=== PATIENT | female | born 1945 | race Caucasian/White ===

== ENCOUNTER 2020-04-11 19:04 | Inpatient (IN) | payer MEDICARE, SELFPAY ==
[2020-04-11] VITALS (13 sets, daily range): BP systolic 174–205; BP diastolic 42–83; PULSE 66–77; RESP 18–32; TEMP 37.3; O2SAT 70–100; BMI 30.2
--- NOTE | ~2020-04-11 | XR_ITS ---
XR abdomen NG/feed tube insert 04/12/2020 06:18 Indication: OG tube insertion. Procedure: Portable view of the lower chest and upper abdomen Comparison: 12/09/2016 Findings: OG tube in the stomach. Heart size normal. Bilateral perihilar airspace disease, pneumonia versus edema. Visualized bowel gas pattern is nonobstructive. Impression: 1: OG tube in the stomach. Reviewed, dictated and finalized at location A. SHORT ORDER Impression: 1: OG tube in the stomach.
--- NOTE | ~2020-04-11 | XR_ITS ---
XR abdomen obstructive series 04/13/2020 10:51 Indication: Abdomen pain. Evaluate for ileus or small bowel obstruction. Procedure: Supine and upright views of abdomen Comparison: 02/10/2021 Findings: NG tube in the stomach. Bowel gas pattern is nonobstructive. No free air identified. Mild d egenerative changes of the lumbar spine and hips. Vascular calcifications are present. No abnormal ca lcifications overlying the kidneys. Impression: 1: Nonobstructive bowel gas pattern. Reviewed, dictated and finalized at location A. TURE INSPECTOR Impression: 1: Nonobstructive bowel gas pattern.
--- NOTE | ~2020-04-11 | CT_ITS ---
EXAMINATION: CT brain wo con DATE: 04/22/2020 17:51 INDICATION: Possible stroke TECHNIQUE: Computed tomography (CT) of the head was performed without intravenous contrast. Sagittal and coronal reconstructions were performed. The mA was adjusted according to patient size. Iterative reconstruction technique was employed. The dose-length product was 605.33 mGy-cm. COMPARISON: head CT dated 12/09/2016 and MR dated 12/10/2016 FINDINGS: No acute intracranial hemorrhage, acute infarction or abnormal extra axial fluid collection. There is mild scattered white matter hypoattenuation consistent with chronic small vessel ischemic disease. S ymmetric prominence of the sulci and ventricles consistent with mild age-appropriate diffuse cerebral volume loss. No mass/mass effect. The orbits, paranasal sinuses and mastoid air cells are normal. IMPRESSION: 1. Age-related changes including mild diffuse volume loss and mild scattered white matter hypoattenua tion consistent with chronic small vessel ischemic disease. No acute intercranial process. Reviewed, dictated and finalized at location A. BILITATION TECH IMPRESSION: 1. Age-related changes including mild diffuse volume loss and mild scattered wh ite matter hypoattenuation consistent with chronic small vessel ischemic diseas e. No acute intercranial process.
--- NOTE | ~2020-04-11 | MR_ITS ---
EXAMINATION: MR brain/brain stem wo con DATE: 04/25/2020 10:52 INDICATION: Stroke TECHNIQUE: Magnetic resonance imaging (MRI) of the brain and brainstem was performed without intraven ous contrast. Sequences included sagittal and axial T1-weighted SE, axial diffusion-weighted FS SE, a xial T2*-weighted GRE, axial T2-weighted FLAIR, and axial T2-weighted FSE. Apparent diffusion coeffic ient (ADC) maps were created. COMPARISON: Head CT dated 04/22/2020 FINDINGS: There are no areas of restricted diffusion to suggest acute infarction. There are few small old lacun ar infarcts in the right cerebellar hemisphere. No intracranial hemorrhage or abnormal intracranial m ass lesion. There are scattered areas of nonspecific increased T2-weighted signal intensity in the ce rebral white matter, predominantly involving the deep and periventricular white matter. There are no intraparenchymal signal abnormalities seen on the other pulse sequences. Symmetric prominence of the sulci and ventricles consistent with mild age-appropriate diffuse cerebral volume loss. There are no abnormal extra-axial fluid collections. Flow voids are seen in the cerebral arteries on the T2-weight ed sequences consistent with their expected patency. Visualized orbits and soft tissues are unremarka ble. Mild mucosal thickening in the bilateral ethmoid sinuses. IMPRESSION: 1. Age-related changes and a few small old lacunar infarcts in the right cerebellar hemisphere. No ac chinik intracranial process. Reviewed, dictated and finalized at location A. ER AND POWDER CANNING LEADER IMPRESSION: 1. Age-related changes and a few small old lacunar infarcts in the right cerebe llar hemisphere. No acute intracranial process.
--- NOTE | ~2020-04-11 | XR_ITS ---
EXAMINATION: XR fl guide central line place DATE: 04/22/2020 16:07 INDICATION: Tunneled dialysis catheter placement TECHNIQUE: 2 fluoroscopic spot image of the right neck and upper chest was obtained during procedure performed by Dr. Her. Radiologist was not present for the imaging or procedure. The amount of fluoro scopy time used during this procedure was 2.0 minutes. COMPARISON: None. FINDINGS: There is a large-bore dual-lumen tunneled right internal jugular central venous catheter which loops into the right neck for stenting caudally into the superior vena cava with distal tip collimated beyo nd the inferior margin of the [id number]-oiha. Incompletely visualized surgical forceps which are likel y external to the patient. IMPRESSION: 1. Fluoroscopy utilized during right internal jugular tunneled central venous catheter placement. See procedure note for further detail. Reviewed, dictated and finalized at location A. TLESS DENT REPAIR TECHNICIAN IMPRESSION: 1. Fluoroscopy utilized during right internal jugular tunneled central venous c atheter placement. See procedure note for further detail.
--- NOTE | ~2020-04-11 | XR_ITS ---
EXAMINATION: XR chest 1V portable INDICATION: Shortness of breath TECHNIQUE: Portable AP chest at 2028 hours COMPARISON: 01/15/2017 FINDINGS: There are diffuse opacities throughout all lung zones. Small pleural effusions are suggeste d. There is no pneumothorax. The heart size is upper limits of normal for technique. There is calcifi ed atherosclerosis. IMPRESSION: 1. Diffuse lung disease, consistent with pneumonia/or pulmonary edema and/or atelectasis. 2. Small pleural effusions. Reviewed, dictated and finalized at location A. START DIRECTOR IMPRESSION: 1. Diffuse lung disease, consistent with pneumonia/or pulmonary edema and/or at electasis. 2. Small pleural effusions.
--- NOTE | ~2020-04-11 | XR_ITS ---
XR chest 1V portable 04/13/2020 05:52 Indication: Respiratory failure Procedure: AP portable chest Comparison: Comparison to multiple prior studies sequentially, with oldest reviewed study dated 09/2016. Findings: Endotracheal tube tip 1.5 cm above the cristina. NG tube in the stomach. Cardiomegaly. There is diffuse bilateral airspace disease. No significant effusion. No pneumothorax. No acute osseous abn ormality. Impression: 1: Improved bilateral airspace disease which may represent edema or pneumonia. Reviewed, dictated and finalized at location A. PRESIDENT AND PORTFOLIO MANAGER Impression: 1: Improved bilateral airspace disease which may represent edema or pneumonia.
--- NOTE | ~2020-04-11 | XR_ITS ---
EXAMINATION: XR chest port-a-cath/central DATE: 04/22/2020 15:57 INDICATION: Tunneled dialysis catheter placement TECHNIQUE: frontal view of the chest was obtained. COMPARISON: Chest radiograph dated 04/17/2020 FINDINGS: Removal of prior right internal jugular central venous catheter and placement of a new very poor tunn eled dual-lumen right internal jugular central venous catheter with distal tip at the caudal superior vena cava. Prior airspace opacities of resolved. No pulmonary edema, pleural effusion or pneumothora x. The cardiomediastinal silhouette is normal. Atherosclerotic aorta. Mitral annular calcification. IMPRESSION: 1. Right internal jugular central venous catheter tip in the caudal superior vena cava. No acute card iopulmonary disease. Reviewed, dictated and finalized at location A. N BROKER IMPRESSION: 1. Right internal jugular central venous catheter tip in the caudal superior ve na cava. No acute cardiopulmonary disease.
--- NOTE | ~2020-04-11 | US_ITS ---
EXAMINATION: US renal BI EXAM DATE: 04/12/2020 17:37 INDICATION: Elevated creatinine. TECHNIQUE: Multiple grayscale and Doppler images of the kidneys were obtained (by a technologist who performed the scan) and subsequently reviewed. Comparison is made to prior examination from 12/08/2016. FINDINGS: There is bilateral renal cortical thinning. Right kidney: There is normal contour and increased echogenicity. It measures 10.6 x 4.7 x 4.6 centi meters. There are no focal renal lesions identified. There is no hydronephrosis. Left kidney: There is normal contour and increased echogenicity. It measures 9.1 x 4.9 x 5.2 centime ters. There are no focal renal lesions identified. There is no hydronephrosis. Bladder unremarkable. IMPRESSION: 1. Mildly echogenic kidneys consistent with medical renal disease. Mild atrophy. 2. No hydronephrosis. Reviewed, dictated and finalized at location A. TIONSHIP COUNSELOR IMPRESSION: 1. Mildly echogenic kidneys consistent with medical renal disease. Mild atroph y. 2. No hydronephrosis.
--- NOTE | ~2020-04-11 | XR_ITS ---
XR chest 1V portable 04/15/2020 06:28 Indication: Respiratory failure Procedure: AP portable chest Comparison: Comparison to multiple prior studies sequentially, with oldest reviewed study dated 06/2020. Findings: Cardiomegaly. Interval removal of endotracheal and NG tubes. Diffuse bilateral airspace dis ease. Small pleural effusions. Impression: 1: Increasing diffuse bilateral airspace disease which may represent edema or pneumonia. 2: Small pleural effusions. Reviewed, dictated and finalized at location A. OGRAPHIC AIDE Impression: 1: Increasing diffuse bilateral airspace disease which may represent edema or p neumonia. 2: Small pleural effusions.
--- NOTE | ~2020-04-11 | US_ITS ---
EXAMINATION: US carotid duplex BI DATE: 04/23/2020 14:39 INDICATION: Stroke. TECHNIQUE: Grayscale, color Doppler, and pulsed Doppler images of the cervical carotid arteries were obtained. The degree of vessel stenosis is placed in one of the following categories: normal, <50%, 5 0-69%, >=70% but less than near-occlusion, near-occlusion, or total occlusion. Note that percent sten osis relative to normal distal artery lumen diameter is indirectly measured from velocity measurement s as described by Musa, et al. Radiology 2003; [id number]:340-346. COMPARISON: None. FINDINGS: RIGHT: The right common carotid artery (CCA) peak systolic velocity (PSV) is 50 cm/s. The right internal car otid artery (ICA) PSV is 89 cm/s. The right ICA end-diastolic velocity (EDV) is 21 cm/s. The right IC A/CCA PSV ratio is 1.8. Grayscale and color Doppler images yield an estimate of <50% diameter reducti on from plaque in the ICA. There is antegrade flow in the right vertebral artery. There is a catheter in right internal jugular vein. There is thrombus in right internal jugular vein. LEFT: The left CCA PSV is 81 cm/s. The left ICA PSV is 198 cm/s. The left ICA EDV is 19 cm/s. The left ICA/ CCA PSV ratio is 2.4. Grayscale and color Doppler images yield an estimate of >=50% diameter reductio n from plaque in the ICA. There is antegrade flow in the left vertebral artery. IMPRESSION: 1. <50% stenosis in the right internal carotid artery. 2. 50-69% stenosis in the left internal carotid artery. 3. Thrombus in right internal jugular vein around the catheter. Reviewed, dictated and finalized at location A. SUPPORT REPRESENTATIVE
--- NOTE | ~2020-04-11 | XR_ITS ---
XR chest 1V portable 04/17/2020 06:00 Indication: Respiratory failure Procedure: AP portable chest Comparison: Comparison to multiple prior studies sequentially, with oldest reviewed study dated 09/2020. Findings: Bilateral airspace disease, right greater than left. Peribronchial thickening. No significa nt effusion or pneumothorax. Large bore central venous catheter tip in the right atrium. No pneumotho rax. Impression: 1: Progression of diffuse bilateral airspace disease, right greater than left, most likely edema. Pne umonia less favored. Reviewed, dictated and finalized at location A. R HELPER Impression: 1: Progression of diffuse bilateral airspace disease, right greater than left, most likely edema. Pneumonia less favored.
--- NOTE | ~2020-04-11 | XR_ITS ---
XR chest 1V portable 04/16/2020 06:16 Indication: Respiratory failure Procedure: AP portable chest Comparison: Comparison to multiple prior studies sequentially, with oldest reviewed study dated 07/2020. Findings: Cardiomegaly. Diffuse pulmonary edema. Small pleural effusions. No pneumothorax. No acute o sseous abnormality. There is atherosclerosis. Impression: 1: Diffuse bilateral airspace disease, compatible with edema. 2: Small pleural effusions. Reviewed, dictated and finalized at location A. L ANALYST Impression: 1: Diffuse bilateral airspace disease, compatible with edema. 2: Small pleural effusions.
--- NOTE | ~2020-04-11 | XR_ITS ---
XR chest 1V portable 04/14/2020 06:13 Indication: Respiratory failure Procedure: AP portable chest Comparison: Comparison to multiple prior studies sequentially, with oldest reviewed study dated 12/2016. Findings: Borderline heart size. Bilateral perihilar interstitial infiltration with peribronchial thi ckening. Endotracheal tube tip 1 cm above the cristina. NG tube in the stomach. No significant pleural effusion or pneumothorax. No acute osseous abnormality. Impression: 1: Improving bilateral perihilar interstitial infiltrates which may represent edema or atypical pneum onia. Reviewed, dictated and finalized at location A. BLENDER Impression: 1: Improving bilateral perihilar interstitial infiltrates which may represent e liana or atypical pneumonia.
--- NOTE | ~2020-04-11 | XR_ITS ---
XR chest ET placement 04/12/2020 06:18 Indication: Endotracheal tube placement Procedure: AP portable chest Comparison: Comparison to multiple prior studies sequentially, with oldest reviewed study dated 05/2016. Findings: Endotracheal tube tip 11 mm above the cristina. NG tube in the stomach. Heart size normal. Th ere is diffuse bilateral airspace disease. No significant pleural effusion or pneumothorax. Impression: 1: Diffuse bilateral airspace disease has progressed, edema versus pneumonia. Reviewed, dictated and finalized at location A. GE PUMPER Impression: 1: Diffuse bilateral airspace disease has progressed, edema versus pneumonia.
--- NOTE | ~2020-04-11 | XR_ITS ---
EXAMINATION: XR mandible min 4V DATE: 04/26/2020 09:17 INDICATION: Foreign body in the face. TECHNIQUE: 2 views of the mandible were obtained. COMPARISON: None. FINDINGS: Bone alignment is normal. No fracture. There is no radiopaque foreign body. Partially visua lized is a right internal jugular central venous catheter. IMPRESSION: 1. No radiopaque foreign body. Reviewed, dictated and finalized at location B. FIELD SERVICE ENGINEER
--- NOTE | ~2020-04-11 | XR_ITS ---
XR chest port-a-cath/central 04/16/2020 11:38 Indication: Dialysis line placement Procedure: AP portable chest Comparison: Comparison to multiple prior studies sequentially, with oldest reviewed study dated 08/2020. Findings: Heart size upper normal. There is bilateral airspace disease centered in the perihilar loca tions. Large bore central venous catheter tip in the right atrium. No pneumothorax. No acute osseous abnormality. Impression: 1: Bilateral airspace disease, most likely edema. Pneumonia less favored. Reviewed, dictated and finalized at location A. ANALYTICS DEVELOPER Impression: 1: Bilateral airspace disease, most likely edema. Pneumonia less favored.
--- NOTE | 2020-04-11 19:15 | ECG_ITS ---
Measurements Intervals [place] Rate: 78 P: 18 SD: 142 QRS: 44 QRSD: 106 T: -24 QT: 375 QTc: 430 Interpretive Statements SINUS RHYTHM POSSIBLE LEFT ATRIAL ENLARGEMENT ST-T WAVE ABNORMALITY IN ANTEROLAT/INF LEADS- CONSIDER ISCHEMIA BASELINE ARTIFACT- I, III, AVR, AVL, AVF, V1-V2 ABNORMAL ECG Electronically Signed On 04-12-2020 7:02:22 TECHNICAL DELIVERY MANAGER by Floyd Multani D.O.
[2020-04-11] MEDS: FUROSEMIDE INJ 40 MG/4 ML VIAL IV PUSH (19:37)
[2020-04-11] MEDS: NITROGLYCERIN OINTMENT 1 INCH DOSE TRANSDERM (19:37)
[2020-04-11 19:42] LABS: Basophils Absolute Auto 0.1 K/mm3 (0.0-0.1); Basophils Percent Auto 0.4 % (0.2-1.2); Eosinophils Absolute Auto 0.1 K/mm3 (0-0.3); Eosinophils Percent Auto 0.5 % (0-4.4); Hematocrit 28.1 % (37.0-47.0); Hemoglobin 9.1 g/dL (12.0-15.0); Immature Granulocyte Absolute 0.15 K/mm3 (0.00-0.031); Immature Granulocyte Percent A 0.8 % (0-0.5); Lymphocytes Absolute Auto 0.89 K/mm3 (0.9-3.2); Lymphocytes Percent Auto 4.6 % (18.3-44.2); Mean Corpuscular HGB Conc 32.4 g/dl (32-36); Mean Corpuscular Hemoglobin 30.7 pg (26-34); Mean Corpuscular Volume 94.9 fl (80-100); Mean Platelet Volume 9.1 fl (7.4-10.4); Monocytes Absolute Auto 1.5 K/mm3 (0.1-0.6); Monocytes Percent Auto 7.5 % (2.6-8.5); Neutrophils Absolute Auto 16.9 K/mm3 (1.3-6.7); Neutrophils Percent Auto 86.2 % (45.5-73.1); Platelet Count Result 199 k/mm3 (150-375); Red Blood Count 2.96 M/mm3 (4.2-5.4); Red Cell Distribution Width 13.6 % (11.5-14.5); White Blood Count 19.6 K/mm3 (4.5-10.0)
[2020-04-11 19:52] LABS: Anion Gap 9 mmol/L (8-16); Blood Urea Nitrogen 45 mg/dL (7-17); Calcium 8.9 mg/dL (8.4-10.2); Carbon Dioxide 23 mmol/L (22-30); Chloride 106 mmol/L (98-107); Estimated Glomerular Filt Rate 11; Glucose 194 mg/dL (65-105); INR 1.2; Potassium 3.8 mmol/L (3.4-5.0); Prothrombin Time 16.2 Seconds (11.1-14.7); Sodium 138 mmol/L (137-145)
[2020-04-11 19:53] LABS: Partial Thromboplastin Time 36.9 SECONDS (22.3-36.8)
[2020-04-11 20:14] LABS: NT Pro B Type Natriuretic Pept 11700 PG/ML (5-100)
--- NOTE | 2020-04-11 21:04 | PC.NURSE ---
Patient's instructed to leave. Patient's Tramaine, left phone number of [phone].
--- NOTE | 2020-04-11 21:04 | ED.GENADULT ---
HPI - General Adult General Chief complaint: Shortness of Breath/Dyspnea Stated complaint: SOB Time Seen by Provider: 04/11/20 19:23 History of Present Illness HPI narrative: Patient is a 75-year-old female who presents the emergency department with chief complaint of shortness of breath. The patient reports she has history of congestive heart failure and has had some peripheral edema and increasing shortness of breath. Patient states that today she has been progressive on her shortness of breath and tonight it has gotten significantly worse. Patient when she presented to our facility had a room air saturation of 70%. Patient was also in severe shortness of breath and also had a significantly elevated blood pressure. Related Data Home Medications Medication Instructions Recorded Confirmed aspirin 81 mg tablet,delayed 81 mg PO DAILY 02/21/19 04/07/20 release cholecalciferol (vitamin D3) 50 2,000 unit PO DAILY 02/21/19 04/07/20 mcg (2,000 unit) tablet multivit with 1 tablet PO DAILY 06/25/19 04/07/20 amfdqtge-akoh-RL-lutein 8 mg iron-400 mcg-300 mcg tablet omega-3 fatty acids 1,000 mg 1,000 mg PO BID 06/25/19 04/07/20 capsule pen needle, diabetic 32 gauge x #100 each 06/25/19 04/07/20 1/ rosuvastatin 40 mg tablet 40 mg PO DAILY 06/25/19 04/07/20 carvedilol 12.5 mg tablet 12.5 mg PO Q12H 08/26/19 04/07/20 guanfacine 1 mg tablet 1 mg PO DAILY 08/26/19 04/07/20 Allergies Allergy/AdvReac Type Severity Reaction Status Date / Time Sulfa (Sulfonamide Allergy Mild RASH Verified 08/26/19 09:26 Antibiotics) Review of Systems Review of Systems: Narrative: A 10 system review of systems was completed on the patient and is negative except for what is stated in the HPI. Nursing and ancillary documentation was reviewed. [facility] Past Medical History Medical History Endocarditis Hyperthyroidism Other heart block Stage 3 chronic kidney disease Family History Family History Sibling Family history of Alzheimer's disease Grandparent Carcinoma of colon Father Family history of heart disease in male family member before age 55 Mother Family history of heart disease in male family member before age 55 Other Cerebrovascular accident Diabetes mellitus Hypertension Social History Social History Smoking packs per day: 1 Smoking cigarettes per day: 20.0 Years smoked: 25 Smoking pack-years: 25.00 Smoking status: Former smoker Tobacco type: cigarettes Second hand tobacco smoke exposure: No Smoking end date: 04/09/92 Alcohol intake: never Spiritual care concerns: No Exam Narrative: Exam Narrative: GENERAL: Well-appearing, well-nourished, and in acute respiratory distress. HEAD: Normocephalic, atraumatic. EYES: PERRLA and EOMI. ENT: Nares clear, no rhinorrhea or epistaxis. Mucous membranes moist. NECK: Supple. CHEST: Clear to auscultation. Moderate respiratory distress. HEART: Regular rate and rhythm. No murmur heard. Normal peripheral pulses. ABDOMEN: Soft, nontender, nondistended, normal active bowel sounds. EXTREMITIES: Normal range of motion. 3+ edema. SKIN: Warm, dry, no rash. NEURO: No focal deficits. Alert and oriented x3. PSYCH: Normal mood and affect. Course Course Emergency Course: Chest x-ray shows findings consistent with congestive heart failure BNP was 11,000 troponin is elevated at 1.207 Vital Signs Vital signs: Vital Signs Temperature 37.3 C 04/11/20 19:20 Pulse Rate 77 04/11/20 19:20 Respiratory Rate 32 H 04/11/20 19:20 Blood Pressure 205/61 H 04/11/20 19:20 Pulse Oximetry 70 L 04/11/20 19:20 Temperature 37.3 C 04/11/20 19:20 Pulse Rate 68 04/11/20 21:30 Respiratory Rate 25 H 04/11/20 21:30 Blood Pressure 181/56 H 04/11/20 21:30 Pulse Oxim
[2020-04-11] MEDS: ASPIRIN 81 MG CHEWABLE TABLET 324 MG PO (21:24)
[2020-04-11] MEDS: HEPARIN SODIUM 5,000 UNITS/ML VIAL 4000 UNITS IV PUSH (21:50)
--- NOTE | 2020-04-11 22:22 | PM.IMHP ---
H&P: HPI History of Present Illness Date/Time: 04/11/20 22:22 Chief Complaint: shortness of breath Narrative: This is a pleasant 75 year old female with known CAD+ s/p MT s/p #1 coronary stent placed, CHF, and HTN who presented to the hospital with increased shortness of breath over the past day. She remarks that she has had increased shortness of breath over the past day. She has had chronic lower extremity swelling which she does not think has changed recently. She denies any significant coughing, fevers, chills, palpitations, chest pain, nausea, vomiting, abdominal pain, dysuria, hematuria, diarrhea, or rectal bleeding. The patient was found to be hypoxic on arrival to the ER and placed on 4L of supplemental oxygen. Chest xray demonstrated cardiomegaly and bilateral pulmonary edema. Routine labs showed an elevated troponin of 1.270. The patient has been treated with IV lasix and anticoagulated with IV heparin. ER provider has consulted Cardiology. We have been asked to admit her to the hospital for further care. No other complaints. Review of Systems Review of Systems: All systems reviewed & are unremarkable except as noted in HPI and below PMFSH Past Medical History Medical History (Updated 04/12/20 @ 04:47 by Juan Ramon Rhodes MD) Endocarditis Hyperthyroidism Other heart block Stage 3 chronic kidney disease Surgical History Surgical History (Updated 04/11/20 @ 22:30 by Juan Ramon Rhodes MD) History of coronary artery stent placement Family History Family History Sibling Family history of Alzheimer's disease Grandparent Carcinoma of colon Father Family history of heart disease in male family member before age 55 Mother Family history of heart disease in male family member before age 55 Other Cerebrovascular accident Diabetes mellitus Hypertension Social History Social History Smoking packs per day: 1 Smoking cigarettes per day: 20.0 Years smoked: 25 Smoking pack-years: 25.00 Smoking status: Former smoker Tobacco type: cigarettes Second hand tobacco smoke exposure: No Smoking end date: 04/09/92 Alcohol intake: never Substance use: never Substance use type: does not use Spiritual care concerns: No Meds Home Medications and Allergies Home Medications Medication Instructions Recorded Confirmed Type aspirin 81 mg tablet,delayed 81 mg PO DAILY 02/21/19 04/07/20 History release cholecalciferol (vitamin D3) 50 2,000 unit PO DAILY 02/21/19 04/07/20 History mcg (2,000 unit) tablet multivit with 1 tablet PO DAILY 06/25/19 04/07/20 History amiuwraf-uvka-YJ-lutein 8 mg iron-400 mcg-300 mcg tablet omega-3 fatty acids 1,000 mg 1,000 mg PO BID 06/25/19 04/07/20 History capsule pen needle, diabetic 32 gauge x #100 each 06/25/19 04/07/20 History 1/6 rosuvastatin 40 mg tablet 40 mg PO DAILY 06/25/19 04/07/20 History amlodipine 10 mg tablet 10 mg PO DAILY #90 tablet 08/26/19 04/07/20 Rx carvedilol 12.5 mg tablet 12.5 mg PO Q12H 08/26/19 04/07/20 History guanfacine 1 mg tablet 1 mg PO DAILY 08/26/19 04/07/20 History isosorbide mononitrate 30 mg 60 mg PO DAILY #180 tablet 11/14/19 04/07/20 Rx tablet,extended release 24 hr furosemide 80 mg tablet 80 mg PO QAM #45 tablet 12/22/19 04/07/20 Rx insulin detemir U-100 100 unit/mL See Rx Instructions SUB-Q .COMPLEX 01/15/20 04/07/20 Rx (3 mL) subcutaneous pen #15 ml blood sugar diagnostic #300 each 02/12/20 04/07/20 Rx hydralazine 25 mg tablet 75 mg PO TID #270 tablet 02/12/20 04/07/20 Rx levothyroxine 75 mcg tablet See Rx Instructions .ROUTE 03/08/20 04/07/20 Rx .COMPLEX #90 tablet epoetin oscar 20,000 unit/2 mL 20,000 unit SUBCUT 2XW #2 ml 03/10/20 04/07/20 Rx injection solution clopidogrel 75 mg tablet See Rx Instructions .ROUTE 03/24/20 04/07/20 Rx .COMPLEX #90 tablet Allergies Aller
[2020-04-11] MEDS: HEPARIN SOD/D5W 100 UNITS/ML 25,000 UNITS/250 ML BAG 9 UNITS IV CONT (23:21)
--- NOTE | 2020-04-11 23:33 | ADMGEN ---
This patient, Jing Lawson, was admitted to [facility]. Patient/family oriented to hospital policies and general routines including ID bracelet, bed and alarms, visiting hours, pain management, procedures, bathroom and other care routines, personal items, smoking policy, room service/diet, and visiting hours. Information on how to activate the Rapid Response Team has been discussed. Patient/Family are encouraged to report perceived risks to care and to ask questions if they do not understand what they are told or what they should do.
[2020-04-11] MEDS: hydrALAZINE HCL 20 MG/ML VIAL 10 MG IV PUSH (23:51)
[2020-04-12] VITALS (36 sets, daily range): BP systolic 112–208; BP diastolic 40–91; PULSE 44–90; RESP 14–32; TEMP 34.7–37.7; O2SAT 68–100; BMI 30.2
--- NOTE | 2020-04-12 | ECHO_ITS ---
Patient Info Name: Jing Lawson Age: 75 years : 1945 Gender: Female Ht: 67 in Wt: 193 lbs BSA: 2.06 m2 HR: 53 bpm BP: 134 / 78 mmHg Heart Rhythm: Bradycardia Technical Quality: Good Exam Date: 04/12/2020 3:09 PM Exam Location: [facility] Pulmonary Exam Room: ICU Patient Status: Inpatient Admit Date: 04/11/2020 Staff Ordering Physician: Oz Rich MD Public Safety Teacher: Allyson Magallon RDCS Attending Provider: Juan Ramon Rhodes MD Referring Physician: Layla MONTENEGRO; Exam Type: CA echo doppler color flow Study Info Indications - elevated troponin chf Complete two-dimensional, color flow and Doppler transthoracic echocardiogram is performed. Summary 1. Complete two-dimensional, color flow and Doppler transthoracic echocardiogram is performed. 2. Left ventricular chamber dimension is normal. 3. Left ventricular systolic function is normal, estimated at 60-65%. 4. There is moderately increased left ventricular wall thickness. 5. The left ventricular diastolic function is grade I diastolic dysfunction. 6. The basal inferior wall, and mid inferior wall are hypokinetic. 7. Left atrial chamber dimension is moderately enlarged. 8. The mitral valve has calcified annulus and anterior prolapse. 9. There is mild mitral valve regurgitation. 10. There is mild tricuspid valve regurgitation. 11. Mild pulmonary hypertension, estimated pulmonary arterial systolic pressure is 37 mmHg. Left Ventricle Left ventricular chamber dimension is normal. Left ventricular systolic function is normal, estimated at 60-65%. There is moderately increased left ventricular wall thickness. The left ventricular diastolic function is grade I diastolic dysfunction. The basal inferior wall, and mid inferior wall are hypokinetic. All other dutta appear normal. Right Ventricle Right ventricular chamber dimension is normal. Right ventricular systolic function is normal. Left Atria Left atrial chamber dimension is moderately enlarged. Right Atria Right atrial chamber dimension is normal. Atrial Septum Intact interatrial septum visualized by color flow imaging. Aortic Valve The aortic valve is probable trileaflet. There is mild aortic valve sclerosis. There is no aortic valve stenosis. There is trace aortic valve regurgitation. Pulmonic Valve The pulmonic valve is normal. There is no pulmonic valve stenosis. There is trace pulmonic regurgitation. Mitral Valve The mitral valve has calcified annulus and anterior prolapse. There is no mitral valve stenosis. There is mild mitral valve regurgitation. Tricuspid Valve The tricuspid valve leaflets are normal. There is no significant tricuspid valve stenosis. There is mild tricuspid valve regurgitation. Mild pulmonary hypertension, estimated pulmonary arterial systolic pressure is 37 mmHg. Pericardium/Pleural The pericardium appears normal. There is small pericardial effusion. Inferior Vena Cava Dilated inferior vena cava with <50% collapse upon inspiration consistent with elevated right atrial pressure, 10 mmHg. Aorta The aortic root size at the sinus of Valsalva is normal. The prox ascending aorta size is normal. There is mild aortic atherosclerosis. Left Ventricular Outflow Tract Name Value Normal LVOT 2D
--- NOTE | 2020-04-12 05:15 | ECG_ITS ---
Measurements Intervals [place] Rate: 82 P: 6 LA: 124 QRS: 26 QRSD: 104 T: -84 QT: 361 QTc: 423 Interpretive Statements SINUS RHYTHM POSSIBLE LEFT ATRIAL ENLARGEMENT ST-T WAVE ABNORMALITY IN INF/LAT LEADS- CONSIDER ISCHEMIA ABNORMAL ECG Electronically Signed On 04-12-2020 7:11:58 MULTI SPINDLE OPERATOR by Floyd Multani D.O.
[2020-04-12 05:30] LABS: Alveolar/Arterial O2 Gradient 329.1 mmHg; Base Excess ABG -2.9 mEq/l (+/-2.0); Fractional Inspired Oxygen 60 %; HCO3 ABG 22.2 mEq/l (22.0-26.0); Modified Allen's Test Pass; Oxygen Content ABG 12.7 %vol (16.0-22.0); Oxygen Saturation ABG 88.1 % (95.0-100.0); Oxyhemoglobin 86.7 % THb (90.0-100.0); PCO2 ABG 39.4 mmHg (35.0-45.0); PO2 ABG 55.4 mmHg (80.0-100.0); PO2 FiO2 Ratio Arterial Blood 0.92 %; Site Drawn LEFT RADIAL; Total Hemoglobin 10.4 g/dL (12.0-18.0); pH ABG 7.368 (7.350-7.450)
[2020-04-12 05:32] LABS: Device NON-REBREATHER MASK
[2020-04-12 05:49] LABS: Glucose Point of Care 192 (65-105)
[2020-04-12 05:53] LABS: Basophils Absolute Auto 0.1 K/mm3 (0.0-0.1); Basophils Percent Auto 0.4 % (0.2-1.2); Eosinophils Absolute Auto 0.1 K/mm3 (0-0.3); Eosinophils Percent Auto 0.4 % (0-4.4); Hematocrit 30.1 % (37.0-47.0); Hemoglobin 9.8 g/dL (12.0-15.0); Immature Granulocyte Absolute 0.14 K/mm3 (0.00-0.031); Immature Granulocyte Percent A 0.8 % (0-0.5); Lymphocytes Absolute Auto 0.97 K/mm3 (0.9-3.2); Lymphocytes Percent Auto 5.3 % (18.3-44.2); Mean Corpuscular HGB Conc 32.6 g/dl (32-36); Mean Corpuscular Hemoglobin 30.7 pg (26-34); Mean Corpuscular Volume 94.4 fl (80-100); Mean Platelet Volume 9.2 fl (7.4-10.4); Monocytes Absolute Auto 1.4 K/mm3 (0.1-0.6); Monocytes Percent Auto 7.4 % (2.6-8.5); Neutrophils Absolute Auto 15.8 K/mm3 (1.3-6.7); Neutrophils Percent Auto 85.7 % (45.5-73.1); Platelet Count Result 201 k/mm3 (150-375); Red Blood Count 3.19 M/mm3 (4.2-5.4); Red Cell Distribution Width 13.4 % (11.5-14.5); White Blood Count 18.4 K/mm3 (4.5-10.0)
[2020-04-12 05:59] LABS: Partial Thromboplastin Time 84.3 SECONDS (22.3-36.8)
--- NOTE | 2020-04-12 06:14 | PCRCNOTE ---
AT 05:20 AM I GAVE PT A ALBUTEROL TX. PT LUNGS WERE DIMINISHED AND RR IN 30'S-40'S. PT THEN WAS MOVED TO ICU WHERE I ASSISTED WITH INTUBATION 7.5 TUBE AT 25 AT THE LIP.
[2020-04-12] MEDS: SUCCINYLCHOLINE CHLORIDE 20 MG/ML 10 ML VIAL 100 MG IV PUSH (06:15)
[2020-04-12] MEDS: ETOMIDATE 20 MG/10 ML AMPUL 15 MG IV PUSH (06:15)
[2020-04-12] MEDS: FENTANYL 2,500MCG/NS250ML(*CRX 2,500 MCG/250 ML BAG IV CONT (06:16)
[2020-04-12 06:18] LABS: Anion Gap 9 mmol/L (8-16); Blood Urea Nitrogen 45 mg/dL (7-17); Calcium 8.8 mg/dL (8.4-10.2); Carbon Dioxide 24 mmol/L (22-30); Chloride 105 mmol/L (98-107); Estimated CRCL calculation 12 ml/min; Estimated Glomerular Filt Rate 11; Glucose 199 mg/dL (65-105); Magnesium 2.2 mg/dL (1.6-2.3); Potassium 3.8 mmol/L (3.4-5.0); Sodium 138 mmol/L (137-145)
--- NOTE | 2020-04-12 06:18 | P.PNCROSS_ITS ---
Event Note Event Note Event Note: RAPID RESPONSE NOTE Called to bedside via rapid response. Nursing staff found the patient to be severely short of breath after using the commode. On my arrival to bedside the patient is on a nonrebreather, diaphoretic and tachypneic w/ RR in the mid 40s. Auscultation revealed bilateral coarse breath sounds and crackles. We obtained a STAT EKG and ABG. ABG demonstrated a PO2 of 55 mm Hg. The patient appeared very fatigued and in jackelin respiratory failure. I was going to initiate the patient on Bipap although she suddenly became very nauseated and began to gag. I gave the patient another dose of IV lasix and transferred her to the ICU. She was intubated in the ICU and placed on mechanical ventilation. We will obtain her morning labs now and repeat ABG. CXR was obtained. I have consulted and discussed the case in detail with our Hospital Product Specialist, Dr. Oropeza. Nursing staff has informed Cardiology of the overnight events. I will continue to assess the patient as needed.
--- NOTE | 2020-04-12 06:18 | WPDPROCEDUR ---
Procedures Intubation Intubation Date: 04/12/20 Intubation Time: 05:40 A pre-procedural Time-Out was completed immediately before starting the procedure and confirmed: Patient Identification, Site, Procedure, Patient Position and the Availability of Requisite Equipment: Yes Sedative: etomidate Mg given: 15 Paralytic: succinylcholine Mg given: 100 Laryngoscope: Watson ET tube size: 7.5 Tube secured depth (cm): 25 Tube secured location: teeth Tube placement confirmation: visualized tube passing through cords, equal breath sounds bilaterally, no breath sounds over epigastrium and confirmation by capnometry Patient tolerated procedure: well Intubation complications: none Additional comments: Date of service was 04/12/2020 at 05:40 hrs.
[2020-04-12] MEDS: RAPID SEQUENCE INTUBATION KIT 1 EACH (06:26)
[2020-04-12 08:17] LABS: Alveolar/Arterial O2 Gradient 561.8 mmHg; Base Excess ABG -4.7 mEq/l (+/-2.0); Carboxyhemoglobin 0.2 % THb (0-2.0); Fractional Inspired Oxygen 100 %; HCO3 ABG 21.3 mEq/l (22.0-26.0); Methemoglobin ABG 0.4 %THb (0-1.5); Oxygen Saturation ABG 97.5 % (95.0-100.0); PCO2 ABG 43.3 mmHg (35.0-45.0); PO2 ABG 107.9 mmHg (80.0-100.0); PO2 FiO2 Ratio Arterial Blood 1.08 %; Reduced Hemoglobin 3.4 %THb (0-5.0); Total Hemoglobin 9.5 g/dL (12.0-18.0); pH ABG 7.309 (7.350-7.450)
[2020-04-12 08:18] LABS: Arterial Blood Gas PEEP 5 cmH2O; Arterial Blood Gas Vent Mode CMV; Arterial Blood Gas Ventilator rate 14 /MIN; Device VENTILATOR; Modified Allen's Test Pass; Site Drawn RIGHT RADIAL
[2020-04-12 08:19] LABS: Arterial Blood Gas Tidal Volume 400 ml
[2020-04-12] MEDS: INSULIN ASPART (*BKC) 100 UNITS/ML SUB-Q (09:20)
[2020-04-12] MEDS: FUROSEMIDE INJ 100 MG/10 ML VIAL 80 MG IV PUSH ×2 (09:21→17:56)
[2020-04-12] MEDS: carvediloL 6.25 MG TABLET PO (09:23)
[2020-04-12] MEDS: ROSUVASTATIN 10 MG TABLET 40 MG PO (09:23)
[2020-04-12 09:34] LABS: Glucose Point of Care 214 (65-105)
--- NOTE | 2020-04-12 11:10 | WPDCNINT ---
Assessment and Plan Assessment and plan (1) Acute respiratory failure: Qualifiers: Respiratory failure complication: hypoxia Qualified Code(s): J96.01 - Acute respiratory failure with hypoxia Code(s): J96.00 - Acute respiratory failure, unspecified whether with hypoxia or hypercapnia Status: Acute Assessment and Plan: Acute Respiratory failure secondary to pulmonary edema and congestive heart failure, possible pneumonia as patient has elevated white count and had episode of fever Continue full mechanical ventilation support to prevent hypoxemia/hypercarbia and end organ damage. ABG and PCXR reviewed and will repeat in am. Increase PEEP to 8 Start Lasix IV 80 mg q.8 hours Rocephin and doxycycline Blood culture already sent (2) Acute CHF: Qualifiers: Heart failure type: unspecified Qualified Code(s): I50.9 - Heart failure, unspecified Code(s): I50.9 - Heart failure, unspecified Status: Acute Assessment and Plan: Repeat echocardiogram ordered (3) Acute non-ST elevation myocardial infarction (NSTEMI): Code(s): I21.4 - Non-ST elevation (NSTEMI) myocardial infarction Status: Acute Assessment and Plan: r/o NSTEMI w/ elevated troponin. EKG reviewed and does not show any ST elevation Continue aspirin , anticoagulation with IV heparin. Trend troponin. Resume statin Cardiology consult (4) Chronic renal failure, stage 4 (severe): Code(s): N18.4 - Chronic kidney disease, stage 4 (severe) Status: Acute Assessment and Plan: Patient was seen by welfare worker as an outpatient and was considered close to needing dialysis Her creatinine today is 4.1. I will start patient on Lasix and see if she responds and produces urine She may need dialysis for volume control if does not respond to diuretic therapy I have consulted Dr. Gee who has also seen her as an outpatient (5) Type 2 diabetes mellitus without complication: Qualifiers: Diabetes mellitus senior care insulin use: with cableman use Qualified Code(s): E11.9 - Type 2 diabetes mellitus without complications; Z79.4 - retail mortgage banker (current) use of insulin Code(s): E11.9 - Type 2 diabetes mellitus without complications Status: Chronic Assessment and Plan: Accuchecks, SSI Coverage, hypoglycemic protocol. (6) Hyperlipidemia: Qualifiers: Hyperlipidemia type: unspecified Qualified Code(s): E78.5 - Hyperlipidemia, unspecified Code(s): E78.5 - Hyperlipidemia, unspecified Status: Acute Assessment and Plan: Resume rosuvastatin (7) GERD (gastroesophageal reflux disease): Qualifiers: Esophagitis presence: esophagitis presence not specified Qualified Code(s): K21.9 - Gastro-esophageal reflux disease without esophagitis Code(s): K21.9 - Gastro-esophageal reflux disease without esophagitis Status: Acute Assessment and Plan: Start PPI therapy. (8) Hypothyroidism: Qualifiers: Hypothyroidism type: unspecified Qualified Code(s): E03.9 - Hypothyroidism, unspecified Code(s): E03.9 - Hypothyroidism, unspecified Status: Acute Assessment and Plan: Resume levothyroxine PO. Additional Plan DVT prophylaxis -patient currently on IV heparin infusion Stress ulcer prophylaxis -start PPI Nutrition -start Tube Feeds Code Status - Full Code Total Critical Care Time - 40 minutes Due to a high probability of clinically significant, life threatening deterioration, the patient required my highest level of preparedness to intervene emergently and I personally spent this critical care time directly and personally managing the patient. This critical care time included obtaining a history; examining the patient; pulse oximetry; ordering and review of studies; arranging urgent treatment with development of a management plan; evaluation of patient's response to treatment; frequent reassessme
[2020-04-12 11:41] LABS: Partial Thromboplastin Time 97.7 SECONDS (22.3-36.8)
--- NOTE | 2020-04-12 11:52 | PM.CNCAR ---
Assessment and Plan Assessment and plan (1) Acute on chronic renal failure: Code(s): N17.9 - Acute kidney failure, unspecified; N18.9 - Chronic kidney disease, unspecified Status: Acute Assessment and Plan: Followed by Nephrology (2) Coronary disease: Code(s): I25.10 - Atherosclerotic heart disease of [place] coronary artery without angina pectoris Status: Acute Assessment and Plan: history of stenting. Continue heparin, aspirin. Add clopidogrel 75 mg daily. (3) Elevated troponin: Code(s): R77.8 - Other specified abnormalities of plasma proteins Status: Acute Assessment and Plan: troponins are elevated but without significant rise or fall. This could be related to underlying renal failure versus sepsis. Cannot completely exclude ACS. Continue heparin drip. 2D echocardiogram with Doppler to be ordered and reviewed. Coronavirus swab to be performed (4) Acute on chronic diastolic (congestive) heart failure: Code(s): I50.33 - Acute on chronic diastolic (congestive) heart failure Status: Acute Assessment and Plan: Agree with IV Lasix aggressively in the form of furosemide 80 mg q.8 hours. (5) Hypertension associated with diabetes: Code(s): E11.59 - Type 2 diabetes mellitus with other circulatory complications; I15.2 - Hypertension secondary to endocrine disorders Status: Acute Assessment and Plan: Continue carvedilol. Up titrate as able. Further recommendations depend on the above test results and response to treatment. Very well may need dialysis for volume removal. History of Present Illness History of Present Illness Consult date/time: 04/12/20 11:52 Requesting physician: Mitchell James MD Consult reason: congestive heart failure Reason For Visit: CHF, NSTEMI Narrative: Date of service 04/12/2020 History: Patient is a 75-year-old female who is currently intubated and sedated. Cardiology consultation because of shortness of breath and positive troponins. She does have history of coronary disease and previous PR. She also has history of heart failure and hypertension. Came to the hospital because of worsening shortness of breath. She does have chronic lower extremity swelling and was found to be hypoxic and placed on 4 L via nasal cannula. Initial troponins were mildly elevated. They remain mildly elevated. She did decompensate her earlier today and transfer to the ICU where the patient has subsequently been intubated. Patient was not having any coughing fevers or chills. There was reportedly no chest pain prior to intubation either. Her blood pressure was are Petterchak markedly elevated upon presentation with a systolic blood pressure greater than 200. Her O2 sats were in the 70s initially. She was given some diuretics but again decompensated and needed to be intubated. She was started on IV heparin for anticoagulation given elevated troponin. Review of Systems Review of Systems: All systems reviewed & are unremarkable except as noted in HPI and below Constitutional: Constitutional: Denies chills Eyes: Eyes: Denies blurry vision ENT: Denies epistaxis Cardiovascular: Cardiovascular: Denies chest pain and Reports leg edema Respiratory: Respiratory: Reports dyspnea Gastrointestinal: Gastrointestinal: Denies abdominal pain Genitourinary: Genitourinary: Denies flank pain Musculoskeletal: Musculoskeletal: Denies neck pain Integumentary/Breasts: Skin/Breast: Denies dry skin Neurologic: Denies headache(s) Psychiatric: Psychiatric: Denies anxiety and Denies confusion Endocrine: Endocrine: Denies excessive sweating Hematologic/Lymphatic: Hematologic/Lymphatic: Denies easy bleeding Allergic/Immunologic: Allergic/Immunologic: Denies lip swelling PMFSH Past Medical History Medical History Endocarditis Hyperthyroidism Other heart b
[2020-04-12 12:27] LABS: Glucose Point of Care 166 (65-105)
--- NOTE | 2020-04-12 13:18 | PM.CNNEP ---
Assessment and Plan Assessment and plan (1) Chronic renal failure, stage 4 (severe): Code(s): N18.4 - Chronic kidney disease, stage 4 (severe) Status: Acute Assessment and Plan: Jing Has chronic kidney disease stage 4. Her creatinine seems relatively stable as compared to what she was running as an outpatient. We have talked in the office about things and she does want to do dialysis If it comes down to it. She went to education and decide on peritoneal dialysis. However if she needs it now we can do acute hemo to get her under control then switch over to peritoneal dialysis as an outpatient. The patient is making some urine. She was just placed on low furosemide 80 mg q.8 hours. We will see how she does with urine output and with her BUN and creatinine and other electrolytes. We can decide whether which she should start dialysis as a day-by-day assessment. Will re-evaluate this tomorrow. Will check a renal ultrasound to make sure there is nothing going on to reduce her urine output other than just chronic disease. (2) Essential (primary) hypertension: Code(s): I10 - Essential (primary) hypertension Status: Acute Assessment and Plan: The blood pressure is under good control. Her amlodipine has been held. I agree with this. Will leave the blood pressure between 120 and 140 if possible to help with her urine output. (3) Acute on chronic diastolic (congestive) heart failure: Code(s): I50.33 - Acute on chronic diastolic (congestive) heart failure Status: Acute Assessment and Plan: The patient has volume overload on exam and also x-ray. She is getting diuresis. Consider dialysis down the line if this is not effective. (4) Coronary disease: Code(s): I25.10 - Atherosclerotic heart disease of [place] coronary artery without angina pectoris Status: Acute Assessment and Plan: The patient has a positive troponin. Cardiology is on the case. She is on a heparin drip. (5) Anemia due to stage 4 chronic kidney disease: Code(s): N18.4 - Chronic kidney disease, stage 4 (severe); D63.1 - Anemia in chronic kidney disease Status: Acute Assessment and Plan: hemoglobin is 9.8. We will keep an eye on this. It seems to have risen gradually over the last few days. (6) Type 2 diabetes mellitus without complication: Qualifiers: Diabetes mellitus long-term insulin use: with long-term use Qualified Code(s): E11.9 - Type 2 diabetes mellitus without complications; Z79.4 - superintendent container terminal (current) use of insulin Code(s): E11.9 - Type 2 diabetes mellitus without complications Status: Chronic Assessment and Plan: She is on Accu-Cheks and sliding-scale insulin (7) Hypothyroidism: Qualifiers: Hypothyroidism type: unspecified Qualified Code(s): E03.9 - Hypothyroidism, unspecified Code(s): E03.9 - Hypothyroidism, unspecified Status: Acute Assessment and Plan: she is on supplements for this. History of Present Illness Reason for Consult Consult date: 04/12/20 Chief Complaint Chief complaint: CHF, NSTEMI History of Present Illness Narrative: Jing Is a very pleasant 75-year-old lady who has chronic kidney disease stage 4, hypertension, endocarditis, heart block, hyperthyroidism, congestive heart failure, coronary disease status post MN status post stent, who was in her usual state of health until she started becoming short of breath over the past day or 2. This gradually worsened in so she came over to the emergency room in [place]. Evaluation in the emergency room found her to be volume overloaded. This was by exam and also by x-ray. Tests showed that her troponins were elevated. Cardiology has seen the patient. She is on a heparin drip. Her shortness of breath worsened and so she was intubated and now she is sedated on the ventilator. The patient cannot give a history. All the
[2020-04-12 16:15] LABS: Glucose Point of Care 141 (65-105)
--- NOTE | 2020-04-12 17:30 | PM.IMPN ---
Progress Note: A&P Assessment and Plan (1) Acute respiratory failure: Qualifiers: Respiratory failure complication: hypoxia Qualified Code(s): J96.01 - Acute respiratory failure with hypoxia Code(s): J96.00 - Acute respiratory failure, unspecified whether with hypoxia or hypercapnia Status: Acute Assessment and Plan: Secondary to acute heart failure exacerbation.. Continue CHF treatment. Vent management per relay man COVID swab pending (2) Acute CHF: Qualifiers: Heart failure type: unspecified Qualified Code(s): I50.9 - Heart failure, unspecified Code(s): I50.9 - Heart failure, unspecified Status: Acute Assessment and Plan: worsening CHF may be secondary to acute myocardial infarction., Continue IV lasix therapy. Monitor Is and Os, Echocardiogram pending. (3) Acute non-ST elevation myocardial infarction (NSTEMI): Code(s): I21.4 - Non-ST elevation (NSTEMI) myocardial infarction Status: Acute Assessment and Plan: r/o NSTEMI w/ elevated troponin. Continue aspirin therapy, Continue anticoagulation with IV heparin. And Plavix added per Cardiology. Troponin relatively flat so could all be heart failure and renal failure. Continue Cardiology recommendations. (4) Type 2 diabetes mellitus without complication: Qualifiers: Diabetes mellitus terminal press operator insulin use: with assisted use Qualified Code(s): E11.9 - Type 2 diabetes mellitus without complications; Z79.4 - care home (current) use of insulin Code(s): E11.9 - Type 2 diabetes mellitus without complications Status: Chronic Assessment and Plan: Accuchecks, SSI Coverage, hypoglycemic protocol. (5) Hyperlipidemia: Qualifiers: Hyperlipidemia type: unspecified Qualified Code(s): E78.5 - Hyperlipidemia, unspecified Code(s): E78.5 - Hyperlipidemia, unspecified Status: Acute Assessment and Plan: Resume statin . (6) GERD (gastroesophageal reflux disease): Qualifiers: Esophagitis presence: esophagitis presence not specified Qualified Code(s): K21.9 - Gastro-esophageal reflux disease without esophagitis Code(s): K21.9 - Gastro-esophageal reflux disease without esophagitis Status: Acute Assessment and Plan: Continue PPI therapy. (7) Hypothyroidism: Qualifiers: Hypothyroidism type: unspecified Qualified Code(s): E03.9 - Hypothyroidism, unspecified Code(s): E03.9 - Hypothyroidism, unspecified Status: Acute Assessment and Plan: continue levothyroxine. (8) Chronic renal failure, stage 4 (severe): Code(s): N18.4 - Chronic kidney disease, stage 4 (severe) Status: Acute Assessment and Plan: Renal function slightly worse. Nephrology consult id and renal sonogram pending Subjective Date/time seen: 04/12/20 17:30 Interval history: 75-year-old hypertensive female with chronic renal failure stage 4 admitted with increasing shortness of breath and chest pain. Throughout the night became more acutely short of breath and had to be intubated and mechanically ventilated. Known ICU. Exam Narrative: Exam Narrative: Blood pressure 120/62 pulse is 52 satting 100% on FiO2 of 80 with a PEEP of 10 afebrile Pupil equal reactive light sclera anicteric Mouth ET tube secured Lungs appear clear CV regular rate rhythm no murmurs Abdomen is soft bowel sounds present Extremities trace to 1+ edema Neuro sedated Objective Data Vital Signs Vital Signs: Vital Signs - 24 hr 04/11/20 19:20 04/11/20 19:21 04/11/20 19:42 Temperature 37.3 C Pulse Rate 77 74 Respiratory Rate 32 H 30 H Blood Pressure 205/61 H 190/83 H Pulse Oximetry 70 L 99 95 04/11/20 20:07 04/11/20 20:18 04/11/20 20:25 Temperature Pulse Rate 71 69 Respiratory Rate 29 H 25 H Blood Pressure 186/56 H 185/42 H Pulse Oximetry 100 96 99 04/11/20 21:30 04/11/20 22:18 04/11/20 22:59
[2020-04-12 18:25] LABS: Partial Thromboplastin Time > 200.0 SECONDS (22.3-36.8)
--- NOTE | 2020-04-12 21:26 | PC.NURSE ---
Patient found to be 94.6 axillary. Temp vick placed and nayeli hugger applied. continue to monitor.
[2020-04-12 21:41] LABS: Glucose Point of Care 119 (65-105)
[2020-04-12 22:18] LABS: SARS-CoV-2 RNA PCR Negative
--- NOTE | 2020-04-12 23:42 | PC.NURSE ---
Dangeloemeka le off, continue to monitor temp/VS.
[2020-04-12 23:59] LABS: Partial Thromboplastin Time 73.5 SECONDS (22.3-36.8)
[2020-04-13] VITALS (33 sets, daily range): BP systolic 121–158; BP diastolic 41–63; PULSE 52–76; RESP 14–22; TEMP 36.7–37.6; O2SAT 93–100
[2020-04-13 01:09] LABS: Glucose Point of Care 116 (65-105)
[2020-04-13] MEDS: FUROSEMIDE INJ 100 MG/10 ML VIAL 80 MG IV PUSH (01:24)
[2020-04-13 04:39] LABS: Alveolar/Arterial O2 Gradient 149.3 mmHg; Base Excess ABG -4.3 mEq/l (+/-2.0); Fractional Inspired Oxygen 40 %; HCO3 ABG 20.8 mEq/l (22.0-26.0); Oxygen Saturation ABG 96.8 % (95.0-100.0); Oxyhemoglobin 95.1 % THb (90.0-100.0); PO2 ABG 92.2 mmHg (80.0-100.0); Total Hemoglobin 8.1 g/dL (12.0-18.0); pH ABG 7.356 (7.350-7.450)
[2020-04-13 04:40] LABS: Arterial Blood Gas PEEP 8 cmH2O; Arterial Blood Gas Tidal Volume 400 ml; Arterial Blood Gas Vent Mode ASSIST CONTROL; Arterial Blood Gas Ventilator rate 14 /MIN; Device VENTILATOR; Modified Allen's Test Unable to perform; Site Drawn LEFT RADIAL
[2020-04-13] MEDS: LEVOTHYROXINE SODIUM 75 MCG TABLET PO (05:32)
[2020-04-13] MEDS: HEPARIN SOD/D5W 100 UNITS/ML 25,000 UNITS/250 ML BAG 7 UNITS IV CONT (05:57)
[2020-04-13] MEDS: FENTANYL 2,500MCG/NS250ML(*CRX 2,500 MCG/250 ML BAG IV CONT (05:58)
[2020-04-13 06:03] LABS: Hematocrit 25.4 % (37.0-47.0); Mean Corpuscular HGB Conc 31.5 g/dl (32-36); Mean Corpuscular Hemoglobin 30.4 pg (26-34); Mean Corpuscular Volume 96.6 fl (80-100); Mean Platelet Volume 9.3 fl (7.4-10.4); Platelet Count Result 135 k/mm3 (150-375); Red Blood Count 2.63 M/mm3 (4.2-5.4); Red Cell Distribution Width 13.6 % (11.5-14.5); White Blood Count 14.1 K/mm3 (4.5-10.0)
[2020-04-13 06:12] LABS: Partial Thromboplastin Time 70.4 SECONDS (22.3-36.8)
[2020-04-13 06:25] LABS: Alanine Aminotransferase 12 U/L (4-35); Albumin Level 3.2 g/dL (3.5-5.1); Alkaline Phosphatase 34 U/L (38-126); Anion Gap 9 mmol/L (8-16); Aspartate Amino Transferase 24 U/L (14-36); Bilirubin,Total 0.4 mg/dL (0.2-1.3); Blood Urea Nitrogen 54 mg/dL (7-17); Calcium 8.3 mg/dL (8.4-10.2); Carbon Dioxide 25 mmol/L (22-30); Chloride 104 mmol/L (98-107); Estimated CRCL calculation 11 ml/min; Estimated Glomerular Filt Rate 9; Glucose 141 mg/dL (65-105); Magnesium 2.1 mg/dL (1.6-2.3); Phosphorus 6.3 mg/dL (2.5-4.5); Potassium 4.1 mmol/L (3.4-5.0); Sodium 138 mmol/L (137-145)
[2020-04-13] MEDS: HEPARIN SODIUM 5,000 UNITS/ML VIAL 4000 UNITS IV PUSH (06:31)
[2020-04-13 08:51] LABS: Glucose Point of Care 144 (65-105)
[2020-04-13] MEDS: ASPIRIN 325 MG TABLET PO (08:58)
[2020-04-13] MEDS: PANTOPRAZOLE SODIUM IV 40 MG VIAL IV PUSH (08:58)
[2020-04-13] MEDS: ROSUVASTATIN 10 MG TABLET 40 MG PO (08:58)
[2020-04-13] MEDS: carvediloL 6.25 MG TABLET PO ×2 (08:58→20:58)
--- NOTE | 2020-04-13 09:07 | PM.PNNEP ---
Progress Note: A&P Assessment and Plan (1) Chronic renal failure, stage 4 (severe): Code(s): N18.4 - Chronic kidney disease, stage 4 (severe) Status: Acute Assessment and Plan: Jing has chronic kidney disease stage 4. This is due to hypertension, diabetes, and vascular disease. Her baseline creatinine is around 4. Her creatinine is rising now. This is probably due to diuresis. Because of her volume overload and being on the ventilator, we do need to get fluid off. Her urine output was about 1000 yesterday on a large dose of diuretics. Her chest x-ray is better today. Discussed with Dr. Oropeza. He has ordered some albumin. I will also order some metolazone to enhance diuresis. If her creatinine gets too high we may need to resort to dialysis. Once she is on the machine she will probably not come off. (2) Essential (primary) hypertension: Code(s): I10 - Essential (primary) hypertension Status: Acute Assessment and Plan: The blood pressure is under good control. Her amlodipine has been held. I agree with this. Will leave the blood pressure between 120 and 150 if possible to help with her urine output. It should improve with diuresis. (3) Acute on chronic diastolic (congestive) heart failure: Code(s): I50.33 - Acute on chronic diastolic (congestive) heart failure Status: Acute Assessment and Plan: The patient has volume overload on exam and also x-ray. She is getting diuresis. Adding albumin and metolazone. (4) Coronary disease: Code(s): I25.10 - Atherosclerotic heart disease of [place] coronary artery without angina pectoris Status: Acute Assessment and Plan: The patient has a positive troponin. Cardiology is on the case. She is on a heparin drip. (5) Anemia due to stage 4 chronic kidney disease: Code(s): N18.4 - Chronic kidney disease, stage 4 (severe); D63.1 - Anemia in chronic kidney disease Status: Acute Assessment and Plan: hemoglobin is 9.8. We will keep an eye on this. It seems to have risen gradually over the last few days. (6) Type 2 diabetes mellitus without complication: Qualifiers: Diabetes mellitus [employer] insulin use: with superintendent [employer] use Qualified Code(s): E11.9 - Type 2 diabetes mellitus without complications; Z79.4 - intermediate teacher (current) use of insulin Code(s): E11.9 - Type 2 diabetes mellitus without complications Status: Chronic Assessment and Plan: She is on Accu-Cheks and sliding-scale insulin (7) Hypothyroidism: Qualifiers: Hypothyroidism type: unspecified Qualified Code(s): E03.9 - Hypothyroidism, unspecified Code(s): E03.9 - Hypothyroidism, unspecified Status: Acute Assessment and Plan: she is on supplements for this. Subjective Date/time seen: 04/13/20 09:07 Interval history: Patient is sedated. She does open her eyes but does not really interact. She does start to shaver when her eyes are open. She is on the ventilator. On no pressors. Review of Systems Review of Systems: ROS unobtainable: Yes unobtainable due to medical condition Exam Narrative: Exam Narrative: WDWN in NAD skin no rash head ncat lungs coarse bilaterally. cor reg no rub abd BS+ nontender and soft ext 1+ edema. Objective Data Vital Signs Vital Signs: Vital Signs - 24 hr 04/12/20 09:23 04/12/20 10:00 04/12/20 10:57 Temperature Pulse Rate 60 52 L 54 L Respiratory Rate 14 Blood Pressure 130/43 L Pulse Oximetry 100 100 04/12/20 12:00 04/12/20 14:00 04/12/20 14:06 Temperature 37.1 C Pulse Rate 48 L 47 L 51 L Respiratory Rate 16 23 H Blood Pressure 113/48 L 112/76 Pulse Oximetry 100 100 100 04/12/20 16:00 04/12/20 16:40 04/12/20 18:00 Temperature 37.1 C Pulse Rate 50 L 52 L 51 L Respiratory Rate 18 14 Blood Pressure 121/63 112/43 L Pulse Oximetry 100 100 100 04/12/20 18:12
[2020-04-13 09:15] LABS: Creatinine Urine 44.5 mg/dL
[2020-04-13 09:16] LABS: Sodium Urine Random 107 meq/L
[2020-04-13 09:23] LABS: Total Protein Urine Random 225 mg/dL; Ur Ttl Prot Creatinine Ratio 5.06 mg/mg (0-0.20)
--- NOTE | 2020-04-13 10:19 | PM.PNCARD ---
Progress Note: A&P Assessment and Plan (1) Acute on chronic renal failure: Code(s): N17.9 - Acute kidney failure, unspecified; N18.9 - Chronic kidney disease, unspecified Status: Acute Assessment and Plan: Followed by Nephrology (2) Coronary disease: Code(s): I25.10 - Atherosclerotic heart disease of [place] coronary artery without angina pectoris Status: Acute Assessment and Plan: history of stenting. Continue medical therapy (3) Elevated troponin: Code(s): R77.8 - Other specified abnormalities of plasma proteins Status: Acute Assessment and Plan: troponins are elevated but without significant rise or fall. This could be related to underlying renal failure/heart failure/BP. Cannot completely exclude ACS. Will discontinue heparin drip at this point. Continue aspirin, clopidogrel, beta-antonio (4) Acute on chronic diastolic (congestive) heart failure: Code(s): I50.33 - Acute on chronic diastolic (congestive) heart failure Status: Acute Assessment and Plan: In my opinion, I think this is predominantly related to renal failure and volume overload from said renal failure. She also was markedly hypertensive (5) Hypertension associated with diabetes: Code(s): E11.59 - Type 2 diabetes mellitus with other circulatory complications; I15.2 - Hypertension secondary to endocrine disorders Status: Acute Assessment and Plan: Continue carvedilol. Up titrate as able. Subjective Date/time seen: 04/13/20 10:19 Interval history: 75-year-old mid for shortness of breath. Date of service 04/13/2020: She is responsive. She is cold. A pressure is now stable. Denies any chest pain Review of Systems Review of Systems: All systems reviewed & are unremarkable except as noted in HPI and below Constitutional: Constitutional: Denies chills, Denies excessive sweating and Denies headache(s) Eyes: Eyes: Denies blurry vision ENT: Denies headache(s), Denies lip swelling, Denies epistaxis and Denies neck pain Cardiovascular: Cardiovascular: Denies chest pain, Reports leg edema and Reports dyspnea Respiratory: Respiratory: Reports dyspnea Gastrointestinal: Gastrointestinal: Denies abdominal pain Genitourinary: Genitourinary: Denies flank pain Musculoskeletal: Musculoskeletal: Denies neck pain Integumentary/Breasts: Skin/Breast: Denies dry skin Neurologic: Denies confusion and Denies headache(s) Psychiatric: Psychiatric: Denies anxiety and Denies confusion Endocrine: Endocrine: Denies excessive sweating Hematologic/Lymphatic: Hematologic/Lymphatic: Denies easy bleeding Allergic/Immunologic: Allergic/Immunologic: Denies lip swelling Exam Narrative: Exam Narrative: Currently intubated and sedated Const: General: comfortable; No confusion Orientation/consciousness: No confusion HENMT: General nose exam: Normal nares present Eyes: Sclera: abnormal sclerae Neck: Neck: no JVD Chest: Other: no chest wall deformities seen Resp: Auscultation: rhonchi and diminished lung sounds Cardio: Rate: regular rate Rhythm: regular rhythm Heart sounds: Murmur heart sound present Urinary Catheter: Urinary Catheter: patent and draining Skin: General skin exam: normal color Neuro: General: No confusion Other: currently intubated but coherent Extrem: General: edema Psych: Other: Appropriate mood Objective Data Vital Signs Vital Signs: Vital Signs - 24 hr 04/12/20 10:57 04/12/20 12:00 04/12/20 14:00 Temperature 37.1 C Pulse Rate 54 L 48 L 47 L Respiratory Rate 16 23 H Blood Pressure 113/48 L 112/76 Pulse Oximetry 100 100 100 04/12/20 14:06 04/12/20 16:00 04/12/20 16:40 Temperature 37.1 C Pulse Rate 51 L 50 L 52 L Respiratory Rate 18 Blood Pressure 121/63 Pulse Oximetry 100 100 100 04/12/20 18:00 04/12/20 18:12 04/12/20 18:13 Temperature Pulse Rate 51 L 49 L 51 L Respiratory R
[2020-04-13] MEDS: ALBUMIN HUMAN 25% 12.5 GM/50ML 50 ML IVPB ×3 (11:54→23:10)
--- NOTE | 2020-04-13 11:56 | PCDIET ---
Nutrition Follow-Up Complete: Nutrition Diagnosis: Inadequate oral intake related to oral intubation as evidenced by NPO status. Nutrition Goal: Patient to meet estimated nutritional needs. Goal in progress. Patient had reported residuals up to 350mL with Nepro rate of 10mL/hr. MD ordering obstructive series. Last recorded weight is 89.5 kg which is increased from last review, despite -I/O. Will monitor. Bowel Motility: Last documented BM on 04/12/20 x 1. Labs Reviewed: Hgb (8.0), Hct (25.4), Glu (141), BUN (54), Cr (4.6), Alb (3.2), Ca (8.3), PO4 (6.3) Meds Noted: Rocephin, Vibramycin, Fentanyl, Heparin, Synthroid, Versed, Protonix, Crestor Additional Notes: No documented pressure sores. Will continue to monitor with same goal. Nutrition Monitoring and Evaluation: Follow up every Sunday/Sunday. Follow daily in ICU rounds.
[2020-04-13 12:35] LABS: Glucose Point of Care 136 (65-105)
[2020-04-13] MEDS: metOLazone 5 MG TABLET PO (12:56)
--- NOTE | 2020-04-13 14:21 | WPDINTPN ---
Progress Note: A&P Assessment and Plan (1) Acute respiratory failure: Qualifiers: Respiratory failure complication: hypoxia Qualified Code(s): J96.01 - Acute respiratory failure with hypoxia Code(s): J96.00 - Acute respiratory failure, unspecified whether with hypoxia or hypercapnia Status: Acute Assessment and Plan: Acute Respiratory failure secondary to pulmonary edema and congestive heart failure, possible pneumonia as patient has elevated white count and had episode of fever Continue full mechanical ventilation support to prevent hypoxemia/hypercarbia and end organ damage. FiO2 40% and PEEP of 8. On CMV mode of ventilation Did not respond very well to the diuretics but chest x-ray improved Continue Rocephin and doxycycline Blood culture already sent (2) Acute CHF: Qualifiers: Heart failure type: unspecified Qualified Code(s): I50.9 - Heart failure, unspecified Code(s): I50.9 - Heart failure, unspecified Status: Acute Assessment and Plan: Echocardiogram 04/12/2020 showed EF of 60-65%, grade 1 diastolic dysfunction the basal inferior wall and mid inferior wall hypokinetic. -patient cardiology evaluation, -CHF likely related to renal failure and volume overload along with hypertensive urgency (3) Acute non-ST elevation myocardial infarction (NSTEMI): Code(s): I21.4 - Non-ST elevation (NSTEMI) myocardial infarction Status: Acute Assessment and Plan: r/o NSTEMI w/ elevated troponin. EKG reviewed and does not show any ST elevation -troponins elevated without significant rise or fall, heparin infusion will be discontinued Continue statin, aspirin, clopidogrel and beta-antonio -cardiology following closely (4) Chronic renal failure, stage 4 (severe): Code(s): N18.4 - Chronic kidney disease, stage 4 (severe) Status: Acute Assessment and Plan: Patient was seen by desktop support technician as an outpatient and was considered close to needing dialysis Her creatinine today is 4.60. Discussed with Nephrology, will try metolazone with albumin She may need dialysis for volume control if does not respond to diuretic therapy (5) Type 2 diabetes mellitus without complication: Qualifiers: Diabetes mellitus custodial insulin use: with custodial use Qualified Code(s): E11.9 - Type 2 diabetes mellitus without complications; Z79.4 - dialer (current) use of insulin Code(s): E11.9 - Type 2 diabetes mellitus without complications Status: Chronic Assessment and Plan: Accuchecks, SSI Coverage, hypoglycemic protocol. (6) Hyperlipidemia: Qualifiers: Hyperlipidemia type: unspecified Qualified Code(s): E78.5 - Hyperlipidemia, unspecified Code(s): E78.5 - Hyperlipidemia, unspecified Status: Acute Assessment and Plan: Continue statin (7) GERD (gastroesophageal reflux disease): Qualifiers: Esophagitis presence: esophagitis presence not specified Qualified Code(s): K21.9 - Gastro-esophageal reflux disease without esophagitis Code(s): K21.9 - Gastro-esophageal reflux disease without esophagitis Status: Acute Assessment and Plan: Start PPI therapy. (8) Hypothyroidism: Qualifiers: Hypothyroidism type: unspecified Qualified Code(s): E03.9 - Hypothyroidism, unspecified Code(s): E03.9 - Hypothyroidism, unspecified Status: Acute Assessment and Plan: Resume levothyroxine PO. Additional Plan DVT prophylaxis -will start heparin subcu Stress ulcer prophylaxis -start PPI Nutrition -start Tube Feeds Code Status - Full Code Total Critical Care Time -34 minutes Due to a high probability of clinically significant, life threatening deterioration, the patient required my highest level of preparedness to intervene emergently and I personally spent this critical care time directly and personally managing the patient. This critical care ti
[2020-04-13] MEDS: METOCLOPRAMIDE HCL INJ 10 MG/2 ML VIAL 5 MG IV PUSH ×2 (17:23→23:11)
[2020-04-13 17:24] LABS: Glucose Point of Care 117 (65-105)
--- NOTE | 2020-04-13 18:05 | PM.IMPN ---
Progress Note: A&P Assessment and Plan (1) Acute on chronic anemia: Code(s): D64.9 - Anemia, unspecified Status: Acute Assessment and Plan: Likely to be multifactorial GI has been consulted (2) Chronic renal failure, stage 4 (severe): Code(s): N18.4 - Chronic kidney disease, stage 4 (severe) Status: Acute Assessment and Plan: Nephrology following Bun/cr stabilized Continue to monitor I/O's (3) Acute respiratory failure: Qualifiers: Respiratory failure complication: hypoxia Qualified Code(s): J96.01 - Acute respiratory failure with hypoxia Code(s): J96.00 - Acute respiratory failure, unspecified whether with hypoxia or hypercapnia Status: Acute Assessment and Plan: Now extubated. Supportive care. (4) Acute on chronic renal failure: Code(s): N17.9 - Acute kidney failure, unspecified; N18.9 - Chronic kidney disease, unspecified Status: Acute Assessment and Plan: Continue to monitor. (5) Acute non-ST elevation myocardial infarction (NSTEMI): Code(s): I21.4 - Non-ST elevation (NSTEMI) myocardial infarction Status: Acute Assessment and Plan: SA, Plavix, beta blockade Cardiology on following. (6) Anemia due to stage 4 chronic kidney disease: Code(s): N18.4 - Chronic kidney disease, stage 4 (severe); D63.1 - Anemia in chronic kidney disease Status: Acute Assessment and Plan: Transfuse as needed (7) UTI due to Klebsiella species: Code(s): N39.0 - Urinary tract infection, site not specified; B96.89 - Other specified bacterial agents as the cause of diseases classified elsewhere Status: Acute Assessment and Plan: On Rocephin. (8) GERD (gastroesophageal reflux disease): Qualifiers: Esophagitis presence: esophagitis presence not specified Qualified Code(s): K21.9 - Gastro-esophageal reflux disease without esophagitis Code(s): K21.9 - Gastro-esophageal reflux disease without esophagitis Status: Acute Assessment and Plan: On PPI (9) Essential (primary) hypertension: Code(s): I10 - Essential (primary) hypertension Status: Acute Assessment and Plan: Continue to monitor. Subjective Date/time seen: 04/14/20 18:05 Patient seen on 04/14/19 Review of Systems Review of Systems: Narrative: Unable to obtain. Exam Narrative: Exam Narrative: Patient on ventilator support, however extubated later in the day. Const: General: comfortable Nutritional Appearance: average body habitus HENMT: Head: normal to inspection and normocephalic Neck: Neck: no lymphadenopathy and supple Resp: Effort & Inspection: other (On ventilator support at the time of visit.) Cardio: Rate: tachycardic GI: Inspection: normal to inspection Neuro: General: other (Under sedation.) Objective Data Vital Signs Vital Signs: Vital Signs - 24 hr 04/12/20 18:12 04/12/20 18:13 04/12/20 20:00 Temperature Pulse Rate 49 L 51 L 51 L Respiratory Rate 14 14 15 Blood Pressure 112/42 L Pulse Oximetry 99 04/12/20 20:12 04/12/20 21:00 04/12/20 21:23 Temperature Pulse Rate 48 L 44 L 49 L Respiratory Rate 14 Blood Pressure Pulse Oximetry 100 04/12/20 21:30 04/12/20 22:00 04/12/20 23:21 Temperature 94.5 F L 96.5 F L Pulse Rate 52 L 52 L 53 L Respiratory Rate 17 14 14 Blood Pressure 116/41 L 120/40 L Pulse Oximetry 99 99 99 04/12/20 23:30 04/13/20 00:00 04/13/20 01:25 Temperature 98.1 F Pulse Rate 53 L 52 L 63 Respiratory Rate 14 16 Blood Pressure 121/41 L Pulse Oximetry 99 97 04/13/20 02:00 04/13/20 02:08 04/13/20 03:47 Temperature 98.5 F Pulse Rate 57 L 61 61 Respiratory Rate 15 15 Blood Pressure 138/44 L Pulse Oximetry 98 99 99 04/13/20 04:00 04/13/20 05:10 04/13/20 05:53 Temperature 98.7 F Pulse Rate 65 74 66 Respiratory Rate 16 16 Blood Pressure 139/44 L Pulse Oximetry 99 97
[2020-04-13] MEDS: HEPARIN SODIUM 5,000 UNITS/ML VIAL 5000 UNITS SUB-Q (21:15)
[2020-04-13 23:24] LABS: Glucose Point of Care 142 (65-105)
[2020-04-14] VITALS (25 sets, daily range): BP systolic 144–166; BP diastolic 42–57; PULSE 60–85; RESP 13–71; TEMP 36.6–37.4; O2SAT 79–100
[2020-04-14 04:34] LABS: Alveolar/Arterial O2 Gradient 81.8 mmHg; Base Excess ABG -2.4 mEq/l (+/-2.0); Carboxyhemoglobin 0.2 % THb (0-2.0); Fractional Inspired Oxygen 30 %; HCO3 ABG 21.9 mEq/l (22.0-26.0); Methemoglobin ABG 0.4 %THb (0-1.5); Oxygen Content ABG 12.7 %vol (16.0-22.0); Oxyhemoglobin 95.7 % THb (90.0-100.0); PCO2 ABG 35.7 mmHg (35.0-45.0); PO2 ABG 90.2 mmHg (80.0-100.0); PO2 FiO2 Ratio Arterial Blood 3.01 %; Reduced Hemoglobin 3.7 %THb (0-5.0); Total Hemoglobin 9.3 g/dL (12.0-18.0); pH ABG 7.406 (7.350-7.450)
[2020-04-14 04:39] LABS: Device VENTILATOR; Modified Allen's Test Pass; Site Drawn RIGHT RADIAL
[2020-04-14 04:40] LABS: Arterial Blood Gas PEEP 8 cmH2O; Arterial Blood Gas Tidal Volume 400 ml; Arterial Blood Gas Vent Mode CMV; Arterial Blood Gas Ventilator rate 14 /MIN
[2020-04-14 04:53] LABS: Hematocrit 22.7 % (37.0-47.0); Hemoglobin 7.4 g/dL (12.0-15.0); Mean Corpuscular HGB Conc 32.6 g/dl (32-36); Mean Corpuscular Hemoglobin 30.3 pg (26-34); Mean Platelet Volume 9.4 fl (7.4-10.4); Platelet Count Result 136 k/mm3 (150-375); Red Blood Count 2.44 M/mm3 (4.2-5.4); Red Cell Distribution Width 13.2 % (11.5-14.5); White Blood Count 10.3 K/mm3 (4.5-10.0)
[2020-04-14 05:08] LABS: Alanine Aminotransferase 10 U/L (4-35); Albumin Level 3.4 g/dL (3.5-5.1); Alkaline Phosphatase 32 U/L (38-126); Anion Gap 11 mmol/L (8-16); Aspartate Amino Transferase 24 U/L (14-36); Bilirubin,Total 0.4 mg/dL (0.2-1.3); Blood Urea Nitrogen 60 mg/dL (7-17); Calcium 8.6 mg/dL (8.4-10.2); Carbon Dioxide 24 mmol/L (22-30); Chloride 102 mmol/L (98-107); Estimated CRCL calculation 11 ml/min; Estimated Glomerular Filt Rate 9; Glucose 125 mg/dL (65-105); Magnesium 2.2 mg/dL (1.6-2.3); Phosphorus 6.2 mg/dL (2.5-4.5); Potassium 3.5 mmol/L (3.4-5.0); Sodium 137 mmol/L (137-145)
[2020-04-14] MEDS: ALBUMIN HUMAN 25% 12.5 GM/50ML 50 ML IVPB ×3 (05:49→18:29)
[2020-04-14] MEDS: LEVOTHYROXINE SODIUM 75 MCG TABLET PO (05:50)
[2020-04-14] MEDS: HEPARIN SODIUM 5,000 UNITS/ML VIAL 5000 UNITS SUB-Q ×2 (05:50→21:00)
[2020-04-14] MEDS: METOCLOPRAMIDE HCL INJ 10 MG/2 ML VIAL 5 MG IV PUSH ×3 (05:50→18:29)
[2020-04-14] MEDS: PANTOPRAZOLE SODIUM IV 40 MG VIAL IV PUSH ×2 (08:00→20:03)
[2020-04-14] MEDS: carvediloL 6.25 MG TABLET PO (08:00)
[2020-04-14] MEDS: metOLazone 5 MG TABLET PO (08:00)
[2020-04-14] MEDS: ROSUVASTATIN 10 MG TABLET 40 MG PO (08:02)
[2020-04-14 08:23] LABS: Glucose Point of Care 126 (65-105)
[2020-04-14 10:15] LABS: Folic Acid > 20.0 ng/mL (2.76->20); Vitamin B12 > 1000.0 pg/mL (239-931)
[2020-04-14 10:42] LABS: Iron 15 ug/dL (37-170)
[2020-04-14 10:51] LABS: Percent Iron Saturation 8 % (20-50)
--- NOTE | 2020-04-14 11:17 | PM.PNCARD ---
Progress Note: A&P Assessment and Plan (1) Acute on chronic renal failure: Code(s): N17.9 - Acute kidney failure, unspecified; N18.9 - Chronic kidney disease, unspecified Status: Acute Assessment and Plan: Followed by Nephrology (2) Coronary disease: Code(s): I25.10 - Atherosclerotic heart disease of [place] coronary artery without angina pectoris Status: Acute Assessment and Plan: history of stenting. Continue medical therapy (3) Elevated troponin: Code(s): R77.8 - Other specified abnormalities of plasma proteins Status: Acute Assessment and Plan: troponins are elevated but without significant rise or fall. This could be related to underlying renal failure/heart failure/BP. Cannot completely exclude ACS. Continue aspirin, clopidogrel, beta-antonio (4) Acute on chronic diastolic (congestive) heart failure: Code(s): I50.33 - Acute on chronic diastolic (congestive) heart failure Status: Acute Assessment and Plan: In my opinion, I think this is predominantly related to renal failure and volume overload from said renal failure. She also was markedly hypertensive (5) Hypertension associated with diabetes: Code(s): E11.59 - Type 2 diabetes mellitus with other circulatory complications; I15.2 - Hypertension secondary to endocrine disorders Status: Acute Assessment and Plan: Increase carvedilol to 12.5 mg p.o. b.i.d. Up titrate as able. Subjective Date/time seen: 04/14/20 11:17 Interval history: 75-year-old mid for shortness of breath. Date of service 04/14/2020: She is responsive. Denies chest pain. No shortness of breath Review of Systems Review of Systems: All systems reviewed & are unremarkable except as noted in HPI and below Constitutional: Constitutional: Denies chills, Denies excessive sweating and Denies headache(s) Eyes: Eyes: Denies blurry vision ENT: Denies headache(s), Denies lip swelling, Denies epistaxis and Denies neck pain Cardiovascular: Cardiovascular: Denies chest pain, Reports leg edema and Reports dyspnea Respiratory: Respiratory: Reports dyspnea Gastrointestinal: Gastrointestinal: Denies abdominal pain Genitourinary: Genitourinary: Denies flank pain Musculoskeletal: Musculoskeletal: Denies neck pain Integumentary/Breasts: Skin/Breast: Denies dry skin Neurologic: Denies confusion and Denies headache(s) Psychiatric: Psychiatric: Denies anxiety and Denies confusion Endocrine: Endocrine: Denies excessive sweating Hematologic/Lymphatic: Hematologic/Lymphatic: Denies easy bleeding Allergic/Immunologic: Allergic/Immunologic: Denies lip swelling Exam Narrative: Exam Narrative: Currently intubated and sedated Const: General: comfortable; No confusion Orientation/consciousness: No confusion HENMT: General nose exam: Normal nares present Eyes: Sclera: abnormal sclerae Neck: Neck: no JVD Chest: Other: no chest wall deformities seen Resp: Auscultation: rhonchi and diminished lung sounds Cardio: Rate: regular rate Rhythm: regular rhythm Heart sounds: Murmur heart sound present Urinary Catheter: Urinary Catheter: patent and draining Skin: General skin exam: normal color Neuro: General: No confusion Other: currently intubated but coherent Extrem: General: edema Psych: Other: Appropriate mood Objective Data Vital Signs Vital Signs: Vital Signs - 24 hr 04/13/20 12:00 04/13/20 14:00 04/13/20 14:32 Temperature 37.1 C 36.8 C Pulse Rate 59 L 61 61 Respiratory Rate 17 15 Blood Pressure 140/43 L 138/44 L Pulse Oximetry 99 99 99 04/13/20 16:00 04/13/20 17:20 04/13/20 17:34 Temperature 36.9 C Pulse Rate 63 62 67 Respiratory Rate 20 18 Blood Pressure 149/43 H Pulse Oximetry 100 99 04/13/20 17:35 04/13/20 18:00 04/13/20 20:00 Temperature 37.1 C 37.6 C Pulse Rate 74 65 71 Respiratory Rate 18 16 22 H Blood Pressure 149/44 H 158/63 H
[2020-04-14 11:52] LABS: Glucose Point of Care 164 (65-105)
[2020-04-14] MEDS: ACETAMINOPHEN 325 MG TABLET 650 MG PO (11:54)
--- NOTE | 2020-04-14 12:55 | WPDINTPN ---
Progress Note: A&P Assessment and Plan (1) Acute respiratory failure: Qualifiers: Respiratory failure complication: hypoxia Qualified Code(s): J96.01 - Acute respiratory failure with hypoxia Code(s): J96.00 - Acute respiratory failure, unspecified whether with hypoxia or hypercapnia Status: Acute Assessment and Plan: Acute Respiratory failure secondary to pulmonary edema and congestive heart failure, possible pneumonia as patient has elevated white count and had episode of fever Continue full mechanical ventilation support to prevent hypoxemia/hypercarbia and end organ damage. FiO2 30% and PEEP of 8. On CMV mode of ventilation. Will place patient on spontaneous breathing trial as chest x-ray has improved significantly with diuresis. Continue Rocephin and doxycycline Blood culture negative x2 from 04/12/2020 (2) Acute CHF: Qualifiers: Heart failure type: unspecified Qualified Code(s): I50.9 - Heart failure, unspecified Code(s): I50.9 - Heart failure, unspecified Status: Acute Assessment and Plan: Echocardiogram 04/12/2020 showed EF of 60-65%, grade 1 diastolic dysfunction the basal inferior wall and mid inferior wall hypokinetic. -appreciate cardiology following the patient -CHF likely related to renal failure and volume overload along with hypertensive urgency (3) Acute non-ST elevation myocardial infarction (NSTEMI): Code(s): I21.4 - Non-ST elevation (NSTEMI) myocardial infarction Status: Acute Assessment and Plan: r/o NSTEMI w/ elevated troponin. EKG reviewed and does not show any ST elevation -troponins elevated without significant rise or fall, heparin infusion will be discontinued Continue statin, aspirin, clopidogrel and beta-antonio -cardiology following closely (4) Chronic renal failure, stage 4 (severe): Code(s): N18.4 - Chronic kidney disease, stage 4 (severe) Status: Acute Assessment and Plan: Patient was seen by director of research and development as an outpatient and was considered close to needing dialysis Her creatinine today is 4.60 which in stable. 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 (6) Hyperlipidemia: Qualifiers: Hyperlipidemia type: unspecified Qualified Code(s): E78.5 - Hyperlipidemia, unspecified Code(s): E78.5 - Hyperlipidemia, unspecified Status: Acute Assessment and Plan: Continue statin (7) GERD (gastroesophageal reflux disease): Qualifiers: Esophagitis presence: esophagitis presence not specified Qualified Code(s): K21.9 - Gastro-esophageal reflux disease without esophagitis Code(s): K21.9 - Gastro-esophageal reflux disease without esophagitis Status: Acute Assessment and Plan: Start PPI therapy. (8) Hypothyroidism: Qualifiers: Hypothyroidism type: unspecified Qualified Code(s): E03.9 - Hypothyroidism, unspecified Code(s): E03.9 - Hypothyroidism, unspecified Status: Acute Assessment and Plan: Resume levothyroxine PO. (9) UTI due to Klebsiella species: Code(s): N39.0 - Urinary tract infection, site not specified; B96.89 - Other specified bacterial agents as the cause of diseases classified elsewhere Status: Acute Assessment and Plan: Urine cultures growing Klebsiella, pansensitive. Patient on ceftriaxone (10) Anemia: Code(s): D64.9 - Anemia, unspecified Status: A
--- NOTE | 2020-04-14 13:05 | PCDIET ---
ICU Rounding Note: Patient had normal KUB and is now tolerating Nepro at 35mL/hr goal rate with 30mL water flush every 4 hours. Possible plan for extubation today. Last recorded weight is 91kg which is increased from last review, despite -I/O. Will monitor. Bowel Motility: BM x 1 on 04/12/20. Labs Reviewed: Hgb (7.4), Hct (22.7), Glu (125), BUN (60), Cr (4.60), Alb (3.4), PO4 (6.2) Meds Noted: Albumin, Coreg, Vibramycin, Synthroid, Rocephin, Fentanyl, Heparin, Reglan, Versed, Protonix, Crestor Additional Notes: Left forearm with skin tear. Following daily in ICU rounds. Assessing/reassessing every Sunday/Sunday.
[2020-04-14 13:38] LABS: Alveolar/Arterial O2 Gradient 79.1 mmHg; Base Excess ABG -2.3 mEq/l (+/-2.0); Carboxyhemoglobin 0.2 % THb (0-2.0); Fractional Inspired Oxygen 30 %; HCO3 ABG 22.7 mEq/l (22.0-26.0); Methemoglobin ABG 0.6 %THb (0-1.5); Oxygen Content ABG 10.8 %vol (16.0-22.0); Oxygen Saturation ABG 96.5 % (95.0-100.0); Oxyhemoglobin 94.7 % THb (90.0-100.0); PCO2 ABG 39.9 mmHg (35.0-45.0); PO2 ABG 87.9 mmHg (80.0-100.0); PO2 FiO2 Ratio Arterial Blood 2.93 %; Reduced Hemoglobin 4.5 %THb (0-5.0); pH ABG 7.373 (7.350-7.450)
[2020-04-14 13:41] LABS: Arterial Blood Gas Vent Mode SPONTANEOUS; Device VENTILATOR; Modified Allen's Test Pass; Site Drawn RIGHT RADIAL
[2020-04-14 13:42] LABS: Arterial Blood Gas PEEP 5 cmH2O; Arterial Blood Gas Pressure Support 8 cmH2O
[2020-04-14] MEDS: hydrALAZINE HCL 20 MG/ML VIAL 10 MG IV PUSH (16:17)
[2020-04-14 16:21] LABS: Glucose Point of Care 137 (65-105)
--- NOTE | 2020-04-14 16:21 | PM.PNNEP ---
Progress Note: A&P Assessment and Plan (1) Chronic renal failure, stage 4 (severe): Code(s): N18.4 - Chronic kidney disease, stage 4 (severe) Status: Acute Assessment and Plan: Jing has chronic kidney disease stage 4. This is due to hypertension, diabetes, and vascular disease. Her baseline creatinine is around 4. Her creatinine has stabilized. Her urine output is better. Her chest x-ray is better. I think her heart is working better now as Dr Oropeza pointed out, so the chest x-ray is much better out of proportion to the amount of urine she made. (2) Essential (primary) hypertension: Code(s): I10 - Essential (primary) hypertension Status: Acute Assessment and Plan: Will leave the blood pressure between 120 and 150 if possible to help with her urine output. It should improve with diuresis. (3) Acute on chronic diastolic (congestive) heart failure: Code(s): I50.33 - Acute on chronic diastolic (congestive) heart failure Status: Acute Assessment and Plan: The patient has volume overload on exam and also x-ray. She is getting diuresis with furosemide,albumin and metolazone. (4) Coronary disease: Code(s): I25.10 - Atherosclerotic heart disease of [place] coronary artery without angina pectoris Status: Acute Assessment and Plan: The patient has a positive troponin. Cardiology is on the case. She is on a heparin drip. (5) Anemia due to stage 4 chronic kidney disease: Code(s): N18.4 - Chronic kidney disease, stage 4 (severe); D63.1 - Anemia in chronic kidney disease Status: Acute Assessment and Plan: hemoglobin is 9.8. We will keep an eye on this. It seems to have risen gradually over the last few days. (6) Type 2 diabetes mellitus without complication: Qualifiers: Diabetes mellitus terminal gauger supervisor insulin use: with skilled nursing use Qualified Code(s): E11.9 - Type 2 diabetes mellitus without complications; Z79.4 - terminal gauger supervisor (current) use of insulin Code(s): E11.9 - Type 2 diabetes mellitus without complications Status: Chronic Assessment and Plan: She is on Accu-Cheks and sliding-scale insulin (7) Hypothyroidism: Qualifiers: Hypothyroidism type: unspecified Qualified Code(s): E03.9 - Hypothyroidism, unspecified Code(s): E03.9 - Hypothyroidism, unspecified Status: Acute Assessment and Plan: she is on supplements for this. Subjective Date/time seen: 04/14/20 16:21 Interval history: Patient is sedated. answers questions at times. She is on the ventilator. On no pressors. Review of Systems Review of Systems: ROS unobtainable: Yes unobtainable due to medical condition Exam Narrative: Exam Narrative: WDWN in NAD skin no rash head ncat lungs coarse bilaterally. cor reg no rub Or gallop abd BS+ nontender and soft ext 1+ edema. Objective Data Vital Signs Vital Signs: Vital Signs - 24 hr 04/13/20 17:20 04/13/20 17:34 04/13/20 17:35 Temperature Pulse Rate 62 67 74 Respiratory Rate 18 18 Blood Pressure Pulse Oximetry 99 04/13/20 18:00 04/13/20 20:00 04/13/20 20:25 Temperature 37.1 C 37.6 C Pulse Rate 65 71 76 Respiratory Rate 16 22 H Blood Pressure 149/44 H 158/63 H Pulse Oximetry 99 99 97 04/13/20 20:58 04/13/20 21:00 04/13/20 21:26 Temperature 37.6 C Pulse Rate 72 69 69 Respiratory Rate 17 17 Blood Pressure 139/45 L Pulse Oximetry 99 99 04/13/20 22:00 04/13/20 23:27 04/13/20 23:44 Temperature 37.4 C Pulse Rate 63 64 62 Respiratory Rate 16 17 Blood Pressure 146/45 H Pulse Oximetry 99 99 99 04/14/20 00:00 04/14/20 02:00 04/14/20 03:08 Temperature 36.6 C 36.7 C Pulse Rate 69 62 62 Respiratory Rate 18 18 Blood Pressure 148/47 H 157/44 H Pulse Oximetry 99 100 99 04/14/20 03:23 04/14/20 04:00 04/14/20 04:47 Temperature 36.7 C Pulse Rate 62 60 67 Respiratory
--- NOTE | 2020-04-14 16:46 | PC.NURSE ---
Patient extubated @ 1350 with this RN present and RT at bedside. 3L of oxygen applied per nasal canula. Oxygen saturation holding at 95%, Head of bed >45 degrees, oropharyngeal suctioning performed as patient is unable to appropriately clear secretions. Will frequently reassess suctioning needs. Turn cough and reposition, as well as CPT performed regularly to help mobilize secretions.
--- NOTE | 2020-04-14 16:58 | WPDGICN ---
Assessment and Plan Assessment and plan (1) Acute on chronic anemia: Code(s): D64.9 - Anemia, unspecified Status: Acute Assessment and Plan: she has a known history of chronic normocytic anemia, actually she saw hematology last month as outpatient and her hb on january 2020 was 7.7. Probably anemia is multifactorial in this lady with chronic renal failure and other medical problems. Continue medical management by hematology. EGD and colonoscopy 2016 negative, no need to repeat scopes for now unless overt gib IV heparin was discontinued ok to use aspirin (2) Acute on chronic diastolic (congestive) heart failure: Code(s): I50.33 - Acute on chronic diastolic (congestive) heart failure Status: Acute Assessment and Plan: extubated, cardiology on board on diuretics (3) Acute respiratory failure: Qualifiers: Respiratory failure complication: hypoxia Qualified Code(s): J96.01 - Acute respiratory failure with hypoxia Code(s): J96.00 - Acute respiratory failure, unspecified whether with hypoxia or hypercapnia Status: Acute Assessment and Plan: improved, multifactorial from renal failure and chf (4) Acute on chronic renal failure: Code(s): N17.9 - Acute kidney failure, unspecified; N18.9 - Chronic kidney disease, unspecified Status: Acute (5) Acute CHF: Qualifiers: Heart failure type: unspecified Qualified Code(s): I50.9 - Heart failure, unspecified Code(s): I50.9 - Heart failure, unspecified Status: Acute (6) Acute non-ST elevation myocardial infarction (NSTEMI): Code(s): I21.4 - Non-ST elevation (NSTEMI) myocardial infarction Status: Acute GI Consult Note Consult date/time: 04/14/20 16:58 Reason for consult: acute on chronic anemia HPI: Jing Lawson is a 75 year old female with multiple medical problems including CAD with previous stent placed, CHF, HTN, CKD stage IV, chronic anemia for which she has seen hematology and work up included negative EGD and colonoscopy 2016. She came to ER with worsening shortness of breath with leg edema and SHERIDAN. Chest xray showed cardiomegaly and bilateral pulmonary edema. Also had elevated troponin 1.270. The patient was treated with diuresis, also anticoagulated with IV heparin and intubated, admitted to ICU. Hb on admission 9 and repeat 7.4 but her hb has been this low last month when she saw wire bender hand who was planning to start on procrit. She was just extubated today and awake. RN reports no signs of any bleeding, no nausea or vomiting. Review of Systems Constitutional: Constitutional: Reports fatigue and Reports lethargy Eyes: Eyes: Reports no additional eye complaints ENT: Reports system reviewed and no additional complaints, except as documented Cardiovascular: Cardiovascular: Reports leg edema Respiratory: Respiratory: Reports chest congestion and Reports dyspnea on exertion Gastrointestinal: Gastrointestinal: Denies nausea, Denies vomiting and Denies hematemesis Musculoskeletal: Musculoskeletal: Denies neck pain Integumentary/Breasts: Skin/Breast: Denies pruritus Neurologic: Denies headache(s) Psychiatric: Psychiatric: Reports anxiety PMFSH Past Medical History Medical History Endocarditis Hyperthyroidism Other heart block Stage 3 chronic kidney disease Surgical History Surgical History History of coronary artery stent placement Family History Family History Sibling Family history of Alzheimer's disease Grandparent Carcinoma of colon Father Family history of heart disease in male family member before age 55 Mother Family history of heart disease in male family member before age 55 Other Cerebrovascular accident Diabetes mellitus Hypertension Social History Social Histo
[2020-04-14 20:16] LABS: Glucose Point of Care 147 (65-105)
[2020-04-14] MEDS: carvediloL 12.5 MG TABLET PO (21:00)
[2020-04-15] VITALS (27 sets, daily range): BP systolic 129–170; BP diastolic 41–131; PULSE 62–86; RESP 13–22; TEMP 36.9–37.2; O2SAT 88–100
[2020-04-15 00:08] LABS: Glucose Point of Care 163 (65-105)
[2020-04-15] MEDS: ALBUMIN HUMAN 25% 12.5 GM/50ML 50 ML IVPB ×5 (00:08→23:05)
[2020-04-15] MEDS: METOCLOPRAMIDE HCL INJ 10 MG/2 ML VIAL 5 MG IV PUSH ×3 (00:09→11:44)
[2020-04-15 04:33] LABS: Hematocrit 23.2 % (37.0-47.0); Hemoglobin 7.6 g/dL (12.0-15.0); Mean Corpuscular HGB Conc 32.8 g/dl (32-36); Mean Corpuscular Hemoglobin 30.4 pg (26-34); Mean Corpuscular Volume 92.8 fl (80-100); Mean Platelet Volume 9.7 fl (7.4-10.4); Platelet Count Result 157 k/mm3 (150-375); Red Cell Distribution Width 13.1 % (11.5-14.5); White Blood Count 12.7 K/mm3 (4.5-10.0)
[2020-04-15 04:48] LABS: Alanine Aminotransferase 10 U/L (4-35); Albumin Level 3.9 g/dL (3.5-5.1); Alkaline Phosphatase 31 U/L (38-126); Anion Gap 15 mmol/L (8-16); Aspartate Amino Transferase 27 U/L (14-36); Bilirubin,Total 0.5 mg/dL (0.2-1.3); Blood Urea Nitrogen 70 mg/dL (7-17); Carbon Dioxide 22 mmol/L (22-30); Chloride 101 mmol/L (98-107); Estimated CRCL calculation 11 ml/min; Estimated Glomerular Filt Rate 9; Glucose 137 mg/dL (65-105); Magnesium 2.2 mg/dL (1.6-2.3); Phosphorus 6.7 mg/dL (2.5-4.5); Potassium 3.8 mmol/L (3.4-5.0); Sodium 138 mmol/L (137-145)
[2020-04-15] MEDS: HEPARIN SODIUM 5,000 UNITS/ML VIAL 5000 UNITS SUB-Q ×3 (05:31→21:46)
[2020-04-15 05:32] LABS: Alveolar/Arterial O2 Gradient 488.8 mmHg; Base Excess ABG -5.5 mEq/l (+/-2.0); Carboxyhemoglobin 0.2 % THb (0-2.0); Fractional Inspired Oxygen 90 %; HCO3 ABG 19.9 mEq/l (22.0-26.0); Methemoglobin ABG 0.5 %THb (0-1.5); Oxygen Content ABG 12.3 %vol (16.0-22.0); Oxyhemoglobin 96.4 % THb (90.0-100.0); PCO2 ABG 37.9 mmHg (35.0-45.0); PO2 ABG 114.1 mmHg (80.0-100.0); PO2 FiO2 Ratio Arterial Blood 1.27 %; Reduced Hemoglobin 2.9 %THb (0-5.0); Total Hemoglobin 8.9 g/dL (12.0-18.0); pH ABG 7.337 (7.350-7.450)
[2020-04-15 05:33] LABS: Modified Allen's Test Pass; Site Drawn RIGHT RADIAL
[2020-04-15 05:34] LABS: Device HIGH FLOW NASAL CANN
[2020-04-15] MEDS: hydrALAZINE HCL 20 MG/ML VIAL 10 MG IV PUSH (06:25)
[2020-04-15] MEDS: ROSUVASTATIN 10 MG TABLET 40 MG PO (08:21)
[2020-04-15] MEDS: PANTOPRAZOLE SODIUM IV 40 MG VIAL IV PUSH ×2 (08:21→20:11)
[2020-04-15] MEDS: metOLazone 5 MG TABLET PO (08:21)
[2020-04-15] MEDS: carvediloL 12.5 MG TABLET PO ×2 (08:21→20:12)
[2020-04-15] MEDS: ASPIRIN 325 MG TABLET PO (08:22)
--- NOTE | 2020-04-15 09:57 | WPDINTPN ---
Progress Note: A&P Assessment and Plan (1) Acute respiratory failure: Qualifiers: Respiratory failure complication: hypoxia Qualified Code(s): J96.01 - Acute respiratory failure with hypoxia Code(s): J96.00 - Acute respiratory failure, unspecified whether with hypoxia or hypercapnia Status: Acute Assessment and Plan: Acute Respiratory failure secondary to pulmonary edema and congestive heart failure, possible pneumonia as patient has elevated white count and had episode of fever Extubated successfully on 04/14/2020. Patient did well through the day and evening, overnight she started having desaturations, was placed on 15 L non-rebreather with adequate O2 sats. Patient has a weak cough Continue Rocephin and doxycycline Blood culture negative x2 from 04/12/2020 -will have PT OT evaluate the patient, the chair and add incentive spirometry (2) Acute CHF: Qualifiers: Heart failure type: unspecified Qualified Code(s): I50.9 - Heart failure, unspecified Code(s): I50.9 - Heart failure, unspecified Status: Acute Assessment and Plan: Echocardiogram 04/12/2020 showed EF of 60-65%, grade 1 diastolic dysfunction the basal inferior wall and mid inferior wall hypokinetic. -appreciate cardiology following the patient -CHF likely related to renal failure and volume overload along with hypertensive urgency (3) Acute non-ST elevation myocardial infarction (NSTEMI): Code(s): I21.4 - Non-ST elevation (NSTEMI) myocardial infarction Status: Acute Assessment and Plan: r/o NSTEMI w/ elevated troponin. EKG reviewed and does not show any ST elevation -troponins elevated without significant rise or fall, heparin infusion will be discontinued Continue statin, aspirin, clopidogrel and beta-antonio -cardiology following closely (4) Chronic renal failure, stage 4 (severe): Code(s): N18.4 - Chronic kidney disease, stage 4 (severe) Status: Acute Assessment and Plan: Patient was seen by hr manager as an outpatient and was considered close to needing dialysis Her creatinine today is 4.60 which in stable. Discussed with Nephrology, will continue metolazone albumin She may need dialysis for volume control if does not respond to diuretic therapy (5) Type 2 diabetes mellitus without complication: Qualifiers: Diabetes mellitus long-term insulin use: with long-term use Qualified Code(s): E11.9 - Type 2 diabetes mellitus without complications; Z79.4 - prison (current) use of insulin Code(s): E11.9 - Type 2 diabetes mellitus without complications Status: Chronic Assessment and Plan: Accuchecks, SSI Coverage, hypoglycemic protocol. (6) Hyperlipidemia: Qualifiers: Hyperlipidemia type: unspecified Qualified Code(s): E78.5 - Hyperlipidemia, unspecified Code(s): E78.5 - Hyperlipidemia, unspecified Status: Acute Assessment and Plan: Continue statin (7) GERD (gastroesophageal reflux disease): Qualifiers: Esophagitis presence: esophagitis presence not specified Qualified Code(s): K21.9 - Gastro-esophageal reflux disease without esophagitis Code(s): K21.9 - Gastro-esophageal reflux disease without esophagitis Status: Acute Assessment and Plan: Start PPI therapy. (8) Hypothyroidism: Qualifiers: Hypothyroidism type: unspecified Qualified Code(s): E03.9 - Hypothyroidism, unspecified Code(s): E03.9 - Hypothyroidism, unspecified Status: Acute Assessment and Plan: Resume levothyroxine PO. (9) UTI due to Klebsiella species: Code(s): N39.0 - Urinary tract infection, site not specified; B96.89 - Other specified bacterial agents as the cause of diseases classified elsewhere Status: Acute Assessment and Plan: Urine cultures growing Klebsiella, pansensitive. Patient on ceftriaxone (10) Anemia: Code(s): D64.9 - Anemia,
--- NOTE | 2020-04-15 10:41 | PM.PNCARD ---
Progress Note: A&P Assessment and Plan (1) Acute on chronic renal failure: Code(s): N17.9 - Acute kidney failure, unspecified; N18.9 - Chronic kidney disease, unspecified Status: Acute Assessment and Plan: Followed by Nephrology (2) Coronary disease: Code(s): I25.10 - Atherosclerotic heart disease of [place] coronary artery without angina pectoris Status: Acute Assessment and Plan: history of stenting. Continue medical therapy it seems that she takes aspirin at home and Plavix. I see on aspirin. Add Plavix 75 mg daily. (3) Elevated troponin: Code(s): R77.8 - Other specified abnormalities of plasma proteins Status: Acute Assessment and Plan: troponins are elevated but without significant rise or fall. This could be related to underlying renal failure/heart failure/BP. Cannot completely exclude ACS. Continue aspirin, clopidogrel, beta-antonio (4) Acute on chronic diastolic (congestive) heart failure: Code(s): I50.33 - Acute on chronic diastolic (congestive) heart failure Status: Acute Assessment and Plan: In my opinion, I think this is predominantly related to renal failure and volume overload from said renal failure. She also was markedly hypertensive . Nephrology would like to keep blood pressure between 120 and 150. She has and that range. Chest x-ray reviewed myself this morning shows worsening congestion. She is currently getting metolazone. I think she will need some IV diuretics however I would defer that to Nephrology because they are following. (5) Hypertension associated with diabetes: Code(s): E11.59 - Type 2 diabetes mellitus with other circulatory complications; I15.2 - Hypertension secondary to endocrine disorders Status: Acute Assessment and Plan: Continue Coreg 12.5 mg b.i.d. Subjective Date/time seen: 04/15/20 10:41 Interval history: Reason for consult: Acute respiratory failure, acute CHF, acute on chronic kidney disease Date of service 04/15/2020: Patient was extubated on 04/14/2020, she did well she still requires oxygen mask. She is -1500 cc Review of Systems Review of Systems: All systems reviewed & are unremarkable except as noted in HPI and below Constitutional: Constitutional: Denies chills, Denies excessive sweating and Denies headache(s) Eyes: Eyes: Denies blurry vision ENT: Denies headache(s), Denies lip swelling, Denies epistaxis and Denies neck pain Cardiovascular: Cardiovascular: Denies chest pain, Reports leg edema and Reports dyspnea Respiratory: Respiratory: Reports dyspnea Gastrointestinal: Gastrointestinal: Denies abdominal pain Genitourinary: Genitourinary: Denies flank pain Musculoskeletal: Musculoskeletal: Denies neck pain Integumentary/Breasts: Skin/Breast: Denies dry skin Neurologic: Denies confusion and Denies headache(s) Psychiatric: Psychiatric: Denies anxiety and Denies confusion Endocrine: Endocrine: Denies excessive sweating Hematologic/Lymphatic: Hematologic/Lymphatic: Denies easy bleeding Allergic/Immunologic: Allergic/Immunologic: Denies lip swelling Exam Const: General: comfortable; No confusion Orientation/consciousness: No confusion HENMT: General nose exam: Normal nares present Eyes: Sclera: abnormal sclerae Neck: Neck: no JVD Chest: Other: no chest wall deformities seen Resp: Auscultation: rhonchi and diminished lung sounds Cardio: Rate: regular rate Rhythm: regular rhythm Heart sounds: Murmur heart sound present Urinary Catheter: Urinary Catheter: patent and draining Skin: General skin exam: normal color Neuro: General: No confusion Other: No focal deficit. No headaches. Extrem: General: edema Psych: Other: Appropriate mood Objective Data Vital Signs Vital Signs: Vital Signs - 24 hr 04/14/20 11:00 04/14/20 11:54 04/14/20 12:00 Temperature 37.4 C 37.2 C Pulse Rate 74 70 Respiratory Rate 23 H B
--- NOTE | 2020-04-15 10:56 | PCDIET ---
ICU Rounding Note: Patient extubated, but remains groggy, per nursing. Tube feedings discontinued with extubation. MD plans to advance diet once appropriate. Last recorded weight is 88kg which is decreased from last review. -I/O. Bowel Motility: Last documented BM on 04/12/20 x 1. Labs Reviewed: Hgb (7.6), Hct (23.2), Glu (137), BUN (70), PO4 (6.7) Meds Noted: Albumin, Coreg, Rocephin, Protonix, Doxycycline, Retacrit, Heparin, Crestor, Novolog, Reglan, Versed Additional Notes: No documented pressure ulcers. Following daily in ICU rounds. Assessing/reassessing every Sunday/Sunday.
[2020-04-15 11:41] LABS: Glucose Point of Care 160 (65-105)
[2020-04-15] MEDS: CLOPIDOGREL BISULFATE 75 MG TABLET PO (11:44)
--- NOTE | 2020-04-15 12:29 | PM.PNNEP ---
Progress Note: A&P Assessment and Plan (1) Chronic renal failure, stage 4 (severe): Code(s): N18.4 - Chronic kidney disease, stage 4 (severe) Status: Acute Assessment and Plan: Jing has chronic kidney disease stage 4. This is due to hypertension, diabetes, and vascular disease. Her baseline creatinine is around 4. Her creatinine has stabilized at around 4.6. Her urine output is Doing pretty well with furosemide, metolazone, and albumin. Her chest x-ray is better. She is having problems with oxygenation. Some of this is strength, possible secretion issues, and may be uremia? Long discussion with Dr. Oropeza. He is going to reintubate and we can start dialysis soon. (2) Essential (primary) hypertension: Code(s): I10 - Essential (primary) hypertension Status: Acute Assessment and Plan: Systolic running between 130 and 170. (3) Acute on chronic diastolic (congestive) heart failure: Code(s): I50.33 - Acute on chronic diastolic (congestive) heart failure Status: Acute Assessment and Plan: Volume issues seem improved. Partly because of negative intake / output but also because her cardiac function has improved. (4) Coronary disease: Code(s): I25.10 - Atherosclerotic heart disease of [place] coronary artery without angina pectoris Status: Acute Assessment and Plan: The patient has a positive troponin. Cardiology is on the case. She is on a heparin drip. (5) Anemia due to stage 4 chronic kidney disease: Code(s): N18.4 - Chronic kidney disease, stage 4 (severe); D63.1 - Anemia in chronic kidney disease Status: Acute Assessment and Plan: hemoglobin is 7.6. Will start Epogen. Check stool guaiacs. (6) Type 2 diabetes mellitus without complication: Qualifiers: Diabetes mellitus long-term insulin use: with intermodal owner operator truck driver use Qualified Code(s): E11.9 - Type 2 diabetes mellitus without complications; Z79.4 - ocean transportation intermediary (current) use of insulin Code(s): E11.9 - Type 2 diabetes mellitus without complications Status: Chronic Assessment and Plan: She is on Accu-Cheks and sliding-scale insulin (7) Hypothyroidism: Qualifiers: Hypothyroidism type: unspecified Qualified Code(s): E03.9 - Hypothyroidism, unspecified Code(s): E03.9 - Hypothyroidism, unspecified Status: Acute Assessment and Plan: she is on supplements for this. Subjective Date/time seen: 04/15/20 12:29 Interval history: Patient is Extubated. She did well yesterday afternoon after extubation but gradually has required more more oxygen. There is some secretion retention as well. She is currently on oxygen mask. She seems to respond some but does not really talk much. She is making urine. Review of Systems Review of Systems: ROS unobtainable: Yes unobtainable due to medical condition Exam Narrative: Exam Narrative: WDWN in NAD skin no rash head ncat lungs coarse bilaterally. cor reg no rub Or gallop abd BS+ nontender and soft ext 1+ edema. Objective Data Vital Signs Vital Signs: Vital Signs - 24 hr 04/14/20 12:54 04/14/20 13:55 04/14/20 14:00 Temperature 37.1 C Pulse Rate 80 77 Respiratory Rate 16 14 Blood Pressure 160/47 H Pulse Oximetry 97 97 04/14/20 16:00 04/14/20 18:00 04/14/20 18:34 Temperature 36.8 C Pulse Rate 70 80 80 Respiratory Rate 16 16 16 Blood Pressure 162/52 H 144/52 H Pulse Oximetry 97 97 04/14/20 20:00 04/14/20 21:00 04/14/20 22:00 Temperature 37.1 C 36.9 C Pulse Rate 85 83 82 Respiratory Rate 16 13 Blood Pressure 158/53 H 160/57 H Pulse Oximetry 97 98 04/15/20 00:00 04/15/20 02:00 04/15/20 04:00 Temperature 37.2 C 37.0 C Pulse Rate 84 80 75 Respiratory Rate 19 14 13 Blood Pressure 154/50 H 152/54 H 148/49 H Pulse Oximetry 95 96 95 04/15/20 05:08 04/15/20 06:00 04/15/20 07:45 Te
--- NOTE | 2020-04-15 12:41 | WPDGIPROGNO ---
Progress Note: A&P Assessment and Plan (1) Acute on chronic anemia: Code(s): D64.9 - Anemia, unspecified Status: Acute Assessment and Plan: no signs of bleeding and she has been this anemic before probably multifactorial no need to proceed with endoscopic at this point, also recently extubated with pulmonary edema will need follow up with hematology [place], call if questions (2) Acute on chronic diastolic (congestive) heart failure: Code(s): I50.33 - Acute on chronic diastolic (congestive) heart failure Status: Acute Assessment and Plan: medical management (3) Acute respiratory failure: Qualifiers: Respiratory failure complication: hypoxia Qualified Code(s): J96.01 - Acute respiratory failure with hypoxia Code(s): J96.00 - Acute respiratory failure, unspecified whether with hypoxia or hypercapnia Status: Acute Assessment and Plan: extubated and better, by finishing supervisor plastic sheets (4) Acute on chronic renal failure: Code(s): N17.9 - Acute kidney failure, unspecified; N18.9 - Chronic kidney disease, unspecified Status: Acute Assessment and Plan: nephrology on board (5) Acute non-ST elevation myocardial infarction (NSTEMI): Code(s): I21.4 - Non-ST elevation (NSTEMI) myocardial infarction Status: Acute (6) Hypertension associated with diabetes: Code(s): E11.59 - Type 2 diabetes mellitus with other circulatory complications; I15.2 - Hypertension secondary to endocrine disorders Status: Acute Subjective Date/time seen: 04/15/20 12:41 Interval history: still weak but looks better today, up in chair. RN denies any overt gib Review of Systems Review of Systems: All systems reviewed & are unremarkable except as noted in HPI and below Exam Const: General: no acute distress and ill appearing chronically Other: awake and alert HENMT: General nose exam: Normal nares present Eyes: Pupils: Equal, round and reactive pupils present Neck: Neck: supple Resp: Auscultation: rhonchi and diminished lung sounds Cardio: Rate: regular rate GI: Inspection: non-distended GI Palp: Yes Soft to palpation and No Tenderness to palpation present (GI) Auscultation: normal bowel sounds Urinary Catheter: Urinary Catheter: patent and draining Skin: General skin exam: no erythema Neuro: Other: no focal deficits Extrem: General: pedal edema Psych: Affect: Anxious affect present Objective Data Vital Signs Vital Signs: Vital Signs - 24 hr 04/14/20 12:54 04/14/20 13:55 04/14/20 14:00 Temperature 98.7 F Pulse Rate 80 77 Respiratory Rate 16 14 Blood Pressure 160/47 H Pulse Oximetry 97 97 04/14/20 16:00 04/14/20 18:00 04/14/20 18:34 Temperature 98.2 F Pulse Rate 70 80 80 Respiratory Rate 16 16 16 Blood Pressure 162/52 H 144/52 H Pulse Oximetry 97 97 04/14/20 20:00 04/14/20 21:00 04/14/20 22:00 Temperature 98.8 F 98.5 F Pulse Rate 85 83 82 Respiratory Rate 16 13 Blood Pressure 158/53 H 160/57 H Pulse Oximetry 97 98 04/15/20 00:00 04/15/20 02:00 04/15/20 04:00 Temperature 98.9 F 98.6 F Pulse Rate 84 80 75 Respiratory Rate 19 14 13 Blood Pressure 154/50 H 152/54 H 148/49 H Pulse Oximetry 95 96 95 04/15/20 05:08 04/15/20 06:00 04/15/20 07:45 Temperature Pulse Rate 80 86 Respiratory Rate 18 18 Blood Pressure 170/48 H Pulse Oximetry 90 93 94 04/15/20 08:00 04/15/20 08:21 04/15/20 09:53 Temperature 98.8 F Pulse Rate 85 84 71 Respiratory Rate 22 H Blood Pressure 142/52 H Pulse Oximetry 95 04/15/20 10:00 04/15/20 10:45 04/15/20 10:47 Temperature Pulse Rate 75 71 Respiratory Rate 14 18 Blood Pressure 147/41 H Pulse Oximetry 100 100 100 04/15/20 10:56 04/15/20 11:00 04/15/20 11:19 Temperature Pulse Rate 70 64 Respiratory Rate 18 14 Blood Pressure Pulse Oximetry 100 99 100 04/15/20 11:40 04/15/20 11:47 04/15/20 12:00
[2020-04-15] MEDS: EPOETIN ALFA-EPBX 10,000 UNITS/ML VIAL 10000 UNITS SUB-Q (13:47)
[2020-04-15 17:42] LABS: Glucose Point of Care 131 (65-105)
--- NOTE | 2020-04-15 18:25 | PM.IMPN ---
Progress Note: A&P Assessment and Plan (1) Acute on chronic anemia: Code(s): D64.9 - Anemia, unspecified Status: Acute Assessment and Plan: Stable Likely to be multifactorial Appreciate GI note. (2) UTI due to Klebsiella species: Code(s): N39.0 - Urinary tract infection, site not specified; B96.89 - Other specified bacterial agents as the cause of diseases classified elsewhere Status: Acute Assessment and Plan: On Ceftriaxone. (3) Acute on chronic diastolic (congestive) heart failure: Code(s): I50.33 - Acute on chronic diastolic (congestive) heart failure Status: Acute Assessment and Plan: Improved Continue to monitor I/O's daily (4) Elevated troponin: Code(s): R77.8 - Other specified abnormalities of plasma proteins Status: Acute Assessment and Plan: Conservative management. Appreciate Cardiology note. (5) Acute respiratory failure: Qualifiers: Respiratory failure complication: hypoxia Qualified Code(s): J96.01 - Acute respiratory failure with hypoxia Code(s): J96.00 - Acute respiratory failure, unspecified whether with hypoxia or hypercapnia Status: Acute Assessment and Plan: S/p extubation On NC Continue to monitor (6) Acute on chronic renal failure: Code(s): N17.9 - Acute kidney failure, unspecified; N18.9 - Chronic kidney disease, unspecified Status: Acute Assessment and Plan: On Metolazone, Albumin and Lasix Nephrology on board (7) Acute non-ST elevation myocardial infarction (NSTEMI): Code(s): I21.4 - Non-ST elevation (NSTEMI) myocardial infarction Status: Acute Assessment and Plan: Conservative management. (8) GERD (gastroesophageal reflux disease): Qualifiers: Esophagitis presence: esophagitis presence not specified Qualified Code(s): K21.9 - Gastro-esophageal reflux disease without esophagitis Code(s): K21.9 - Gastro-esophageal reflux disease without esophagitis Status: Acute Assessment and Plan: PPI Subjective Date/time seen: 04/15/20 18:25 Patient is asleep. S/p extubation. Review of Systems Review of Systems: Narrative: Unable to obtain. Exam Narrative: Exam Narrative: Sitting on chair, asleep. Const: General: comfortable and no acute distress Nutritional Appearance: average body habitus HENMT: Head: normal to inspection and normocephalic Face and sinus: normal facial exam Neck: Neck: no lymphadenopathy, supple and no JVD Resp: Effort & Inspection: normal respiratory effort Auscultation: clear to auscultation bilaterally Cardio: Rate: regular rate Rhythm: regular rhythm GI: GI Palp: Yes Soft to palpation and Yes No hepatosplenomegaly present Skin: Lesions: no lesions Rashes: no rashes Neuro: Cranial nerves: Yes CN's II-XII intact bilaterally and Yes Equal, round and reactive pupils present Motor exam (neuro): 5/5 motor strength present throughout Extrem: General: other (B/L LE edema.) Objective Data Vital Signs Vital Signs: Vital Signs - 24 hr 04/14/20 18:34 04/14/20 20:00 04/14/20 21:00 Temperature 98.8 F Pulse Rate 80 85 83 Respiratory Rate 16 16 Blood Pressure 158/53 H Pulse Oximetry 97 04/14/20 22:00 04/15/20 00:00 04/15/20 02:00 Temperature 98.5 F 98.9 F Pulse Rate 82 84 80 Respiratory Rate 13 19 14 Blood Pressure 160/57 H 154/50 H 152/54 H Pulse Oximetry 98 95 96 04/15/20 04:00 04/15/20 05:08 04/15/20 06:00 Temperature 98.6 F Pulse Rate 75 80 Respiratory Rate 13 18 Blood Pressure 148/49 H 170/48 H Pulse Oximetry 95 90 93 04/15/20 07:45 04/15/20 08:00 04/15/20 08:21 Temperature 98.8 F Pulse Rate 86 85 84 Respiratory Rate 18 22 H Blood Pressure 142/52 H Pulse Oximetry 94 95 04/15/20 09:53 04/15/20 10:00 04/15/20 10:45 Temperature Pulse Rate 71 75 Respiratory Rate 14 Blood Pressure 147/41 H Pulse Oximetry 100 100
[2020-04-15 19:56] LABS: Iron 29 ug/dL (37-170)
[2020-04-15 20:06] LABS: Percent Iron Saturation 17 % (20-50)
[2020-04-15 23:08] LABS: Glucose Point of Care 144 (65-105)
[2020-04-16] VITALS (24 sets, daily range): BP systolic 139–155; BP diastolic 47–65; PULSE 63–83; RESP 14–26; TEMP 36.9–37.4; O2SAT 90–100
[2020-04-16 04:27] LABS: Alveolar/Arterial O2 Gradient 461.3 mmHg; Base Excess ABG -5.1 mEq/l (+/-2.0); Carboxyhemoglobin 0.2 % THb (0-2.0); Fractional Inspired Oxygen 80 %; HCO3 ABG 20.4 mEq/l (22.0-26.0); Methemoglobin ABG 0.3 %THb (0-1.5); Oxygen Content ABG 11.4 %vol (16.0-22.0); Oxygen Saturation ABG 92.2 % (95.0-100.0); Oxyhemoglobin 90.8 % THb (90.0-100.0); PCO2 ABG 39.8 mmHg (35.0-45.0); PO2 ABG 67.3 mmHg (80.0-100.0); PO2 FiO2 Ratio Arterial Blood 0.84 %; Reduced Hemoglobin 8.7 %THb (0-5.0); Total Hemoglobin 8.9 g/dL (12.0-18.0); pH ABG 7.328 (7.350-7.450)
[2020-04-16 04:28] LABS: Device BIPAP; Expiratory Pressure 7 cmH2O; Inspiratory Pressure 14 cmH2O; Modified Allen's Test Pass; Site Drawn RIGHT RADIAL
[2020-04-16 04:48] LABS: Hematocrit 23.2 % (37.0-47.0); Hemoglobin 7.5 g/dL (12.0-15.0); Mean Corpuscular HGB Conc 32.3 g/dl (32-36); Mean Corpuscular Hemoglobin 30.1 pg (26-34); Mean Corpuscular Volume 93.2 fl (80-100); Mean Platelet Volume 9.3 fl (7.4-10.4); Platelet Count Result 154 k/mm3 (150-375); Red Blood Count 2.49 M/mm3 (4.2-5.4); Red Cell Distribution Width 13.2 % (11.5-14.5); White Blood Count 14.4 K/mm3 (4.5-10.0)
[2020-04-16 05:02] LABS: Alanine Aminotransferase 11 U/L (4-35); Alkaline Phosphatase 34 U/L (38-126); Anion Gap 16 mmol/L (8-16); Aspartate Amino Transferase 29 U/L (14-36); Bilirubin,Total 0.6 mg/dL (0.2-1.3); Blood Urea Nitrogen 77 mg/dL (7-17); Calcium 8.8 mg/dL (8.4-10.2); Carbon Dioxide 23 mmol/L (22-30); Chloride 102 mmol/L (98-107); Estimated CRCL calculation 10 ml/min; Estimated Glomerular Filt Rate 8; Glucose 147 mg/dL (65-105); Magnesium 2.3 mg/dL (1.6-2.3); Phosphorus 6.9 mg/dL (2.5-4.5); Potassium 3.3 mmol/L (3.4-5.0); Sodium 141 mmol/L (137-145)
[2020-04-16] MEDS: ALBUMIN HUMAN 25% 12.5 GM/50ML 50 ML IVPB ×3 (05:30→17:24)
[2020-04-16] MEDS: HEPARIN SODIUM 5,000 UNITS/ML VIAL 5000 UNITS SUB-Q ×3 (05:31→21:06)
[2020-04-16] MEDS: LEVOTHYROXINE SODIUM INJ 100 MCG/5 ML VIAL 38 MCG IV PUSH (05:31)
[2020-04-16] MEDS: CLOPIDOGREL BISULFATE 75 MG TABLET PO (08:32)
[2020-04-16] MEDS: ASPIRIN 325 MG TABLET PO (08:32)
[2020-04-16] MEDS: PANTOPRAZOLE SODIUM IV 40 MG VIAL IV PUSH ×2 (08:33→20:09)
[2020-04-16] MEDS: carvediloL 12.5 MG TABLET PO ×2 (08:33→20:09)
[2020-04-16] MEDS: metOLazone 5 MG TABLET PO (08:33)
[2020-04-16] MEDS: ROSUVASTATIN 10 MG TABLET 40 MG PO (08:34)
--- NOTE | 2020-04-16 09:52 | PM.PNCARD ---
Progress Note: A&P Additional Plan 75-year-old woman with: Picture of volume overload pulmonary congestion and near end-stage renal failure. Despite aggressive diuretics she is not doing well and plans are fairly being made to dialyze her at least temporarily. Echocardiogram did not show any significant left ventricular systolic dysfunction and no significant valvular pathology. Mehran Baires MD [facility] Subjective Date/time seen: Date of service: 04/16/20 09:52 Interval history: Reason for consult: Acute respiratory failure, acute CHF, acute on chronic kidney disease Date of service 04/16/2020: Patient in the ICU on BiPAP. Otherwise largely comfortable not in acute distress. Plans for establishment of temporary dialysis access are noted Exam Narrative: Exam Narrative: Patient in ICU room 5. On BiPAP Const: General: comfortable; No confusion Orientation/consciousness: No confusion HENMT: General nose exam: Normal nares present Eyes: Sclera: abnormal sclerae Neck: Neck: no JVD Chest: Other: no chest wall deformities seen Resp: Auscultation: rhonchi and diminished lung sounds Cardio: Rate: regular rate Rhythm: regular rhythm Heart sounds: Murmur heart sound present Urinary Catheter: Urinary Catheter: patent and draining Skin: General skin exam: normal color Neuro: General: No confusion Other: No focal deficit. No headaches. Extrem: General: edema Psych: Other: Appropriate mood Objective Data Vital Signs Vital Signs: Vital Signs - 24 hr 04/15/20 09:53 04/15/20 10:00 04/15/20 10:45 Temperature Pulse Rate 71 75 Respiratory Rate 14 Blood Pressure 147/41 H Pulse Oximetry 100 100 04/15/20 10:47 04/15/20 10:56 04/15/20 11:00 Temperature Pulse Rate 71 70 Respiratory Rate 18 18 Blood Pressure Pulse Oximetry 100 100 99 04/15/20 11:19 04/15/20 11:40 04/15/20 11:47 Temperature Pulse Rate 64 62 Respiratory Rate 14 16 Blood Pressure Pulse Oximetry 100 99 97 04/15/20 12:00 04/15/20 13:51 04/15/20 14:00 Temperature 36.9 C Pulse Rate 65 77 78 Respiratory Rate 15 14 Blood Pressure 137/45 L 150/131 H Pulse Oximetry 99 95 04/15/20 15:26 04/15/20 16:00 04/15/20 17:51 Temperature 37.0 C Pulse Rate 80 82 76 Respiratory Rate 14 20 16 Blood Pressure 148/66 H Pulse Oximetry 95 88 L 93 04/15/20 18:00 04/15/20 20:00 04/15/20 20:12 Temperature 37.2 C Pulse Rate 76 82 81 Respiratory Rate 20 Blood Pressure 129/63 Pulse Oximetry 92 04/15/20 22:00 04/16/20 00:00 04/16/20 00:52 Temperature 37.4 C Pulse Rate 78 82 82 Respiratory Rate 20 25 H Blood Pressure 154/65 H Pulse Oximetry 90 96 04/16/20 02:00 04/16/20 03:12 04/16/20 03:40 Temperature Pulse Rate 73 81 79 Respiratory Rate 21 H 19 Blood Pressure Pulse Oximetry 96 92 04/16/20 04:00 04/16/20 04:24 04/16/20 06:00 Temperature 36.9 C Pulse Rate 75 75 Respiratory Rate 15 17 Blood Pressure 139/47 L Pulse Oximetry 97 95 04/16/20 07:56 04/16/20 08:00 04/16/20 08:33 Temperature Pulse Rate 82 66 82 Respiratory Rate 24 H 20 Blood Pressure Pulse Oximetry 95 100 Intake/Output Intake/Output: Intake & Output 04/13/20 04/14/20 04/15/20 04/16/20 23:59 23:59 23:59 23:59 Intake Total 1101.7 904.9 750 275 Output Total 1300 2050 1500 600 Balance -198.3 -1145.1 -750 -325 Meds/Results Medications: Active Medications Generic Name Dose Route Start Last Admin Trade Name Diogenes PRN Reason Stop Dose Admin Acetaminophen 650 mg 04/11/20 23:30 04/14/20 11:54 Acetaminophen 325 Mg Tablet PO 650 mg Q4H PRN Administration Mild Pain (1-3) OR FEVER Aspirin 325 mg 04/13/20 08:00 04/16/20 08:32 Aspirin 325 Mg Tablet PO 325 mg DAILY@0800 OSIEL Administration Carvedilol 12.5 mg 04/14/20 21:00 04/16/20 08:33 Carvedilol 12.5 Mg Tablet PO 12.5 mg Q12HR OSIEL Administration Clopidogrel Bisulfate 75 mg
--- NOTE | 2020-04-16 10:07 | PM.PNNEP ---
Progress Note: A&P Assessment and Plan (1) Chronic renal failure, stage 4 (severe): Code(s): N18.4 - Chronic kidney disease, stage 4 (severe) Status: Acute Assessment and Plan: Jing has chronic kidney disease stage 4. This is due to hypertension, diabetes, and vascular disease. Her baseline creatinine is around 4. Her creatinine has risen overnight to 5.3. Is borderline right now. I think her kidneys are in some trouble and may not be able to recover from this. If we try giving fluids I am afraid she will end up back on the ventilator. I talked with patient about initiating dialysis. We discussed the risks benefits alternatives and process and the patient agrees to proceed. (2) Essential (primary) hypertension: Code(s): I10 - Essential (primary) hypertension Status: Acute Assessment and Plan: Systolic running between 130 and 150. (3) Acute on chronic diastolic (congestive) heart failure: Code(s): I50.33 - Acute on chronic diastolic (congestive) heart failure Status: Acute Assessment and Plan: Volume issues seem improved. Partly because of negative intake / output but also because her cardiac function has improved. (4) Coronary disease: Code(s): I25.10 - Atherosclerotic heart disease of [place] coronary artery without angina pectoris Status: Acute Assessment and Plan: The patient has a positive troponin. Cardiology is on the case. She is on a heparin drip. (5) Anemia due to stage 4 chronic kidney disease: Code(s): N18.4 - Chronic kidney disease, stage 4 (severe); D63.1 - Anemia in chronic kidney disease Status: Acute Assessment and Plan: hemoglobin is 7.6. On Epogen. Await stool guaiacs. (6) Type 2 diabetes mellitus without complication: Qualifiers: Diabetes mellitus terminal carman insulin use: with terminal carman use Qualified Code(s): E11.9 - Type 2 diabetes mellitus without complications; Z79.4 - terminal make up operator (current) use of insulin Code(s): E11.9 - Type 2 diabetes mellitus without complications Status: Chronic Assessment and Plan: She is on Accu-Cheks and sliding-scale insulin (7) Hypothyroidism: Qualifiers: Hypothyroidism type: unspecified Qualified Code(s): E03.9 - Hypothyroidism, unspecified Code(s): E03.9 - Hypothyroidism, unspecified Status: Acute Assessment and Plan: she is on supplements for this. Subjective Date/time seen: 04/16/20 10:07 Interval history: Patient is Extubated. Still on BiPAP mask. More alert and interactive. Review of Systems Cardiovascular: Cardiovascular: Reports no additional cardiovascular complaints Respiratory: Respiratory: Reports no additional respiratory complaints Gastrointestinal: Gastrointestinal: Reports no additional gastrointestinal complaints Genitourinary: Genitourinary: Reports no additional female genitourinary complaints Exam Narrative: Exam Narrative: WDWN in NAD skin no rash head ncat lungs coarse bilaterally. cor reg no rub Or gallop abd BS+ nontender and soft ext 1+ edema. Objective Data Vital Signs Vital Signs: Vital Signs - 24 hr 04/15/20 10:45 04/15/20 10:47 04/15/20 10:56 Temperature Pulse Rate 71 70 Respiratory Rate 18 18 Blood Pressure Pulse Oximetry 100 100 100 04/15/20 11:00 04/15/20 11:19 04/15/20 11:40 Temperature Pulse Rate 64 62 Respiratory Rate 14 16 Blood Pressure Pulse Oximetry 99 100 99 04/15/20 11:47 04/15/20 12:00 04/15/20 13:51 Temperature 36.9 C Pulse Rate 65 77 Respiratory Rate 15 Blood Pressure 137/45 L Pulse Oximetry 97 99 04/15/20 14:00 04/15/20 15:26 04/15/20 16:00 Temperature 37.0 C Pulse Rate 78 80 82 Respiratory Rate 14 14 20 Blood Pressure 150/131 H 148/66 H Pulse Oximetry 95 95 88 L 04/15/20 17:51 04/15/20 18:00 04/15/20 20:00 Temperature 37.2 C Pulse Rat
--- NOTE | 2020-04-16 11:21 | PM.PROC ---
Procedure Note - Detailed Date of procedure: 04/16/20 Pre-op diagnosis: CHF, NSTEMI renal failure Post-op diagnosis: same Procedure performed: Placement of Trialysis catheter in right internal jugular vein under ultrasound guidance Description of procedure: The patient was placed in the supine position. The bed was then placed in Trendelenburg with the patient facing to her left to expose the right neck. I then prepped and draped the right neck in normal sterile fashion. A time-out was then done to verify the patient's identity as well as the procedure being performed. I then used the ultrasound to view the right internal jugular vein. Once this was identified, I localized the skin superior to the vein. I then used the 18 gauge needle to gain access into the right internal jugular vein, once again under ultrasound guidance. Once this was noted in good position, I removed the needle just leaving the guidewire in the vein. I then enlarged the incision around the guidewire in the right neck. I then dilated the vein and using the dilators provided in the kit under sterile Seldinger technique. Once the vein was adequately dilated, I was able to easily slide the catheter over the guidewire into the right internal jugular vein. I placed a 20 cm 12 [place] Trialysis catheter into the right internal jugular vein. I then removed the guidewire, now just leaving the catheter in the vein. I was then able to easily draw and flush from all 3 port sites . I then sutured the catheter in place in the right neck. Sterile dressing was then placed. I did not place final heparin flush into the catheter as the patient is going to get emergent dialysis. The patient tolerated the procedure well. Implants: 20 cm 12 [place] Trialysis catheter in right IJ Anesthesia: local Surgeon: Brandy Swanson MD Estimated blood loss (mL): 5 Drains: No Packing: No Pathology: none sent Complications: No immediate complications Condition: stable Disposition: floor Findings: 1st stick right IJ via ultrasound guidance
--- NOTE | 2020-04-16 11:22 | WPDCN ---
Assessment and Plan Assessment and plan (1) Acute on chronic renal failure: Code(s): N17.9 - Acute kidney failure, unspecified; N18.9 - Chronic kidney disease, unspecified Status: Acute Assessment and Plan: will place temporary HD access for emergent HD (2) Acute respiratory failure: Qualifiers: Respiratory failure complication: hypoxia Qualified Code(s): J96.01 - Acute respiratory failure with hypoxia Code(s): J96.00 - Acute respiratory failure, unspecified whether with hypoxia or hypercapnia Status: Acute Assessment and Plan: cont mgmt per home health outreach coordinator, hopefully status will improve c HD (3) Coronary disease: Code(s): I25.10 - Atherosclerotic heart disease of [place] coronary artery without angina pectoris Status: Acute Assessment and Plan: mgmt per cardiology HPI Data of Consult Date/Time: 04/16/20 11:22 Requesting Physician: Juan Ramon Rhodes MD Primary Care Provider: Ayush Alonzo DO Consult Narrative Narrative: Jing Lawson is a 75 year old female c multiple med issues currently admitted to the ICU c acute respiratory failure. Pt c multiple contributing factors including renal failure and CHF. Dr. Gee has asked for temporary HD access given her worsening renal failure and respiratory issues. The pt is currently on BiPap and I was able to obtain consent. Review of Systems Review of Systems: ROS unobtainable: Yes unobtainable due to medical condition PMFSH Past Medical History Medical History Acute on chronic anemia Endocarditis Hyperthyroidism Other heart block Stage 3 chronic kidney disease Surgical History Surgical History History of coronary artery stent placement Family History Family History Sibling Family history of Alzheimer's disease Grandparent Carcinoma of colon Father Family history of heart disease in male family member before age 55 Mother Family history of heart disease in male family member before age 55 Other Cerebrovascular accident Diabetes mellitus Hypertension Social History Social History Smoking packs per day: 1 Smoking cigarettes per day: 20.0 Years smoked: 25 Smoking pack-years: 25.00 Smoking status: Former smoker Tobacco type: cigarettes Second hand tobacco smoke exposure: No Smoking end date: 04/09/92 Alcohol intake: never Substance use: never Substance use type: does not use Spiritual care concerns: No Meds Home Medications and Allergies Home Medications Medication Instructions Recorded Confirmed Type aspirin 81 mg tablet,delayed 81 mg PO DAILY 02/21/19 04/07/20 History release cholecalciferol (vitamin D3) 50 2,000 unit PO DAILY 02/21/19 04/07/20 History mcg (2,000 unit) tablet multivit with 1 tablet PO DAILY 06/25/19 04/07/20 History hhemkixk-rrlj-TW-lutein 8 mg iron-400 mcg-300 mcg tablet omega-3 fatty acids 1,000 mg 1,000 mg PO BID 06/25/19 04/07/20 History capsule pen needle, diabetic 32 gauge x #100 each 06/25/19 04/07/20 History 1/6 rosuvastatin 40 mg tablet 40 mg PO DAILY 06/25/19 04/07/20 History amlodipine 10 mg tablet 10 mg PO DAILY #90 tablet 08/26/19 04/07/20 Rx carvedilol 12.5 mg tablet 12.5 mg PO Q12H 08/26/19 04/07/20 History guanfacine 1 mg tablet 1 mg PO DAILY 08/26/19 04/07/20 History isosorbide mononitrate 30 mg 60 mg PO DAILY #180 tablet 11/14/19 04/07/20 Rx tablet,extended release 24 hr furosemide 80 mg tablet 80 mg PO QAM #45 tablet 12/22/19 04/07/20 Rx insulin detemir U-100 100 unit/mL See Rx Instructions SUB-Q .COMPLEX 01/15/20 04/07/20 Rx (3 mL) subcutaneous pen #15 ml blood sugar diagnostic #300 each 02/12/20 04/07/20 Rx hydralazine 25 mg tablet 75 mg PO TID #270 tablet 02/12/2004/07
--- NOTE | 2020-04-16 12:08 | PCDIET ---
Nutrition Follow-Up Complete: Nutrition Diagnosis: Inadequate oral intake related to oral intubation as evidenced by NPO status. Nutrition Goal: Patient to meet estimated nutritional needs. Goal in progress. Patient currently on bipap, but is more alert on clear liquid diet. Recommend advancing to full liquid, as tolerated, to allow for more nutrient intake. Once diet further advanced, would consider Nepro (425kcal, 19g protein) to supplement intakes. Patient would also likely benefit from use of phosphorus binder with meals/supplements. Last recorded weight is 85.8 kg which is decreased from last review. -I/O. Bowel Motility: Last documented BM on 04/12/20 x 1. Labs Reviewed: Hgb (7.5), Hct (23.2), Glu (147), BUN (77), Cr (5.3), K (3.3), PO4 (6.9) Meds Noted: Albumin, Coreg, Rocephin, Doxycycline, Retacrit, Heparin, Synthroid, Versed, Protonix, Crestor Additional Notes: Left arm weeping. No documented pressure sores. Will continue to monitor with same goal. Nutrition Monitoring and Evaluation: Follow up every 3 days. Follow daily in ICU rounds.
[2020-04-16 12:48] LABS: Glucose Point of Care 154 (65-105)
--- NOTE | 2020-04-16 14:36 | PCOTNOTE ---
Attempted to see patient this pm, however nursing advised to let patient rest. Per RN, patient experienced decreased O2 sats while on bipap with physical therapy.
[2020-04-16 16:44] LABS: Glucose Point of Care 132 (65-105)
[2020-04-17] VITALS (35 sets, daily range): BP systolic 107–170; BP diastolic 44–69; PULSE 64–84; RESP 16–24; TEMP 36.3–37.5; O2SAT 88–98
[2020-04-17] MEDS: ALBUMIN HUMAN 25% 12.5 GM/50ML 50 ML IVPB ×5 (00:41→23:47)
[2020-04-17 00:56] LABS: Glucose Point of Care 160 (65-105)
[2020-04-17 05:07] LABS: Alveolar/Arterial O2 Gradient 251.8 mmHg; Base Excess ABG -4.5 mEq/l (+/-2.0); Carboxyhemoglobin 0.6 % THb (0-2.0); Fractional Inspired Oxygen 50 %; HCO3 ABG 19.6 mEq/l (22.0-26.0); Methemoglobin ABG 0.6 %THb (0-1.5); Oxygen Content ABG 10.4 %vol (16.0-22.0); Oxygen Saturation ABG 94.2 % (95.0-100.0); Oxyhemoglobin 91.5 % THb (90.0-100.0); PCO2 ABG 31.8 mmHg (35.0-45.0); PO2 ABG 68.9 mmHg (80.0-100.0); PO2 FiO2 Ratio Arterial Blood 1.38 %; Reduced Hemoglobin 7.3 %THb (0-5.0); pH ABG 7.407 (7.350-7.450)
[2020-04-17 05:09] LABS: Modified Allen's Test Pass; Site Drawn RIGHT BRACHIAL
[2020-04-17 05:10] LABS: Device NON-INVASIVE VENT; Non-Invasive Expiratory Pressure 7 CMH2O; Non-Invasive Inspiratory Pressure 14 CMH2O; Non-Invasive Vent Rate 12 /MIN
[2020-04-17] MEDS: HEPARIN SODIUM 5,000 UNITS/ML VIAL 5000 UNITS SUB-Q ×3 (06:18→22:09)
[2020-04-17] MEDS: LEVOTHYROXINE SODIUM INJ 100 MCG/5 ML VIAL 38 MCG IV PUSH (06:18)
[2020-04-17 06:32] LABS: Glucose Point of Care 132 (65-105)
[2020-04-17 06:38] LABS: Hematocrit 21.1 % (37.0-47.0); Mean Corpuscular HGB Conc 33.2 g/dl (32-36); Mean Corpuscular Hemoglobin 30.7 pg (26-34); Mean Corpuscular Volume 92.5 fl (80-100); Mean Platelet Volume 8.8 fl (7.4-10.4); Platelet Count Result 133 k/mm3 (150-375); Red Blood Count 2.28 M/mm3 (4.2-5.4); Red Cell Distribution Width 13.4 % (11.5-14.5); White Blood Count 13.7 K/mm3 (4.5-10.0)
[2020-04-17 06:55] LABS: Alanine Aminotransferase 10 U/L (4-35); Albumin Level 4.2 g/dL (3.5-5.1); Alkaline Phosphatase 35 U/L (38-126); Anion Gap 19 mmol/L (8-16); Aspartate Amino Transferase 27 U/L (14-36); Bilirubin,Total 0.6 mg/dL (0.2-1.3); Blood Urea Nitrogen 87 mg/dL (7-17); Carbon Dioxide 24 mmol/L (22-30); Chloride 101 mmol/L (98-107); Estimated CRCL calculation 9 ml/min; Estimated Glomerular Filt Rate 7; Glucose 128 mg/dL (65-105); Magnesium 2.5 mg/dL (1.6-2.3); Phosphorus 5.9 mg/dL (2.5-4.5); Potassium 2.9 mmol/L (3.4-5.0); Sodium 144 mmol/L (137-145)
--- NOTE | 2020-04-17 08:55 | PCPTNOTE ---
attempted therapy, pt receiving dialysis. Will attempt therapy in pm.
[2020-04-17] MEDS: EPOETIN ALFA-EPBX 10,000 UNITS/ML VIAL 10000 UNITS IV PUSH (10:23)
--- NOTE | 2020-04-17 10:23 | PM.PNCARD ---
Progress Note: A&P Additional Plan Volume overload primarily this is related to advancing renal disease and patient now on fortunately requires hemodialysis for volume management as she was responding poorly to diuretic management. At this time there are no additional cardiac recommendations to make. Mehran Baires MD [facility] Subjective Date/time seen: Date of service: 04/17/20 10:23 Interval history: Follow-up visit in this 75-year-old female with: Significant volume overload and end-stage renal disease. History of diastolic left ventricular noncompliance Hemodialysis access placed yesterday patient is receiving her 1st dialysis treatment at this moment Exam Narrative: Exam Narrative: Patient is more alert today offers no complaints seems to be comfortable while being dialyzed Const: General: comfortable; No confusion Orientation/consciousness: No confusion HENMT: General nose exam: Normal nares present Eyes: Sclera: abnormal sclerae Neck: Neck: no JVD Chest: Other: no chest wall deformities seen Resp: Auscultation: rhonchi and diminished lung sounds Cardio: Rate: regular rate Rhythm: regular rhythm Heart sounds: Murmur heart sound present Urinary Catheter: Urinary Catheter: patent and draining Skin: General skin exam: normal color Neuro: General: No confusion Other: No focal deficit. No headaches. Extrem: General: edema Psych: Other: Appropriate mood Objective Data Vital Signs Vital Signs: Vital Signs - 24 hr 04/16/20 11:00 04/16/20 12:00 04/16/20 12:05 Temperature 37.2 C Pulse Rate 69 66 67 Respiratory Rate 25 H 20 15 Blood Pressure 152/52 H Pulse Oximetry 100 100 99 04/16/20 14:00 04/16/20 16:00 04/16/20 16:35 Temperature 37.1 C Pulse Rate 70 77 74 Respiratory Rate 20 20 Blood Pressure 141/51 H Pulse Oximetry 100 95 04/16/20 18:00 04/16/20 20:00 04/16/20 20:09 Temperature 37.3 C Pulse Rate 74 76 75 Respiratory Rate 18 Blood Pressure 155/51 H Pulse Oximetry 95 04/16/20 20:22 04/16/20 22:00 04/16/20 23:51 Temperature Pulse Rate 78 68 66 Respiratory Rate 21 H 16 Blood Pressure Pulse Oximetry 93 99 04/17/20 00:00 04/17/20 00:15 04/17/20 02:00 Temperature 37.4 C Pulse Rate 68 67 73 Respiratory Rate 17 18 Blood Pressure 157/52 H Pulse Oximetry 97 98 04/17/20 04:00 04/17/20 04:44 04/17/20 06:00 Temperature 37.3 C Pulse Rate 72 77 73 Respiratory Rate 16 20 Blood Pressure 149/52 H Pulse Oximetry 97 95 04/17/20 08:00 04/17/20 08:17 04/17/20 08:42 Temperature 37.5 C 37.3 C Pulse Rate 82 82 80 Respiratory Rate 18 24 H Blood Pressure 151/57 H 148/56 H 151/57 H Pulse Oximetry 91 88 L 04/17/20 08:45 04/17/20 09:00 04/17/20 09:15 Temperature Pulse Rate 80 79 79 Respiratory Rate Blood Pressure 149/58 H 162/57 H 164/54 H Pulse Oximetry 04/17/20 09:30 04/17/20 09:42 04/17/20 09:45 Temperature Pulse Rate 76 78 80 Respiratory Rate Blood Pressure 141/46 H 156/52 H 154/52 H Pulse Oximetry 04/17/20 10:00 04/17/20 10:15 Temperature Pulse Rate 78 80 Respiratory Rate Blood Pressure 158/57 H 162/69 H Pulse Oximetry Intake/Output Intake/Output: Intake & Output 04/14/20 04/15/20 04/16/20 04/17/20 23:59 23:59 23:59 23:59 Intake Total 904.9 750 575 400 Output Total 2050 1500 1100 625 [facility] -1145.1 -750 -525 -225 Meds/Results Medications: Active Medications Generic Name Dose Route Start Last Admin Trade Name Diogenes PRN Reason Stop Dose Admin Acetaminophen 650 mg 04/11/20 23:30 04/14/20 11:54 Acetaminophen 325 Mg Tablet PO 650 mg Q4H PRN Administration Mild Pain (1-3) OR FEVER Aspirin 325 mg 04/13/20 08:00 04/16/20 08:32 Aspirin 325 Mg Tablet PO 325 mg DAILY@0800 [facility] Administration Carvedilol 12.5 mg 04/14/20 21:00 04/16/20 20:09 Carvedilol 12.5 Mg Tablet PO 12.5 mg Q12HR OSIEL Administration Clopidogrel Bisulfate
[2020-04-17 10:49] LABS: Hepatitis B Surface Antigen Negative (Negative)
[2020-04-17 11:06] LABS: Hepatitis B Surface Anti Res Negative
--- NOTE | 2020-04-17 11:46 | PCPTNOTE ---
attempted to see pt at 11:10,but was still on dialysis. Will attempt therapy on 04/18/20.
[2020-04-17] MEDS: HEPARIN SODIUM 1,000 UNITS/ML VIAL 1000 UNITS IV PUSH (11:52)
--- NOTE | 2020-04-17 11:54 | PM.PNNEP ---
Progress Note: A&P Assessment and Plan (1) Chronic renal failure, stage 4 (severe): Code(s): N18.4 - Chronic kidney disease, stage 4 (severe) Status: Acute Assessment and Plan: Jing has chronic kidney disease stage 4. This is due to hypertension, diabetes, and vascular disease. Her creatinine has continued to rise with her illness. Most likely she is going to end up on dialysis permanently. She is getting dialysis now and will do another stat session on Sunday. (2) Essential (primary) hypertension: Code(s): I10 - Essential (primary) hypertension Status: Acute Assessment and Plan: Systolic running between 130 and 160. Fluid removal will help bring the blood pressure down a little bit. (3) Acute on chronic diastolic (congestive) heart failure: Code(s): I50.33 - Acute on chronic diastolic (congestive) heart failure Status: Acute Assessment and Plan: Dr. Baires is on the case (4) Coronary disease: Code(s): I25.10 - Atherosclerotic heart disease of [place] coronary artery without angina pectoris Status: Acute Assessment and Plan: The patient has a positive troponin. Cardiology is on the case. She is on a heparin drip. (5) Anemia due to stage 4 chronic kidney disease: Code(s): N18.4 - Chronic kidney disease, stage 4 (severe); D63.1 - Anemia in chronic kidney disease Status: Acute Assessment and Plan: hemoglobin is 7.6. On Epogen. Await stool guaiacs. (6) Type 2 diabetes mellitus without complication: Qualifiers: Diabetes mellitus residential insulin use: with oil heaterman use Qualified Code(s): E11.9 - Type 2 diabetes mellitus without complications; Z79.4 - computer terminal operator (current) use of insulin Code(s): E11.9 - Type 2 diabetes mellitus without complications Status: Chronic Assessment and Plan: She is on Accu-Cheks and sliding-scale insulin (7) Hypothyroidism: Qualifiers: Hypothyroidism type: unspecified Qualified Code(s): E03.9 - Hypothyroidism, unspecified Code(s): E03.9 - Hypothyroidism, unspecified Status: Acute Assessment and Plan: she is on supplements for this. Subjective Date/time seen: 04/17/20 11:54 Interval history: Patient is Extubated. Still on BiPAP mask. More alert and interactive. Feels better today. On dialysis and tolerating it well. Some fluid has been removed already and we will remove more as we go. She was seen at 9:15 a.m. Exam Narrative: Exam Narrative: WDWN in NAD skin no rash head ncat lungs coarse bilaterally. cor reg no rub or gallop abd BS+ nontender and soft ext 1+ edema. Objective Data Vital Signs Vital Signs: Vital Signs - 24 hr 04/16/20 12:00 04/16/20 12:05 04/16/20 14:00 Temperature 37.2 C Pulse Rate 66 67 70 Respiratory Rate 20 15 Blood Pressure 152/52 H Pulse Oximetry 100 99 04/16/20 16:00 04/16/20 16:35 04/16/20 18:00 Temperature 37.1 C Pulse Rate 77 74 74 Respiratory Rate 20 20 Blood Pressure 141/51 H Pulse Oximetry 100 95 04/16/20 20:00 04/16/20 20:09 04/16/20 20:22 Temperature 37.3 C Pulse Rate 76 75 78 Respiratory Rate 18 21 H Blood Pressure 155/51 H Pulse Oximetry 95 93 04/16/20 22:00 04/16/20 23:51 04/17/20 00:00 Temperature 37.4 C Pulse Rate 68 66 68 Respiratory Rate 16 17 Blood Pressure 157/52 H Pulse Oximetry 99 97 04/17/20 00:15 04/17/20 02:00 04/17/20 04:00 Temperature 37.3 C Pulse Rate 67 73 72 Respiratory Rate 18 16 Blood Pressure 149/52 H Pulse Oximetry 98 97 04/17/20 04:44 04/17/20 06:00 04/17/20 08:00 Temperature 37.5 C Pulse Rate 77 73 82 Respiratory Rate 20 18 Blood Pressure 151/57 H Pulse Oximetry 95 91 04/17/20 08:17 04/17/20 08:42 04/17/20 08:45 Temperature 37.3 C Pulse Rate 82 80 80 Respiratory Rate 24 H Blood Pressure 148/56 H 151/57 H 149/58 H Pulse Oximetry
[2020-04-17] MEDS: metOLazone 5 MG TABLET PO (12:25)
[2020-04-17] MEDS: carvediloL 12.5 MG TABLET PO ×2 (12:25→20:24)
[2020-04-17] MEDS: ROSUVASTATIN 10 MG TABLET 40 MG PO (12:25)
[2020-04-17] MEDS: PANTOPRAZOLE SODIUM IV 40 MG VIAL IV PUSH ×2 (12:26→20:24)
[2020-04-17] MEDS: ASPIRIN 325 MG TABLET PO (12:26)
[2020-04-17] MEDS: CLOPIDOGREL BISULFATE 75 MG TABLET PO (12:26)
[2020-04-17 12:46] LABS: Glucose Point of Care 166 (65-105)
--- NOTE | 2020-04-17 16:51 | PM.IMPN ---
Progress Note: A&P Assessment and Plan (1) Acute on chronic anemia: Code(s): D64.9 - Anemia, unspecified Status: Acute Assessment and Plan: Likely multifactorial worsened by kidney disease. Transfuse as needed Epoetin oscar (2) UTI due to Klebsiella species: Code(s): N39.0 - Urinary tract infection, site not specified; B96.89 - Other specified bacterial agents as the cause of diseases classified elsewhere Status: Acute Assessment and Plan: On Ceftriaxone. (3) Acute on chronic diastolic (congestive) heart failure: Code(s): I50.33 - Acute on chronic diastolic (congestive) heart failure Status: Acute Assessment and Plan: Undergoing HD Strict I/O's (4) Elevated troponin: Code(s): R77.8 - Other specified abnormalities of plasma proteins Status: Acute Assessment and Plan: On Plavix/Atorvastatin/Carvedilol (5) Chronic renal failure, stage 4 (severe): Code(s): N18.4 - Chronic kidney disease, stage 4 (severe) Status: Acute Assessment and Plan: Nephrology following Continue HD (6) Acute non-ST elevation myocardial infarction (NSTEMI): Code(s): I21.4 - Non-ST elevation (NSTEMI) myocardial infarction Status: Acute Assessment and Plan: Stable Supportive care Medical management (7) Essential (primary) hypertension: Code(s): I10 - Essential (primary) hypertension Status: Acute Assessment and Plan: Higher than goal 130/80 Dialysis as per Nephrology. Subjective Date/time seen: 04/17/20 16:51 States that she is thirsty. Review of Systems Review of Systems: Narrative: Patient states that she is thirsty, wore BiPAP all night. Exam Narrative: Exam Narrative: Lying in bed. Const: General: comfortable, no acute distress, alert, awake, Physically active and tired appearing Nutritional Appearance: average body habitus HENMT: Head: normocephalic Ears: hearing grossly normal bilaterally General nose exam: Normal external nose present Face and sinus: normal facial exam Eyes: General: appearance normal, both eyes and all related structures Pupils: Equal, round and reactive pupils present EOM: EOMs intact bilaterally Neck: Neck: no lymphadenopathy, supple and no JVD Resp: Auscultation: diminished lung sounds Cardio: Rate: regular rate Rhythm: regular rhythm GI: GI Palp: Yes Soft to palpation and Yes No hepatosplenomegaly present Skin: General skin exam: pallor Neuro: General: patient oriented x3 Cranial nerves: Yes CN's II-XII intact bilaterally Cognition (Neuro): normal cognition Speech: normal speech Motor exam (neuro): 5/5 motor strength present throughout Extrem: General: no pedal edema Objective Data Vital Signs Vital Signs: Vital Signs - 24 hr 04/16/20 18:00 04/16/20 20:00 04/16/20 20:09 Temperature 99.1 F Pulse Rate 74 76 75 Respiratory Rate 18 Blood Pressure 155/51 H Pulse Oximetry 95 04/16/20 20:22 04/16/20 22:00 04/16/20 23:51 Temperature Pulse Rate 78 68 66 Respiratory Rate 21 H 16 Blood Pressure Pulse Oximetry 93 99 04/17/20 00:00 04/17/20 00:15 04/17/20 02:00 Temperature 99.3 F Pulse Rate 68 67 73 Respiratory Rate 17 18 Blood Pressure 157/52 H Pulse Oximetry 97 98 04/17/20 04:00 04/17/20 04:44 04/17/20 06:00 Temperature 99.1 F Pulse Rate 72 77 73 Respiratory Rate 16 20 Blood Pressure 149/52 H Pulse Oximetry 97 95 04/17/20 08:00 04/17/20 08:17 04/17/20 08:42 Temperature 99.5 F 99.2 F Pulse Rate 82 82 80 Respiratory Rate 18 24 H Blood Pressure 151/57 H 148/56 H 151/57 H Pulse Oximetry 92 88 L 04/17/20 08:45 04/17/20 09:00 04/17/20 09:15 Temperature Pulse Rate 80 79 79 Respiratory Rate Blood Pressure 149/58 H 162/57 H 164/54 H Pulse Oximetry 04/17/20 09:30 04/17/20 09:42 04/17/20 09:45 Temperature Pulse Rate 76 78 80 Respiratory Rate Blood Pressure 141/46 H 156/52 H 1
[2020-04-17 17:17] LABS: Glucose Point of Care 264 (65-105)
[2020-04-17] MEDS: INSULIN ASPART (*BKC) 100 UNITS/ML SUB-Q (17:17)
[2020-04-18] VITALS (16 sets, daily range): BP systolic 129–156; BP diastolic 42–56; PULSE 62–73; RESP 15–22; TEMP 37.3–37.4; O2SAT 95–100
[2020-04-18 00:08] LABS: Glucose Point of Care 143 (65-105)
[2020-04-18] MEDS: ALBUMIN HUMAN 25% 12.5 GM/50ML 50 ML IVPB ×3 (05:43→17:25)
[2020-04-18] MEDS: HEPARIN SODIUM 5,000 UNITS/ML VIAL 5000 UNITS SUB-Q ×3 (05:45→21:02)
[2020-04-18] MEDS: LEVOTHYROXINE SODIUM INJ 100 MCG/5 ML VIAL 38 MCG IV PUSH (05:47)
[2020-04-18 05:55] LABS: Glucose Point of Care 121 (65-105)
[2020-04-18] MEDS: ROSUVASTATIN 10 MG TABLET 40 MG PO (09:14)
[2020-04-18] MEDS: metOLazone 5 MG TABLET PO (09:14)
[2020-04-18] MEDS: PANTOPRAZOLE SODIUM IV 40 MG VIAL IV PUSH ×2 (09:15→20:41)
[2020-04-18] MEDS: carvediloL 12.5 MG TABLET PO ×2 (09:15→20:42)
[2020-04-18] MEDS: CLOPIDOGREL BISULFATE 75 MG TABLET PO (09:15)
[2020-04-18] MEDS: ASPIRIN 325 MG TABLET PO (09:15)
[2020-04-18 10:56] LABS: Anion Gap 17 mmol/L (8-16); Blood Urea Nitrogen 73 mg/dL (7-17); Calcium 8.2 mg/dL (8.4-10.2); Carbon Dioxide 24 mmol/L (22-30); Chloride 94 mmol/L (98-107); Estimated CRCL calculation 10 ml/min; Estimated Glomerular Filt Rate 8; Glucose 279 mg/dL (65-105); Potassium 2.5 mmol/L (3.4-5.0); Sodium 135 mmol/L (137-145)
--- NOTE | 2020-04-18 11:29 | PM.PNNEP ---
Progress Note: A&P Assessment and Plan (1) Chronic renal failure, stage 4 (severe): Code(s): N18.4 - Chronic kidney disease, stage 4 (severe) Status: Acute Assessment and Plan: Jing has chronic kidney disease stage 4. This is due to hypertension, diabetes, and vascular disease. Most likely she is going to end up on dialysis permanently. she will get another dialysis tomorrow (2) Essential (primary) hypertension: Code(s): I10 - Essential (primary) hypertension Status: Acute Assessment and Plan: Systolic running between 130 and 160. will remove more fluid tomorrow (3) Acute on chronic diastolic (congestive) heart failure: Code(s): I50.33 - Acute on chronic diastolic (congestive) heart failure Status: Acute Assessment and Plan: Dr. Baires is on the case (4) Coronary disease: Code(s): I25.10 - Atherosclerotic heart disease of [place] coronary artery without angina pectoris Status: Acute Assessment and Plan: The patient has a positive troponin. Cardiology is on the case. She is on a heparin drip. (5) Anemia due to stage 4 chronic kidney disease: Code(s): N18.4 - Chronic kidney disease, stage 4 (severe); D63.1 - Anemia in chronic kidney disease Status: Acute Assessment and Plan: hemoglobin is 7.6. On Epogen. Await stool guaiacs. will get more EPO tomorrow. Holding off on iron because of infection. (6) Type 2 diabetes mellitus without complication: Qualifiers: Diabetes mellitus care home insulin use: with care home use Qualified Code(s): E11.9 - Type 2 diabetes mellitus without complications; Z79.4 - senior living (current) use of insulin Code(s): E11.9 - Type 2 diabetes mellitus without complications Status: Chronic Assessment and Plan: She is on Accu-Cheks and sliding-scale insulin (7) Hypothyroidism: Qualifiers: Hypothyroidism type: unspecified Qualified Code(s): E03.9 - Hypothyroidism, unspecified Code(s): E03.9 - Hypothyroidism, unspecified Status: Acute Assessment and Plan: she is on supplements for this. Subjective Date/time seen: 04/18/20 11:29 Interval history: Patient is Feeling a lot better. She is not on her BiPAP although did wear it for slumber last night. on nasal cannula now and is comfortable and interactive. Will do another dialysis tomorrow Review of Systems Cardiovascular: Cardiovascular: Reports no additional cardiovascular complaints Respiratory: Respiratory: Reports no additional respiratory complaints Gastrointestinal: Gastrointestinal: Reports no additional gastrointestinal complaints Genitourinary: Genitourinary: Reports no additional female genitourinary complaints Exam Narrative: Exam Narrative: WDWN in NAD skin no rash head ncat lungs coarse bilaterally. cor reg no rub or gallop abd BS+ nontender and soft ext 1+ edema. Objective Data Vital Signs Vital Signs: Vital Signs - 24 hr 04/17/20 11:30 04/17/20 11:42 04/17/20 11:48 Temperature 37.3 C Pulse Rate 81 80 82 Respiratory Rate 21 H Blood Pressure 133/55 L 150/56 H 159/56 H Pulse Oximetry 95 04/17/20 12:00 04/17/20 12:25 04/17/20 14:00 Temperature 37.3 C Pulse Rate 80 78 78 Respiratory Rate 20 Blood Pressure 170/57 H Pulse Oximetry 96 04/17/20 16:00 04/17/20 18:00 04/17/20 20:00 Temperature 37.2 C 37.2 C Pulse Rate 67 76 70 Respiratory Rate 16 19 Blood Pressure 142/45 H 147/44 H Pulse Oximetry 92 96 04/17/20 20:24 04/17/20 22:00 04/17/20 23:15 Temperature Pulse Rate 72 68 64 Respiratory Rate 17 Blood Pressure Pulse Oximetry 98 04/18/20 00:00 04/18/20 02:00 04/18/20 02:52 Temperature 37.4 C Pulse Rate 65 63 73 Respiratory Rate 18 20 Blood Pressure 156/56 H Pulse Oximetry 97 100 04/18/20 04:00 04/18/20 06:00 04/18/20 08:00 Temperature 37.4
[2020-04-18 12:04] LABS: Glucose Point of Care 281 (65-105)
[2020-04-18] MEDS: INSULIN ASPART (*BKC) 100 UNITS/ML SUB-Q (12:31)
[2020-04-18 13:54] LABS: IFOB Positive Control Positive; Immunochemical Fecal Occult Bl Negative (N)
--- NOTE | 2020-04-18 15:44 | PM.IMPN ---
Progress Note: A&P Assessment and Plan (1) Acute on chronic anemia: Code(s): D64.9 - Anemia, unspecified Status: Acute Assessment and Plan: Currently on Epo Nephrology managing. (2) Acute on chronic diastolic (congestive) heart failure: Code(s): I50.33 - Acute on chronic diastolic (congestive) heart failure Status: Acute Assessment and Plan: Stable Continue to monitor I/O (3) Chronic renal failure, stage 4 (severe): Code(s): N18.4 - Chronic kidney disease, stage 4 (severe) Status: Acute Assessment and Plan: Requiring HD (4) Acute non-ST elevation myocardial infarction (NSTEMI): Code(s): I21.4 - Non-ST elevation (NSTEMI) myocardial infarction Status: Acute Assessment and Plan: Stable. (5) Anemia due to stage 4 chronic kidney disease: Code(s): N18.4 - Chronic kidney disease, stage 4 (severe); D63.1 - Anemia in chronic kidney disease Status: Acute Assessment and Plan: Epo (6) Hx of non-ST elevation myocardial infarction (NSTEMI): Code(s): I25.2 - Old myocardial infarction Status: Acute Assessment and Plan: Stable Subjective Date/time seen: 04/18/20 15:44 States feeling well. Review of Systems Review of Systems: Narrative: No new issues overnight. Cardiovascular: Comments: no chest pain. Respiratory: Comments: used BiPAP last night Exam Narrative: Exam Narrative: In bed NAD Const: General: comfortable, no acute distress, awake and Physically active Nutritional Appearance: average body habitus Orientation/consciousness: patient oriented x3 HENMT: Head: normocephalic and atraumatic Face and sinus: normal facial exam Neck: Neck: no lymphadenopathy, supple and no JVD Resp: Auscultation: rales Cardio: Jugular venous distension: no JVD Rate: regular rate Rhythm: regular rhythm GI: GI Palp: Yes Soft to palpation and Yes No hepatosplenomegaly present Skin: Lesions: no lesions Neuro: General: patient oriented x3 and CN's II-XI intact bilaterally Cranial nerves: Yes CN's II-XII intact bilaterally and Yes Equal, round and reactive pupils present Cognition (Neuro): normal cognition Speech: normal speech Motor exam (neuro): 5/5 motor strength present throughout Extrem: General: no pedal edema Objective Data Vital Signs Vital Signs: Vital Signs - 24 hr 04/17/20 16:00 04/17/20 18:00 04/17/20 20:00 Temperature 99 F 98.9 F Pulse Rate 67 76 70 Respiratory Rate 16 19 Blood Pressure 142/45 H 147/44 H Pulse Oximetry 92 96 04/17/20 20:24 04/17/20 22:00 04/17/20 23:15 Temperature Pulse Rate 72 68 64 Respiratory Rate 17 Blood Pressure Pulse Oximetry 98 04/18/20 00:00 04/18/20 02:00 04/18/20 02:52 Temperature 99.4 F Pulse Rate 65 63 73 Respiratory Rate 18 20 Blood Pressure 156/56 H Pulse Oximetry 97 100 04/18/20 04:00 04/18/20 06:00 04/18/20 08:00 Temperature 99.4 F 99.2 F Pulse Rate 62 72 69 Respiratory Rate 15 17 Blood Pressure 152/44 H 144/44 H Pulse Oximetry 99 95 04/18/20 09:15 04/18/20 10:00 04/18/20 10:18 Temperature Pulse Rate 71 69 Respiratory Rate Blood Pressure Pulse Oximetry 98 04/18/20 12:00 04/18/20 14:00 Temperature 99.4 F Pulse Rate 70 66 Respiratory Rate 22 H Blood Pressure 129/54 L Pulse Oximetry 97 Intake/Output Intake/Output: Intake & Output 04/15/20 04/16/20 04/17/20 04/18/20 23:59 23:59 23:59 23:59 Intake Total 609 939 6136 575 Output Total 0462 5316 2482 Wrbqttf -999 -572 -2765 575 Meds/Results Medications: Active Medications Generic Name Dose Route Start Last Admin Trade Name Freq PRN Reason Stop Dose Admin Acetaminophen 650 mg 04/11/20 23:30 04/14/20 11:54 Acetaminophen 325 Mg Tablet PO 650 mg Q4H PRN Administration Mild Pain (1-3) OR FEVER Aspirin 325 mg 04/13/20 08:00 04/18/20 09:15 Aspirin 325 Mg Tablet PO 325 mg DAILY@0800 [facility]
[2020-04-18 17:25] LABS: Glucose Point of Care 178 (65-105)
[2020-04-19] VITALS (33 sets, daily range): BP systolic 140–172; BP diastolic 44–85; PULSE 62–73; RESP 16–22; TEMP 36–37.4; O2SAT 90–100
[2020-04-19] MEDS: ALBUMIN HUMAN 25% 12.5 GM/50ML 50 ML IVPB ×4 (00:18→23:00)
[2020-04-19 00:26] LABS: Glucose Point of Care 176 (65-105)
[2020-04-19 05:36] LABS: Mean Corpuscular Hemoglobin 29.9 pg (26-34); Mean Corpuscular Volume 90.5 fl (80-100); Mean Platelet Volume 9.4 fl (7.4-10.4); Platelet Count Result 148 k/mm3 (150-375); Red Blood Count 2.21 M/mm3 (4.2-5.4); White Blood Count 12.6 K/mm3 (4.5-10.0)
[2020-04-19 05:38] LABS: Hemoglobin 6.6 g/dL (12.0-15.0)
[2020-04-19 05:55] LABS: Albumin Level 4.1 g/dL (3.5-5.1); Anion Gap 15 mmol/L (8-16); Blood Urea Nitrogen 84 mg/dL (7-17); Calcium 8.4 mg/dL (8.4-10.2); Carbon Dioxide 24 mmol/L (22-30); Chloride 97 mmol/L (98-107); Estimated CRCL calculation 8 ml/min; Estimated Glomerular Filt Rate 6; Glucose 131 mg/dL (65-105); Phosphorus 4.1 mg/dL (2.5-4.5); Potassium 2.6 mmol/L (3.4-5.0); Sodium 136 mmol/L (137-145)
[2020-04-19] MEDS: LEVOTHYROXINE SODIUM INJ 100 MCG/5 ML VIAL 38 MCG IV PUSH (06:50)
[2020-04-19] MEDS: EPOETIN ALFA-EPBX 10,000 UNITS/ML VIAL 10000 UNITS IV PUSH (10:27)
--- NOTE | 2020-04-19 11:04 | PCPTNOTE ---
Attempted to see patient for PT, however patient was receiving dialysis.
--- NOTE | 2020-04-19 12:22 | P.PNNP_ITS ---
Progress Note: A&P Assessment and Plan (1) GIULIANA (acute kidney injury): Code(s): N17.9 - Acute kidney failure, unspecified Status: Acute Assessment and Plan: * decline in kidney function noted with acute illness * initiated on renal replacement therapy/dialysis (04/16/20) * unfortunately, given her advanced CKD at baseline, I suspect the patient is dialysis dependent (ESRD) * HD today and follow trend of labs and UOP * will need tunneled HD catheter on discharge if remains dialysis dependent (2) Chronic renal failure, stage 4 (severe): Code(s): N18.4 - Chronic kidney disease, stage 4 (severe) Status: Chronic Assessment and Plan: * baseline creatinine runs in the 4ish range * due to hypertension, diabetes, and vascular disease (3) Essential (primary) hypertension: Code(s): I10 - Essential (primary) hypertension Status: Acute Assessment and Plan: * reasonable control * follow hemodynamics * fluid removal will likely help maintain BP (4) Acute on chronic diastolic (congestive) heart failure: Code(s): I50.33 - Acute on chronic diastolic (congestive) heart failure Status: Acute Assessment and Plan: * positive troponins noted * Cardiology following * fluid removal with HD to acheive euvolemia (5) Anemia: Code(s): D64.9 - Anemia, unspecified Status: Chronic Assessment and Plan: * due to a combination of GIULIANA, CKD, and acute illness * PRBC transfusion today * continue Epogen with HD * follow trend of H/H (6) Type 2 diabetes mellitus without complication: Qualifiers: Diabetes mellitus shelter insulin use: with shelter use Qualified Code(s): E11.9 - Type 2 diabetes mellitus without complications; Z79.4 - 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 Subjective Date/time seen: 04/19/20 12:22 Tolerating dialysis at the time of my visit (seen on HD at ~ 12:15PM); appears to be feeling reasonably well; noted plans for transfer of of ICU today; no apparent distress noted. Exam Narrative: Exam Narrative: General: WD/WN female in NAD Heart: normal S1 and S2; no rub Lungs: coarse breath sounds; decreased at bases Abdomen: soft, nontender, nondistended, positive bowel sounds Extremities: no cyanosis or clubbing; 1+ edema Skin: warm and dry Objective Data Vital Signs Vital Signs: Vital Signs Temp Pulse Resp BP Pulse Ox 04/19/20 12:15 70 166/60 H 04/19/20 12:06 36.9 C 66 18 148/56 H 99 04/19/20 12:00 67 148/56 H 04/19/20 11:49 36.8 C 66 20 149/59 H 99 04/19/20 11:45 65 149/59 H 04/19/20 11:30 66 157/60 H 04/19/20 11:15 67 140/60 04/19/20 11:00 63 144/54 H 04/19/20 10:45 65 149/50 H 04/19/20 10:30 62 140/54 L 04/19/20 10:15 64 160/57 H 04/19/20 10:00 65 151/80 H 04/19/20 09:45 64 155/58 H 04/19/20 09:42 69 168/54 H 04/19/20 09:32 36.9 C 67 19 151/53 H 96 04/19/20 08:48 90 04/19/20 06:00 68 04/19/20 04:00 72 04/19/20 02:00 63 04/19/20 00:00 37.4 C 67 18 156/62 H 96 04/18/20 22:00 66
--- NOTE | 2020-04-19 12:22 | PM.PNNEP ---
Progress Note: A&P Assessment and Plan (1) GIULIANA (acute kidney injury): Code(s): N17.9 - Acute kidney failure, unspecified Status: Acute Assessment and Plan: decline in kidney function noted with acute illness initiated on renal replacement therapy/dialysis (04/16/20) unfortunately, given her advanced CKD at baseline, I suspect the patient is dialysis dependent (ESRD) HD today and follow trend of labs and UOP will need tunneled HD catheter on discharge if remains dialysis dependent (2) Chronic renal failure, stage 4 (severe): Code(s): N18.4 - Chronic kidney disease, stage 4 (severe) Status: Chronic Assessment and Plan: baseline creatinine runs in the 4ish range due to hypertension, diabetes, and vascular disease (3) Essential (primary) hypertension: Code(s): I10 - Essential (primary) hypertension Status: Acute Assessment and Plan: reasonable control follow hemodynamics fluid removal will likely help maintain BP (4) Acute on chronic diastolic (congestive) heart failure: Code(s): I50.33 - Acute on chronic diastolic (congestive) heart failure Status: Acute Assessment and Plan: positive troponins noted Cardiology following fluid removal with HD to acheive euvolemia (5) Anemia: Code(s): D64.9 - Anemia, unspecified Status: Chronic Assessment and Plan: due to a combination of GIULIANA, CKD, and acute illness PRBC transfusion today continue Epogen with HD follow trend of H/H (6) Type 2 diabetes mellitus without complication: Qualifiers: Diabetes mellitus terminal worker insulin use: with half-way use Qualified Code(s): E11.9 - Type 2 diabetes mellitus without complications; Z79.4 - alf (current) use of insulin Code(s): E11.9 - Type 2 diabetes mellitus without complications Status: Chronic Assessment and Plan: follow accu-Cheks on sliding-scale insulin Will continue to follow. Subjective Date/time seen: 04/19/20 12:22 Tolerating dialysis at the time of my visit (seen on HD at ~ 12:15PM); appears to be feeling reasonably well; noted plans for transfer of of ICU today; no apparent distress noted. Exam Narrative: Exam Narrative: General: WD/WN female in NAD Heart: normal S1 and S2; no rub Lungs: coarse breath sounds; decreased at bases Abdomen: soft, nontender, nondistended, positive bowel sounds Extremities: no cyanosis or clubbing; 1+ edema Skin: warm and dry Objective Data Vital Signs Vital Signs: Vital Signs Temp Pulse Resp BP Pulse Ox 04/19/20 12:15 70 166/60 H 04/19/20 12:06 36.9 C 66 18 148/56 H 99 04/19/20 12:00 67 148/56 H 04/19/20 11:49 36.8 C 66 20 149/59 H 99 04/19/20 11:45 65 149/59 H 04/19/20 11:30 66 157/60 H 04/19/20 11:15 67 140/60 04/19/20 11:00 63 144/54 H 04/19/20 10:45 65 149/50 H 04/19/20 10:30 62 140/54 L 04/19/20 10:15 64 160/57 H 04/19/20 10:00 65 151/80 H 04/19/20 09:45 64 155/58 H 04/19/20 09:42 69 168/54 H 04/19/20 09:32 36.9 C 67 19 151/53 H 96 04/19/20 08:48 90 04/19/20 06:00 68 04/19/20 04:00 72 04/19/20 02:00 63 04/19/20 00:00 37.4 C 67 18 156/62 H 96 04/18/20 22:00 66 04/18/20 20:42 67 04/18/20 20:00 37.3 C 73 19 143/42 H 95 04/18/20 17:35 70 04/18/20 16:00 37.3 C 64 20 140/42 L 97 04/18/20 14:00 66 Intake/Output Intake/Output: Intake & Output 04/16/20 04/17/20 04/18/20 04/19/20 23:59 23:59 23:59 23:59 Intake Total 575 1210 1305 340 Output Total 1100 3895 250 300 Balance -211 -0771 1055 40 Meds/Results Medications: Active Medications Generic Name Dose Route Start Last Admin Trade Name Freq PRN Reason Stop Dose Admin Acetaminophen 650 mg 04/11/20 23:30 04/14/20 11:54 Acetaminophen 325 Mg Tablet PO 650 mg Q4H PRN Administration Mild Pain
--- NOTE | 2020-04-19 13:22 | PCPTNOTE ---
Attempted to see pt for PT this p.m. - she requested that I return later.
--- NOTE | 2020-04-19 13:22 | PCOTNOTE ---
Attempted to see patient for OT, patient just completed dialysis and declined at this time. Will check back to try to see patient later this date if time permits, or continue plan of care tomorrow, 04/20/2020.
[2020-04-19] MEDS: ASPIRIN 325 MG TABLET PO (14:31)
[2020-04-19] MEDS: HEPARIN SODIUM 5,000 UNITS/ML VIAL 5000 UNITS SUB-Q ×2 (14:32→21:01)
[2020-04-19] MEDS: ROSUVASTATIN 10 MG TABLET 40 MG PO (14:32)
[2020-04-19] MEDS: PANTOPRAZOLE SODIUM IV 40 MG VIAL IV PUSH ×2 (14:32→21:01)
[2020-04-19] MEDS: carvediloL 12.5 MG TABLET PO ×2 (14:33→20:59)
[2020-04-19] MEDS: CLOPIDOGREL BISULFATE 75 MG TABLET PO (14:34)
--- NOTE | 2020-04-19 14:49 | PCDIET ---
Nutrition Follow-Up Complete: Nutrition Diagnosis: Inadequate oral intake related to oral intubation as evidenced by NPO status. Nutrition Goal: Patient to meet estimated nutritional needs. Goal in progress. Patient did order lunch tray, but no intake records prior. Recommend adding Nepro (425kcal, 19g protein) 1x and following closely. Diet is heart healthy which is appropriate with monitoring of renal labs. Noted phosphorus in goal range today. Last recorded weight is 80.2 kg which is down from last review. Patient had 3.1L UF on 04/17/20. Bowel Motility: Last documented BM on 04/18/20. Labs Reviewed: Hgb (6.6), Hct (20.0), Glu (131), BUN (84), Cr (6.3), K (2.6), Na (136) Meds Noted: Albumin, Epogen, Synthroid, Rocephin, Protonix, Doxycycline, NS at 30mL/hr, KCl Additional Notes: No documented pressure sores. Will continue to monitor with same goal. Nutrition Monitoring and Evaluation: Follow up every 3 days.
[2020-04-19 15:00] LABS: Glucose Point of Care 155 (65-105)
--- NOTE | 2020-04-19 16:06 | PC.NURSE ---
This patient, Jing Lawson, was transferred to [[id number]] on 04/19/20 at 1606. Personal belongings sent with patient. Report given to [NEERU MORALEZ]. Appropriate documentation sent with patient.
--- NOTE | 2020-04-19 16:08 | PM.PNCARD ---
Progress Note: A&P Assessment and Plan (1) Acute on chronic renal failure: Code(s): N17.9 - Acute kidney failure, unspecified; N18.9 - Chronic kidney disease, unspecified Status: Acute Assessment and Plan: Appreciate nephrology involved. Hemodialysis further recommendations. (2) Coronary disease: Code(s): I25.10 - Atherosclerotic heart disease of [place] coronary artery without angina pectoris Status: Acute Assessment and Plan: History of PCI. Continue medical therapy including aspirin and clopidogrel. (3) Elevated troponin: Code(s): R77.8 - Other specified abnormalities of plasma proteins Status: Acute Assessment and Plan: troponins are elevated but without significant rise or fall. This could be related to underlying renal failure/heart failure/BP. Cannot completely exclude ACS. Continue aspirin, clopidogrel, beta-antonio (4) Acute on chronic diastolic (congestive) heart failure: Code(s): I50.33 - Acute on chronic diastolic (congestive) heart failure Status: Acute Assessment and Plan: Heart failure with preserved ejection fraction red likely secondary to uncontrolled hypertension as well as severe progressive renal failure and anemia. Volume management per Nephrology with hemodialysis. Patient is much more euvolemic. (5) Hypertension associated with diabetes: Code(s): E11.59 - Type 2 diabetes mellitus with other circulatory complications; I15.2 - Hypertension secondary to endocrine disorders Status: Acute Assessment and Plan: Continue Coreg 12.5 mg b.i.d. BP remains fairly elevated. (6) Anemia: Code(s): D64.9 - Anemia, unspecified Status: Acute Assessment and Plan: Severe. Hemoglobin down from yesterday 6.6 this a.m.. EPO. Follow H&H closely. Transfuse as needed hemoglobin less than 7. Subjective Date/time seen: Date of service: 04/19/20 16:08 Interval history: Follow-up visit in this 75-year-old female with: Significant volume overload and end-stage renal disease. History of diastolic left ventricular noncompliance Hemodialysis today. Feels worn out, weak. Denies shortness of breath or chest pain. Feels a lot better than she did at admission. Transferred out of ICU today. Review of Systems Review of Systems: All systems reviewed & are unremarkable except as noted in HPI and below Constitutional: Constitutional: Denies chills, Denies excessive sweating and Denies headache(s) Eyes: Eyes: Denies blurry vision ENT: Denies headache(s), Denies lip swelling, Denies epistaxis and Denies neck pain Cardiovascular: Cardiovascular: Denies chest pain, Reports leg edema and Reports dyspnea Respiratory: Respiratory: Reports dyspnea Gastrointestinal: Gastrointestinal: Denies abdominal pain Genitourinary: Genitourinary: Denies flank pain Musculoskeletal: Musculoskeletal: Denies neck pain Integumentary/Breasts: Skin/Breast: Denies dry skin Neurologic: Denies confusion and Denies headache(s) Psychiatric: Psychiatric: Denies anxiety and Denies confusion Endocrine: Endocrine: Denies excessive sweating Hematologic/Lymphatic: Hematologic/Lymphatic: Denies easy bleeding Allergic/Immunologic: Allergic/Immunologic: Denies lip swelling Exam Narrative: Exam Narrative: Apparent distress, comfortable alert and oriented x3. Breathing comfortably speaking in full sentences. Const: General: comfortable; No confusion Orientation/consciousness: No confusion HENMT: General nose exam: Normal nares present Eyes: Sclera: abnormal sclerae Neck: Neck: no JVD Chest: Other: no chest wall deformities seen Resp: Effort & Inspection: normal respiratory effort Auscultation: no rales, no wheezes and diminished lung sounds Cardio: Rate: regular rate Rhythm: regular rhythm Heart sounds: Murmur heart sound present Urinary Catheter: Urinary Catheter: patent and draining Skin: General skin exam
[2020-04-19 17:31] LABS: Glucose Point of Care 172 (65-105)
[2020-04-19 21:47] LABS: Glucose Point of Care 265 (65-105)
[2020-04-20] VITALS (12 sets, daily range): BP systolic 140–177; BP diastolic 48; PULSE 59–67; RESP 16–20; TEMP 36.3–36.9; O2SAT 92–100
[2020-04-20] MEDS: hydrALAZINE HCL 20 MG/ML VIAL IV PUSH ×2 (04:29→20:05)
[2020-04-20] MEDS: LEVOTHYROXINE SODIUM 75 MCG TABLET PO (05:31)
[2020-04-20] MEDS: HEPARIN SODIUM 5,000 UNITS/ML VIAL 5000 UNITS SUB-Q ×3 (05:32→21:37)
[2020-04-20] MEDS: ALBUMIN HUMAN 25% 12.5 GM/50ML 50 ML IVPB ×4 (05:33→23:16)
[2020-04-20 08:06] LABS: Glucose Point of Care 175 (65-105)
[2020-04-20] MEDS: PANTOPRAZOLE SODIUM IV 40 MG VIAL IV PUSH ×2 (09:05→20:05)
[2020-04-20] MEDS: ROSUVASTATIN 10 MG TABLET 40 MG PO (09:06)
[2020-04-20] MEDS: CLOPIDOGREL BISULFATE 75 MG TABLET PO (09:06)
[2020-04-20] MEDS: ASPIRIN 325 MG TABLET PO (09:06)
[2020-04-20] MEDS: carvediloL 12.5 MG TABLET PO ×2 (09:53→20:05)
[2020-04-20 11:03] LABS: Basophils Percent Auto 0.3 % (0.2-1.2); Eosinophils Absolute Auto 0.4 K/mm3 (0-0.3); Eosinophils Percent Auto 2.9 % (0-4.4); Hematocrit 30.6 % (37.0-47.0); Hemoglobin 9.7 g/dL (12.0-15.0); Immature Granulocyte Absolute 0.74 K/mm3 (0.00-0.031); Immature Granulocyte Percent A 5.1 % (0-0.5); Lymphocytes Absolute Auto 0.98 K/mm3 (0.9-3.2); Lymphocytes Percent Auto 6.8 % (18.3-44.2); Mean Corpuscular HGB Conc 31.7 g/dl (32-36); Mean Corpuscular Hemoglobin 28.8 pg (26-34); Mean Corpuscular Volume 90.8 fl (80-100); Monocytes Absolute Auto 1.2 K/mm3 (0.1-0.6); Monocytes Percent Auto 8.3 % (2.6-8.5); Neutrophils Percent Auto 76.6 % (45.5-73.1); Nucleated Red Blood Cells Absolute Auto 0.1 K/mm3 (0.0-0.012); Nucleated Red Blood Cells Perc 0.4 % (0.0-0.2); Platelet Count Result 179 k/mm3 (150-375); Red Blood Count 3.37 M/mm3 (4.2-5.4); Red Cell Distribution Width 15.4 % (11.5-14.5); White Blood Count 14.4 K/mm3 (4.5-10.0)
[2020-04-20 11:24] LABS: Albumin Level 4.9 g/dL (3.5-5.1); Anion Gap 19 mmol/L (8-16); Blood Urea Nitrogen 67 mg/dL (7-17); Calcium 9.3 mg/dL (8.4-10.2); Carbon Dioxide 24 mmol/L (22-30); Chloride 94 mmol/L (98-107); Estimated CRCL calculation 8 ml/min; Estimated Glomerular Filt Rate 8; Glucose 265 mg/dL (65-105); Phosphorus 3.6 mg/dL (2.5-4.5); Potassium 3.2 mmol/L (3.4-5.0); Sodium 137 mmol/L (137-145)
[2020-04-20 11:24] LABS: Glucose Point of Care 277 (65-105)
--- NOTE | 2020-04-20 11:36 | P.PNNP_ITS ---
Progress Note: A&P Assessment and Plan (1) GIULIANA (acute kidney injury): Code(s): N17.9 - Acute kidney failure, unspecified Status: Acute Assessment and Plan: * decline in kidney function noted with acute illness * initiated on renal replacement therapy/dialysis (04/16/20) * unfortunately, given her advanced CKD at baseline, I suspect the patient is dialysis dependent (ESRD) * HD tomorrow and follow trend of labs and UOP * will need tunneled HD catheter on discharge if remains dialysis dependent (2) Chronic renal failure, stage 4 (severe): Code(s): N18.4 - Chronic kidney disease, stage 4 (severe) Status: Chronic Assessment and Plan: * baseline creatinine runs in the 4ish range * due to hypertension, diabetes, and vascular disease (3) Essential (primary) hypertension: Code(s): I10 - Essential (primary) hypertension Status: Acute Assessment and Plan: * reasonable control * follow hemodynamics * fluid removal will likely help maintain BP (4) Acute on chronic diastolic (congestive) heart failure: Code(s): I50.33 - Acute on chronic diastolic (congestive) heart failure Status: Acute Assessment and Plan: * positive troponins noted * Cardiology following * fluid removal with HD to acheive euvolemia (5) Anemia: Code(s): D64.9 - Anemia, unspecified Status: Chronic Assessment and Plan: * due to a combination of GIULIANA, CKD, and acute illness * PRBC transfusion yesterday * continue Epogen with HD * follow trend of H/H (6) Type 2 diabetes mellitus without complication: Qualifiers: Diabetes mellitus [employer] insulin use: with retirement use Qualified Code(s): E11.9 - Type 2 diabetes mellitus without complications; Z79.4 - alf (current) use of insulin Code(s): E11.9 - Type 2 diabetes mellitus without complications Status: Chronic Assessment and Plan: * follow accu-Cheks * on sliding-scale insulin Will continue to follow. Subjective Date/time seen: 04/20/20 11:36 Patient tolerated hemodialysis yesterday morning; transferred out of ICU yesterday as well; major complaint is that of back pain which she thinks is due to the hospital bed; H/H better following PRBC transfusion yesterday as well; no apparent distress noted at this time. Exam Narrative: Exam Narrative: General: WD/WN female in NAD Heart: normal S1 and S2; no rub Lungs: coarse breath sounds; decreased at bases Abdomen: soft, nontender, nondistended, positive bowel sounds Extremities: no cyanosis or clubbing; 1+ edema Skin: warm and dry Objective Data Vital Signs Vital Signs: Vital Signs Temp Pulse Resp BP Pulse Ox 04/20/20 09:53 65 04/20/20 08:25 92 04/20/20 08:00 64 99 04/20/20 04:00 36.3 C L 65 20 177/48 H 97 04/20/20 00:00 66 04/19/20 20:59 64 04/19/20 20:00 36.7 C 62 20 156/50 H 97 04/19/20 16:00 36.1 C L 63 16 148/49 H 98 04/19/20 14:33 72 04/19/20 14:00 70 04/19/20 13:15 36.7 C 73 19 172/85 H 99 04/19/20 13:11 68 159/73 H 04/19/20 13:00 67 158/57 H 04/19/20 12:45 68 160/61 H 04/19/20 12:30 67 159/60 H 04/19/20 12:23 36.9 C 66 19 166/60 H 100 04/19/20 12:15 70 166/60 H 04/19/20 12:06 36.9 C 66 18 148/56 H 99
--- NOTE | 2020-04-20 11:36 | PM.PNNEP ---
Progress Note: A&P Assessment and Plan (1) GIULIANA (acute kidney injury): Code(s): N17.9 - Acute kidney failure, unspecified Status: Acute Assessment and Plan: decline in kidney function noted with acute illness initiated on renal replacement therapy/dialysis (04/16/20) unfortunately, given her advanced CKD at baseline, I suspect the patient is dialysis dependent (ESRD) HD tomorrow and follow trend of labs and UOP will need tunneled HD catheter on discharge if remains dialysis dependent (2) Chronic renal failure, stage 4 (severe): Code(s): N18.4 - Chronic kidney disease, stage 4 (severe) Status: Chronic Assessment and Plan: baseline creatinine runs in the 4ish range due to hypertension, diabetes, and vascular disease (3) Essential (primary) hypertension: Code(s): I10 - Essential (primary) hypertension Status: Acute Assessment and Plan: reasonable control follow hemodynamics fluid removal will likely help maintain BP (4) Acute on chronic diastolic (congestive) heart failure: Code(s): I50.33 - Acute on chronic diastolic (congestive) heart failure Status: Acute Assessment and Plan: positive troponins noted Cardiology following fluid removal with HD to acheive euvolemia (5) Anemia: Code(s): D64.9 - Anemia, unspecified Status: Chronic Assessment and Plan: due to a combination of GIULIANA, CKD, and acute illness PRBC transfusion yesterday continue Epogen with HD follow trend of H/H (6) Type 2 diabetes mellitus without complication: Qualifiers: Diabetes mellitus assisted insulin use: with 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 Subjective Date/time seen: 04/20/20 11:36 Patient tolerated hemodialysis yesterday morning; transferred out of ICU yesterday as well; major complaint is that of back pain which she thinks is due to the hospital bed; H/H better following PRBC transfusion yesterday as well; no apparent distress noted at this time. Exam Narrative: Exam Narrative: General: WD/WN female in NAD Heart: normal S1 and S2; no rub Lungs: coarse breath sounds; decreased at bases Abdomen: soft, nontender, nondistended, positive bowel sounds Extremities: no cyanosis or clubbing; 1+ edema Skin: warm and dry Objective Data Vital Signs Vital Signs: Vital Signs Temp Pulse Resp BP Pulse Ox 04/20/20 09:53 65 04/20/20 08:25 92 04/20/20 08:00 64 99 04/20/20 04:00 36.3 C L 65 20 177/48 H 97 04/20/20 00:00 66 04/19/20 20:59 64 04/19/20 20:00 36.7 C 62 20 156/50 H 97 04/19/20 16:00 36.1 C L 63 16 148/49 H 98 04/19/20 14:33 72 04/19/20 14:00 70 04/19/20 13:15 36.7 C 73 19 172/85 H 99 04/19/20 13:11 68 159/73 H 04/19/20 13:00 67 158/57 H 04/19/20 12:45 68 160/61 H 04/19/20 12:30 67 159/60 H 04/19/20 12:23 36.9 C 66 19 166/60 H 100 04/19/20 12:15 70 166/60 H 04/19/20 12:06 36.9 C 66 18 148/56 H 99 04/19/20 12:00 66 148/56 H 04/19/20 11:49 36.8 C 66 20 149/59 H 99 04/19/20 11:45 65 149/59 H Intake/Output Intake/Output: Intake & Output 04/17/20 04/18/20 04/19/20 04/20/20 23:59 23:59 23:59 23:59 Intake Total 1210 1305 1290 190 Output Total [id number] 150 Mbyzptx -5592 6816 -1190 40 Meds/Results Medications: Active Medications Generic Name Dose Route Start Last Admin Trade Name Freq PRN Reason Stop Dose Admin Acetaminophen 650 mg 04/11/20 23:30 04/14/20 11:54 Acetaminophen 325 Mg Tablet PO 650 mg Q4H PRN Administration Mild Pain (1-3) OR FEVER Aspirin 325 mg
[2020-04-20] MEDS: INSULIN ASPART (*BKC) 100 UNITS/ML SUB-Q ×2 (11:45→17:20)
--- NOTE | 2020-04-20 15:50 | PM.PNCARD ---
Progress Note: A&P Assessment and Plan (1) Acute on chronic renal failure: Code(s): N17.9 - Acute kidney failure, unspecified; N18.9 - Chronic kidney disease, unspecified Status: Acute Assessment and Plan: Appreciate nephrology involvement. Hemodialysis further recommendations. Hemodialysis tomorrow. (2) Coronary disease: Code(s): I25.10 - Atherosclerotic heart disease of [place] coronary artery without angina pectoris Status: Acute Assessment and Plan: History of PCI. Continue medical therapy including aspirin and clopidogrel. Aspirin reduced from 325 to 81 mg. (3) Elevated troponin: Code(s): R77.8 - Other specified abnormalities of plasma proteins Status: Acute Assessment and Plan: Type 2 infarct not consistent with acute coronary syndrome. Troponins but without significant rise or fall. This could be related to underlying renal failure/heart failure/BP. Continue aspirin, clopidogrel, beta-antonio (4) Acute on chronic diastolic (congestive) heart failure: Code(s): I50.33 - Acute on chronic diastolic (congestive) heart failure Status: Acute Assessment and Plan: Heart failure with preserved ejection fraction likely secondary to uncontrolled hypertension as well as severe progressive renal failure and anemia. Volume management per Nephrology with hemodialysis. Patient is much more euvolemic. (5) Hypertension associated with diabetes: Code(s): E11.59 - Type 2 diabetes mellitus with other circulatory complications; I15.2 - Hypertension secondary to endocrine disorders Status: Acute Assessment and Plan: Continue Coreg 12.5 mg b.i.d. BP remains fairly elevated. (6) Anemia: Code(s): D64.9 - Anemia, unspecified Status: Acute Assessment and Plan: Improving after transfusion with HD yesterday. EPO. Follow H&H closely. Transfuse as needed hemoglobin less than 7. Subjective Date/time seen: date of service: 04/20/20 15:50 Interval history: Follow-up visit in this 75-year-old female with: Significant volume overload and end-stage renal disease. History of diastolic left ventricular noncompliance Did much better with physical therapy today red yesterday but still feels rather weak. Denies dizziness or significant shortness of breath. No chest pain. No palpitations. Transfused yesterday, H&H improved today. States he did not sleep well last night due to discomfort in the bed. Review of Systems Review of Systems: All systems reviewed & are unremarkable except as noted in HPI and below Constitutional: Constitutional: Denies chills, Denies excessive sweating and Denies headache(s) Eyes: Eyes: Denies blurry vision ENT: Denies headache(s), Denies lip swelling, Denies epistaxis and Denies neck pain Cardiovascular: Cardiovascular: Denies chest pain, Reports leg edema and Reports dyspnea Respiratory: Respiratory: Reports dyspnea Gastrointestinal: Gastrointestinal: Denies abdominal pain Genitourinary: Genitourinary: Denies flank pain Musculoskeletal: Musculoskeletal: Denies neck pain Integumentary/Breasts: Skin/Breast: Denies dry skin Neurologic: Denies confusion and Denies headache(s) Psychiatric: Psychiatric: Denies anxiety and Denies confusion Endocrine: Endocrine: Denies excessive sweating Hematologic/Lymphatic: Hematologic/Lymphatic: Denies easy bleeding Allergic/Immunologic: Allergic/Immunologic: Denies lip swelling Exam Narrative: Exam Narrative: Apparent distress, comfortable alert and oriented x3. Breathing comfortably speaking in full sentences. Const: General: comfortable; No confusion Orientation/consciousness: No confusion HENMT: General nose exam: Normal nares present Eyes: Sclera: abnormal sclerae Neck: Neck: no JVD Chest: Other: no chest wall deformities seen Resp: Effort & Inspection: normal respiratory effort Auscultation: no rales, no wheezes and dimin
--- NOTE | 2020-04-20 17:23 | PM.IMPN ---
Progress Note: A&P Assessment and Plan (1) Acute on chronic anemia: Code(s): D64.9 - Anemia, unspecified Status: Acute Assessment and Plan: Currently on Epo Transfuse 2 units 04/19 and hemoglobin 9.7 today (2) Acute on chronic diastolic (congestive) heart failure: Code(s): I50.33 - Acute on chronic diastolic (congestive) heart failure Status: Acute Assessment and Plan: Stable with Coreg and Controlling fluid with dialysis (3) Chronic renal failure, stage 4 (severe): Code(s): N18.4 - Chronic kidney disease, stage 4 (severe) Status: Chronic Assessment and Plan: Requiring HD next session 04/21 (4) Acute non-ST elevation myocardial infarction (NSTEMI): Code(s): I21.4 - Non-ST elevation (NSTEMI) myocardial infarction Status: Acute Assessment and Plan: Probable troponin leak secondary to volume overload (5) Anemia due to stage 4 chronic kidney disease: Code(s): N18.4 - Chronic kidney disease, stage 4 (severe); D63.1 - Anemia in chronic kidney disease Status: Acute Assessment and Plan: Epo and as above transfusion is needed (6) Hx of non-ST elevation myocardial infarction (NSTEMI): Code(s): I25.2 - Old myocardial infarction Status: Acute Assessment and Plan: Stable (7) Acute respiratory failure: Qualifiers: Respiratory failure complication: hypoxia Qualified Code(s): J96.01 - Acute respiratory failure with hypoxia Code(s): J96.00 - Acute respiratory failure, unspecified whether with hypoxia or hypercapnia Status: Acute Assessment and Plan: Resolved thought secondary to congestive heart failure and or possible pneumonia. Extubated 04/14. Continue PT Subjective Date/time seen: 04/20/20 17:23 Interval history: Date of visit 04/20 77-year-old hypertensive type 2 diabetic admitted with acute respiratory failure secondary to volume overload and diastolic heart failure. Mechanically ventilated within 24 hours after admission for some 48 hours and extubated 04/14 Did much better with physical therapy today andyesterday but still feels rather weak. Denies dizziness or significant shortness of breath. No chest pain. No palpitations. Transfused yesterday, . States he did not sleep well last night due to discomfort in the bed. Exam Narrative: Exam Narrative: Blood pressure 140/48 pulse 60 and regular sat 99% on 3 L nasal cannula afebrile Sitting up in bed with no specific complaints Lungs clear CV regular rate rhythm Abdomen soft nontender Extremities is trace edema of any Neuro alert pleasant cooperative no focal deficits Objective Data Vital Signs Vital Signs: Vital Signs - 24 hr 04/19/20 20:00 04/19/20 20:59 04/20/20 00:00 Temperature 36.7 C Pulse Rate 62 64 66 Respiratory Rate 20 Blood Pressure 156/50 H Pulse Oximetry 97 04/20/20 04:00 04/20/20 08:00 04/20/20 08:25 Temperature 36.3 C L Pulse Rate 65 64 Respiratory Rate 20 Blood Pressure 177/48 H Pulse Oximetry 97 99 92 04/20/20 09:53 04/20/20 12:00 04/20/20 14:00 Temperature 36.9 C Pulse Rate 65 60 59 L Respiratory Rate 16 Blood Pressure 140/48 L Pulse Oximetry 99 04/20/20 16:00 Temperature Pulse Rate 61 Respiratory Rate Blood Pressure Pulse Oximetry Intake/Output Intake/Output: Intake & Output 04/17/20 04/18/20 04/19/20 04/20/20 23:59 23:59 23:59 23:59 Intake Total 1210 1305 1290 730 Output Total 3975 250 3125 150 Balance -9065 1055 -183 580 Meds/Results Medications: Active Medications Generic Name Dose Route Start Last Admin Trade Name Freq PRN Reason Stop Dose Admin Acetaminophen 650 mg 04/11/20 23:30 04/14/20 11:54 Acetaminophen 325 Mg Tablet PO 650 mg Q4H PRN Administration Mild Pain (1-3) OR FEVER Aspirin 81 mg 04/21/20 09:00 Aspirin 81 Mg Enteric Tablet PO [facility] Carvedilol 12.5 mg 04/14/20 21:00 04/20/20 09
[2020-04-20 17:42] LABS: Glucose Point of Care 212 (65-105)
[2020-04-20 23:15] LABS: Glucose Point of Care 180 (65-105)
[2020-04-21] VITALS (28 sets, daily range): BP systolic 90–164; BP diastolic 36–65; PULSE 51–70; RESP 16–18; TEMP 14–37.1; O2SAT 94–100
[2020-04-21] MEDS: HEPARIN SODIUM 5,000 UNITS/ML VIAL 5000 UNITS SUB-Q ×3 (05:35→21:05)
[2020-04-21] MEDS: LEVOTHYROXINE SODIUM 75 MCG TABLET PO (05:35)
[2020-04-21] MEDS: ALBUMIN HUMAN 25% 12.5 GM/50ML 50 ML IVPB ×4 (05:37→23:42)
[2020-04-21 06:15] LABS: Basophils Absolute Auto 0.1 K/mm3 (0.0-0.1); Basophils Percent Auto 0.6 % (0.2-1.2); Eosinophils Absolute Auto 0.6 K/mm3 (0-0.3); Eosinophils Percent Auto 3.5 % (0-4.4); Hematocrit 25.8 % (37.0-47.0); Hemoglobin 8.4 g/dL (12.0-15.0); Immature Granulocyte Absolute 0.88 K/mm3 (0.00-0.031); Immature Granulocyte Percent A 5.1 % (0-0.5); Lymphocytes Absolute Auto 1.45 K/mm3 (0.9-3.2); Lymphocytes Percent Auto 8.4 % (18.3-44.2); Mean Corpuscular HGB Conc 32.6 g/dl (32-36); Mean Corpuscular Hemoglobin 28.8 pg (26-34); Mean Corpuscular Volume 88.4 fl (80-100); Mean Platelet Volume 9.6 fl (7.4-10.4); Monocytes Absolute Auto 1.5 K/mm3 (0.1-0.6); Monocytes Percent Auto 8.4 % (2.6-8.5); Neutrophils Absolute Auto 12.8 K/mm3 (1.3-6.7); Nucleated Red Blood Cells Perc 0.2 % (0.0-0.2); Platelet Count Result 157 k/mm3 (150-375); Red Blood Count 2.92 M/mm3 (4.2-5.4); Red Cell Distribution Width 15.2 % (11.5-14.5); White Blood Count 17.3 K/mm3 (4.5-10.0)
[2020-04-21 06:49] LABS: Anion Gap 18 mmol/L (8-16); Blood Urea Nitrogen 86 mg/dL (7-17); Calcium 8.7 mg/dL (8.4-10.2); Carbon Dioxide 24 mmol/L (22-30); Chloride 93 mmol/L (98-107); Estimated CRCL calculation 6 ml/min; Estimated Glomerular Filt Rate 6; Glucose 151 mg/dL (65-105); Sodium 135 mmol/L (137-145)
[2020-04-21 07:16] LABS: Hepatitis B Surface Antigen Negative (Negative)
[2020-04-21 07:21] LABS: HAV RESULT Negative (Negative); Hepatitis B Core IgM Result Negative (Negative)
[2020-04-21 07:33] LABS: Hepatitis B Surface Anti Res Negative; Hepatitis C Virus Antibody Negative (Negative)
[2020-04-21 07:47] LABS: Glucose Point of Care 156 (65-105)
[2020-04-21] MEDS: ROSUVASTATIN 10 MG TABLET 40 MG PO (09:15)
[2020-04-21] MEDS: ASPIRIN 81 MG ENTERIC TABLET PO (09:15)
[2020-04-21] MEDS: PANTOPRAZOLE SODIUM IV 40 MG VIAL IV PUSH ×2 (09:15→20:24)
[2020-04-21] MEDS: carvediloL 12.5 MG TABLET PO ×2 (09:16→20:24)
[2020-04-21] MEDS: CLOPIDOGREL BISULFATE 75 MG TABLET PO (09:16)
[2020-04-21 11:56] LABS: Glucose Point of Care 248 (65-105)
[2020-04-21] MEDS: INSULIN ASPART (*BKC) 100 UNITS/ML SUB-Q (12:08)
--- NOTE | 2020-04-21 12:08 | PCNFU ---
Nutrition Follow-Up Complete: Inadequate oral intake related to oral intubation as evidenced by NPO status. Goal: Patient to meet estimated nutritional needs. Progressing towards goal. We will continue current goal. Pt current nutrition is heart healthy. Last recorded weight is 78.6 kg down from 87.6 on admit, attributing this to fluid. Bowel Motility:+BM 04/20 Labs Reviewed:Na 153,K 3.0, BUN 86,Cr 7.0,Glu 151 Meds Noted:Protonix, Crestor, Synthroid,NovoLog,Plavix. Additional Notes: Nutrition follow up. Patient eating 20-75% of meals. Diet supplements: Nepro once daily, providing an additional 425 kcals and 19 gms protein. Plans for Hemodialysis today. Discussion of possible need for tunneled cath if dialysis continues. Monitoring: weight,labs, meds, oral intake every 5 days.
--- NOTE | 2020-04-21 14:00 | PC.NURSE ---
Pt taken to dialysis per bed. Report to NAOMY Pacheco.
[2020-04-21] MEDS: EPOETIN ALFA-EPBX 10,000 UNITS/ML VIAL 10000 UNITS IV PUSH (14:54)
--- NOTE | 2020-04-21 16:24 | PM.IMPN ---
Progress Note: A&P Assessment and Plan (1) Acute on chronic anemia: Code(s): D64.9 - Anemia, unspecified Status: Acute Assessment and Plan: Currently on Epo Transfuse 2 units 04/19 and hemoglobin 8.4 today (2) Acute on chronic diastolic (congestive) heart failure: Code(s): I50.33 - Acute on chronic diastolic (congestive) heart failure Status: Acute Assessment and Plan: Stable with Coreg and Controlling fluid with dialysis (3) Chronic renal failure, stage 4 (severe): Code(s): N18.4 - Chronic kidney disease, stage 4 (severe) Status: Chronic Assessment and Plan: Requiring HD next session today 04/21 (4) Acute non-ST elevation myocardial infarction (NSTEMI): Code(s): I21.4 - Non-ST elevation (NSTEMI) myocardial infarction Status: Acute Assessment and Plan: Probable troponin leak secondary to volume overload (5) Anemia due to stage 4 chronic kidney disease: Code(s): N18.4 - Chronic kidney disease, stage 4 (severe); D63.1 - Anemia in chronic kidney disease Status: Acute Assessment and Plan: Epo and as above transfusion as needed (6) Hx of non-ST elevation myocardial infarction (NSTEMI): Code(s): I25.2 - Old myocardial infarction Status: Acute Assessment and Plan: Stable (7) Acute respiratory failure: Qualifiers: Respiratory failure complication: hypoxia Qualified Code(s): J96.01 - Acute respiratory failure with hypoxia Code(s): J96.00 - Acute respiratory failure, unspecified whether with hypoxia or hypercapnia Status: Acute Assessment and Plan: Resolved thought secondary to congestive heart failure and or possible pneumonia. Extubated 04/14. Continue PT Subjective Date/time seen: 04/21/20 16:24 Interval history: Date of visit 04/21 77-year-old hypertensive type 2 diabetic admitted with acute respiratory failure secondary to volume overload and diastolic heart failure. Mechanically ventilated within 24 hours after admission for some 48 hours and extubated 04/14 Did much better with physical therapy today but still feels rather weak. Denies dizziness or significant shortness of breath. No chest pain. No palpitations. Transfused 04/19, . States he did not sleep well last night due to discomfort in the bed.and requesting sleeping aid Exam Narrative: Exam Narrative: Blood pressure 154/62 pulse 66 and regular sat 94% on RA afebrile Sitting up in bed with no specific complaints Lungs clear with faint crackle Left post base CV regular rate rhythm Abdomen soft nontender Extremities is trace edema of any Neuro alert pleasant cooperative no focal deficits Objective Data Vital Signs Vital Signs: Vital Signs - 24 hr 04/20/20 19:54 04/20/20 20:00 04/20/20 20:05 Temperature 36.6 C Pulse Rate 61 63 63 Respiratory Rate 17 Blood Pressure 164/48 H Pulse Oximetry 100 04/20/20 22:55 04/21/20 00:00 04/21/20 04:00 Temperature Pulse Rate 67 67 62 Respiratory Rate Blood Pressure Pulse Oximetry 95 04/21/20 05:27 04/21/20 08:00 04/21/20 08:44 Temperature 37.1 C Pulse Rate 68 61 Respiratory Rate 18 Blood Pressure 142/46 H Pulse Oximetry 100 99 04/21/20 09:16 04/21/20 09:42 04/21/20 09:50 Temperature Pulse Rate 61 Respiratory Rate Blood Pressure Pulse Oximetry 98 98 04/21/20 10:43 04/21/20 12:00 04/21/20 13:48 Temperature 36.8 C Pulse Rate 59 L 67 Respiratory Rate 16 Blood Pressure 155/62 H Pulse Oximetry 94 04/21/20 13:53 04/21/20 14:00 04/21/20 14:10 Temperature Pulse Rate 66 67 63 Respiratory Rate Blood Pressure 148/62 H 156/65 H 111/40 L Pulse Oximetry 04/21/20 14:30 04/21/20 14:45 04/21/20 15:00 Temperature Pulse Rate 51 L 59 L 64 Respiratory Rate Blood Pressure 90/42 L 111/50 L 120/60 Pulse Oximetry 04/21/20 15:15 04/21/20 15:30 04/21/20 15:45 Temperature Pu
--- NOTE | 2020-04-21 16:30 | P.PNNP_ITS ---
Progress Note: A&P Assessment and Plan (1) End stage renal disease: Code(s): N18.6 - End stage renal disease Status: Chronic Assessment and Plan: * decline in kidney function noted with acute illness * initiated on renal replacement therapy/dialysis (04/16/20) * unfortunately, given her advanced CKD at baseline, I suspect the patient is dialysis dependent (ESRD) * HD today and will need outpatient hemodialysis arranged * will need tunneled HD catheter on discharge - Surgery consulted * etiology of ESRD is due to hypertension, diabetes, and vascular disease * ultimate plan is to transition to outpatient peritoneal dialysis (2) Essential (primary) hypertension: Code(s): I10 - Essential (primary) hypertension Status: Acute Assessment and Plan: * reasonable control * follow hemodynamics * fluid removal will likely help maintain BP (3) Acute on chronic diastolic (congestive) heart failure: Code(s): I50.33 - Acute on chronic diastolic (congestive) heart failure Status: Acute Assessment and Plan: * positive troponins noted * Cardiology following * fluid removal with HD to acheive euvolemia (4) Anemia: Code(s): D64.9 - Anemia, unspecified Status: Chronic Assessment and Plan: * due to a combination of GIULIANA, CKD, and acute illness * PRBC transfusion on 04/19/20 * continue Epogen with HD * follow trend of H/H (5) Type 2 diabetes mellitus without complication: Qualifiers: Diabetes 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 Subjective Date/time seen: 04/21/20 16:30 Tolerating hemodialysis treatment at the time of my visit (seen on HD at 4:15PM); major concern/complaint is that of back pain; no other events overnight or earlier this AM; breathing/respiratory status seems stable if not better; no other complaints voiced currently. Exam Narrative: Exam Narrative: General: WD/WN female in NAD Heart: normal S1 and S2; no rub Lungs: decreased at bases Abdomen: soft, nontender, nondistended, positive bowel sounds Extremities: no cyanosis or clubbing; trace - 1+ edema Skin: warm and dry Objective Data Vital Signs Vital Signs: Vital Signs Temp Pulse Resp BP Pulse Ox 04/21/20 16:00 64 130/54 L 04/21/20 15:45 66 127/55 L 04/21/20 15:30 63 130/55 L 04/21/20 15:15 62 139/55 L 04/21/20 15:00 64 120/60 04/21/20 14:45 59 L 111/50 L 04/21/20 14:30 51 L 90/42 L 04/21/20 14:10 63 111/40 L 04/21/20 14:00 67 156/65 H 04/21/20 13:53 66 148/62 H 04/21/20 13:48 36.8 C 67 16 155/62 H 04/21/20 12:00 59 L 04/21/20 10:43 94 04/21/20 09:50 98 04/21/20 09:42 98 04/21/20 09:16 61 04/21/20 08:44 99 04/21/20 08:00 61 04/21/20 05:27 37.1 C 68 18 142/46 H 100 04/21/20 04:00 62 04/21/20 00:00 67 04/20/20 22:55 67 95 04/20/20 20:05 63 04/20/20 20:00 63
--- NOTE | 2020-04-21 16:30 | PM.PNNEP ---
Progress Note: A&P Assessment and Plan (1) End stage renal disease: Code(s): N18.6 - End stage renal disease Status: Chronic Assessment and Plan: decline in kidney function noted with acute illness initiated on renal replacement therapy/dialysis (04/16/20) unfortunately, given her advanced CKD at baseline, I suspect the patient is dialysis dependent (ESRD) HD today and will need outpatient hemodialysis arranged will need tunneled HD catheter on discharge - Surgery consulted etiology of ESRD is due to hypertension, diabetes, and vascular disease ultimate plan is to transition to outpatient peritoneal dialysis (2) Essential (primary) hypertension: Code(s): I10 - Essential (primary) hypertension Status: Acute Assessment and Plan: reasonable control follow hemodynamics fluid removal will likely help maintain BP (3) Acute on chronic diastolic (congestive) heart failure: Code(s): I50.33 - Acute on chronic diastolic (congestive) heart failure Status: Acute Assessment and Plan: positive troponins noted Cardiology following fluid removal with HD to acheive euvolemia (4) Anemia: Code(s): D64.9 - Anemia, unspecified Status: Chronic Assessment and Plan: due to a combination of GIULIANA, CKD, and acute illness PRBC transfusion on 04/19/20 continue Epogen with HD follow trend of H/H (5) Type 2 diabetes mellitus without complication: Qualifiers: 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 Subjective Date/time seen: 04/21/20 16:30 Tolerating hemodialysis treatment at the time of my visit (seen on HD at 4:15PM); major concern/complaint is that of back pain; no other events overnight or earlier this AM; breathing/respiratory status seems stable if not better; no other complaints voiced currently. Exam Narrative: Exam Narrative: General: WD/WN female in NAD Heart: normal S1 and S2; no rub Lungs: decreased at bases Abdomen: soft, nontender, nondistended, positive bowel sounds Extremities: no cyanosis or clubbing; trace - 1+ edema Skin: warm and dry Objective Data Vital Signs Vital Signs: Vital Signs Temp Pulse Resp BP Pulse Ox 04/21/20 16:00 64 130/54 L 04/21/20 15:45 66 127/55 L 04/21/20 15:30 63 130/55 L 04/21/20 15:15 62 139/55 L 04/21/20 15:00 64 120/60 04/21/20 14:45 59 L 111/50 L 04/21/20 14:30 51 L 90/42 L 04/21/20 14:10 63 111/40 L 04/21/20 14:00 67 156/65 H 04/21/20 13:53 66 148/62 H 04/21/20 13:48 36.8 C 67 16 155/62 H 04/21/20 12:00 59 L 04/21/20 10:43 94 04/21/20 09:50 98 04/21/20 09:42 98 04/21/20 09:16 61 04/21/20 08:44 99 04/21/20 08:00 61 04/21/20 05:27 37.1 C 68 18 142/46 H 100 04/21/20 04:00 62 04/21/20 00:00 67 04/20/20 22:55 67 95 04/20/20 20:05 63 04/20/20 20:00 63 04/20/20 19:54 36.6 C 61 17 164/48 H 100 Intake/Output Intake/Output: Intake & Output 04/18/20 04/19/20 04/20/20 04/21/20 23:59 23:59 23:59 23:59 Intake Total 1305 1290 1020 750 Output Total 250 3125 150 200 Balance 1055 -1835 870 550 Meds/Results Medications: Active Medications Generic Name Dose Route Start Last Admin Trade Name Freq PRN Reason Stop Dose Admin Acetaminophen 650 mg 04/11/20 23:30 04/14/20 11:54 Acetaminophen 325 Mg Tablet PO 650 mg Q4H PRN Administration Mild Pain (1-3) OR FEVER Aspirin 81 mg 04/21/20 09:00 04/21/20 09:15 Aspirin 81 Mg Enteric Tablet PO 81 mg QAM OSIEL Administration Carvedilol
[2020-04-21 17:45] LABS: Glucose Point of Care 143 (65-105)
[2020-04-21] MEDS: DOXYCYCLINE HYCLATE 100 MG TABLET PO (20:24)
[2020-04-21 21:09] LABS: Glucose Point of Care 232 (65-105)
[2020-04-22] VITALS (18 sets, daily range): BP systolic 105–177; BP diastolic 36–64; PULSE 49–76; RESP 16–20; TEMP 35.8–37.2; O2SAT 93–100
[2020-04-22] MEDS: ALBUMIN HUMAN 25% 12.5 GM/50ML 50 ML IVPB ×2 (05:39→18:42)
[2020-04-22] MEDS: HEPARIN SODIUM 5,000 UNITS/ML VIAL 5000 UNITS SUB-Q ×2 (05:39→18:43)
[2020-04-22] MEDS: LEVOTHYROXINE SODIUM 75 MCG TABLET PO (05:39)
[2020-04-22 06:02] LABS: Basophils Absolute Auto 0.1 K/mm3 (0.0-0.1); Basophils Percent Auto 0.7 % (0.2-1.2); Eosinophils Absolute Auto 0.6 K/mm3 (0-0.3); Eosinophils Percent Auto 3.1 % (0-4.4); Hematocrit 26.1 % (37.0-47.0); Hemoglobin 8.6 g/dL (12.0-15.0); Immature Granulocyte Absolute 1.12 K/mm3 (0.00-0.031); Immature Granulocyte Percent A 5.7 % (0-0.5); Lymphocytes Absolute Auto 1.61 K/mm3 (0.9-3.2); Lymphocytes Percent Auto 8.2 % (18.3-44.2); Mean Corpuscular Hemoglobin 28.9 pg (26-34); Mean Corpuscular Volume 87.6 fl (80-100); Mean Platelet Volume 9.9 fl (7.4-10.4); Monocytes Absolute Auto 1.7 K/mm3 (0.1-0.6); Monocytes Percent Auto 8.8 % (2.6-8.5); Neutrophils Absolute Auto 14.4 K/mm3 (1.3-6.7); Neutrophils Percent Auto 73.5 % (45.5-73.1); Nucleated Red Blood Cells Absolute Auto 0.1 K/mm3 (0.0-0.012); Nucleated Red Blood Cells Perc 0.3 % (0.0-0.2); Platelet Count Result 163 k/mm3 (150-375); Red Blood Count 2.98 M/mm3 (4.2-5.4); Red Cell Distribution Width 15.1 % (11.5-14.5); White Blood Count 19.6 K/mm3 (4.5-10.0)
[2020-04-22 06:10] LABS: Albumin Level 4.7 g/dL (3.5-5.1); Anion Gap 14 mmol/L (8-16); Blood Urea Nitrogen 55 mg/dL (7-17); Calcium 9.4 mg/dL (8.4-10.2); Carbon Dioxide 29 mmol/L (22-30); Chloride 94 mmol/L (98-107); Estimated CRCL calculation 8 ml/min; Estimated Glomerular Filt Rate 8; Glucose 163 mg/dL (65-105); Phosphorus 3.4 mg/dL (2.5-4.5); Potassium 3.1 mmol/L (3.4-5.0); Sodium 137 mmol/L (137-145)
[2020-04-22] MEDS: CLOPIDOGREL BISULFATE 75 MG TABLET PO (08:57)
[2020-04-22] MEDS: DOXYCYCLINE HYCLATE 100 MG TABLET PO (08:57)
[2020-04-22] MEDS: POTASSIUM CHLORIDE 20 MEQ TABLET 40 MEQ PO (08:57)
[2020-04-22] MEDS: ASPIRIN 81 MG ENTERIC TABLET PO (08:57)
[2020-04-22] MEDS: PANTOPRAZOLE SODIUM IV 40 MG VIAL IV PUSH ×2 (08:58→21:23)
[2020-04-22] MEDS: ROSUVASTATIN 10 MG TABLET 40 MG PO (08:58)
[2020-04-22] MEDS: SODIUM CHLORIDE 0.9% INJ 10 ML (08:59)
[2020-04-22] MEDS: carvediloL 12.5 MG TABLET PO ×2 (08:59→21:22)
[2020-04-22 09:05] LABS: Glucose Point of Care 177 (65-105)
--- NOTE | 2020-04-22 11:07 | PM.PNGS ---
Progress Note: A&P Assessment and Plan (1) End stage renal disease: Code(s): N18.6 - End stage renal disease Status: Chronic Assessment and Plan: RECEIVING DIALYSIS PER JOE CATHETER AT PRESENT. NEPHROLOGY REQUESTS LONGER TERM ACCESS FOR HEMODIALYSIS WITH EVENTUAL PLANS FOR PERITONEAL DIALYSIS. (2) Encounter for fitting and adjustment of vascular catheter: Code(s): Z45.2 - Encounter for adjustment and management of vascular access device Status: Acute Assessment and Plan: WILL PROCEED WITH PLACEMENT OF TUNNELED CENTRAL VENOUS CATHETER UNDER FLUOROSCOPY FOR LONGER-TERM DIALYSIS. THE PROCEDURE THE RISKS THE BENEFITS HAVE BEEN DISCUSSED WITH THE PATIENT. SHE AGREES TO GO AHEAD. (3) Acute on chronic anemia: Code(s): D64.9 - Anemia, unspecified Status: Acute (4) Acute on chronic diastolic (congestive) heart failure: Code(s): I50.33 - Acute on chronic diastolic (congestive) heart failure Status: Chronic (5) Diabetic neuropathy associated with diabetes mellitus due to underlying condition: Code(s): E08.40 - Diabetes mellitus due to underlying condition with diabetic neuropathy, unspecified Status: Chronic (6) Hypertension associated with diabetes: Code(s): E11.59 - Type 2 diabetes mellitus with other circulatory complications; I15.2 - Hypertension secondary to endocrine disorders Status: Chronic Subjective Subjective Date/Time Seen: 04/22/20 11:07 Patient dialyzing with a right internal jugular Joe catheter. Nephrology requests tunneled central venous catheter for dialysis for longer-term purposes. Eventually patient to have peritoneal dialysis is the current plan. Review of Systems Review of Systems: All systems reviewed & are unremarkable except as noted in HPI and below (HPI in those items noted below) Constitutional: Constitutional: Denies chills, Reports difficulty sleeping, Reports fatigue and Denies fever(s) Cardiovascular: Cardiovascular: Denies chest pain and Reports dyspnea on exertion (Mild was worse before) Respiratory: Respiratory: Reports cough and Reports dyspnea on exertion (Mild, was worse before) Exam Const: General: comfortable and no acute distress; No confusion Orientation/consciousness: patient oriented x3 and No confusion Neck: Neck: other (Right IJ Joe catheter noted) Resp: Effort & Inspection: normal respiratory effort Auscultation: clear to auscultation bilaterally Cardio: Rate: regular rate Rhythm: regular rhythm GI: GI Palp: Yes Soft to palpation, Yes Tenderness to palpation present (GI), No Guarding due to palpation present (GI) and No Rebound tenderness present Auscultation: normal bowel sounds Neuro: General: patient oriented x3, no focal motor deficits and No confusion Extrem: General: no calf tenderness and no edema Objective Data Vital Signs Vital Signs: Vital Signs - 24 hr 04/21/20 12:00 04/21/20 13:48 04/21/20 13:53 Temperature 36.8 C Pulse Rate 59 L 67 66 Respiratory Rate 16 Blood Pressure 155/62 H 148/62 H Pulse Oximetry 04/21/20 14:00 04/21/20 14:10 04/21/20 14:30 Temperature Pulse Rate 67 63 51 L Respiratory Rate Blood Pressure 156/65 H 111/40 L 90/42 L Pulse Oximetry 04/21/20 14:45 04/21/20 15:00 04/21/20 15:15 Temperature Pulse Rate 59 L 64 62 Respiratory Rate Blood Pressure 111/50 L 120/60 139/55 L Pulse Oximetry 04/21/20 15:30 04/21/20 15:45 04/21/20 16:00 Temperature Pulse Rate 63 66 64 Respiratory Rate Blood Pressure 130/55 L 127/55 L 130/54 L Pulse Oximetry 04/21/20 16:32 04/21/20 16:45 04/21/20 19:40 Temperature 37.1 C 37.1 C Pulse Rate 62 67 70 Respiratory Rate 18 18 Blood Pressure 130/55 L 164/63 H 144/36 H Pulse Oximetry 94 04/21/20 20:00 04/21/20 20:24 04/21/20 20:30 Temperature Pulse Rate 64 66 Respiratory Rate Blood Pressure Pulse Oximetry 94 04/22/20 00:00
[2020-04-22 11:46] LABS: Glucose Point of Care 195 (65-105)
[2020-04-22] MEDS: SODIUM CHLORIDE 0.9% IV 500 ML 30 ML IV CONT (13:30)
--- NOTE | 2020-04-22 14:22 | WPDHPUPDATE1 ---
History and Physical Update Update Date/Time: 04/22/20 14:22 History and Physical has been reviewed, including an updated exam of the patient. There are NO changes in the patient's condition. Risks, benefits, and alternatives have been discussed and questions answered. Patient agrees to proceed with procedure.
--- NOTE | 2020-04-22 14:27 | WPDANESEPPF ---
Anes - Initial Pre Proc Eval Procedure: Operation Date: 04/22/20 13:30 Proposed Procedures p PLACEMENT OF TUNNELED CENTRAL VENOUS CATHETER UNDER FLOUROSCOPY - Marco Antonio Her MD Date/Time: 04/22/20 14:27 Surgeon: Juan Ramon Rhodes MD Pre Op Diagnosis: CHF, NSTEMI Patient Data Age: 75 Gender: F Height: 5 ft 7 in Weight: 77.5 kg Last Vital Signs Temp 98.9 F 04/22/20 13:17 Pulse 64 04/22/20 13:17 Resp 20 04/22/20 13:17 BP 177/55 H 04/22/20 13:17 Pulse Ox 97 04/22/20 13:17 Allergies Allergy/AdvReac Type Severity Reaction Status Date / Time Sulfa (Sulfonamide Allergy Mild RASH Verified 08/26/19 09:26 Antibiotics) Home Medications Medication Instructions Recorded Confirmed Type aspirin 81 mg tablet,delayed 81 mg PO DAILY 02/21/19 04/17/20 History release cholecalciferol (vitamin D3) 50 2,000 unit PO DAILY 02/21/19 04/17/20 History mcg (2,000 unit) tablet multivit with 1 tablet PO DAILY 06/25/19 04/17/20 History teklsvwh-xdcm-XO-lutein 8 mg iron-400 mcg-300 mcg tablet omega-3 fatty acids 1,000 mg 1,000 mg PO DAILY 06/25/19 04/17/20 History capsule pen needle, diabetic 32 gauge x #100 each 06/25/19 04/17/20 History 1/6 rosuvastatin 40 mg tablet 40 mg PO DAILY 06/25/19 04/17/20 History amlodipine 10 mg tablet 10 mg PO DAILY #90 tablet 08/26/19 04/17/20 Rx carvedilol 12.5 mg tablet 12.5 mg PO Q12H 08/26/19 04/17/20 History guanfacine 1 mg tablet 1 mg PO DAILY 08/26/19 04/17/20 History isosorbide mononitrate 30 mg 60 mg PO DAILY #180 tablet 11/14/19 04/17/20 Rx tablet,extended release 24 hr furosemide 80 mg tablet 80 mg PO QAM #45 tablet 12/22/19 04/17/20 Rx insulin detemir U-100 100 unit/mL See Rx Instructions SUB-Q .COMPLEX 01/15/20 04/17/20 Rx (3 mL) subcutaneous pen #15 ml blood sugar diagnostic #300 each 02/12/20 04/17/20 Rx hydralazine 25 mg tablet 75 mg PO TID #270 tablet 02/12/20 04/17/20 Rx levothyroxine 75 mcg tablet See Rx Instructions .ROUTE 03/08/20 04/17/20 Rx .COMPLEX #90 tablet clopidogrel 75 mg tablet See Rx Instructions .ROUTE 03/24/20 04/17/20 Rx .COMPLEX #90 tablet Laboratory Tests 04/21/20 04/21/20 04/22/20 17:43 21:05 05:35 WBC RBC Hgb Hct MCV MCH MCHC RDW Plt Count MPV Immature Gran % (Auto) Neut % (Auto) Lymph % (Auto) [place] % (Auto) Eos % (Auto) Baso % (Auto) Lymph # (Auto) [place] # (Auto) Eos # (Auto) Baso # (Auto) Abs Immat Gran (auto) Absolute Neuts (auto) Absolute Nucleated RBC Nucleated RBC % Sodium 137 mmol/L mmol/L (137-145) Potassium 3.1 mmol/L L mmol/L (3.4-5.0) Chloride 94 mmol/L L mmol/L (98-107) Carbon Dioxide 29 mmol/L mmol/L (22-30) Anion Gap 14 mmol/L mmol/L (8-16) BUN 55 mg/dL H D mg/dL (7-17) Creatinine 5.10 mg/dL H mg/dL (0.7-1.0) Estim Creat Clear Calc 8 ml/min ml/min Estimated GFR 8 L (59 - ) Glucose 163 mg/dL H mg/dL (65-105) POC Capillary Glucose 143 mg/dl H mg/dl 232 mg/dl H mg/dl (65-105) (65-105) Calcium 9.4 mg/dL mg/dL (8.4-10.2) Phosphorus 3.4 mg/dL mg/dL (2.5-4.5) Albumin 4.7 g/dL g/dL (3.5-5.1) 04/22/20 04/22/20 04/22/20 05:35 08:55 11:32 WBC 19.6 K/mm3 H K/mm3 (4.5-10.0) RBC 2.98 M/mm3 L M/mm3 (4.2-5.4) Hgb 8.6 g/dL L g/dL (12.0-15.0) Hct 26.1 % L % (37.0-47.0) MCV 87.6 fl fl (80-100) MCH 28.9 pg pg (26-34) MCHC 33.0 g/dl g/dl (32-36) RDW 15.1 % H % (11.5-14.5) Plt Count 163 k/mm3 k/mm3 (150-375) MPV 9.9 fl fl (7.4-10.
[2020-04-22] MEDS: ceFAZolin 2 GM/D5W 50 ML 2 GM/50 ML BAG IVPB (14:56)
[2020-04-22] MEDS: LIDO 1%/EPINEPHRINE 1:100,000 50 ML VIAL INFILTRATE (14:56)
--- NOTE | 2020-04-22 15:14 | SUR.OPER ---
Duraflow 2 15.7Vx16sm Exp 2021-11-06. Lot [id number]. Right side.
--- NOTE | 2020-04-22 15:31 | SUR.OPER ---
FINAL FLUSH WITH HEPARIN 10,000 UNITS 10ML VIAL/ 2.5ML PER EACH PORT (2).
--- NOTE | 2020-04-22 15:46 | SUR.OPER ---
ODOM END OF SURGERY 50ML URINE CLOUDY YELLOW.
--- NOTE | 2020-04-22 15:52 | SUR.OPER ---
CHEST X RAY NEEDED IN PACU AND PACU INFORMED.
--- NOTE | 2020-04-22 15:55 | PM.PROC ---
Procedure Note - Detailed Date of procedure: 04/22/20 Pre-op diagnosis: Acute on chronic renal failure, inadequate venous Acute on chronic renal failure, inadequate venous access Post-op diagnosis: same Procedure performed: Removal of right internal jugular Luis catheter, placement tunneled Duraflow central venous catheter under fluoroscopy Description of procedure: The patient was taken to surgery and placed in a supine position. The dressings were removed from the right internal jugular Luis catheter and the sutures were removed as well. The catheter was removed and using sterile 4x4s, pressure was held over the site. No bleeding occurred. We then prepped and draped the right neck and right upper chest in the usual fashion with ChloraPrep. Local anesthetic was infiltrated over the right internal jugular vein. Higher in the neck, the right internal jugular vein was cannulated and a guidewire was passed into the superior vena cava. The position of the guidewire was documented by fluoroscopy. I then used fluoroscopy and measured the general course of the dura flow catheter. A 32 cm length catheter was chosen. Counter incisions to tunnel the catheter were marked on the right upper chest and right neck. Local anesthetic was infiltrated in the area of each of the counter incisions. Incisions were then made. The dura flow catheter was then tunneled from the right upper chest through the various counter incisions until it was brought out the same incision as the guidewire was exiting the internal jugular vein. I then passed serial dilators over the guidewire under fluoroscopy. The largest dilator with the sheath was then passed over the guidewire and into the superior vena cava. Its position was documented with fluoroscopy. The introducer and guidewire were then removed. The dura flow catheter end was passed into the sheath and passed the length of the sheath into the distal superior vena cava. The sheath was then removed. I manipulated the catheter to ensure the curve in the upper neck was smooth and without any kinks. Fluoroscopy was used to document this from 2 different angles. The curve looked quite good with no evidence of kinking or narrowing. I then checked the ports of the dura flow catheter. Both ports aspirated blood easily and flushed well with heparin. Final flush was passed into each of the ports. I then closed all the counter incisions with subcuticular interrupted 4 0 Vicryl suture. The dura flow catheter was sutured to the skin with 3 0 nylon suture. The counter incisions were dressed with Exofin surgical adhesive. The exit site was dressed with sterile transparent Tegaderm dressing. The patient was awakened and taken to recovery in good condition. I reviewed her chest x-ray on the portable machine and it looked fine. Anesthesia: MAC and local (0.5% Marcaine) Surgeon: Marco Antonio Her MD Building Maintenance Supervisor: Kris CHAMPION Estimated blood loss (mL): 10 Drains: No Packing: No Pathology: none sent Complications: None Condition: stable Disposition: PACU Findings: Dura Flow catheter tip in distal SVC at the right atrial junction. No kinks in the tract or curve in the neck. No pneumothorax by chest x-ray.
[2020-04-22 16:26] LABS: Glucose Point of Care 138 (65-105)
--- NOTE | 2020-04-22 17:19 | ECG_ITS ---
Measurements Intervals [place] Rate: 57 P: 55 ND: 184 QRS: 24 QRSD: 112 T: 24 QT: 475 QTc: 465 Interpretive Statements SINUS BRADYCARDIA LEFT VENTRICULAR HYPERTROPHY AND ST-T CHANGE BASELINE ARTIFACT- V5 BORDERLINE ECG Electronically Signed On 04-22-2020 19:21:47 SENIOR [employer] ADF DEVELOPER by Floyd Multani D.O.
[2020-04-22 17:22] LABS: Glucose Point of Care 166 (65-105)
--- NOTE | 2020-04-22 17:47 | PM.IMPN ---
Progress Note: A&P Assessment and Plan (1) Acute on chronic anemia: Code(s): D64.9 - Anemia, unspecified Status: Acute Assessment and Plan: Currently on Epo Transfuse 2 units 04/19 and hemoglobin 8.6 today (2) Acute on chronic diastolic (congestive) heart failure: Code(s): I50.33 - Acute on chronic diastolic (congestive) heart failure Status: Chronic Assessment and Plan: Stable with Coreg and Controlling fluid with dialysis (3) Chronic renal failure, stage 4 (severe): Code(s): N18.4 - Chronic kidney disease, stage 4 (severe) Status: Inactive Assessment and Plan: Requiring HD next session 04/23 tunnel cath to be placed today (4) Acute non-ST elevation myocardial infarction (NSTEMI): Code(s): I21.4 - Non-ST elevation (NSTEMI) myocardial infarction Status: Acute Assessment and Plan: Probable troponin leak secondary to volume overload (5) Anemia due to stage 4 chronic kidney disease: Code(s): N18.4 - Chronic kidney disease, stage 4 (severe); D63.1 - Anemia in chronic kidney disease Status: Acute Assessment and Plan: Epo and as above transfusion as needed, hgb stable (6) Hx of non-ST elevation myocardial infarction (NSTEMI): Code(s): I25.2 - Old myocardial infarction Status: Acute Assessment and Plan: Stable (7) Acute respiratory failure: Qualifiers: Respiratory failure complication: hypoxia Qualified Code(s): J96.01 - Acute respiratory failure with hypoxia Code(s): J96.00 - Acute respiratory failure, unspecified whether with hypoxia or hypercapnia Status: Acute Assessment and Plan: Resolved thought secondary to congestive heart failure and or possible pneumonia. Extubated 04/14. Continue PT sat 97% ra now Subjective Date/time seen: 04/22/20 17:47 Interval history: Date of visit 04/22 77-year-old hypertensive type 2 diabetic admitted with acute respiratory failure secondary to volume overload and diastolic heart failure. Mechanically ventilated within 24 hours after admission for some 48 hours and extubated 04/14 Did much better with physical therapy today but still feels rather weak. Denies dizziness or significant shortness of breath. No chest pain. No palpitations. Transfused 04/19, . to have tunnel cath placed today Exam Narrative: Exam Narrative: Blood pressure 130/76 pulse 80 and regular sat 94% on RA afebrile Sitting up in bed with no specific complaints Lungs clear with faint crackle Left post base CV regular rate rhythm Abdomen soft nontender Extremities is trace edema of any Neuro alert pleasant cooperative no focal deficits Objective Data Vital Signs Vital Signs: Vital Signs - 24 hr 04/21/20 19:40 04/21/20 20:00 04/21/20 20:24 Temperature 37.1 C Pulse Rate 70 64 66 Respiratory Rate 18 Blood Pressure 144/36 H Pulse Oximetry 94 04/21/20 20:30 04/22/20 00:00 04/22/20 04:00 Temperature Pulse Rate 69 67 Respiratory Rate Blood Pressure Pulse Oximetry 94 04/22/20 06:07 04/22/20 08:00 04/22/20 08:59 Temperature 36.6 C Pulse Rate 69 64 76 Respiratory Rate 17 Blood Pressure 158/44 H Pulse Oximetry 94 04/22/20 12:00 04/22/20 13:17 04/22/20 15:50 Temperature 37.2 C 36.1 C L Pulse Rate 61 64 54 L Respiratory Rate 20 18 Blood Pressure 177/55 H 114/52 L Pulse Oximetry 97 100 04/22/20 16:05 04/22/20 16:20 04/22/20 16:35 Temperature 36.1 C L Pulse Rate 49 L 57 L 57 L Respiratory Rate 18 18 19 Blood Pressure 157/64 H 160/47 H 131/61 Pulse Oximetry 100 97 93 04/22/20 16:50 04/22/20 17:14 Temperature 36.0 C L Pulse Rate 57 L 56 L Respiratory Rate 20 16 Blood Pressure 133/60 136/55 L Pulse Oximetry 93 97 Intake/Output Intake/Output: Intake & Output 04/19/20 04/20/20 04/21/20 04/22/20 23:59 23:59 23:59 23:59 Intake Total 1290 1020 900 380 Output Total 5314 414 2296 50 Balance -1835
--- NOTE | 2020-04-22 19:45 | PC.NURSE ---
Left message for patients spouse to update on current medical condition.
--- NOTE | 2020-04-22 19:55 | PC.NURSE ---
1710 Dr. Phillips notified of patient left arm deficit. PACU called immediately after to see if they noticed any left sided weakness. They did not. Full neuro assessment done, EKG, and CT of the brain ordered. Patient in good spirits.
--- NOTE | 2020-04-22 19:57 | PC.NURSE ---
Spoke with Tramaine. Made him aware of new symptoms and stroke. had a lot of questions and I answered as many as possible. said he talked to the surgeon and the nurses down in surgery and they said everything was fine. Wants to know what we are going to do about it. I let him know that she will get the full work up with speech/neuro consult/PT/OT, etc. Would like to call when she wakes up. Was pretty upset, I tried to answer all questions to the best of my ability.
[2020-04-22] MEDS: SODIUM CHLORIDE 0.9% IV 250 ML 999 ML IV CONT (20:46)
[2020-04-22 22:09] LABS: Glucose Point of Care 221 (65-105)
[2020-04-23] VITALS (27 sets, daily range): BP systolic 101–193; BP diastolic 42–86; PULSE 64–75; RESP 12–25; TEMP 36.2–37.2; O2SAT 91–96
[2020-04-23] MEDS: ALBUMIN HUMAN 25% 12.5 GM/50ML 50 ML IVPB ×2 (00:25→05:21)
[2020-04-23] MEDS: HEPARIN SODIUM 5,000 UNITS/ML VIAL 5000 UNITS SUB-Q ×4 (00:25→21:34)
[2020-04-23] MEDS: ONDANSETRON INJ 4 MG/2 ML VIAL IV PUSH (02:45)
[2020-04-23] MEDS: SODIUM CHLORIDE 0.9% IV 250 ML 999 ML IV CONT (02:45)
--- NOTE | 2020-04-23 07:46 | WPDANESPN ---
Anes - Prog Note Post-Op Date/Time: 04/23/20 07:46 Cardiovascular status: normal Respiratory status: normal Airway patency: baseline Mental status: baseline Post-Op hydration status: normal Vital Signs: Last Vital Signs Temp 36.8 C 04/23/20 05:18 Pulse 68 04/23/20 05:18 Resp 16 04/23/20 05:18 BP 101/77 04/23/20 05:18 Pulse Ox 92 04/23/20 05:18 Pain Score (VAS): 0 I/O: Intake & Output 04/22/20 04/22/20 04/23/20 15:59 23:59 07:59 Intake Total 50 580 350 Output Total 50 50 Balance 50 530 300 Laboratory Tests 04/22/20 05:35 04/22/20 05:35 04/22/20 04/22/20 04/22/20 08:55 11:32 16:21 POC Capillary Glucose 177 H 195 H 138 H 04/22/20 04/22/20 17:15 22:04 POC Capillary Glucose 166 H 221 H Post-procedural complaints: none Patient Feedback: Patient satisfied with anesthetic care.
[2020-04-23 08:11] LABS: Basophils Absolute Auto 0.1 K/mm3 (0.0-0.1); Basophils Percent Auto 0.4 % (0.2-1.2); Eosinophils Absolute Auto 0.7 K/mm3 (0-0.3); Hematocrit 26.1 % (37.0-47.0); Hemoglobin 8.8 g/dL (12.0-15.0); Immature Granulocyte Absolute 0.85 K/mm3 (0.00-0.031); Immature Granulocyte Percent A 3.8 % (0-0.5); Lymphocytes Percent Auto 5.8 % (18.3-44.2); Mean Corpuscular HGB Conc 33.7 g/dl (32-36); Mean Corpuscular Volume 86.1 fl (80-100); Mean Platelet Volume 9.7 fl (7.4-10.4); Monocytes Absolute Auto 1.6 K/mm3 (0.1-0.6); Monocytes Percent Auto 7.2 % (2.6-8.5); Neutrophils Absolute Auto 17.9 K/mm3 (1.3-6.7); Neutrophils Percent Auto 79.8 % (45.5-73.1); Nucleated Red Blood Cells Perc 0.1 % (0.0-0.2); Platelet Count Result 162 k/mm3 (150-375); Red Blood Count 3.03 M/mm3 (4.2-5.4); Red Cell Distribution Width 15.2 % (11.5-14.5); White Blood Count 22.4 K/mm3 (4.5-10.0)
--- NOTE | 2020-04-23 08:15 | PC.NURSE ---
Off unit to dialysis.
[2020-04-23 08:25] LABS: Anion Gap 18 mmol/L (8-16); Blood Urea Nitrogen 77 mg/dL (7-17); Calcium 9.6 mg/dL (8.4-10.2); Carbon Dioxide 21 mmol/L (22-30); Chloride 99 mmol/L (98-107); Estimated CRCL calculation 6 ml/min; Estimated Glomerular Filt Rate 6; Glucose 162 mg/dL (65-105); Sodium 138 mmol/L (137-145)
[2020-04-23 08:25] LABS: Glucose Point of Care 165 (65-105)
[2020-04-23] MEDS: EPOETIN ALFA-EPBX 10,000 UNITS/ML VIAL 10000 UNITS IV PUSH (10:38)
--- NOTE | 2020-04-23 10:52 | PCPTNOTE ---
Patient out of room for dialysis, unable to be seen for PT this A.M. RN reports patient has had a change in medical condition since yesterday. PT will re-evaluate patient's change in medical condition when patient is available.
--- NOTE | 2020-04-23 12:18 | P.PNNP_ITS ---
Progress Note: A&P Assessment and Plan (1) End stage renal disease: Code(s): N18.6 - End stage renal disease Status: Chronic Assessment and Plan: * decline in kidney function noted with acute illness * initiated on renal replacement therapy/dialysis (04/16/20) * unfortunately, given her advanced CKD at baseline, I suspect the patient is dialysis dependent (ESRD) * HD today and will continue outpatient hemodialysis on discharge * s/p tunneled HD catheter placement (04/22/20) * etiology of ESRD is due to hypertension, diabetes, and vascular disease * ultimate plan is to transition to outpatient peritoneal dialysis (2) CVA (cerebral vascular accident): Code(s): I63.9 - Cerebral infarction, unspecified Status: Acute Assessment and Plan: * based on clinic exam * CT of head negative * MRI of brain(?) * carotid duplex ordered * Neurology consult? (3) Essential (primary) hypertension: Code(s): I10 - Essential (primary) hypertension Status: Acute Assessment and Plan: * reasonable control * follow hemodynamics * fluid removal will likely help maintain BP (4) Acute on chronic diastolic (congestive) heart failure: Code(s): I50.33 - Acute on chronic diastolic (congestive) heart failure Status: Chronic Assessment and Plan: * positive troponins noted * Cardiology following * fluid removal with HD to acheive euvolemia (5) Anemia: Code(s): D64.9 - Anemia, unspecified Status: Chronic Assessment and Plan: * due to a combination of GIULIANA, CKD, and acute illness * PRBC transfusion on 04/19/20 * continue Epogen with HD * follow trend of H/H (6) Type 2 diabetes mellitus without complication: Qualifiers: Diabetes mellitus emergency medical service manager insulin use: with emergency medical service manager use Qualified Code(s): E11.9 - Type 2 diabetes mellitus without complications; Z79.4 - pipe buffer (current) use of insulin Code(s): E11.9 - Type 2 diabetes mellitus without complications Status: Chronic Assessment and Plan: * follow accu-Cheks * on sliding-scale insulin Will continue to follow. Subjective Date/time seen: 04/23/20 12:18 Tolerating dialysis at the time of my visit (seen on treatment at 12:00PM); unable to see patient yesterday as she was out of her room for procedure (tunneled HD catheter placement); tolerated procedure but it was noted after return to her room flaccidity in left arm and left facial droop concerning for right CVA -- no tpA administered since unclear when neruological event occurred; currently, he main complaint is that she is hungry (has been NPO but has apparently passed her swallow evaluation). Exam Narrative: Exam Narrative: General: WD/WN female in NAD Heart: normal S1 and S2; no rub Lungs: decreased at bases Abdomen: soft, nontender, nondistended, positive bowel sounds Extremities: no cyanosis or clubbing; trace edema; left sided weakness Skin: warm and intact Objective Data Vital Signs Vital Signs: Vital Signs Temp Pulse Resp BP Pulse Ox 04/23/20 12:12 71 102/53 L 04/23/20 12:00 67 119/52 L 04/23/20 11:45 67 134/60 04/23/20 11:30 70 150/67 H 04/23/20 11:15 70 165/68 H 04/23/20 11:00 64 148/67 H 04/23/20 10:45 65 163/71 H 04/23/20 10:30 65 173/66 H 04/23/20 10:15 67 165/69 H 04/23/20 10:00 70 152/68 H
--- NOTE | 2020-04-23 12:18 | PM.PNNEP ---
Progress Note: A&P Assessment and Plan (1) End stage renal disease: Code(s): N18.6 - End stage renal disease Status: Chronic Assessment and Plan: decline in kidney function noted with acute illness initiated on renal replacement therapy/dialysis (04/16/20) unfortunately, given her advanced CKD at baseline, I suspect the patient is dialysis dependent (ESRD) HD today and will continue outpatient hemodialysis on discharge s/p tunneled HD catheter placement (04/22/20) etiology of ESRD is due to hypertension, diabetes, and vascular disease ultimate plan is to transition to outpatient peritoneal dialysis (2) CVA (cerebral vascular accident): Code(s): I63.9 - Cerebral infarction, unspecified Status: Acute Assessment and Plan: based on clinic exam CT of head negative MRI of brain(?) carotid duplex ordered Neurology consult? (3) Essential (primary) hypertension: Code(s): I10 - Essential (primary) hypertension Status: Acute Assessment and Plan: reasonable control follow hemodynamics fluid removal will likely help maintain BP (4) Acute on chronic diastolic (congestive) heart failure: Code(s): I50.33 - Acute on chronic diastolic (congestive) heart failure Status: Chronic Assessment and Plan: positive troponins noted Cardiology following fluid removal with HD to acheive euvolemia (5) Anemia: Code(s): D64.9 - Anemia, unspecified Status: Chronic Assessment and Plan: due to a combination of GIULIANA, CKD, and acute illness PRBC transfusion on 04/19/20 continue Epogen with HD follow trend of H/H (6) Type 2 diabetes mellitus without complication: Qualifiers: Diabetes mellitus detention insulin use: with buttermaker continuous churn use Qualified Code(s): E11.9 - Type 2 diabetes mellitus without complications; Z79.4 - continuous churn buttermaker (current) use of insulin Code(s): E11.9 - Type 2 diabetes mellitus without complications Status: Chronic Assessment and Plan: follow accu-Cheks on sliding-scale insulin Will continue to follow. Subjective Date/time seen: 04/23/20 12:18 Tolerating dialysis at the time of my visit (seen on treatment at 12:00PM); unable to see patient yesterday as she was out of her room for procedure (tunneled HD catheter placement); tolerated procedure but it was noted after return to her room flaccidity in left arm and left facial droop concerning for right CVA -- no tpA administered since unclear when neruological event occurred; currently, he main complaint is that she is hungry (has been NPO but has apparently passed her swallow evaluation). Exam Narrative: Exam Narrative: General: WD/WN female in NAD Heart: normal S1 and S2; no rub Lungs: decreased at bases Abdomen: soft, nontender, nondistended, positive bowel sounds Extremities: no cyanosis or clubbing; trace edema; left sided weakness Skin: warm and intact Objective Data Vital Signs Vital Signs: Vital Signs Temp Pulse Resp BP Pulse Ox 04/23/20 12:12 71 102/53 L 04/23/20 12:00 67 119/52 L 04/23/20 11:45 67 134/60 04/23/20 11:30 70 150/67 H 04/23/20 11:15 70 165/68 H 04/23/20 11:00 64 148/67 H 04/23/20 10:45 65 163/71 H 04/23/20 10:30 65 173/66 H 04/23/20 10:15 67 165/69 H 04/23/20 10:00 70 152/68 H 04/23/20 09:45 68 124/61 04/23/20 09:30 68 152/65 H 04/23/20 09:15 69 146/62 H 04/23/20 09:00 66 185/79 H 04/23/20 08:45 72 193/86 H 04/23/20 08:41 73 192/78 H 04/23/20 08:30 36.4 C L 73 16 192/84 H 04/23/20 05:18 36.8 C 68 16 101/77 92 04/23/20 04:00 69 04/23/20 00:15 36.3 C L 65 16 104/42 L 91 04/23/20 00:00 67 04/22/20 21:22 36.3 C L 66 18 120/44 L 96 04/22/20 20:00 60 04/22/20 18:45 35.8 C L 55 L 16 105/36 L 95 04/22/20 18:15 36.0 C L 59 L 18 149/45 H 96 04/22/20 18:00 3
[2020-04-23] MEDS: HEPARIN SODIUM 1,000 UNITS/ML VIAL 1000 UNITS IV PUSH (12:29)
--- NOTE | 2020-04-23 12:33 | PCSTNOTE ---
Please refer to the Bedside Swallow Evaluation in the EMR. Please note, silent aspiration cannot be ruled out at bedside.
[2020-04-23 13:03] LABS: Glucose Point of Care 163 (65-105)
[2020-04-23] MEDS: CLOPIDOGREL BISULFATE 75 MG TABLET PO (13:16)
[2020-04-23] MEDS: ROSUVASTATIN 10 MG TABLET 40 MG PO (13:16)
[2020-04-23] MEDS: ATORVASTATIN 40 MG TABLET PO (13:16)
[2020-04-23] MEDS: PANTOPRAZOLE SODIUM IV 40 MG VIAL IV PUSH ×2 (13:16→21:34)
[2020-04-23] MEDS: ASPIRIN 81 MG ENTERIC TABLET PO (13:16)
[2020-04-23] MEDS: DOXYCYCLINE HYCLATE 100 MG TABLET PO ×2 (13:16→21:34)
--- NOTE | 2020-04-23 16:05 | PM.IMPN ---
Progress Note: A&P Assessment and Plan (1) Acute on chronic anemia: Code(s): D64.9 - Anemia, unspecified Status: Acute Assessment and Plan: Currently on Epo Transfuse 2 units 04/19 and hemoglobin 8.8 today (2) Acute on chronic diastolic (congestive) heart failure: Code(s): I50.33 - Acute on chronic diastolic (congestive) heart failure Status: Chronic Assessment and Plan: Stable with Coreg and Controlling fluid with dialysis echo EF 60-65% with mild pul htn, and grade 1 DD (3) Chronic renal failure, stage 4 (severe): Code(s): N18.4 - Chronic kidney disease, stage 4 (severe) Status: Inactive Assessment and Plan: Requiring HD now Sunday tunnel cath to be placed 04/22 (4) Acute non-ST elevation myocardial infarction (NSTEMI): Code(s): I21.4 - Non-ST elevation (NSTEMI) myocardial infarction Status: Acute Assessment and Plan: Probable troponin leak secondary to volume overload (5) Anemia due to stage 4 chronic kidney disease: Code(s): N18.4 - Chronic kidney disease, stage 4 (severe); D63.1 - Anemia in chronic kidney disease Status: Acute Assessment and Plan: Epo and as above transfusion as needed, hgb stable (6) Hx of non-ST elevation myocardial infarction (NSTEMI): Code(s): I25.2 - Old myocardial infarction Status: Acute Assessment and Plan: Stable (7) Acute respiratory failure: Qualifiers: Respiratory failure complication: hypoxia Qualified Code(s): J96.01 - Acute respiratory failure with hypoxia Code(s): J96.00 - Acute respiratory failure, unspecified whether with hypoxia or hypercapnia Status: Acute Assessment and Plan: Resolved thought secondary to congestive heart failure and or possible pneumonia. Extubated 04/14. Continue PT sat 97% ra now (8) CVA (cerebral vascular accident): Code(s): I63.9 - Cerebral infarction, unspecified Status: Acute Assessment and Plan: Right cerebral infarction with left hemiparesis sometime during her after her placement of tunnel catheter. Deemed not be a candidate for tPA per stroke team zulma Coronado. 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 Aspirin, Plavix, blood pressure control with initial permissive hypertension and statin added PT/OT/speech rx Additional Plan The patient will likely need at least 2 nights of inpatient medical therapy for her acute heart failure, acute respiratory failure, and likely NSTEMI. Date of service was April 11, 2020 at approximately 10:00 p.m.. Subjective Date/time seen: 04/23/20 16:05 Interval history: Date of visit 04/23 77-year-old hypertensive type 2 diabetic admitted with acute respiratory failure secondary to volume overload and diastolic heart failure. Mechanically ventilated within 24 hours after admission for some 48 hours and extubated 04/14 . Denies dizziness or significant shortness of breath. No chest pain. No palpitations. Transfused 04/19, . to have tunnel cath placed 04/22 and when she returned from surgery nurse noticed flaccid left side . Noncontrast CT no hemorrhage but discussed with stroke team zulma Coronado and not a candidate for tPA Exam Narrative: Exam Narrative: Blood pressure 146/66 pulse 80 and regular sat 94% on RA afebrile Lying in bed receiving dialysis at this time Pupils equal reactive sclera anicteric Neck supple no adenopathy and I hear no bruits Lungs clear CV regular rate rhythm Abdomen soft nontender Extremities no edema Neuro alert pleasant cooperative with flaccid left arm and leg with some neglect as expected Flexor responses are upgoing on the left appear to be downgoing on the right Const: General: comfortable, no acute distress, alert, awake, Physically
--- NOTE | 2020-04-23 16:32 | PM.PNCARD ---
Progress Note: A&P Assessment and Plan (1) CVA (cerebral vascular accident): Code(s): I63.9 - Cerebral infarction, unspecified Status: Acute Assessment and Plan: Very unfortunate. Was not deemed a tPA candidate for stroke team at [facility]. Carotid Doppler 50-69% stenosis left internal carotid artery, not involved. Unclear etiology, deficits 1st noted after return from IJ catheter placement 04/22/2020 with left-sided hemiparesis. 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 Repeat studies revealed slight improvement but persistence of the echodensity. 2D echocardiogram 04/12/2020 did not reveal mobile echodensity. No documented evidence of atrial fibrillation/flutter on telemetry available. Discussed the recommendations to consider RICHIE for further clarification, patient respectfully states she would prefer not to pursue at this time. She had been maintained on clopidogrel and I had resumed aspirin 04/21/2020. Continue telemetry. Continue statin therapy. (2) Acute on chronic renal failure: Code(s): N17.9 - Acute kidney failure, unspecified; N18.9 - Chronic kidney disease, unspecified Status: Acute Assessment and Plan: Appreciate nephrology involvement. Hemodialysis further recommendations. Hemodialysis today. (3) Coronary disease: Code(s): I25.10 - Atherosclerotic heart disease of [place] coronary artery without angina pectoris Status: Acute Assessment and Plan: History of PCI. Continue medical therapy including aspirin and clopidogrel. Aspirin reduced from 325 to 81 mg. (4) Elevated troponin: Code(s): R77.8 - Other specified abnormalities of plasma proteins Status: Acute Assessment and Plan: Type 2 infarct not consistent with acute coronary syndrome. Troponins but without significant rise or fall. This could be related to underlying renal failure/heart failure/BP. Continue aspirin, clopidogrel, beta-antonio (5) Acute on chronic diastolic (congestive) heart failure: Code(s): I50.33 - Acute on chronic diastolic (congestive) heart failure Status: Chronic Assessment and Plan: Heart failure with preserved ejection fraction likely secondary to uncontrolled hypertension as well as severe progressive renal failure and anemia. Volume management per Nephrology with hemodialysis. Patient is euvolemic. (6) Hypertension associated with diabetes: Code(s): E11.59 - Type 2 diabetes mellitus with other circulatory complications; I15.2 - Hypertension secondary to endocrine disorders Status: Inactive Assessment and Plan: Continue Coreg 12.5 mg b.i.d. BP remains fairly elevated. (7) Anemia: Code(s): D64.9 - Anemia, unspecified Status: Acute Assessment and Plan: Improving after transfusion with HD yesterday. EPO. Follow H&H closely. Transfuse as needed hemoglobin less than 7. Subjective Date/time seen: Date of service: 04/23/20 16:32 Interval history: Follow-up visit in this 75-year-old female with: Significant volume overload and end-stage renal disease. History of diastolic left ventricular noncompliance Yesterday afternoon patient developed reported left upper limb and lower extremity hemiparesis, facial droop, dysarthria. CT head negative. Patient denies chest pain shortness of breath. Patient states he feels well otherwise and will continue to fight. No palpitations, no documented atrial tachyarrhythmias on telemetry available. Hemodialysis today. Review of Systems Review of Systems: All systems reviewed & are unremarkable except as noted in HPI and below Constitutional: Constitutional: Denies chills, Denies excessive sweating and Denies headache(s) Eyes: Eyes: Denies blurry vision ENT: Denies headache(s), Denies lip swelling, Denies epistaxis and Denies neck pain Cardiovasc
[2020-04-23 16:38] LABS: Glucose Point of Care 212 (65-105)
[2020-04-23] MEDS: INSULIN ASPART (*BKC) 100 UNITS/ML SUB-Q (16:38)
[2020-04-23] MEDS: HYDROcodone/acetaminophen (*CRX) 5-325 MG TABLET 1 TAB PO (17:20)
[2020-04-23 23:39] LABS: Glucose Point of Care 179 (65-105)
[2020-04-24] VITALS: PULSE 68
[2020-04-24 04:00] VITALS: PULSE 69
[2020-04-24] MEDS: HEPARIN SODIUM 5,000 UNITS/ML VIAL 5000 UNITS SUB-Q ×3 (05:36→21:33)
[2020-04-24] MEDS: LEVOTHYROXINE SODIUM 75 MCG TABLET PO (05:36)
[2020-04-24 06:22] LABS: Basophils Absolute Auto 0.2 K/mm3 (0.0-0.1); Basophils Percent Auto 0.8 % (0.2-1.2); Eosinophils Absolute Auto 0.8 K/mm3 (0-0.3); Eosinophils Percent Auto 3.1 % (0-4.4); Hemoglobin 9.5 g/dL (12.0-15.0); Immature Granulocyte Absolute 0.94 K/mm3 (0.00-0.031); Immature Granulocyte Percent A 3.8 % (0-0.5); Lymphocytes Percent Auto 8.8 % (18.3-44.2); Mean Corpuscular HGB Conc 31.7 g/dl (32-36); Mean Corpuscular Hemoglobin 28.2 pg (26-34); Mean Platelet Volume 9.9 fl (7.4-10.4); Monocytes Absolute Auto 2.3 K/mm3 (0.1-0.6); Monocytes Percent Auto 9.2 % (2.6-8.5); Neutrophils Absolute Auto 18.6 K/mm3 (1.3-6.7); Neutrophils Percent Auto 74.3 % (45.5-73.1); Nucleated Red Blood Cells Perc 0.1 % (0.0-0.2); Platelet Count Result 193 k/mm3 (150-375); Red Blood Count 3.37 M/mm3 (4.2-5.4); Red Cell Distribution Width 15.6 % (11.5-14.5)
[2020-04-24 07:37] LABS: Anisocytosis 1+ (NORMAL); Ovalocytes 1+ (NORMAL); Platelet Estimate Adequate (Adequate); Poikilocytosis 1+ (NORMAL)
[2020-04-24 07:42] LABS: Glucose Point of Care 176 (65-105)
[2020-04-24 07:53] LABS: Anion Gap 15 mmol/L (8-16); Blood Urea Nitrogen 43 mg/dL (7-17); Calcium 10.4 mg/dL (8.4-10.2); Carbon Dioxide 28 mmol/L (22-30); Chloride 95 mmol/L (98-107); Estimated CRCL calculation 10 ml/min; Estimated Glomerular Filt Rate 10; Glucose 170 mg/dL (65-105); Phosphorus 4.1 mg/dL (2.5-4.5); Potassium 4.3 mmol/L (3.4-5.0); Sodium 138 mmol/L (137-145)
[2020-04-24 08:00] VITALS: PULSE 66; PULSE 69; RESP 12; O2SAT 96
[2020-04-24] MEDS: PANTOPRAZOLE SODIUM IV 40 MG VIAL IV PUSH ×2 (09:15→21:33)
[2020-04-24] MEDS: ROSUVASTATIN 10 MG TABLET 40 MG PO (09:15)
[2020-04-24] MEDS: ATORVASTATIN 40 MG TABLET PO (09:16)
[2020-04-24] MEDS: DOXYCYCLINE HYCLATE 100 MG TABLET PO ×2 (09:16→21:33)
[2020-04-24] MEDS: CLOPIDOGREL BISULFATE 75 MG TABLET PO (09:16)
[2020-04-24] MEDS: ASPIRIN 81 MG ENTERIC TABLET PO (09:16)
--- NOTE | 2020-04-24 11:21 | PM.PNCARD ---
Progress Note: A&P Assessment and Plan (1) CVA (cerebral vascular accident): Code(s): I63.9 - Cerebral infarction, unspecified Status: Acute Assessment and Plan: Very unfortunate. Was not deemed a tPA candidate for stroke team at [facility]. Carotid Doppler 50-69% stenosis left internal carotid artery, not involved. Unclear etiology, deficits 1st noted after return from IJ catheter placement 04/22/2020 with left-sided hemiparesis. 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 Repeat studies revealed slight improvement but persistence of the echodensity. 2D echocardiogram 04/12/2020 did not reveal mobile echodensity. No documented evidence of atrial fibrillation/flutter on telemetry available. Discussed the recommendations to consider RICHIE for further clarification, patient respectfully states she would prefer not to pursue at this time. Continue present meds (2) Acute on chronic renal failure: Code(s): N17.9 - Acute kidney failure, unspecified; N18.9 - Chronic kidney disease, unspecified Status: Acute Assessment and Plan: Appreciate nephrology involvement. Hemodialysis further recommendations. Hemodialysis today. (3) Coronary disease: Code(s): I25.10 - Atherosclerotic heart disease of [place] coronary artery without angina pectoris Status: Acute Assessment and Plan: History of PCI. Continue medical therapy including aspirin and clopidogrel. . (4) Elevated troponin: Code(s): R77.8 - Other specified abnormalities of plasma proteins Status: Acute Assessment and Plan: Type 2 infarct not consistent with acute coronary syndrome. Troponins but without significant rise or fall. This could be related to underlying renal failure/heart failure/BP. Continue aspirin, clopidogrel, beta-antonio (5) Acute on chronic diastolic (congestive) heart failure: Code(s): I50.33 - Acute on chronic diastolic (congestive) heart failure Status: Chronic Assessment and Plan: Heart failure with preserved ejection fraction likely secondary to uncontrolled hypertension as well as severe progressive renal failure and anemia. Volume management per Nephrology with hemodialysis. Patient is euvolemic. (6) Hypertension associated with diabetes: Code(s): E11.59 - Type 2 diabetes mellitus with other circulatory complications; I15.2 - Hypertension secondary to endocrine disorders Status: Inactive Assessment and Plan: Continue Coreg 12.5 mg b.i.d. BP remains fairly elevated. (7) Anemia: Code(s): D64.9 - Anemia, unspecified Status: Acute Assessment and Plan: Improving after transfusion with HD yesterday. EPO. Follow H&H closely. Transfuse as needed hemoglobin less than 7. DC Botello catheter. DC panel monitor Subjective Date/time seen: 04/24/20 11:21 Interval history: Follow-up visit in this 75-year-old female with: Significant volume overload and end-stage renal disease. History of diastolic left ventricular noncompliance Date of service 04/24/2020: Going through physical therapy at this point. No chest pain or shortness of breath Review of Systems Review of Systems: All systems reviewed & are unremarkable except as noted in HPI and below Constitutional: Constitutional: Denies chills, Denies excessive sweating and Denies headache(s) Eyes: Eyes: Denies blurry vision ENT: Denies headache(s), Denies lip swelling, Denies epistaxis and Denies neck pain Cardiovascular: Cardiovascular: Denies chest pain, Reports leg edema and Reports dyspnea Respiratory: Respiratory: Reports dyspnea Gastrointestinal: Gastrointestinal: Denies abdominal pain Genitourinary: Genitourinary: Denies flank pain Musculoskeletal: Musculoskeletal: Denies neck pain Integumentary/Breasts: Skin/Breast: Denies dry skin Neurolog
[2020-04-24 11:27] LABS: Glucose Point of Care 268 (65-105)
[2020-04-24] MEDS: INSULIN ASPART (*BKC) 100 UNITS/ML SUB-Q (12:00)
--- NOTE | 2020-04-24 12:26 | P.PNNP_ITS ---
Progress Note: A&P Assessment and Plan (1) End stage renal disease: Code(s): N18.6 - End stage renal disease Status: Chronic Assessment and Plan: * decline in kidney function noted with acute illness * initiated on renal replacement therapy/dialysis (04/16/20) * unfortunately, given her advanced CKD at baseline, I suspect the patient is dialysis dependent (ESRD) * HD yesterday and will continue outpatient hemodialysis on discharge * s/p tunneled HD catheter placement (04/22/20) * etiology of ESRD is due to hypertension, diabetes, and vascular disease * ultimate plan is to transition to peritoneal dialysis as an outpatient * plan next HD Sunday or Sunday depending on outpatient HD schedule (2) CVA (cerebral vascular accident): Code(s): I63.9 - Cerebral infarction, unspecified Status: Acute Assessment and Plan: * based on clinic exam - perhaps more a TIA * CT of head negative * MRI of brain needed (?) * carotid duplex results noted * Cardiology recommendations noted (3) Essential (primary) hypertension: Code(s): I10 - Essential (primary) hypertension Status: Acute Assessment and Plan: * reasonable control * follow hemodynamics * fluid removal will likely help maintain BP (4) Acute on chronic diastolic (congestive) heart failure: Code(s): I50.33 - Acute on chronic diastolic (congestive) heart failure Status: Chronic Assessment and Plan: * positive troponins noted * Cardiology following * fluid removal with HD to acheive euvolemia (5) Anemia: Code(s): D64.9 - Anemia, unspecified Status: Chronic Assessment and Plan: * due to a combination of GIULIANA, CKD, and acute illness * PRBC transfusion on 04/19/20 * continue Epogen with HD * follow trend of H/H (6) Type 2 diabetes mellitus without complication: Qualifiers: Diabetes mellitus terminal superintendent insulin use: with terminal superintendent use Qualified Code(s): E11.9 - Type 2 diabetes mellitus without complications; Z79.4 - superintendent terminal (current) use of insulin Code(s): E11.9 - Type 2 diabetes mellitus without complications Status: Chronic Assessment and Plan: * follow accu-Cheks * on sliding-scale insulin Will continue to follow. Subjective Date/time seen: 04/24/20 12:26 Tolerated dialysis yesterday without any issues or problems; working with PT/OT as tolerated; states she is able to move her left arm much better today; no events/issues overnight or earlier this AM. Exam 2 Narrative: Exam Narrative: General: WD/WN female in NAD Heart: normal S1 and S2; no rub Lungs: decreased at bases Abdomen: soft, nontender, nondistended, positive bowel sounds Extremities: no cyanosis or clubbing; trace edema; left sided weakness Skin: no rash or nodules Objective Data Vital Signs Vital Signs: Vital Signs Temp Pulse Resp BP Pulse Ox 04/24/20 08:00 66 12 96 04/24/20 04:00 69 04/24/20 00:00 68 04/23/20 20:00 68 04/23/20 19:46 37.2 C 67 12 138/76 96 04/23/20 16:00 75 04/23/20 13:00 36.2 C L 68 25 H 166/44 H 93 Intake/Output Intake/Output: Intake & Output 04/21/20 04/22/20 04/23/20 04/24/20 23:59 23:59 23:59 23:59 Intake Total 900 730 410 0 Output Total 2296 100 2675 20 Balance -1396 630 -2265 -20
--- NOTE | 2020-04-24 12:26 | PM.PNNEP ---
Progress Note: A&P Assessment and Plan (1) End stage renal disease: Code(s): N18.6 - End stage renal disease Status: Chronic Assessment and Plan: decline in kidney function noted with acute illness initiated on renal replacement therapy/dialysis (04/16/20) unfortunately, given her advanced CKD at baseline, I suspect the patient is dialysis dependent (ESRD) HD yesterday and will continue outpatient hemodialysis on discharge s/p tunneled HD catheter placement (04/22/20) etiology of ESRD is due to hypertension, diabetes, and vascular disease ultimate plan is to transition to peritoneal dialysis as an outpatient plan next HD Sunday or Sunday depending on outpatient HD schedule (2) CVA (cerebral vascular accident): Code(s): I63.9 - Cerebral infarction, unspecified Status: Acute Assessment and Plan: based on clinic exam - perhaps more a TIA CT of head negative MRI of brain needed (?) carotid duplex results noted Cardiology recommendations noted (3) Essential (primary) hypertension: Code(s): I10 - Essential (primary) hypertension Status: Acute Assessment and Plan: reasonable control follow hemodynamics fluid removal will likely help maintain BP (4) Acute on chronic diastolic (congestive) heart failure: Code(s): I50.33 - Acute on chronic diastolic (congestive) heart failure Status: Chronic Assessment and Plan: positive troponins noted Cardiology following fluid removal with HD to acheive euvolemia (5) Anemia: Code(s): D64.9 - Anemia, unspecified Status: Chronic Assessment and Plan: due to a combination of GIULIANA, CKD, and acute illness PRBC transfusion on 04/19/20 continue Epogen with HD follow trend of H/H (6) Type 2 diabetes mellitus without complication: Qualifiers: Diabetes mellitus long-term insulin use: with intermediate teacher use Qualified Code(s): E11.9 - Type 2 diabetes mellitus without complications; Z79.4 - terminal computer operator (current) use of insulin Code(s): E11.9 - Type 2 diabetes mellitus without complications Status: Chronic Assessment and Plan: follow accu-Cheks on sliding-scale insulin Will continue to follow. Subjective Date/time seen: 04/24/20 12:26 Tolerated dialysis yesterday without any issues or problems; working with PT/OT as tolerated; states she is able to move her left arm much better today; no events/issues overnight or earlier this AM. Exam Narrative: Exam Narrative: General: WD/WN female in NAD Heart: normal S1 and S2; no rub Lungs: decreased at bases Abdomen: soft, nontender, nondistended, positive bowel sounds Extremities: no cyanosis or clubbing; trace edema; left sided weakness Skin: no rash or nodules Objective Data Vital Signs Vital Signs: Vital Signs Temp Pulse Resp BP Pulse Ox 04/24/20 08:00 66 12 96 04/24/20 04:00 69 04/24/20 00:00 68 04/23/20 20:00 68 04/23/20 19:46 37.2 C 67 12 138/76 96 04/23/20 16:00 75 04/23/20 13:00 36.2 C L 68 25 H 166/44 H 93 Intake/Output Intake/Output: Intake & Output 04/21/20 04/22/20 04/23/20 04/24/20 23:59 23:59 23:59 23:59 Intake Total 900 730 410 0 Output Total 2296 100 2675 20 Balance -1396 630 -2265 -20 Meds/Results Medications: Active Medications Generic Name Dose Route Start Last Admin Trade Name Freq PRN Reason Stop Dose Admin Acetaminophen 500 mg 04/22/20 16:55 Acetaminophen 500 Mg Tablet PO Q6H PRN Mild Pain (1-3) or Fever Hydrocodone Bitart/Acetaminophen 1 tab 04/22/20 16:55 04/23/20 17:20 Hydrocodone/Acetaminophen (*Crx) 5-325 Mg Tablet PO 1 tab Q6H PRN Administration Pain Rated 4-6 Aspirin 81 mg 04/21/20 09:00 04/24/20 09:16 Aspirin 81 Mg Enteric Tablet PO 81 mg QAM OSIEL Administration Atorvastatin Calcium 40 mg 04/23/20 09:00 04/24/20 09:16 Atorvastatin 40 Mg Tablet PO 40
[2020-04-24 14:00] VITALS: BP 130/38; PULSE 64; RESP 16; TEMP 36.8; O2SAT 98
--- NOTE | 2020-04-24 15:10 | PM.IMPN ---
Progress Note: A&P Assessment and Plan (1) Acute on chronic anemia: Code(s): D64.9 - Anemia, unspecified Status: Acute Assessment and Plan: Currently on Epo Transfuse 2 units 04/19 and hemoglobin 9.5 today WBC still up ?epo too (2) Acute on chronic diastolic (congestive) heart failure: Code(s): I50.33 - Acute on chronic diastolic (congestive) heart failure Status: Chronic Assessment and Plan: Stable with Coreg and Controlling fluid with dialysis echo EF 60-65% with mild pul htn, and grade 1 DD (3) Chronic renal failure, stage 4 (severe): Code(s): N18.4 - Chronic kidney disease, stage 4 (severe) Status: Inactive Assessment and Plan: Requiring HD now Sunday tunnel cath placed 04/22 (4) Acute non-ST elevation myocardial infarction (NSTEMI): Code(s): I21.4 - Non-ST elevation (NSTEMI) myocardial infarction Status: Acute Assessment and Plan: Probable troponin leak secondary to volume overload (5) Anemia due to stage 4 chronic kidney disease: Code(s): N18.4 - Chronic kidney disease, stage 4 (severe); D63.1 - Anemia in chronic kidney disease Status: Acute Assessment and Plan: Epo and as above transfusion as needed, hgb stable (6) Hx of non-ST elevation myocardial infarction (NSTEMI): Code(s): I25.2 - Old myocardial infarction Status: Acute Assessment and Plan: Stable (7) Acute respiratory failure: Qualifiers: Respiratory failure complication: hypoxia Qualified Code(s): J96.01 - Acute respiratory failure with hypoxia Code(s): J96.00 - Acute respiratory failure, unspecified whether with hypoxia or hypercapnia Status: Acute Assessment and Plan: Resolved thought secondary to congestive heart failure and or possible pneumonia. Extubated 04/14. Continue PT sat 97% ra now (8) CVA (cerebral vascular accident): Code(s): I63.9 - Cerebral infarction, unspecified Status: Acute Assessment and Plan: Right cerebral infarction with left hemiparesis sometime during or after her placement of tunnel catheter. Deemed not be a candidate for tPA per stroke team zulma Coronado. 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 Aspirin, Plavix, blood pressure control with initial permissive hypertension and statin added PT/OT/speech rx regaining movement of L upper extremity today. continue pt and CT or MR 04/26 Subjective Date/time seen: 04/24/20 15:10 Interval history: Date of visit 04/24 77-year-old hypertensive type 2 diabetic admitted with acute respiratory failure secondary to volume overload and diastolic heart failure. Mechanically ventilated within 24 hours after admission for some 48 hours and extubated 04/14 . Denies dizziness or significant shortness of breath. No chest pain. No palpitations. Transfused 04/19, . to have tunnel cath placed 04/22 and when she returned from surgery nurse noticed flaccid left side . Noncontrast CT no hemorrhage but discussed with stroke team at [place] and not a candidate for tPA feels better and can move L arm again some today Exam Narrative: Exam Narrative: Blood pressure 136/76 pulse 66 and regular sat 96% on RA afebrile Lying in bed and feeling better Pupils equal reactive sclera anicteric Neck supple no adenopathy and I hear no bruits Lungs clear CV regular rate rhythm Abdomen soft nontender Extremities no edema Neuro alert pleasant cooperative can raise L arm now with drift and weak hand document manager can raise left leg Objective Data Vital Signs Vital Signs: Vital Signs - 24 hr 04/23/20 16:00 04/23/20 19:46 04/23/20 20:00 Temperature 37.2 C Pulse Rate 75 67 68 Respiratory Rate 12 Blood Pressure 138/76 Pulse Oximetry 96 04/24/20 00:00
[2020-04-24 18:46] LABS: SARS-CoV-2 RNA PCR Negative
[2020-04-24 20:31] VITALS: BP 186/52; PULSE 65; RESP 16; TEMP 36.6; O2SAT 96
[2020-04-24 20:39] LABS: Glucose Point of Care 197 (65-105)
[2020-04-24 23:02] LABS: Glucose Point of Care 147 (65-105)
[2020-04-25 05:23] VITALS: BP 151/42; PULSE 61; RESP 12; TEMP 36.4; O2SAT 96
[2020-04-25 06:01] LABS: Basophils Absolute Auto 0.2 K/mm3 (0.0-0.1); Eosinophils Absolute Auto 0.9 K/mm3 (0-0.3); Eosinophils Percent Auto 4.2 % (0-4.4); Hematocrit 29.2 % (37.0-47.0); Hemoglobin 9.6 g/dL (12.0-15.0); Immature Granulocyte Absolute 0.75 K/mm3 (0.00-0.031); Immature Granulocyte Percent A 3.4 % (0-0.5); Lymphocytes Absolute Auto 2.04 K/mm3 (0.9-3.2); Lymphocytes Percent Auto 9.2 % (18.3-44.2); Mean Corpuscular HGB Conc 32.9 g/dl (32-36); Mean Corpuscular Hemoglobin 28.8 pg (26-34); Mean Corpuscular Volume 87.7 fl (80-100); Mean Platelet Volume 9.9 fl (7.4-10.4); Monocytes Absolute Auto 2.1 K/mm3 (0.1-0.6); Monocytes Percent Auto 9.7 % (2.6-8.5); Neutrophils Percent Auto 72.5 % (45.5-73.1); Platelet Count Result 202 k/mm3 (150-375); Red Blood Count 3.33 M/mm3 (4.2-5.4); Red Cell Distribution Width 15.5 % (11.5-14.5); White Blood Count 22.1 K/mm3 (4.5-10.0)
[2020-04-25] MEDS: HEPARIN SODIUM 5,000 UNITS/ML VIAL 5000 UNITS SUB-Q ×3 (06:06→21:00)
[2020-04-25] MEDS: LEVOTHYROXINE SODIUM 75 MCG TABLET PO (06:06)
[2020-04-25 06:30] LABS: Anion Gap 16 mmol/L (8-16); Blood Urea Nitrogen 64 mg/dL (7-17); Calcium 10.1 mg/dL (8.4-10.2); Carbon Dioxide 23 mmol/L (22-30); Chloride 95 mmol/L (98-107); Estimated CRCL calculation 6 ml/min; Estimated Glomerular Filt Rate 6; Glucose 150 mg/dL (65-105); Potassium 3.9 mmol/L (3.4-5.0); Sodium 134 mmol/L (137-145)
[2020-04-25 06:55] LABS: Platelet Estimate Adequate (Adequate)
[2020-04-25 06:56] LABS: Anisocytosis 1+ (NORMAL); Ovalocytes 1+ (NORMAL)
[2020-04-25 08:00] VITALS: PULSE 61; RESP 12; O2SAT 96
[2020-04-25] MEDS: PANTOPRAZOLE SODIUM IV 40 MG VIAL IV PUSH ×2 (08:01→20:59)
[2020-04-25] MEDS: DOXYCYCLINE HYCLATE 100 MG TABLET PO ×2 (08:02→20:58)
[2020-04-25] MEDS: ROSUVASTATIN 10 MG TABLET 40 MG PO (08:02)
[2020-04-25] MEDS: ASPIRIN 81 MG ENTERIC TABLET PO (08:02)
[2020-04-25] MEDS: CLOPIDOGREL BISULFATE 75 MG TABLET PO (08:02)
[2020-04-25] MEDS: ATORVASTATIN 40 MG TABLET PO (08:02)
--- NOTE | 2020-04-25 09:30 | PM.PNCARD ---
Progress Note: A&P Assessment and Plan (1) CVA (cerebral vascular accident): Code(s): I63.9 - Cerebral infarction, unspecified Status: Acute Assessment and Plan: Very unfortunate. Was not deemed a tPA candidate for stroke team at [place]. Carotid Doppler 50-69% stenosis left internal carotid artery, not involved. Unclear etiology, deficits 1st noted after return from IJ catheter placement 04/22/2020 with left-sided hemiparesis. 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 Repeat studies revealed slight improvement but persistence of the echodensity. 2D echocardiogram 04/12/2020 did not reveal mobile echodensity. No documented evidence of atrial fibrillation/flutter on telemetry available. Discussed the recommendations to consider RICHIE for further clarification, patient respectfully states she would prefer not to pursue at this time. Continue present meds (2) Acute on chronic renal failure: Code(s): N17.9 - Acute kidney failure, unspecified; N18.9 - Chronic kidney disease, unspecified Status: Acute Assessment and Plan: Appreciate nephrology involvement. Hemodialysis further recommendations. Hemodialysis today. (3) Coronary disease: Code(s): I25.10 - Atherosclerotic heart disease of [place] coronary artery without angina pectoris Status: Acute Assessment and Plan: History of PCI. Continue medical therapy including aspirin and clopidogrel. . (4) Elevated troponin: Code(s): R77.8 - Other specified abnormalities of plasma proteins Status: Acute Assessment and Plan: Type 2 infarct not consistent with acute coronary syndrome. Troponins but without significant rise or fall. This could be related to underlying renal failure/heart failure/BP. Continue aspirin, clopidogrel, beta-antonio (5) Acute on chronic diastolic (congestive) heart failure: Code(s): I50.33 - Acute on chronic diastolic (congestive) heart failure Status: Chronic Assessment and Plan: Heart failure with preserved ejection fraction likely secondary to uncontrolled hypertension as well as severe progressive renal failure and anemia. Volume management per Nephrology with hemodialysis. Patient is euvolemic. (6) Hypertension associated with diabetes: Code(s): E11.59 - Type 2 diabetes mellitus with other circulatory complications; I15.2 - Hypertension secondary to endocrine disorders Status: Inactive Assessment and Plan: Continue Coreg 12.5 mg b.i.d. BP remains fairly elevated. She was on amlodipine at home. Will resume but at a lower dose for now. Will start her at 5 mg daily (7) Anemia: Code(s): D64.9 - Anemia, unspecified Status: Acute Assessment and Plan: Improving after transfusion with HD yesterday. EPO. Follow H&H closely. Transfuse as needed hemoglobin less than 7. Subjective Date/time seen: 04/25/20 09:30 Interval history: Follow-up visit in this 75-year-old female with: Significant volume overload and end-stage renal disease. History of diastolic left ventricular noncompliance Date of service 04/25/2020: Neurologically much improved. No chest pain or shortness of breath Review of Systems Review of Systems: All systems reviewed & are unremarkable except as noted in HPI and below Constitutional: Constitutional: Denies chills, Denies excessive sweating and Denies headache(s) Eyes: Eyes: Denies blurry vision ENT: Denies headache(s), Denies lip swelling, Denies epistaxis and Denies neck pain Cardiovascular: Cardiovascular: Denies chest pain, Reports leg edema and Reports dyspnea Respiratory: Respiratory: Reports dyspnea Gastrointestinal: Gastrointestinal: Denies abdominal pain Genitourinary: Genitourinary: Denies flank pain Musculoskeletal: Musculoskeletal: Denies neck pain Integumentary/B
--- NOTE | 2020-04-25 10:50 | PCOTNOTE ---
Attempted to see patient this am, however patient off floor for testing at this time.
[2020-04-25 12:00] VITALS: BP 124/53
[2020-04-25] MEDS: amLODIPine BESYLATE 5 MG TABLET PO (12:02)
--- NOTE | 2020-04-25 12:27 | P.PNNP_ITS ---
Progress Note: A&P Assessment and Plan (1) End stage renal disease: Code(s): N18.6 - End stage renal disease Status: Chronic Assessment and Plan: * decline in kidney function noted with acute illness * initiated on renal replacement therapy/dialysis (04/16/20) * unfortunately, given her advanced CKD at baseline, she is dialysis dependent (ESRD) now * HD on Sunday (04/23/20) and will continue outpatient hemodialysis on discharge * s/p tunneled HD catheter placement (04/22/20) * etiology of ESRD is due to hypertension, diabetes, and vascular disease * ultimate plan is to transition to peritoneal dialysis as an outpatient * plan next HD on Sunday since her outpatient HD schedule will be T/T/S (2) CVA (cerebral vascular accident): Code(s): I63.9 - Cerebral infarction, unspecified Status: Acute Assessment and Plan: * based on clinic exam - perhaps more a TIA given ongoing recovery * CT of head negative * MRI of brain needed (?) * carotid duplex results noted * Cardiology recommendations noted (3) Essential (primary) hypertension: Code(s): I10 - Essential (primary) hypertension Status: Acute Assessment and Plan: * reasonable control * follow hemodynamics * fluid removal will likely help maintain BP (4) Acute on chronic diastolic (congestive) heart failure: Code(s): I50.33 - Acute on chronic diastolic (congestive) heart failure Status: Chronic Assessment and Plan: * positive troponins noted * Cardiology following * fluid removal with HD to acheive euvolemia (5) Anemia: Code(s): D64.9 - Anemia, unspecified Status: Chronic Assessment and Plan: * due to a combination of GIULIANA, CKD, and acute illness * PRBC transfusion on 04/19/20 * continue Epogen with HD * follow trend of H/H (6) Type 2 diabetes mellitus without complication: Qualifiers: Diabetes mellitus fci insulin use: with fci use Qualified Code(s): E11.9 - Type 2 diabetes mellitus without complications; Z79.4 - roughener (current) use of insulin Code(s): E11.9 - Type 2 diabetes mellitus without complications Status: Chronic Assessment and Plan: * follow accu-Cheks * on sliding-scale insulin Will continue to follow. Subjective Date/time seen: 04/25/20 12:27 Has been able to move her left arm more and more each days since Sunday (04/23/20) in spite of concern for possible CVA/stroke; overall, she seems to be doing reasonably well; no other acute complaints or concerns voiced at this time; no apparent distress noted. Exam Narrative: Exam Narrative: General: WD/WN female in NAD Heart: normal S1 and S2; no rub Lungs: decreased at bases Abdomen: soft, nontender, nondistended, positive bowel sounds Extremities: no cyanosis or clubbing; trace edema; left sided weakness which has improved significantly Skin: warm and dry Objective Data Vital Signs Vital Signs: Vital Signs Temp Pulse Resp BP Pulse Ox 04/25/20 12:00 124/53 L 04/25/20 05:23 36.4 C 61 12 151/42 H 96 04/24/20 20:31 36.6 C 65 16 186/52 H 96 Intake/Output Intake/Output: Intake & Output 04/22/20 04/23/20 04/24/20 04/25/20 23:59 23:59 23:59 23:59 Intake Total 730 410 640 500 Output Total 100 2675 45 50 Balance 269 -4809 923 450 Meds/Results Medications:
--- NOTE | 2020-04-25 12:27 | PM.PNNEP ---
Progress Note: A&P Assessment and Plan (1) End stage renal disease: Code(s): N18.6 - End stage renal disease Status: Chronic Assessment and Plan: decline in kidney function noted with acute illness initiated on renal replacement therapy/dialysis (04/16/20) unfortunately, given her advanced CKD at baseline, she is dialysis dependent (ESRD) now HD on Sunday (04/23/20) and will continue outpatient hemodialysis on discharge s/p tunneled HD catheter placement (04/22/20) etiology of ESRD is due to hypertension, diabetes, and vascular disease ultimate plan is to transition to peritoneal dialysis as an outpatient plan next HD on Sunday since her outpatient HD schedule will be T/T/S (2) CVA (cerebral vascular accident): Code(s): I63.9 - Cerebral infarction, unspecified Status: Acute Assessment and Plan: based on clinic exam - perhaps more a TIA given ongoing recovery CT of head negative MRI of brain needed (?) carotid duplex results noted Cardiology recommendations noted (3) Essential (primary) hypertension: Code(s): I10 - Essential (primary) hypertension Status: Acute Assessment and Plan: reasonable control follow hemodynamics fluid removal will likely help maintain BP (4) Acute on chronic diastolic (congestive) heart failure: Code(s): I50.33 - Acute on chronic diastolic (congestive) heart failure Status: Chronic Assessment and Plan: positive troponins noted Cardiology following fluid removal with HD to acheive euvolemia (5) Anemia: Code(s): D64.9 - Anemia, unspecified Status: Chronic Assessment and Plan: due to a combination of GIULIANA, CKD, and acute illness PRBC transfusion on 04/19/20 continue Epogen with HD follow trend of H/H (6) Type 2 diabetes mellitus without complication: Qualifiers: Diabetes mellitus tank terminal gauger insulin use: with tank terminal gauger use Qualified Code(s): E11.9 - Type 2 diabetes mellitus without complications; Z79.4 - terminal manager (current) use of insulin Code(s): E11.9 - Type 2 diabetes mellitus without complications Status: Chronic Assessment and Plan: follow accu-Cheks on sliding-scale insulin Will continue to follow. Subjective Date/time seen: 04/25/20 12:27 Has been able to move her left arm more and more each days since Sunday (04/23/20) in spite of concern for possible CVA/stroke; overall, she seems to be doing reasonably well; no other acute complaints or concerns voiced at this time; no apparent distress noted. Exam Narrative: Exam Narrative: General: WD/WN female in NAD Heart: normal S1 and S2; no rub Lungs: decreased at bases Abdomen: soft, nontender, nondistended, positive bowel sounds Extremities: no cyanosis or clubbing; trace edema; left sided weakness which has improved significantly Skin: warm and dry Objective Data Vital Signs Vital Signs: Vital Signs Temp Pulse Resp BP Pulse Ox 04/25/20 12:00 124/53 L 04/25/20 05:23 36.4 C 61 12 151/42 H 96 04/24/20 20:31 36.6 C 65 16 186/52 H 96 Intake/Output Intake/Output: Intake & Output 04/22/20 04/23/20 04/24/20 04/25/20 23:59 23:59 23:59 23:59 Intake Total 730 410 640 500 Output Total 100 2675 45 50 Balance 630 -2265 595 450 Meds/Results Medications: Active Medications Generic Name Dose Route Start Last Admin Trade Name Freq PRN Reason Stop Dose Admin Acetaminophen 500 mg 04/22/20 16:55 Acetaminophen 500 Mg Tablet PO Q6H PRN Mild Pain (1-3) or Fever Hydrocodone Bitart/Acetaminophen 1 tab 04/22/20 16:55 04/23/20 17:20 Hydrocodone/Acetaminophen (*Crx) 5-325 Mg Tablet PO 1 tab Q6H PRN Administration Pain Rated 4-6 Amlodipine Besylate 5 mg 04/25/20 09:35 04/25/20 12:02 Amlodipine Besylate 5 Mg Tablet PO 5 mg QAM OSIEL Administration Aspirin 81 mg 04/21/20 09:00 04/25/20 08:02 Aspirin 81 Mg Enteric Tab
[2020-04-25 13:46] LABS: Glucose Point of Care 182 (65-105)
--- NOTE | 2020-04-25 15:00 | PM.IMPN ---
Progress Note: A&P Assessment and Plan (1) Acute on chronic anemia: Code(s): D64.9 - Anemia, unspecified Status: Acute Assessment and Plan: Currently on Epo Transfuse 2 units 04/19 and hemoglobin 9.5 today WBC still up ?epo too (2) Acute on chronic diastolic (congestive) heart failure: Code(s): I50.33 - Acute on chronic diastolic (congestive) heart failure Status: Chronic Assessment and Plan: Stable with Coreg and Controlling fluid with dialysis echo EF 60-65% with mild pul htn, and grade 1 DD (3) Chronic renal failure, stage 4 (severe): Code(s): N18.4 - Chronic kidney disease, stage 4 (severe) Status: Inactive Assessment and Plan: Requiring HD now Sunday tunnel cath placed 04/22 (4) Acute non-ST elevation myocardial infarction (NSTEMI): Code(s): I21.4 - Non-ST elevation (NSTEMI) myocardial infarction Status: Acute Assessment and Plan: Probable troponin leak secondary to volume overload (5) Anemia due to stage 4 chronic kidney disease: Code(s): N18.4 - Chronic kidney disease, stage 4 (severe); D63.1 - Anemia in chronic kidney disease Status: Acute Assessment and Plan: Epo and as above transfusion as needed, hgb stable (6) Hx of non-ST elevation myocardial infarction (NSTEMI): Code(s): I25.2 - Old myocardial infarction Status: Acute Assessment and Plan: Stable (7) Acute respiratory failure: Qualifiers: Respiratory failure complication: hypoxia Qualified Code(s): J96.01 - Acute respiratory failure with hypoxia Code(s): J96.00 - Acute respiratory failure, unspecified whether with hypoxia or hypercapnia Status: Acute Assessment and Plan: Resolved thought secondary to congestive heart failure and or possible pneumonia. Extubated 04/14. Continue PT sat 97% ra now (8) CVA (cerebral vascular accident): Code(s): I63.9 - Cerebral infarction, unspecified Status: Acute Assessment and Plan: Right cerebral infarction with left hemiparesis sometime during or after her placement of tunnel catheter. Deemed not be a candidate for tPA per stroke team zulma Coronado. mri today no infarc so technicaly was TIA although lasted over [address] negative, EKG sinus rhythm, recent echo no source of emboli or valve abnormalities, repeat carotid Doppler revealed 50-69% occlusion of left internal carotid artery which is the opposite hemisphere of her infarction. Aspirin, Plavix, blood pressure control with initial permissive hypertension and statin added PT/OT/speech rx regaining movement of L upper extremity which continues to improve, MR today no acute infarc continue pt (9) Leukocytosis: Code(s): D72.829 - Elevated white blood cell count, unspecified Status: Acute Assessment and Plan: cxr clear 04/22 with no cough or fever, will check urine for culture also Subjective Date/time seen: 04/25/20 15:00 Interval history: Date of visit 04/25 77-year-old hypertensive type 2 diabetic admitted with acute respiratory failure secondary to volume overload and diastolic heart failure. Mechanically ventilated within 24 hours after admission for some 48 hours and extubated 04/14 . Denies dizziness or significant shortness of breath. No chest pain. No palpitations. Transfused 04/19, . had tunnel cath placed 04/22 and when she returned from surgery nurse noticed flaccid left side . Noncontrast CT no hemorrhage but discussed with stroke team at [place] and not a candidate for tPA feels better and can move L arm again some 04/24 and more today Exam Narrative: Exam Narrative: Blood pressure 130/42 pulse 64 and regular sat 96% on RA afebrile Lying in bed and feeling better Pupils equal reactive sclera anicteric Neck supple no adenopathy and I hear no bruits Lungs clear CV regular rate rhythm Abdomen soft nontender Extremities no edema Neuro alert pleasant
[2020-04-25 17:10] LABS: Glucose Point of Care 133 (65-105)
[2020-04-25 17:10] LABS: Glucose Point of Care 235 (65-105)
[2020-04-25] MEDS: INSULIN ASPART (*BKC) 100 UNITS/ML SUB-Q (17:12)
[2020-04-25 19:48] VITALS: BP 151/48; PULSE 64; RESP 16; TEMP 37.1; O2SAT 98
[2020-04-25 22:17] LABS: Glucose Point of Care 213 (65-105)
[2020-04-26 05:28] VITALS: BP 169/59; PULSE 68; RESP 16; TEMP 36.7; O2SAT 100
[2020-04-26] MEDS: HEPARIN SODIUM 5,000 UNITS/ML VIAL 5000 UNITS SUB-Q ×3 (05:32→21:01)
[2020-04-26] MEDS: LEVOTHYROXINE SODIUM 75 MCG TABLET PO (05:32)
[2020-04-26 06:05] LABS: Basophils Absolute Auto 0.2 K/mm3 (0.0-0.1); Basophils Percent Auto 0.8 % (0.2-1.2); Hematocrit 28.7 % (37.0-47.0); Hemoglobin 9.5 g/dL (12.0-15.0); Immature Granulocyte Percent A 2.1 % (0-0.5); Lymphocytes Absolute Auto 2.29 K/mm3 (0.9-3.2); Lymphocytes Percent Auto 11.9 % (18.3-44.2); Mean Corpuscular HGB Conc 33.1 g/dl (32-36); Mean Corpuscular Hemoglobin 28.6 pg (26-34); Mean Corpuscular Volume 86.4 fl (80-100); Mean Platelet Volume 10.1 fl (7.4-10.4); Monocytes Absolute Auto 1.6 K/mm3 (0.1-0.6); Monocytes Percent Auto 8.4 % (2.6-8.5); Neutrophils Absolute Auto 13.8 K/mm3 (1.3-6.7); Neutrophils Percent Auto 71.8 % (45.5-73.1); Platelet Count Result 207 k/mm3 (150-375); Red Blood Count 3.32 M/mm3 (4.2-5.4); Red Cell Distribution Width 15.2 % (11.5-14.5); White Blood Count 19.3 K/mm3 (4.5-10.0)
[2020-04-26 06:25] LABS: Albumin Level 4.4 g/dL (3.5-5.1); Anion Gap 21 mmol/L (8-16); Blood Urea Nitrogen 87 mg/dL (7-17); Calcium 9.8 mg/dL (8.4-10.2); Carbon Dioxide 20 mmol/L (22-30); Chloride 93 mmol/L (98-107); Estimated CRCL calculation 5 ml/min; Estimated Glomerular Filt Rate 5; Glucose 124 mg/dL (65-105); Phosphorus 7.3 mg/dL (2.5-4.5); Potassium 3.8 mmol/L (3.4-5.0); Sodium 134 mmol/L (137-145)
[2020-04-26] MEDS: hydrALAZINE HCL 20 MG/ML VIAL IV PUSH (06:28)
[2020-04-26 07:30] LABS: Glucose Point of Care 139 (65-105)
[2020-04-26] MEDS: DOXYCYCLINE HYCLATE 100 MG TABLET PO ×2 (09:10→21:01)
[2020-04-26] MEDS: ASPIRIN 81 MG ENTERIC TABLET PO (09:10)
[2020-04-26] MEDS: amLODIPine BESYLATE 5 MG TABLET PO (09:10)
[2020-04-26] MEDS: CLOPIDOGREL BISULFATE 75 MG TABLET PO (09:10)
[2020-04-26] MEDS: PANTOPRAZOLE SODIUM IV 40 MG VIAL IV PUSH ×2 (09:10→21:01)
[2020-04-26] MEDS: ROSUVASTATIN 10 MG TABLET 40 MG PO (10:00)
[2020-04-26 12:05] LABS: Glucose Point of Care 232 (65-105)
[2020-04-26] MEDS: INSULIN ASPART (*BKC) 100 UNITS/ML SUB-Q (12:13)
--- NOTE | 2020-04-26 14:20 | PCNFU ---
Nutrition Follow-Up Complete: Inadequate oral intake related to oral intubation as evidenced by NPO status. Goal: Patient to meet estimated nutritional needs. Progressing towards goal. We will continue current goal. Pt current nutrition is soft and bite sized, Level 6/Renal Dialysis diet. Last recorded weight is 78 kg, down from 87.7 kg on admit. Bowel Motility:+BM reported 04/23 Labs Reviewed:Glu 124,GFR 5,Na 134 Meds Noted:Crestor,Protonix,NovoLog,Heparin,Plavix Additional Notes: Nutrition follow up. Oral Intake has been fair. She is currently on a renal dialysis diet. Nepro once daily providing an additional 425 kcals and 19 gms protein. Monitoring: weight, labs, oral intake every 5 days.
--- NOTE | 2020-04-26 14:25 | P.PNNP_ITS ---
Progress Note: A&P Assessment and Plan (1) End stage renal disease: Code(s): N18.6 - End stage renal disease Status: Chronic Assessment and Plan: * decline in kidney function noted with acute illness * initiated on renal replacement therapy/dialysis (04/16/20) * now end-stage renal disease. * Will get dialysis again tomorrow. (2) CVA (cerebral vascular accident): Code(s): I63.9 - Cerebral infarction, unspecified Status: Acute Assessment and Plan: * based on clinic exam - perhaps more a TIA given ongoing recovery * CT of head negative * MRI of brain shows no acute infarct. Some lacunar infarcts. (3) Essential (primary) hypertension: Code(s): I10 - Essential (primary) hypertension Status: Acute Assessment and Plan: * reasonable control * follow hemodynamics * fluid removal will likely help maintain BP (4) Acute on chronic diastolic (congestive) heart failure: Code(s): I50.33 - Acute on chronic diastolic (congestive) heart failure Status: Chronic Assessment and Plan: * positive troponins noted * Cardiology following * Looks euvolemic right now. 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 Subjective Date/time seen: 04/26/20 14:25 Interval history: patient is feeling okay. Lying flat in bed. Hoping to be discharged soon. Left arm is better she says. Review of Systems Cardiovascular: Cardiovascular: Reports no additional cardiovascular complaints Respiratory: Respiratory: Reports no additional respiratory complaints Gastrointestinal: Gastrointestinal: Reports no additional gastrointestinal complaints Genitourinary: Genitourinary: Reports no additional female genitourinary complaints Exam Narrative: Exam Narrative: General: WD/WN female in NAD Heart: normal S1 and S2; no rub Lungs: decreased at bases Abdomen: soft, nontender, nondistended, positive bowel sounds Extremities: no cyanosis or clubbing; trace edema; left sided weakness which has improved significantly Skin: No rash Objective Data Vital Signs Vital Signs: Vital Signs - 24 hr 04/25/20 19:48 04/26/20 05:28 Temperature 37.1 C 36.7 C Pulse Rate 64 68 Respiratory Rate 16 16 Blood Pressure 151/48 H 169/59 H Pulse Oximetry 98 100 Intake/Output Intake/Output: Intake & Output 04/23/20 04/24/20 04/25/20 04/26/20 23:59 23:59 23:59 23:59 Intake Total 410 640 740 400 Output Total 2675 45 150 Balance -2265 595 590 400 Meds/Results Medications: Active Medications Generic Name Dose Route Start Last Admin
--- NOTE | 2020-04-26 14:25 | PM.PNNEP ---
Progress Note: A&P Assessment and Plan (1) End stage renal disease: Code(s): N18.6 - End stage renal disease Status: Chronic Assessment and Plan: decline in kidney function noted with acute illness initiated on renal replacement therapy/dialysis (04/16/20) now end-stage renal disease. Will get dialysis again tomorrow. (2) CVA (cerebral vascular accident): Code(s): I63.9 - Cerebral infarction, unspecified Status: Acute Assessment and Plan: based on clinic exam - perhaps more a TIA given ongoing recovery CT of head negative MRI of brain shows no acute infarct. Some lacunar infarcts. (3) Essential (primary) hypertension: Code(s): I10 - Essential (primary) hypertension Status: Acute Assessment and Plan: reasonable control follow hemodynamics fluid removal will likely help maintain BP (4) Acute on chronic diastolic (congestive) heart failure: Code(s): I50.33 - Acute on chronic diastolic (congestive) heart failure Status: Chronic Assessment and Plan: positive troponins noted Cardiology following Looks euvolemic right now. (5) Anemia: Code(s): D64.9 - Anemia, unspecified Status: Chronic Assessment and Plan: due to a combination of GIULIANA, CKD, and acute illness PRBC transfusion on 04/19/20 continue Epogen with HD follow trend of H/H (6) Type 2 diabetes mellitus without complication: Qualifiers: Diabetes mellitus long term care pharmacist insulin use: with usp use Qualified Code(s): E11.9 - Type 2 diabetes mellitus without complications; Z79.4 - computer terminal operator (current) use of insulin Code(s): E11.9 - Type 2 diabetes mellitus without complications Status: Chronic Assessment and Plan: follow accu-Cheks on sliding-scale insulin Will continue to follow. Subjective Date/time seen: 04/26/20 14:25 Interval history: patient is feeling okay. Lying flat in bed. Hoping to be discharged soon. Left arm is better she says. Review of Systems Cardiovascular: Cardiovascular: Reports no additional cardiovascular complaints Respiratory: Respiratory: Reports no additional respiratory complaints Gastrointestinal: Gastrointestinal: Reports no additional gastrointestinal complaints Genitourinary: Genitourinary: Reports no additional female genitourinary complaints Exam Narrative: Exam Narrative: General: WD/WN female in NAD Heart: normal S1 and S2; no rub Lungs: decreased at bases Abdomen: soft, nontender, nondistended, positive bowel sounds Extremities: no cyanosis or clubbing; trace edema; left sided weakness which has improved significantly Skin: No rash Objective Data Vital Signs Vital Signs: Vital Signs - 24 hr 04/25/20 19:48 04/26/20 05:28 Temperature 37.1 C 36.7 C Pulse Rate 64 68 Respiratory Rate 16 16 Blood Pressure 151/48 H 169/59 H Pulse Oximetry 98 100 Intake/Output Intake/Output: Intake & Output 04/23/20 04/24/20 04/25/20 04/26/20 23:59 23:59 23:59 23:59 Intake Total 410 640 740 400 Output Total 2675 45 150 Balance -2265 595 590 400 Meds/Results Medications: Active Medications Generic Name Dose Route Start Last Admin Trade Name Freq PRN Reason Stop Dose Admin Acetaminophen 500 mg 04/22/20 16:55 Acetaminophen 500 Mg Tablet PO Q6H PRN Mild Pain (1-3) or Fever Hydrocodone Bitart/Acetaminophen 1 tab 04/22/20 16:55 04/23/20 17:20 Hydrocodone/Acetaminophen (*Crx) 5-325 Mg Tablet PO 1 tab Q6H PRN Administration Pain Rated 4-6 Amlodipine Besylate 5 mg 04/25/20 09:35 04/26/20 09:10 Amlodipine Besylate 5 Mg Tablet PO 5 mg QAM OSIEL Administration Aspirin 81 mg 04/21/20 09:00 04/26/20 09:10 Aspirin 81 Mg Enteric Tablet PO 81 mg QAM OSIEL Administration Carvedilol 12.5 mg 04/14/20 21:00 04/22/20 21:22 Carvedilol 12.5 Mg Tablet PO 12.5 mg Q12HR OSILE Administration Clopi
--- NOTE | 2020-04-26 14:57 | PM.PNCARD ---
Progress Note: A&P Additional Plan 75-year-old female with: Picture of volume overload presented with worsening renal failure started on renal replacement therapy couple of weeks ago doing well clinically from that respect now. Unfortunately did have a CVA by clinical examination last week after placing her tunneled catheter. Clinically is improved. No cardiac reason the patient cannot be discharged to rehab facility. Mehran Baires MD [facility] Subjective Date/time seen: Date of service: 04/26/20 14:57 Interval history: Follow-up visit in this 75-year-old female with: Significant volume overload and end-stage renal disease. History of diastolic left ventricular noncompliance Date of service 04/26/2020: No cardiovascular symptoms or concerns. Exam Narrative: Exam Narrative: Apparent distress, comfortable alert and oriented x3. Breathing comfortably lying supine in bed. Const: General: comfortable; No confusion Orientation/consciousness: No confusion HENMT: General nose exam: Normal nares present Eyes: Sclera: abnormal sclerae Neck: Neck: no JVD Chest: Other: no chest wall deformities seen Resp: Effort & Inspection: normal respiratory effort Auscultation: no rales, no wheezes and diminished lung sounds Cardio: Rate: regular rate Rhythm: regular rhythm Heart sounds: Murmur heart sound present Urinary Catheter: Urinary Catheter: patent and draining Skin: General skin exam: normal color Other: Diffuse bruising, ecchymosis particularly right neck, bilateral upper extremities Neuro: General: No confusion Other: Left upper extremity hemiparesis, able to move right foot a little bit not her leg Extrem: General: edema (Trace edema, wrinkled skin) bilateral Psych: Other: Appropriate mood Objective Data Vital Signs Vital Signs: Vital Signs - 24 hr 04/25/20 19:48 04/26/20 05:28 Temperature 37.1 C 36.7 C Pulse Rate 64 68 Respiratory Rate 16 16 Blood Pressure 151/48 H 169/59 H Pulse Oximetry 98 100 Intake/Output Intake/Output: Intake & Output 04/23/20 04/24/20 04/25/20 04/26/20 23:59 23:59 23:59 23:59 Intake Total 410 640 740 400 Output Total 2675 45 150 Balance -2265 595 590 400 Meds/Results Medications: Active Medications Generic Name Dose Route Start Last Admin Trade Name Freq PRN Reason Stop Dose Admin Acetaminophen 500 mg 04/22/20 16:55 Acetaminophen 500 Mg Tablet PO Q6H PRN Mild Pain (1-3) or Fever Hydrocodone Bitart/Acetaminophen 1 tab 04/22/20 16:55 04/23/20 17:20 Hydrocodone/Acetaminophen (*Crx) 5-325 Mg Tablet PO 1 tab Q6H PRN Administration Pain Rated 4-6 Amlodipine Besylate 5 mg 04/25/20 09:35 04/26/20 09:10 Amlodipine Besylate 5 Mg Tablet PO 5 mg QAM OSIEL Administration Aspirin 81 mg 04/21/20 09:00 04/26/20 09:10 Aspirin 81 Mg Enteric Tablet PO 81 mg QAM OSIEL Administration Carvedilol 12.5 mg 04/14/20 21:00 04/22/20 21:22 Carvedilol 12.5 Mg Tablet PO 12.5 mg Q12HR OSIEL Administration Clopidogrel Bisulfate 75 mg 04/15/20 11:00 04/26/20 09:10 Clopidogrel Bisulfate 75 Mg Tablet PO 75 mg QAM OSIEL Administration Dextrose 12.5 gm 04/11/20 23:29 Dextrose 50% 25 Gm/50 Ml Syringe IV PUSH PRN PRN Hypoglycemia Protocol Doxycycline Hyclate 100 mg 04/21/20 21:00 04/26/20 09:10 Doxycycline Hyclate 100 Mg Tablet PO 100 mg Q12HR OSIEL Administration Epoetin Salvador-epbx 10,000 units 04/19/20 09:00 04/23/20 10:38 Epoetin Salvadro-Epbx 10,000 Units/Ml Vial IV PUSH 10,000 units [id number]@[id number] [facility] Administration Fentanyl Citrate 25 mcg 04/22/20 16:55 Fentanyl Citrate Inj (*Crx) 100 Mcg/2 Ml Vial IV PUSH Q2H PRN Pain Rated 7-10 Glucagon 1 mg 04/11/20 23:29 Glucagon For Inj 1 Mg Vial IM PRN PRN Hypoglycemia Protocol Glucose 15 gm 04/11/20 23:29 Glucose Oral Gel 15 Gm Of Glucse In 37.5 Gm Tube PO PRN PRN Hypoglycemia
--- NOTE | 2020-04-26 15:18 | PM.IMPN ---
Progress Note: A&P Assessment and Plan (1) Acute on chronic anemia: Code(s): D64.9 - Anemia, unspecified Status: Acute Assessment and Plan: Currently on Epo Transfuse 2 units 04/19 and hemoglobin 9.5 again toda (2) Acute on chronic diastolic (congestive) heart failure: Code(s): I50.33 - Acute on chronic diastolic (congestive) heart failure Status: Chronic Assessment and Plan: Stable with Coreg and Controlling fluid with dialysis echo EF 60-65% with mild pul htn, and grade 1 DDysfunction (3) Chronic renal failure, stage 4 (severe): Code(s): N18.4 - Chronic kidney disease, stage 4 (severe) Status: Inactive Assessment and Plan: Requiring HD now Sunday(but none today and will dialyze 04/27) tunnel cath placed 04/22 (4) Acute non-ST elevation myocardial infarction (NSTEMI): Code(s): I21.4 - Non-ST elevation (NSTEMI) myocardial infarction Status: Acute Assessment and Plan: Probable troponin leak secondary to volume overload (5) Anemia due to stage 4 chronic kidney disease: Code(s): N18.4 - Chronic kidney disease, stage 4 (severe); D63.1 - Anemia in chronic kidney disease Status: Acute Assessment and Plan: Epo and as above transfusion as needed, hgb stable (6) Hx of non-ST elevation myocardial infarction (NSTEMI): Code(s): I25.2 - Old myocardial infarction Status: Acute Assessment and Plan: Stable (7) Acute respiratory failure: Qualifiers: Respiratory failure complication: hypoxia Qualified Code(s): J96.01 - Acute respiratory failure with hypoxia Code(s): J96.00 - Acute respiratory failure, unspecified whether with hypoxia or hypercapnia Status: Acute Assessment and Plan: Resolved thought secondary to congestive heart failure and or possible pneumonia. Extubated 04/14. Continue PT sat 97% ra now (8) CVA (cerebral vascular accident): Code(s): I63.9 - Cerebral infarction, unspecified Status: Acute Assessment and Plan: Right cerebral infarction with left hemiparesis sometime during or after her placement of tunnel catheter. Deemed not be a candidate for tPA per stroke team zulma [place]. 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 diflucan 100 mg after dialysis and 50 mg on non dialyisis days for 7-10 days Subjective Date/time seen: 04/26/20 15:18 Interval history: Date of visit 04/26 77-year-old hypertensive type 2 diabetic admitted with acute respiratory failure secondary to volume overload and diastolic heart failure. Mechanically ventilated within 24 hours after admission for some 48 hours and extubated 04/14 . Denies dizziness or significant shortness of breath. No chest pain. No palpitations. Transfused 04/19, . had tunnel cath placed 04/22 and when she returned from surgery nurse noticed flaccid left side . Noncontrast CT no hemorrhage but discussed with stroke team at [place] and not a candidate for tPA feels better and can move L arm again some 04/24 and more each day. Exam Narrative: Exam Narrative: Blood pressure 152/48 pulse 64 and regular sat 95% on RA afebrile Lying in bed and feeling better Pupils equal reactive sclera anicteric Ne
[2020-04-26 15:43] VITALS: BP 158/44; PULSE 65; RESP 18; TEMP 36.4; O2SAT 97
[2020-04-26] MEDS: FLUCONAZOLE 100 MG TABLET PO (16:03)
[2020-04-26 17:41] LABS: Glucose Point of Care 119 (65-105)
[2020-04-26 21:13] LABS: Glucose Point of Care 191 (65-105)
[2020-04-26 21:52] VITALS: BP 149/49; PULSE 61; RESP 18; TEMP 36.1; O2SAT 99
[2020-04-27] VITALS (21 sets, daily range): BP systolic 91–174; BP diastolic 34–75; PULSE 62–78; RESP 16–18; TEMP 36.1–38.2; O2SAT 98–100
[2020-04-27] MEDS: LEVOTHYROXINE SODIUM 75 MCG TABLET PO (05:31)
[2020-04-27] MEDS: HEPARIN SODIUM 5,000 UNITS/ML VIAL 5000 UNITS SUB-Q ×3 (05:31→21:16)
[2020-04-27 05:50] LABS: Hematocrit 27.6 % (37.0-47.0); Hemoglobin 9.1 g/dL (12.0-15.0); Mean Corpuscular Hemoglobin 28.7 pg (26-34); Mean Corpuscular Volume 87.1 fl (80-100); Mean Platelet Volume 9.6 fl (7.4-10.4); Platelet Count Result 203 k/mm3 (150-375); Red Blood Count 3.17 M/mm3 (4.2-5.4); Red Cell Distribution Width 15.8 % (11.5-14.5); White Blood Count 15.4 K/mm3 (4.5-10.0)
[2020-04-27 06:05] LABS: Albumin Level 4.2 g/dL (3.5-5.1); Anion Gap 23 mmol/L (8-16); Blood Urea Nitrogen 96 mg/dL (7-17); Calcium 9.7 mg/dL (8.4-10.2); Carbon Dioxide 18 mmol/L (22-30); Chloride 93 mmol/L (98-107); Estimated CRCL calculation 4 ml/min; Estimated Glomerular Filt Rate 4; Glucose 118 mg/dL (65-105); Phosphorus 9.2 mg/dL (2.5-4.5); Potassium 3.9 mmol/L (3.4-5.0); Sodium 134 mmol/L (137-145)
[2020-04-27 08:22] LABS: Glucose Point of Care 119 (65-105)
--- NOTE | 2020-04-27 09:33 | PC.NURSE ---
Patient to dialysis via hospital bed.
--- NOTE | 2020-04-27 09:53 | PCPTNOTE ---
The PT treatment was unable to be completed this AM due to patient leaving room for dialysis. Will continue per Plan of Care frequency and duration.
--- NOTE | 2020-04-27 10:25 | PCOTNOTE ---
The OT treatment was unable to be completed this AM due to patient in dialysis. Will continue per Plan of Care frequency and duration.
--- NOTE | 2020-04-27 10:57 | P.PNNP_ITS ---
Progress Note: A&P Assessment and Plan (1) End stage renal disease: Code(s): N18.6 - End stage renal disease Status: Chronic Assessment and Plan: * decline in kidney function noted with acute illness * initiated on renal replacement therapy/dialysis (04/16/20) * now end-stage renal disease. * getting dialysis today. (2) CVA (cerebral vascular accident): Code(s): I63.9 - Cerebral infarction, unspecified Status: Acute Assessment and Plan: * based on clinic exam - perhaps more a TIA given ongoing recovery * Left arm is stronger every day * CT of head negative * MRI of brain shows no acute infarct. Some lacunar infarcts. (3) Essential (primary) hypertension: Code(s): I10 - Essential (primary) hypertension Status: Acute Assessment and Plan: * reasonable control * blood pressure borderline but she did just have a TIA so will shoot for 130- 160. * Will start a small dose of lisinopril because of the positive troponins (4) Acute on chronic diastolic (congestive) heart failure: Code(s): I50.33 - Acute on chronic diastolic (congestive) heart failure Status: Chronic Assessment and Plan: * positive troponins noted * Cardiology following * Looks euvolemic right now. (5) Anemia: Code(s): D64.9 - Anemia, unspecified Status: Chronic Assessment and Plan: * due to a combination of GIULIANA, CKD, and acute illness * PRBC transfusion on 04/19/20 * continue Epogen with HD * follow trend of H/H (6) Type 2 diabetes mellitus without complication: Qualifiers: Diabetes mellitus correction insulin use: with intermodal customer service use Qualified Code(s): E11.9 - Type 2 diabetes mellitus without complications; Z79.4 - FPC (current) use of insulin Code(s): E11.9 - Type 2 diabetes mellitus without complications Status: Chronic Assessment and Plan: * follow accu-Cheks * on sliding-scale insulin Will continue to follow. Subjective Date/time seen: 04/27/20 10:57 Interval history: patient is feeling okay. Lying flat in bed. Patient is on dialysis now and tolerating it well. She was seen at 10:45 a.m. Eager for discharge Exam Narrative: Exam Narrative: General: WD/WN female in NAD Heart: normal S1 and S2; no rub Lungs: decreased at bases Abdomen: soft, nontender, nondistended, positive bowel sounds Extremities: no cyanosis or clubbing; trace edema; left sided weakness which has improved significantly Skin: No rash or subcu nodules Objective Data Vital Signs Vital Signs: Vital Signs - 24 hr 04/26/20 15:43 04/26/20 21:52 04/27/20 05:00 Temperature 36.4 C 36.1 C L 36.6 C Pulse Rate 65 61 67 Respiratory Rate 18 18 18 Blood Pressure 158/44 H 149/49 H 157/55 H Pulse Oximetry 97 99 98 Intake/Output Intake/Output: Intake & Output 04/24/20 04/25/20 04/26/20 04/27/20 23:59 23:59 23:59 23:59 Intake Total 640 740 600 500 Output Total 45 150 650 Balance 595 590 600 -150 Meds/Results Medications: Active Medications Generic Name Dose Route Start Last Admin Trade Name Freq PRN Reason Stop Dose Admin Acetaminophen 500 mg 04/22/20 16:55 Acetaminophen 500 Mg Tablet PO Q6H PRN Mild Pain (1-3) or Fever
--- NOTE | 2020-04-27 10:57 | PM.PNNEP ---
Progress Note: A&P Assessment and Plan (1) End stage renal disease: Code(s): N18.6 - End stage renal disease Status: Chronic Assessment and Plan: decline in kidney function noted with acute illness initiated on renal replacement therapy/dialysis (04/16/20) now end-stage renal disease. getting dialysis today. (2) CVA (cerebral vascular accident): Code(s): I63.9 - Cerebral infarction, unspecified Status: Acute Assessment and Plan: based on clinic exam - perhaps more a TIA given ongoing recovery Left arm is stronger every day CT of head negative MRI of brain shows no acute infarct. Some lacunar infarcts. (3) Essential (primary) hypertension: Code(s): I10 - Essential (primary) hypertension Status: Acute Assessment and Plan: reasonable control blood pressure borderline but she did just have a TIA so will shoot for 130-160. Will start a small dose of lisinopril because of the positive troponins (4) Acute on chronic diastolic (congestive) heart failure: Code(s): I50.33 - Acute on chronic diastolic (congestive) heart failure Status: Chronic Assessment and Plan: positive troponins noted Cardiology following Looks euvolemic right now. 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 Subjective Date/time seen: 04/27/20 10:57 Interval history: patient is feeling okay. Lying flat in bed. Patient is on dialysis now and tolerating it well. She was seen at 10:45 a.m. Eager for discharge Exam Narrative: Exam Narrative: General: WD/WN female in NAD Heart: normal S1 and S2; no rub Lungs: decreased at bases Abdomen: soft, nontender, nondistended, positive bowel sounds Extremities: no cyanosis or clubbing; trace edema; left sided weakness which has improved significantly Skin: No rash or subcu nodules Objective Data Vital Signs Vital Signs: Vital Signs - 24 hr 04/26/20 15:43 04/26/20 21:52 04/27/20 05:00 Temperature 36.4 C 36.1 C L 36.6 C Pulse Rate 65 61 67 Respiratory Rate 18 18 18 Blood Pressure 158/44 H 149/49 H 157/55 H Pulse Oximetry 97 99 98 Intake/Output Intake/Output: Intake & Output 04/24/20 04/25/20 04/26/20 04/27/20 23:59 23:59 23:59 23:59 Intake Total 640 740 600 500 Output Total 45 150 650 Balance 595 590 600 -150 Meds/Results Medications: Active Medications Generic Name Dose Route Start Last Admin Trade Name Freq PRN Reason Stop Dose Admin Acetaminophen 500 mg 04/22/20 16:55 Acetaminophen 500 Mg Tablet PO Q6H PRN Mild Pain (1-3) or Fever Hydrocodone Bitart/Acetaminophen 1 tab 04/22/20 16:55 04/23/20 17:20 Hydrocodone/Acetaminophen (*Crx) 5-325 Mg Tablet PO 1 tab Q6H PRN Administration Pain Rated 4-6 Amlodipine Besylate 5 mg 04/25/20 09:35 04/26/20 09:10 Amlodipine Besylate 5 Mg Tablet PO 5 mg QAM OSIEL Administration Aspirin 81 mg 04/21/20 09:00 04/26/20 09:10 Aspirin 81 Mg Enteric Tablet PO 81 mg QAM OSIEL Administration Carvedilol 12.5 mg 04/14/20 21:00 04/22/20 21:22 Carvedilol 12.5 Mg Tablet PO 12.5 mg Q12HR OSIEL Administration Clopidogrel Bisulfate 75 mg 04/15/20 11:00 04/26/20 09:10 Clopidogrel Bisulfate 75 Mg Tablet PO 75 mg QAM OSIEL Administration Dextros
--- NOTE | 2020-04-27 12:11 | PCSTNOTE ---
Patient unavailable for treatment due to dialysis.
--- NOTE | 2020-04-27 13:35 | PC.NURSE ---
Patient returned from dialysis via hospital bed.
[2020-04-27] MEDS: lisinopriL 5 MG TABLET PO (13:41)
[2020-04-27] MEDS: CLOPIDOGREL BISULFATE 75 MG TABLET PO (13:41)
[2020-04-27] MEDS: amLODIPine BESYLATE 5 MG TABLET PO (13:41)
[2020-04-27] MEDS: ROSUVASTATIN 10 MG TABLET 40 MG PO (13:41)
[2020-04-27] MEDS: DOXYCYCLINE HYCLATE 100 MG TABLET PO ×2 (13:41→21:15)
[2020-04-27] MEDS: PANTOPRAZOLE SODIUM IV 40 MG VIAL IV PUSH ×2 (13:42→21:15)
[2020-04-27] MEDS: ASPIRIN 81 MG ENTERIC TABLET PO (13:42)
[2020-04-27 13:52] LABS: Glucose Point of Care 126 (65-105)
--- NOTE | 2020-04-27 13:56 | PM.PNCARD ---
Progress Note: A&P Assessment and Plan (1) CVA (cerebral vascular accident): Code(s): I63.9 - Cerebral infarction, unspecified Status: Acute Assessment and Plan: Right cerebral infarction with left hemiparesis. Unclear etiology, deficits 1st noted after return from IJ catheter placement 04/22/2020. 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 Repeat studies revealed slight improvement but persistence of the echodensity. 2D echocardiogram 04/12/2020 did not reveal mobile echodensity. CT showed small old lacunar infarcts in the right cerebellum. Was not deemed a tPA candidate for stroke team at [facility]. Carotid Doppler 50-69% stenosis left internal carotid artery, not involved. No documented evidence of atrial fibrillation/flutter on telemetry available. Patient declined RICHIE for further evaluation Continue present meds with aspirin,Plavix and rosuvastatin. (2) Acute on chronic renal failure: Code(s): N17.9 - Acute kidney failure, unspecified; N18.9 - Chronic kidney disease, unspecified Status: Acute Assessment and Plan: Started on hemodialysis. Tolerated Hemodialysis today. (3) Coronary disease: Code(s): I25.10 - Atherosclerotic heart disease of [place] coronary artery without angina pectoris Status: Acute Assessment and Plan: History of PCI. Continue medical therapy including aspirin and clopidogrel. Followed by Dr. Castro. (4) Elevated troponin: Code(s): R77.8 - Other specified abnormalities of plasma proteins Status: Acute Assessment and Plan: Type 2 infarct not consistent with acute coronary syndrome. Troponins without significant rise or fall. This could be related to underlying renal failure/heart failure/BP. Continue aspirin, clopidogrel, beta-antonio (5) Acute on chronic diastolic (congestive) heart failure: Code(s): I50.33 - Acute on chronic diastolic (congestive) heart failure Status: Chronic Assessment and Plan: Heart failure with preserved ejection fraction likely secondary to uncontrolled hypertension as well as severe progressive renal failure and anemia. Improved with initiation of dialysis. Patient is euvolemic. (6) Hypertension associated with diabetes: Code(s): E11.59 - Type 2 diabetes mellitus with other circulatory complications; I15.2 - Hypertension secondary to endocrine disorders Status: Inactive Assessment and Plan: BP was fairly elevated well taking Coreg 12.5 mg b.i.d.. She was on amlodipine at home. Amlodipine resumed at a lower dose than home dose, 5 mg daily, with improvement of blood pressure. (7) Anemia: Code(s): D64.9 - Anemia, unspecified Status: Acute Assessment and Plan: Improving after transfusion. Follow H&H closely. Has been stable and DAPT. Subjective Date/time seen: 04/27/20 13:56 Interval history: Follow-up visit in this 75-year-old female with: Significant volume overload and end-stage renal disease. History of diastolic left ventricular noncompliance 04/26/2020: No cardiovascular symptoms or concerns. Date of service 04/27/2020: Had dialysis today, tolerated well, said it was boring. Breathing is much better. No chest pain. Poor appetite. Has not been out of bed much and feels weak. Review of Systems Constitutional: Constitutional: Reports weakness Eyes: Eyes: Reports no additional eye complain
--- NOTE | 2020-04-27 14:35 | PCOTNOTE ---
Attempted OT treatment with patient, but patient refused, declining all ADLs, functional activities and exercises. Will check back tomorrow.
[2020-04-27 17:09] LABS: Glucose Point of Care 291 (65-105)
[2020-04-27] MEDS: FLUCONAZOLE 100 MG TABLET PO (17:09)
[2020-04-27] MEDS: INSULIN ASPART (*BKC) 100 UNITS/ML SUB-Q (17:10)
--- NOTE | 2020-04-27 19:15 | PM.IMPN ---
Progress Note: A&P Assessment and Plan (1) End stage renal disease: Code(s): N18.6 - End stage renal disease Status: Chronic Assessment and Plan: Undergoing HD Nephrology following. (2) Acute on chronic diastolic (congestive) heart failure: Code(s): I50.33 - Acute on chronic diastolic (congestive) heart failure Status: Chronic Assessment and Plan: Stable Monitor I/O's (3) Elevated troponin: Code(s): R77.8 - Other specified abnormalities of plasma proteins Status: Acute Assessment and Plan: Further evaluation as per Cardiology. Stable Plavix,ASA, Carvedilol. (4) Acute on chronic renal failure: Code(s): N17.9 - Acute kidney failure, unspecified; N18.9 - Chronic kidney disease, unspecified Status: Acute Assessment and Plan: On HD. (5) Acute respiratory failure: Qualifiers: Respiratory failure complication: hypoxia Qualified Code(s): J96.01 - Acute respiratory failure with hypoxia Code(s): J96.00 - Acute respiratory failure, unspecified whether with hypoxia or hypercapnia Status: Acute Assessment and Plan: Resolved. (6) Acute non-ST elevation myocardial infarction (NSTEMI): Code(s): I21.4 - Non-ST elevation (NSTEMI) myocardial infarction Status: Acute Assessment and Plan: Further evaluation as per Cardiology. (7) Anemia due to stage 4 chronic kidney disease: Code(s): N18.4 - Chronic kidney disease, stage 4 (severe); D63.1 - Anemia in chronic kidney disease Status: Acute Assessment and Plan: Continue to monitor Epo as per Nephrology (8) Type 2 diabetes mellitus without complication: Qualifiers: Diabetes mellitus group home insulin use: with assistant terminal manager use Qualified Code(s): E11.9 - Type 2 diabetes mellitus without complications; Z79.4 - continuous churn buttermaker (current) use of insulin Code(s): E11.9 - Type 2 diabetes mellitus without complications Status: Chronic Assessment and Plan: Continue to monitor Accu checks ACHS ISS as needed (9) GERD (gastroesophageal reflux disease): Qualifiers: Esophagitis presence: esophagitis presence not specified Qualified Code(s): K21.9 - Gastro-esophageal reflux disease without esophagitis Code(s): K21.9 - Gastro-esophageal reflux disease without esophagitis Status: Acute Assessment and Plan: Stable (10) CVA (cerebral vascular accident): Code(s): I63.9 - Cerebral infarction, unspecified Status: Acute Assessment and Plan: Plavix and ASA Subjective Date/time seen: 04/27/20 19:15 Patient states that she feels fine. Review of Systems Review of Systems: Narrative: No complains today, no new issues overnight. Exam Narrative: Exam Narrative: Lying in bed. Const: General: comfortable, no acute distress, alert, awake and Physically active Nutritional Appearance: average body habitus Orientation/consciousness: patient oriented x3 Limitations: no limitations HENMT: Head: normal to inspection and normocephalic Face and sinus: normal facial exam Eyes: Pupils: Equal, round and reactive pupils present EOM: EOMs intact bilaterally Neck: Neck: no lymphadenopathy, supple and no JVD Resp: Effort & Inspection: able to speak in complete sentences Auscultation: clear to auscultation bilaterally Cardio: Jugular venous distension: no JVD Rate: regular rate Rhythm: regular rhythm GI: GI Palp: Yes Soft to palpation Skin: Lesions: no lesions Wounds: no wounds Neuro: General: patient oriented x3 and CN's II-XI intact bilaterally Cranial nerves: Yes CN's II-XII intact bilaterally and Yes Equal, round and reactive pupils present Cognition (Neuro): normal cognition Motor exam (neuro): 5/5 motor strength present throughout Extrem: General: no pedal edema Objective Data Vital Signs Vital Signs: Vital Signs - 24 hr 04/26/20 21:52 04/27/20 05:00 04/27/20 09:37
[2020-04-27 21:37] LABS: Glucose Point of Care 165 (65-105)
[2020-04-28] MEDS: LEVOTHYROXINE SODIUM 75 MCG TABLET PO (05:42)
[2020-04-28] MEDS: HEPARIN SODIUM 5,000 UNITS/ML VIAL 5000 UNITS SUB-Q (05:42)
[2020-04-28 06:21] VITALS: BP 128/44; PULSE 64; RESP 16; TEMP 36.1; O2SAT 99
--- NOTE | 2020-04-28 07:42 | P.PNNP_ITS ---
Progress Note: A&P Assessment and Plan (1) End stage renal disease: Code(s): N18.6 - End stage renal disease Status: Chronic Assessment and Plan: * decline in kidney function noted with acute illness * initiated on renal replacement therapy/dialysis (04/16/20) * now end-stage renal disease. * Due for dialysis tomorrow. * She is set up at [facility]. She will go on Sunday. If discharge she can go to dialysis at [facility] on . (2) CVA (cerebral vascular accident): Code(s): I63.9 - Cerebral infarction, unspecified Status: Acute Assessment and Plan: * based on clinic exam - perhaps more a TIA given ongoing recovery * Left arm is stronger every day * CT of head negative * MRI of brain shows no acute infarct. Some lacunar infarcts. (3) Essential (primary) hypertension: Code(s): I10 - Essential (primary) hypertension Status: Acute Assessment and Plan: * Aim for approximately 130-150. * (4) Acute on chronic diastolic (congestive) heart failure: Code(s): I50.33 - Acute on chronic diastolic (congestive) heart failure Status: Chronic Assessment and Plan: * positive troponins noted * Cardiology following * Looks euvolemic right now. * On a beta-antonio and SALVADOR-inhibitor. (5) Anemia: Code(s): D64.9 - Anemia, unspecified Status: Chronic Assessment and Plan: * due to a combination of GIULIANA, CKD, and acute illness * PRBC transfusion on 04/19/20 * continue Epogen with HD * follow trend of H/H (6) Type 2 diabetes mellitus without complication: Qualifiers: Diabetes mellitus termite control servicer insulin use: with termite control servicer use Qualified Code(s): E11.9 - Type 2 diabetes mellitus without complications; Z79.4 - watermelon harvesting supervisor (current) use of insulin Code(s): E11.9 - Type 2 diabetes mellitus without complications Status: Chronic Assessment and Plan: * follow accu-Cheks * on sliding-scale insulin Subjective Date/time seen: 04/28/20 07:42 Interval history: patient is feeling okay. Lying flat in bed. No shortness of breath. Exam Narrative: Exam Narrative: General: WD/WN female in NAD Heart: normal S1 and S2; no rub or gallop Lungs: decreased at bases Abdomen: soft, nontender, nondistended, positive bowel sounds Extremities: no cyanosis or clubbing; trace edema; left sided weakness which has improved significantly Skin: No rash Objective Data Vital Signs Vital Signs: Vital Signs - 24 hr 04/27/20 09:37 04/27/20 09:54 04/27/20 10:00 Temperature 36.6 C Pulse Rate 67 66 68 Respiratory Rate 16 Blood Pressure 174/75 H 163/58 H 172/73 H Pulse Oximetry 04/27/20 10:15 04/27/20 10:23 04/27/20 10:30 Temperature Pulse Rate 69 65 65 Respiratory Rate Blood Pressure 99/44 L 113/54 L 123/57 L Pulse Oximetry 04/27/20 10:45 04/27/20 11:00 04/27/20 11:15 Temperature Pulse Rate 66 64 62 Respiratory Rate Blood Pressure 120/55 L 130/64 152/59 H Pulse Oximetry 04/27/20 11:30 04/27/20 11:45 04/27/20 12:00 Temperature Pulse Rate 65 64 78 Respiratory Rate Blood Pressure 124/48 L 127/44 L 91/43 L Pu
--- NOTE | 2020-04-28 07:42 | PM.PNNEP ---
Progress Note: A&P Assessment and Plan (1) End stage renal disease: Code(s): N18.6 - End stage renal disease Status: Chronic Assessment and Plan: decline in kidney function noted with acute illness initiated on renal replacement therapy/dialysis (04/16/20) now end-stage renal disease. Due for dialysis tomorrow. She is set up at [facility]. She will go on Sunday. If discharge she can go to dialysis at [facility] on . (2) CVA (cerebral vascular accident): Code(s): I63.9 - Cerebral infarction, unspecified Status: Acute Assessment and Plan: based on clinic exam - perhaps more a TIA given ongoing recovery Left arm is stronger every day CT of head negative MRI of brain shows no acute infarct. Some lacunar infarcts. (3) Essential (primary) hypertension: Code(s): I10 - Essential (primary) hypertension Status: Acute Assessment and Plan: Aim for approximately 130-150. (4) Acute on chronic diastolic (congestive) heart failure: Code(s): I50.33 - Acute on chronic diastolic (congestive) heart failure Status: Chronic Assessment and Plan: positive troponins noted Cardiology following Looks euvolemic right now. On a beta-antonio and SALVADOR-inhibitor. (5) Anemia: Code(s): D64.9 - Anemia, unspecified Status: Chronic Assessment and Plan: due to a combination of GIULIANA, CKD, and acute illness PRBC transfusion on 04/19/20 continue Epogen with HD follow trend of H/H (6) Type 2 diabetes mellitus without complication: Qualifiers: Diabetes mellitus truck terminal manager insulin use: with truck terminal manager use Qualified Code(s): E11.9 - Type 2 diabetes mellitus without complications; Z79.4 - termite treater (current) use of insulin Code(s): E11.9 - Type 2 diabetes mellitus without complications Status: Chronic Assessment and Plan: follow accu-Cheks on sliding-scale insulin Subjective Date/time seen: 04/28/20 07:42 Interval history: patient is feeling okay. Lying flat in bed. No shortness of breath. Exam Narrative: Exam Narrative: General: WD/WN female in NAD Heart: normal S1 and S2; no rub or gallop Lungs: decreased at bases Abdomen: soft, nontender, nondistended, positive bowel sounds Extremities: no cyanosis or clubbing; trace edema; left sided weakness which has improved significantly Skin: No rash Objective Data Vital Signs Vital Signs: Vital Signs - 24 hr 04/27/20 09:37 04/27/20 09:54 04/27/20 10:00 Temperature 36.6 C Pulse Rate 67 66 68 Respiratory Rate 16 Blood Pressure 174/75 H 163/58 H 172/73 H Pulse Oximetry 04/27/20 10:15 04/27/20 10:23 04/27/20 10:30 Temperature Pulse Rate 69 65 65 Respiratory Rate Blood Pressure 99/44 L 113/54 L 123/57 L Pulse Oximetry 04/27/20 10:45 04/27/20 11:00 04/27/20 11:15 Temperature Pulse Rate 66 64 62 Respiratory Rate Blood Pressure 120/55 L 130/64 152/59 H Pulse Oximetry 04/27/20 11:30 04/27/20 11:45 04/27/20 12:00 Temperature Pulse Rate 65 64 78 Respiratory Rate Blood Pressure 124/48 L 127/44 L 91/43 L Pulse Oximetry 04/27/20 12:15 04/27/20 12:30 04/27/20 12:45 Temperature Pulse Rate 67 70 73 Respiratory Rate Blood Pressure 109/43 L 104/34 L 127/58 L Pulse Oximetry 04/27/20 12:58 04/27/20 13:00 04/27/20 13:09 Temperature 36.1 C L 36.4 C L Pulse Rate 70 71 67 Respiratory Rate 16 16 Blood Pressure 148/61 H 144/59 H 148/63 H Pulse Oximetry 100 04/27/20 20:01 04/28/20 06:21 Temperature 36.7 C 36.1 C L Pulse Rate 71 64 Respiratory Rate 16 16 Blood Pressure 142/44 H 128/44 L Pulse Oximetry 98 99 Intake/Output Intake/Output: Intake & Output 04/25/20 04/26/20 04/27/20 04/28/20 23:59 23:59 23:59 23:59 Intake Total 740 600 500 100 Output Total 150 2050 Balance 590 600 -1550 100 Meds/Results Medication
[2020-04-28 07:47] LABS: Glucose Point of Care 133 (65-105)
[2020-04-28] MEDS: PANTOPRAZOLE SODIUM IV 40 MG VIAL IV PUSH (08:27)
[2020-04-28] MEDS: DOXYCYCLINE HYCLATE 100 MG TABLET PO (08:28)
[2020-04-28] MEDS: amLODIPine BESYLATE 5 MG TABLET PO (08:28)
[2020-04-28] MEDS: CLOPIDOGREL BISULFATE 75 MG TABLET PO (08:28)
[2020-04-28] MEDS: ROSUVASTATIN 10 MG TABLET 40 MG PO (08:29)
[2020-04-28] MEDS: ASPIRIN 81 MG ENTERIC TABLET PO (08:29)
[2020-04-28] MEDS: lisinopriL 5 MG TABLET PO (08:29)
[2020-04-28 11:57] LABS: Glucose Point of Care 172 (65-105)
--- NOTE | 2020-04-28 13:42 | PM.DS ---
DS: Admitting Diagnosis Admitting Diagnosis Admitting Diagnosis: SOB DS: Discharge Diagnosis Discharge Diagnosis (1) End stage renal disease: Code(s): N18.6 - End stage renal disease Status: Chronic (2) Acute on chronic anemia: Code(s): D64.9 - Anemia, unspecified Status: Acute (3) GIULIANA (acute kidney injury): Code(s): N17.9 - Acute kidney failure, unspecified Status: Acute (4) UTI due to Klebsiella species: Code(s): N39.0 - Urinary tract infection, site not specified; B96.89 - Other specified bacterial agents as the cause of diseases classified elsewhere Status: Acute (5) Acute on chronic diastolic (congestive) heart failure: Code(s): I50.33 - Acute on chronic diastolic (congestive) heart failure Status: Chronic (6) Elevated troponin: Code(s): R77.8 - Other specified abnormalities of plasma proteins Status: Acute (7) Coronary disease: Code(s): I25.10 - Atherosclerotic heart disease of [place] coronary artery without angina pectoris Status: Acute (8) Acute respiratory failure: Qualifiers: Respiratory failure complication: hypoxia Qualified Code(s): J96.01 - Acute respiratory failure with hypoxia Code(s): J96.00 - Acute respiratory failure, unspecified whether with hypoxia or hypercapnia Status: Acute (9) Acute on chronic renal failure: Code(s): N17.9 - Acute kidney failure, unspecified; N18.9 - Chronic kidney disease, unspecified Status: Acute (10) Acute non-ST elevation myocardial infarction (NSTEMI): Code(s): I21.4 - Non-ST elevation (NSTEMI) myocardial infarction Status: Acute (11) Anemia due to stage 4 chronic kidney disease: Code(s): N18.4 - Chronic kidney disease, stage 4 (severe); D63.1 - Anemia in chronic kidney disease Status: Acute (12) Type 2 diabetes mellitus without complication: Qualifiers: Diabetes mellitus intermediate designer insulin use: with intermediate designer use Qualified Code(s): E11.9 - Type 2 diabetes mellitus without complications; Z79.4 - exterminator (current) use of insulin Code(s): E11.9 - Type 2 diabetes mellitus without complications Status: Chronic (13) Hypothyroidism: Qualifiers: Hypothyroidism type: unspecified Qualified Code(s): E03.9 - Hypothyroidism, unspecified Code(s): E03.9 - Hypothyroidism, unspecified Status: Acute (14) Hyperlipidemia: Qualifiers: Hyperlipidemia type: unspecified Qualified Code(s): E78.5 - Hyperlipidemia, unspecified Code(s): E78.5 - Hyperlipidemia, unspecified Status: Acute (15) GERD (gastroesophageal reflux disease): Qualifiers: Esophagitis presence: esophagitis presence not specified Qualified Code(s): K21.9 - Gastro-esophageal reflux disease without esophagitis Code(s): K21.9 - Gastro-esophageal reflux disease without esophagitis Status: Acute (16) Diabetic neuropathy associated with diabetes mellitus due to underlying condition: Code(s): E08.40 - Diabetes mellitus due to underlying condition with diabetic neuropathy, unspecified Status: Chronic (17) Hx of non-ST elevation myocardial infarction (NSTEMI): Code(s): I25.2 - Old myocardial infarction Status: Acute (18) ASHD (arteriosclerotic heart disease): Code(s): I25.10 - Atherosclerotic heart disease of [place] coronary artery without angina pectoris Status: Acute (19) Type II diabetes mellitus with stage 3 chronic kidney disease: Code(s): E11.22 - Type 2 diabetes mellitus with diabetic chronic kidney disease; N18.3 - Chronic kidney disease, stage 3 (moderate) Status: Acute (20) Occlusion and stenosis of bilateral carotid arteries: Code(s): I65.23 - Occlusion and stenosis of bilateral carotid arteries Status: Acute DS: Summary Hospital Course Reason for hospitalization: SOB Hospital Course: This is a pleasant 75
[2020-04-28 14:00] VITALS: BP 112/51; PULSE 72; RESP 16; TEMP 36.3; O2SAT 98
--- NOTE | 2020-04-28 14:33 | PCSTNOTE ---
This patient was seen prior to being discharged for a non-chargeable visit due to brief time together. Patient recognized this therapist and stated that she feels her memory issues have resolved. Therapist challenged her to find pictures of her children and grandchildren on her phone because two days ago on 04/26 when this therapist completed a visit with her, she was unable to do so although she attempted throughout the session to show me pictures. Today, she pulled up [employer] on her phone and quickly showed me pictures of all three of her children and their families. She is being discharged today with all goals achieved.
--- NOTE | 2020-04-28 15:13 | PM.PNCARD ---
Progress Note: A&P Assessment and Plan (1) CVA (cerebral vascular accident): Code(s): I63.9 - Cerebral infarction, unspecified Status: Acute Assessment and Plan: Right cerebral infarction with left hemiparesis. Unclear etiology, deficits 1st noted after return from IJ catheter placement 04/22/2020. 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 Repeat studies revealed slight improvement but persistence of the echodensity. 2D echocardiogram 04/12/2020 did not reveal mobile echodensity. CT showed small old lacunar infarcts in the right cerebellum. Was not deemed a tPA candidate for stroke team at [facility]. Carotid Doppler 50-69% stenosis left internal carotid artery, not involved. No documented evidence of atrial fibrillation/flutter on telemetry available. Patient declined RICHIE for further evaluation Continue present meds with aspirin, Plavix and rosuvastatin. (2) Acute on chronic renal failure: Code(s): N17.9 - Acute kidney failure, unspecified; N18.9 - Chronic kidney disease, unspecified Status: Acute Assessment and Plan: Started on hemodialysis. Tolerated Hemodialysis today. (3) Coronary disease: Code(s): I25.10 - Atherosclerotic heart disease of [place] coronary artery without angina pectoris Status: Acute Assessment and Plan: History of PCI. Continue medical therapy including aspirin and clopidogrel. Followed by Dr. Castro. (4) Elevated troponin: Code(s): R77.8 - Other specified abnormalities of plasma proteins Status: Acute Assessment and Plan: Type 2 infarct not consistent with acute coronary syndrome. Troponins without significant rise or fall. This could be related to underlying renal failure/heart failure/BP. Continue aspirin, clopidogrel, beta-antonio (5) Acute on chronic diastolic (congestive) heart failure: Code(s): I50.33 - Acute on chronic diastolic (congestive) heart failure Status: Chronic Assessment and Plan: Heart failure with preserved ejection fraction likely secondary to uncontrolled hypertension as well as severe progressive renal failure and anemia. Improved with initiation of dialysis. Patient is euvolemic. (6) Hypertension associated with diabetes: Code(s): E11.59 - Type 2 diabetes mellitus with other circulatory complications; I15.2 - Hypertension secondary to endocrine disorders Status: Inactive Assessment and Plan: BP was fairly elevated well taking Coreg 12.5 mg b.i.d.. She was on amlodipine at home. Amlodipine resumed at a lower dose than home dose, 5 mg daily, with improvement of blood pressure. (7) Anemia: Code(s): D64.9 - Anemia, unspecified Status: Acute Assessment and Plan: Improving after transfusion. Follow H&H closely. Has been stable and DAPT. OK for discharge; has OV w/ our office scheduled for 05/18/2020. Rec stay off the isosorbide/hydralazine and the furosemide since she has not been taking them recently. We can resume in the office if needed. Subjective Date/time seen: 04/28/20 15:13 Interval history: Follow-up visit in this 75-year-old female with: Significant volume overload and end-stage renal disease. Elevated trop on admission, prob 2nd CHF and ARF History of diastolic left ventricular noncompliance/CHF CVA during hospitalization. CAD and previous [place], s/p stent followed by DR. Castro 04/26/2020: No c
[2020-04-28 16:53] LABS: Glucose Point of Care 161 (65-105)
== END 2020-04-28 18:57 | DRG 208 ==
LOC: ANHED 22:07 → ANHCPC 22:45 → ANHICU 04-12 13:27 → ANH3MED 04-19 23:56 → ANHCPC 04-30 10:53 → ANHICU 04-30 10:53
PROVIDERS: Internal Medicine; Internal Medicine Nephrology; Surgery; Admitting Provider Family Medicine; Emergency Provider Emergency Medicine; PCP Internal Medicine; Visit Provider Internal Medicine
PROC: 02PAX3Z Removal of Infusion Device from Heart, External Approach (ICD-10-PCS; CPT 36908; principal; 2020-04-22 13:30)
DX: J96.01 Acute respiratory failure with hypoxia (principal); I21.4 Non-ST elevation (NSTEMI) myocardial infarction; I50.33 Acute on chronic diastolic (congestive) heart failure; I63.9 Cerebral infarction, unspecified; N18.6 End stage renal disease; N39.0 Urinary tract infection, site not specified; G81.04 Flaccid hemiplegia affecting left nondominant side; I13.2 Hypertensive heart and chronic kidney disease with heart failure and with stage 5 chronic kidney disease, or end stage renal disease; B96.1 Klebsiella pneumoniae [K. pneumoniae] as the cause of diseases classified elsewhere; D63.1 Anemia in chronic kidney disease; R29.810 Facial weakness; Z20.822 Contact with and (suspected) exposure to COVID-19; I15.2 Hypertension secondary to endocrine disorders; E11.22 Type 2 diabetes mellitus with diabetic chronic kidney disease; E11.59 Type 2 diabetes mellitus with other circulatory complications; E11.40 Type 2 diabetes mellitus with diabetic neuropathy, unspecified; R77.8 Other specified abnormalities of plasma proteins; I25.10 Atherosclerotic heart disease of native coronary artery without angina pectoris; I25.2 Old myocardial infarction; E78.5 Hyperlipidemia, unspecified; K21.9 Gastro-esophageal reflux disease without esophagitis; E03.9 Hypothyroidism, unspecified; Z28.21 Immunization not carried out because of patient refusal; Z79.4 Long term (current) use of insulin; Z79.82 Long term (current) use of aspirin; Z79.899 Other long term (current) drug therapy; Z87.891 Personal history of nicotine dependence; Z88.2 Allergy status to sulfonamides; Z95.5 Presence of coronary angioplasty implant and graft
CPT/HCPCS: 31500; 36415; 36430; 36600; 70110; 70450; 70551; 71045; 74019; 76775; 77001; 80048; 80053; 80069; 80074; 82274; 82375; 82570; 82607; 82728; 82746; 82805; 83050; 83540; 83550; 83735; 83880; 84100; 84156; 84300; 84484; 85025; 85027; 85610; 85730; 85999; 86706; 86850; 86900; 86901; 86920; 87040; 87077; 87086; 87088; 87186; 87340; 92507; 92610; 93005; 93306; 93880; 94002; 94003; 94640; 96125; 96374; 97110; 97116; 97162; 97166; 97530; 97535; 99291; A9270; C1750; C1752; C9113; C9803; G0257; J0330; J0360; J0690; J0696; J1644; J1815; J1940; J2250; J2405; J2704; J2765; J3010; J3480; J7030; J7040; P9016; P9047; Q5106; U0003; U0005

== ENCOUNTER 2021-01-28 22:38 | Inpatient (IN) | payer MEDICARE, SELFPAY ==
--- NOTE | ~2021-01-28 | XR_ITS ---
EXAMINATION: XR chest 1V portable INDICATION: Bilateral lower limb weakness, fever TECHNIQUE: Portable AP chest at 2317 hours COMPARISON: 04/22/2020 FINDINGS: There is a mild diffuse interstitial pattern. No pleural effusion or pneumothorax is identi fied. The cardiomediastinal silhouette is normal. A large bore left-sided catheter ends with its tip in proximal right atrium. IMPRESSION: 1. Mild pulmonary edema. Reviewed, dictated and finalized at location A. IMPRESSION: 1. Mild pulmonary edema.
--- NOTE | ~2021-01-28 | CT_ITS ---
EXAMINATION: CTA brain carotid DATE: 01/29/2021 11:03 INDICATION: Bilateral lower limb weakness TECHNIQUE: Computed tomographic angiography (CTA) of the head was performed without and with 100 mL O mnipaque-350 intravenous contrast. CTA of the neck was performed with intravenous contrast. The dose- length product was 1728.18 mGy-cm. Maximum intensity projection and volume rendered 3D-reconstruction s were created by the technologist on a separate workstation. Automated exposure control and iterativ e reconstruction technique were employed. COMPARISON: 04/22/2020 FINDINGS: HEAD CTA: There is no acute intraparenchymal hemorrhage. No evidence of mass lesion. No evidence of a cute infarction. There is mild periventricular and subcortical hypodensity probably related to small vessel ischemic disease. There is mild prominence of the sulci and ventricles related to cerebral atr ophy. Intracranial calcified cerebral atherosclerosis is noted. There are no extra-axial collections. There is no mass effect or midline shift. The orbits and soft tissues are unremarkable. The visualiz ed sinuses and mastoid air cells are well aerated. There is no significant stenosis of the basilar artery or posterior cerebral arteries. There is no si gnificant stenosis of the intracranial internal carotid arteries or the anterior or middle cerebral a rteries. The anterior communicating artery and posterior communicating arteries are normal. There is no aneurysm. NECK CTA: There is a 1.4 cm nodule of the left thyroid lobe. The submandibular and parotid glands are symmetric. There is no lymphadenopathy. There are no masses identified. The airway is unremarkable. There is mild cervical spondylosis. The superior mediastinum is unremarkable. There is 46% stenosis of the proximal right internal carotid artery relative to normal distal artery lumen diameter (NASCET criteria). There is 30% stenosis of the proximal left internal carotid artery relative to normal distal artery lumen diameter. There are multiple areas of severe stenosis in the l eft vertebral artery. IMPRESSION: 1. No acute intracranial abnormality. Normal head CTA. 2. 46% stenosis of the proximal right internal carotid artery relative to normal distal artery lumen diameter (NASCET criteria). 3. 30% stenosis of the proximal left internal carotid artery relative to normal distal artery lumen d iameter. 4. Left thyroid nodule. Consider thyroid ultrasound for risk stratification. Reviewed, dictated and finalized at location A. IMPRESSION: 1. No acute intracranial abnormality. Normal head CTA. 2. 46% stenosis of the proximal right internal carotid artery relative to jojo l distal artery lumen diameter (NASCET criteria). 3. 30% stenosis of the proximal left internal carotid artery relative to normal distal artery lumen diameter. 4. Left thyroid nodule. Consider thyroid ultrasound for risk stratification.
[2021-01-28 22:39] VITALS: BP 155/52; PULSE 79; RESP 25; TEMP 39.4; O2SAT 95
--- NOTE | 2021-01-28 22:52 | ECG_ITS ---
Measurements Intervals [place] Rate: 82 P: 8 MT: 171 QRS: 6 QRSD: 106 T: 13 QT: 385 QTc: 450 Interpretive Statements SINUS RHYTHM VENTRICULAR PREMATURE COMPLEX DELAYED PRECORDIAL R/S TRANSITION BASELINE ARTIFACT- V1, V3-V6 BORDERLINE ECG Electronically Signed On 01-29-2021 6:41:23 CDT by Floyd Multani D.O.
--- NOTE | 2021-01-28 23:16 | PC.NURSE ---
This Rn attempted x2 for IV access. Alanna RN to try.
[2021-01-28 23:28] LABS: Basophils Absolute Auto 0.1 K/mm3 (0.0-0.1); Basophils Percent Auto 0.3 % (0.2-1.2); Eosinophils Absolute Auto 0.1 K/mm3 (0-0.3); Eosinophils Percent Auto 0.5 % (0-4.4); Hematocrit 31.2 % (37.0-47.0); Hemoglobin 10.4 g/dL (12.0-15.0); Immature Granulocyte Absolute 0.09 K/mm3 (0.00-0.031); Immature Granulocyte Percent A 0.5 % (0-0.5); Lymphocytes Absolute Auto 0.83 K/mm3 (0.9-3.2); Lymphocytes Percent Auto 5.1 % (18.3-44.2); Mean Corpuscular HGB Conc 33.3 g/dl (32-36); Mean Corpuscular Hemoglobin 33.9 pg (26-34); Mean Corpuscular Volume 101.6 fl (80-100); Monocytes Absolute Auto 1.5 K/mm3 (0.1-0.6); Monocytes Percent Auto 9.3 % (2.6-8.5); Neutrophils Absolute Auto 13.8 K/mm3 (1.3-6.7); Neutrophils Percent Auto 84.3 % (45.5-73.1); Platelet Count Result 154 k/mm3 (150-375); Red Blood Count 3.07 M/mm3 (4.2-5.4); Red Cell Distribution Width 13.5 % (11.5-14.5); White Blood Count 16.4 K/mm3 (4.5-10.0)
--- NOTE | 2021-01-28 23:33 | ED.GENADULT ---
HPI - General Adult General Chief complaint: Weakness Stated complaint: bilat leg weakness Time Seen by Provider: 01/28/21 22:45 History of Present Illness HPI narrative: Patient 75-year-old female presents the emergency department with chief complaint of generalized weakness. Patient states over the last several days she has had some chills and body aches and then today noticed that she was weaker than normal. Patient states she is had a couple episodes of nausea and vomiting and reports that today she just could not get up and walk on her own. The patient reports that symptoms or not improved by anything or they worsened by anything. Patient reports no vomiting reports no chest pain reports no shortness of breath reports she has had her normal dialysis runs and they taken off the normal amount of fluid. Patient does dialysis through a left sided tunneled catheter. The patient reports she has been vaccinated for COVID-19. Related Data Home Medications Medication Instructions Recorded Confirmed aspirin 81 mg tablet,delayed 81 mg PO DAILY 02/21/19 01/04/21 release cholecalciferol (vitamin D3) 50 2,000 unit PO DAILY 02/21/19 01/04/21 mcg (2,000 unit) tablet multivit with 1 tablet PO DAILY 06/25/19 01/04/21 imoktsew-rqkw-KP-lutein 8 mg iron-400 mcg-300 mcg tablet omega-3 fatty acids 1,000 mg 1,000 mg PO DAILY 06/25/19 01/04/21 capsule pen needle, diabetic 32 gauge x #100 each 06/25/19 01/04/21 1/ rosuvastatin 40 mg tablet 40 mg PO DAILY 06/25/19 01/04/21 carvedilol 12.5 mg tablet 12.5 mg PO Q12H 08/26/19 01/04/21 guanfacine 1 mg tablet 1 mg PO DAILY 08/26/19 01/04/21 ondansetron 4 mg disintegrating 4 mg PO Q8H 05/27/20 01/04/21 tablet Allergies Allergy/AdvReac Type Severity Reaction Status Date / Time Sulfa (Sulfonamide Allergy Mild RASH Verified 01/28/21 22:54 Antibiotics) Review of Systems Review of Systems: A 10 system review of systems was completed on the patient and is negative except for what is stated in the HPI. Nursing and ancillary documentation was reviewed. FORMERLY [facility], [facility] Past Medical History Medical History Acute CHF echo per cardiology; ventricular function good per Acute on chronic anemia Chronic renal failure, stage 4 (severe) Endocarditis History of CVA in adulthood Hypertension associated with diabetes Hyperthyroidism Hypothyroidism Mixed hyperlipidemia Other heart block Surgical History Surgical History History of coronary artery stent placement Family History Family History Sibling Family history of Alzheimer's disease Grandparent Carcinoma of colon Father Family history of heart disease in male family member before age 55 Mother Family history of heart disease in male family member before age 55 Other Cerebrovascular accident Diabetes mellitus Hypertension Social History Social History Smoking packs per day: 1 Smoking cigarettes per day: 20.0 Years smoked: 25 Smoking pack-years: 25.00 Smoking status: Former smoker Tobacco type: cigarettes Second hand tobacco smoke exposure: No Smoking end date: 04/09/92 Alcohol intake: never Substance use: never Substance use type: does not use Spiritual care concerns: No Exam Narrative: GENERAL: Well-appearing, well-nourished, and in no acute distress. HEAD: Normocephalic, atraumatic. EYES: PERRLA and EOMI. ENT: Nares clear, no rhinorrhea or epistaxis. Mucous membranes moist. NECK: Supple. CHEST: Clear to auscultation. No respiratory distress. There is a left-sided dialysis catheter present HEART: Regular rate and rhythm. No murmur heard. Normal peripheral pulses. ABDOMEN: Soft, nontender, nondistended, normal active bowel sounds. EXTRE
[2021-01-28 23:36] LABS: INR 1.2; Prothrombin Time 14.7 Seconds (11.1-14.7)
[2021-01-28 23:37] LABS: Partial Thromboplastin Time 31.5 SECONDS (22.3-36.8)
[2021-01-28 23:40] LABS: Lactic Acid Reflex 1.9 mmol/L (0.7-2.1)
[2021-01-28 23:42] VITALS: PULSE 77; RESP 25; O2SAT 97
[2021-01-28] MEDS: SODIUM CHLORIDE 0.9% IV 500 ML 999 ML IV CONT (23:43)
[2021-01-29] VITALS (26 sets, daily range): BP systolic 118–163; BP diastolic 40–84; PULSE 61–90; RESP 16–24; TEMP 36.1–37.5; O2SAT 93–97; BMI 27.0
[2021-01-29 00:50] LABS: Alanine Aminotransferase 19 U/L (4-35); Albumin Level 3.6 g/dL (3.5-5.1); Alkaline Phosphatase 40 U/L (38-126); Anion Gap 12 mmol/L (8-16); Aspartate Amino Transferase 35 U/L (14-36); Bilirubin,Total 0.5 mg/dL (0.2-1.3); Blood Urea Nitrogen 40 mg/dL (7-17); Calcium 8.2 mg/dL (8.4-10.2); Carbon Dioxide 26 mmol/L (22-30); Chloride 97 mmol/L (98-107); Estimated CRCL calculation 11 ml/min; Estimated Glomerular Filt Rate 10; Glucose 264 mg/dL (65-110); Sodium 135 mmol/L (137-145)
[2021-01-29 01:00] LABS: Troponin I 0.041 ng/mL (0.000-0.034)
[2021-01-29 01:05] LABS: Add Urine Microscopic? YES; Appearance Urine Turbid (Clear); Bacteria Urine 4+ /hpf; Bilirubin Urine Negative (Negative); Blood Urine 2+ (Negative); Color Urine Yellow (Yellow); Glucose Urine UA 2+ mg/dL (Negative); Ketones Urine Negative (Negative); Leukocyte Esterase Ur 3+ LEU/UL (Negative); Nitrate Urine Negative (Negative); Protein Urine 3+ mg/dL (Negative); RBC Urine 21-50 /hpf (0-2); Specific Grav Ur 1.011 (1.001-1.035); Squamous Epithelial Cell Urine Many /hpf (Few); Transitional Epi Cells Urine Rare /hpf (None Seen); Urobilinogen Urine Negative mg/dL (<2.0); WBC Clumps Urine Present /HPF; WBC Urine >75 /hpf
--- NOTE | 2021-01-29 02:05 | PC.NURSE ---
Pt and family updated on hospital visitor policy and POC
--- NOTE | 2021-01-29 03:13 | ADMGEN ---
This patient, Jing Alfredo, was admitted to 2 Medical Room [id number]. Patient/family oriented to hospital policies and general routines including ID bracelet, bed and alarms, visiting hours, pain management, procedures, bathroom and other care routines, personal items, smoking policy, room service/diet, and visiting hours. Information on how to activate the Rapid Response Team has been discussed. Patient/Family are encouraged to report perceived risks to care and to ask questions if they do not understand what they are told or what they should do.
[2021-01-29] MEDS: SODIUM CHLORIDE 0.9% IV 1,000 ML 75 ML IV CONT (03:36)
--- NOTE | 2021-01-29 04:33 | PM.IMHP ---
H&P: HPI History of Present Illness Date/Time: 01/29/21 04:33 Chief Complaint: Weakness Narrative: 75-year-old female with past medical history of end-stage renal disease on hemodialysis, diabetes mellitus, and coronary artery disease who presented to the ER via EMS due to feeling ill and weak since the . She reports that she received her influenza vaccine 01/21/2021. She reported that this is the 1st time that she developed arm pain after influenza vaccine. Then on the began having nausea vomiting and diarrhea. Her emesis was of the food she had eaten and clear with some dry heaves. Her symptoms lasted for 1 day. She assumed her symptoms were due to her recent influenza vaccine. The following day she felt better. But on the following dialysis she began having chills again. She also noted some increased urinary urgency with dribbling of urine. She was having occasional dysuria at started earlier in the week. She did not notice any change in her urine color or any hematuria. She denies any headache or visual changes. She has not had any significant lightheadedness or dizziness out of the usual. She has not had any further nausea or vomiting. She has had decreased appetite and generally has not felt well. She denies any shortness of breath, cough or congestion. She did have 2 doses of the Pfizer COVID vaccine. She has not yet had her booster vaccine but has an appointment with her primary care physician early next month. She is receiving hemodialysis through her left subclavian tunneled dialysis catheter. She is planning to start on peritoneal dialysis in the future but had to have further evaluation by vascular surgery regarding her carotid stenosis. And is scheduled to have a CTA of her neck in the near future. She did undergo hemodialysis on Sunday prior to coming to the ER. She had a fever of 103? on arrival to the ER. She is reporting chills currently and her temperature is 99.9?. Review of Systems Review of Systems: 12 systems were reviewed with pertinent positives and negatives per HPI. Except as documented in the HPI, all other systems were reviewed and are negative. FORMERLY [facility] Past Medical History Medical History Anemia in chronic kidney disease, on chronic dialysis ASHD (arteriosclerotic heart disease) Bilateral carotid artery stenosis 70% stenosis bilateral carotids December 2018 CHF (congestive heart failure) Echocardiogram April 2020: EF 60 65%, grade 1 diastolic dysfunction, moderately increased left ventricular wall thickness, basal inferior wall, mid inferior wall are hypokinetic, moderate left atrial enlargement, mild mitral and tricuspid regurgitation, mild pulmonary hypertension with RVSP of 37 CVA (cerebral vascular accident) (~12/2016) Cerebellum and right occipital lobe due to septic emboli Diabetes mellitus Diabetic neuropathy End-stage renal disease on hemodialysis Initiated hemodialysis April 2020 Endocarditis Aortic valve endocarditis December 2016 Hypertension associated with diabetes Hypothyroidism Mixed hyperlipidemia Other heart block Surgical History Surgical History History of coronary artery stent placement IA with 1 stent 2010 History of tonsillectomy and adenoidectomy History of tubal ligation Family History Family History Sibling Family history of Alzheimer's disease Grandparent Carcinoma of colon Father Family history of heart disease in male family member before age 55 Diabetes mellitus Mother Family history of heart disease in male family member before age 55 Diabetes mellitus Cerebrovascular accident Other Hypertension Social History Social History (Updated 01/29/21 @ 07:11 by Sara Santacruz DO) Social History: She lives with her of 53 years. They have 2 daughters and 1 son. S
[2021-01-29 05:47] LABS: Basophils Percent Auto 0.2 % (0.2-1.2); Eosinophils Absolute Auto 0.1 K/mm3 (0-0.3); Eosinophils Percent Auto 0.5 % (0-4.4); Hemoglobin 9.7 g/dL (12.0-15.0); Immature Granulocyte Percent A 0.7 % (0-0.5); Lymphocytes Absolute Auto 1.14 K/mm3 (0.9-3.2); Lymphocytes Percent Auto 7.7 % (18.3-44.2); Mean Corpuscular HGB Conc 32.3 g/dl (32-36); Mean Corpuscular Hemoglobin 32.9 pg (26-34); Mean Corpuscular Volume 101.7 fl (80-100); Mean Platelet Volume 9.9 fl (7.4-10.4); Monocytes Absolute Auto 1.5 K/mm3 (0.1-0.6); Monocytes Percent Auto 9.9 % (2.6-8.5); Platelet Count Result 146 k/mm3 (150-375); Red Blood Count 2.95 M/mm3 (4.2-5.4); Red Cell Distribution Width 13.1 % (11.5-14.5); White Blood Count 14.8 K/mm3 (4.5-10.0)
[2021-01-29 06:06] LABS: Troponin I 0.034 ng/mL (0.000-0.034)
[2021-01-29] MEDS: ACETAMINOPHEN 325 MG TABLET 650 MG PO ×2 (06:08→22:23)
[2021-01-29] MEDS: LEVOTHYROXINE SODIUM 75 MCG TABLET PO (06:09)
--- NOTE | 2021-01-29 07:01 | PM.CNNEP ---
Assessment and Plan Assessment and plan (1) Fever: Code(s): R50.9 - Fever, unspecified Status: Acute Assessment and Plan: The patient has a fever of 103. She does have pyuria. Hopefully this is just a bladder infection. She had blood and urine cultures done and she is on ceftriaxone. The patient also has a tunneled dialysis catheter. This is been in for 10 months. I fear this might be bacteremia from the catheter. So I asked them to start vancomycin because g positives of be a likely cause of this since it would be the 1st infection. (2) End-stage renal disease on hemodialysis: Code(s): N18.6 - End stage renal disease; Z99.2 - Dependence on renal dialysis Status: Acute Assessment and Plan: The patient will get dialysis today. She skipped dialysis on Sunday as is common for this patient. We discussed again how dangerous it is to skip treatments because this risks hospitalization for causes such as decreased immune function and infection Will do a treatment today to make up for Wednesdays lack there of. (3) CVA (cerebral vascular accident): Code(s): I63.9 - Cerebral infarction, unspecified Status: Acute Assessment and Plan: The patient had a stroke in the past. She needs a carotid angiogram to clear her for surgery according to Dr. Myers. Will go ahead and order this. (4) Renal osteodystrophy: Code(s): N25.0 - Renal osteodystrophy Status: Acute Assessment and Plan: Will check a phosphorus in the morning (5) Erythropoietin deficiency anemia: Code(s): D63.1 - Anemia in chronic kidney disease Status: Acute Assessment and Plan: Will give Epogen on dialysis (6) Coronary disease: Code(s): I25.10 - Atherosclerotic heart disease of [place] coronary artery without angina pectoris Status: Acute Assessment and Plan: No chest pain (7) Diabetes mellitus with hyperglycemia, with long-term current use of insulin: Qualifiers: Diabetes mellitus type: type 2 Qualified Code(s): E11.65 - Type 2 diabetes mellitus with hyperglycemia; 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 Code(s): E11.65 - Type 2 diabetes mellitus with hyperglycemia; 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 The patient started dialysis in April. Before that she decided that she wanted to do peritoneal dialysis. In April she was admitted to the hospital with volume overloaded we started her on dialysis using a tunneled hemodialysis catheter. Early on in her dialysis in April and also early May we started talking to her about doing peritoneal dialysis. She was scared and delayed going to the doctor to have the peritoneal dialysis catheter placed. After repeated lengthy discussions about how tunneled dialysis catheters can get infected and other complications of tunneled dialysis catheters and the benefits of getting either a fistula or a peritoneal dialysis catheter placed she continued to refuse to allow either 1 to happen. Finally about a month ago or so she decided to have the PD catheter placed. She went to the surgeon for this. He asked for clearance from the vascular surgeon because of her history of stroke. The vascular surgeon asked for a CT angio to be done. It was never scheduled. She was going to have her PD cathet
[2021-01-29 07:02] LABS: Glucose Point of Care 202 mg/dl (65-105)
[2021-01-29] MEDS: ROSUVASTATIN 10 MG TABLET 40 MG PO (10:00)
[2021-01-29] MEDS: ASPIRIN 81 MG ENTERIC TABLET PO (10:00)
[2021-01-29] MEDS: CHOLECALCIFEROL 1,000 UNITS TABLET 2000 UNITS PO (10:00)
[2021-01-29] MEDS: ISOSORBIDE MONONITRATE 60 MG TAB.ER.24H PO (10:01)
[2021-01-29] MEDS: THERAPEUTIC MULTIVITAMINS/MINERALS TAB (*BKC) 1 TABLET PO (10:01)
[2021-01-29] MEDS: OMEGA 3 POLYUNSAT FATTY ACIDS 1 GM CAP PO (10:01)
[2021-01-29] MEDS: CLOPIDOGREL BISULFATE 75 MG TABLET PO (10:01)
[2021-01-29] MEDS: FUROSEMIDE 40 MG TABLET PO (10:01)
[2021-01-29] MEDS: carvediloL 12.5 MG TABLET PO ×2 (10:01→22:52)
[2021-01-29] MEDS: HEPARIN SODIUM 5,000 UNITS/ML VIAL 5000 UNITS SUB-Q ×2 (10:03→22:22)
--- NOTE | 2021-01-29 10:55 | P.PNIM_ITS ---
Progress Note: A&P Assessment and Plan (1) Sepsis: Qualifiers: Sepsis acute organ dysfunction status: unspecified Sepsis type: sepsis due to unspecified organism Qualified Code(s): A41.9 - Sepsis, unspecified o rganism Code(s): A41.9 - Sepsis, unspecified organism Status: Acute Assessment and Plan: Sepsis due to acute UTI. Sepsis criteria met on presentation with fever of 103?, tachypnea, and leukocytosis. Lactic acid 1.9 * Blood cultures and urine cultures are pending. * Continue empiric antibiotic therapy with Rocephin and vancomycin. * Afebrile so far today. Leukocytosis improving. Tachypnea resolved (2) Acute UTI: Code(s): N39.0 - Urinary tract infection, site not specified Status: Acute Assessment and Plan: UA abnormal in presentation with complaints of dysuria. * Continue IV Rocephin * Urine cultures are pending. Await results and tailor antibiotics accordingly (3) End-stage renal disease on hemodialysis: Code(s): N18.6 - End stage renal disease; Z99.2 - Dependence on renal dialysis Status: Acute Assessment and Plan: She has had a [address] catheter in place for 10 months while awaiting peritoneal dialysis catheter placement. * Nephrology following for dialysis management * She did miss dialysis on Sunday and therefore will have dialysis today * Tunneled dialysis catheter infection considered, though she has no signs or symptoms to suggest infection in the surrounding area. Bacteremia secondary to catheter also considered, and blood cultures are pending. Vancomycin added on for coverage per nephrology recommendations. * Per vascular surgery recommendations, she requires a CTA of the brain and carotids for clearance prior to peritoneal dialysis catheter placement. This is being completed today. 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 Blood sugars have been elevated above target. * Continue Accu-Cheks, moderate dose sliding scale insulin, and hypoglycemic protocol * Continue home regimen of Levemir 22 units in the a.m. and 12 units in the p.m. * Diabetic diet * Monitor blood sugar trends and adjust medication regimen as needed (5) Anemia due to stage 4 chronic kidney disease: Code(s): N18.4 - Chronic kidney disease, stage 4 (severe); D63.1 - Anemia in chronic kidney disease Status: Acute Assessment and Plan: Hemoglobin and hematocrit appear consistent with baseline * Continue Retacrit infusions MWF per nephrology * Monitor CBC (6) Hypertension: Code(s): I10 - Essential (primary) hypertension Status: Acute Assessment and Plan: Blood pressure reviewed and has been well controlled. Last BP 141/84 * Continue home antihypertensives carvedilol and amlodipine * Monitor BP trends Subjective Date/time seen: 01/29/21 10:55 Interval history: Date of service: 01/29/2021 Jing Alfredo is a 75-year-old female with a history of ESRD on hemodialysis, CHF, CVA, diabetes mellitus, hypertension, anemia of chronic disease, and several other comorbidities who is seen in follow-up for sepsis secondary to [place]
--- NOTE | 2021-01-29 10:55 | PM.IMPN ---
Progress Note: A&P Assessment and Plan (1) Sepsis: Qualifiers: Sepsis acute organ dysfunction status: unspecified Sepsis type: sepsis due to unspecified organism Qualified Code(s): A41.9 - Sepsis, unspecified organism Code(s): A41.9 - Sepsis, unspecified organism Status: Acute Assessment and Plan: Sepsis due to acute UTI. Sepsis criteria met on presentation with fever of 103?, tachypnea, and leukocytosis. Lactic acid 1.9 Blood cultures and urine cultures are pending. Continue empiric antibiotic therapy with Rocephin and vancomycin. Afebrile so far today. Leukocytosis improving. Tachypnea resolved (2) Acute UTI: Code(s): N39.0 - Urinary tract infection, site not specified Status: Acute Assessment and Plan: UA abnormal in presentation with complaints of dysuria. Continue IV Rocephin Urine cultures are pending. Await results and tailor antibiotics accordingly (3) End-stage renal disease on hemodialysis: Code(s): N18.6 - End stage renal disease; Z99.2 - Dependence on renal dialysis Status: Acute Assessment and Plan: She has had a [address] lol dialysis catheter in place for 10 months while awaiting peritoneal dialysis catheter placement. Nephrology following for dialysis management She did miss dialysis on Sunday and therefore will have dialysis today Tunneled dialysis catheter infection considered, though she has no signs or symptoms to suggest infection in the surrounding area. Bacteremia secondary to catheter also considered, and blood cultures are pending. Vancomycin added on for coverage per nephrology recommendations. Per vascular surgery recommendations, she requires a CTA of the brain and carotids for clearance prior to peritoneal dialysis catheter placement. This is being completed today. 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 Blood sugars have been elevated above target. Continue Accu-Cheks, moderate dose sliding scale insulin, and hypoglycemic protocol Continue home regimen of Levemir 22 units in the a.m. and 12 units in the p.m. Diabetic diet Monitor blood sugar trends and adjust medication regimen as needed (5) Anemia due to stage 4 chronic kidney disease: Code(s): N18.4 - Chronic kidney disease, stage 4 (severe); D63.1 - Anemia in chronic kidney disease Status: Acute Assessment and Plan: Hemoglobin and hematocrit appear consistent with baseline Continue Retacrit infusions MWF per nephrology Monitor CBC (6) Hypertension: Code(s): I10 - Essential (primary) hypertension Status: Acute Assessment and Plan: Blood pressure reviewed and has been well controlled. Last BP 141/84 Continue home antihypertensives carvedilol and amlodipine Monitor BP trends Subjective Date/time seen: 01/29/21 10:55 Interval history: Date of service: 01/29/2021 Jing Alfredo is a 75-year-old female with a history of ESRD on hemodialysis, CHF, CVA, diabetes mellitus, hypertension, anemia of chronic disease, and several other comorbidities who is seen in follow-up for sepsis secondary to suspected UTI. She is feeling much better today. She was previously endorsing fevers and shaking chills with sweats but this seems to have resolved. No further chills or sweats. No more nausea or vomiting. Denies diarrhea. She does endorse dysuria. Denies hematuria, urgency, frequency. No suprapubic pain, flank pain, or back pain. She had a headache earlier this morning but it resolved. She has a good appetite
[2021-01-29] MEDS: INSULIN DETEMIR 100 UNITS/ML 22 UNITS SUB-Q (11:21)
[2021-01-29 11:28] LABS: Glucose Point of Care 187 mg/dl (65-105)
[2021-01-29 16:45] LABS: Glucose Point of Care 162 mg/dl (65-105)
[2021-01-29] MEDS: SODIUM CHLORIDE 0.9% IV 1,000 ML 100 ML IV CONT (18:00)
--- NOTE | 2021-01-29 18:31 | PC.NURSE ---
To dialysis per bed
[2021-01-29 20:31] LABS: Hepatitis B Surface Antigen Negative (Negative)
[2021-01-29 21:32] LABS: Hepatitis B Surface Anti Res Positive
--- NOTE | 2021-01-29 22:09 | PC.NURSE ---
Arrived from dialysis per bed. Voiced understanding with plan of care with no complaints.
[2021-01-29] MEDS: amLODIPine BESYLATE 5 MG TABLET PO (22:51)
[2021-01-29] MEDS: guanFACINE HCL 1 MG TABLET PO (22:53)
[2021-01-29 23:21] LABS: Glucose Point of Care 92 mg/dl (65-105)
[2021-01-29 23:21] LABS: Glucose Point of Care 69 mg/dl (65-105)
[2021-01-30] VITALS (11 sets, daily range): BP systolic 126–150; BP diastolic 40–52; PULSE 61–80; RESP 17–18; TEMP 35.9–37.4; O2SAT 90–96
[2021-01-30 00:55] LABS: Glucose Point of Care 189 mg/dl (65-105)
[2021-01-30 05:25] LABS: Hematocrit 26.7 % (37.0-47.0); Hemoglobin 8.8 g/dL (12.0-15.0); Mean Corpuscular Hemoglobin 33.3 pg (26-34); Mean Corpuscular Volume 101.1 fl (80-100); Mean Platelet Volume 9.7 fl (7.4-10.4); Platelet Count Result 158 k/mm3 (150-375); Red Blood Count 2.64 M/mm3 (4.2-5.4); Red Cell Distribution Width 13.2 % (11.5-14.5); White Blood Count 14.3 K/mm3 (4.5-10.0)
[2021-01-30] MEDS: LEVOTHYROXINE SODIUM 75 MCG TABLET PO (05:34)
[2021-01-30 05:42] LABS: Albumin Level 3.2 g/dL (3.5-5.1); Anion Gap 8 mmol/L (8-16); Blood Urea Nitrogen 19 mg/dL (7-17); Carbon Dioxide 34 mmol/L (22-30); Chloride 97 mmol/L (98-107); Estimated CRCL calculation 18 ml/min; Estimated Glomerular Filt Rate 18; Glucose 144 mg/dL (65-110); Phosphorus 3.5 mg/dL (2.5-4.5); Potassium 3.5 mmol/L (3.4-5.0); Sodium 139 mmol/L (137-145)
[2021-01-30 05:43] LABS: Hemoglobin A1C 8.5 % (<5.7)
[2021-01-30] MEDS: carvediloL 12.5 MG TABLET PO ×2 (08:15→20:37)
[2021-01-30] MEDS: ASPIRIN 81 MG ENTERIC TABLET PO (08:15)
[2021-01-30] MEDS: ROSUVASTATIN 10 MG TABLET 40 MG PO (08:16)
[2021-01-30] MEDS: OMEGA 3 POLYUNSAT FATTY ACIDS 1 GM CAP PO (08:16)
[2021-01-30] MEDS: FUROSEMIDE 40 MG TABLET PO (08:16)
[2021-01-30] MEDS: THERAPEUTIC MULTIVITAMINS/MINERALS TAB (*BKC) 1 TABLET PO (08:16)
[2021-01-30] MEDS: ISOSORBIDE MONONITRATE 60 MG TAB.ER.24H PO (08:16)
[2021-01-30] MEDS: CLOPIDOGREL BISULFATE 75 MG TABLET PO (08:16)
[2021-01-30] MEDS: CHOLECALCIFEROL 1,000 UNITS TABLET 2000 UNITS PO (08:16)
[2021-01-30] MEDS: INSULIN DETEMIR 100 UNITS/ML 22 UNITS SUB-Q (08:21)
[2021-01-30] MEDS: HEPARIN SODIUM 5,000 UNITS/ML VIAL 5000 UNITS SUB-Q ×2 (08:26→20:38)
--- NOTE | 2021-01-30 09:34 | PM.PNNEP ---
Progress Note: A&P Assessment and Plan (1) Fever: Code(s): R50.9 - Fever, unspecified Status: Acute Assessment and Plan: The patient has a fever of 103. She does have pyuria. blood cultures are negative so far. Urine culture pending. She is on ceftriaxone and vancomycin. (2) End-stage renal disease on hemodialysis: Code(s): N18.6 - End stage renal disease; Z99.2 - Dependence on renal dialysis Status: Acute Assessment and Plan: The patient is due for dialysis tomorrow. (3) CVA (cerebral vascular accident): Code(s): I63.9 - Cerebral infarction, unspecified Status: Acute Assessment and Plan: The patient had a stroke in the past. Carotid angiogram is done but pending (4) Renal osteodystrophy: Code(s): N25.0 - Renal osteodystrophy Status: Acute Assessment and Plan: phosphorus is normal (5) Erythropoietin deficiency anemia: Code(s): D63.1 - Anemia in chronic kidney disease Status: Acute Assessment and Plan: Will give Epogen on dialysis hemoglobin only 8.8. (6) Coronary disease: Code(s): I25.10 - Atherosclerotic heart disease of [place] coronary artery without angina pectoris Status: Acute Assessment and Plan: No chest pain (7) Diabetes mellitus with hyperglycemia, with long-term current use of insulin: Qualifiers: Diabetes mellitus type: type 2 Qualified Code(s): E11.65 - Type 2 diabetes mellitus with hyperglycemia; Z79.4 - retirement (current) use of insulin Code(s): E11.65 - Type 2 diabetes mellitus with hyperglycemia; Z79.4 - retirement (current) use of insulin Status: Acute Assessment and Plan: A1c is 8.5. On Accu-Cheks and sliding-scale insulin Subjective Date/time seen: 01/30/21 09:34 Interval history: Patient feels better. No more chills. No chest pain or shortness of breath she had dialysis yesterday and it went well Review of Systems Cardiovascular: Cardiovascular: Reports no additional cardiovascular complaints Respiratory: Respiratory: Reports no additional respiratory complaints Gastrointestinal: Gastrointestinal: Reports no additional gastrointestinal complaints Genitourinary: Genitourinary: Reports no additional female genitourinary complaints Exam Narrative: WDWN in NAD skin no rash head ncat lungs clear cor reg no rub abd BS+ nontender and soft ext no edema. Objective Data Vital Signs Vital Signs: Vital Signs - 24 hr 01/29/21 10:01 01/29/21 12:00 01/29/21 14:00 Temperature 36.5 C Pulse Rate 68 90 63 Respiratory Rate 16 Blood Pressure 118/44 L Pulse Oximetry 95 01/29/21 16:00 01/29/21 18:29 01/29/21 18:37 Temperature 36.6 C Pulse Rate 61 64 63 Respiratory Rate 18 Blood Pressure 128/58 L 137/52 L Pulse Oximetry 01/29/21 19:00 01/29/21 19:15 01/29/21 19:30 Temperature Pulse Rate 66 66 69 Respiratory Rate Blood Pressure 143/57 H 127/52 L 146/64 H Pulse Oximetry 01/29/21 19:45 01/29/21 20:00 01/29/21 20:30 Temperature Pulse Rate 70 69 73 Respiratory Rate Blood Pressure 156/62 H 160/69 H 162/50 H Pulse Oximetry 01/29/21 20:45 01/29/21 21:00 01/29/21 21:15 Temperature Pulse Rate 75 81 75 Respiratory Rate Blood Pressure 160/56 H 154/66 H 161/65 H Pulse Oximetry 01/29/21 21:37 01/29/21 21:50 01/29/21 22:00 Temperature 36.8 C 36.1 C L Pulse Rate 75 76 80 Respiratory Rate 18 16 Blood Pressure 163/65 H 159/61 H 148/52 H Pulse Oximetry 93 01/29/21 22:52 01/30/21 00:00 01/30/21 00:57 Temperature 36.6 C Pulse Rate 80 74 74 Respiratory Rate 18 Blood Pressure 150/50 H Pulse Oximetry 94 01/30/21 04:00 01/30/21 05:37 01/30/21 08:15 Temperature 36.3 C L Pulse Rate 61 62 66 Respiratory Rate 18 Blood Pressure 138/52 L Pulse Oximetry 96 Intake/Output Intake/Output: Intake & Output 10
[2021-01-30 10:02] LABS: Glucose Point of Care 107 mg/dl (65-105)
--- NOTE | 2021-01-30 10:22 | P.PNIM_ITS ---
Progress Note: A&P Assessment and Plan (1) Sepsis: Qualifiers: Sepsis acute organ dysfunction status: unspecified Sepsis type: sepsis due to unspecified organism Qualified Code(s): A41.9 - Sepsis, unspecified o rganism Code(s): A41.9 - Sepsis, unspecified organism Status: Acute Assessment and Plan: Sepsis due to acute UTI. Sepsis criteria met on presentation with fever of 103?, tachypnea, and leukocytosis. Lactic acid 1.9 * Blood cultures pending, negative to date. Urine cultures are pending. * Continue empiric antibiotic therapy with Rocephin and vancomycin. * Afebrile >24 hours. Leukocytosis improving. Tachypnea resolved (2) Acute UTI: Code(s): N39.0 - Urinary tract infection, site not specified Status: Acute Assessment and Plan: UA abnormal in presentation with complaints of dysuria. * Continue IV Rocephin * Urine cultures are pending. Await results and tailor antibiotics accordingly (3) End-stage renal disease on hemodialysis: Code(s): N18.6 - End stage renal disease; Z99.2 - Dependence on renal dialysis Status: Acute Assessment and Plan: She has had a tunneled dialysis catheter in place for 10 months while awaiting peritoneal dialysis catheter placement. * Nephrology following for dialysis management * She had dialysis yesterday and will be due again tomorrow * Bacteremia secondary to tunneled dialysis catheter considered as infectious so urce, however blood cultures negative today. IV Vancomycin added per Nephrology recommendations for coverage and will continue while awaiting culture results. * Per vascular surgery recommendations, she requires a CTA of the brain and carotids for clearance prior to peritoneal dialysis catheter placement. This was completed but awaiting interpretation. (4) Diabetes mellitus with hyperglycemia, with long-term current use of insulin: Qualifiers: Diabetes mellitus type: type 2 Qualified Code(s): E11.65 - Type 2 diabetes mellitus with hyperglycemia; Z79.4 - director long term care (current) use of insulin Code(s): E11.65 - Type 2 diabetes mellitus with hyperglycemia; Z79.4 - halfway (current) use of insulin Status: Acute Assessment and Plan: A1c is 8.5. Blood sugars have been well controlled today * Continue Accu-Cheks, moderate dose sliding scale insulin, and hypoglycemic protocol * Continue home regimen of Levemir 22 units in the a.m. and 12 units in the p.m. * Diabetic diet * Monitor blood sugar trends and adjust medication regimen as needed (5) Anemia due to stage 4 chronic kidney disease: Code(s): N18.4 - Chronic kidney disease, stage 4 (severe); D63.1 - Anemia in chronic kidney disease Status: Acute Assessment and Plan: Hemoglobin and hematocrit appear consistent with baseline * Continue Retacrit infusions MWF per nephrology * Monitor CBC (6) Hypertension: Code(s): I10 - Essential (primary) hypertension Status: Acute Assessment and Plan: Blood pressure reviewed and has been well controlled. Last BP 138/52 * Continue home antihypertensives carvedilol and amlodipine * Monitor BP trends Subjective Date/time seen: 01/30/21 10:22 Interval history: Date of service: 01/30/2021 Jing Alfredo is a 75-year-old female with a history of ESRD on hemodialysis, CHF, CVA, diabetes mellitus, hypertension, anemia of chronic disease, and several other comorbidities who is seen in follow-up for sepsis secondary to suspected UTI. She is feeling very w
--- NOTE | 2021-01-30 10:22 | PM.IMPN ---
Progress Note: A&P Assessment and Plan (1) Sepsis: Qualifiers: Sepsis acute organ dysfunction status: unspecified Sepsis type: sepsis due to unspecified organism Qualified Code(s): A41.9 - Sepsis, unspecified organism Code(s): A41.9 - Sepsis, unspecified organism Status: Acute Assessment and Plan: Sepsis due to acute UTI. Sepsis criteria met on presentation with fever of 103?, tachypnea, and leukocytosis. Lactic acid 1.9 Blood cultures pending, negative to date. Urine cultures are pending. Continue empiric antibiotic therapy with Rocephin and vancomycin. Afebrile >24 hours. Leukocytosis improving. Tachypnea resolved (2) Acute UTI: Code(s): N39.0 - Urinary tract infection, site not specified Status: Acute Assessment and Plan: UA abnormal in presentation with complaints of dysuria. Continue IV Rocephin Urine cultures are pending. Await results and tailor antibiotics accordingly (3) End-stage renal disease on hemodialysis: Code(s): N18.6 - End stage renal disease; Z99.2 - Dependence on renal dialysis Status: Acute Assessment and Plan: She has had a tunneled dialysis catheter in place for 10 months while awaiting peritoneal dialysis catheter placement. Nephrology following for dialysis management She had dialysis yesterday and will be due again tomorrow Bacteremia secondary to tunneled dialysis catheter considered as infectious source, however blood cultures negative today. IV Vancomycin added per Nephrology recommendations for coverage and will continue while awaiting culture results. Per vascular surgery recommendations, she requires a CTA of the brain and carotids for clearance prior to peritoneal dialysis catheter placement. This was completed but awaiting interpretation. (4) Diabetes mellitus with hyperglycemia, with long-term current use of insulin: Qualifiers: Diabetes mellitus type: type 2 Qualified Code(s): E11.65 - Type 2 diabetes mellitus with hyperglycemia; Z79.4 - director long term care (current) use of insulin Code(s): E11.65 - Type 2 diabetes mellitus with hyperglycemia; Z79.4 - director long term care (current) use of insulin Status: Acute Assessment and Plan: A1c is 8.5. Blood sugars have been well controlled today Continue Accu-Cheks, moderate dose sliding scale insulin, and hypoglycemic protocol Continue home regimen of Levemir 22 units in the a.m. and 12 units in the p.m. Diabetic diet Monitor blood sugar trends and adjust medication regimen as needed (5) Anemia due to stage 4 chronic kidney disease: Code(s): N18.4 - Chronic kidney disease, stage 4 (severe); D63.1 - Anemia in chronic kidney disease Status: Acute Assessment and Plan: Hemoglobin and hematocrit appear consistent with baseline Continue Retacrit infusions MWF per nephrology Monitor CBC (6) Hypertension: Code(s): I10 - Essential (primary) hypertension Status: Acute Assessment and Plan: Blood pressure reviewed and has been well controlled. Last BP 138/52 Continue home antihypertensives carvedilol and amlodipine Monitor BP trends Subjective Date/time seen: 01/30/21 10:22 Interval history: Date of service: 01/30/2021 Jing Alfredo is a 75-year-old female with a history of ESRD on hemodialysis, CHF, CVA, diabetes mellitus, hypertension, anemia of chronic disease, and several other comorbidities who is seen in follow-up for sepsis secondary to suspected UTI. She is feeling very well today. Denies fevers, chills, sweats, nausea, vomiting. She is eating and drinking well. She slept well last night. Denies dizziness or lightheadedness. No shortness breath, cough, or chest pain. She reports she has urinated 2-3 times today and denies dysuria, urgency, frequency, hematuria. No flank pain or back pain. She has been eating well. She has no additional concerns at this time. Review of Sy
[2021-01-30 11:54] LABS: Glucose Point of Care 175 mg/dl (65-105)
[2021-01-30 16:50] LABS: Glucose Point of Care 169 mg/dl (65-105)
[2021-01-30] MEDS: guanFACINE HCL 1 MG TABLET PO (20:37)
[2021-01-30] MEDS: INSULIN DETEMIR 100 UNITS/ML 12 UNITS SUB-Q (20:38)
[2021-01-30 20:51] LABS: Glucose Point of Care 192 mg/dl (65-105)
[2021-01-31] VITALS: PULSE 70
[2021-01-31 04:00] VITALS: PULSE 66
[2021-01-31 04:10] VITALS: BP 161/68; PULSE 92; RESP 17; TEMP 36.3; O2SAT 91
--- NOTE | 2021-01-31 04:27 | PC.NURSE ---
Blood sugar is 55. She is alert and oriented. Gave her tracee crackers and orange juice. Will recheck blood sugar in 15mins.
[2021-01-31 05:01] LABS: Glucose Point of Care 55 mg/dl (65-105)
[2021-01-31 05:01] LABS: Glucose Point of Care 108 mg/dl (65-105)
[2021-01-31 05:46] LABS: Basophils Absolute Auto 0.1 K/mm3 (0.0-0.1); Basophils Percent Auto 0.4 % (0.2-1.2); Eosinophils Absolute Auto 0.3 K/mm3 (0-0.3); Eosinophils Percent Auto 2.3 % (0-4.4); Hematocrit 26.7 % (37.0-47.0); Hemoglobin 8.8 g/dL (12.0-15.0); Immature Granulocyte Percent A 0.7 % (0-0.5); Lymphocytes Absolute Auto 0.78 K/mm3 (0.9-3.2); Lymphocytes Percent Auto 5.6 % (18.3-44.2); Mean Corpuscular Hemoglobin 32.8 pg (26-34); Mean Corpuscular Volume 99.6 fl (80-100); Mean Platelet Volume 9.2 fl (7.4-10.4); Monocytes Absolute Auto 0.8 K/mm3 (0.1-0.6); Neutrophils Absolute Auto 11.9 K/mm3 (1.3-6.7); Platelet Count Result 184 k/mm3 (150-375); Red Blood Count 2.68 M/mm3 (4.2-5.4); White Blood Count 14.1 K/mm3 (4.5-10.0)
[2021-01-31] MEDS: LEVOTHYROXINE SODIUM 75 MCG TABLET PO (06:03)
[2021-01-31 06:06] LABS: Anion Gap 9 mmol/L (8-16); Blood Urea Nitrogen 28 mg/dL (7-17); Carbon Dioxide 32 mmol/L (22-30); Chloride 95 mmol/L (98-107); Estimated CRCL calculation 11 ml/min; Estimated Glomerular Filt Rate 10; Glucose 144 mg/dL (65-110); Phosphorus 3.4 mg/dL (2.5-4.5); Potassium 3.3 mmol/L (3.4-5.0); Sodium 136 mmol/L (137-145)
--- NOTE | 2021-01-31 07:05 | PM.PNNEP ---
Progress Note: A&P Assessment and Plan (1) Fever: Code(s): R50.9 - Fever, unspecified Status: Acute Assessment and Plan: The patient has a fever of 103. She does have pyuria. no fevers. White cell count gradually coming down. blood cultures are negative so far. Urine culture Negative. Throat culture grew strep. She is on ceftriaxone and vancomycin. If patient goes home today she should get treatment at [facility]. She would need to be there by noon. (2) End-stage renal disease on hemodialysis: Code(s): N18.6 - End stage renal disease; Z99.2 - Dependence on renal dialysis Status: Acute Assessment and Plan: The patient is due for dialysis tomorrow. (3) CVA (cerebral vascular accident): Code(s): I63.9 - Cerebral infarction, unspecified Status: Acute Assessment and Plan: The patient had a stroke in the past. Carotid angiogram is done but pending (4) Renal osteodystrophy: Code(s): N25.0 - Renal osteodystrophy Status: Acute Assessment and Plan: phosphorus is normal (5) Erythropoietin deficiency anemia: Code(s): D63.1 - Anemia in chronic kidney disease Status: Acute Assessment and Plan: Will give Epogen on dialysis hemoglobin stable at 8.8. (6) Coronary disease: Code(s): I25.10 - Atherosclerotic heart disease of [place] coronary artery without angina pectoris Status: Acute Assessment and Plan: No chest pain (7) Diabetes mellitus with hyperglycemia, with long-term current use of insulin: Qualifiers: Diabetes mellitus type: type 2 Qualified Code(s): E11.65 - Type 2 diabetes mellitus with hyperglycemia; Z79.4 - watermelon inspector (current) use of insulin Code(s): E11.65 - Type 2 diabetes mellitus with hyperglycemia; Z79.4 - long-term (current) use of insulin Status: Acute Assessment and Plan: A1c is 8.5. On Accu-Cheks and sliding-scale insulin Subjective Date/time seen: 01/31/21 07:05 Interval history: Patient feels better. No more chills. No chest pain or shortness of breath She had a low sugar last night because she did not eat very much yesterday. She is due for dialysis today Exam Narrative: WDWN in NAD skin no rash or subQ nodules head ncat lungs clear to auscultation cor reg no rub abd BS+ nontender and soft ext no edema. Objective Data Vital Signs Vital Signs: Vital Signs - 24 hr 01/30/21 08:15 01/30/21 10:47 01/30/21 12:00 Temperature Pulse Rate 61 69 Respiratory Rate Blood Pressure Pulse Oximetry 92 01/30/21 14:00 01/30/21 16:00 01/30/21 20:00 Temperature 37.4 C 35.9 C L Pulse Rate 70 66 78 Respiratory Rate 18 17 Blood Pressure 130/40 L 126/40 L Pulse Oximetry 92 90 01/30/21 20:37 01/31/21 00:00 01/31/21 04:00 Temperature Pulse Rate 80 70 66 Respiratory Rate Blood Pressure Pulse Oximetry 01/31/21 04:10 Temperature 36.3 C L Pulse Rate 92 Respiratory Rate 17 Blood Pressure 161/68 H Pulse Oximetry 91 Intake/Output Intake/Output: Intake & Output 01/28/21 01/29/21 01/30/21 01/31/21 23:59 23:59 23:59 23:59 Intake Total 1140 510 250 Output Total 300 Balance 840 510 250 Meds/Results Medications: Active Medications Generic Name Dose Route Start Last Admin Trade Name Freq PRN Reason Stop Dose Admin Acetaminophen 650 mg 01/29/21 01:33 01/29/21 22:23 Acetaminophen 325 Mg Tablet PO 650 mg Q4H PRN Administration Mild Pain (1-3) or Fever Amlodipine Besylate 5 mg 01/29/21 21:00 01/30/21 20:37 Amlodipine Besylate 5 Mg Tablet PO Not Given HS OSIEL Aspirin 81 mg 01/29/21 09:00 01/30/21 08:15 Aspirin 81 Mg Enteric Tablet PO 81 mg DAILY OSIEL Administration Carvedilol 12.5 mg 01/29/21 09:00 01/30/21 20:37 Carvedilol 12.5 Mg Tablet PO 12.5 mg Q12HR OSIEL Administration Clopidogrel Bisu
[2021-01-31 08:00] VITALS: PULSE 61
[2021-01-31 09:00] VITALS: PULSE 64
[2021-01-31] MEDS: POTASSIUM CHLORIDE 20 MEQ TABLET PO (09:00)
[2021-01-31] MEDS: ASPIRIN 81 MG ENTERIC TABLET PO (09:00)
[2021-01-31] MEDS: carvediloL 12.5 MG TABLET PO (09:00)
[2021-01-31] MEDS: CHOLECALCIFEROL 1,000 UNITS TABLET 2000 UNITS PO (09:01)
[2021-01-31] MEDS: CLOPIDOGREL BISULFATE 75 MG TABLET PO (09:01)
[2021-01-31] MEDS: FUROSEMIDE 40 MG TABLET PO (09:01)
[2021-01-31] MEDS: HEPARIN SODIUM 5,000 UNITS/ML VIAL 5000 UNITS SUB-Q (09:01)
[2021-01-31] MEDS: OMEGA 3 POLYUNSAT FATTY ACIDS 1 GM CAP PO (09:02)
[2021-01-31] MEDS: ROSUVASTATIN 10 MG TABLET 40 MG PO (09:02)
[2021-01-31] MEDS: ISOSORBIDE MONONITRATE 60 MG TAB.ER.24H PO (09:02)
[2021-01-31] MEDS: THERAPEUTIC MULTIVITAMINS/MINERALS TAB (*BKC) 1 TABLET PO (09:02)
--- NOTE | 2021-01-31 09:32 | PC.NURSE ---
Isabella Lewis PA notified of pt refusing levemir this am
--- NOTE | 2021-01-31 10:23 | PM.DS ---
DS: Admitting Diagnosis Discharge Date 01/31/2021 Admitting Diagnosis Fever, UTI DS: Discharge Diagnosis Discharge Diagnosis (1) Sepsis: Qualifiers: Sepsis acute organ dysfunction status: unspecified Sepsis type: sepsis due to unspecified organism Qualified Code(s): A41.9 - Sepsis, unspecified organism Code(s): A41.9 - Sepsis, unspecified organism Status: Acute Assessment and Plan: Resolved. Sepsis due to acute UTI. Sepsis criteria met on presentation with fever of 103?, tachypnea, and leukocytosis. Lactic acid 1.9 Preliminary blood cultures negative to date and final cultures will be monitored. Patient remained afebrile >48 hours with improved leukocytosis. (2) Acute UTI: Code(s): N39.0 - Urinary tract infection, site not specified Status: Acute Assessment and Plan: UA abnormal on presentation with complaints of dysuria. Initiated on IV Rocephin Urine culture unfortunately with growth of mixed john paul suggesting probable contamination with no further testing to be performed. She did have significant clinical improvement with IV Rocephin Continue p.o. cefdinir to complete a 7 day course of antibiotic therapy (3) End-stage renal disease on hemodialysis: Code(s): N18.6 - End stage renal disease; Z99.2 - Dependence on renal dialysis Status: Acute Assessment and Plan: She has had a tunneled dialysis catheter in place for 10 months while awaiting peritoneal dialysis catheter placement. Nephrology following for dialysis management; dialysis schedule was maintained during this admission She was discharged from this facility and went directly to dialysis at noon per Nephrology instructions Bacteremia secondary to tunneled dialysis catheter considered as infectious source, however blood cultures remain negative. She was initially started on IV vancomycin per Nephrology recommendations which was discontinued following negative blood cultures. Discussed with Nephrology. Will continue to monitor cultures as above Per vascular surgery recommendations, she required a CTA of the brain and carotids for clearance prior to peritoneal dialysis catheter placement. This was completed and showed 46% stenosis of the proximal right internal carotid artery and 30% stenosis of the proximal left internal carotid artery. Per request of her vascular surgeon, Dr. Myers, she was given a disc with this imaging to bring to her appointment on 02/10/21 for review. (4) Diabetes mellitus with hyperglycemia, with long-term current use of insulin: Qualifiers: Diabetes mellitus type: type 2 Qualified Code(s): E11.65 - Type 2 diabetes mellitus with hyperglycemia; Z79.4 - oil heaterman (current) use of insulin Code(s): E11.65 - Type 2 diabetes mellitus with hyperglycemia; Z79.4 - oil heaterman (current) use of insulin Status: Acute Assessment and Plan: A1c is 8.5. Blood sugars well controlled during hospital stay Managed with Accu-Cheks, moderate dose sliding scale insulin, and hypoglycemic protocol She did have an episode of hypoglycemia on the morning of discharge down to 55. Promptly resolved with drinking juice. She reports she was not interested in eating the food at this facility and overall had poor appetite, which was the likely cause of her hypoglycemia She denies low blood sugars at home and reports she is compliant with monitoring her blood sugars. Continue home regimen of Levemir 22 units in the a.m. and 12 units in the p.m. encouraged her to eat regularly throughout the day to avoid further episodes of hypoglycemia. Instructed to monitor her blood sugars 3 times daily and record. Follow-up with PCP in 1-2 weeks for review and further management (5) Anemia due to stage 4 chronic kidney disease: Code(s): N18.4 - Chronic kidney disease, stage 4 (severe); D63.1 - Anemia in chronic kidney disease Status: Acute Assessment and P
[2021-02-03 13:54] LABS: Hepatitis B Core Ab Total Nonreactive (Nonreactive)
== END 2021-01-31 10:48 | disposition home or self-care (01) | DRG 871 ==
LOC: ANHED 01-29 01:42 → ANH2MED 01-29 03:34
PROVIDERS: Internal Medicine Nephrology; Admitting Provider Internal Medicine; Emergency Provider Emergency Medicine; PCP Internal Medicine; Visit Provider Physician Assistant
DX: A41.9 Sepsis, unspecified organism (principal); N18.6 End stage renal disease; N39.0 Urinary tract infection, site not specified; I13.2 Hypertensive heart and chronic kidney disease with heart failure and with stage 5 chronic kidney disease, or end stage renal disease; D63.1 Anemia in chronic kidney disease; E11.22 Type 2 diabetes mellitus with diabetic chronic kidney disease; I50.9 Heart failure, unspecified; Z99.2 Dependence on renal dialysis; Z91.15 Patient's noncompliance with renal dialysis; E11.40 Type 2 diabetes mellitus with diabetic neuropathy, unspecified; E78.2 Mixed hyperlipidemia; E03.9 Hypothyroidism, unspecified; N25.0 Renal osteodystrophy; I25.10 Atherosclerotic heart disease of native coronary artery without angina pectoris; E11.65 Type 2 diabetes mellitus with hyperglycemia; I27.20 Pulmonary hypertension, unspecified; I65.23 Occlusion and stenosis of bilateral carotid arteries; E04.1 Nontoxic single thyroid nodule; Z79.4 Long term (current) use of insulin; Z79.82 Long term (current) use of aspirin; Z79.899 Other long term (current) drug therapy; Z86.73 Personal history of transient ischemic attack (TIA), and cerebral infarction without residual deficits; Z87.891 Personal history of nicotine dependence; Z88.2 Allergy status to sulfonamides; Z95.5 Presence of coronary angioplasty implant and graft
CPT/HCPCS: 36415; 70496; 70498; 71045; 80053; 80069; 81001; 82948; 83036; 83605; 83735; 84443; 84484; 85025; 85027; 85610; 85730; 86704; 86706; 87040; 87081; 87086; 87088; 87340; 87804; 87880; 93005; 96365; 99285; A9270; G0257; J0696; J1644; J1815; J3370; J7030; J7040; Q9967

== ENCOUNTER 2021-07-12 08:52 | Outpatient (CLI) | payer MEDICARE, SELFPAY ==
--- NOTE | ~2021-07-12 | XR_ITS ---
EXAMINATION: XR toe 1st LT min 2V DATE: 07/12/2021 09:36 INDICATION: Diabetic with gangrene/necrosis at the left great toe TECHNIQUE: Dorsal plantar, lateral and 2 oblique views of the left first toe were obtained. COMPARISON: None FINDINGS: Diffuse osteopenia. Bone alignment is normal. No fracture. Polyarticular osteoarthritis, mild to mode rate severity at the first metatarsophalangeal and a few tarsal metatarsal joints and mild at multipl e interphalangeal joints. No cortical erosions or else reaction to suggest osteomyelitis. No evident soft tissue gas or radiopaque foreign bodies. IMPRESSION: 1. No evident osteomyelitis. 2. 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 Reviewed, dictated and finalized at location B.
== END 2021-07-12 08:53 | disposition home or self-care (01) ==
LOC: ANHIMG 08:55
PROVIDERS: PCP Internal Medicine; Visit Provider Nurse Practitioner
DX: I96 Gangrene, not elsewhere classified (principal); M19.072 Primary osteoarthritis, left ankle and foot
CPT/HCPCS: 73660

== ENCOUNTER 2021-08-11 10:18 | Inpatient (IN) | payer MEDICARE, SELFPAY ==
[2021-08-11] VITALS (10 sets, daily range): BP systolic 139–159; BP diastolic 44–70; PULSE 52–100; RESP 13–19; TEMP 35.4; O2SAT 99–100; BMI 27.0
--- NOTE | ~2021-08-11 | XR_ITS ---
EXAMINATION: XR chest 1V portable INDICATION: Shortness of breath TECHNIQUE: Portable AP chest at 1150 hours COMPARISON: 08/11/2021 FINDINGS: The lungs are free of acute opacities. There is no pleural effusion or pneumothorax. The ca rdiomediastinal silhouette is normal. IMPRESSION: 1. No acute cardiopulmonary abnormality. Reviewed, dictated and finalized at location A.
--- NOTE | ~2021-08-11 | US_ITS ---
EXAMINATION: US art doppler w press LE BI DATE: 08/13/2021 13:58 INDICATION: Slowly healing foot ulcers. Diabetes. TECHNIQUE: Segmental pressures and plethysmographic and Doppler waveforms of the brachial and lower e xtremity arteries were obtained. COMPARISON: None. FINDINGS: Right and left brachial artery pressures of 148 mm Hg and 135 mm Hg, respectively, are concordant (no rmal difference <= 30 mmHg). The right ankle-brachial index (HATTIE) was unable to be obtained due to inability to occlude the vessel s at the right ankle normal >= 0.9-1). The right great toe-brachial index (TBI) is 0.43 (normal >= 0. 6-0.8). Arterial waveforms are biphasic with normal systolic upstrokes throughout the arteries of the right lower limb. The left HATTIE is at least 0.51 with the left posterior tibial artery unable to be occluded. The left T BI is unable to be obtained due to prior left great toe amputation. Arterial waveforms are biphasic w ith normal systolic upstrokes throughout the arteries of the left lower limb. IMPRESSION: 1. Bilateral arterial occlusive disease with mildly decreased right TBI and no greater than moderate left HATTIE. Reviewed, dictated and finalized at location A.
--- NOTE | ~2021-08-11 | XR_ITS ---
EXAMINATION: XR chest port-a-cath/central DATE: 08/23/2021 13:06 INDICATION: Central line placement. TECHNIQUE: A single frontal view of the chest was obtained. COMPARISON: Chest single view 08/19/2021 FINDINGS: There is a diffuse interstitial pattern in the lungs, consistent mild pulmonary edema. No p leural effusion or pneumothorax. The heart size is normal. A left internal jugular central venous cat heter is seen with tip in the right atrium. IMPRESSION: 1. Central line tip in right atrium. 2. Mild pulmonary edema. Reviewed, dictated and finalized at location B.
--- NOTE | ~2021-08-11 | XR_ITS ---
EXAMINATION: XR fl guide central line place DATE: 08/23/2021 12:55 INDICATION: Tunneled dialysis catheter insertion TECHNIQUE: Single frontal fluoroscopic image of the central chest was obtained during procedure perfo rmed by Dr. Valenzuela. Radiologist was not present for the imaging or procedure. The amount of fluorosc opy time used during this procedure was 1.2 minutes. COMPARISON: None FINDINGS: Distal tip of a large-bore dual-lumen central venous catheter projects over the right atrium. The cou rse of the catheter suggests a left internal jugular catheter. Visualized portion of the heart and ce ntral mediastinum appears normal. IMPRESSION: 1. Fluoroscopy utilized during placement of a central venous catheter. See procedure note and subsequ ent post procedure radiograph for further detail. Reviewed, dictated and finalized at location A. IMPRESSION: 1. Fluoroscopy utilized during placement of a central venous catheter. See proc edure note and subsequent post procedure radiograph for further detail.
--- NOTE | ~2021-08-11 | US_ITS ---
EXAMINATION: US carotid duplex BI DATE: 08/13/2021 13:59 INDICATION: Syncope TECHNIQUE: Grayscale, color Doppler, and pulsed Doppler images of the cervical carotid arteries were obtained. The degree of vessel stenosis is placed in one of the following categories: normal, <50%, 5 0-69%, >=70% but less than near-occlusion, near-occlusion, or total occlusion. Note that percent sten osis relative to normal distal artery lumen diameter is indirectly measured from velocity measurement s as described by Musa, et al. Radiology 2003; [id number]. COMPARISON: 04/23/2020 FINDINGS: RIGHT: The right common carotid artery (CCA) peak systolic velocity (PSV) is 89.9 cm/s. The right internal c arotid artery (ICA) PSV is 190.4 cm/s. The right ICA end-diastolic velocity (EDV) is 44.9 cm/s. The r ight ICA/CCA PSV ratio is 2.1. Grayscale and color Doppler images yield an estimate of greater than o r equal to 50% diameter reduction from plaque in the ICA. The external carotid artery (ECA) PSV is 17 4 cm/s. There is antegrade flow in the right vertebral artery. LEFT: The left CCA PSV is 85.7 cm/s. The left ICA PSV is 188 cm/s. The left ICA EDV is 48.6 cm/s. The left ICA/CCA PSV ratio is 2.2. Grayscale and color Doppler images yield an estimate of greater than or equ al to 50% diameter reduction from plaque in the ICA. The ECA PSV is 124 cm/s. There is antegrade flow in the left vertebral artery. IMPRESSION: 1. 50-69% stenosis in the right internal carotid artery. 2. 50-69% stenosis in the left internal carotid artery. Reviewed, dictated and finalized at location A.
--- NOTE | ~2021-08-11 | XR_ITS ---
EXAMINATION: XR chest 2V DATE: 08/11/2021 11:18 INDICATION: Weakness TECHNIQUE: frontal and lateral views of the chest were obtained. COMPARISON: Chest radiograph dated 01/28/21 FINDINGS: The lungs are clear with no focal airspace opacities, pulmonary edema, pleural effusion or pneumothor ax. The cardiomediastinal silhouette is normal. Calcified mitral annular calcification. There is free intraperitoneal gas below the right hemidiaphragm. Atherosclerotic calcifications at the bilateral c arotid bulbs and along the aorta. Mild thoracic spondylosis. IMPRESSION: 1. Free intraperitoneal gas below the right hemidiaphragm consistent with perforated viscus. Recommen d contrast enhanced CT of the abdomen and pelvis. 2. No acute cardiopulmonary disease. Reviewed, dictated and finalized at location A. IMPRESSION: 1. Free intraperitoneal gas below the right hemidiaphragm consistent with perfo rated viscus. Recommend contrast enhanced CT of the abdomen and pelvis. 2. No acute cardiopulmonary disease.
--- NOTE | ~2021-08-11 | XR_ITS ---
EXAMINATION: XR sm bowel follow through WS DATE: 08/18/2021 12:11 INDICATION: Carcinoid tumor on CT TECHNIQUE: Final Armature Tester radiograph(s) of the abdomen was/were obtained. Oral contrast was administered, and sequential radiographs of the abdomen were obtained until oral contrast was noted to be in the proxi mal colon. Spot fluoroscopic images of the small bowel were obtained. Fluoroscopy exposure time was 1 .6 minutes. The DAP for this procedure was 38.948 Gycm2. COMPARISON: CT, 08/13/2021 FINDINGS: Final Armature Tester images unremarkable. Transit time from the stomach to proximal colon was approximatel y 2.5 hours. There is no dilated small bowel. There appears to be a stricture of the ileum in the rig ht lower quadrant. No mass effect was observed with real-time fluoroscopy. IMPRESSION: 1. Apparent stricture of the ileum in the right lower quadrant. Reviewed, dictated and finalized at location A.
--- NOTE | ~2021-08-11 | CT_ITS ---
EXAMINATION: CT brain wo con DATE: 08/11/2021 12:02 INDICATION: Dizziness TECHNIQUE: Computed tomography (CT) of the head was performed without intravenous contrast. Sagittal and coronal reconstructions were performed. The mA was adjusted according to patient size. Iterative reconstruction technique was employed. The dose-length product was 605.33 mGy-cm. COMPARISON: head CT dated 01/29/2021 FINDINGS: No acute intracranial hemorrhage, acute infarction or abnormal extra axial fluid collection. Prominen t perivascular space at the inferior left basal ganglia. There is wall to moderate scattered white ma tter hypoattenuation consistent with chronic small vessel ischemic disease. Symmetric prominence of t he sulci and ventricles consistent with mild age-appropriate diffuse cerebral volume loss. Ventricles are normal and symmetric. No mass/mass effect. The orbits, paranasal sinuses and mastoid air cells a re normal. IMPRESSION: 1. No acute intracranial process. 2. Age-related changes including mild diffuse on loss and mild to moderate scattered white matter hyp oattenuation consistent with chronic small vessel ischemic disease. Reviewed, dictated and finalized at location A. IMPRESSION: 1. No acute intracranial process. 2. Age-related changes including mild diffuse on loss and mild to moderate scat tered white matter hypoattenuation consistent with chronic small vessel ischemi c disease.
--- NOTE | ~2021-08-11 | CT_ITS ---
EXAMINATION: CT abdomen pelvis w con INDICATION: Free intraperitoneal gas TECHNIQUE: Computed tomographic images of the abdomen and pelvis were obtained after the administrati on of 100 cc of Omnipaque 300 intravenous contrast. The dose-length product (DLP) was 1019.14 mGy-cm. Automated exposure control and iterative reconstruction technique were employed. COMPARISON: None available FINDINGS: Minimal dependent atelectasis is present in the lung bases. The heart size is normal. There is calcified coronary artery atherosclerosis and calcification of the mitral valve. A small volume o f ascites is present. There is no free intraperitoneal gas in the nondependent portion of the abdomen . A peritoneal dialysis catheter enters the left abdomen and coils in the right pelvis. Stones are pr esent in the nondistended gallbladder. The liver, spleen, pancreas, and adrenal glands are normal. Th ere is calcified atherosclerosis of the aorta and many of the other arteries. There is a 5 mm cyst of the right kidney. The left kidney is unremarkable. No pathologically enlarged abdominal or pelvic ly mph nodes are identified. There are no dilated loops of bowel. Colonic diverticulosis is present with out evidence of diverticulitis. A moderate volume of colonic stool is present. There is a 1.7 cm spic ulated mass in the small bowel mesentery of the right lower quadrant (image 119). IMPRESSION: 1. Free intraperitoneal gas and ascites, likely related to peritoneal dialysis. 2. 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 Recommend surgical consultation. 3. Cholelithiasis. Reviewed, dictated and finalized at location A. IMPRESSION: 1. Free intraperitoneal gas and ascites, likely related to peritoneal dialysis. 2. Spiculated mass in the small bowel mesentery of the right lower quadrant, li suyapa metastatic carcinoid. Recommend surgical consultation. 3. Cholelithiasis.
--- NOTE | ~2021-08-11 | US_ITS ---
EXAMINATION: US venous doppler [facility] DATE: 08/13/2021 13:59 INDICATION: post op swelling TECHNIQUE: Grayscale images without and with compression and Doppler images of the left lower extremi ty veins were obtained. COMPARISON: None. FINDINGS: The left common femoral vein, profunda femoral vein, femoral vein, popliteal vein, peroneal vein, pos terior tibial veins, gastrocnemius vein and greater saphenous vein are patent. IMPRESSION: 1. Patent bilateral lower extremity veins. No evidence of deep venous thrombosis. Reviewed, dictated and finalized at location K. IMPRESSION: 1. Patent bilateral lower extremity veins. No evidence of deep venous thrombos is.
--- NOTE | 2021-08-11 10:29 | ECG_ITS ---
Measurements Intervals Leonard Rate: 51 P: 0 [place]: 162 QRS: 13 QRSD: 104 T: -13 QT: 492 QTc: 454 Interpretive Statements SINUS BRADYCARDIA BORDERLINE ST-T WAVE ABNORMALITY- ANT/INF LEADS BASELINE WANDER- V3 BORDERLINE ECG Electronically Signed On 08-11-2021 12:31:56 CDT by Floyd Multani D.O.
--- NOTE | 2021-08-11 10:40 | PC.NURSE ---
Patient off unit to Radiology.
[2021-08-11 11:11] LABS: Basophils Absolute Auto 0.1 K/mm3 (0.0-0.1); Basophils Percent Auto 0.3 % (0.2-1.2); Eosinophils Percent Auto 0.1 % (0-4.4); Hematocrit 29.9 % (37.0-47.0); Hemoglobin 9.1 g/dL (12.0-15.0); Immature Granulocyte Percent A 0.6 % (0-0.5); Lymphocytes Absolute Auto 1.09 K/mm3 (0.9-3.2); Lymphocytes Percent Auto 6.7 % (18.3-44.2); Mean Corpuscular HGB Conc 30.4 g/dl (32-36); Mean Corpuscular Hemoglobin 31.3 pg (26-34); Mean Corpuscular Volume 102.7 fl (80-100); Mean Platelet Volume 8.5 fl (7.4-10.4); Monocytes Absolute Auto 0.7 K/mm3 (0.1-0.6); Neutrophils Absolute Auto 14.3 K/mm3 (1.3-6.7); Neutrophils Percent Auto 88.3 % (45.5-73.1); Platelet Count Result 204 k/mm3 (150-375); Red Blood Count 2.91 M/mm3 (4.2-5.4); Red Cell Distribution Width 14.2 % (11.5-14.5); White Blood Count 16.2 K/mm3 (4.5-10.0)
--- NOTE | 2021-08-11 11:11 | PC.NURSE ---
Patient report given to NAOMY Corbett. All questions answered and care of patient transferred.
[2021-08-11 11:21] LABS: Alanine Aminotransferase 15 U/L (4-35); Albumin Level 3.2 g/dL (3.5-5.1); Alkaline Phosphatase 45 U/L (38-126); Anion Gap 9 mmol/L (8-16); Aspartate Amino Transferase 46 U/L (14-36); Bilirubin,Total 0.3 mg/dL (0.2-1.3); Blood Urea Nitrogen 38 mg/dL (7-17); Calcium 8.4 mg/dL (8.4-10.2); Carbon Dioxide 28 mmol/L (22-30); Chloride 104 mmol/L (98-107); Estimated CRCL calculation 8 ml/min; Estimated Glomerular Filt Rate 7; Glucose 86 mg/dL (65-110); Potassium 4.6 mmol/L (3.4-5.0); Sodium 141 mmol/L (137-145)
[2021-08-11 11:23] LABS: Lactic Acid Reflex 2.9 mmol/L (0.7-2.0)
[2021-08-11 13:03] LABS: SARS-CoV-2 RNA PCR Negative
--- NOTE | 2021-08-11 13:21 | ED.WEAKNESS ---
HPI - Weakness General Chief complaint: Weakness Stated complaint: LOW BP, WEAK, UNABLE TO AMBULATE Time Seen by Provider: 08/11/21 11:36 Source: patient, family and EMS Mode of arrival: EMS Limitations: no limitations History of Present Illness HPI Narrative: Pt presents with complaints of generalized weakness and near syncopal episodes when standing for the last several days. Pt denies CP or SOB. Pt denies one sided weakness. MD Complaint: generalized weakness Onset (ago): day(s) (3) Duration: intermittent Exacerbating factors: exertion and other (standing) Associated symptoms: denies other symptoms Related Data Home Medications Medication Instructions Recorded Confirmed aspirin 81 mg tablet,delayed 81 mg PO DAILY 02/21/19 08/01/21 release cholecalciferol (vitamin D3) 50 2,000 unit PO DAILY 02/21/19 08/01/21 mcg (2,000 unit) tablet multivit with 1 tablet PO DAILY 06/25/19 08/01/21 rokrgpod-okne-EF-lutein 8 mg iron-400 mcg-300 mcg tablet omega-3 fatty acids 1,000 mg 1,000 mg PO DAILY 06/25/19 08/01/21 capsule carvedilol 12.5 mg tablet 12.5 mg PO Q12H 08/26/19 08/01/21 guanfacine 1 mg tablet 1 mg PO DAILY 08/26/19 08/01/21 Allergies Allergy/AdvReac Type Severity Reaction Status Date / Time Sulfa (Sulfonamide Allergy Mild RASH Verified 08/11/21 10:28 Antibiotics) Review of Systems Review of Systems: All systems reviewed & are unremarkable except as noted in HPI and below PMFSH Past Medical History Medical History Anemia in chronic kidney disease, on chronic dialysis ASHD (arteriosclerotic heart disease) Bilateral carotid artery stenosis 70% stenosis bilateral carotids December 2018 CHF (congestive heart failure) Echocardiogram April 2020: EF 60 65%, grade 1 diastolic dysfunction, moderately increased left ventricular wall thickness, basal inferior wall, mid inferior wall are hypokinetic, moderate left atrial enlargement, mild mitral and tricuspid regurgitation, mild pulmonary hypertension with RVSP of 37 CVA (cerebral vascular accident) (~12/2016) Cerebellum and right occipital lobe due to septic emboli Diabetes mellitus Diabetic neuropathy End-stage renal disease on hemodialysis Initiated hemodialysis April 2020 Endocarditis Aortic valve endocarditis December 2016 Erythropoietin deficiency anemia Fever Hypertension associated with diabetes Hypothyroidism Mixed hyperlipidemia Other heart block Renal osteodystrophy Surgical History Surgical History History of coronary artery stent placement CT with 1 stent 2010 History of tonsillectomy and adenoidectomy History of tubal ligation Family History Family History Sibling Family history of Alzheimer's disease Grandparent Carcinoma of colon Father Family history of heart disease in male family member before age 55 Diabetes mellitus Mother Family history of heart disease in male family member before age 55 Diabetes mellitus Cerebrovascular accident Other Hypertension Social History Social History Social History: She lives with her of 53 years. They have 2 daughters and 1 son. 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 She is a former smoker. She smoked a pack of cigarettes per day for 30 years but quit smoking in 1989. She does not drink alcohol and denies any illicit substance use. Primary care physician: Dr. Ayush Alonzo Code status: Full code Surrogate decision maker: Smoking packs per day: 1 Smoking cigarettes per day: 20.0 Years smoked: 25 Smoking pack-years: 25.00 Smoking status: Former smoker Second hand tobacco smoke exposure: No Alcohol intake: never Substance u
[2021-08-11 14:15] LABS: Reflex Lactic Acid Yes or No Add Lactic
--- NOTE | 2021-08-11 14:48 | PC.NURSE ---
spoke with lab, urine has been received but not resulted. results pending
[2021-08-11 14:59] LABS: Lactic Acid 1.2 mmol/L (0.7-2.0)
[2021-08-11 15:02] LABS: Appearance Urine Cloudy (Clear); Bilirubin Urine Negative (Negative); Blood Urine 3+ (Negative); Color Urine Yellow (Yellow); Glucose Urine UA Negative (Negative); Ketones Urine Negative (Negative); Leukocyte Esterase Ur Negative LEU/UL (Negative); Nitrate Urine Negative (Negative); Protein Urine 3+ mg/dL (Negative); Specific Grav Ur 1.025 (1.001-1.035); Urobilinogen Urine 0.2 mg/dL (<2.0); pH Urine 6.5 (5.0-9.0)
[2021-08-11 15:13] LABS: Mucus Urine Rare /lpf; RBC Urine 21-50 /hpf (0-2); Squamous Epithelial Cell Urine Many /hpf (Few); WBC Urine 16-20 /hpf
[2021-08-11 15:15] LABS: Add Urine Microscopic? YES
[2021-08-11] MEDS: cefTRIAXone 2 GM in SODIUM CHLORIDE 0.9% IV 100 ML 200 ML IVPB (16:31)
--- NOTE | 2021-08-11 19:00 | PM.IMHP ---
H&P: HPI History of Present Illness Date/Time: 08/11/21 19:00 Chief Complaint: Generalized weakness. Narrative: This is a 76-year-old female with insulin-dependent diabetes, hypertension, peripheral vascular disease, end-stage renal disease on peritoneal dialysis, and several other comorbidities who presented to the emergency department from home for evaluation of generalized weakness. Two weeks ago she had her 1st and 2nd toes amputated per Dr. Myers for reported infection and gangrene related to diabetic foot wounds. She finished her antibiotic a couple of days ago and she saw Dr. Myers in the office just yesterday at which time the wound was cleaned and rewrapped. He mentioned that the wound was not as pink as he would have liked however he was otherwise happy with the results. In any regard, she has had home health and physical therapy coming to the home and today she was unable to bear weight and she seemed much weaker than usual and she was brought to the ER. With further questioning it sounds as though she is not very ambulatory, and is essentially wheelchair-bound however she can not stand and pivot. She goes on to say that she is frequently dizzy upon standing however over the past 1.5 weeks she has had 4 episodes where ?her knees buckle and down she goes. Luckily her accompanies her when she transfers and she has not fallen or injured herself. It sounds as though she does have brief loss of consciousness with these episodes or she comes in and out of consciousness for upwards of 5 minutes. She denies headache, vertigo, paresthesias, focal weakness, fever, chills, sweats, cold and flu symptoms, sick contacts, chest pain, palpitations, shortness of breath, nausea, vomiting, and diarrhea. She does still urinate a little bit and she denies dysuria. Review of Systems Review of Systems: Twelve systems were reviewed. She denies blurry vision, polydipsia, and polyuria. She thinks her diabetes is pretty well controlled however her hemoglobin A1c was 10.2% in June 2021. She does have occasional tremors of her hands and lower extremities. She does endorse neuropathy. No known history of orthostatic hypotension. Except as documented, all other systems were reviewed and are negative. [facility] Past Medical History Medical History (Updated 08/11/21 @ 23:41 by Shannen Kohli PA-C) Anemia in chronic kidney disease, on chronic dialysis Atherosclerotic heart disease Bilateral carotid artery stenosis 70% stenosis bilateral carotids December 2018 CHF (congestive heart failure) Echocardiogram April 2020: EF 60 65%, grade 1 diastolic dysfunction, moderately increased left ventricular wall thickness, basal inferior wall, mid inferior wall are hypokinetic, moderate left atrial enlargement, mild mitral and tricuspid regurgitation, mild pulmonary hypertension with RVSP of 37 CVA (cerebral vascular accident) (~12/2016) Cerebellum and right occipital lobe due to septic emboli Diabetes mellitus Diabetic neuropathy End-stage renal disease on hemodialysis Initiated hemodialysis April 2020, transition to peritoneal dialysis thereafter End-stage renal disease on peritoneal dialysis Endocarditis Aortic valve endocarditis December 2016 Erythropoietin deficiency anemia Hypertension associated with diabetes Hypothyroidism Mixed hyperlipidemia Other heart block Renal osteodystrophy Surgical History Surgical History (Updated 08/11/21 @ 23:30 by Shannen Kohli PA-C) Amputation of toe of left foot (07/2021) Left 1st and 2nd toe for gangrene infection related to diabetic foot wound. History of coronary artery stent placement [place] with 1 stent 2010 History of tonsillectomy and adenoidectomy History of tubal ligation History of vascular surgery Left lower extremity stent. Family History Family History Sibling Family history of Alzheimer's disease Grandparent Carcinoma of colon Father Family his
--- NOTE | 2021-08-11 20:09 | ADMGEN ---
This patient, Jing Alfredo, was admitted to 3 Medical Room 347-. Patient/family oriented to hospital policies and general routines including ID bracelet, bed and alarms, visiting hours, pain management, procedures, bathroom and other care routines, personal items, smoking policy, room service/diet, and visiting hours. Information on how to activate the Rapid Response Team has been discussed. Patient/Family are encouraged to report perceived risks to care and to ask questions if they do not understand what they are told or what they should do.
[2021-08-12] VITALS (12 sets, daily range): BP systolic 104–140; BP diastolic 38–67; PULSE 58–87; RESP 16–18; TEMP 36.2–36.8; O2SAT 73–100
[2021-08-12 00:11] LABS: Hemoglobin A1C 7.4 % (<5.7)
[2021-08-12] MEDS: carvediloL 12.5 MG TABLET PO ×3 (00:43→21:15)
[2021-08-12] MEDS: GABAPENTIN 400 MG CAPSULE PO ×2 (00:43→17:19)
[2021-08-12 05:50] LABS: Hematocrit 22.1 % (37.0-47.0); Mean Corpuscular HGB Conc 31.7 g/dl (32-36); Mean Corpuscular Volume 100.9 fl (80-100); Mean Platelet Volume 8.7 fl (7.4-10.4); Platelet Count Result 162 k/mm3 (150-375); Red Blood Count 2.19 M/mm3 (4.2-5.4); Red Cell Distribution Width 14.1 % (11.5-14.5); White Blood Count 25.7 K/mm3 (4.5-10.0)
[2021-08-12 06:11] LABS: Alanine Aminotransferase 10 U/L (4-35); Albumin Level 2.6 g/dL (3.5-5.1); Alkaline Phosphatase 38 U/L (38-126); Anion Gap 10 mmol/L (8-16); Aspartate Amino Transferase 33 U/L (14-36); Bilirubin,Total 0.3 mg/dL (0.2-1.3); Blood Urea Nitrogen 45 mg/dL (7-17); Calcium 7.7 mg/dL (8.4-10.2); Carbon Dioxide 23 mmol/L (22-30); Chloride 107 mmol/L (98-107); Estimated CRCL calculation 7 ml/min; Estimated Glomerular Filt Rate 7; Glucose 125 mg/dL (65-110); Magnesium 1.9 mg/dL (1.6-2.3); Potassium 4.5 mmol/L (3.4-5.0); Sodium 140 mmol/L (137-145)
[2021-08-12 06:18] LABS: CRP 11.7 mg/dL (<1.0)
[2021-08-12] MEDS: LEVOTHYROXINE SODIUM 75 MCG TABLET PO (06:26)
[2021-08-12 07:10] LABS: Thyroid Stimulating Hormone Reflex 0.532 uIU/mL (0.465-4.68)
[2021-08-12 07:19] LABS: Glucose Point of Care 125 mg/dl (65-105)
[2021-08-12] MEDS: HYDROcodone/acetaminophen (*CRX) 5-325 MG TABLET 1 TAB PO ×2 (07:21→18:54)
[2021-08-12] MEDS: INSULIN GLARGINE (*BKC) 100 UNITS/ML 36 UNITS SUB-Q (09:50)
[2021-08-12] MEDS: SOLOSITE WOUND GEL 85 GM TUBE 1 APPLIC TOPICAL (09:53)
--- NOTE | 2021-08-12 11:14 | PM.CNNEP ---
Assessment and Plan Additional Plan 1.Jing Has end-stage renal disease. This is due to diabetes and hypertension. She is getting peritoneal dialysis. Her electrolytes and dialysis adequacy has been good. She is due for dialysis tonight. Will give her a little extra dialysis now over the next few nights to make up for the loss of dialysis from the last 2 nights. Fluid has been clear. 2. The patient is weak. She has not been getting up and around at all for the last several weeks or possibly even 2-3 months. This is all because of her left toe. She is a bit passive anyway and so tends to be somewhat of a couch potato. So she might be weak because of this. I am happy that she is getting physical therapy but she has become weaker in spite of the physical therapy. So there might be something else going on as well. Notably her white blood cell count is elevated. Possibly there is some sort of subtle infection. She could have some hormone issues such as low cortisol or low thyroid. She does tend to have buckling of her knees. Gabapentin could do this as well. Possibly she should go off the gabapentin. Will also get orthostatic blood pressure readings daily to see if she drops her 3. The patient has an elevated white cell count. She is on antibiotics. Cultures have been done. She has no belly pain so I doubt if this is peritonitis. 4. The patient has diabetes. She is on Accu-Cheks and sliding-scale insulin Per the hospitalist. 5. The patient has history of congestive heart failure. She seems to be compensated now by physical exam and by chest x-ray. Her blood pressure is not too low. 6. The patient has hypertension. Her blood pressure is fairly well controlled. 7. The patient has peripheral vascular disease status post removal of the 1st and 2nd toe over the left foot. There is some question of circulation. Will get arterial Dopplers of that leg. 8. the patient has anemia. Give Epogen. Will hold off on iron now because she has an elevated white count. 9. Renal osteodystrophy. Get her back on her binders and follow the phosphorus levels. History of Present Illness Reason for Consult Consult date: 08/12/21 Chief Complaint Chief complaint: Syncope/Generalized Weakness History of Present Illness Narrative: Jing is a very pleasant 76-year-old lady who has end-stage renal disease on dialysis 3 times a week, diabetes, hypertension, stroke, coronary disease, congestive heart failure, depression, peripheral vascular disease status post recent removal of 1st and 2nd toes of the left foot, hyperlipidemia, who came in the hospital because of weakness. She has been generally weak for the last couple of months. She has had problems with the left foot and the necrosis of the 2 toes. She went to see Dr. Fidel Myers about this. He eventually removed the toes. She has been sitting in a chair or lying in bed for most the time during all of this issue with the toes and so has become more and more weak. She is getting some physical therapy at home and he is been helping her with standing and pivoting to go from bed to chair. Recently the toes removed within the last few weeks. They went to see Dr. Jett on Sunday for a follow-up and the wound was opposed but was not as pink as he would like and he wanted to get an arterial Doppler which has not been done yet. The night before last the patient was on peritoneal dialysis but the machine base behaved and so she did not really get any dialysis at all. They did not call the company to troubleshoot the machine. Yesterday morning the patient was with the physical therapist and she became lightheaded with standing and fell to the floor. She did not hit her head. The therapist and Mr. Matos called the EMT he has and they took her to the emergency room here. She has had no fevers or chills. No belly pain. Her fluids been clear. No cough. No sinus issues. No skin rash or rash o
[2021-08-12 11:33] LABS: Glucose Point of Care 165 mg/dl (65-105)
[2021-08-12 11:47] LABS: Reticulocyte Hemoglobin Conten 32.5 pg (28.2-35.7); Reticulocyte Percent 2.54 % (0.7-4.3); Reticulocytes Absolute 0.05 B/L (32.2-175.7)
[2021-08-12] MEDS: ROSUVASTATIN 10 MG TABLET 40 MG PO (11:52)
[2021-08-12] MEDS: SEVELAMER CARBONATE 800 MG TABLET 3200 MG PO ×2 (11:52→17:19)
[2021-08-12] MEDS: lisinopriL 20 MG TABLET PO (11:52)
[2021-08-12] MEDS: THERAPEUTIC MULTIVITAMINS/MINERALS TAB (*BKC) 1 TABLET PO (11:53)
[2021-08-12] MEDS: FUROSEMIDE 40 MG TABLET PO (11:53)
[2021-08-12] MEDS: CHOLECALCIFEROL 1,000 UNITS TABLET 2000 UNITS PO (11:53)
[2021-08-12] MEDS: CLOPIDOGREL BISULFATE 75 MG TABLET PO (11:53)
[2021-08-12] MEDS: guanFACINE HCL 1 MG TABLET PO (11:53)
[2021-08-12] MEDS: SERTRALINE HCL 50 MG TABLET PO (11:53)
[2021-08-12] MEDS: OMEGA 3 POLYUNSAT FATTY ACIDS 1 GM CAP PO (11:54)
[2021-08-12] MEDS: ASPIRIN 81 MG ENTERIC TABLET PO (11:54)
[2021-08-12] MEDS: POTASSIUM CHLORIDE 20 MEQ TABLET.ER PO ×2 (11:54→17:19)
[2021-08-12] MEDS: EPOETIN ALFA-EPBX 20,000 UNITS/ML VIAL 20000 UNITS SUB-Q (11:57)
[2021-08-12 13:01] LABS: Thyroid Stimulating Hormone Reflex 0.622 uIU/mL (0.465-4.68)
[2021-08-12 13:05] LABS: Folic Acid > 20.0 ng/mL (2.76->20)
[2021-08-12 14:15] LABS: Vitamin D 25 Hydroxy 24.7 ng/mL
[2021-08-12 16:33] LABS: Glucose Point of Care 130 mg/dl (65-105)
[2021-08-12] MEDS: INSULIN GLARGINE (*BKC) 100 UNITS/ML 14 UNITS SUB-Q (17:21)
--- NOTE | 2021-08-12 18:20 | PM.IMPN ---
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 Status: Acute (4) End-stage renal disease on peritoneal dialysis: Code(s): N18.6 - End stage renal disease; Z99.2 - Dependence on renal dialysis Status: Acute (5) Depression: Code(s): F32.A - Depression, unspecified Status: Acute (6) Hypertension: Code(s): I10 - Essential (primary) hypertension Status: Acute (7) End-stage renal disease on hemodialysis: Code(s): N18.6 - End stage renal disease; Z99.2 - Dependence on renal dialysis Status: Acute (8) Hypothyroidism: Qualifiers: Hypothyroidism type: unspecified Qualified Code(s): E03.9 - Hypothyroidism, unspecified Code(s): E03.9 - Hypothyroidism, unspecified Status: Acute (9) Hyperlipidemia: Qualifiers: Hyperlipidemia type: unspecified Qualified Code(s): E78.5 - Hyperlipidemia, unspecified Code(s): E78.5 - Hyperlipidemia, unspecified Status: Acute (10) GERD (gastroesophageal reflux disease): Qualifiers: Esophagitis presence: esophagitis presence not specified Qualified Code(s): K21.9 - Gastro-esophageal reflux disease without esophagitis Code(s): K21.9 - Gastro-esophageal reflux disease without esophagitis Status: Acute Additional Plan 08/11/21 Patient has apparently had 4 episodes of syncope or near syncope in the last 1.5 weeks. I suspect she may have orthostatic hypotension and with reports of ?always being dizzy? she probably has autonomic dysfunction. She will be monitor on telemetry however to rule out cardiac dysrhythmia. She has chronic carotid artery disease thus no need to repeat ultrasounds. Nephrology consulted for dialysis. Chest x-ray showed free intraperitoneal gas below the right hemidiaphragm though her abdominal exam is completely benign. Will alert nephrology, patient may need technique reviewed. Blood pressures were reviewed and they are stable. I do however suspect that she probably has orthostatic hypotension thus will monitor orthostatic vital signs. Her antihypertensives will be reviewed and resumed as appropriate. Continue levothyroxine and check TSH. Continue basal insulin. Initiate sliding scale insulin, Accu-Cheks, and hypoglycemic protocol. Check hemoglobin A1c. 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 No evidence of infection on exam today. Wound nurse consulted. 08/12/21 cont workup x syncope orthostatics PHD tonamanuel, Dr Gee managing rising WBC without source CT abd pelvis ordered CXR reviewed, free air likely associated w PD healing wound on LLE that does not appear to be source of infection on gross examination blood cultures ordered POC reviewed w Dr Gee will empirically cover for skin microbes pending further workup Subjective Date/time seen: 08/12/21 18:20 doing ok no new complaints Exam Narrative: General: Chronically ill-appearing AAOx3 HEENT: Wearing glasses. EOMI. Sclerae anicteric. Neck: Supple. No JVD. Respiratory: Respirations are nonlabored. Lungs are clear to auscultation. Cardiovascular: Regular rate and rhythm with S1-S2. Gastrointestinal: Abdomen is soft, nontender, and nondistended with positive bowel sounds. Peritoneal dialysis catheter Skin: Warm and dry. Generalized pallor. Status post left 1st and 2nd toe amputations. Extremities: No cyanosis, clubbing, or edema. Radial pulses palpable. Neurological: Alert and oriented. Cranial nerves 2-12 are grossly intact. S
[2021-08-12 21:39] LABS: Glucose Point of Care 360 mg/dl (65-105)
[2021-08-13] VITALS (19 sets, daily range): BP systolic 99–169; BP diastolic 38–54; PULSE 58–86; RESP 15–20; TEMP 36.1–36.8; O2SAT 95–100
--- NOTE | 2021-08-13 | ECHO_ITS ---
Patient Info Name: Jing Alfredo Age: 76 years : 1945 Gender: Female Ht: 66 in Wt: 167 lbs BSA: 1.89 m2 HR: 78 bpm BP: 146 / 86 mmHg Technical Quality: Good Exam Date: 08/13/2021 10:56 AM Exam Location: [facility] Pulmonary Exam Room: [facility] [place] Patient Status: Inpatient Admit Date: 08/11/2021 Staff Ordering Physician: Barbara Elias MD Spinning Room Worker: Allyson Magallon RDCS Attending Provider: Mitchell Omalley MD Referring Physician: Curt MONTIEL; Exam Type: CA echo doppler color flow Study Info Indications - sob chf Complete two-dimensional, color flow and Doppler transthoracic echocardiogram is performed. Summary 1. Complete two-dimensional, color flow and Doppler transthoracic echocardiogram is performed. 2. Left ventricular chamber dimension is normal. 3. Left ventricular systolic function is normal, estimated at 65-70%. 4. There is moderately increased left ventricular wall thickness. 5. The left ventricular diastolic function is grade I diastolic dysfunction. 6. Left atrial chamber dimension is moderately enlarged. 7. Normal inferior vena cava with >50% collapse upon inspiration consistent with normal right atrial pressure, 5 mmHg. Left Ventricle Left ventricular chamber dimension is normal. Left ventricular systolic function is normal, estimated at 65-70%. There is moderately increased left ventricular wall thickness. The left ventricular diastolic function is grade I diastolic dysfunction. Right Ventricle Right ventricular chamber dimension is normal. Right ventricular systolic function is normal. Left Atria Left atrial chamber dimension is moderately enlarged. Right Atria Right atrial chamber dimension is normal. Aortic Valve The aortic valve is trileaflet. There is mild aortic valve sclerosis. There is no aortic valve stenosis. There is no aortic valve regurgitation. Pulmonic Valve The pulmonic valve is normal. There is no pulmonic valve stenosis. There is no pulmonic regurgitation. Mitral Valve The mitral valve has normal leaflets. There is no mitral valve stenosis. There is no mitral valve regurgitation. The mitral valve annulus is moderately calcified. Tricuspid Valve The tricuspid valve leaflets are normal. There is no significant tricuspid valve stenosis. There is mild tricuspid valve regurgitation. No pulmonary hypertension, estimated pulmonary arterial systolic pressure is 29 mmHg. Pericardium/Pleural The pericardium appears normal. There is no pericardial effusion. Inferior Vena Cava Normal inferior vena cava with >50% collapse upon inspiration consistent with normal right atrial pressure, 5 mmHg. Aorta The aortic root size at the sinus of Valsalva is normal. The prox ascending aorta size is normal. Left Ventricular Outflow Tract Name Value Normal LVOT 2D LVOT Diameter 2.0 cm LVOT Doppler LVOT Peak Gradient 4 mmHg LVOT Mean Gradient 3 mmHg LVOT VTI 36 cm LVOT VTI/AV VTI Ratio 0.6 LVOT Stroke Vol
[2021-08-13] MEDS: LEVOTHYROXINE SODIUM 75 MCG TABLET PO (06:01)
[2021-08-13 06:31] LABS: Albumin Level 2.7 g/dL (3.5-5.1); Anion Gap 7 mmol/L (8-16); Blood Urea Nitrogen 41 mg/dL (7-17); Calcium 7.9 mg/dL (8.4-10.2); Carbon Dioxide 25 mmol/L (22-30); Chloride 103 mmol/L (98-107); Estimated CRCL calculation 8 ml/min; Estimated Glomerular Filt Rate 8; Glucose 253 mg/dL (65-110); Phosphorus 4.7 mg/dL (2.5-4.5); Potassium 3.7 mmol/L (3.4-5.0); Sodium 135 mmol/L (137-145)
[2021-08-13 07:56] LABS: Glucose Point of Care 196 mg/dl (65-105)
[2021-08-13] MEDS: SEVELAMER CARBONATE 800 MG TABLET 3200 MG PO ×2 (08:17→17:18)
[2021-08-13] MEDS: THERAPEUTIC MULTIVITAMINS/MINERALS TAB (*BKC) 1 TABLET PO (08:17)
[2021-08-13] MEDS: guanFACINE HCL 1 MG TABLET PO (08:17)
[2021-08-13] MEDS: carvediloL 12.5 MG TABLET PO ×2 (08:17→20:19)
[2021-08-13] MEDS: CHOLECALCIFEROL 1,000 UNITS TABLET 2000 UNITS PO (08:17)
[2021-08-13] MEDS: SERTRALINE HCL 50 MG TABLET PO (08:17)
[2021-08-13] MEDS: CLOPIDOGREL BISULFATE 75 MG TABLET PO (08:17)
[2021-08-13] MEDS: OMEGA 3 POLYUNSAT FATTY ACIDS 1 GM CAP PO (08:18)
[2021-08-13] MEDS: FUROSEMIDE 40 MG TABLET PO (08:18)
[2021-08-13] MEDS: SOLOSITE WOUND GEL 85 GM TUBE 1 APPLIC TOPICAL (08:18)
[2021-08-13] MEDS: ASPIRIN 81 MG ENTERIC TABLET PO (08:18)
[2021-08-13] MEDS: ROSUVASTATIN 10 MG TABLET 40 MG PO (08:18)
[2021-08-13] MEDS: POTASSIUM CHLORIDE 20 MEQ TABLET.ER PO ×2 (08:18→17:18)
--- NOTE | 2021-08-13 08:24 | PM.IMPN ---
Progress Note: A&P Assessment and Plan (1) Peripheral vascular disease: Code(s): I73.9 - Peripheral vascular disease, unspecified Status: Acute (2) Insulin dependent type 2 diabetes mellitus: Code(s): E11.9 - Type 2 diabetes mellitus without complications; Z79.4 - [facility] (current) use of insulin Status: Acute (3) End-stage renal disease on peritoneal dialysis: Code(s): N18.6 - End stage renal disease; Z99.2 - Dependence on renal dialysis Status: Acute (4) Syncope: Qualifiers: Syncope type: unspecified Qualified Code(s): R55 - Syncope and collapse Code(s): R55 - Syncope and collapse Status: Acute (5) Depression: Code(s): F32.A - Depression, unspecified Status: Acute (6) PVD (peripheral vascular disease): Code(s): I73.9 - Peripheral vascular disease, unspecified Status: Chronic (7) Hypertension: Code(s): I10 - Essential (primary) hypertension Status: Acute (8) Thyroid nodule: Code(s): E04.1 - Nontoxic single thyroid nodule Status: Acute (9) Hyperlipidemia: Qualifiers: Hyperlipidemia type: unspecified Qualified Code(s): E78.5 - Hyperlipidemia, unspecified Code(s): E78.5 - Hyperlipidemia, unspecified Status: Acute (10) Hypothyroidism: Qualifiers: Hypothyroidism type: unspecified Qualified Code(s): E03.9 - Hypothyroidism, unspecified Code(s): E03.9 - Hypothyroidism, unspecified Status: Acute (11) Abdominal mass: Code(s): R19.00 - Intra-abdominal and pelvic swelling, mass and lump, unspecified site Status: Acute (12) Diabetic neuropathy associated with diabetes mellitus due to underlying condition: Code(s): E08.40 - Diabetes mellitus due to underlying condition with diabetic neuropathy, unspecified Status: Chronic (13) Anemia: Code(s): D64.9 - Anemia, unspecified Status: Deleted (14) Anemia in chronic kidney disease, on chronic dialysis: Code(s): N18.6 - End stage renal disease; D63.1 - Anemia in chronic kidney disease; Z99.2 - Dependence on renal dialysis Status: Inactive (15) Acute on chronic anemia: Code(s): D64.9 - Anemia, unspecified Status: Acute Additional Plan 08/11/21 Patient has apparently had 4 episodes of syncope or near syncope in the last 1.5 weeks. I suspect she may have orthostatic hypotension and with reports of ?always being dizzy? she probably has autonomic dysfunction. She will be monitor on telemetry however to rule out cardiac dysrhythmia. She has chronic carotid artery disease thus no need to repeat ultrasounds. Nephrology consulted for dialysis. Chest x-ray showed free intraperitoneal gas below the right hemidiaphragm though her abdominal exam is completely benign. Will alert nephrology, patient may need technique reviewed. Blood pressures were reviewed and they are stable. I do however suspect that she probably has orthostatic hypotension thus will monitor orthostatic vital signs. Her antihypertensives will be reviewed and resumed as appropriate. Continue levothyroxine and check TSH. Continue basal insulin. Initiate sliding scale insulin, Accu-Cheks, and hypoglycemic protocol. Check hemoglobin A1c. 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 No evidence of infection on exam today. Wound nurse consulted. 08/12/21 cont workup x syncope orthostatics PHD tonight, Dr Gee managing rising WBC without source CT abd pelvis ordered CXR reviewed, free air likely associated w PD healing wound on LLE that does not appear to be source of infection on gross examination blood cultures ordered POC reviewed w Dr Gee will empirically cover for skin microbes pending further workup 08/13/21 pt doing ok WBC downtrending on Zosyn Blood cx pending complains of LLE heaviness and difficulty lifting moving ext -> US to r/o DVT of thigh Hgb < 7 on am labs 1UPRBC ordered
[2021-08-13] MEDS: HYDROcodone/acetaminophen (*CRX) 5-325 MG TABLET 1 TAB PO (08:32)
[2021-08-13] MEDS: INSULIN GLARGINE (*BKC) 100 UNITS/ML 36 UNITS SUB-Q (08:33)
[2021-08-13 09:21] LABS: Hematocrit 22.1 % (37.0-47.0); Mean Corpuscular HGB Conc 29.9 g/dl (32-36); Mean Corpuscular Hemoglobin 31.4 pg (26-34); Mean Corpuscular Volume 105.2 fl (80-100); Platelet Count Result 135 k/mm3 (150-375); Red Cell Distribution Width 14.3 % (11.5-14.5); White Blood Count 15.9 K/mm3 (4.5-10.0)
[2021-08-13 09:28] LABS: Hemoglobin 6.6 g/dL (12.0-15.0)
[2021-08-13 11:42] LABS: Glucose Point of Care 223 mg/dl (65-105)
--- NOTE | 2021-08-13 12:25 | PM.PNNEP ---
Progress Note: A&P Assessment and Plan (1) ESRD (end stage renal disease): Code(s): N18.6 - End stage renal disease Status: Chronic Assessment and Plan: continue nightly CCPD while hospitalized follow electrolytes, volume status, and clearance (2) Syncope: Onset Date: ~07/2021 Qualifiers: Syncope type: unspecified Qualified Code(s): R55 - Syncope and collapse Code(s): R55 - Syncope and collapse Status: Acute Assessment and Plan: work-up in progress Echo and carotid duplex ordered follow-up on orthostatics PT/OT as tolerated (3) Anemia: Code(s): D64.9 - Anemia, unspecified Status: Chronic Assessment and Plan: significant drop by AM labs PRBC transfusion today follow trend of H/H Epogen 3x/weeke while hospitalized (4) PVD (peripheral vascular disease): Code(s): I73.9 - Peripheral vascular disease, unspecified Status: Chronic Assessment and Plan: s/p left 1st and 2nd toe amputation checking arterial dopplers (5) Hypertension: Onset Date: Unknown Code(s): I10 - Essential (primary) hypertension Status: Chronic Assessment and Plan: reasonable control follow trend of hemodynamics (6) Diabetes: Code(s): E11.9 - Type 2 diabetes mellitus without complications Status: Chronic Assessment and Plan: follow accuchecks on SSI and Lantus Will continue to follow. Subjective Date/time seen: 08/13/21 12:25 Chart reviewed - assuming care from Dr. Gee; tolerated peritoneal dialysis treatment overnight without any issues or problems; no apparent distress voiced at the time of my visit; no other events overnight or earlier this morning; asking me about discharge. Exam Narrative: General: WD/WN elderly female in NAD Heart: normal S1 and S2; no rub Lungs: clear to auscultation Abdomen: soft, nontender, nondistended, positive bowel sounds Extremities: no cyanosis or clubbing; no edema Skin: warm and dry Objective Data Vital Signs Vital Signs: Vital Signs Temp Pulse Resp BP Pulse Ox 08/13/21 08:17 78 08/13/21 08:00 61 08/13/21 06:00 36.8 C 61 20 116/48 L 96 08/13/21 04:00 59 L 08/13/21 00:00 59 L 08/12/21 22:00 36.8 C 58 L 18 104/38 L 100 08/12/21 21:15 64 08/12/21 20:00 64 18 116/67 93 08/12/21 19:23 93 08/12/21 16:00 65 08/12/21 14:00 36.2 C L 64 18 112/38 L 95 Intake/Output Intake/Output: Intake & Output 08/10/21 08/11/21 08/12/21 08/13/21 23:59 23:59 23:59 23:59 Intake Total 100 650 390 Output Total 0 Balance 100 650 390 Meds/Results Medications: Active Medications Generic Name Dose Route Start Last Admin Trade Name Freq PRN Reason Stop Dose Admin Hydrocodone Bitart/Acetaminophen 1 tab 08/12/21 19:01 08/13/21 08:32 Hydrocodone/Acetaminophen (*Crx) 5-325 Mg Tablet PO 1 tab BID PRN Administration Pain (Scale Score 4-6) Aspirin 81 mg 08/12/21 09:00 08/13/21 08:18 Aspirin 81 Mg Enteric Tablet PO 81 mg DAILY OSIEL Administration Carvedilol 12.5 mg 08/11/21 23:55 08/13/21 08:17 Carvedilol 12.5 Mg Tablet PO 12.5 mg Q12HR OSIEL Administration Clopidogrel Bisulfate 75 mg 08/12/21 09:00 08/13/21 08:17 Clopidogrel Bisulfate 75 Mg Tablet PO 75 mg DAILY OSIEL Administration Dextrose 12.5 gm 08/11/21 23:42 Dextrose 50% 25 Gm/50 Ml Syringe IV PUSH PRN PRN Hypoglycemia Protocol Epoetin Salvador-epbx 20,000 units 08/12/21 11:30 08/12/21 11:57 Epoetin Salvador-Epbx 20,000 Units/Ml Vial SUB-Q 20,000 units MOWEFR OSIEL Administration Fish Oil 1 gm 08/12/21 09:00 08/13/21 08:18 [place] 3 Polyunsat Fatty Acids 1 Gm Cap PO 1 gm DAILY OSIEL Administration Furosemide 40 mg 08/12/21 09:00 08/13/21 08:18 Furosemide 40 Mg Tablet PO 40 mg DAILY OSIEL Administration Gabapentin
[2021-08-13 14:08] LABS: Hematocrit 21.9 % (37.0-47.0)
[2021-08-13 14:16] LABS: Hemoglobin 6.7 g/dL (12.0-15.0)
[2021-08-13] MEDS: SODIUM CHLORIDE 0.9% IV 250 ML 30 ML IV CONT (15:48)
[2021-08-13] MEDS: ACETAMINOPHEN 325 MG TABLET 650 MG PO (15:48)
[2021-08-13 15:55] LABS: Iron 52 ug/dL (37-170)
[2021-08-13 16:22] LABS: Percent Iron Saturation 33 % (20-50)
[2021-08-13] MEDS: GABAPENTIN 400 MG CAPSULE PO (17:18)
[2021-08-13] MEDS: INSULIN GLARGINE (*BKC) 100 UNITS/ML 14 UNITS SUB-Q (17:21)
[2021-08-13 17:26] LABS: Glucose Point of Care 158 mg/dl (65-105)
[2021-08-13 20:26] LABS: Glucose Point of Care 166 mg/dl (65-105)
--- NOTE | 2021-08-13 22:01 | PM.CNGS ---
Assessment and Plan Assessment and plan (1) Abdominal mass: Onset Date: ~08/2021 Code(s): R19.00 - Intra-abdominal and pelvic swelling, mass and lump, unspecified site Status: Acute Assessment and Plan: I would like to review the CT scan with the radiologist before discussing it significantly with the patient. On 08/14/2021 I did review the CT scan with radiologist. We inspected the area of the appendix and he showed me the 1.7 cm sightly spiculated mass in the small-bowel mesentery best seen on the sagittal views. We inspected the upper GI tract and were not able to see any specific primary tumor within the upper GI tract. Dr. Gautam believes that there is a nuclear medicine scan with octreotide that we could consider using to see if we can detect a primary. He will review this with his colleagues in the morning and make a suggestion. If indeed the most likely suspicion is a carcinoid tumor, I would recommend GI consultation and consideration for an upper GI endoscopy to look for a GI source in the upper GI tract. Other possible sources of carcinoid are the appendix and the small bowel. It may be that if nothing is found on EGD we should consider specialized imaging such as a PET scan, Nuc Med scan or MRI which may be better directed by a medical oncologist who has more frequently seen carcinoid tumors. (2) Peripheral vascular disease: Onset Date: Unknown Code(s): I73.9 - Peripheral vascular disease, unspecified Status: Acute Assessment and Plan: Will hold Plavix tomorrow in case control systems designer is interested in biopsying something early next week. ( will ask hospitalist to please let me know they feel uncomfortable with holding this). (3) Insulin dependent type 2 diabetes mellitus: Onset Date: Unknown Code(s): E11.9 - Type 2 diabetes mellitus without complications; Z79.4 - [facility] (current) use of insulin Status: Acute Assessment and Plan: Hospitalists are directing therapy for this. (4) End-stage renal disease on peritoneal dialysis: Code(s): N18.6 - End stage renal disease; Z99.2 - Dependence on renal dialysis Status: Acute Assessment and Plan: Review nephrology note they also agree that most likely her free air in the abdomen on chest x-ray and CT is related to the peritoneal dialysis. Appreciate nephrology input. (5) Syncope: Onset Date: ~07/2021 Qualifiers: Syncope type: unspecified Qualified Code(s): R55 - Syncope and collapse Code(s): R55 - Syncope and collapse Status: Acute Assessment and Plan: Workup continues. patient's and were with her on 8. They state that the patient needs help even to stand and transfer from bed to chair or wheelchair to bed. (6) Hypertension: Onset Date: Unknown Code(s): I10 - Essential (primary) hypertension Status: Chronic Assessment and Plan: this is been a long-term problem for the patient. Continuing current medications. (7) Essential (primary) hypertension: Code(s): I10 - Essential (primary) hypertension Status: Acute (8) History of coronary artery stent placement: Code(s): Z95.5 - Presence of coronary angioplasty implant and graft Status: Acute (9) Cholelithiasis NOS: Code(s): K80.20 - Calculus of gallbladder without cholecystitis without obstruction Status: Acute Assessment and Plan: This was seen her CT scan. Did discuss with them today that any surgery within the abdomen most likely would require conversion 1st to a hemodialysis tunneled catheter then staged laparoscopy or laparotomy with removal of the current peritoneal dialysis catheter. Intra-abdominal surgery would be completed then later the peritoneal dialysis catheter may be able to be placed back in. (Apparently she just had this placed in April of this year. ). Additional Plan Will complete consult
[2021-08-14] VITALS (12 sets, daily range): BP systolic 96–145; BP diastolic 38–82; PULSE 59–66; RESP 14–20; TEMP 36.2–36.9; O2SAT 95–100
[2021-08-14] MEDS: LEVOTHYROXINE SODIUM 75 MCG TABLET PO (06:44)
[2021-08-14 07:12] LABS: Basophils Percent Auto 0.3 % (0.2-1.2); Eosinophils Absolute Auto 0.4 K/mm3 (0-0.3); Eosinophils Percent Auto 3.3 % (0-4.4); Immature Granulocyte Absolute 0.14 K/mm3 (0.00-0.031); Immature Granulocyte Percent A 1.2 % (0-0.5); Lymphocytes Absolute Auto 0.92 K/mm3 (0.9-3.2); Mean Corpuscular HGB Conc 32.1 g/dl (32-36); Mean Corpuscular Hemoglobin 32.3 pg (26-34); Mean Corpuscular Volume 100.4 fl (80-100); Mean Platelet Volume 8.8 fl (7.4-10.4); Monocytes Absolute Auto 1.1 K/mm3 (0.1-0.6); Monocytes Percent Auto 9.5 % (2.6-8.5); Neutrophils Absolute Auto 8.9 K/mm3 (1.3-6.7); Neutrophils Percent Auto 77.7 % (45.5-73.1); Platelet Count Result 134 k/mm3 (150-375); Red Blood Count 2.79 M/mm3 (4.2-5.4); Red Cell Distribution Width 14.1 % (11.5-14.5); White Blood Count 11.4 K/mm3 (4.5-10.0)
[2021-08-14 07:20] LABS: Glucose Point of Care 322 mg/dl (65-105)
[2021-08-14] MEDS: INSULIN ASPART (*BKC) 100 UNITS/ML SUB-Q ×2 (09:19→12:27)
[2021-08-14] MEDS: INSULIN GLARGINE (*BKC) 100 UNITS/ML 36 UNITS SUB-Q (09:20)
[2021-08-14] MEDS: FUROSEMIDE 40 MG TABLET PO (09:22)
[2021-08-14] MEDS: guanFACINE HCL 1 MG TABLET PO (09:22)
[2021-08-14] MEDS: OMEGA 3 POLYUNSAT FATTY ACIDS 1 GM CAP PO (09:22)
[2021-08-14] MEDS: ROSUVASTATIN 10 MG TABLET 40 MG PO (09:22)
[2021-08-14] MEDS: SEVELAMER CARBONATE 800 MG TABLET 3200 MG PO ×3 (09:22→17:07)
[2021-08-14] MEDS: ASPIRIN 81 MG ENTERIC TABLET PO (09:22)
[2021-08-14] MEDS: SERTRALINE HCL 50 MG TABLET PO (09:22)
[2021-08-14] MEDS: carvediloL 12.5 MG TABLET PO (09:22)
[2021-08-14] MEDS: THERAPEUTIC MULTIVITAMINS/MINERALS TAB (*BKC) 1 TABLET PO (09:22)
[2021-08-14] MEDS: CLOPIDOGREL BISULFATE 75 MG TABLET PO (09:23)
[2021-08-14] MEDS: POTASSIUM CHLORIDE 20 MEQ TABLET.ER PO (09:23)
[2021-08-14] MEDS: CHOLECALCIFEROL 1,000 UNITS TABLET 2000 UNITS PO (09:23)
[2021-08-14] MEDS: SOLOSITE WOUND GEL 85 GM TUBE 1 APPLIC TOPICAL (09:27)
[2021-08-14] MEDS: HYDROcodone/acetaminophen (*CRX) 5-325 MG TABLET 1 TAB PO (09:40)
[2021-08-14 11:25] LABS: Glucose Point of Care 351 mg/dl (65-105)
--- NOTE | 2021-08-14 13:08 | PM.PNNEP ---
Progress Note: A&P Assessment and Plan (1) ESRD (end stage renal disease): Code(s): N18.6 - End stage renal disease Status: Chronic Assessment and Plan: continue nightly CCPD while hospitalized follow electrolytes, volume status, and clearance (2) Syncope: Onset Date: ~07/2021 Qualifiers: Syncope type: unspecified Qualified Code(s): R55 - Syncope and collapse Code(s): R55 - Syncope and collapse Status: Acute Assessment and Plan: work-up in progress Echo and carotid duplex results noted PT/OT as tolerated (3) Anemia: Code(s): D64.9 - Anemia, unspecified Status: Chronic Assessment and Plan: PRBC transfusion on 08/13/21 follow trend of H/H Epogen 3x/week while hospitalized (4) PVD (peripheral vascular disease): Code(s): I73.9 - Peripheral vascular disease, unspecified Status: Chronic Assessment and Plan: s/p left 1st and 2nd toe amputation checking arterial dopplers (5) Hypertension: Onset Date: Unknown Code(s): I10 - Essential (primary) hypertension Status: Chronic Assessment and Plan: reasonable control follow trend of hemodynamics (6) Diabetes: Code(s): E11.9 - Type 2 diabetes mellitus without complications Status: Chronic Assessment and Plan: follow accuchecks on SSI and Lantus Will continue to follow. Subjective Date/time seen: 08/14/21 13:[address] scan of abd/pelvis noted - Surgery consulted; no acute distress voiced on my visit but does reports some nausea and just not feeling very good -- CCPD went well overnight without any issues or problems. Exam Narrative: General: WD/WN elderly female in NAD Heart: normal S1 and S2; no rub Lungs: clear to auscultation Abdomen: soft, nontender, nondistended, positive bowel sounds Extremities: no cyanosis or clubbing; no edema Skin: warm and intact Objective Data Vital Signs Vital Signs: Vital Signs Temp Pulse Resp BP Pulse Ox 08/14/21 08:00 59 L 08/14/21 05:08 36.4 C 62 18 144/82 H 96 08/14/21 04:00 60 08/14/21 00:00 60 08/13/21 21:25 95 08/13/21 20:22 169/53 H 08/13/21 20:19 64 08/13/21 20:16 36.8 C 64 16 169/54 H 98 08/13/21 20:00 64 08/13/21 18:30 36.6 C 58 L 16 128/46 L 98 08/13/21 17:59 36.1 C L 60 16 141/45 H 100 08/13/21 16:59 36.6 C 59 L 16 124/39 L 99 08/13/21 16:00 59 L 08/13/21 15:59 36.6 C 58 L 15 113/38 L 97 08/13/21 15:44 36.7 C 86 16 99/40 L 96 08/13/21 14:00 36.6 C 58 L 16 126/39 L 97 Intake/Output Intake/Output: Intake & Output 08/11/21 08/12/21 08/13/21 08/14/21 23:59 23:59 23:59 23:59 Intake Total 272 498 4660 862 Output Total 0 20 Balance 124 782 5569 842 Meds/Results Medications: Active Medications Generic Name Dose Route Start Last Admin Trade Name Freq PRN Reason Stop Dose Admin Hydrocodone Bitart/Acetaminophen 1 tab 08/12/21 19:01 08/14/21 09:40 Hydrocodone/Acetaminophen (*Crx) 5-325 Mg Tablet PO 1 tab BID PRN Administration Pain (Scale Score 4-6) Aspirin 81 mg 08/12/21 09:00 08/14/21 09:22 Aspirin 81 Mg Enteric Tablet PO 81 mg DAILY OSIEL Administration Carvedilol 12.5 mg 08/11/21 23:55 08/14/21 09:22 Carvedilol 12.5 Mg Tablet PO 12.5 mg Q12HR OSIEL Administration Clopidogrel Bisulfate 75 mg 08/12/21 09:00 08/14/21 09:23 Clopidogrel Bisulfate 75 Mg Tablet PO 75 mg DAILY OSIEL Administration Dextrose 12.5 gm 08/11/21 23:42 Dextrose 50% 25 Gm/50 Ml Syringe IV PUSH PRN PRN Hypoglycemia Protocol Epoetin Salvador-epbx 20,000 units 08/12/21 11:30 08/12/21 11:57 Epoetin Salvador-Epbx 20,000 Units/Ml Vial SUB-Q 20,000 units MOWEFR OSIEL Administration Fish Oil 1 gm 08/12/21 09:00 08/14/21 09:22 [place] 3 Polyunsat Fatty Acids 1 Gm Cap PO 1 gm DAILY SC
[2021-08-14] MEDS: ONDANSETRON INJ 4 MG/2 ML VIAL IV PUSH (16:05)
[2021-08-14] MEDS: SODIUM CHLORIDE 0.9% IV 200 ML 100 ML IV CONT (16:08)
[2021-08-14 16:27] LABS: Glucose Point of Care 167 mg/dl (65-105)
[2021-08-14] MEDS: GABAPENTIN 400 MG CAPSULE PO (17:07)
[2021-08-14] MEDS: INSULIN GLARGINE (*BKC) 100 UNITS/ML 14 UNITS SUB-Q (17:10)
--- NOTE | 2021-08-14 18:40 | PM.IMPN ---
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 insulin Status: Acute (3) End-stage renal disease on peritoneal dialysis: Code(s): N18.6 - End stage renal disease; Z99.2 - Dependence on renal dialysis Status: Acute (4) Syncope: Onset Date: ~07/2021 Qualifiers: Syncope type: unspecified Qualified Code(s): R55 - Syncope and collapse Code(s): R55 - Syncope and collapse Status: Acute (5) Depression: Code(s): F32.A - Depression, unspecified Status: Acute (6) Hypertension: Onset Date: Unknown Code(s): I10 - Essential (primary) hypertension Status: Chronic (7) Thyroid nodule: Code(s): E04.1 - Nontoxic single thyroid nodule Status: Acute (8) Hyperlipidemia: Qualifiers: Hyperlipidemia type: unspecified Qualified Code(s): E78.5 - Hyperlipidemia, unspecified Code(s): E78.5 - Hyperlipidemia, unspecified Status: Acute (9) Hypothyroidism: Qualifiers: Hypothyroidism type: unspecified Qualified Code(s): E03.9 - Hypothyroidism, unspecified Code(s): E03.9 - Hypothyroidism, unspecified Status: Acute (10) Abdominal mass: Onset Date: ~08/2021 Code(s): R19.00 - Intra-abdominal and pelvic swelling, mass and lump, unspecified site Status: Acute (11) Diabetic neuropathy associated with diabetes mellitus due to underlying condition: Code(s): E08.40 - Diabetes mellitus due to underlying condition with diabetic neuropathy, unspecified Status: Chronic (12) Anemia: Code(s): D64.9 - Anemia, unspecified Status: Chronic (13) Anemia in chronic kidney disease, on chronic dialysis: Code(s): N18.6 - End stage renal disease; D63.1 - Anemia in chronic kidney disease; Z99.2 - Dependence on renal dialysis Status: Inactive (14) Acute on chronic anemia: Code(s): D64.9 - Anemia, unspecified Status: Acute Additional Plan 08/11/21 Patient has apparently had 4 episodes of syncope or near syncope in the last 1.5 weeks. I suspect she may have orthostatic hypotension and with reports of ?always being dizzy? she probably has autonomic dysfunction. She will be monitor on telemetry however to rule out cardiac dysrhythmia. She has chronic carotid artery disease thus no need to repeat ultrasounds. Nephrology consulted for dialysis. Chest x-ray showed free intraperitoneal gas below the right hemidiaphragm though her abdominal exam is completely benign. Will alert nephrology, patient may need technique reviewed. Blood pressures were reviewed and they are stable. I do however suspect that she probably has orthostatic hypotension thus will monitor orthostatic vital signs. Her antihypertensives will be reviewed and resumed as appropriate. Continue levothyroxine and check TSH. Continue basal insulin. Initiate sliding scale insulin, Accu-Cheks, and hypoglycemic protocol. Check hemoglobin A1c. 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 No evidence of infection on exam today. Wound nurse consulted. 08/12/21 cont workup x syncope orthostatics PHD tonamanuel, Dr Gee managing rising WBC without source CT abd pelvis ordered CXR reviewed, free air likely associated w PD healing wound on LLE that does not appear to be source of infection on gross examination blood cultures ordered POC reviewed w Dr Gee will empirically cover for skin microbes pending further workup 08/13/21 pt doing ok WBC downtrending on Zosyn Blood cx pending complains of LLE heaviness and difficulty lifting moving ext -> US to r/o DVT of thigh Hgb < 7 on am labs 1UPRBC
[2021-08-14] MEDS: carvediloL 6.25 MG TABLET PO (20:47)
[2021-08-14 20:51] LABS: Glucose Point of Care 273 mg/dl (65-105)
[2021-08-15] VITALS (13 sets, daily range): BP systolic 96–135; BP diastolic 35–69; PULSE 58–67; RESP 16–20; TEMP 36.4–36.8; O2SAT 94–99
[2021-08-15] MEDS: LEVOTHYROXINE SODIUM 75 MCG TABLET PO (05:43)
[2021-08-15 06:43] LABS: Basophils Absolute Auto 0.1 K/mm3 (0.0-0.1); Basophils Percent Auto 0.4 % (0.2-1.2); Eosinophils Absolute Auto 0.3 K/mm3 (0-0.3); Eosinophils Percent Auto 2.9 % (0-4.4); Hematocrit 30.3 % (37.0-47.0); Hemoglobin 9.3 g/dL (12.0-15.0); Immature Granulocyte Absolute 0.16 K/mm3 (0.00-0.031); Immature Granulocyte Percent A 1.4 % (0-0.5); Lymphocytes Absolute Auto 1.22 K/mm3 (0.9-3.2); Lymphocytes Percent Auto 10.9 % (18.3-44.2); Mean Corpuscular HGB Conc 30.7 g/dl (32-36); Mean Corpuscular Hemoglobin 31.3 pg (26-34); Mean Platelet Volume 8.9 fl (7.4-10.4); Monocytes Absolute Auto 1.1 K/mm3 (0.1-0.6); Monocytes Percent Auto 10.1 % (2.6-8.5); Neutrophils Absolute Auto 8.3 K/mm3 (1.3-6.7); Neutrophils Percent Auto 74.3 % (45.5-73.1); Platelet Count Result 171 k/mm3 (150-375); Red Blood Count 2.97 M/mm3 (4.2-5.4); Red Cell Distribution Width 14.4 % (11.5-14.5); White Blood Count 11.2 K/mm3 (4.5-10.0)
[2021-08-15 07:02] LABS: Anion Gap 5 mmol/L (8-16); Blood Urea Nitrogen 30 mg/dL (7-17); Calcium 8.3 mg/dL (8.4-10.2); Carbon Dioxide 29 mmol/L (22-30); Chloride 99 mmol/L (98-107); Estimated CRCL calculation 9 ml/min; Estimated Glomerular Filt Rate 10; Glucose 275 mg/dL (65-110); Magnesium 1.8 mg/dL (1.6-2.3); Potassium 3.7 mmol/L (3.4-5.0); Sodium 133 mmol/L (137-145)
[2021-08-15 07:33] LABS: Glucose Point of Care 239 mg/dl (65-105)
[2021-08-15] MEDS: THERAPEUTIC MULTIVITAMINS/MINERALS TAB (*BKC) 1 TABLET PO (09:06)
[2021-08-15] MEDS: SEVELAMER CARBONATE 800 MG TABLET 3200 MG PO ×3 (09:06→17:40)
[2021-08-15] MEDS: CHOLECALCIFEROL 1,000 UNITS TABLET 2000 UNITS PO (09:06)
[2021-08-15] MEDS: SERTRALINE HCL 50 MG TABLET PO (09:07)
[2021-08-15] MEDS: ASPIRIN 81 MG ENTERIC TABLET PO (09:07)
[2021-08-15] MEDS: OMEGA 3 POLYUNSAT FATTY ACIDS 1 GM CAP PO (09:07)
[2021-08-15] MEDS: ROSUVASTATIN 10 MG TABLET 40 MG PO (09:07)
[2021-08-15] MEDS: POTASSIUM CHLORIDE 20 MEQ TABLET.ER PO (09:07)
[2021-08-15] MEDS: INSULIN GLARGINE (*BKC) 100 UNITS/ML 36 UNITS SUB-Q (09:13)
[2021-08-15] MEDS: INSULIN ASPART (*BKC) 100 UNITS/ML SUB-Q (09:13)
[2021-08-15] MEDS: SOLOSITE WOUND GEL 85 GM TUBE 1 APPLIC TOPICAL (09:17)
[2021-08-15 11:17] LABS: Glucose Point of Care 210 mg/dl (65-105)
--- NOTE | 2021-08-15 13:28 | PM.PNNEP ---
Progress Note: A&P Assessment and Plan (1) ESRD (end stage renal disease): Code(s): N18.6 - End stage renal disease Status: Chronic Assessment and Plan: continue nightly CCPD while hospitalized follow electrolytes, volume status, and clearance (2) Syncope: Onset Date: ~07/2021 Qualifiers: Syncope type: unspecified Qualified Code(s): R55 - Syncope and collapse Code(s): R55 - Syncope and collapse Status: Acute Assessment and Plan: work-up in progress Echo and carotid duplex results noted PT/OT as tolerated (3) Anemia: Code(s): D64.9 - Anemia, unspecified Status: Chronic Assessment and Plan: PRBC transfusion on 08/13/21 follow trend of H/H Epogen 3x/week while hospitalized (4) PVD (peripheral vascular disease): Code(s): I73.9 - Peripheral vascular disease, unspecified Status: Chronic Assessment and Plan: s/p left 1st and 2nd toe amputation checking arterial dopplers (5) Hypertension: Onset Date: Unknown Code(s): I10 - Essential (primary) hypertension Status: Chronic Assessment and Plan: reasonable control follow trend of hemodynamics (6) Diabetes: Code(s): E11.9 - Type 2 diabetes mellitus without complications Status: Chronic Assessment and Plan: follow accuchecks on SSI and Lantus Will continue to follow. Subjective Date/time seen: 08/15/21 13:28 Tolerated peritoneal dialysis treatment overnight without any issues or events; given issues with hypotension yesterday, BP medications reduced and diuretics on hold; no apparent distress voiced at this time. Exam Narrative: General: WD/WN elderly female in NAD Heart: normal S1 and S2; no rub Lungs: clear to auscultation Abdomen: soft, nontender, nondistended, positive bowel sounds Extremities: no cyanosis or clubbing; no edema Skin: warm and intact Objective Data Vital Signs Vital Signs: Vital Signs Temp Pulse Resp BP Pulse Ox 08/15/21 09:31 96/46 L 08/15/21 08:31 36.8 C 59 L 20 99/69 L 08/15/21 08:00 117/35 L 08/15/21 07:00 36.8 C 59 L 20 99/69 L 99 08/15/21 04:00 58 L 08/15/21 00:00 58 L 08/14/21 22:00 36.9 C 63 20 145/52 H 95 08/14/21 20:47 64 08/14/21 20:00 63 20 145/52 H 95 08/14/21 16:06 36.9 C 66 14 96/38 L 98 08/14/21 16:00 65 Intake/Output Intake/Output: Intake & Output 08/12/21 08/13/21 08/14/21 08/15/21 23:59 23:59 23:59 23:59 Intake Total 650 1762 1502 562 Output Total 0 2501 1759 Balance 650 6810 -719 -5516 Meds/Results Medications: Active Medications Generic Name Dose Route Start Last Admin Trade Name Freq PRN Reason Stop Dose Admin Hydrocodone Bitart/Acetaminophen 1 tab 08/12/21 19:01 08/15/21 13:41 Hydrocodone/Acetaminophen (*Crx) 5-325 Mg Tablet PO 1 tab BID PRN Administration Pain (Scale Score 4-6) Aspirin 81 mg 08/12/21 09:00 08/15/21 09:07 Aspirin 81 Mg Enteric Tablet PO 81 mg DAILY OSIEL Administration Carvedilol 3.125 mg 08/15/21 21:00 Carvedilol 3.125 Mg Tablet PO Q12HR OSIEL Clopidogrel Bisulfate 75 mg 08/12/21 09:00 08/14/21 09:23 Clopidogrel Bisulfate 75 Mg Tablet PO 75 mg DAILY OSIEL Administration Dextrose 12.5 gm 08/11/21 23:42 Dextrose 50% 25 Gm/50 Ml Syringe IV PUSH PRN PRN Hypoglycemia Protocol Epoetin Salvador-epbx 20,000 units 08/12/21 11:30 08/15/21 13:42 Epoetin Salvador-Epbx 20,000 Units/Ml Vial SUB-Q 20,000 units MOWEFR OSIEL Administration Fish Oil 1 gm 08/12/21 09:00 08/15/21 09:07 Howard 3 Polyunsat Fatty Acids 1 Gm Cap PO 1 gm DAILY OSIEL Administration Gabapentin 400 mg 08/11/21 23:45 08/14/21 17:07 Gabapentin 400 Mg Capsule PO 400 mg HS OSIEL Administration Glucagon 1 mg 08/11/21 23:42 Glucagon For Inj 1 Mg Vial IM PRN PRN Hypoglycemia
--- NOTE | 2021-08-15 13:28 | P.PNNP_ITS ---
Progress Note: A&P Assessment and Plan (1) ESRD (end stage renal disease): Code(s): N18.6 - End stage renal disease Status: Chronic Assessment and Plan: * continue nightly CCPD while hospitalized * follow electrolytes, volume status, and clearance (2) Syncope: Onset Date: ~07/2021 Qualifiers: Syncope type: unspecified Qualified Code(s): R55 - Syncope and collapse Code(s): R55 - Syncope and collapse Status: Acute Assessment and Plan: * work-up in progress * Echo and carotid duplex results noted * PT/OT as tolerated (3) Anemia: Code(s): D64.9 - Anemia, unspecified Status: Chronic Assessment and Plan: * PRBC transfusion on 08/13/21 * follow trend of H/H * Epogen 3x/week while hospitalized (4) PVD (peripheral vascular disease): Code(s): I73.9 - Peripheral vascular disease, unspecified Status: Chronic Assessment and Plan: * s/p left 1st and 2nd toe amputation * checking arterial dopplers (5) Hypertension: Onset Date: Unknown Code(s): I10 - Essential (primary) hypertension Status: Chronic Assessment and Plan: * reasonable control * follow trend of hemodynamics (6) Diabetes: Code(s): E11.9 - Type 2 diabetes mellitus without complications Status: Chronic Assessment and Plan: * follow accuchecks * on SSI and Lantus Will continue to follow. Subjective Date/time seen: 08/15/21 13:28 Tolerated peritoneal dialysis treatment overnight without any issues or events; given issues with hypotension yesterday, BP medications reduced and diuretics on hold; no apparent distress voiced at this time. Exam Narrative: General: WD/WN elderly female in NAD Heart: normal S1 and S2; no rub Lungs: clear to auscultation Abdomen: soft, nontender, nondistended, positive bowel sounds Extremities: no cyanosis or clubbing; no edema Skin: warm and intact Objective Data Vital Signs Vital Signs: Vital Signs Temp Pulse Resp BP Pulse Ox 08/15/21 09:31 96/46 L 08/15/21 08:31 36.8 C 59 L 20 99/69 L 08/15/21 08:00 117/35 L 08/15/21 07:00 36.8 C 59 L 20 99/69 L 99 08/15/21 04:00 58 L 05/09/22 00:00 58 L 08/14/21 22:00 36.9 C 63 20 145/52 H 95 08/14/21 20:47 64 08/14/21 20:00 63 20 145/52 H 95 08/14/21 16:06 36.9 C 66 14 96/38 L 98 08/14/21 16:00 65 Intake/Output Intake/Output: Intake & Output 08/12/21 08/13/21 08/14/21 08/15/21 23:59 23:59 23:59 23:59 Intake Total 650 1762 1502 562 Output Total 0 2501 1759 Balance 650 7980 -587 -2613 Meds/Results Medications: Active Medications Generic Name Dose Route Start Last Admin Trade Name Freq PRN Reason Stop Dose Admin Hydrocodone Bitart/Acetaminophen 1 tab 08/12/21 19:01 08/15/21 13:41 Hydrocodone/Acetaminophen (*Crx) 5-325 Mg Tablet PO 1 tab BID PRN Administration Pain (Scale Score 4-6) Aspirin 81 mg 08/12/21 09:00 08/15/21 09:07 Aspirin 81 Mg Enteric Tablet PO 81 mg DAILY OSIEL Administration Carvedilol 3.125 mg 08/15/21 21:00 Carvedilol 3.1
[2021-08-15] MEDS: HYDROcodone/acetaminophen (*CRX) 5-325 MG TABLET 1 TAB PO (13:41)
[2021-08-15] MEDS: EPOETIN ALFA-EPBX 20,000 UNITS/ML VIAL 20000 UNITS SUB-Q (13:42)
--- NOTE | 2021-08-15 15:55 | P.PNIM_ITS ---
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 Status: Acute (3) End-stage renal disease on peritoneal dialysis: Code(s): N18.6 - End stage renal disease; Z99.2 - Dependence on renal dialysis Status: Acute (4) Syncope: Onset Date: ~07/2021 Qualifiers: Syncope type: unspecified Qualified Code(s): R55 - Syncope and collapse Code(s): R55 - Syncope and collapse Status: Acute (5) Depression: Code(s): F32.A - Depression, unspecified Status: Acute (6) Hypertension: Onset Date: Unknown Code(s): I10 - Essential (primary) hypertension Status: Chronic (7) Thyroid nodule: Code(s): E04.1 - Nontoxic single thyroid nodule Status: Acute (8) Hyperlipidemia: Qualifiers: Hyperlipidemia type: unspecified Qualified Code(s): E78.5 - Hyperlipidemia, unspecified Code(s): E78.5 - Hyperlipidemia, unspecified Status: Acute (9) Hypothyroidism: Qualifiers: Hypothyroidism type: unspecified Qualified Code(s): E03.9 - Hypothyroidism, unspecified Code(s): E03.9 - Hypothyroidism, unspecified Status: Acute (10) Abdominal mass: Onset Date: ~08/2021 Code(s): R19.00 - Intra-abdominal and pelvic swelling, mass and lump, unspecified site Status: Acute (11) Diabetic neuropathy associated with diabetes mellitus due to underlying condition: Code(s): E08.40 - Diabetes mellitus due to underlying condition with diabetic neuropathy, unspecified Status: Chronic (12) Anemia: Code(s): D64.9 - Anemia, unspecified Status: Chronic (13) Anemia in chronic kidney disease, on chronic dialysis: Code(s): N18.6 - End stage renal disease; D63.1 - Anemia in chronic kidney disease; Z99.2 - Dependence on renal dialysis Status: Inactive (14) Acute on chronic anemia: Code(s): D64.9 - Anemia, unspecified Status: Acute Additional Plan 08/11/21 Patient has apparently had 4 episodes of syncope or near syncope in the last 1.5 weeks. I suspect she may have orthostatic hypotension and with reports of ?always being dizzy? she probably has autonomic dysfunction. She will be monitor on telemetry however to rule out cardiac dysrhythmia. She has chronic carotid artery disease thus no need to repeat ultrasounds. Nephrology consulted for dialysis. Chest x-ray showed free intraperitoneal gas below the right hemidiaphragm though her abdominal exam is completely benign. Will alert nephrology, patient may need technique reviewed. Blood pressures were reviewed and they are stable. I do however suspect that she probably has orthostatic hypotension thus will monitor orthostatic vital signs. Her antihypertensives will be reviewed and resumed as appropriate. Continue levothyroxine and check TSH. Continue basal insulin. Initiate sliding scale insulin, Accu-Cheks, and hypoglycemic protocol. Check hemoglobin A1c. 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 No evidence of infection on exam today. Wound nurse consulted. 08/12/21 cont workup x syncope orthostatics PHD morrison, Dr Gee managing rising WBC without source CT abd pelvis ordered CXR reviewed, free air likely associated w PD
[2021-08-15 16:52] LABS: Glucose Point of Care 107 mg/dl (65-105)
--- NOTE | 2021-08-15 17:18 | PM.PNGS ---
Progress Note: A&P Assessment and Plan (1) Cholelithiasis NOS: Code(s): K80.20 - Calculus of gallbladder without cholecystitis without obstruction Status: Acute Assessment and Plan: Cholelithiasis noted on CT. No evidence of acute cholecystitis and she is not having any abdominal pain at this time. No indication for urgent surgical intervention. Patient and family are aware that if a cholecystectomy was considered, she would require conversion to hemodialysis and need a tunneled dialysis catheter prior to having surgery. No plans for surgery at this time. Would recommend further work-up of the abdominal mass as mentioned below. (2) Abdominal mass: Onset Date: ~08/2021 Code(s): R19.00 - Intra-abdominal and pelvic swelling, mass and lump, unspecified site Status: Acute Assessment and Plan: CT found a mass in the small bowel mesentery concerning for a metastatic mass. Primary source is unclear at this point, but high suspicion for her having a neuroendocrine tumor. She has no signs of obstruction from this mass and is able to tolerate a diet. Her bowels are moving. We have discussed possibly proceeding with an octreotide nuclear scan, which could be done here, but is done infrequently. It would take time to receive the appropriate medication and then also is a long test in itself. [facility] believes this would not be done today or likely tomorrow, but would most likely take two days before they would be prepared to do this. This is not something that has to be done as an inpatient and could always be further evaluated as an outpatient. Another option is to have GI evaluate the patient to consider an upper endoscopy to look for a GI source in the upper GI tract. This could potentially be considered while she is an inpatient since her Plavix is already on hold. We will consult GI to get their recommendations. Another consideration could be other outpatient imaging such as a PET scan and follow-up with an Oncologist. (3) Peripheral vascular disease: Onset Date: Unknown Code(s): I73.9 - Peripheral vascular disease, unspecified Status: Acute Assessment and Plan: Plavix remains on hold with her last dose on 08/14. Would keep this on hold if okay with the Hospitalist until GI evaluates the patient and decides on any endoscopic evaluation while inpatient. 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 (6) Syncope: Onset Date: ~07/2021 Qualifiers: Syncope type: unspecified Qualified Code(s): R55 - Syncope and collapse Code(s): R55 - Syncope and collapse Status: Acute Assessment and Plan: Main reason for her admission. Management per Hospitalist. (7) Hypertension: Onset Date: Unknown Code(s): I10 - Essential (primary) hypertension Status: Chronic (8) History of coronary artery stent placement: Code(s): Z95.5 - Presence of coronary angioplasty implant and graft Status: Acute Additional Plan I have discussed the patient's case and plan of care with Dr. Geiger. Subjective Subjective Date/Time Seen: 08/15/21 17:18 Interval history: This is a 76 yo F with multiple medical problems who presented to the ER for evaluation of weakness and near syncopal episodes. She is being treated for orthostatic hypotension. She had a chest x-ray that showed free air, and subsequently a CT abd/pelvis was ordered. She was also found to have a mass in the small bowel mesentery found incidentally on CT, and our service is seeing her for this issue. CT show
[2021-08-15] MEDS: GABAPENTIN 400 MG CAPSULE PO (17:41)
[2021-08-15] MEDS: INSULIN GLARGINE (*BKC) 100 UNITS/ML 14 UNITS SUB-Q (17:41)
[2021-08-15 20:50] LABS: Ionized Calcium 4.6 mg/dL (4.8-5.6)
[2021-08-15 21:50] LABS: Glucose Point of Care 170 mg/dl (65-105)
[2021-08-15] MEDS: carvediloL 3.125 MG TABLET PO (22:16)
[2021-08-16] VITALS (14 sets, daily range): BP systolic 113–157; BP diastolic 42–71; PULSE 61–82; RESP 14–18; TEMP 36.3–37.1; O2SAT 97–100; BMI 10.0
[2021-08-16] MEDS: LEVOTHYROXINE SODIUM 75 MCG TABLET PO (06:03)
[2021-08-16 06:31] LABS: Basophils Absolute Auto 0.1 K/mm3 (0.0-0.1); Basophils Percent Auto 0.6 % (0.2-1.2); Eosinophils Absolute Auto 0.4 K/mm3 (0-0.3); Eosinophils Percent Auto 3.9 % (0-4.4); Hematocrit 29.6 % (37.0-47.0); Hemoglobin 9.1 g/dL (12.0-15.0); Immature Granulocyte Absolute 0.21 K/mm3 (0.00-0.031); Lymphocytes Absolute Auto 1.55 K/mm3 (0.9-3.2); Lymphocytes Percent Auto 14.8 % (18.3-44.2); Mean Corpuscular HGB Conc 30.7 g/dl (32-36); Mean Corpuscular Hemoglobin 31.9 pg (26-34); Mean Corpuscular Volume 103.9 fl (80-100); Mean Platelet Volume 9.1 fl (7.4-10.4); Monocytes Absolute Auto 1.1 K/mm3 (0.1-0.6); Monocytes Percent Auto 10.8 % (2.6-8.5); Neutrophils Absolute Auto 7.1 K/mm3 (1.3-6.7); Neutrophils Percent Auto 67.9 % (45.5-73.1); Nucleated Red Blood Cells Perc 0.2 % (0.0-0.2); Platelet Count Result 166 k/mm3 (150-375); Red Blood Count 2.85 M/mm3 (4.2-5.4); Red Cell Distribution Width 14.5 % (11.5-14.5); White Blood Count 10.5 K/mm3 (4.5-10.0)
[2021-08-16 06:45] LABS: Alanine Aminotransferase 11 U/L (6-35); Albumin Level 2.7 g/dL (3.5-5.1); Alkaline Phosphatase 36 U/L (38-126); Anion Gap 7 mmol/L (8-16); Aspartate Amino Transferase 28 U/L (14-36); Bilirubin,Total 0.2 mg/dL (0.2-1.3); Blood Urea Nitrogen 29 mg/dL (7-17); Calcium 8.2 mg/dL (8.4-10.2); Carbon Dioxide 28 mmol/L (22-30); Chloride 100 mmol/L (98-107); Estimated CRCL calculation 9 ml/min; Estimated Glomerular Filt Rate 9; Glucose 102 mg/dL (65-110); Magnesium 1.8 mg/dL (1.6-2.3); Potassium 3.6 mmol/L (3.4-5.0); Sodium 135 mmol/L (137-145)
[2021-08-16 08:01] LABS: Glucose Point of Care 88 mg/dl (65-105)
[2021-08-16] MEDS: OMEGA 3 POLYUNSAT FATTY ACIDS 1 GM CAP PO (09:12)
[2021-08-16] MEDS: CHOLECALCIFEROL 1,000 UNITS TABLET 2000 UNITS PO (09:13)
[2021-08-16] MEDS: ROSUVASTATIN 10 MG TABLET 40 MG PO (09:13)
[2021-08-16] MEDS: ASPIRIN 81 MG ENTERIC TABLET PO (09:13)
[2021-08-16] MEDS: THERAPEUTIC MULTIVITAMINS/MINERALS TAB (*BKC) 1 TABLET PO (09:13)
[2021-08-16] MEDS: SERTRALINE HCL 50 MG TABLET PO (09:13)
[2021-08-16] MEDS: POTASSIUM CHLORIDE 20 MEQ TABLET.ER PO (09:13)
[2021-08-16] MEDS: carvediloL 3.125 MG TABLET PO ×2 (09:14→20:49)
[2021-08-16] MEDS: SEVELAMER CARBONATE 800 MG TABLET 3200 MG PO ×3 (09:14→18:03)
[2021-08-16] MEDS: INSULIN GLARGINE (*BKC) 100 UNITS/ML 36 UNITS SUB-Q (09:20)
[2021-08-16] MEDS: SOLOSITE WOUND GEL 85 GM TUBE 1 APPLIC TOPICAL (09:32)
--- NOTE | 2021-08-16 10:30 | P.PNNP_ITS ---
Progress Note: A&P Assessment and Plan (1) ESRD (end stage renal disease): Code(s): N18.6 - End stage renal disease Status: Chronic Assessment and Plan: * continue nightly CCPD while hospitalized * follow electrolytes, volume status, and clearance (2) Syncope: Onset Date: ~07/2021 Qualifiers: Syncope type: unspecified Qualified Code(s): R55 - Syncope and collapse Code(s): R55 - Syncope and collapse Status: Acute Assessment and Plan: * work-up in progress * Echo and carotid duplex results noted * backing off onBP medications * PT/OT as tolerated (3) Abdominal mass: Onset Date: ~08/2021 Code(s): R19.00 - Intra-abdominal and pelvic swelling, mass and lump, unspecified site Status: Acute Assessment and Plan: * incidentally noted on CT scan of abdomen * Surgery evaluation and recommendations noted (4) Anemia: Code(s): D64.9 - Anemia, unspecified Status: Chronic Assessment and Plan: * PRBC transfusion on 08/13/21 * follow trend of H/H * Epogen 3x/week while hospitalized (5) PVD (peripheral vascular disease): Code(s): I73.9 - Peripheral vascular disease, unspecified Status: Chronic Assessment and Plan: * s/p left 1st and 2nd toe amputation * arterial dopplers results noted * follow-up with Vascular surgery (6) Hypertension: Onset Date: Unknown Code(s): I10 - Essential (primary) hypertension Status: Chronic Assessment and Plan: * reasonable control * follow trend of hemodynamics (7) Diabetes: Code(s): E11.9 - Type 2 diabetes mellitus without complications Status: Chronic Assessment and Plan: * follow accuchecks * on SSI and Lantus Will continue to follow. Subjective Date/time seen: 08/16/21 10:30 Continues to do well with nightly peritoneal dialysis treatments; BP seems a bit more stable with recent BP medications changes/adjustments; no acute distress voiced at this time. Exam Narrative: General: WD/WN elderly female in NAD Heart: normal S1 and S2; no rub Lungs: clear to auscultation Abdomen: soft, nontender, nondistended, positive bowel sounds Extremities: no cyanosis or clubbing; no edema Skin: no rash Objective Data Vital Signs Vital Signs: Vital Signs Temp Pulse Resp BP Pulse Ox 05/10/22 07:32 36.8 C 65 14 134/45 L 08/16/21 06:00 36.8 C 65 14 134/45 L 100 08/16/21 04:00 66 08/16/21 00:00 61 08/15/21 22:16 63 08/15/21 21:24 112/42 L 08/15/21 21:05 36.6 C 65 16 135/48 L 94 08/15/21 20:00 65 16 94 08/15/21 19:27 36.4 C L 67 16 133/42 L 08/15/21 16:00 62 08/15/21 14:00 36.4 C L 67 16 133/42 L 97 Intake/Output Intake/Output: Intake & Output 08/13/21 08/14/21 08/15/21 08/16/21 23:59 23:59 23:59 23:59 Intake Total 1762 1502 902 320 Output Total 2501 1759 -158 Balance 1762 -621 -850 478 Meds/Results Medications: Active Medications Generic Name Dose Route Start Last Admin Trade Name Freq PRN Reason Stop Dose Admin Hydrocodone Bitart/Acetaminophen 1 tab 08/12/21 19:01 08/15/21 13:41
--- NOTE | 2021-08-16 10:30 | PM.PNNEP ---
Progress Note: A&P Assessment and Plan (1) ESRD (end stage renal disease): Code(s): N18.6 - End stage renal disease Status: Chronic Assessment and Plan: continue nightly CCPD while hospitalized follow electrolytes, volume status, and clearance (2) Syncope: Onset Date: ~07/2021 Qualifiers: Syncope type: unspecified Qualified Code(s): R55 - Syncope and collapse Code(s): R55 - Syncope and collapse Status: Acute Assessment and Plan: work-up in progress Echo and carotid duplex results noted backing off onBP medications PT/OT as tolerated (3) Abdominal mass: Onset Date: ~08/2021 Code(s): R19.00 - Intra-abdominal and pelvic swelling, mass and lump, unspecified site Status: Acute Assessment and Plan: incidentally noted on CT scan of abdomen Surgery evaluation and recommendations noted (4) Anemia: Code(s): D64.9 - Anemia, unspecified Status: Chronic Assessment and Plan: PRBC transfusion on 08/13/21 follow trend of H/H Epogen 3x/week while hospitalized (5) PVD (peripheral vascular disease): Code(s): I73.9 - Peripheral vascular disease, unspecified Status: Chronic Assessment and Plan: s/p left 1st and 2nd toe amputation arterial dopplers results noted follow-up with Vascular surgery (6) Hypertension: Onset Date: Unknown Code(s): I10 - Essential (primary) hypertension Status: Chronic Assessment and Plan: reasonable control follow trend of hemodynamics (7) Diabetes: Code(s): E11.9 - Type 2 diabetes mellitus without complications Status: Chronic Assessment and Plan: follow accuchecks on SSI and Lantus Will continue to follow. Subjective Date/time seen: 08/16/21 10:30 Continues to do well with nightly peritoneal dialysis treatments; BP seems a bit more stable with recent BP medications changes/adjustments; no acute distress voiced at this time. Exam Narrative: General: WD/WN elderly female in NAD Heart: normal S1 and S2; no rub Lungs: clear to auscultation Abdomen: soft, nontender, nondistended, positive bowel sounds Extremities: no cyanosis or clubbing; no edema Skin: no rash Objective Data Vital Signs Vital Signs: Vital Signs Temp Pulse Resp BP Pulse Ox 08/16/21 07:32 36.8 C 65 14 134/45 L 05/10/22 06:00 36.8 C 65 14 134/45 L 100 08/16/21 04:00 66 08/16/21 00:00 61 08/15/21 22:16 63 08/15/21 21:24 112/42 L 08/15/21 21:05 36.6 C 65 16 135/48 L 94 08/15/21 20:00 65 16 94 08/15/21 19:27 36.4 C L 67 16 133/42 L 08/15/21 16:00 62 08/15/21 14:00 36.4 C L 67 16 133/42 L 97 Intake/Output Intake/Output: Intake & Output 08/13/21 08/14/21 08/15/21 08/16/21 23:59 23:59 23:59 23:59 Intake Total 1762 1502 902 320 Output Total 2501 1759 -158 Balance 1762 -168 -612 478 Meds/Results Medications: Active Medications Generic Name Dose Route Start Last Admin Trade Name Freq PRN Reason Stop Dose Admin Hydrocodone Bitart/Acetaminophen 1 tab 08/12/21 19:01 08/15/21 13:41 Hydrocodone/Acetaminophen (*Crx) 5-325 Mg Tablet PO 1 tab BID PRN Administration Pain (Scale Score 4-6) Aspirin 81 mg 08/12/21 09:00 08/16/21 09:13 Aspirin 81 Mg Enteric Tablet PO 81 mg DAILY OSIEL Administration Carvedilol 3.125 mg 08/15/21 21:00 08/16/21 09:14 Carvedilol 3.125 Mg Tablet PO 3.125 mg Q12HR OSIEL Administration Clopidogrel Bisulfate 75 mg 08/12/21 09:00 08/14/21 09:23 Clopidogrel Bisulfate 75 Mg Tablet PO 75 mg DAILY OSIEL Administration Dextrose 12.5 gm 08/11/21 23:42 Dextrose 50% 25 Gm/50 Ml Syringe IV PUSH PRN PRN Hypoglycemia Protocol Epoetin Salvador-epbx 20,000 units 08/12/21 11:30 08/15/21 13:42 Epoetin Salvador-Epbx 20,000 Units/Ml Vial SUB-Q 20,000 units MOWEFR OSIEL Admi
[2021-08-16 11:48] LABS: Glucose Point of Care 141 mg/dl (65-105)
--- NOTE | 2021-08-16 12:31 | WPDGICN ---
Assessment and Plan Assessment and plan (1) Mesenteric mass: Code(s): K63.89 - Other specified diseases of intestine Status: Acute Assessment and Plan: Mesenteric mass identified on CT scans. This is somewhat suspicious for carcinoid tumor. Plan is for colonoscopy an EGD as patient is off of Plavix. We will search for any obvious primary. If this is negative a small bowel series can be considered. Would additionally suggest that perhaps an octreotide nuclear scan be performed to search for other lesions. If endoscopy is unable to further identify this lesion then perhaps laparoscopy Or surgical evaluation for biopsy may need to be considered. (2) Anemia: Code(s): D64.9 - Anemia, unspecified Status: Chronic Assessment and Plan: patient admitted the hospital with a hemoglobin of 6-1/2. She is improved dramatically after transfusion. Etiology of the anemia may be multifactorial. Perhaps related to her chronic kidney disease. Stool for Hemoccult has been negative. (3) Diabetes: Code(s): E11.9 - Type 2 diabetes mellitus without complications Status: Chronic (4) End-stage renal disease on peritoneal dialysis: Code(s): N18.6 - End stage renal disease; Z99.2 - Dependence on renal dialysis Status: Acute (5) Cholelithiasis NOS: Code(s): K80.20 - Calculus of gallbladder without cholecystitis without obstruction Status: Acute Assessment and Plan: Gallstones identified on CT scan appears to be asymptomatic in observation encouraged at this point. GI Consult Note Consult date/time: 08/16/21 12:31 HPI: Jing Alfredo is a 76 year old female I am asked to see because of a mesenteric mass. Patient presented to the ER on 08/11/2021 because of weakness and near syncopal episodes. She was found to be dehydrated with orthostatic hypotension. She states she feels improved after rehydration and blood transfusion. Patient was also found to be anemic. She goes no history of GI blood loss. In the emergency room a CT scan of the abdomen was performed which revealed a mass in the small-bowel mesentery. Concern is that this is a neuroendocrine tumor such as a carcinoid. I have been asked to see for possible GI endoscopy. patient's past medical history is significant for end-stage renal disease she is on peritoneal dialysis. etiology for renal disease appears to be diabetes and hypertension. Family history is noncontributory. Patient denies any obvious abdominal pain at present. Review of Systems Review of Systems: All systems reviewed & are unremarkable except as noted in HPI and below PMFSH Past Medical History Medical History Acute non-ST elevation myocardial infarction (NSTEMI) Anemia in chronic kidney disease, on chronic dialysis Atherosclerotic heart disease Bilateral carotid artery stenosis 70% stenosis bilateral carotids December 2018 CHF (congestive heart failure) Echocardiogram April 2020: EF 60 65%, grade 1 diastolic dysfunction, moderately increased left ventricular wall thickness, basal inferior wall, mid inferior wall are hypokinetic, moderate left atrial enlargement, mild mitral and tricuspid regurgitation, mild pulmonary hypertension with RVSP of 37 CVA (cerebral vascular accident) (~12/2016) Cerebellum and right occipital lobe due to septic emboli Diabetes mellitus Diabetic neuropathy End-stage renal disease on hemodialysis Initiated hemodialysis April 2020, transition to peritoneal dialysis thereafter End-stage renal disease on peritoneal dialysis Endocarditis Aortic valve endocarditis December 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
--- NOTE | 2021-08-16 13:28 | P.PNIM_ITS ---
Progress Note: A&P Assessment and Plan (1) Peripheral vascular disease: Onset Date: Unknown Code(s): I73.9 - Peripheral vascular disease, unspecified Status: Acute Assessment and Plan: Status post left 1st and 2nd toe amputation proximally 2 weeks ago. No evidence of infection on exam today. Wound nurse consulted. (2) Insulin dependent type 2 diabetes mellitus: Onset Date: Unknown Code(s): E11.9 - Type 2 diabetes mellitus without complications; Z79.4 - senior care ( current) use of insulin Status: Acute Assessment and Plan: Continue basal insulin. Initiate sliding scale insulin, Accu-Cheks, and hypoglycemic protocol. Check hemoglobin A1c. (3) End-stage renal disease on peritoneal dialysis: Code(s): N18.6 - End stage renal disease; Z99.2 - Dependence on renal dialysis Status: Acute Assessment and Plan: Nephrology consulted for dialysis. (4) Syncope: Onset Date: ~07/2021 Qualifiers: Syncope type: unspecified Qualified Code(s): R55 - Syncope and collapse Code(s): R55 - Syncope and collapse Status: Acute Assessment and Plan: Patient has apparently had 4 episodes of syncope or near syncope in the last 1.5 weeks. Ongoing orthostatic hypotension (5) Depression: Code(s): F32.A - Depression, unspecified Status: Acute (6) Hypertension: Onset Date: Unknown Code(s): I10 - Essential (primary) hypertension Status: Chronic (7) Thyroid nodule: Code(s): E04.1 - Nontoxic single thyroid nodule Status: Acute (8) Hyperlipidemia: Qualifiers: Hyperlipidemia type: unspecified Qualified Code(s): E78.5 - Hyperlipidemia, unspecified Code(s): E78.5 - Hyperlipidemia, unspecified Status: Acute (9) Hypothyroidism: Qualifiers: Hypothyroidism type: unspecified Qualified Code(s): E03.9 - Hypo thyroidism, unspecified Code(s): E03.9 - Hypothyroidism, unspecified Status: Acute Assessment and Plan: Continue levothyroxine and check TSH. (10) Abdominal mass: Onset Date: ~08/2021 Code(s): R19.00 - Intra-abdominal and pelvic swelling, mass and lump, unspecified site Status: Acute (11) Diabetic neuropathy associated with diabetes mellitus due to underlying condition: Code(s): E08.40 - Diabetes mellitus due to underlying condition with diabetic neuropathy, unspecified Status: Chronic (12) Anemia: Code(s): D64.9 - Anemia, unspecified Status: Chronic (13) Anemia in chronic kidney disease, on chronic dialysis: Code(s): N18.6 - End stage renal disease; D63.1 - Anemia in chronic kidney disease; Z99.2 - Dependence on renal dialysis Status: Inactive (14) Acute on chronic anemia: Code(s): D64.9 - Anemia, unspecified Status: Acute Additional Plan 08/11/21 Patient has apparently had 4 episodes of syncope or near syncope in the last 1.5 weeks. I suspect she may have orthostatic hypotension and with reports of ?always being dizzy? she probably has autonomic dysfunction. She will be monitor on telemetry however to rule out cardiac dysrhythmia. She has chronic carotid artery disease thus no need to repeat ultrasounds. Nephrology consulted for dialysis. Chest x-ray showed free intraperitoneal gas below the right hemidiaphragm though her abdominal exam is completely benign. Will alert nephrology, patient may need technique reviewed. Blood pressures were reviewed and they are stable. I do
[2021-08-16] MEDS: PEG (High)/E-LYTE SOLN 4,000 ML BTL 4000 ML PO (14:49)
[2021-08-16] MEDS: GABAPENTIN 400 MG CAPSULE PO (15:57)
--- NOTE | 2021-08-16 16:28 | PM.PNGS ---
Progress Note: A&P Assessment and Plan (1) Abdominal mass: Onset Date: ~08/2021 Code(s): R19.00 - Intra-abdominal and pelvic swelling, mass and lump, unspecified site Status: Acute Assessment and Plan: CT found a mass in the small bowel mesentery concerning for a metastatic mass. 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 She has no signs of obstruction from this mass and is able to tolerate a diet. Her bowels are moving. GI has been consulted, appreciate their recommendations. Plan for colonoscopy and EGD tomorrow to evaluate for a primary source. If no findings on endoscopy for a primary source, then we could consider the octreotide scan. Not sure if this should be done while inpatient or if this could be set up as an outpatient considering the length of time it would take to set up and complete. The other option is possible an outpatient PET scan. Will decide on this depending on the endoscopy results. (2) Cholelithiasis NOS: Code(s): K80.20 - Calculus of gallbladder without cholecystitis without obstruction Status: Acute Assessment and Plan: Cholelithiasis noted on CT. No evidence of acute cholecystitis and she is not having any abdominal pain at this time. No indication for urgent surgical intervention. Patient and family are aware that if a cholecystectomy was considered, she would require conversion to hemodialysis and need a tunneled dialysis catheter prior to having surgery. No plans for surgery at this time. Would recommend further work-up of the abdominal mass as mentioned below. (3) Peripheral vascular disease: Onset Date: Unknown Code(s): I73.9 - Peripheral vascular disease, unspecified Status: Acute Assessment and Plan: Plavix remains on hold with her last dose on 08/14. This is continuing to be held for colonoscopy and EGD tomorrow. (4) Insulin dependent type 2 diabetes mellitus: Onset Date: Unknown Code(s): E11.9 - Type 2 diabetes mellitus without complications; Z79.4 - [facility] (current) use of insulin Status: Acute (5) End-stage renal disease on peritoneal dialysis: Code(s): N18.6 - End stage renal disease; Z99.2 - Dependence on renal dialysis Status: Acute Assessment and Plan: Nephrology following her peritoneal dialysis. (6) Syncope: Onset Date: ~07/2021 Qualifiers: Syncope type: unspecified Qualified Code(s): R55 - Syncope and collapse Code(s): R55 - Syncope and collapse Status: Acute Assessment and Plan: Main reason for her admission. Management per Hospitalist. (7) Hypertension: Onset Date: Unknown Code(s): I10 - Essential (primary) hypertension Status: Chronic (8) History of coronary artery stent placement: Code(s): Z95.5 - Presence of coronary angioplasty implant and graft Status: Acute Additional Plan I have discussed the patient's case and plan of care with Dr. Geiger. Subjective Subjective Date/Time Seen: 08/16/21 11:28 Patient reports: no new complaints, tolerating a regular diet, flatus, bowel movement and afebrile Interval history: Patient seen and examined. No new complaints today. No abdominal pain, nausea, or vomiting. Exam Const: General: comfortable, no acute distress and alert Orientation/consciousness: patient oriented x3 GI: Inspection: normal to inspection and non-distended GI Palp: Yes Soft to palpation, Yes Tenderness to palpation present (GI) (mild tenderness in the RLQ), No Guarding due to palpation present (GI) and No Rebound tenderness present Auscultation: normal bowel sounds Other: peritoneal dialysis catheter present on the left side of the abdomen. Neuro: General: moves all extremities and no focal motor deficits Psych: Insight: Good insight present (Psych) Judgement: Good judgement present (Psych) Objective Data Vital Signs Vital Sign
[2021-08-16 16:44] LABS: Glucose Point of Care 133 mg/dl (65-105)
[2021-08-16] MEDS: INSULIN GLARGINE (*BKC) 100 UNITS/ML 14 UNITS SUB-Q (18:01)
[2021-08-16] MEDS: HYDROcodone/acetaminophen (*CRX) 5-325 MG TABLET 1 TAB PO (18:07)
[2021-08-16 20:41] LABS: Glucose Point of Care 117 mg/dl (65-105)
[2021-08-17] VITALS (16 sets, daily range): BP systolic 84–165; BP diastolic 43–104; PULSE 56–86; RESP 16–21; TEMP 36.2–37; O2SAT 96–100
[2021-08-17] MEDS: ONDANSETRON INJ 4 MG/2 ML VIAL IV PUSH (04:51)
[2021-08-17] MEDS: LEVOTHYROXINE SODIUM 75 MCG TABLET PO (05:30)
[2021-08-17 07:43] LABS: Glucose Point of Care 137 mg/dl (65-105)
[2021-08-17 08:02] LABS: Anion Gap 8 mmol/L (8-16); Blood Urea Nitrogen 27 mg/dL (7-17); Calcium 8.1 mg/dL (8.4-10.2); Carbon Dioxide 30 mmol/L (22-30); Chloride 95 mmol/L (98-107); Estimated CRCL calculation 9 ml/min; Estimated Glomerular Filt Rate 10; Glucose 129 mg/dL (65-110); Sodium 133 mmol/L (137-145)
[2021-08-17] MEDS: polyethylene glycoL 3350 17 GM POWD.PACK PO (08:42)
[2021-08-17] MEDS: SOLOSITE WOUND GEL 85 GM TUBE 1 APPLIC TOPICAL (08:42)
[2021-08-17] MEDS: carvediloL 3.125 MG TABLET PO ×2 (08:42→20:29)
[2021-08-17] MEDS: GENTAMICIN 80MG/SOD CHL 50 ML 80 MG/50 ML BAG 100 MG IVPB (11:08)
--- NOTE | 2021-08-17 11:18 | P.PNNP_ITS ---
Progress Note: A&P Assessment and Plan (1) ESRD (end stage renal disease): Code(s): N18.6 - End stage renal disease Status: Chronic Assessment and Plan: * continue nightly CCPD while hospitalized * follow electrolytes, volume status, and clearance (2) Syncope: Onset Date: ~07/2021 Qualifiers: Syncope type: unspecified Qualified Code(s): R55 - Syncope and collapse Code(s): R55 - Syncope and collapse Status: Acute Assessment and Plan: * work-up/testing noted * Echo and carotid duplex results noted * backing off on BP medications as well * PT/OT as tolerated (3) Abdominal mass: Onset Date: ~08/2021 Code(s): R19.00 - Intra-abdominal and pelvic swelling, mass and lump, unspecified site Status: Acute Assessment and Plan: * incidentally noted on CT scan of abdomen * Surgery evaluation and recommendations noted * GI following - EGD and colonoscopy planned for today (4) Anemia: Code(s): D64.9 - Anemia, unspecified Status: Chronic Assessment and Plan: * PRBC transfusion on 08/13/21 * follow trend of H/H * Epogen 3x/week while hospitalized (5) PVD (peripheral vascular disease): Code(s): I73.9 - Peripheral vascular disease, unspecified Status: Chronic Assessment and Plan: * s/p left 1st and 2nd toe amputation * arterial dopplers results noted * follow-up with Vascular surgery (6) Hypertension: Onset Date: Unknown Code(s): I10 - Essential (primary) hypertension Status: Chronic Assessment and Plan: * reasonable control * BP medication adjustments done due to #2 * follow trend of hemodynamics (7) Diabetes: Code(s): E11.9 - Type 2 diabetes mellitus without complications Status: Chronic Assessment and Plan: * follow accuchecks * on SSI and Lantus Will continue to follow. Subjective Date/time seen: 08/17/21 11:18 Tolerated CCPD overnight without any issues or problems; noted plans for EGD and colonoscopy later today; no other specific complaints voiced; tolerated bowel prep yesterday as well. Exam Narrative: General: WD/WN elderly female in NAD Heart: normal S1 and S2; no rub Lungs: clear to auscultation Abdomen: soft, nontender, nondistended, positive bowel sounds Extremities: no cyanosis or clubbing; no edema Skin: warm and intact Objective Data Vital Signs Vital Signs: Vital Signs Temp Pulse Resp BP Pulse Ox 08/17/21 11:18 36.2 C L 71 18 136/51 L 100 08/17/21 08:00 66 08/17/21 06:00 37.0 C 66 18 157/43 H 100 08/17/21 04:00 65 08/17/21 00:00 64 08/16/21 22:00 36.3 C L 62 18 157/49 H 97 08/16/21 20:49 82 08/16/21 20:00 73 08/16/21 16:00 67 08/16/21 14:01 68 141/57 H 08/16/21 14:00 69 113/71 08/16/21 13:55 68 141/57 H 08/16/21 13:53 37.1 C 65 18 137/42 L 97 Intake/Output Intake/Output: Intake & Output 08/14/21 08/15/21 08/16/21 08/17/21 23:59 23:59 23:59 23:59 Intake Total 6191 727 2494 Output Total 1434 6816 -412 Balance -462 -197 1296 Meds/Results Medications: Active Medications
--- NOTE | 2021-08-17 11:18 | PM.PNNEP ---
Progress Note: A&P Assessment and Plan (1) ESRD (end stage renal disease): Code(s): N18.6 - End stage renal disease Status: Chronic Assessment and Plan: continue nightly CCPD while hospitalized follow electrolytes, volume status, and clearance (2) Syncope: Onset Date: ~07/2021 Qualifiers: Syncope type: unspecified Qualified Code(s): R55 - Syncope and collapse Code(s): R55 - Syncope and collapse Status: Acute Assessment and Plan: work-up/testing noted Echo and carotid duplex results noted backing off on BP medications as well PT/OT as tolerated (3) Abdominal mass: Onset Date: ~08/2021 Code(s): R19.00 - Intra-abdominal and pelvic swelling, mass and lump, unspecified site Status: Acute Assessment and Plan: incidentally noted on CT scan of abdomen Surgery evaluation and recommendations noted GI following - EGD and colonoscopy planned for today (4) Anemia: Code(s): D64.9 - Anemia, unspecified Status: Chronic Assessment and Plan: PRBC transfusion on 08/13/21 follow trend of H/H Epogen 3x/week while hospitalized (5) PVD (peripheral vascular disease): Code(s): I73.9 - Peripheral vascular disease, unspecified Status: Chronic Assessment and Plan: s/p left 1st and 2nd toe amputation arterial dopplers results noted follow-up with Vascular surgery (6) Hypertension: Onset Date: Unknown Code(s): I10 - Essential (primary) hypertension Status: Chronic Assessment and Plan: reasonable control BP medication adjustments done due to #2 follow trend of hemodynamics (7) Diabetes: Code(s): E11.9 - Type 2 diabetes mellitus without complications Status: Chronic Assessment and Plan: follow accuchecks on SSI and Lantus Will continue to follow. Subjective Date/time seen: 08/17/21 11:18 Tolerated CCPD overnight without any issues or problems; noted plans for EGD and colonoscopy later today; no other specific complaints voiced; tolerated bowel prep yesterday as well. Exam Narrative: General: WD/WN elderly female in NAD Heart: normal S1 and S2; no rub Lungs: clear to auscultation Abdomen: soft, nontender, nondistended, positive bowel sounds Extremities: no cyanosis or clubbing; no edema Skin: warm and intact Objective Data Vital Signs Vital Signs: Vital Signs Temp Pulse Resp BP Pulse Ox 08/17/21 11:18 36.2 C L 71 18 136/51 L 100 08/17/21 08:00 66 08/17/21 06:00 37.0 C 66 18 157/43 H 100 08/17/21 04:00 65 08/17/21 00:00 64 08/16/21 22:00 36.3 C L 62 18 157/49 H 97 08/16/21 20:49 82 08/16/21 20:00 73 08/16/21 16:00 67 08/16/21 14:01 68 141/57 H 08/16/21 14:00 69 113/71 08/16/21 13:55 68 141/57 H 08/16/21 13:53 37.1 C 65 18 137/42 L 97 Intake/Output Intake/Output: Intake & Output 08/14/21 08/15/21 08/16/21 08/17/21 23:59 23:59 23:59 23:59 Intake Total 9137 981 2915 Output Total 2501 1759 -158 Balance -999 -854 1298 Meds/Results Medications: Active Medications Generic Name Dose Route Start Last Admin Trade Name Freq PRN Reason Stop Dose Admin Hydrocodone Bitart/Acetaminophen 1 tab 08/12/21 19:01 08/16/21 18:07 Hydrocodone/Acetaminophen (*Crx) 5-325 Mg Tablet PO 1 tab BID PRN Administration Pain (Scale Score 4-6) Aspirin 81 mg 08/12/21 09:00 08/17/21 08:14 Aspirin 81 Mg Enteric Tablet PO Not Given DAILY OSIEL Carvedilol 3.125 mg 08/15/21 21:00 08/17/21 08:42 Carvedilol 3.125 Mg Tablet PO 3.125 mg Q12HR OSIEL Administration Clopidogrel Bisulfate 75 mg 08/12/21 09:00 08/14/21 09:23 Clopidogrel Bisulfate 75 Mg Tablet PO 75 mg DAILY OSIEL Administration Dextrose 12.5 gm 08/11/21 23:42 Dextrose 50% 25 Gm/50 Ml Syringe IV PUSH PRN PRN Hypoglycemia Protoco
[2021-08-17] MEDS: SODIUM CHLORIDE 0.9% IV 500 ML 10 ML IV CONT (11:33)
[2021-08-17] MEDS: AMPICILLIN 2 GM/NS 100 ML 2 GM/100 ML BAG IVPB (11:36)
--- NOTE | 2021-08-17 11:45 | WPDANESEPPF ---
Anes - Initial Pre Proc Eval Procedure: Operation Date: 08/17/21 12:30 Proposed Procedures p Esophagogastroduodenoscopy & Colonoscopy - Kris Brody MD Date/Time: 08/17/21 11:45 Surgeon: Naveen Omalley MD Pre Op Diagnosis: Syncope/Generalized Weakness Patient Data Age: 76 Gender: F Height: 1.68 m Weight: 73.9 kg Last Vital Signs Temp 97.2 F L 08/17/21 11:18 Pulse 71 08/17/21 11:18 Resp 18 08/17/21 11:18 BP 136/51 L 08/17/21 11:18 Pulse Ox 100 08/17/21 11:18 Allergies Allergy/AdvReac Type Severity Reaction Status Date / Time Sulfa (Sulfonamide Allergy Mild RASH Verified 08/11/21 10:28 Antibiotics) Home Medications Medication Instructions Recorded Confirmed Type aspirin 81 mg tablet,delayed 81 mg PO DAILY 02/21/19 08/11/21 History release cholecalciferol (vitamin D3) 50 2,000 unit PO DAILY 02/21/19 08/11/21 History mcg (2,000 unit) tablet multivit with 1 tablet PO DAILY 06/25/19 08/11/21 History whaztdsh-hziu-QC-lutein 8 mg iron-400 mcg-300 mcg tablet omega-3 fatty acids 1,000 mg 500 mg PO DAILY 06/25/19 08/12/21 History capsule carvedilol 12.5 mg tablet 12.5 mg PO Q12H 08/26/19 08/11/21 History guanfacine 1 mg tablet 1 mg PO DAILY 08/26/19 08/11/21 History clopidogrel 75 mg tablet 75 mg PO DAILY #90 tablet 04/26/21 08/11/21 Rx levothyroxine 75 mcg tablet 75 mcg PO DAILY #90 tablet 04/26/21 08/11/21 Rx insulin detemir U-100 100 unit/mL See Rx Instructions SUBCUT QAM #15 06/17/21 08/11/21 Rx (3 mL) subcutaneous pen ml rosuvastatin 40 mg tablet 40 mg PO DAILY #90 tablet 06/21/21 08/11/21 Rx sertraline 50 mg tablet 50 mg PO DAILY #30 tablet 08/01/21 08/11/21 Rx hydrocodone-acetaminophen [Dailey] 1 tablet PO Q4H PRN 08/11/21 08/12/21 History docusate sodium 100 mg PO BID 08/12/21 08/12/21 History ferrous sulfate 325 mg PO DAILY 08/12/21 08/12/21 History furosemide 80 mg PO DAILY 08/12/21 08/12/21 History gabapentin 400 mg PO TID 08/12/21 08/12/21 History isosorbide mononitrate 60 mg PO DAILY 08/12/21 08/12/21 History polyethylene glycol 3350 [Miralax] 17 g PO DAILY 08/12/21 08/12/21 History blood sugar diagnostic #100 ea 08/15/21 Rx Laboratory Tests 08/16/21 08/16/21 08/16/21 11:39 16:40 20:36 Sodium Potassium Chloride Carbon Dioxide Anion Gap BUN Creatinine Estim Creat Clear Calc Estimated GFR Glucose POC Capillary Glucose 141 mg/dl H mg/dl 133 mg/dl H mg/dl 117 mg/dl H mg/dl (65-105) (65-105) (65-105) Calcium 08/17/21 08/17/21 07:36 07:44 Sodium 133 mmol/L L mmol/L (137-145) Potassium 4.0 mmol/L mmol/L (3.4-5.0) Chloride 95 mmol/L L mmol/L (98-107) Carbon Dioxide 30 mmol/L mmol/L (22-30) Anion Gap 8 mmol/L mmol/L (8-16) BUN 27 mg/dL H mg/dL (7-17) Creatinine 4.30 mg/dL H mg/dL (0.7-1.0) Estim Creat Clear Calc 9 ml/min ml/min Estimated GFR 10 L (59 - ) Glucose 129 mg/dL H mg/dL (65-110) POC Capillary Glucose 137 mg/dl H mg/dl (65-105) Calcium 8.1 mg/dL L mg/dL (8.4-10.2) Patient hx anesthesia problems: none Family hx anesthesia problems: none Results Review: All pre-operative results and documents have been reviewed as part of the pre-operative evaluation. [facility] Past Medical History Medical History Acute non-ST elevation myocardial infarction (NSTEMI) Anemia in chronic kidney disease, on chronic dialysis Atherosclerotic heart disease Bilateral carotid artery stenosis 70% stenosis bilateral carotids December 2018 CHF (congestive heart failure) Echocardiogram April 2020: EF 60 65%, grade 1 diastolic dysfunction, moderately increased left ventricular wall thickness, basal inferior wall, mid inferior wall are hypokinetic, moderate left
--- NOTE | 2021-08-17 12:18 | PM.IMPN ---
Progress Note: A&P Assessment and Plan (1) Peripheral vascular disease: Onset Date: Unknown Code(s): I73.9 - Peripheral vascular disease, unspecified Status: Acute Assessment and Plan: Status post left 1st and 2nd toe amputation proximally 2 weeks ago. No evidence of infection on exam today. Wound nurse consulted. (2) Insulin dependent type 2 diabetes mellitus: Onset Date: Unknown Code(s): E11.9 - Type 2 diabetes mellitus without complications; Z79.4 - longterm (current) use of insulin Status: Acute Assessment and Plan: Continue basal insulin. Initiate sliding scale insulin, Accu-Cheks, and hypoglycemic protocol. Check hemoglobin A1c. (3) End-stage renal disease on peritoneal dialysis: Code(s): N18.6 - End stage renal disease; Z99.2 - Dependence on renal dialysis Status: Acute Assessment and Plan: Nephrology consulted for dialysis. (4) Syncope: Onset Date: ~07/2021 Qualifiers: Syncope type: unspecified Qualified Code(s): R55 - Syncope and collapse Code(s): R55 - Syncope and collapse Status: Acute Assessment and Plan: Patient has apparently had 4 episodes of syncope or near syncope in the last 1.5 weeks. Ongoing orthostatic hypotension (5) Depression: Code(s): F32.A - Depression, unspecified Status: Acute (6) Hypertension: Onset Date: Unknown Code(s): I10 - Essential (primary) hypertension Status: Chronic (7) Thyroid nodule: Code(s): E04.1 - Nontoxic single thyroid nodule Status: Acute (8) Hyperlipidemia: Qualifiers: Hyperlipidemia type: unspecified Qualified Code(s): E78.5 - Hyperlipidemia, unspecified Code(s): E78.5 - Hyperlipidemia, unspecified Status: Acute (9) Hypothyroidism: Qualifiers: Hypothyroidism type: unspecified Qualified Code(s): E03.9 - Hypothyroidism, unspecified Code(s): E03.9 - Hypothyroidism, unspecified Status: Acute Assessment and Plan: Continue levothyroxine and check TSH. (10) Abdominal mass: Onset Date: ~08/2021 Code(s): R19.00 - Intra-abdominal and pelvic swelling, mass and lump, unspecified site Status: Acute (11) Diabetic neuropathy associated with diabetes mellitus due to underlying condition: Code(s): E08.40 - Diabetes mellitus due to underlying condition with diabetic neuropathy, unspecified Status: Chronic (12) Anemia: Code(s): D64.9 - Anemia, unspecified Status: Chronic (13) Anemia in chronic kidney disease, on chronic dialysis: Code(s): N18.6 - End stage renal disease; D63.1 - Anemia in chronic kidney disease; Z99.2 - Dependence on renal dialysis Status: Inactive (14) Acute on chronic anemia: Code(s): D64.9 - Anemia, unspecified Status: Acute Additional Plan 08/11/21 Patient has apparently had 4 episodes of syncope or near syncope in the last 1.5 weeks. I suspect she may have orthostatic hypotension and with reports of ?always being dizzy? she probably has autonomic dysfunction. She will be monitor on telemetry however to rule out cardiac dysrhythmia. She has chronic carotid artery disease thus no need to repeat ultrasounds. Nephrology consulted for dialysis. Chest x-ray showed free intraperitoneal gas below the right hemidiaphragm though her abdominal exam is completely benign. Will alert nephrology, patient may need technique reviewed. Blood pressures were reviewed and they are stable. I do however suspect that she probably has orthostatic hypotension thus will monitor orthostatic vital signs. Her antihypertensives will be reviewed and resumed as appropriate. Continue levothyroxine and check TSH. Continue basal insulin. Initiate sliding scale insulin, Accu-Cheks, and hypoglycemic protocol. Check hemoglobin A1c. 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 No evidence of infect
[2021-08-17 12:29] LABS: Glucose Point of Care 98 mg/dl (65-105)
[2021-08-17] MEDS: SIMETHICONE ORAL SUSPENSION 20 MG/0.3 ML 30 ML BOTTLE 0.6 ML PO (12:50)
--- NOTE | 2021-08-17 13:10 | SUR.OPER ---
EGD start 1234 end 1238, Colonoscopy start 1244 end 1305.
[2021-08-17 13:29] LABS: Glucose Point of Care 111 mg/dl (65-105)
--- NOTE | 2021-08-17 13:53 | SUR.PHASEII ---
BP stable. patient on room air. Ok to transfer to floor per Dr. Lares.
--- NOTE | 2021-08-17 14:19 | PCPTNOTE ---
Attempted to see patient for PT at this time, per RN and patient's patient has had dialysis today, and just got back from testing and has not been able to eat yet, and that patient would probably not be able to participate much with therapy.
--- NOTE | 2021-08-17 15:43 | PM.PNGS ---
Progress Note: A&P Assessment and Plan (1) Abdominal mass: Onset Date: ~08/2021 Code(s): R19.00 - Intra-abdominal and pelvic swelling, mass and lump, unspecified site Status: Acute Assessment and Plan: CT found a mass in the small bowel mesentery concerning for a metastatic mass. 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 She has no signs of obstruction from this mass and is able to tolerate a diet. Her bowels are moving. EGD did not reveal any findings of a primary source. Colonoscopy revealed diverticulosis, three colon polyps that were completely excised, and internal hemorrhoids. Biopsies pending. No findings that would account for a primary source. SBFT ordered for tomorrow morning. Could also consider an octreotide scan or outpatient PET scan if still no significant findings. (2) Cholelithiasis NOS: Code(s): K80.20 - Calculus of gallbladder without cholecystitis without obstruction Status: Acute Assessment and Plan: Cholelithiasis noted on CT. No evidence of acute cholecystitis and she is not having any abdominal pain at this time. No indication for urgent surgical intervention. Patient and family are aware that if a cholecystectomy was considered, she would require conversion to hemodialysis and need a tunneled dialysis catheter prior to having surgery. No plans for surgery at this time. Would recommend further work-up of the abdominal mass as mentioned below. (3) Peripheral vascular disease: Onset Date: Unknown Code(s): I73.9 - Peripheral vascular disease, unspecified Status: Acute Assessment and Plan: Okay to resume Plavix from our standpoint. (4) Insulin dependent type 2 diabetes mellitus: Onset Date: Unknown Code(s): E11.9 - Type 2 diabetes mellitus without complications; Z79.4 - retirement (current) use of insulin Status: Acute (5) End-stage renal disease on peritoneal dialysis: Code(s): N18.6 - End stage renal disease; Z99.2 - Dependence on renal dialysis Status: Acute Assessment and Plan: Nephrology following her peritoneal dialysis. (6) Syncope: Onset Date: ~07/2021 Qualifiers: Syncope type: unspecified Qualified Code(s): R55 - Syncope and collapse Code(s): R55 - Syncope and collapse Status: Acute Assessment and Plan: Main reason for her admission. Management per Hospitalist. (7) Hypertension: Onset Date: Unknown Code(s): I10 - Essential (primary) hypertension Status: Chronic (8) History of coronary artery stent placement: Code(s): Z95.5 - Presence of coronary angioplasty implant and graft Status: Acute Additional Plan I have discussed the patient's case and plan of care with Dr. Geiger. Subjective Subjective Date/Time Seen: 08/17/21 15:30 Patient reports: no new complaints, tolerating a regular diet, flatus and bowel movement (with prep prior to colonoscopy) Interval history: Patient seen and examined with her at the bedside. She is eating dinner. She reports feeling a little out of it from the procedures today, but otherwise no new complaints. No abdominal pain or nausea. Exam Const: General: no acute distress and awake Orientation/consciousness: patient oriented x3 GI: Inspection: non-distended GI Palp: Yes Soft to palpation, No Tenderness to palpation present (GI), No Guarding due to palpation present (GI) and No Rebound tenderness present Auscultation: normal bowel sounds Other: peritoneal dialysis catheter present on the left side of the abdomen. Neuro: General: moves all extremities and no focal motor deficits Psych: Insight: Good insight present (Psych) Judgement: Good judgement present (Psych) Objective Data Vital Signs Vital Signs: Vital Signs - 24 hr 08/16/21 16:00 08/16/21 20:00 08/16/21 20:49 Temperature Pulse Rate 67 73 82 Respiratory
[2021-08-17] MEDS: GABAPENTIN 400 MG CAPSULE PO (16:36)
[2021-08-17] MEDS: SEVELAMER CARBONATE 800 MG TABLET 3200 MG PO (16:36)
--- NOTE | 2021-08-17 16:42 | PCOTNOTE ---
Attempted to see pt. for occupational therapy treatment this afternoon. Pt. reported she was still feeling out of it from procedure and would like to hold off and wait until she had eaten and felt better.
[2021-08-17 17:03] LABS: Glucose Point of Care 134 mg/dl (65-105)
[2021-08-17] MEDS: INSULIN GLARGINE (*BKC) 100 UNITS/ML 14 UNITS SUB-Q (18:36)
[2021-08-17 22:04] LABS: Glucose Point of Care 173 mg/dl (65-105)
[2021-08-18] VITALS (12 sets, daily range): BP systolic 91–121; BP diastolic 43–51; PULSE 86–95; RESP 16–20; TEMP 36.2–37; O2SAT 96–98
[2021-08-18] MEDS: LEVOTHYROXINE SODIUM 75 MCG TABLET PO (05:46)
[2021-08-18 07:26] LABS: Glucose Point of Care 158 mg/dl (65-105)
--- NOTE | 2021-08-18 10:06 | PCPTNOTE ---
Attempted to see patient for PT at this time, however unable due to patient out of room.
--- NOTE | 2021-08-18 10:18 | PCOTNOTE ---
Attempted OT treatment, patient is currently off the unit for test, will follow.
[2021-08-18] MEDS: POTASSIUM CHLORIDE 20 MEQ TABLET.ER PO (10:41)
[2021-08-18] MEDS: guanFACINE HCL 1 MG TABLET PO (10:41)
[2021-08-18] MEDS: CHOLECALCIFEROL 1,000 UNITS TABLET 2000 UNITS PO (10:41)
[2021-08-18] MEDS: ASPIRIN 81 MG ENTERIC TABLET PO (10:42)
[2021-08-18] MEDS: ROSUVASTATIN 10 MG TABLET 40 MG PO (10:42)
[2021-08-18] MEDS: carvediloL 3.125 MG TABLET PO (10:43)
[2021-08-18] MEDS: FERROUS SULFATE 324 MG TABLET PO (10:44)
[2021-08-18] MEDS: ISOSORBIDE MONONITRATE 60 MG TAB.ER.24H PO (10:44)
[2021-08-18] MEDS: OMEGA 3 POLYUNSAT FATTY ACIDS 1 GM CAP PO (10:44)
[2021-08-18] MEDS: THERAPEUTIC MULTIVITAMINS/MINERALS TAB (*BKC) 1 TABLET PO (10:44)
[2021-08-18] MEDS: SERTRALINE HCL 50 MG TABLET PO (10:46)
[2021-08-18] MEDS: SOLOSITE WOUND GEL 85 GM TUBE 1 APPLIC TOPICAL (10:47)
[2021-08-18] MEDS: DOCUSATE SODIUM 100 MG CAPSULE PO (10:50)
[2021-08-18 11:32] LABS: Glucose Point of Care 161 mg/dl (65-105)
[2021-08-18] MEDS: SEVELAMER CARBONATE 800 MG TABLET 3200 MG PO ×2 (12:48→17:42)
[2021-08-18] MEDS: ONDANSETRON INJ 4 MG/2 ML VIAL IV PUSH (13:03)
--- NOTE | 2021-08-18 13:52 | PCNWS ---
Weekly nutritional screen. Patient is tolerating regular diet with adequate intake. No weight loss reported. No nutritional needs at this time.
--- NOTE | 2021-08-18 14:16 | P.PNNP_ITS ---
Progress Note: A&P Assessment and Plan (1) ESRD (end stage renal disease): Code(s): N18.6 - End stage renal disease Status: Chronic Assessment and Plan: * continue nightly CCPD while hospitalized * follow electrolytes, volume status, and clearance (2) Syncope: Onset Date: ~07/2021 Qualifiers: Syncope type: unspecified Qualified Code(s): R55 - Syncope and collapse Code(s): R55 - Syncope and collapse Status: Acute Assessment and Plan: * work-up/testing noted * Echo and carotid duplex results noted * backing off on BP medications as well * PT/OT as tolerated (3) Abdominal mass: Onset Date: ~08/2021 Code(s): R19.00 - Intra-abdominal and pelvic swelling, mass and lump, unspecified site Status: Acute Assessment and Plan: * incidentally noted on CT scan of abdomen * Surgery evaluation and recommendations noted * GI following - s/p EGD and colonoscopy * small bowel study results noted * next step?? (4) Anemia: Code(s): D64.9 - Anemia, unspecified Status: Chronic Assessment and Plan: * PRBC transfusion on 08/13/21 * follow trend of H/H * Epogen 3x/week while hospitalized (5) PVD (peripheral vascular disease): Code(s): I73.9 - Peripheral vascular disease, unspecified Status: Chronic Assessment and Plan: * s/p left 1st and 2nd toe amputation * arterial dopplers results noted * follow-up with Vascular surgery (6) Hypertension: Code(s): I10 - Essential (primary) hypertension Status: Chronic Assessment and Plan: * reasonable control * BP medication adjustments done due to #2 * follow trend of hemodynamics (7) Diabetes: Code(s): E11.9 - Type 2 diabetes mellitus without complications Status: Chronic Assessment and Plan: * follow accuchecks * on SSI and Lantus Will continue to follow. Subjective Date/time seen: 08/18/21 14:16 Tolerated EGD and colonoscopy reasonably well yesterday; tolerated CCPD treatment overnight as well; no apparent distress voiced at this time or overnight; small bowel study done earlier this AM with results noted as well. Exam Narrative: General: WD/WN elderly female in NAD Heart: normal S1 and S2; no rub Lungs: clear to auscultation Abdomen: soft, nontender, nondistended, positive bowel sounds Extremities: no cyanosis or clubbing; no edema Skin: no rash Objective Data Vital Signs Vital Signs: Vital Signs Temp Pulse Resp BP Pulse Ox 08/18/21 06:00 36.7 C 89 18 121/51 L 98 08/18/21 04:00 87 08/18/21 00:00 86 08/17/21 22:00 36.6 C 82 18 130/48 L 97 08/17/21 21:48 96 08/17/21 20:29 82 08/17/21 20:00 82 08/17/21 16:00 78 Intake/Output Intake/Output: Intake & Output 08/15/21 08/16/21 08/17/21 08/18/21 23:59 23:59 23:59 23:59 Intake Total 902 1140 710 420 Output Total 1759 -158 Balance -857 1298 710 420 Meds/Results Medications: Active Medications Generic Name Dose Route Start Last Admin Trade Name Freq PRN Reason Stop Dose Admin Hydrocodone Bitart/Acetaminophen 1 tab 08/12/21 19:01 08/16/21 18:07 Hydrocodone/
--- NOTE | 2021-08-18 14:16 | PM.PNNEP ---
Progress Note: A&P Assessment and Plan (1) ESRD (end stage renal disease): Code(s): N18.6 - End stage renal disease Status: Chronic Assessment and Plan: continue nightly CCPD while hospitalized follow electrolytes, volume status, and clearance (2) Syncope: Onset Date: ~07/2021 Qualifiers: Syncope type: unspecified Qualified Code(s): R55 - Syncope and collapse Code(s): R55 - Syncope and collapse Status: Acute Assessment and Plan: work-up/testing noted Echo and carotid duplex results noted backing off on BP medications as well PT/OT as tolerated (3) Abdominal mass: Onset Date: ~08/2021 Code(s): R19.00 - Intra-abdominal and pelvic swelling, mass and lump, unspecified site Status: Acute Assessment and Plan: incidentally noted on CT scan of abdomen Surgery evaluation and recommendations noted GI following - s/p EGD and colonoscopy small bowel study results noted next step?? (4) Anemia: Code(s): D64.9 - Anemia, unspecified Status: Chronic Assessment and Plan: PRBC transfusion on 08/13/21 follow trend of H/H Epogen 3x/week while hospitalized (5) PVD (peripheral vascular disease): Code(s): I73.9 - Peripheral vascular disease, unspecified Status: Chronic Assessment and Plan: s/p left 1st and 2nd toe amputation arterial dopplers results noted follow-up with Vascular surgery (6) Hypertension: Code(s): I10 - Essential (primary) hypertension Status: Chronic Assessment and Plan: reasonable control BP medication adjustments done due to #2 follow trend of hemodynamics (7) Diabetes: Code(s): E11.9 - Type 2 diabetes mellitus without complications Status: Chronic Assessment and Plan: follow accuchecks on SSI and Lantus Will continue to follow. Subjective Date/time seen: 08/18/21 14:16 Tolerated EGD and colonoscopy reasonably well yesterday; tolerated CCPD treatment overnight as well; no apparent distress voiced at this time or overnight; small bowel study done earlier this AM with results noted as well. Exam Narrative: General: WD/WN elderly female in NAD Heart: normal S1 and S2; no rub Lungs: clear to auscultation Abdomen: soft, nontender, nondistended, positive bowel sounds Extremities: no cyanosis or clubbing; no edema Skin: no rash Objective Data Vital Signs Vital Signs: Vital Signs Temp Pulse Resp BP Pulse Ox 08/18/21 06:00 36.7 C 89 18 121/51 L 98 08/18/21 04:00 87 08/18/21 00:00 86 08/17/21 22:00 36.6 C 82 18 130/48 L 97 08/17/21 21:48 96 08/17/21 20:29 82 08/17/21 20:00 82 08/17/21 16:00 78 Intake/Output Intake/Output: Intake & Output 08/15/21 08/16/21 08/17/21 08/18/21 23:59 23:59 23:59 23:59 Intake Total 902 1140 710 420 Output Total 1759 -158 Balance -857 1298 710 420 Meds/Results Medications: Active Medications Generic Name Dose Route Start Last Admin Trade Name Freq PRN Reason Stop Dose Admin Hydrocodone Bitart/Acetaminophen 1 tab 08/12/21 19:01 08/16/21 18:07 Hydrocodone/Acetaminophen (*Crx) 5-325 Mg Tablet PO 1 tab BID PRN Administration Pain (Scale Score 4-6) Aspirin 81 mg 08/12/21 09:00 08/18/21 10:42 Aspirin 81 Mg Enteric Tablet PO 81 mg DAILY OSIEL Administration Carvedilol 3.125 mg 08/15/21 21:00 08/18/21 10:43 Carvedilol 3.125 Mg Tablet PO 3.125 mg Q12HR OSIEL Administration Clopidogrel Bisulfate 75 mg 08/12/21 09:00 08/14/21 09:23 Clopidogrel Bisulfate 75 Mg Tablet PO 75 mg DAILY OSIEL Administration Dextrose 12.5 gm 08/11/21 23:42 Dextrose 50% 25 Gm/50 Ml Syringe IV PUSH PRN PRN Hypoglycemia Protocol Docusate Sodium 100 mg 08/16/21 21:00 08/18/21 10:50 Docusate Sodium 100 Mg Capsule PO 100 mg Q12HR OSIEL Administration Epoetin Salvador
--- NOTE | 2021-08-18 14:58 | WPDGIPROGNO ---
Progress Note: A&P Assessment and Plan (1) Mesenteric mass: Code(s): K63.89 - Other specified diseases of intestine Status: Acute Assessment and Plan: Mesenteric mass suspicious for carcinoid tumor. Small-bowel follow-through performed today suggests terminal ileal stricture. This was unable to be assessed by colonoscopy. May need surgical exploration and resection. Alternative would be to initially perform and octreotide scan. However this may still for fail to get histologic diagnosis. Await surgical opinion. (2) Anemia: Code(s): D64.9 - Anemia, unspecified Status: Chronic Assessment and Plan: Patient with anemia. Likely related to chronic disease she does have chronic kidney disease on dialysis. Cannot exclude some component GI blood loss. 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 Clinically she is asymptomatic. Potentially this could be associated with mesenteric mass identified. (6) Colon polyps: Code(s): K63.5 - Polyp of colon Status: Acute Assessment and Plan: Colon polyps identified at time of colonoscopy histology pending. Uncertain if this is related to the mesenteric mass. Await final histology report. Subjective Date/time seen: 08/18/21 14:58 Patient alert comfortable today. Apparently has tolerated diet. Denies any cramping. Review of Systems Review of Systems: All systems reviewed & are unremarkable except as noted in HPI and below Exam Narrative: Physical exam patient is alert. Vital signs stable. HEENT exam reveals no icterus. Lungs are clear. Heart without murmur. Abdomen bowel sounds present soft nontender with no localized masses or tenderness. Objective Data Vital Signs Vital Signs: Vital Signs - 24 hr 08/17/21 16:00 08/17/21 20:00 08/17/21 20:29 Temperature Pulse Rate 78 82 82 Respiratory Rate Blood Pressure Pulse Oximetry 08/17/21 21:48 08/17/21 22:00 08/18/21 00:00 Temperature 97.8 F Pulse Rate 82 86 Respiratory Rate 18 Blood Pressure 130/48 L Pulse Oximetry 96 97 08/18/21 04:00 08/18/21 06:00 Temperature 98.0 F Pulse Rate 87 89 Respiratory Rate 18 Blood Pressure 121/51 L Pulse Oximetry 98 Intake/Output Intake/Output: Intake & Output 08/15/21 08/16/21 08/17/21 08/18/21 23:59 23:59 23:59 23:59 Intake Total 902 1140 710 420 Output Total 1759 -158 Balance -857 1298 710 420 Meds/Results Medications: Active Medications Generic Name Dose Route Start Last Admin Trade Name Freq PRN Reason Stop Dose Admin Hydrocodone Bitart/Acetaminophen 1 tab 08/12/21 19:01 08/16/21 18:07 Hydrocodone/Acetaminophen (*Crx) 5-325 Mg Tablet PO 1 tab BID PRN Administration Pain (Scale Score 4-6) Aspirin 81 mg 08/12/21 09:00 08/18/21 10:42 Aspirin 81 Mg Enteric Tablet PO 81 mg DAILY OSIEL Administration Carvedilol 3.125 mg 08/15/21 21:00 08/18/21 10:43 Carvedilol 3.125 Mg Tablet PO 3.125 mg Q12HR OSIEL Administration Clopidogrel Bisulfate 75 mg 08/12/21 09:00 08/14/21 09:23 Clopidogrel Bisulfate 75 Mg Tablet PO 75 mg DAILY OSIEL Administration Dextrose 12.5 gm 08/11/21 23:42 Dextrose 50% 25 Gm/50 Ml Syringe IV PUSH PRN PRN Hypoglycemia Protocol Docusate Sodium 100 mg 08/16/21 21:00 08/18/21 10:50 Docusate Sodium 100 Mg Capsule PO 1
--- NOTE | 2021-08-18 15:15 | PCPTNOTE ---
The patient treatment was not able to be completed on 08/18/2021 due to patient reporting dizziness and blood pressure 95/44 supine, nursing notified. Will plan to continue treatment per plan of care.
[2021-08-18 16:53] LABS: Glucose Point of Care 172 mg/dl (65-105)
[2021-08-18] MEDS: GABAPENTIN 400 MG CAPSULE PO (17:42)
--- NOTE | 2021-08-18 17:43 | PM.IMPN ---
Progress Note: A&P Assessment and Plan (1) Peripheral vascular disease: Onset Date: Unknown Code(s): I73.9 - Peripheral vascular disease, unspecified Status: Acute Assessment and Plan: Status post left 1st and 2nd toe amputation proximally 2 weeks ago. No evidence of infection on exam today. Wound nurse consulted. (2) Insulin dependent type 2 diabetes mellitus: Onset Date: Unknown Code(s): E11.9 - Type 2 diabetes mellitus without complications; Z79.4 - senior care (current) use of insulin Status: Acute Assessment and Plan: Continue basal insulin. Initiate sliding scale insulin, Accu-Cheks, and hypoglycemic protocol. A1c 7.4 (3) End-stage renal disease on peritoneal dialysis: Code(s): N18.6 - End stage renal disease; Z99.2 - Dependence on renal dialysis Status: Acute Assessment and Plan: Nephrology consulted for dialysis. (4) Syncope: Onset Date: ~07/2021 Qualifiers: Syncope type: unspecified Qualified Code(s): R55 - Syncope and collapse Code(s): R55 - Syncope and collapse Status: Acute Assessment and Plan: Patient has apparently had 4 episodes of syncope or near syncope in the last 1.5 weeks. Ongoing orthostatic hypotension (5) Depression: Code(s): F32.A - Depression, unspecified Status: Acute (6) Hypertension: Code(s): I10 - Essential (primary) hypertension Status: Chronic (7) Thyroid nodule: Code(s): E04.1 - Nontoxic single thyroid nodule Status: Acute (8) Hyperlipidemia: Qualifiers: Hyperlipidemia type: unspecified Qualified Code(s): E78.5 - Hyperlipidemia, unspecified Code(s): E78.5 - Hyperlipidemia, unspecified Status: Acute (9) Hypothyroidism: Qualifiers: Hypothyroidism type: unspecified Qualified Code(s): E03.9 - Hypothyroidism, unspecified Code(s): E03.9 - Hypothyroidism, unspecified Status: Acute Assessment and Plan: Continue levothyroxine, TSH within normal limits (10) Abdominal mass: Onset Date: ~08/2021 Code(s): R19.00 - Intra-abdominal and pelvic swelling, mass and lump, unspecified site Status: Acute Assessment and Plan: Small-bowel follow-through showed ileal stricture, concern for metastatic disease, awaiting General surgery recommendations (11) Diabetic neuropathy associated with diabetes mellitus due to underlying condition: Code(s): E08.40 - Diabetes mellitus due to underlying condition with diabetic neuropathy, unspecified Status: Chronic (12) Anemia: Code(s): D64.9 - Anemia, unspecified Status: Chronic (13) Anemia in chronic kidney disease, on chronic dialysis: Code(s): N18.6 - End stage renal disease; D63.1 - Anemia in chronic kidney disease; Z99.2 - Dependence on renal dialysis Status: Inactive Assessment and Plan: Appreciate nephrology consultation (14) Acute on chronic anemia: Code(s): D64.9 - Anemia, unspecified Status: Acute Additional Plan 08/11/21 Patient has apparently had 4 episodes of syncope or near syncope in the last 1.5 weeks. I suspect she may have orthostatic hypotension and with reports of ?always being dizzy? she probably has autonomic dysfunction. She will be monitor on telemetry however to rule out cardiac dysrhythmia. She has chronic carotid artery disease thus no need to repeat ultrasounds. Nephrology consulted for dialysis. Chest x-ray showed free intraperitoneal gas below the right hemidiaphragm though her abdominal exam is completely benign. Will alert nephrology, patient may need technique reviewed. Blood pressures were reviewed and they are stable. I do however suspect that she probably has orthostatic hypotension thus will monitor orthostatic vital signs. Her antihypertensives will be reviewed and resumed as appropriate. Continue levothyroxine and check TSH. Continue basal ins
[2021-08-18] MEDS: INSULIN GLARGINE (*BKC) 100 UNITS/ML 14 UNITS SUB-Q (17:45)
--- NOTE | 2021-08-18 20:03 | PM.PNGS ---
Progress Note: A&P Assessment and Plan (1) Abdominal mass: Onset Date: ~08/2021 Code(s): R19.00 - Intra-abdominal and pelvic swelling, mass and lump, unspecified site Status: Acute Assessment and Plan: CT found a mass in the small bowel mesentery concerning for a metastatic mass. 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 She has no signs of obstruction from this mass and is able to tolerate a diet. Her bowels are moving. EGD did not reveal any findings of a primary source. Colonoscopy revealed diverticulosis, three colon polyps that were completely excised, and internal hemorrhoids. Biopsies pending. No findings that would account for a primary source. SBFT done 08/18/2021 reveals a stricture that is not causing obstruction in the distal ileum. (since this is also the area that has a mesenteric fibrotic 1.7 cm mass it makes it more likely that she perhaps have a to as an abnormality in this portion of the bowel. Could also consider further outpatient workup with an octreotide scan or outpatient PET scan and consultation with a medical oncologist to further define maya abbott be a good plan for further workup. At this time I would recommend discharge if she is okay with the syncope ---- and then medical oncology outpatient consultation. Most likely to then go ahead with an octreotide scan or a PET scan using octreotide. Then if it is still highly likely that the patient has a carcinoid we would use a staged set of surgeries, first doing a tunneled dialysis catheter, then doing laparoscopy with laparoscopic cholecystectomy and laparoscopic identification of the abnormal area of small-bowel with externalization resection with reanastomosis. Most likely this would require then the removal of the peritoneal dialysis catheter for at least a period of time. Since she has a surgeon who put the peritoneal dialysis catheter in it may be a good consideration to have him do the above-listed surgery should it come to that such that she could then return him at the appropriate time for reestablishment of a way of peritoneal dialysis and he would have a good handle on whether that would seem to work. (2) Cholelithiasis NOS: Code(s): K80.20 - Calculus of gallbladder without cholecystitis without obstruction Status: Acute Assessment and Plan: Cholelithiasis noted on CT. No evidence of acute cholecystitis and she is not having any abdominal pain at this time. No indication for urgent surgical intervention. Patient and family are aware that if a cholecystectomy was considered, she would require conversion to hemodialysis and need a tunneled dialysis catheter prior to having surgery. No plans for surgery at this time. Would recommend further work-up of the abdominal mass as mentioned below. (3) Peripheral vascular disease: Onset Date: Unknown Code(s): I73.9 - Peripheral vascular disease, unspecified Status: Acute Assessment and Plan: Okay to resume Plavix from our standpoint. 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 (6) Syncope: Onset Date: ~07/2021 Qualifiers: Syncope type: unspecified Qualified Code(s): R55 - Syncope and collapse Code(s): R55 - Syncope and collapse Status: Acute Assessment and Plan: Main reason for her admission. Management per Hospitalist. (7) Hypertension: Code(s): I10 - Essential (primary) hypertension Status: Chronic (8) History of coronary artery stent placement:
[2021-08-18 20:09] LABS: Glucose Point of Care 204 mg/dl (65-105)
[2021-08-19] VITALS (15 sets, daily range): BP systolic 94–113; BP diastolic 38–49; PULSE 75–94; RESP 16; TEMP 36.4–37.8; O2SAT 94–100
[2021-08-19] MEDS: LEVOTHYROXINE SODIUM 75 MCG TABLET PO (06:03)
[2021-08-19 06:32] LABS: Potassium 3.8 mmol/L (3.4-5.0)
[2021-08-19 08:00] LABS: Albumin Level 2.7 g/dL (3.5-5.1); Anion Gap 11 mmol/L (8-16); Blood Urea Nitrogen 31 mg/dL (7-17); Calcium 8.1 mg/dL (8.4-10.2); Carbon Dioxide 24 mmol/L (22-30); Chloride 98 mmol/L (98-107); Estimated CRCL calculation 7 ml/min; Estimated Glomerular Filt Rate 7; Glucose 189 mg/dL (65-110); Phosphorus 6.1 mg/dL (2.5-4.5); Potassium 3.7 mmol/L (3.4-5.0); Sodium 133 mmol/L (137-145)
[2021-08-19 08:36] LABS: Glucose Point of Care 167 mg/dl (65-105)
[2021-08-19] MEDS: SEVELAMER CARBONATE 800 MG TABLET 3200 MG PO ×3 (08:47→17:55)
[2021-08-19] MEDS: POTASSIUM CHLORIDE 20 MEQ TABLET.ER PO (08:47)
[2021-08-19] MEDS: FERROUS SULFATE 324 MG TABLET PO (08:48)
[2021-08-19] MEDS: carvediloL 3.125 MG TABLET PO (08:48)
[2021-08-19] MEDS: guanFACINE HCL 1 MG TABLET PO (08:48)
[2021-08-19] MEDS: ASPIRIN 81 MG ENTERIC TABLET PO (08:49)
[2021-08-19] MEDS: ISOSORBIDE MONONITRATE 30 MG TAB.ER.24H PO (08:49)
[2021-08-19] MEDS: ROSUVASTATIN 10 MG TABLET 40 MG PO (08:49)
[2021-08-19] MEDS: THERAPEUTIC MULTIVITAMINS/MINERALS TAB (*BKC) 1 TABLET PO (08:49)
[2021-08-19] MEDS: CHOLECALCIFEROL 1,000 UNITS TABLET 2000 UNITS PO (08:49)
[2021-08-19] MEDS: SERTRALINE HCL 50 MG TABLET PO (08:49)
[2021-08-19] MEDS: OMEGA 3 POLYUNSAT FATTY ACIDS 1 GM CAP PO (08:49)
[2021-08-19] MEDS: SOLOSITE WOUND GEL 85 GM TUBE 1 APPLIC TOPICAL (08:50)
[2021-08-19] MEDS: INSULIN GLARGINE (*BKC) 100 UNITS/ML 36 UNITS SUB-Q (08:57)
--- NOTE | 2021-08-19 10:52 | P.PNNP_ITS ---
Progress Note: A&P Assessment and Plan (1) ESRD (end stage renal disease): Code(s): N18.6 - End stage renal disease Status: Chronic Assessment and Plan: * continue nightly CCPD while hospitalized * follow electrolytes, volume status, and clearance (2) Syncope: Onset Date: ~07/2021 Qualifiers: Syncope type: unspecified Qualified Code(s): R55 - Syncope and collapse Code(s): R55 - Syncope and collapse Status: Acute Assessment and Plan: * work-up/testing noted * Echo and carotid duplex results noted * backing off on BP medications as well holding with parameters * PT/OT as tolerated (3) Abdominal mass: Onset Date: ~08/2021 Code(s): R19.00 - Intra-abdominal and pelvic swelling, mass and lump, unspecified site Status: Acute Assessment and Plan: * incidentally noted on CT scan of abdomen * Surgery evaluation and recommendations noted * GI following - s/p EGD and colonoscopy * small bowel study results noted * next step?? (4) Anemia: Code(s): D64.9 - Anemia, unspecified Status: Chronic Assessment and Plan: * PRBC transfusion on 08/13/21 * follow trend of H/H * Epogen 3x/week while hospitalized (5) PVD (peripheral vascular disease): Code(s): I73.9 - Peripheral vascular disease, unspecified Status: Chronic Assessment and Plan: * s/p left 1st and 2nd toe amputation * arterial dopplers results noted * follow-up with Vascular surgery (6) Hypertension: Code(s): I10 - Essential (primary) hypertension Status: Chronic Assessment and Plan: * reasonable control * BP medication adjustments done due to #2 * follow trend of hemodynamics (7) Diabetes: Code(s): E11.9 - Type 2 diabetes mellitus without complications Status: Chronic Assessment and Plan: * follow accuchecks * on SSI and Lantus Will continue to follow. Subjective Date/time seen: 08/19/21 10:52 Tolerated peritoneal dialysis treatment yesterday evening (but absorbed ~ 300 cc); no other acute issues or complaints voiced at this time; states she feels reasonably well; no events overnight or earlier this AM; blood pressure still is a bit on the low side at the time of my visit. Exam Narrative: General: WD/WN elderly female in NAD Heart: normal S1 and S2; no rub Lungs: clear to auscultation Abdomen: soft, nontender, nondistended, positive bowel sounds Extremities: no cyanosis or clubbing; no edema Skin: warm and dry Objective Data Vital Signs Vital Signs: Vital Signs Temp Pulse Resp BP Pulse Ox 08/19/21 08:48 78 08/19/21 08:42 96/49 L 08/19/21 08:00 105/42 L 08/19/21 06:00 36.4 C L 85 16 113/39 L 95 08/19/21 05:15 97 08/19/21 04:00 90 08/19/21 00:00 94 08/18/21 22:00 37.0 C 91 16 91/43 L 98 08/18/21 21:00 90 08/18/21 20:29 37.0 C 91 16 91/43 L 98 08/18/21 20:00 94 08/18/21 16:00 95 08/18/21 15:08 96 08/18/21 14:00 36.2 C L 92 20 96/50 L 98 08/18/21 12:00 92 Intake/Output Intake/Output: Intake & Output 08/16/21 08/17/21 08/18/21 08/19/21 23:59 23:59 23:59 23:59 Intake Total 1140 7
--- NOTE | 2021-08-19 10:52 | PM.PNNEP ---
Progress Note: A&P Assessment and Plan (1) ESRD (end stage renal disease): Code(s): N18.6 - End stage renal disease Status: Chronic Assessment and Plan: continue nightly CCPD while hospitalized follow electrolytes, volume status, and clearance (2) Syncope: Onset Date: ~07/2021 Qualifiers: Syncope type: unspecified Qualified Code(s): R55 - Syncope and collapse Code(s): R55 - Syncope and collapse Status: Acute Assessment and Plan: work-up/testing noted Echo and carotid duplex results noted backing off on BP medications as well holding with parameters PT/OT as tolerated (3) Abdominal mass: Onset Date: ~08/2021 Code(s): R19.00 - Intra-abdominal and pelvic swelling, mass and lump, unspecified site Status: Acute Assessment and Plan: incidentally noted on CT scan of abdomen Surgery evaluation and recommendations noted GI following - s/p EGD and colonoscopy small bowel study results noted next step?? (4) Anemia: Code(s): D64.9 - Anemia, unspecified Status: Chronic Assessment and Plan: PRBC transfusion on 08/13/21 follow trend of H/H Epogen 3x/week while hospitalized (5) PVD (peripheral vascular disease): Code(s): I73.9 - Peripheral vascular disease, unspecified Status: Chronic Assessment and Plan: s/p left 1st and 2nd toe amputation arterial dopplers results noted follow-up with Vascular surgery (6) Hypertension: Code(s): I10 - Essential (primary) hypertension Status: Chronic Assessment and Plan: reasonable control BP medication adjustments done due to #2 follow trend of hemodynamics (7) Diabetes: Code(s): E11.9 - Type 2 diabetes mellitus without complications Status: Chronic Assessment and Plan: follow accuchecks on SSI and Lantus Will continue to follow. Subjective Date/time seen: 08/19/21 10:52 Tolerated peritoneal dialysis treatment yesterday evening (but absorbed ~ 300cc); no other acute issues or complaints voiced at this time; states she feels reasonably well; no events overnight or earlier this AM; blood pressure still is a bit on the low side at the time of my visit. Exam Narrative: General: WD/WN elderly female in NAD Heart: normal S1 and S2; no rub Lungs: clear to auscultation Abdomen: soft, nontender, nondistended, positive bowel sounds Extremities: no cyanosis or clubbing; no edema Skin: warm and dry Objective Data Vital Signs Vital Signs: Vital Signs Temp Pulse Resp BP Pulse Ox 08/19/21 08:48 78 08/19/21 08:42 96/49 L 08/19/21 08:00 105/42 L 08/19/21 06:00 36.4 C L 85 16 113/39 L 95 08/19/21 05:15 97 08/19/21 04:00 90 08/19/21 00:00 94 08/18/21 22:00 37.0 C 91 16 91/43 L 98 08/18/21 21:00 90 08/18/21 20:29 37.0 C 91 16 91/43 L 98 08/18/21 20:00 94 08/18/21 16:00 95 08/18/21 15:08 96 08/18/21 14:00 36.2 C L 92 20 96/50 L 98 08/18/21 12:00 92 Intake/Output Intake/Output: Intake & Output 08/16/21 08/17/21 08/18/21 08/19/21 23:59 23:59 23:59 23:59 Intake Total 1140 710 760 120 Output Total -158 Balance 1298 710 760 120 Meds/Results Medications: Active Medications Generic Name Dose Route Start Last Admin Trade Name Freq PRN Reason Stop Dose Admin Hydrocodone Bitart/Acetaminophen 1 tab 08/12/21 19:01 08/16/21 18:07 Hydrocodone/Acetaminophen (*Crx) 5-325 Mg Tablet PO 1 tab BID PRN Administration Pain (Scale Score 4-6) Aspirin 81 mg 08/12/21 09:00 08/19/21 08:49 Aspirin 81 Mg Enteric Tablet PO 81 mg DAILY OSIEL Administration Carvedilol 3.125 mg 08/15/21 21:00 08/19/21 08:48 Carvedilol 3.125 Mg Tablet PO 3.125 mg Q12HR OSIEL Administration Clopidogrel Bisulfate 75 mg 08/12/21 09:00 08/14/21 09:23 Clopidogrel Bisulfate 75 Mg Tabl
[2021-08-19 11:43] LABS: Toxigenic C. Diff NEGATIVE (NEGATIVE)
[2021-08-19 11:46] LABS: Glucose Point of Care 203 mg/dl (65-105)
[2021-08-19] MEDS: EPOETIN ALFA-EPBX 20,000 UNITS/ML VIAL 20000 UNITS SUB-Q (12:12)
[2021-08-19] MEDS: INSULIN ASPART (*BKC) 100 UNITS/ML SUB-Q (12:13)
--- NOTE | 2021-08-19 12:50 | WPDGIPROGNO ---
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 I think this will require surgical therapy. If local surgeons are unable to do this I would request they refer to the appropriate surgical service for consideration. 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 octreotide scan may be of some benefit to search for additional disease and should be ordered if at all possible. Hematology opinion is apparently pending. (2) Mesenteric mass: Code(s): K63.89 - Other specified diseases of intestine Status: Acute Assessment and Plan: Possible carcinoid tumor surgical service for resection is on the case may need referral to a tertiary care center. (3) Colon polyps: Code(s): K63.5 - Polyp of colon Status: Acute Assessment and Plan: Colon polyps removed at time of colonoscopy histology Reveals benign tubular adenoma and sessile serrated polyp. One of these had high-grade dysplasia. For this reason follow-up colonoscopy is advised in 1-2 years. (4) Cholelithiasis NOS: Code(s): K80.20 - Calculus of gallbladder without cholecystitis without obstruction Status: Acute (5) End-stage renal disease on peritoneal dialysis: Code(s): N18.6 - End stage renal disease; Z99.2 - Dependence on renal dialysis Status: Acute Subjective Date/time seen: 08/19/21 12:50 Patient alert comfortable and tolerating diet currently with no problems. Patient and report that she has intermittent low blood pressure becomes lightheaded. Apparently is nearly passed out several times in the past at home. Review of Systems Review of Systems: All systems reviewed & are unremarkable except as noted in HPI and below Exam Narrative: Physical exam reveals patient to be alert. Vital signs stable. HEENT exam unremarkable. Patient anicteric. Lungs are clear. Heart without murmur. Abdomen bowel sounds present soft nontender with no organomegaly. Peritoneal dialysis catheter in place. Objective Data Vital Signs Vital Signs: Vital Signs - 24 hr 08/18/21 14:00 08/18/21 15:08 08/18/21 16:00 Temperature 97.1 F L Pulse Rate 92 95 Respiratory Rate 20 Blood Pressure 96/50 L Pulse Oximetry 98 96 08/18/21 20:00 08/18/21 20:29 08/18/21 21:00 Temperature 98.6 F Pulse Rate 94 91 90 Respiratory Rate 16 Blood Pressure 91/43 L Pulse Oximetry 98 08/18/21 22:00 08/19/21 00:00 08/19/21 04:00 Temperature 98.6 F Pulse Rate 91 94 90 Respiratory Rate 16 Blood Pressure 91/43 L Pulse Oximetry 98 08/19/21 05:15 08/19/21 06:00 08/19/21 08:00 Temperature 97.5 F L Pulse Rate 85 90 Respiratory Rate 16 Blood Pressure 113/39 L 105/42 L Pulse Oximetry 97 95 08/19/21 08:42 08/19/21 08:48 08/19/21 09:00 Temperature Pulse Rate 78 80 Respiratory Rate Blood Pressure 96/49 L 101/40 L Pulse Oximetry Intake/Output Intake/Output: Intake & Output 08/16/21 08/17/21 08/18/21 08/19/21 23:59 23:59 23:59 23:59 Intake Total 1140 710 760 620 Output Total -158 Balance 1298 710 760 620 Meds/Results Medications: Active Medications Generic Name Dose Route Start Last Admin Trade Name Freq PRN Reason Stop Dose Admin Hydrocodone Bitart/Acetaminophen 1 tab 08/12/21 19:01 08/16/21 18:07 Hydrocodone/Acetaminophen (*Crx) 5-325 Mg Tablet PO 1 tab BID PRN Administration Pain (Scale Score 4-6) Aspirin 81 mg 08/12/21 09:00 08/19/21 08:49 Aspirin 81 Mg Enteric Tablet PO 81 mg DAILY OSIEL Administration Carvedilol 3.125 mg 08/15/21 21:00 08/19/21 08:48 Carvedilol 3.125 Mg Tablet PO 3.125 mg Q12HR OSIEL Administration Clopidogrel Bisulfate 75 mg
--- NOTE | 2021-08-19 14:38 | PM.IMPN ---
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 I think this will require surgical therapy. If local surgeons are unable to do this I would request they refer to the appropriate surgical service for consideration. 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 octreotide scan may be of some benefit to search for additional disease and should be ordered if at all possible. (2) Mesenteric mass: Code(s): K63.89 - Other specified diseases of intestine Status: Acute Assessment and Plan: Possible carcinoid tumor surgical service for resection is on the case may need referral to a tertiary care center. (3) Colon polyps: Code(s): K63.5 - Polyp of colon Status: Acute Assessment and Plan: Colon polyps removed at time of colonoscopy histology Reveals benign tubular adenoma and sessile serrated polyp. One of these had high-grade dysplasia. For this reason follow-up colonoscopy is advised in 1-2 years. (4) Cholelithiasis NOS: Code(s): K80.20 - Calculus of gallbladder without cholecystitis without obstruction Status: Acute (5) End-stage renal disease on peritoneal dialysis: Code(s): N18.6 - End stage renal disease; Z99.2 - Dependence on renal dialysis Status: Acute Additional Plan 08/11/21 Patient has apparently had 4 episodes of syncope or near syncope in the last 1.5 weeks. I suspect she may have orthostatic hypotension and with reports of ?always being dizzy? she probably has autonomic dysfunction. She will be monitor on telemetry however to rule out cardiac dysrhythmia. She has chronic carotid artery disease thus no need to repeat ultrasounds. Nephrology consulted for dialysis. Chest x-ray showed free intraperitoneal gas below the right hemidiaphragm though her abdominal exam is completely benign. Will alert nephrology, patient may need technique reviewed. Blood pressures were reviewed and they are stable. I do however suspect that she probably has orthostatic hypotension thus will monitor orthostatic vital signs. Her antihypertensives will be reviewed and resumed as appropriate. Continue levothyroxine and check TSH. Continue basal insulin. Initiate sliding scale insulin, Accu-Cheks, and hypoglycemic protocol. Check hemoglobin A1c. 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 No evidence of infection on exam today. Wound nurse consulted. 08/12/21 cont workup x syncope orthostatics PHD tonamanuel, Dr Gee managing rising WBC without source CT abd pelvis ordered CXR reviewed, free air likely associated w PD healing wound on LLE that does not appear to be source of infection on gross examination blood cultures ordered POC reviewed w Dr Gee will empirically cover for skin microbes pending further workup 08/13/21 pt doing ok WBC downtrending on Zosyn Blood cx pending complains of LLE heaviness and difficulty lifting moving ext -> US to r/o DVT of thigh Hgb < 7 on am labs 1UPRBC ordered CT abd/pelvis w spiculated mass c/s Surgery / GI PT/OT wound care 08/14/21 coreg decrease to 6.25mg BID 200cc NS bolus given over 2 hours zofran prn HD per nephro am labs 08/15/21 coreg decreased to 3.125 BID may need to increase back to 6.[address] White cont supportive care ECHO reviewed Carotid US 50-69% surgery following for spiculated mass on CT abdomen c/s GI dc planning 08/16/21 Pt is orthostatic today continue to monitor CT shows mass in the small bowel mesentery concerning for a metastatic mass 08/17/2021 Pt found to have a mass in the small bowel mesentery concerning for a metastatic mass. ? carcinoid tumor. Surgery and GI teams are rounding Pt going down for colonoscopy an
[2021-08-19 16:41] LABS: Glucose Point of Care 150 mg/dl (65-105)
[2021-08-19] MEDS: GABAPENTIN 400 MG CAPSULE PO (17:55)
[2021-08-19] MEDS: INSULIN GLARGINE (*BKC) 100 UNITS/ML 14 UNITS SUB-Q (17:59)
[2021-08-19 20:33] LABS: Glucose Point of Care 184 mg/dl (65-105)
[2021-08-19 20:55] LABS: Glucose Point of Care 194 mg/dl (65-105)
[2021-08-20] VITALS (14 sets, daily range): BP systolic 114–131; BP diastolic 37–47; PULSE 67–83; RESP 16–18; TEMP 36.2–37.1; O2SAT 96–100
[2021-08-20] MEDS: LEVOTHYROXINE SODIUM 75 MCG TABLET PO (05:49)
[2021-08-20 06:57] LABS: Basophils Absolute Auto 0.1 K/mm3 (0.0-0.1); Basophils Percent Auto 0.8 % (0.2-1.2); Eosinophils Absolute Auto 0.5 K/mm3 (0-0.3); Eosinophils Percent Auto 4.4 % (0-4.4); Hematocrit 29.1 % (37.0-47.0); Hemoglobin 9.1 g/dL (12.0-15.0); Immature Granulocyte Percent A 2.5 % (0-0.5); Lymphocytes Percent Auto 15.2 % (18.3-44.2); Mean Corpuscular HGB Conc 31.3 g/dl (32-36); Mean Corpuscular Hemoglobin 32.2 pg (26-34); Mean Corpuscular Volume 102.8 fl (80-100); Mean Platelet Volume 8.9 fl (7.4-10.4); Monocytes Absolute Auto 0.9 K/mm3 (0.1-0.6); Monocytes Percent Auto 7.7 % (2.6-8.5); Neutrophils Absolute Auto 8.2 K/mm3 (1.3-6.7); Neutrophils Percent Auto 69.4 % (45.5-73.1); Platelet Count Result 173 k/mm3 (150-375); Red Blood Count 2.83 M/mm3 (4.2-5.4); Red Cell Distribution Width 15.7 % (11.5-14.5); White Blood Count 11.8 K/mm3 (4.5-10.0)
[2021-08-20 07:23] LABS: Albumin Level 2.6 g/dL (3.5-5.1); Anion Gap 10 mmol/L (8-16); Blood Urea Nitrogen 31 mg/dL (7-17); Calcium 7.5 mg/dL (8.4-10.2); Carbon Dioxide 27 mmol/L (22-30); Chloride 96 mmol/L (98-107); Estimated CRCL calculation 7 ml/min; Estimated Glomerular Filt Rate 7; Glucose 114 mg/dL (65-110); Phosphorus 5.6 mg/dL (2.5-4.5); Potassium 3.5 mmol/L (3.4-5.0); Sodium 133 mmol/L (137-145)
[2021-08-20 08:12] LABS: Glucose Point of Care 104 mg/dl (65-105)
[2021-08-20] MEDS: ROSUVASTATIN 10 MG TABLET 40 MG PO (08:36)
[2021-08-20] MEDS: SEVELAMER CARBONATE 800 MG TABLET 3200 MG PO ×3 (08:36→17:15)
[2021-08-20] MEDS: ISOSORBIDE MONONITRATE 30 MG TAB.ER.24H PO (08:37)
[2021-08-20] MEDS: FERROUS SULFATE 324 MG TABLET PO (08:37)
[2021-08-20] MEDS: CHOLECALCIFEROL 1,000 UNITS TABLET 2000 UNITS PO (08:37)
[2021-08-20] MEDS: POTASSIUM CHLORIDE 20 MEQ TABLET.ER PO (08:37)
[2021-08-20] MEDS: SERTRALINE HCL 50 MG TABLET PO (08:37)
[2021-08-20] MEDS: polyethylene glycoL 3350 17 GM POWD.PACK PO (08:37)
[2021-08-20] MEDS: ASPIRIN 81 MG ENTERIC TABLET PO (08:37)
[2021-08-20] MEDS: OMEGA 3 POLYUNSAT FATTY ACIDS 1 GM CAP PO (08:37)
[2021-08-20] MEDS: THERAPEUTIC MULTIVITAMINS/MINERALS TAB (*BKC) 1 TABLET PO (08:40)
[2021-08-20] MEDS: SOLOSITE WOUND GEL 85 GM TUBE 1 APPLIC TOPICAL (08:40)
[2021-08-20] MEDS: INSULIN GLARGINE (*BKC) 100 UNITS/ML 36 UNITS SUB-Q (08:44)
[2021-08-20 10:16] LABS: CRP 2.3 mg/dL (<1.0); Lactic Acid Reflex 2.1 mmol/L (0.7-2.0)
[2021-08-20 10:30] LABS: Procalcitonin 0.6 ng/mL
--- NOTE | 2021-08-20 10:45 | PM.PNNEP ---
Progress Note: A&P Assessment and Plan (1) ESRD (end stage renal disease): Code(s): N18.6 - End stage renal disease Status: Chronic Assessment and Plan: continue nightly CCPD while hospitalized follow electrolytes, volume status, and clearance (2) Syncope: Onset Date: ~07/2021 Qualifiers: Syncope type: unspecified Qualified Code(s): R55 - Syncope and collapse Code(s): R55 - Syncope and collapse Status: Acute Assessment and Plan: work-up/testing noted Echo and carotid duplex results noted backing off on BP medications as well holding with parameters PT/OT as tolerated need rehab on discharge(?) (3) Abdominal mass: Onset Date: ~08/2021 Code(s): R19.00 - Intra-abdominal and pelvic swelling, mass and lump, unspecified site Status: Acute Assessment and Plan: incidentally noted on CT scan of abdomen Surgery evaluation and recommendations noted GI following - s/p EGD and colonoscopy small bowel study results noted discussed case extensively with Dr. Geiger yesterday -- probably would aim to optimize strength/physical status of patient first prior to further intervention (which will likely require surgical intervention) and will also need to discuss likely transition to hemodialysis (temporarily versus permanent) should patient/family want to purse surgical intervention as well. (4) Anemia: Code(s): D64.9 - Anemia, unspecified Status: Chronic Assessment and Plan: PRBC transfusion on 08/13/21 follow trend of H/H Epogen 3x/week while hospitalized (5) PVD (peripheral vascular disease): Code(s): I73.9 - Peripheral vascular disease, unspecified Status: Chronic Assessment and Plan: s/p left 1st and 2nd toe amputation arterial dopplers results noted follow-up with Vascular surgery (6) Hypertension: Code(s): I10 - Essential (primary) hypertension Status: Chronic Assessment and Plan: reasonable control BP medication adjustments done due to #2 follow trend of hemodynamics (7) Diabetes: Code(s): E11.9 - Type 2 diabetes mellitus without complications Status: Chronic Assessment and Plan: follow accuchecks on SSI and Lantus Will continue to follow. Subjective Date/time seen: 08/20/21 10:45 No new issues or problems voiced at this time; continues to tolerate CCPD treatment without any concerns; still appears somewhat weak but PT/OT following; no other acute complaints to report; BP seems to be doing a bit better currently. Exam Narrative: General: WD/WN elderly female in NAD Heart: normal S1 and S2; no rub Lungs: clear to auscultation Abdomen: soft, nontender, nondistended, positive bowel sounds Extremities: no cyanosis or clubbing; no edema Skin: warm and intact Objective Data Vital Signs Vital Signs: Vital Signs Temp Pulse Resp BP Pulse Ox 08/20/21 09:45 115/37 L 08/20/21 08:00 70 125/40 L 08/20/21 06:50 36.6 C 83 16 114/40 L 08/20/21 04:50 36.6 C 83 16 114/40 L 100 08/20/21 04:45 68 08/20/21 04:00 68 08/20/21 00:00 71 08/19/21 20:37 36.8 C 75 16 94/42 L 94 08/19/21 20:00 78 08/19/21 19:38 95 08/19/21 16:00 89 08/19/21 14:00 37.8 C H 83 16 95/38 L 100 08/19/21 12:00 79 Intake/Output Intake/Output: Intake & Output 08/17/21 08/18/21 08/19/21 08/20/21 23:59 23:59 23:59 23:59 Intake Total 893 239 7055 170 Output Total -296 406 Balance 175 710 2809 -236 Meds/Results Medications: Active Medications Generic Name Dose Route Start Last Admin Trade Name Freq PRN Reason Stop Dose Admin Hydrocodone Bitart/Acetaminophen 1 tab 08/12/21 19:01 08/16/21 18:07 Hydrocodone/Acetaminophen (*Crx) 5-325 Mg Tablet PO 1 tab BID PRN Administration Pain (Scale Score 4-6) Aspirin 81 mg 08/12/21 09:00 08/20/21 08:37
--- NOTE | 2021-08-20 10:45 | P.PNNP_ITS ---
Progress Note: A&P Assessment and Plan (1) ESRD (end stage renal disease): Code(s): N18.6 - End stage renal disease Status: Chronic Assessment and Plan: * continue nightly CCPD while hospitalized * follow electrolytes, volume status, and clearance (2) Syncope: Onset Date: ~07/2021 Qualifiers: Syncope type: unspecified Qualified Code(s): R55 - Syncope and collapse Code(s): R55 - Syncope and collapse Status: Acute Assessment and Plan: * work-up/testing noted * Echo and carotid duplex results noted * backing off on BP medications as well holding with parameters * PT/OT as tolerated * need rehab on discharge(?) (3) Abdominal mass: Onset Date: ~08/2021 Code(s): R19.00 - Intra-abdominal and pelvic swelling, mass and lump, unspecified site Status: Acute Assessment and Plan: * incidentally noted on CT scan of abdomen * Surgery evaluation and recommendations noted * GI following - s/p EGD and colonoscopy * small bowel study results noted * discussed case extensively with Dr. Geiger yesterday -- probably would aim to optimize strength/physical status of patient first prior to further intervention (which will likely require surgical intervention) and will also need to discuss likely transition to hemodialysis (temporarily versus permanent) should patient/family want to purse surgical intervention as well. (4) Anemia: Code(s): D64.9 - Anemia, unspecified Status: Chronic Assessment and Plan: * PRBC transfusion on 08/13/21 * follow trend of H/H * Epogen 3x/week while hospitalized (5) PVD (peripheral vascular disease): Code(s): I73.9 - Peripheral vascular disease, unspecified Status: Chronic Assessment and Plan: * s/p left 1st and 2nd toe amputation * arterial dopplers results noted * follow-up with Vascular surgery (6) Hypertension: Code(s): I10 - Essential (primary) hypertension Status: Chronic Assessment and Plan: * reasonable control * BP medication adjustments done due to #2 * follow trend of hemodynamics (7) Diabetes: Code(s): E11.9 - Type 2 diabetes mellitus without complications Status: Chronic Assessment and Plan: * follow accuchecks * on SSI and Lantus Will continue to follow. Subjective Date/time seen: 08/20/21 10:45 No new issues or problems voiced at this time; continues to tolerate CCPD treatment without any concerns; still appears somewhat weak but PT/OT following; no other acute complaints to report; BP seems to be doing a bit better currently. Exam Narrative: General: WD/WN elderly female in NAD Heart: normal S1 and S2; no rub Lungs: clear to auscultation Abdomen: soft, nontender, nondistended, positive bowel sounds Extremities: no cyanosis or clubbing; no edema Skin: warm and intact Objective Data Vital Signs Vital Signs: Vital Signs Temp Pulse Resp BP Pulse Ox 08/20/21 09:45 115/37 L 08/20/21 08:00 70 125/40 L 08/20/21 06:50 36.6 C 83 16 114/40 L 08/20/21 04:50 36.6 C 83 16 114/40 L 100 08/20/21 04:45 68 08/20/21 04:00 68 08/20/21 00:00 71 08/19/21 20:37 36.8 C 75 16 94/42 L 94 08/19/21 20:00 78 08/19/21 19:38 95 08/19/21 16:00 89
[2021-08-20 11:29] LABS: Glucose Point of Care 137 mg/dl (65-105)
[2021-08-20 12:14] LABS: Erythrocyte Sedimentation Rate > 140 mm/hr (0-20)
[2021-08-20 12:57] LABS: Reflex Lactic Acid Yes or No Add Lactic
[2021-08-20 13:53] LABS: Lactic Acid 1.7 mmol/L (0.7-2.0)
[2021-08-20 16:29] LABS: Glucose Point of Care 146 mg/dl (65-105)
[2021-08-20] MEDS: GABAPENTIN 400 MG CAPSULE PO (17:15)
[2021-08-20] MEDS: INSULIN GLARGINE (*BKC) 100 UNITS/ML 14 UNITS SUB-Q (17:17)
--- NOTE | 2021-08-20 18:44 | PM.IMPN ---
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 One of these had high-grade dysplasia. For this reason follow-up colonoscopy is advised in 1-2 years. (4) Cholelithiasis NOS: Code(s): K80.20 - Calculus of gallbladder without cholecystitis without obstruction Status: Acute (5) End-stage renal disease on peritoneal dialysis: Code(s): N18.6 - End stage renal disease; Z99.2 - Dependence on renal dialysis Status: Acute Assessment and Plan: Will discuss patient's desire to go back on hemodialysis and discontinue peritoneal dialysis with Nephrology Additional Plan 08/11/21 Patient has apparently had 4 episodes of syncope or near syncope in the last 1.5 weeks. I suspect she may have orthostatic hypotension and with reports of ?always being dizzy? she probably has autonomic dysfunction. She will be monitor on telemetry however to rule out cardiac dysrhythmia. She has chronic carotid artery disease thus no need to repeat ultrasounds. Nephrology consulted for dialysis. Chest x-ray showed free intraperitoneal gas below the right hemidiaphragm though her abdominal exam is completely benign. Will alert nephrology, patient may need technique reviewed. Blood pressures were reviewed and they are stable. I do however suspect that she probably has orthostatic hypotension thus will monitor orthostatic vital signs. Her antihypertensives will be reviewed and resumed as appropriate. Continue levothyroxine and check TSH. Continue basal insulin. Initiate sliding scale insulin, Accu-Cheks, and hypoglycemic protocol. Check hemoglobin A1c. 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 No evidence of infection on exam today. Wound nurse consulted. 08/12/21 cont workup x syncope orthostatics PHD tamiko, Dr Gee managing rising WBC without source CT abd pelvis ordered CXR reviewed, free air likely associated w PD healing wound on LLE that does not appear to be source of infection on gross examination blood cultures ordered POC reviewed w Dr Gee will empirically cover for skin microbes pending further workup 08/13/21 pt doing ok WBC downtrending on Zosyn Blood cx pending complains of LLE heaviness and difficulty lifting moving ext -> US to r/o DVT of thigh Hgb < 7 on am labs 1UPRBC ordered CT abd/pelvis w spiculated mass c/s Surgery / GI PT/OT wound care 08/14/21 coreg decrease to 6.25mg BID 200cc NS bolus given over 2 hours zofran prn HD per nephro am labs 08/15/21 coreg decreased to 3.125 BID may need to increase back to 6.[address] White cont supportive care ECHO reviewed Carotid US 50-69% surgery following for spiculated mass on CT abdomen c/s GI dc planning 08/16/21 Pt is orthostatic today continue to monitor CT shows mass in the small bowel mesentery concerning for a metastatic mass 08/17/2021 Pt found to have a mass in the small bowel mesentery concerning for a metastatic mass. ? carcinoid tumor. Surgery and GI teams are rounding Pt going down for colonoscopy and EGD today. 08/18/21 EGD and colonoscopy essentially benign, small-bowel follow-through showed ileal stricture. Awaiting General surgery recommendations. 08/19/2021 GI recommending referral to tertiary care center for surgical intervention. General surgery has signed off they were unable to provide further services at this lnua
[2021-08-20] MEDS: carvediloL 3.125 MG TABLET PO (20:49)
[2021-08-20 21:45] LABS: Glucose Point of Care 155 mg/dl (65-105)
[2021-08-21] VITALS (12 sets, daily range): BP systolic 118–154; BP diastolic 39–56; PULSE 64–77; RESP 16–18; TEMP 36.1–36.3; O2SAT 95–99
[2021-08-21] MEDS: LEVOTHYROXINE SODIUM 75 MCG TABLET PO (05:40)
[2021-08-21 07:31] LABS: Potassium 3.9 mmol/L (3.4-5.0)
[2021-08-21 07:55] LABS: Glucose Point of Care 78 mg/dl (65-105)
[2021-08-21] MEDS: INSULIN GLARGINE (*BKC) 100 UNITS/ML 30 UNITS SUB-Q (09:37)
[2021-08-21] MEDS: THERAPEUTIC MULTIVITAMINS/MINERALS TAB (*BKC) 1 TABLET PO (09:42)
[2021-08-21] MEDS: CHOLECALCIFEROL 1,000 UNITS TABLET 2000 UNITS PO (09:42)
[2021-08-21] MEDS: OMEGA 3 POLYUNSAT FATTY ACIDS 1 GM CAP PO (09:42)
[2021-08-21] MEDS: carvediloL 3.125 MG TABLET PO ×2 (09:42→20:24)
[2021-08-21] MEDS: FERROUS SULFATE 324 MG TABLET PO (09:43)
[2021-08-21] MEDS: SEVELAMER CARBONATE 800 MG TABLET 3200 MG PO ×3 (09:43→16:46)
[2021-08-21] MEDS: ROSUVASTATIN 10 MG TABLET 40 MG PO (09:43)
[2021-08-21] MEDS: guanFACINE HCL 1 MG TABLET PO (09:43)
[2021-08-21] MEDS: POTASSIUM CHLORIDE 20 MEQ TABLET.ER PO (09:44)
[2021-08-21] MEDS: ASPIRIN 81 MG ENTERIC TABLET PO (09:44)
[2021-08-21] MEDS: SERTRALINE HCL 50 MG TABLET PO (09:44)
[2021-08-21] MEDS: ISOSORBIDE MONONITRATE 30 MG TAB.ER.24H PO (09:44)
[2021-08-21] MEDS: SOLOSITE WOUND GEL 85 GM TUBE 1 APPLIC TOPICAL (09:46)
[2021-08-21 11:24] LABS: Glucose Point of Care 163 mg/dl (65-105)
--- NOTE | 2021-08-21 11:32 | PCPTNOTE ---
Patient declined treatment this morning, stating was was just to tired, asked if I could come back later.
--- NOTE | 2021-08-21 11:45 | P.PNNP_ITS ---
Progress Note: A&P Assessment and Plan (1) ESRD (end stage renal disease): Code(s): N18.6 - End stage renal disease Status: Chronic Assessment and Plan: * continue nightly CCPD while hospitalized * follow electrolytes, volume status, and clearance * patient interested in switching back to hemodialysis...she seems to want to do this LINNETTE more so to make her life easier as well as to explore all of her options with regard to the possible need for abdominal surgery in the near future * will ask Surgery to place tunneled HD catheter (2) Syncope: Onset Date: ~07/2021 Qualifiers: Syncope type: unspecified Qualified Code(s): R55 - Syncope and collapse Code(s): R55 - Syncope and collapse Status: Acute Assessment and Plan: * work-up/testing noted * Echo and carotid duplex results noted * backing off on BP medications as well holding with parameters * PT/OT as tolerated * need rehab on discharge(?) (3) Abdominal mass: Onset Date: ~08/2021 Code(s): R19.00 - Intra-abdominal and pelvic swelling, mass and lump, unspecified site Status: Acute Assessment and Plan: * incidentally noted on CT scan of abdomen * Surgery evaluation and recommendations noted * GI following - s/p EGD and colonoscopy * small bowel study results noted * patient would like to discuss further investigation options with Oncology (4) Anemia: Code(s): D64.9 - Anemia, unspecified Status: Chronic Assessment and Plan: * PRBC transfusion on 08/13/21 * follow trend of H/H * Epogen 3x/week while hospitalized (5) PVD (peripheral vascular disease): Code(s): I73.9 - Peripheral vascular disease, unspecified Status: Chronic Assessment and Plan: * s/p left 1st and 2nd toe amputation * arterial dopplers results noted * follow-up with Vascular surgery (6) Hypertension: Code(s): I10 - Essential (primary) hypertension Status: Chronic Assessment and Plan: * reasonable control * BP medication adjustments done due to #2 * follow trend of hemodynamics (7) Diabetes: Code(s): E11.9 - Type 2 diabetes mellitus without complications Status: Chronic Assessment and Plan: * follow accuchecks * on SSI and Lantus Will continue to follow. Subjective Date/time seen: 08/21/21 11:45 No acute issues or problems voiced at this time; informs me that she wants to go back hemodialysis -- her is the one who really does all the work and it is difficult for him and with the issues related to the newly discovered abdominal mass, she may require surgical intervention which may make doing PD difficult as well. Exam Narrative: General: WD/WN elderly female in NAD Heart: normal S1 and S2; no rub Lungs: clear to auscultation Abdomen: soft, nontender, nondistended, positive bowel sounds Extremities: no cyanosis or clubbing; no edema Skin: warm and intact Objective Data Vital Signs Vital Signs: Vital Signs Temp Pulse Resp BP Pulse Ox 08/21/21 10:15 118/39 L 08/21/21 08:00 36.3 C L 71 16 154/56 H 08/21/21 04:29 36.3 C L 68 16 154/56 H 99 08/21/21 04:00 75 08/21/21 00:00 74 08/20/21 20:49 72 08/20/21 20:44 36.2 C L 70 16 131/47 L 96 08/20/21 20:00 74 08/20/21 18:05
--- NOTE | 2021-08-21 11:45 | PM.PNNEP ---
Progress Note: A&P Assessment and Plan (1) ESRD (end stage renal disease): Code(s): N18.6 - End stage renal disease Status: Chronic Assessment and Plan: continue nightly CCPD while hospitalized follow electrolytes, volume status, and clearance patient interested in switching back to hemodialysis...she seems to want to do this LINNETTE more so to make her life easier as well as to explore all of her options with regard to the possible need for abdominal surgery in the near future will ask Surgery to place tunneled HD catheter (2) Syncope: Onset Date: ~07/2021 Qualifiers: Syncope type: unspecified Qualified Code(s): R55 - Syncope and collapse Code(s): R55 - Syncope and collapse Status: Acute Assessment and Plan: work-up/testing noted Echo and carotid duplex results noted backing off on BP medications as well holding with parameters PT/OT as tolerated need rehab on discharge(?) (3) Abdominal mass: Onset Date: ~08/2021 Code(s): R19.00 - Intra-abdominal and pelvic swelling, mass and lump, unspecified site Status: Acute Assessment and Plan: incidentally noted on CT scan of abdomen Surgery evaluation and recommendations noted GI following - s/p EGD and colonoscopy small bowel study results noted patient would like to discuss further investigation options with Oncology (4) Anemia: Code(s): D64.9 - Anemia, unspecified Status: Chronic Assessment and Plan: PRBC transfusion on 08/13/21 follow trend of H/H Epogen 3x/week while hospitalized (5) PVD (peripheral vascular disease): Code(s): I73.9 - Peripheral vascular disease, unspecified Status: Chronic Assessment and Plan: s/p left 1st and 2nd toe amputation arterial dopplers results noted follow-up with Vascular surgery (6) Hypertension: Code(s): I10 - Essential (primary) hypertension Status: Chronic Assessment and Plan: reasonable control BP medication adjustments done due to #2 follow trend of hemodynamics (7) Diabetes: Code(s): E11.9 - Type 2 diabetes mellitus without complications Status: Chronic Assessment and Plan: follow accuchecks on SSI and Lantus Will continue to follow. Subjective Date/time seen: 08/21/21 11:45 No acute issues or problems voiced at this time; informs me that she wants to go back hemodialysis -- her is the one who really does all the work and it is difficult for him and with the issues related to the newly discovered abdominal mass, she may require surgical intervention which may make doing PD difficult as well. Exam Narrative: General: WD/WN elderly female in NAD Heart: normal S1 and S2; no rub Lungs: clear to auscultation Abdomen: soft, nontender, nondistended, positive bowel sounds Extremities: no cyanosis or clubbing; no edema Skin: warm and intact Objective Data Vital Signs Vital Signs: Vital Signs Temp Pulse Resp BP Pulse Ox 08/21/21 10:15 118/39 L 08/21/21 08:00 36.3 C L 71 16 154/56 H 08/21/21 04:29 36.3 C L 68 16 154/56 H 99 08/21/21 04:00 75 08/21/21 00:00 74 08/20/21 20:49 72 08/20/21 20:44 36.2 C L 70 16 131/47 L 96 08/20/21 20:00 74 08/20/21 18:05 37.1 C 67 18 118/45 L 08/20/21 16:00 67 08/20/21 14:00 37.1 C 68 18 115/45 L 100 08/20/21 12:00 74 Intake/Output Intake/Output: Intake & Output 08/18/21 08/19/21 08/20/21 08/21/21 23:59 23:59 23:59 23:59 Intake Total 760 1320 1420 170 Output Total -420 529 2870 Balance 760 1616 1014 -982 Meds/Results Medications: Active Medications Generic Name Dose Route Start Last Admin Trade Name Freq PRN Reason Stop Dose Admin Hydrocodone Bitart/Acetaminophen 1 tab 08/12/21 19:01 08/16/21 18:07 Hydrocodone/Acetaminophen (*Crx) 5-325 Mg Tablet PO 1 tab BID PRN Adminis
[2021-08-21] MEDS: ONDANSETRON HCL ODT 4 MG TABLET PO (13:40)
[2021-08-21] MEDS: MIDODRINE HCL 2.5 MG TABLET PO ×2 (14:39→16:47)
[2021-08-21 16:32] LABS: Glucose Point of Care 109 mg/dl (65-105)
[2021-08-21] MEDS: GABAPENTIN 400 MG CAPSULE PO (16:46)
[2021-08-21] MEDS: INSULIN GLARGINE (*BKC) 100 UNITS/ML 14 UNITS SUB-Q (16:49)
[2021-08-21 20:12] LABS: Glucose Point of Care 144 mg/dl (65-105)
[2021-08-22] VITALS (11 sets, daily range): BP systolic 87–152; BP diastolic 38–67; PULSE 60–75; RESP 16; TEMP 36.3–37; O2SAT 97–100
[2021-08-22] MEDS: LEVOTHYROXINE SODIUM 75 MCG TABLET PO (05:30)
[2021-08-22 08:06] LABS: Glucose Point of Care 63 mg/dl (65-105)
--- NOTE | 2021-08-22 08:21 | PC.NURSE ---
Patient blood glucose was 63 this morning, breakfast tray at bedside now. Patient encouraged to eat and nurse will be back to recheck blood glucose.
[2021-08-22] MEDS: SEVELAMER CARBONATE 800 MG TABLET 3200 MG PO ×3 (08:35→16:32)
[2021-08-22] MEDS: ROSUVASTATIN 10 MG TABLET 40 MG PO (08:35)
[2021-08-22] MEDS: CHOLECALCIFEROL 1,000 UNITS TABLET 2000 UNITS PO (08:36)
[2021-08-22] MEDS: MIDODRINE HCL 2.5 MG TABLET PO ×3 (08:36→16:32)
[2021-08-22] MEDS: FERROUS SULFATE 324 MG TABLET PO (08:36)
[2021-08-22] MEDS: ASPIRIN 81 MG ENTERIC TABLET PO (08:36)
[2021-08-22] MEDS: guanFACINE HCL 1 MG TABLET PO (08:36)
[2021-08-22] MEDS: DOCUSATE SODIUM 100 MG CAPSULE PO (08:36)
[2021-08-22] MEDS: THERAPEUTIC MULTIVITAMINS/MINERALS TAB (*BKC) 1 TABLET PO (08:36)
[2021-08-22] MEDS: SERTRALINE HCL 50 MG TABLET PO (08:36)
[2021-08-22] MEDS: carvediloL 3.125 MG TABLET PO ×2 (08:37→20:33)
[2021-08-22] MEDS: ISOSORBIDE MONONITRATE 30 MG TAB.ER.24H PO (08:37)
[2021-08-22] MEDS: OMEGA 3 POLYUNSAT FATTY ACIDS 1 GM CAP PO (08:37)
[2021-08-22] MEDS: polyethylene glycoL 3350 17 GM POWD.PACK PO (08:37)
[2021-08-22] MEDS: POTASSIUM CHLORIDE 20 MEQ TABLET.ER PO (08:37)
[2021-08-22] MEDS: SOLOSITE WOUND GEL 85 GM TUBE 1 APPLIC TOPICAL (08:38)
[2021-08-22 08:48] LABS: Glucose Point of Care 74 mg/dl (65-105)
--- NOTE | 2021-08-22 11:19 | P.PNNP_ITS ---
Progress Note: A&P Assessment and Plan (1) ESRD (end stage renal disease): Code(s): N18.6 - End stage renal disease Status: Chronic Assessment and Plan: * continue nightly CCPD while hospitalized * patient is on Peritoneal dialysis and tolerating it well. * fluid status looks good. * Labs okay. * She was seen at 7:00 a.m. (2) Syncope: Onset Date: ~07/2021 Qualifiers: Syncope type: unspecified Qualified Code(s): R55 - Syncope and collapse Code(s): R55 - Syncope and collapse Status: Acute Assessment and Plan: * work-up/testing noted * Echo and carotid duplex results noted * backing off on BP medications as well holding with parameters * PT/OT as tolerated * need rehab on discharge(?) (3) Abdominal mass: Onset Date: ~08/2021 Code(s): R19.00 - Intra-abdominal and pelvic swelling, mass and lump, unspecified site Status: Acute Assessment and Plan: * incidentally noted on CT scan of abdomen * Surgery evaluation and recommendations noted * GI following - s/p EGD and colonoscopy * small bowel study results noted * patient would like to discuss further investigation options with Oncology (4) Anemia: Code(s): D64.9 - Anemia, unspecified Status: Chronic Assessment and Plan: * PRBC transfusion on 08/13/21 * follow trend of H/H * Epogen 3x/week while hospitalized (5) PVD (peripheral vascular disease): Code(s): I73.9 - Peripheral vascular disease, unspecified Status: Chronic Assessment and Plan: * s/p left 1st and 2nd toe amputation * arterial dopplers results noted * follow-up with Vascular surgery (6) Hypertension: Code(s): I10 - Essential (primary) hypertension Status: Chronic Assessment and Plan: * reasonable control * BP medication adjustments done due to #2 * follow trend of hemodynamics (7) Diabetes: Code(s): E11.9 - Type 2 diabetes mellitus without complications Status: Chronic Assessment and Plan: * follow accuchecks * on SSI and Lantus Will continue to follow. Subjective Date/time seen: 08/22/21 11:19 Interval history: I talked with patient. She feels okay today. She is slowly getting stronger. She now wants to switch back to hemodialysis. To be best done by having a fistula placed. We can make this referral for her while she is in the hospital so that the appointment is sooner after discharge Exam Narrative: General: WD/WN elderly female in NAD Heart: normal S1 and S2; no rub Lungs: clear to auscultation Abdomen: soft, nontender, nondistended, positive bowel sounds Extremities: no cyanosis or clubbing; no edema Skin: no rash Objective Data Vital Signs Vital Signs: Vital Signs - 24 hr 08/21/21 12:00 08/21/21 14:00 08/21/21 16:00 Temperature 36.2 C L Pulse Rate 75 77 64 Respiratory Rate 18 Blood Pressure 137/52 L Pulse Oximetry 96 08/21/21 17:29 08/21/21 20:00 08/21/21 20:21 Temperature 36.2 C L 36.1 C L Pulse Rate 77 71 76 Respiratory Rate 18 18 Blood Pressure 137/52 L 136/53 L Pulse Oximetry 95 08/21/21 20:24 08/22/21 00:00 08/22/21 04:00 Temperature Pulse Rate 72 68 60 Respiratory Rate
--- NOTE | 2021-08-22 11:19 | PM.PNNEP ---
Progress Note: A&P Assessment and Plan (1) ESRD (end stage renal disease): Code(s): N18.6 - End stage renal disease Status: Chronic Assessment and Plan: continue nightly CCPD while hospitalized patient is on Peritoneal dialysis and tolerating it well. fluid status looks good. Labs okay. She was seen at 7:00 a.m. (2) Syncope: Onset Date: ~07/2021 Qualifiers: Syncope type: unspecified Qualified Code(s): R55 - Syncope and collapse Code(s): R55 - Syncope and collapse Status: Acute Assessment and Plan: work-up/testing noted Echo and carotid duplex results noted backing off on BP medications as well holding with parameters PT/OT as tolerated need rehab on discharge(?) (3) Abdominal mass: Onset Date: ~08/2021 Code(s): R19.00 - Intra-abdominal and pelvic swelling, mass and lump, unspecified site Status: Acute Assessment and Plan: incidentally noted on CT scan of abdomen Surgery evaluation and recommendations noted GI following - s/p EGD and colonoscopy small bowel study results noted patient would like to discuss further investigation options with Oncology (4) Anemia: Code(s): D64.9 - Anemia, unspecified Status: Chronic Assessment and Plan: PRBC transfusion on 08/13/21 follow trend of H/H Epogen 3x/week while hospitalized (5) PVD (peripheral vascular disease): Code(s): I73.9 - Peripheral vascular disease, unspecified Status: Chronic Assessment and Plan: s/p left 1st and 2nd toe amputation arterial dopplers results noted follow-up with Vascular surgery (6) Hypertension: Code(s): I10 - Essential (primary) hypertension Status: Chronic Assessment and Plan: reasonable control BP medication adjustments done due to #2 follow trend of hemodynamics (7) Diabetes: Code(s): E11.9 - Type 2 diabetes mellitus without complications Status: Chronic Assessment and Plan: follow accuchecks on SSI and Lantus Will continue to follow. Subjective Date/time seen: 08/22/21 11:19 Interval history: I talked with patient. She feels okay today. She is slowly getting stronger. She now wants to switch back to hemodialysis. To be best done by having a fistula placed. We can make this referral for her while she is in the hospital so that the appointment is sooner after discharge Exam Narrative: General: WD/WN elderly female in NAD Heart: normal S1 and S2; no rub Lungs: clear to auscultation Abdomen: soft, nontender, nondistended, positive bowel sounds Extremities: no cyanosis or clubbing; no edema Skin: no rash Objective Data Vital Signs Vital Signs: Vital Signs - 24 hr 08/21/21 12:00 08/21/21 14:00 08/21/21 16:00 Temperature 36.2 C L Pulse Rate 75 77 64 Respiratory Rate 18 Blood Pressure 137/52 L Pulse Oximetry 96 08/21/21 17:29 08/21/21 20:00 08/21/21 20:21 Temperature 36.2 C L 36.1 C L Pulse Rate 77 71 76 Respiratory Rate 18 18 Blood Pressure 137/52 L 136/53 L Pulse Oximetry 95 08/21/21 20:24 08/22/21 00:00 08/22/21 04:00 Temperature Pulse Rate 72 68 60 Respiratory Rate Blood Pressure Pulse Oximetry 08/22/21 06:27 08/22/21 08:00 08/22/21 10:55 Temperature 37.0 C Pulse Rate 62 Respiratory Rate 16 Blood Pressure 102/38 L 87/67 L 114/44 L Pulse Oximetry 98 Intake/Output Intake/Output: Intake & Output 08/19/21 08/20/21 08/21/21 08/22/21 23:59 23:59 23:59 23:59 Intake Total 1320 1420 690 340 Output Total -077 828 4829 0 Balance 1616 1014 -462 340 Meds/Results Medications: Active Medications Generic Name Dose Route Start Last Admin Trade Name Freq PRN Reason Stop Dose Admin Hydrocodone Bitart/Acetaminophen 1 tab 08/12/21 19:01 08/16/21 18:07 Hydrocodone/Acetaminophen (*Crx) 5-325 Mg Tablet PO 1 tab BID PRN Adminis
[2021-08-22 12:42] LABS: Glucose Point of Care 130 mg/dl (65-105)
--- NOTE | 2021-08-22 13:08 | PDONCCN ---
HPI - Date of Consult Date/Time: 08/22/21 13:08 Requesting Physician: Glory Smith DO Primary Care Provider: Ayush Alonzo DO - Consult Narrative Reason for consult: Likely carcinoid tumor. Narrative: Jing Alfredo is a 76 year old female with history of insulin-dependent diabetes, peripheral vascular disease and stage renal disease on peritoneal dialysis since April of 2021. She came into the hospital for generalized weakness evaluation. Patient had 1st and 2nd toes amputation performed recently ago by Dr. Myers due to reported gangrene. 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 Colonoscopy showed colon polyp, sigmoid colon polyp, internal hemorrhoid and diverticulosis. Small bowel follow-through suggested terminal ileal stricture. This was unable to be assessed by colonoscopy. She denies any diarrhea and constipation. Denies any facial flushing. Denies any abdominal cramping. No other new complaint. Denies any recent weight loss. Review of Systems - Review of Systems All systems reviewed & are unremarkable except as noted in HPI and bel - Neurologic Reports system reviewed and no additional complaints, except as documented, Reports hearing normal, Denies abnormal speech, Denies confusion, Denies memory loss PMFSH Medical History: Medical History (Last Reviewed 08/13/21 @ 22:09 by El Geiger MD) Acute non-ST elevation myocardial infarction (NSTEMI) Anemia in chronic kidney disease, on chronic dialysis Atherosclerotic heart disease Bilateral carotid artery stenosis 70% stenosis bilateral carotids December 2018 CHF (congestive heart failure) Echocardiogram April 2020: EF 60 65%, grade 1 diastolic dysfunction, moderately increased left ventricular wall thickness, basal inferior wall, mid inferior wall are hypokinetic, moderate left atrial enlargement, mild mitral and tricuspid regurgitation, mild pulmonary hypertension with RVSP of 37 CVA (cerebral vascular accident) Onset Date: ~12/2016 Cerebellum and right occipital lobe due to septic emboli Diabetes mellitus Diabetic neuropathy End-stage renal disease on hemodialysis Initiated hemodialysis April 2020, transition to peritoneal dialysis thereafter End-stage renal disease on peritoneal dialysis Endocarditis Aortic valve endocarditis December 2016 Erythropoietin deficiency anemia Hypertension associated with diabetes Hypothyroidism Mixed hyperlipidemia Other heart block Renal osteodystrophy Surgical History: Surgical History (Last Reviewed 08/13/21 @ 22:09 by El Geiger MD) Amputation of toe of left foot Onset Date: 07/2021 Left 1st and 2nd toe for gangrene infection related to diabetic foot wound. History of coronary artery stent placement CA with 1 stent 2010 History of tonsillectomy and adenoidectomy History of tubal ligation History of vascular surgery Left lower extremity stent. Family History: Family History (Last Reviewed 08/13/21 @ 22:09 by El Geiger MD) Sibling Family history of Alzheimer's disease Grandparent Carcinoma of colon Father Family history of heart disease in male family member before age 55 Diabetes mellitus Mother Family history of heart disease in male family member before age 55 Diabetes mellitus Cerebrovascular accident Other Hypertension - Social History Social History: Social History (Last Reviewed 08/13/21 @ 22:10 by El Geiger MD) Others: Spiritual care concerns: No Smoking Status: Approximate Smoking End Date: 1989 [facility] Home Medications Medication Instructions Recorded Confirmed Type aspirin 81 mg tablet,delayed 81 mg PO DAILY 02/21/19 08/11/21 History release cholecalciferol (vitamin D3) 50 2,000 unit PO DAILY 02/21/19 08/11/21 History mcg (2,000 unit) tablet multivit with 1 tablet PO DAILY
--- NOTE | 2021-08-22 13:17 | PC.NURSE ---
Spoke with Sierra Jacobson and Dr. White r/t placement for tunneled HD catheter placement. Working on a plan to get this HD catheter placed.
[2021-08-22] MEDS: EPOETIN ALFA-EPBX 20,000 UNITS/ML VIAL 20000 UNITS SUB-Q (13:55)
[2021-08-22 16:31] LABS: Glucose Point of Care 114 mg/dl (65-105)
[2021-08-22] MEDS: GABAPENTIN 400 MG CAPSULE PO (16:32)
--- NOTE | 2021-08-22 16:59 | PM.IMPN ---
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 (2) Mesenteric mass: Code(s): K63.89 - Other specified diseases of intestine Status: Acute Assessment and Plan: Per above (3) Colon polyps: Code(s): K63.5 - Polyp of colon Status: Acute Assessment and Plan: Colon polyps removed at time of colonoscopy histology Reveals benign tubular adenoma and sessile serrated polyp. One of these had high-grade dysplasia. For this reason follow-up colonoscopy is advised in 1-2 years. (4) Cholelithiasis NOS: Code(s): K80.20 - Calculus of gallbladder without cholecystitis without obstruction Status: Acute (5) End-stage renal disease on peritoneal dialysis: Code(s): N18.6 - End stage renal disease; Z99.2 - Dependence on renal dialysis Status: Acute Assessment and Plan: Will discuss patient's desire to go back on hemodialysis and discontinue peritoneal dialysis with Nephrology Additional Plan 08/11/21 Patient has apparently had 4 episodes of syncope or near syncope in the last 1.5 weeks. I suspect she may have orthostatic hypotension and with reports of ?always being dizzy? she probably has autonomic dysfunction. She will be monitor on telemetry however to rule out cardiac dysrhythmia. She has chronic carotid artery disease thus no need to repeat ultrasounds. Nephrology consulted for dialysis. Chest x-ray showed free intraperitoneal gas below the right hemidiaphragm though her abdominal exam is completely benign. Will alert nephrology, patient may need technique reviewed. Blood pressures were reviewed and they are stable. I do however suspect that she probably has orthostatic hypotension thus will monitor orthostatic vital signs. Her antihypertensives will be reviewed and resumed as appropriate. Continue levothyroxine and check TSH. Continue basal insulin. Initiate sliding scale insulin, Accu-Cheks, and hypoglycemic protocol. Check hemoglobin A1c. 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 No evidence of infection on exam today. Wound nurse consulted. 08/12/21 cont workup x syncope orthostatics PHD tamiko, Dr Gee managing rising WBC without source CT abd pelvis ordered CXR reviewed, free air likely associated w PD healing wound on LLE that does not appear to be source of infection on gross examination blood cultures ordered POC reviewed w Dr Gee will empirically cover for skin microbes pending further workup 08/13/21 pt doing ok WBC downtrending on Zosyn Blood cx pending complains of LLE heaviness and difficulty lifting moving ext -> US to r/o DVT of thigh Hgb < 7 on am labs 1UPRBC ordered CT abd/pelvis w spiculated mass c/s Surgery / GI PT/OT wound care 08/14/21 coreg decrease to 6.25mg BID 200cc NS bolus given over 2 hours zofran prn HD per nephro am labs 08/15/21 coreg decreased to 3.125 BID may need to increase back to 6.[address] White cont supportive care ECHO reviewed Carotid US 50-69% surgery following for spiculated mass on CT abdomen c/s GI dc planning 08/16/21 Pt is orthostatic today continue to monitor CT shows mass in the small bowel mesentery concerning for a metastatic mass 08/17/2021 Pt found to have a mass in the small bowel mesentery concerning for a metastatic mass. ? carcinoid tumor. Surgery and GI teams are rounding Pt going down for colonoscopy and EGD today. 08/18/21 EGD and colonoscopy essentially benign, small-bowel follow-through showed ileal stricture. Awaiting General surgery recommendations. 08/19/2021 GI recommending referral to tertiary care center f
[2021-08-22 17:33] LABS: Hematocrit 33.3 % (37.0-47.0); Hemoglobin 10.4 g/dL (12.0-15.0); Mean Corpuscular HGB Conc 31.2 g/dl (32-36); Mean Corpuscular Hemoglobin 32.3 pg (26-34); Mean Corpuscular Volume 103.4 fl (80-100); Mean Platelet Volume 8.8 fl (7.4-10.4); Platelet Count Result 188 k/mm3 (150-375); Red Blood Count 3.22 M/mm3 (4.2-5.4); Red Cell Distribution Width 15.9 % (11.5-14.5); White Blood Count 13.4 K/mm3 (4.5-10.0)
[2021-08-22] MEDS: INSULIN GLARGINE (*BKC) 100 UNITS/ML 14 UNITS SUB-Q (17:33)
[2021-08-22] MEDS: MIDODRINE HCL 2.5 MG TABLET 5 MG PO (17:33)
[2021-08-22 17:39] LABS: Alanine Aminotransferase 14 U/L (6-35); Albumin Level 3.1 g/dL (3.5-5.1); Alkaline Phosphatase 41 U/L (38-126); Anion Gap 6 mmol/L (8-16); Aspartate Amino Transferase 45 U/L (14-36); Bilirubin,Total 0.3 mg/dL (0.2-1.3); Blood Urea Nitrogen 32 mg/dL (7-17); Calcium 7.8 mg/dL (8.4-10.2); Carbon Dioxide 31 mmol/L (22-30); Chloride 94 mmol/L (98-107); Estimated CRCL calculation 7 ml/min; Estimated Glomerular Filt Rate 7; Glucose 149 mg/dL (65-110); Potassium 4.3 mmol/L (3.4-5.0); Sodium 131 mmol/L (137-145)
[2021-08-22 19:44] LABS: Glucose Point of Care 179 mg/dl (65-105)
[2021-08-22] MEDS: HYDROcodone/acetaminophen (*CRX) 5-325 MG TABLET 1 TAB PO (21:20)
[2021-08-23] VITALS (16 sets, daily range): BP systolic 89–133; BP diastolic 42–73; PULSE 58–68; RESP 12–20; TEMP 36.2–36.6; O2SAT 95–100
[2021-08-23 05:46] LABS: Albumin Level 2.6 g/dL (3.5-5.1); Anion Gap 2 mmol/L (8-16); Blood Urea Nitrogen 31 mg/dL (7-17); Calcium 7.5 mg/dL (8.4-10.2); Carbon Dioxide 31 mmol/L (22-30); Chloride 98 mmol/L (98-107); Estimated CRCL calculation 7 ml/min; Estimated Glomerular Filt Rate 7; Glucose 89 mg/dL (65-110); Phosphorus 5.8 mg/dL (2.5-4.5); Potassium 4.1 mmol/L (3.4-5.0); Sodium 131 mmol/L (137-145)
[2021-08-23] MEDS: LEVOTHYROXINE SODIUM 75 MCG TABLET PO (06:13)
[2021-08-23 07:50] LABS: Glucose Point of Care 84 mg/dl (65-105)
[2021-08-23] MEDS: SERTRALINE HCL 50 MG TABLET PO (08:34)
[2021-08-23] MEDS: MIDODRINE HCL 2.5 MG TABLET 5 MG PO ×2 (08:34→16:27)
[2021-08-23] MEDS: ASPIRIN 81 MG ENTERIC TABLET PO (08:34)
[2021-08-23] MEDS: guanFACINE HCL 1 MG TABLET PO (08:34)
[2021-08-23] MEDS: ISOSORBIDE MONONITRATE 30 MG TAB.ER.24H PO (08:34)
[2021-08-23] MEDS: carvediloL 3.125 MG TABLET PO ×2 (08:34→20:28)
[2021-08-23] MEDS: SOLOSITE WOUND GEL 85 GM TUBE 1 APPLIC TOPICAL (08:35)
--- NOTE | 2021-08-23 11:18 | WPDANESEPPF ---
Anes - Initial Pre Proc Eval Procedure: Operation Date: 08/17/21 12:30 Proposed Procedures p Esophagogastroduodenoscopy & Colonoscopy - Kris Brody MD Operation Date: 08/23/21 12:00 Proposed Procedures p Insertion Tunneled Dialysis Catheter - Rodri Valenzuela DO Date/Time: 08/23/21 11:18 Surgeon: Glory Smith DO Pre Op Diagnosis: Syncope/Generalized Weakness Patient Data Age: 76 Gender: F Height: 1.68 m Weight: 75.8 kg Last Vital Signs Temp 97.9 F 08/23/21 06:00 Pulse 60 08/23/21 08:34 Resp 16 08/23/21 06:00 BP 131/50 L 08/23/21 06:00 Pulse Ox 99 08/23/21 06:00 Allergies Allergy/AdvReac Type Severity Reaction Status Date / Time Sulfa (Sulfonamide Allergy Mild RASH Verified 08/11/21 10:28 Antibiotics) Home Medications Medication Instructions Recorded Confirmed Type aspirin 81 mg tablet,delayed 81 mg PO DAILY 02/21/19 08/11/21 History release cholecalciferol (vitamin D3) 50 2,000 unit PO DAILY 02/21/19 08/11/21 History mcg (2,000 unit) tablet multivit with 1 tablet PO DAILY 06/25/19 08/11/21 History rdoeqopx-lhjb-VT-lutein 8 mg iron-400 mcg-300 mcg tablet omega-3 fatty acids 1,000 mg 500 mg PO DAILY 06/25/19 08/12/21 History capsule carvedilol 12.5 mg tablet 12.5 mg PO Q12H 08/26/19 08/11/21 History guanfacine 1 mg tablet 1 mg PO DAILY 08/26/19 08/11/21 History clopidogrel 75 mg tablet 75 mg PO DAILY #90 tablet 04/26/21 08/11/21 Rx levothyroxine 75 mcg tablet 75 mcg PO DAILY #90 tablet 04/26/21 08/11/21 Rx insulin detemir U-100 100 unit/mL See Rx Instructions SUBCUT QAM #15 06/17/21 08/11/21 Rx (3 mL) subcutaneous pen ml rosuvastatin 40 mg tablet 40 mg PO DAILY #90 tablet 06/21/21 08/11/21 Rx sertraline 50 mg tablet 50 mg PO DAILY #30 tablet 08/01/21 08/11/21 Rx hydrocodone-acetaminophen [[place]] 1 tablet PO Q4H PRN 08/11/21 08/12/21 History docusate sodium 100 mg PO BID 08/12/21 08/12/21 History ferrous sulfate 325 mg PO DAILY 08/12/21 08/12/21 History furosemide 80 mg PO DAILY 08/12/21 08/12/21 History gabapentin 400 mg PO TID 08/12/21 08/12/21 History isosorbide mononitrate 60 mg PO DAILY 08/12/21 08/12/21 History polyethylene glycol 3350 [Miralax] 17 g PO DAILY 08/12/21 08/12/21 History blood sugar diagnostic #100 ea 08/15/21 Rx Laboratory Tests 08/22/21 08/22/21 08/22/21 12:37 13:33 16:29 WBC RBC Hgb Hct MCV MCH MCHC RDW Plt Count MPV Sodium Potassium Chloride Carbon Dioxide Anion Gap BUN Creatinine Estim Creat Clear Calc Estimated GFR Glucose POC Capillary Glucose 130 mg/dl H mg/dl 114 mg/dl H mg/dl (65-105) (65-105) Calcium Phosphorus Total Bilirubin AST ALT Alkaline Phosphatase Total Protein Albumin Serotonin Pending Chromogranin A Pending 08/22/21 08/22/21 08/22/21 17:23 17:23 19:39 WBC 13.4 K/mm3 H K/mm3 (4.5-10.0) RBC 3.22 M/mm3 L M/mm3 (4.2-5.4) Hgb 10.4 g/dL L g/dL (12.0-15.0) Hct 33.3 % L % (37.0-47.0) MCV 103.4 fl H fl (80-100) MCH 32.3 pg pg (26-34) MCHC 31.2 g/dl L g/dl (32-36) RDW 15.9 % H % (11.5-14.5) Plt Count 188 k/mm3 k/mm3 (150-375) MPV 8.8 fl fl (7.4-10.4) Sodium 131 mmol/L L mmol/L (137-145) Potassium 4.3 mmol/L mmol/L (3.4-5.0) Chloride 94 mmol/L L mmol/L (98-107) Carbon Dioxide 31 mmol/L H mmol/L (22-30) Anion Gap 6 mmol/L L mmol/L (8-16) BUN 32 mg/dL H mg/dL (7-17) Creatinine 6.20 mg/dL H mg/dL (0.7-1.0) Estim Creat Clear Calc
[2021-08-23] MEDS: SODIUM CHLORIDE 0.9% IV 500 ML 30 ML IV CONT (11:31)
--- NOTE | 2021-08-23 11:31 | PCPTNOTE ---
The patient treatment was not able to be completed on 08/23/2021 at 11:31 due to patient out of room for procedure. Will plan to continue treatment per plan of care.
--- NOTE | 2021-08-23 11:36 | PM.IMPN ---
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 (2) Mesenteric mass: Code(s): K63.89 - Other specified diseases of intestine Status: Acute Assessment and Plan: Per above (3) Colon polyps: Code(s): K63.5 - Polyp of colon Status: Acute Assessment and Plan: Colon polyps removed at time of colonoscopy histology Reveals benign tubular adenoma and sessile serrated polyp. One of these had high-grade dysplasia. For this reason follow-up colonoscopy is advised in 1-2 years. (4) Cholelithiasis NOS: Code(s): K80.20 - Calculus of gallbladder without cholecystitis without obstruction Status: Acute Assessment and Plan: Stable follow-up with surgery as outpatient (5) End-stage renal disease on peritoneal dialysis: Code(s): N18.6 - End stage renal disease; Z99.2 - Dependence on renal dialysis Status: Acute Assessment and Plan: Patient requested to be switched to hemodialysis cath placement 08/23/2021 Additional Plan CXR reviewed, free air likely associated w PD 08/18/21 EGD and colonoscopy essentially benign, small-bowel follow-through showed ileal stricture. Surgery recommendation no bowel obstruction Syncope multifactorial probably autonomic secondary to orthostatic hypotension concern for metastatic carcinoid tumor Treated with IV hydration Resolved Subjective Date/time seen: 08/23/21 11:36 Interval history: 76-year-old female with insulin-dependent diabetes, hypertension, peripheral vascular disease, end-stage renal disease on peritoneal dialysis, and several other comorbidities who presented to the emergency department from home for evaluation of generalized weakness. Two weeks ago she had her 1st and 2nd toes amputated per Dr. Myers for reported infection and gangrene related to diabetic foot wounds. She finished her antibiotic a couple of days ago and she saw Dr. Myers in the office just yesterday at which time the wound was cleaned and rewrapped. He mentioned that the wound was not as pink as he would have liked however he was otherwise happy with the results. Patient also complained of dizziness was found to have dehydration CT scan of the abdomen showed mesenteric mass small-bowel follow-through shows negative bowel obstruction surgery was consulted Heme-Onc was consulted GI was consulted patient had colonoscopy found to have multiple polyps patient to follow-up with GI as outpatient surgery recommended further workup with octreotide scan and probable PET scan as outpatient high concern for metastatic carcinoid tumor also patient has history of ESRD on peritoneal dialysis patient requested to change to hemodialysis PermCath was placed on 08/23/2021 Patient has leukocytosis hyponatremia most most likely related to possible metastatic tumor Patient feels weak today Patient denies fever headache chest pain shortness of breath I am seeing the patient for dizziness Exam Narrative: General: Chronically ill-appearing . Respiratory: Respirations are nonlabored. Lungs are clear to auscultation. Cardiovascular: Regular rate and rhythm with S1-S2. Gastrointestinal: Abdomen is soft, nontender, and nondistended. Peritoneal dialysis catheter Skin: Warm and dry. Generalized pallor. Status post left 1st and 2nd toe amputations. Extremities: No cyanosis, clubbing, or edema. Radial pulses palpable. Neurological: Alert and oriented. Cranial nerves 2-12 are grossly intact. Objective Data Vital Signs Vital Signs: Vital Signs - 24 hr 08/22/21 12:00 08/22/21 13:41 08/22/21 16:00 Temperature 97.3 F
--- NOTE | 2021-08-23 11:53 | WPDHPUPDATE1 ---
History and Physical Update Update Date/Time: 08/23/21 11:53 History and Physical has been reviewed, including an updated exam of the patient. There are NO changes in the patient's condition. Risks, benefits, and alternatives have been discussed and questions answered. Patient agrees to proceed with procedure.
--- NOTE | 2021-08-23 11:53 | PM.PNGS ---
Progress Note: A&P Assessment and Plan (1) End-stage renal disease on peritoneal dialysis: Code(s): N18.6 - End stage renal disease; Z99.2 - Dependence on renal dialysis Status: Acute Assessment and Plan: Patient will be needing hemodialysis access before being discharged. I have recommended proceeding with tunneled dialysis catheter placement. Discussed the procedure, risks, benefits, and alternatives. Questions answered. Subjective Subjective Date/Time Seen: 08/23/21 11:53 Interval history: Patient now in need of hemodialysis. 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 She has had a hemodialysis catheter in the past. Exam Resp: Effort & Inspection: normal respiratory effort Auscultation: clear to auscultation bilaterally GI: GI Palp: Yes Soft to palpation, No Tenderness to palpation present (GI) and No Guarding due to palpation present (GI) Objective Data Vital Signs Vital Signs: Vital Signs - 24 hr 08/22/21 12:00 08/22/21 13:41 08/22/21 16:00 Temperature 36.3 C L Pulse Rate 67 65 60 Respiratory Rate 16 Blood Pressure 110/53 L Pulse Oximetry 100 08/22/21 20:00 08/22/21 20:33 08/22/21 22:00 Temperature 36.7 C Pulse Rate 75 75 68 Respiratory Rate 16 16 Blood Pressure 152/45 H Pulse Oximetry 100 97 08/23/21 00:00 08/23/21 04:00 08/23/21 06:00 Temperature 36.6 C Pulse Rate 63 59 L 60 Respiratory Rate 16 Blood Pressure 131/50 L Pulse Oximetry 99 08/23/21 08:00 08/23/21 08:34 Temperature Pulse Rate 58 L 60 Respiratory Rate Blood Pressure Pulse Oximetry Intake/Output Intake/Output: Intake & Output 08/20/21 08/21/21 08/22/21 08/23/21 23:59 23:59 23:59 23:59 Intake Total 4357 818 0048 400 Output Total 406 1152 618 Balance 1014 -462 552 400 Meds/Results Medications: Active Medications Generic Name Dose Route Start Last Admin Trade Name Freq PRN Reason Stop Dose Admin Hydrocodone Bitart/Acetaminophen 1 tab 08/22/21 20:56 08/22/21 21:20 Hydrocodone/Acetaminophen (*Crx) 5-325 Mg Tablet PO 1 tab Q12H PRN Administration Pain Rated 4-6 Aspirin 81 mg 08/12/21 09:00 08/23/21 08:34 Aspirin 81 Mg Enteric Tablet PO 81 mg DAILY OSIEL Administration Carvedilol 3.125 mg 08/15/21 21:00 08/23/21 08:34 Carvedilol 3.125 Mg Tablet PO 3.125 mg Q12HR OSIEL Administration Clopidogrel Bisulfate 75 mg 08/12/21 09:00 08/14/21 09:23 Clopidogrel Bisulfate 75 Mg Tablet PO 75 mg DAILY OSIEL Administration Dextrose 12.5 gm 08/11/21 23:42 Dextrose 50% 25 Gm/50 Ml Syringe IV PUSH PRN PRN Hypoglycemia Protocol Docusate Sodium 100 mg 08/16/21 21:00 08/23/21 08:18 Docusate Sodium 100 Mg Capsule PO Not Given Q12HR [facility] Epoetin Salvador-epbx 20,000 units 08/12/21 11:30 08/22/21 13:55 Epoetin Salvador-Epbx 20,000 Units/Ml Vial SUB-Q 20,000 units MOWEFR [facility] Administration Fentanyl Citrate 25 mcg 08/23/21 11:27 Fentanyl Citrate Inj (*Crx) 100 Mcg/2 Ml Vial IV PUSH Q2M PRN Pain Ferrous Sulfate 324 mg 08/17/21 09:00 08/23/21 08:18 Ferrous Sulfate 324 Mg Tablet PO Not Given DAILY [facility] Fish Oil 1 gm 08/12/21 09:00 08/23/21 08:18 [place] 3 Polyunsat Fatty Acids 1 Gm Cap PO Not Given DAILY [facility] Gabapentin 400 mg 08/16/21 17:00 08/22/21 16:32 Gabapentin 400 Mg Capsule PO 400 mg DAILY@1700 OSIEL Administration Glucagon 1 mg 08/11/21 23:42 Glucagon For Inj 1 Mg Vial IM PRN PRN Hypoglycemia Protocol Glucose 15 gm 08/11/21 23:42 Glucose Oral Gel 15 Gm Of Glucse In 37.5 Gm Tube PO PRN PRN Hypoglycemia Protocol Guanfacine HCl 1 mg 08/12/21 09:00 08/23/21 08:34 Guanfacine Hcl 1 Mg Tablet PO 1 mg DAILY OSIEL Administration Dextrose 1,000 mls @ 100 mls/hr 08/11/21 23:42 Dextrose 5% 1,000 Ml IVPB PRN PRN Hypoglycemia P
[2021-08-23] MEDS: ceFAZolin SODIUM 1 GM VIAL 2 GM IV PUSH (12:17)
[2021-08-23] MEDS: HEPARIN SODIUM 5,000 UNITS/ML VIAL 5000 UNITS IRRIGATION (12:40)
[2021-08-23] MEDS: HEPARIN SODIUM, PORCINE 10,000 UNITS/10 ML VIAL 10000 UNITS IRRIGATION (12:42)
--- NOTE | 2021-08-23 12:50 | W.PM.PROC2 ---
Procedure Note - Detailed Date of Procedure 08/23/21 Pre-op Diagnosis End-stage renal disease Post-op Diagnosis Same Procedure Performed Left internal jugular tunneled dialysis catheter placement using ultrasound and fluoroscopic guidance Surgeon Rodri Valenzuela, DO Anesthesia MAC and Local (1% lidocaine with epinephrine) Indications This is a 76-year-old woman who presented with end-stage renal disease and need for hemodialysis access. She has been undergoing peritoneal dialysis but is possibly going to need the peritoneal dialysis catheter removed. She has had hemodialysis in the past. Discussions were made with the patient about treatment options and decision was made to proceed with tunneled dialysis catheter placement. Findings SonoSite ultrasound was used to inspect the neck prior to prepping and draping. Patient has had multiple internal jugular access is in the past and has scarring on the skin overlying the right internal jugular region as well as right anterior chest. Ultrasound did not show a widely patent right internal jugular vein, therefore I also inspected the left side and the left internal jugular vein appeared to be patent. Ultrasound guidance was then used to access the left internal jugular vein with an 18 gauge introducer needle. Fluoroscopy was then used to guide advancement of the guidewire followed by the dilators and sheath. The final fluoroscopic images showed the tip of the catheter in the right atrium and no kinks along its path. The catheter was pulled back about as far as it safely could be without the cuff being exposed at the chest skin incision. Description of Procedure Procedure as well as risks, benefits, and alternatives were discussed with patient. Written consent was obtained and placed in chart prior to procedure. Patient was brought back to surgical suite. Placed supine on operating table. Time-out was done confirm patient procedure. IV sedation was then administered by the Anesthesia Department. The left chest and neck area was prepped and draped in sterile fashion using chlorhexidine prep. Patient was placed in Trendelenburg position. SonoSite ultrasound was used to identify the left internal jugular vein. It was visualized as a compressible vessel just lateral to the carotid artery. 1% lidocaine with epinephrine was infiltrated directly over the vessel under ultrasound guidance. An 18 gauge introducer needle was then advanced under ultrasound guidance directly into the left internal jugular vein. Dark nonpulsatile blood was aspirated. A 0.035 in guidewire was then advanced through the needle under fluoroscopic guidance. The guidewire was visualized advancing all the way down into the superior vena cava. 1% lidocaine with epinephrine was then infiltrated on the left anterior chest and along the tract up to the guidewire insertion site. A 5 mm incision was made with a 15 blade scalpel. A small helen incision was then also made at the insertion site at the neck. The tunneler was then advanced from the chest incision up to the neck incision and the catheter tubing was brought up through this tract. The dilator and sheath were then advanced over the guidewire under fluoroscopic visualization. The dilator and guidewire were then removed leaving the sheath in place. The catheter tubing was then advanced through the sheath under fluoroscopic guidance. The sheath was unsnapped and carefully peeled away. The catheter tubing was released underneath the neck incision. Fluoroscopy was used to confirm proper placement of the catheter tubing and no kinks along its path. The catheter was then hep-locked with Hep-Lock solution. The skin of the incisions was then approximated using 4-0 Monocryl subcuticular suture. Exofin glue was then applied at the neck incision and 2x2 gauze and Tegaderm drassing applied at the chest. The patient was then awakened from anesthesia and transferred to recovery. Implants 28 cm DuraF
--- NOTE | 2021-08-23 13:09 | PCPTNOTE ---
Attempted to see patient for PT at this time, however patient out of room for procedure.
[2021-08-23 13:12] LABS: Glucose Point of Care 95 mg/dl (65-105)
--- NOTE | 2021-08-23 14:38 | PCPTNOTE ---
Attempted to see patient for PT at this time, however patient declined due to wanting to eat lunch.
--- NOTE | 2021-08-23 16:23 | P.PNNP_ITS ---
Progress Note: A&P Assessment and Plan (1) ESRD (end stage renal disease): Code(s): N18.6 - End stage renal disease Status: Chronic Assessment and Plan: * continue nightly CCPD while hospitalized * patient is on Peritoneal dialysis and tolerating it well. * fluid status looks good. * Labs okay. * She was seen at 7:00 a.m. (2) Syncope: Onset Date: ~07/2021 Qualifiers: Syncope type: unspecified Qualified Code(s): R55 - Syncope and collapse Code(s): R55 - Syncope and collapse Status: Acute Assessment and Plan: * work-up/testing noted * Echo and carotid duplex results noted * backing off on BP medications as well holding with parameters * PT/OT as tolerated * need rehab on discharge(?) * may need to go on HD for rehab if they can't do PD (3) Abdominal mass: Onset Date: ~08/2021 Code(s): R19.00 - Intra-abdominal and pelvic swelling, mass and lump, unspecified site Status: Acute Assessment and Plan: * incidentally noted on CT scan of abdomen * Surgery evaluation and recommendations noted * GI following - s/p EGD and colonoscopy * small bowel study results noted * patient would like to discuss further investigation options with Oncology (4) Anemia: Code(s): D64.9 - Anemia, unspecified Status: Chronic Assessment and Plan: * PRBC transfusion on 08/13/21 * Hb 10.4. (5) PVD (peripheral vascular disease): Code(s): I73.9 - Peripheral vascular disease, unspecified Status: Chronic Assessment and Plan: * s/p left 1st and 2nd toe amputation * arterial dopplers results noted * follow-up with Vascular surgery (6) Hypertension: Code(s): I10 - Essential (primary) hypertension Status: Chronic Assessment and Plan: * reasonable control * BP medication adjustments done due to #2 * follow trend of hemodynamics (7) Diabetes: Code(s): E11.9 - Type 2 diabetes mellitus without complications Status: Chronic Assessment and Plan: * follow accuchecks * on SSI and Lantus Will continue to follow. Subjective Date/time seen: 08/23/21 07:00 Interval history: I talked with patient. She feels okay today. She is slowly getting stronger. Exam Narrative: General: WD/WN elderly female in NAD Heart: normal S1 and S2; no rub Lungs: clear to auscultation Abdomen: soft, nontender, nondistended, positive bowel sounds Extremities: no cyanosis or clubbing; no edema Skin: no rash or sq nodules Objective Data Vital Signs Vital Signs: Vital Signs - 24 hr 08/22/21 20:00 08/22/21 20:33 08/22/21 22:00 Temperature 36.7 C Pulse Rate 75 75 68 Respiratory Rate 16 16 Blood Pressure 152/45 H Pulse Oximetry 100 97 08/23/21 00:00 08/23/21 04:00 08/23/21 06:00 Temperature 36.6 C Pulse Rate 63 59 L 60 Respiratory Rate 16 Blood Pressure 131/50 L Pulse Oximetry 99 08/23/21 08:00 08/23/21 08:34 08/23/21 12:54 Temperature 36.5 C Pulse Rate 58 L 60 68 Respiratory Rate 14 Blood Pressure 89/42 L Pulse Oximetry 99 08/23/21 13:05 08/23/21 13:15 08/23/21 13:30 Temperature Pulse Rate 6
--- NOTE | 2021-08-23 16:23 | PM.PNNEP ---
Progress Note: A&P Assessment and Plan (1) ESRD (end stage renal disease): Code(s): N18.6 - End stage renal disease Status: Chronic Assessment and Plan: continue nightly CCPD while hospitalized patient is on Peritoneal dialysis and tolerating it well. fluid status looks good. Labs okay. She was seen at 7:00 a.m. (2) Syncope: Onset Date: ~07/2021 Qualifiers: Syncope type: unspecified Qualified Code(s): R55 - Syncope and collapse Code(s): R55 - Syncope and collapse Status: Acute Assessment and Plan: work-up/testing noted Echo and carotid duplex results noted backing off on BP medications as well holding with parameters PT/OT as tolerated need rehab on discharge(?) may need to go on HD for rehab if they can't do PD (3) Abdominal mass: Onset Date: ~08/2021 Code(s): R19.00 - Intra-abdominal and pelvic swelling, mass and lump, unspecified site Status: Acute Assessment and Plan: incidentally noted on CT scan of abdomen Surgery evaluation and recommendations noted GI following - s/p EGD and colonoscopy small bowel study results noted patient would like to discuss further investigation options with Oncology (4) Anemia: Code(s): D64.9 - Anemia, unspecified Status: Chronic Assessment and Plan: PRBC transfusion on 08/13/21 Hb 10.4. (5) PVD (peripheral vascular disease): Code(s): I73.9 - Peripheral vascular disease, unspecified Status: Chronic Assessment and Plan: s/p left 1st and 2nd toe amputation arterial dopplers results noted follow-up with Vascular surgery (6) Hypertension: Code(s): I10 - Essential (primary) hypertension Status: Chronic Assessment and Plan: reasonable control BP medication adjustments done due to #2 follow trend of hemodynamics (7) Diabetes: Code(s): E11.9 - Type 2 diabetes mellitus without complications Status: Chronic Assessment and Plan: follow accuchecks on SSI and Lantus Will continue to follow. Subjective Date/time seen: 08/23/21 07:00 Interval history: I talked with patient. She feels okay today. She is slowly getting stronger. Exam Narrative: General: WD/WN elderly female in NAD Heart: normal S1 and S2; no rub Lungs: clear to auscultation Abdomen: soft, nontender, nondistended, positive bowel sounds Extremities: no cyanosis or clubbing; no edema Skin: no rash or sq nodules Objective Data Vital Signs Vital Signs: Vital Signs - 24 hr 08/22/21 20:00 08/22/21 20:33 08/22/21 22:00 Temperature 36.7 C Pulse Rate 75 75 68 Respiratory Rate 16 16 Blood Pressure 152/45 H Pulse Oximetry 100 97 08/23/21 00:00 08/23/21 04:00 08/23/21 06:00 Temperature 36.6 C Pulse Rate 63 59 L 60 Respiratory Rate 16 Blood Pressure 131/50 L Pulse Oximetry 99 08/23/21 08:00 08/23/21 08:34 08/23/21 12:54 Temperature 36.5 C Pulse Rate 58 L 60 68 Respiratory Rate 14 Blood Pressure 89/42 L Pulse Oximetry 99 08/23/21 13:05 08/23/21 13:15 08/23/21 13:30 Temperature Pulse Rate 64 63 65 Respiratory Rate 12 12 20 Blood Pressure 91/45 L 117/50 L 121/50 L Pulse Oximetry 99 99 100 08/23/21 13:52 08/23/21 14:05 08/23/21 14:35 Temperature 36.6 C 36.5 C 36.6 C Pulse Rate 64 64 65 Respiratory Rate 18 16 16 Blood Pressure 133/73 119/43 L 120/43 L Pulse Oximetry 95 99 99 Intake/Output Intake/Output: Intake & Output 08/20/21 08/21/21 08/22/21 08/23/21 23:59 23:59 23:59 23:59 Intake Total 8129 270 4263 990 Output Total 406 1152 618 0 Balance 1014 -462 552 990 Meds/Results Medications: Active Medications Generic Name Dose Route Start Last Admin Trade Name Freq PRN Reason Stop Dose Admin Hydrocodone Bitart/Acetaminophen 1 tab 08/22/21 20:56 08/22/21 21:20 Hydrocodone/Acetaminophen (*Crx) 5-325 Mg Tablet PO 1 t
[2021-08-23] MEDS: GABAPENTIN 400 MG CAPSULE PO (16:28)
[2021-08-23] MEDS: SEVELAMER CARBONATE 800 MG TABLET 3200 MG PO (16:28)
[2021-08-23 16:37] LABS: Glucose Point of Care 122 mg/dl (65-105)
[2021-08-23] MEDS: INSULIN GLARGINE (*BKC) 100 UNITS/ML 14 UNITS SUB-Q (17:15)
[2021-08-23] MEDS: HYDROcodone/acetaminophen (*CRX) 5-325 MG TABLET 1 TAB PO (20:28)
[2021-08-23 22:04] LABS: Glucose Point of Care 128 mg/dl (65-105)
[2021-08-24] VITALS (12 sets, daily range): BP systolic 140–156; BP diastolic 35–58; PULSE 56–69; RESP 16–20; TEMP 35.6–36.4; O2SAT 94–100
[2021-08-24] MEDS: LEVOTHYROXINE SODIUM 75 MCG TABLET PO (05:52)
--- NOTE | 2021-08-24 07:48 | WPDANESPN ---
Anes - Prog Note Post-Op Date/Time: 08/24/21 07:48 Cardiovascular status: normal Respiratory status: normal Airway patency: baseline Mental status: baseline Post-Op hydration status: normal Vital Signs: Last Vital Signs Temp 36.3 C L 08/24/21 04:43 Pulse 58 L 08/24/21 04:43 Resp 16 08/24/21 04:43 BP 140/46 L 08/24/21 04:43 Pulse Ox 98 08/24/21 04:43 Pain Score (VAS): 0 I/O: Intake & Output 08/23/21 08/23/21 08/24/21 15:59 23:59 07:59 Intake Total 590 410 0 Output Total 0 Balance 590 410 0 Laboratory Tests 08/22/21 17:23 08/23/21 05:17 08/23/21 08/23/21 08/23/21 07:37 13:10 16:26 POC Capillary Glucose 84 95 122 H 08/23/21 20:20 POC Capillary Glucose 128 H Post-procedural complaints: none Patient Feedback: Patient satisfied with anesthetic care.
[2021-08-24 07:50] LABS: Glucose Point of Care 141 mg/dl (65-105)
[2021-08-24] MEDS: SEVELAMER CARBONATE 800 MG TABLET 3200 MG PO ×3 (08:02→17:45)
[2021-08-24] MEDS: POTASSIUM CHLORIDE 20 MEQ TABLET.ER PO (08:02)
[2021-08-24] MEDS: ASPIRIN 81 MG ENTERIC TABLET PO (09:02)
[2021-08-24] MEDS: CHOLECALCIFEROL 1,000 UNITS TABLET 2000 UNITS PO (09:03)
[2021-08-24] MEDS: MIDODRINE HCL 2.5 MG TABLET 5 MG PO ×3 (09:03→17:44)
[2021-08-24] MEDS: THERAPEUTIC MULTIVITAMINS/MINERALS TAB (*BKC) 1 TABLET PO (09:04)
[2021-08-24] MEDS: ROSUVASTATIN 10 MG TABLET 40 MG PO (09:04)
[2021-08-24] MEDS: SERTRALINE HCL 50 MG TABLET PO (09:04)
[2021-08-24] MEDS: OMEGA 3 POLYUNSAT FATTY ACIDS 1 GM CAP PO (09:05)
[2021-08-24] MEDS: INSULIN GLARGINE (*BKC) 100 UNITS/ML 36 UNITS SUB-Q (09:06)
[2021-08-24] MEDS: ISOSORBIDE MONONITRATE 30 MG TAB.ER.24H PO (09:06)
[2021-08-24] MEDS: FERROUS SULFATE 324 MG TABLET PO (09:07)
[2021-08-24] MEDS: guanFACINE HCL 1 MG TABLET PO (09:07)
[2021-08-24] MEDS: carvediloL 3.125 MG TABLET PO ×2 (09:07→20:10)
--- NOTE | 2021-08-24 10:50 | PCNWS ---
Weekly nutritional screen. Patient is tolerating current Renal Dialysis diet. Oral Intake has been 50-75% of meals. Patient is drinking more than eating. Diet supplement of Nepro BID added for additional 425 kcals and 19 gms protein. No weight loss reported. No nutritional needs at this time.
--- NOTE | 2021-08-24 11:37 | P.PNNP_ITS ---
Progress Note: A&P Assessment and Plan (1) ESRD (end stage renal disease): Code(s): N18.6 - End stage renal disease Status: Chronic Assessment and Plan: * continue nightly CCPD while hospitalized * patient is on Peritoneal dialysis and tolerating it well. * fluid status looks good. * Labs okay. * continue peritoneal dialysis. * I discussed with corrections caseworker. (2) Syncope: Onset Date: ~07/2021 Qualifiers: Syncope type: unspecified Qualified Code(s): R55 - Syncope and collapse Code(s): R55 - Syncope and collapse Status: Acute Assessment and Plan: * work-up/testing noted * Echo and carotid duplex results noted * PT/OT as tolerated * Going to rehab on discharge (3) Abdominal mass: Onset Date: ~08/2021 Code(s): R19.00 - Intra-abdominal and pelvic swelling, mass and lump, unspecified site Status: Acute Assessment and Plan: * incidentally noted on CT scan of abdomen * Surgery evaluation and recommendations noted * GI following - s/p EGD and colonoscopy * small bowel study results noted * seeing Dr Barksdale (4) Anemia: Code(s): D64.9 - Anemia, unspecified Status: Chronic Assessment and Plan: * PRBC transfusion on 08/13/21 * Hb 10.4. (5) PVD (peripheral vascular disease): Code(s): I73.9 - Peripheral vascular disease, unspecified Status: Chronic Assessment and Plan: * s/p left 1st and 2nd toe amputation * arterial dopplers results noted * follow-up with Vascular surgery (6) Hypertension: Code(s): I10 - Essential (primary) hypertension Status: Chronic Assessment and Plan: * systolic 140 * BP medication adjustments done due to #2 * follow trend of hemodynamics (7) Diabetes: Code(s): E11.9 - Type 2 diabetes mellitus without complications Status: Chronic Assessment and Plan: * follow accuchecks * on SSI and Lantus Will continue to follow. Subjective Date/time seen: 08/24/21 11:37 Interval history: I talked with patient. She feels okay today. She is slowly getting stronger. She is going to go to rehab once the rehab facility can do PD. Exam Narrative: General: WD/WN elderly female in NAD Heart: normal S1 and S2; no rub Or gallop Lungs: clear to auscultation Abdomen: soft, nontender, nondistended, positive bowel sounds Extremities: no cyanosis or clubbing; no edema Skin: no rash Objective Data Vital Signs Vital Signs: Vital Signs - 24 hr 08/23/21 12:54 08/23/21 13:05 08/23/21 13:15 Temperature 36.5 C Pulse Rate 68 64 63 Respiratory Rate 14 12 12 Blood Pressure 89/42 L 91/45 L 117/50 L Pulse Oximetry 99 99 99 08/23/21 13:30 08/23/21 13:52 08/23/21 14:05 Temperature 36.6 C 36.5 C Pulse Rate 65 64 64 Respiratory Rate 20 18 16 Blood Pressure 121/50 L 133/73 119/43 L Pulse Oximetry 100 95 99 08/23/21 14:35 08/23/21 16:00 08/23/21 20:00 Temperature 36.6 C Pulse Rate 65 65 60 Respiratory Rate 16 18 Blood Pressure 120/43 L Pulse Oximetry 99 99 08/23/21 20:04 08/23/21 20:28 08/24/21 00:00 Temperature 36.2 C L Pulse Rate 58 L 60 61 Respira
--- NOTE | 2021-08-24 11:37 | PM.PNNEP ---
Progress Note: A&P Assessment and Plan (1) ESRD (end stage renal disease): Code(s): N18.6 - End stage renal disease Status: Chronic Assessment and Plan: continue nightly CCPD while hospitalized patient is on Peritoneal dialysis and tolerating it well. fluid status looks good. Labs okay. continue peritoneal dialysis. I discussed with block and case maker. (2) Syncope: Onset Date: ~07/2021 Qualifiers: Syncope type: unspecified Qualified Code(s): R55 - Syncope and collapse Code(s): R55 - Syncope and collapse Status: Acute Assessment and Plan: work-up/testing noted Echo and carotid duplex results noted PT/OT as tolerated Going to rehab on discharge (3) Abdominal mass: Onset Date: ~08/2021 Code(s): R19.00 - Intra-abdominal and pelvic swelling, mass and lump, unspecified site Status: Acute Assessment and Plan: incidentally noted on CT scan of abdomen Surgery evaluation and recommendations noted GI following - s/p EGD and colonoscopy small bowel study results noted seeing Dr Barksdale (4) Anemia: Code(s): D64.9 - Anemia, unspecified Status: Chronic Assessment and Plan: PRBC transfusion on 08/13/21 Hb 10.4. (5) PVD (peripheral vascular disease): Code(s): I73.9 - Peripheral vascular disease, unspecified Status: Chronic Assessment and Plan: s/p left 1st and 2nd toe amputation arterial dopplers results noted follow-up with Vascular surgery (6) Hypertension: Code(s): I10 - Essential (primary) hypertension Status: Chronic Assessment and Plan: systolic 140 BP medication adjustments done due to #2 follow trend of hemodynamics (7) Diabetes: Code(s): E11.9 - Type 2 diabetes mellitus without complications Status: Chronic Assessment and Plan: follow accuchecks on SSI and Lantus Will continue to follow. Subjective Date/time seen: 08/24/21 11:37 Interval history: I talked with patient. She feels okay today. She is slowly getting stronger. She is going to go to rehab once the rehab facility can do PD. Exam Narrative: General: WD/WN elderly female in NAD Heart: normal S1 and S2; no rub Or gallop Lungs: clear to auscultation Abdomen: soft, nontender, nondistended, positive bowel sounds Extremities: no cyanosis or clubbing; no edema Skin: no rash Objective Data Vital Signs Vital Signs: Vital Signs - 24 hr 08/23/21 12:54 08/23/21 13:05 08/23/21 13:15 Temperature 36.5 C Pulse Rate 68 64 63 Respiratory Rate 14 12 12 Blood Pressure 89/42 L 91/45 L 117/50 L Pulse Oximetry 99 99 99 08/23/21 13:30 08/23/21 13:52 08/23/21 14:05 Temperature 36.6 C 36.5 C Pulse Rate 65 64 64 Respiratory Rate 20 18 16 Blood Pressure 121/50 L 133/73 119/43 L Pulse Oximetry 100 95 99 08/23/21 14:35 08/23/21 16:00 08/23/21 20:00 Temperature 36.6 C Pulse Rate 65 65 60 Respiratory Rate 16 18 Blood Pressure 120/43 L Pulse Oximetry 99 99 08/23/21 20:04 08/23/21 20:28 08/24/21 00:00 Temperature 36.2 C L Pulse Rate 58 L 60 61 Respiratory Rate 18 Blood Pressure 133/46 L Pulse Oximetry 99 08/24/21 04:00 08/24/21 04:43 Temperature 36.3 C L Pulse Rate 56 L 58 L Respiratory Rate 16 Blood Pressure 140/46 L Pulse Oximetry 98 Intake/Output Intake/Output: Intake & Output 08/21/21 08/22/21 08/23/21 08/24/21 23:59 23:59 23:59 23:59 Intake Total 690 1170 1400 240 Output Total 1152 618 0 Balance -036 901 0885 240 Meds/Results Medications: Active Medications Generic Name Dose Route Start Last Admin Trade Name Freq PRN Reason Stop Dose Admin Hydrocodone Bitart/Acetaminophen 1 tab 08/22/21 20:56 08/23/21 20:28 Hydrocodone/Acetaminophen (*Crx) 5-325 Mg Tablet PO 1 tab Q12H PRN Administration Pain Rated 4-6 Aspirin 81 mg 08/12/21 09:00 08/23/21 08:34
--- NOTE | 2021-08-24 12:38 | PM.DS ---
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 (2) Mesenteric mass: Code(s): K63.89 - Other specified diseases of intestine Status: Acute Assessment and Plan: Per above (3) Colon polyps: Code(s): K63.5 - Polyp of colon Status: Acute Assessment and Plan: Colon polyps removed at time of colonoscopy histology Reveals benign tubular adenoma and sessile serrated polyp. One of these had high-grade dysplasia. For this reason follow-up colonoscopy is advised in 1-2 years. (4) Cholelithiasis NOS: Code(s): K80.20 - Calculus of gallbladder without cholecystitis without obstruction Status: Acute Assessment and Plan: Stable follow-up with surgery as outpatient (5) End-stage renal disease on peritoneal dialysis: Code(s): N18.6 - End stage renal disease; Z99.2 - Dependence on renal dialysis Status: Acute Assessment and Plan: Patient requested to be switched to hemodialysis cath placement 08/23/2021 follow-up with nephrology as outpatient DS: Summary Hospital Course Hospital Course: 76-year-old female with insulin-dependent diabetes, hypertension, peripheral vascular disease, end-stage renal disease on peritoneal dialysis, and several other comorbidities who presented to the emergency department from home for evaluation of generalized weakness. Two weeks ago she had her 1st and 2nd toes amputated per Dr. Myers for reported infection and gangrene related to diabetic foot wounds. She finished her antibiotic a couple of days ago and she saw Dr. Myers in the office just yesterday at which time the wound was cleaned and rewrapped. He mentioned that the wound was not as pink as he would have liked however he was otherwise happy with the results. Patient also complained of dizziness was found to have dehydration CT scan of the abdomen showed mesenteric mass small-bowel follow-through shows negative bowel obstruction surgery was consulted Heme-Onc was consulted GI was consulted patient had colonoscopy found to have multiple polyps patient to follow-up with GI as outpatient surgery recommended further workup with octreotide scan and probable PET scan as outpatient high concern for metastatic carcinoid tumor also patient has history of ESRD on peritoneal dialysis patient requested to change to hemodialysis PermCath was placed on 08/23/2021 Patient has leukocytosis hyponatremia most most likely related to possible metastatic tumor Time Spent with Patient Time attestation: Total time spent providing and/or coordinating discharge services: 35 minutes Exam Narrative: General: Chronically ill-appearing . Respiratory: Respirations are nonlabored. Lungs are clear to auscultation. Cardiovascular: Regular rate and rhythm with S1-S2. Gastrointestinal: Abdomen is soft, nontender, and nondistended. Peritoneal dialysis catheter Skin: Warm and dry. Generalized pallor. Status post left 1st and 2nd toe amputations. Extremities: No cyanosis, clubbing, or edema. Radial pulses palpable. Neurological: Alert and oriented. Cranial nerves 2-12 are grossly intact. DS: Data Data Completed and Pending Completed studies during hospitalization: Pending at discharge 08/17/21 13:08 Surgical [PTH] Routine Labs on day of discharge: Labs from last 24 hours 08/24/21 08/23/21 08/23/21 07:47 20:20 16:26 POC Capillary Glucose 141 H 128 H 122 H 08/23/21 13:10 POC Capillary Glucose 95 Preliminary micro results at discharge
[2021-08-24] MEDS: EPOETIN ALFA-EPBX 20,000 UNITS/ML VIAL 20000 UNITS SUB-Q (12:58)
[2021-08-24] MEDS: SOLOSITE WOUND GEL 85 GM TUBE 1 APPLIC TOPICAL (13:15)
[2021-08-24 16:29] LABS: Glucose Point of Care 207 mg/dl (65-105)
[2021-08-24] MEDS: GABAPENTIN 400 MG CAPSULE PO (17:44)
[2021-08-24] MEDS: INSULIN ASPART (*BKC) 100 UNITS/ML SUB-Q (17:48)
[2021-08-24] MEDS: INSULIN GLARGINE (*BKC) 100 UNITS/ML 14 UNITS SUB-Q (18:48)
[2021-08-24] MEDS: DOCUSATE SODIUM 100 MG CAPSULE PO (20:09)
[2021-08-24] MEDS: HYDROcodone/acetaminophen (*CRX) 5-325 MG TABLET 1 TAB PO ×2 (20:31→23:21)
[2021-08-24 20:35] LABS: Glucose Point of Care 160 mg/dl (65-105)
[2021-08-25] VITALS (12 sets, daily range): BP systolic 94–127; BP diastolic 39–51; PULSE 63–87; RESP 16–18; TEMP 36.1–37.1; O2SAT 97–98
[2021-08-25] MEDS: LEVOTHYROXINE SODIUM 75 MCG TABLET PO (05:33)
[2021-08-25 07:54] LABS: Glucose Point of Care 177 mg/dl (65-105)
[2021-08-25] MEDS: CHOLECALCIFEROL 1,000 UNITS TABLET 2000 UNITS PO (08:18)
[2021-08-25] MEDS: MIDODRINE HCL 2.5 MG TABLET 5 MG PO ×3 (08:18→16:52)
[2021-08-25] MEDS: ISOSORBIDE MONONITRATE 30 MG TAB.ER.24H PO (08:18)
[2021-08-25] MEDS: POTASSIUM CHLORIDE 20 MEQ TABLET.ER PO (08:18)
[2021-08-25] MEDS: THERAPEUTIC MULTIVITAMINS/MINERALS TAB (*BKC) 1 TABLET PO (08:18)
[2021-08-25] MEDS: SEVELAMER CARBONATE 800 MG TABLET 3200 MG PO ×3 (08:18→16:51)
[2021-08-25] MEDS: carvediloL 3.125 MG TABLET PO ×2 (08:18→20:10)
[2021-08-25] MEDS: DOCUSATE SODIUM 100 MG CAPSULE PO ×2 (08:18→20:10)
[2021-08-25] MEDS: OMEGA 3 POLYUNSAT FATTY ACIDS 1 GM CAP PO (08:18)
[2021-08-25] MEDS: SERTRALINE HCL 50 MG TABLET PO (08:18)
[2021-08-25] MEDS: guanFACINE HCL 1 MG TABLET PO (08:19)
[2021-08-25] MEDS: ASPIRIN 81 MG ENTERIC TABLET PO (08:19)
[2021-08-25] MEDS: FERROUS SULFATE 324 MG TABLET PO (08:19)
[2021-08-25] MEDS: polyethylene glycoL 3350 17 GM POWD.PACK PO (08:19)
[2021-08-25] MEDS: ROSUVASTATIN 10 MG TABLET 40 MG PO (08:19)
[2021-08-25] MEDS: INSULIN GLARGINE (*BKC) 100 UNITS/ML 36 UNITS SUB-Q (08:26)
--- NOTE | 2021-08-25 10:20 | P.PNNP_ITS ---
Progress Note: A&P Assessment and Plan (1) ESRD (end stage renal disease): Code(s): N18.6 - End stage renal disease Status: Chronic Assessment and Plan: * continue nightly CCPD while hospitalized * patient is on Peritoneal dialysis and tolerating it well. * fluid status looks good. * Labs okay. * continue peritoneal dialysis. (2) Syncope: Onset Date: ~07/2021 Qualifiers: Syncope type: unspecified Qualified Code(s): R55 - Syncope and collapse Code(s): R55 - Syncope and collapse Status: Acute Assessment and Plan: * work-up/testing noted * Echo and carotid duplex results noted * PT/OT as tolerated * Going to rehab on discharge (3) Abdominal mass: Onset Date: ~08/2021 Code(s): R19.00 - Intra-abdominal and pelvic swelling, mass and lump, unspecified site Status: Acute Assessment and Plan: * incidentally noted on CT scan of abdomen * Surgery evaluation and recommendations noted * GI following - s/p EGD and colonoscopy * small bowel study results noted * seeing Dr Barksdale (4) Anemia: Code(s): D64.9 - Anemia, unspecified Status: Chronic Assessment and Plan: * PRBC transfusion on 08/13/21 * Hb 10.4. * check again tomorrow (5) PVD (peripheral vascular disease): Code(s): I73.9 - Peripheral vascular disease, unspecified Status: Chronic Assessment and Plan: * s/p left 1st and 2nd toe amputation * arterial dopplers results noted * follow-up with Vascular surgery (6) Hypertension: Code(s): I10 - Essential (primary) hypertension Status: Chronic Assessment and Plan: * systolic 140 * BP medication adjustments done due to #2 * follow trend of hemodynamics (7) Diabetes: Code(s): E11.9 - Type 2 diabetes mellitus without complications Status: Chronic Assessment and Plan: * Accu-Cheks and sliding scale per hospitalist Additional Plan 1. Subjective Date/time seen: 08/25/21 10:20 Interval history: I talked with patient. She feels okay today. On PD and tolerating it well. Fluid is clear. Volume status looks okay. She was seen at 7:45 a.m. Exam Narrative: General: WD/WN elderly female in NAD Heart: normal S1 and S2; no rub Or gallop Lungs: clear bilaterally Abdomen: soft, nontender, nondistended, positive bowel sounds Extremities: no cyanosis or clubbing; no edema Skin: no rash or subcu nodules Objective Data Vital Signs Vital Signs: Vital Signs - 24 hr 08/24/21 12:00 08/24/21 14:17 08/24/21 16:00 Temperature 35.6 C L Pulse Rate 69 67 61 Respiratory Rate 20 Blood Pressure 142/35 H Pulse Oximetry 100 08/24/21 20:00 08/24/21 20:10 08/24/21 20:18 Temperature 36.4 C L Pulse Rate 69 67 67 Respiratory Rate 16 Blood Pressure 156/54 H Pulse Oximetry 97 08/24/21 20:22 08/24/21 22:17 08/25/21 00:00 Temperature Pulse Rate 70 Respiratory Rate Blood Pressure 149/58 H Pulse Oximetry 94 08/25/21 04:00 08/25/21 05:14 08/25/21 10:10 Temperature 36.1 C L Pulse Rate 63 66 Respiratory Rate 16 Blood Pressure 125/45
--- NOTE | 2021-08-25 10:20 | PM.PNNEP ---
Progress Note: A&P Assessment and Plan (1) ESRD (end stage renal disease): Code(s): N18.6 - End stage renal disease Status: Chronic Assessment and Plan: continue nightly CCPD while hospitalized patient is on Peritoneal dialysis and tolerating it well. fluid status looks good. Labs okay. continue peritoneal dialysis. (2) Syncope: Onset Date: ~07/2021 Qualifiers: Syncope type: unspecified Qualified Code(s): R55 - Syncope and collapse Code(s): R55 - Syncope and collapse Status: Acute Assessment and Plan: work-up/testing noted Echo and carotid duplex results noted PT/OT as tolerated Going to rehab on discharge (3) Abdominal mass: Onset Date: ~08/2021 Code(s): R19.00 - Intra-abdominal and pelvic swelling, mass and lump, unspecified site Status: Acute Assessment and Plan: incidentally noted on CT scan of abdomen Surgery evaluation and recommendations noted GI following - s/p EGD and colonoscopy small bowel study results noted seeing Dr Barksdale (4) Anemia: Code(s): D64.9 - Anemia, unspecified Status: Chronic Assessment and Plan: PRBC transfusion on 08/13/21 Hb 10.4. check again tomorrow (5) PVD (peripheral vascular disease): Code(s): I73.9 - Peripheral vascular disease, unspecified Status: Chronic Assessment and Plan: s/p left 1st and 2nd toe amputation arterial dopplers results noted follow-up with Vascular surgery (6) Hypertension: Code(s): I10 - Essential (primary) hypertension Status: Chronic Assessment and Plan: systolic 140 BP medication adjustments done due to #2 follow trend of hemodynamics (7) Diabetes: Code(s): E11.9 - Type 2 diabetes mellitus without complications Status: Chronic Assessment and Plan: Accu-Cheks and sliding scale per hospitalist Additional Plan 1. Subjective Date/time seen: 08/25/21 10:20 Interval history: I talked with patient. She feels okay today. On PD and tolerating it well. Fluid is clear. Volume status looks okay. She was seen at 7:45 a.m. Exam Narrative: General: WD/WN elderly female in NAD Heart: normal S1 and S2; no rub Or gallop Lungs: clear bilaterally Abdomen: soft, nontender, nondistended, positive bowel sounds Extremities: no cyanosis or clubbing; no edema Skin: no rash or subcu nodules Objective Data Vital Signs Vital Signs: Vital Signs - 24 hr 08/24/21 12:00 08/24/21 14:17 08/24/21 16:00 Temperature 35.6 C L Pulse Rate 69 67 61 Respiratory Rate 20 Blood Pressure 142/35 H Pulse Oximetry 100 08/24/21 20:00 08/24/21 20:10 08/24/21 20:18 Temperature 36.4 C L Pulse Rate 69 67 67 Respiratory Rate 16 Blood Pressure 156/54 H Pulse Oximetry 97 08/24/21 20:22 08/24/21 22:17 08/25/21 00:00 Temperature Pulse Rate 70 Respiratory Rate Blood Pressure 149/58 H Pulse Oximetry 94 08/25/21 04:00 08/25/21 05:14 08/25/21 10:10 Temperature 36.1 C L Pulse Rate 63 66 Respiratory Rate 16 Blood Pressure 125/45 L 121/51 L Pulse Oximetry 98 08/25/21 10:12 Temperature Pulse Rate Respiratory Rate Blood Pressure 98/39 L Pulse Oximetry Intake/Output Intake/Output: Intake & Output 08/22/21 08/23/21 08/24/21 08/25/21 23:59 23:59 23:59 23:59 Intake Total 1170 1400 1010 340 Output Total 618 0 Balance 552 1400 1010 340 Meds/Results Medications: Active Medications Generic Name Dose Route Start Last Admin Trade Name Freq PRN Reason Stop Dose Admin Hydrocodone Bitart/Acetaminophen 1 tab 08/22/21 20:56 08/24/21 20:31 Hydrocodone/Acetaminophen (*Crx) 5-325 Mg Tablet PO 1 tab Q12H PRN Administration Pain Rated 4-6 Aspirin 81 mg 08/12/21 09:00 08/25/21 08:19 Aspirin 81 Mg Enteric Tablet PO 81 mg DAILY OSIEL Administration Carvedilol 3.
[2021-08-25 11:54] LABS: Glucose Point of Care 176 mg/dl (65-105)
--- NOTE | 2021-08-25 16:30 | PM.IMPN ---
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 This was discussed again thoroughly with the patient and family (2) Mesenteric mass: Code(s): K63.89 - Other specified diseases of intestine Status: Acute Assessment and Plan: Per above (3) Colon polyps: Code(s): K63.5 - Polyp of colon Status: Acute Assessment and Plan: Colon polyps removed at time of colonoscopy histology Reveals benign tubular adenoma and sessile serrated polyp. One of these had high-grade dysplasia. For this reason follow-up colonoscopy is advised in 1-2 years. (4) Cholelithiasis NOS: Code(s): K80.20 - Calculus of gallbladder without cholecystitis without obstruction Status: Acute Assessment and Plan: Stable follow-up with surgery as outpatient (5) End-stage renal disease on peritoneal dialysis: Code(s): N18.6 - End stage renal disease; Z99.2 - Dependence on renal dialysis Status: Acute Assessment and Plan: Patient requested to be switched to hemodialysis cath placement 08/23/2021 follow-up with nephrology as outpatient. Not able to use the hemodialysis catheter yet for 2 weeks and hence will remain on peritoneal catheter until then (6) Peripheral vascular disease: Onset Date: Unknown Code(s): I73.9 - Peripheral vascular disease, unspecified Status: Acute (7) Syncope: Onset Date: ~07/2021 Qualifiers: Syncope type: unspecified Qualified Code(s): R55 - Syncope and collapse Code(s): R55 - Syncope and collapse Status: Acute Assessment and Plan: Syncope multifactorial probably autonomic secondary to orthostatic hypotension concern for metastatic carcinoid tumor Rola Subjective Date/time seen: 08/25/21 16:30 Interval history: HPI: 76-year-old female with insulin-dependent diabetes, hypertension, peripheral vascular disease, end-stage renal disease on peritoneal dialysis, and several other comorbidities who presented to the emergency department from home for evaluation of generalized weakness. Two weeks ago she had her 1st and 2nd toes amputated per Dr. Myers for reported infection and gangrene related to diabetic foot wounds. She finished her antibiotic a couple of days ago and she saw Dr. Myers in the office just yesterday at which time the wound was cleaned and rewrapped. He mentioned that the wound was not as pink as he would have liked however he was otherwise happy with the results. Patient also complained of dizziness was found to have dehydration CT scan of the abdomen showed mesenteric mass small-bowel follow-through shows negative bowel obstruction surgery was consulted Heme-Onc was consulted GI was consulted patient had colonoscopy found to have multiple polyps patient to follow-up with GI as outpatient surgery recommended further workup with octreotide scan and probable PET scan as outpatient high concern for metastatic carcinoid tumor also patient has history of ESRD on peritoneal dialysis patient requested to change to hemodialysis PermCath was placed on 08/23/2021 Patient has leukocytosis hyponatremia most most likely related to possible metastatic tumor 08/25/2021 feels well. Plan to go to nursing facility however arrangements in process in his needs could not be discharged yesterday. No shortness of breath chest pain. Blood pressure been fluctuant. Review of Systems Review of Systems: All systems reviewed & are unremarkable except as noted in HPI and below Exam Narrative: General: Chronically ill-appearing . Will in acute distress Respiratory: Respirations are
[2021-08-25 16:36] LABS: Glucose Point of Care 185 mg/dl (65-105)
[2021-08-25] MEDS: INSULIN GLARGINE (*BKC) 100 UNITS/ML 14 UNITS SUB-Q (16:52)
[2021-08-25] MEDS: GABAPENTIN 400 MG CAPSULE PO (16:52)
[2021-08-25] MEDS: HYDROcodone/acetaminophen (*CRX) 5-325 MG TABLET 1 TAB PO (20:12)
[2021-08-25 23:32] LABS: Glucose Point of Care 197 mg/dl (65-105)
[2021-08-26] VITALS (8 sets, daily range): BP systolic 122–164; BP diastolic 45–46; PULSE 73–78; RESP 16; TEMP 36.4–36.9; O2SAT 98–99
[2021-08-26 05:58] LABS: Hematocrit 31.8 % (37.0-47.0); Hemoglobin 9.7 g/dL (12.0-15.0); Mean Corpuscular HGB Conc 30.5 g/dl (32-36); Mean Corpuscular Hemoglobin 31.7 pg (26-34); Mean Corpuscular Volume 103.9 fl (80-100); Mean Platelet Volume 9.2 fl (7.4-10.4); Platelet Count Result 179 k/mm3 (150-375); Red Blood Count 3.06 M/mm3 (4.2-5.4); Red Cell Distribution Width 16.1 % (11.5-14.5); White Blood Count 14.5 K/mm3 (4.5-10.0)
[2021-08-26 06:11] LABS: Albumin Level 2.6 g/dL (3.5-5.1); Alkaline Phosphatase 36 U/L (38-126); Anion Gap 7 mmol/L (8-16); Aspartate Amino Transferase 23 U/L (14-36); Bilirubin,Total 0.2 mg/dL (0.2-1.3); Blood Urea Nitrogen 31 mg/dL (7-17); Calcium 7.9 mg/dL (8.4-10.2); Carbon Dioxide 26 mmol/L (22-30); Chloride 103 mmol/L (98-107); Estimated CRCL calculation 7 ml/min; Estimated Glomerular Filt Rate 8; Glucose 104 mg/dL (65-110); Phosphorus 4.7 mg/dL (2.5-4.5); Potassium 3.4 mmol/L (3.4-5.0); Sodium 136 mmol/L (137-145)
[2021-08-26 06:18] LABS: Alanine Aminotransferase < 6 U/L (6-35)
[2021-08-26] MEDS: LEVOTHYROXINE SODIUM 75 MCG TABLET PO (06:21)
[2021-08-26 07:50] LABS: Glucose Point of Care 105 mg/dl (65-105)
[2021-08-26] MEDS: ROSUVASTATIN 10 MG TABLET 40 MG PO (08:52)
[2021-08-26] MEDS: CHOLECALCIFEROL 1,000 UNITS TABLET 2000 UNITS PO (08:52)
[2021-08-26] MEDS: THERAPEUTIC MULTIVITAMINS/MINERALS TAB (*BKC) 1 TABLET PO (08:52)
[2021-08-26] MEDS: polyethylene glycoL 3350 17 GM POWD.PACK PO (08:52)
[2021-08-26] MEDS: DOCUSATE SODIUM 100 MG CAPSULE PO (08:52)
[2021-08-26] MEDS: OMEGA 3 POLYUNSAT FATTY ACIDS 1 GM CAP PO (08:52)
[2021-08-26] MEDS: FERROUS SULFATE 324 MG TABLET PO (08:52)
[2021-08-26] MEDS: MIDODRINE HCL 2.5 MG TABLET 5 MG PO ×2 (08:52→12:04)
[2021-08-26] MEDS: SERTRALINE HCL 50 MG TABLET PO (08:52)
[2021-08-26] MEDS: SEVELAMER CARBONATE 800 MG TABLET 3200 MG PO ×2 (08:53→12:04)
[2021-08-26] MEDS: POTASSIUM CHLORIDE 20 MEQ TABLET.ER PO (08:53)
[2021-08-26] MEDS: ASPIRIN 81 MG ENTERIC TABLET PO (08:53)
[2021-08-26] MEDS: carvediloL 3.125 MG TABLET PO (08:53)
[2021-08-26] MEDS: INSULIN GLARGINE (*BKC) 100 UNITS/ML 36 UNITS SUB-Q (08:59)
[2021-08-26] MEDS: SOLOSITE WOUND GEL 85 GM TUBE 1 APPLIC TOPICAL (09:01)
--- NOTE | 2021-08-26 10:06 | P.PNNP_ITS ---
Progress Note: A&P Assessment and Plan (1) ESRD (end stage renal disease): Code(s): N18.6 - End stage renal disease Status: Chronic Assessment and Plan: * continue nightly CCPD while hospitalized * patient is on Peritoneal dialysis and tolerating it well. * The patient is doing very well on peritoneal dialysis. Down the line she wants to switch to hemodialysis because her is burned out on doing her PD. So we do not need to change to hemodialysis right away because [facility]. 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 She is going to get this evaluated as an outpatient and if she has surgery on this we would change to hemodialysis at that point. * Not knowing when this evaluation is going to be complete it is probably prudent to keep the hemodialysis catheter in for now until that decision is made. * [facility] is working with the [facility] to train them to do peritoneal dialysis. Originally the training was going to take place today after the contract was signed but the [facility] has not signed the contract yet. So [facility] cannot initiate training yet. * I reached out to [facility]. Possibly an option would be to do backup hemodialysis using the catheter in till the [facility] is trained to do peritoneal dialysis and then they can continue with PD. I have not heard back from [facility] as of yet. (2) Syncope: Onset Date: ~07/2021 Qualifiers: Syncope type: unspecified Qualified Code(s): R55 - Syncope and collapse Code(s): R55 - Syncope and collapse Status: Acute Assessment and Plan: * No recurrence. (3) Abdominal mass: Onset Date: ~08/2021 Code(s): R19.00 - Intra-abdominal and pelvic swelling, mass and lump, unspecified site Status: Acute Assessment and Plan: * incidentally noted on CT scan of abdomen * Surgery evaluation and recommendations noted * GI following - s/p EGD and colonoscopy * small bowel study results noted * seeing Dr Barksdale (4) Anemia: Code(s): D64.9 - Anemia, unspecified Status: Chronic Assessment and Plan: * PRBC transfusion on 08/13/21 * Hb 9.7. * On Epogen [id number] 3 times a week. (5) PVD (peripheral vascular disease): Code(s): I73.9 - Peripheral vascular disease, unspecified Status: Chronic Assessment and Plan: * s/p left 1st and 2nd toe amputation * arterial dopplers results noted * follow-up with Vascular surgery (6) Hypertension: Code(s): I10 - Essential (primary) hypertension Status: Chronic Assessment and Plan: * systolic 120 * BP medication adjustments done due to #2 * follow trend of hemodynamics (7) Diabetes: Code(s): E11.9 - Type 2 diabetes mellitus without complications Status: Chronic Assessment and Plan: * Accu-Cheks and sliding scale per hospitalist Additional Plan . Subjective Date/time seen: 08/26/21 10:06 Interval history: She feels okay today. On PD and tolerating it well. Fluid is clear. Volume status looks okay. electrolytes look okay as well. Exam Narrative: General: WD/WN elderly female in NAD Heart: normal S1 and S2; no rub or gallop Lungs: clear bilaterally Abdomen: soft, nontender, nondistended, positive bowel sounds Extremities: no cyanosis or clubbing; no edema Skin: no rash Objective Data
--- NOTE | 2021-08-26 10:06 | PM.PNNEP ---
Progress Note: A&P Assessment and Plan (1) ESRD (end stage renal disease): Code(s): N18.6 - End stage renal disease Status: Chronic Assessment and Plan: continue nightly CCPD while hospitalized patient is on Peritoneal dialysis and tolerating it well. The patient is doing very well on peritoneal dialysis. Down the line she wants to switch to hemodialysis because her is burned out on doing her PD. So we do not need to change to hemodialysis right away because [facility]. 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 She is going to get this evaluated as an outpatient and if she has surgery on this we would change to hemodialysis at that point. Not knowing when this evaluation is going to be complete it is probably prudent to keep the hemodialysis catheter in for now until that decision is made. [facility] is working with the [facility] to train them to do peritoneal dialysis. Originally the training was going to take place today after the contract was signed but the [facility] has not signed the contract yet. So [facility] cannot initiate training yet. I reached out to [facility]. Possibly an option would be to do backup hemodialysis using the catheter in till the [facility] is trained to do peritoneal dialysis and then they can continue with PD. I have not heard back from [facility] as of yet. (2) Syncope: Onset Date: ~07/2021 Qualifiers: Syncope type: unspecified Qualified Code(s): R55 - Syncope and collapse Code(s): R55 - Syncope and collapse Status: Acute Assessment and Plan: No recurrence. (3) Abdominal mass: Onset Date: ~08/2021 Code(s): R19.00 - Intra-abdominal and pelvic swelling, mass and lump, unspecified site Status: Acute Assessment and Plan: incidentally noted on CT scan of abdomen Surgery evaluation and recommendations noted GI following - s/p EGD and colonoscopy small bowel study results noted seeing Dr Barksdale (4) Anemia: Code(s): D64.9 - Anemia, unspecified Status: Chronic Assessment and Plan: PRBC transfusion on 08/13/21 Hb 9.7. On Epogen [id number] 3 times a week. (5) PVD (peripheral vascular disease): Code(s): I73.9 - Peripheral vascular disease, unspecified Status: Chronic Assessment and Plan: s/p left 1st and 2nd toe amputation arterial dopplers results noted follow-up with Vascular surgery (6) Hypertension: Code(s): I10 - Essential (primary) hypertension Status: Chronic Assessment and Plan: systolic 120 BP medication adjustments done due to #2 follow trend of hemodynamics (7) Diabetes: Code(s): E11.9 - Type 2 diabetes mellitus without complications Status: Chronic Assessment and Plan: Accu-Cheks and sliding scale per hospitalist Additional Plan . Subjective Date/time seen: 08/26/21 10:06 Interval history: She feels okay today. On PD and tolerating it well. Fluid is clear. Volume status looks okay. electrolytes look okay as well. Exam Narrative: General: WD/WN elderly female in NAD Heart: normal S1 and S2; no rub or gallop Lungs: clear bilaterally Abdomen: soft, nontender, nondistended, positive bowel sounds Extremities: no cyanosis or clubbing; no edema Skin: no rash Objective Data Vital Signs Vital Signs: Vital Signs - 24 hr 08/25/21 10:10 08/25/21 10:12 08/25/21 12:00 Temperature Pulse Rate 66 Respiratory Rate Blood Pressure 121/51 L 98/39 L Pulse Oximetry 08/25/21 14:00 08/25/21 16:00 08/25/21 20:00 Temperature 37.1 C Pulse Rate 66 66 87 Respiratory Rate 16 Blood Pressure 94/40 L Pulse Oximetry 98 08/25/21 20:05 08/25/21 20:10 08/26/21 00:00 Temperature 36.6 C Pulse Rate 87 87 76 Respiratory Rate 18 Blood Pr
[2021-08-26 11:37] LABS: Glucose Point of Care 148 mg/dl (65-105)
--- NOTE | 2021-08-26 11:40 | PM.DS ---
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 fu with Dr. Barksdale (2) Mesenteric mass: Code(s): K63.89 - Other specified diseases of intestine Status: Acute Assessment and Plan: Per above (3) Colon polyps: Code(s): K63.5 - Polyp of colon Status: Acute Assessment and Plan: Colon polyps removed at time of colonoscopy histology Reveals benign tubular adenoma and sessile serrated polyp. One of these had high-grade dysplasia. For this reason follow-up colonoscopy is advised in 1-2 years. FU with GI (4) Cholelithiasis NOS: Code(s): K80.20 - Calculus of gallbladder without cholecystitis without obstruction Status: Acute Assessment and Plan: Stable follow-up with surgery as outpatient (5) End-stage renal disease on peritoneal dialysis: Code(s): N18.6 - End stage renal disease; Z99.2 - Dependence on renal dialysis Status: Acute Assessment and Plan: Patient requested to be switched to hemodialysis cath placement 08/23/2021 follow-up with nephrology as outpatient. PD catheter in situ but eventually plans to have fistula placed and switch to HD. since arrangements for PD managmeent at [facility] could not happen, she is getting switched to start HD MWF or as scheduled at [facility] through HD catheter on left chest wall. (6) Peripheral vascular disease: Onset Date: Unknown Code(s): I73.9 - Peripheral vascular disease, unspecified Status: Acute Assessment and Plan: follows with Dr. Myers (7) Syncope: Onset Date: ~07/2021 Qualifiers: Syncope type: unspecified Qualified Code(s): R55 - Syncope and collapse Code(s): R55 - Syncope and collapse Status: Acute Assessment and Plan: Syncope multifactorial probably autonomic secondary to orthostatic hypotension concern for metastatic carcinoid tumor adjusted her bp medications. DS: Summary Hospital Course Hospital Course: see above 76-year-old female with insulin-dependent diabetes, hypertension, peripheral vascular disease, end-stage renal disease on peritoneal dialysis, and several other comorbidities who presented to the emergency department from home for evaluation of generalized weakness. Two weeks ago she had her 1st and 2nd toes amputated per Dr. Myers for reported infection and gangrene related to diabetic foot wounds. She finished her antibiotic a couple of days ago and she saw Dr. Myers in the office just yesterday at which time the wound was cleaned and rewrapped. He mentioned that the wound was not as pink as he would have liked however he was otherwise happy with the results. Patient also complained of dizziness was found to have dehydration CT scan of the abdomen showed mesenteric mass small-bowel follow-through shows negative bowel obstruction surgery was consulted Heme-Onc was consulted GI was consulted patient had colonoscopy found to have multiple polyps patient to follow-up with GI as outpatient surgery recommended further workup with octreotide scan and probable PET scan as outpatient high concern for metastatic carcinoid tumor also patient has history of ESRD on peritoneal dialysis patient requested to change to hemodialysis PermCath was placed on 08/23/2021. Patient eventually arrange for outpatient hemodialysis Sunday further rehabilitation at the rehabilitation center was arranged discharged in a stable condition. Patient has leukocytosis hyponatremia most most likely related to possible metastatic tumor. S
[2021-08-26] MEDS: EPOETIN ALFA-EPBX 20,000 UNITS/ML VIAL 20000 UNITS SUB-Q (12:08)
[2021-08-26 12:20] LABS: EDCOVIDSCREEN Negative (Negative)
[2021-09-01 17:32] LABS: Serotonin <10 ng/mL (56-244)
--- NOTE | 2021-09-29 07:23 | PM.IMPN ---
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 Follow-up with Dr. Barksdale (2) Mesenteric mass: Code(s): K63.89 - Other specified diseases of intestine Status: Acute Assessment and Plan: Per above (3) Colon polyps: Code(s): K63.5 - Polyp of colon Status: Acute Assessment and Plan: Colon polyps removed at time of colonoscopy histology Reveals benign tubular adenoma and sessile serrated polyp. One of these had high-grade dysplasia. For this reason follow-up colonoscopy is advised in 1-2 years. Follow-up with GI (4) Cholelithiasis NOS: Code(s): K80.20 - Calculus of gallbladder without cholecystitis without obstruction Status: Acute Assessment and Plan: Stable follow-up with surgery as outpatient (5) End-stage renal disease on peritoneal dialysis: Code(s): N18.6 - End stage renal disease; Z99.2 - Dependence on renal dialysis Status: Acute Assessment and Plan: Patient requested to be switched to hemodialysis cath placement 08/23/2021 follow-up with nephrology as outpatient. PD catheter in situ but eventually plans to have fistula placed and switch to HD. since arrangements for PD managmeent at [facility] could not happen, she is getting switched to start HD MWF or as scheduled at [facility] through HD catheter on left chest wall. (6) Peripheral vascular disease: Onset Date: Unknown Code(s): I73.9 - Peripheral vascular disease, unspecified Status: Acute Assessment and Plan: follows with Dr. Myers (7) Syncope: Onset Date: ~07/2021 Qualifiers: Syncope type: unspecified Qualified Code(s): R55 - Syncope and collapse Code(s): R55 - Syncope and collapse Status: Acute Assessment and Plan: Syncope multifactorial probably autonomic secondary to orthostatic hypotension concern for metastatic carcinoid tumor adjusted her bp medications. Additional Plan CXR reviewed, free air likely associated w PD 08/18/21 EGD and colonoscopy essentially benign, small-bowel follow-through showed ileal stricture. Surgery recommendation no bowel obstruction, no surgical intervention necessary. Syncope multifactorial probably autonomic secondary to orthostatic hypotension concern for metastatic carcinoid tumor Treated with IV hydration Resolved Subjective Date/time seen: 08/21/21 09:30am Interval history: No overnight events noted. No chest pain or shortness of breath. No nausea, vomiting or diarrhea. No fevers or chills. Review of Systems Review of Systems: 12 point review of systems was assessed and was negative except as noted in the HPI Exam Narrative: General: Chronically ill-appearing, no acute distress Respiratory: Respirations are nonlabored. Lungs are clear to auscultation. Cardiovascular: Regular rate and rhythm with S1-S2. Gastrointestinal: Abdomen is soft, nontender, and nondistended. Peritoneal dialysis catheter in situ Skin: Warm and dry. Generalized pallor. Status post left 1st and 2nd toe amputations. wound with scab and no active infection Extremities: No cyanosis, clubbing, or edema. Radial pulses palpable. Neurological: Alert and oriented. Cranial nerves 2-12 are grossly intact. Objective Data Meds/Results Radiology Results: ITS Impressions Head CT 08/11/21 12:03 IMPRESSION: 1. No acute intracranial process. 2. Age-related changes including mild diffuse on loss and mild to moderate scattered white matter hypoattenuation consistent with chronic small vessel ischemic disease. Abdomen/Pelvis CT 08/13/21 12:40 IMPRESSI
== END 2021-08-26 15:25 | DRG 374 ==
LOC: ANHED 15:29 → ANH3MEDSUR 17:51 → ANH3MED 19:23
PROVIDERS: Family Medicine; Hospitalist; Internal Medicine Gastroenterology; Internal Medicine Hematology & Oncology; Internal Medicine Nephrology; Physician Assistant; Student in an Organized Health Care Education/Training Program; Surgery; Admitting Provider Internal Medicine; Emergency Provider Emergency Medicine; PCP Internal Medicine; Visit Provider Internal Medicine
PROC: 0DJ08ZZ Inspection of Upper Intestinal Tract, Via Natural or Artificial Opening Endoscopic (ICD-10-PCS; CPT 43235; principal; 2021-08-17 12:30)
PROC: 0JH63XZ Insertion of Tunneled Vascular Access Device into Chest Subcutaneous Tissue and Fascia, Percutaneous Approach (ICD-10-PCS; CPT 36908; principal; 2021-08-23 12:00)
DX: C7B.04 Secondary carcinoid tumors of peritoneum (principal); N18.6 End stage renal disease; I13.2 Hypertensive heart and chronic kidney disease with heart failure and with stage 5 chronic kidney disease, or end stage renal disease; E87.1 Hypo-osmolality and hyponatremia; Z20.822 Contact with and (suspected) exposure to COVID-19; I50.9 Heart failure, unspecified; I25.10 Atherosclerotic heart disease of native coronary artery without angina pectoris; E11.22 Type 2 diabetes mellitus with diabetic chronic kidney disease; E11.40 Type 2 diabetes mellitus with diabetic neuropathy, unspecified; Z86.73 Personal history of transient ischemic attack (TIA), and cerebral infarction without residual deficits; E11.51 Type 2 diabetes mellitus with diabetic peripheral angiopathy without gangrene; Z99.2 Dependence on renal dialysis; E78.2 Mixed hyperlipidemia; E03.9 Hypothyroidism, unspecified; D63.1 Anemia in chronic kidney disease; I95.1 Orthostatic hypotension; F32.9 Major depressive disorder, single episode, unspecified; I65.23 Occlusion and stenosis of bilateral carotid arteries; Z79.899 Other long term (current) drug therapy; Z80.0 Family history of malignant neoplasm of digestive organs; Z82.49 Family history of ischemic heart disease and other diseases of the circulatory system; R19.00 Intra-abdominal and pelvic swelling, mass and lump, unspecified site; K80.20 Calculus of gallbladder without cholecystitis without obstruction; Z83.3 Family history of diabetes mellitus; Z79.82 Long term (current) use of aspirin; Z79.4 Long term (current) use of insulin; Z95.5 Presence of coronary angioplasty implant and graft; Z87.891 Personal history of nicotine dependence; K64.8 Other hemorrhoids; K57.30 Diverticulosis of large intestine without perforation or abscess without bleeding; D12.2 Benign neoplasm of ascending colon; N25.0 Renal osteodystrophy; I45.5 Other specified heart block; E86.0 Dehydration; Z89.412 Acquired absence of left great toe
CPT/HCPCS: 36415; 36430; 70450; 71045; 71046; 74177; 74250; 77001; 80048; 80053; 80069; 81001; 82306; 82330; 82533; 82607; 82746; 82948; 83036; 83540; 83550; 83605; 83735; 84100; 84132; 84145; 84260; 84443; 85014; 85018; 85025; 85027; 85046; 85652; 86140; 86316; 86850; 86900; 86901; 86920; 87040; 87086; 87426; 87493; 88305; 90945; 93005; 93306; 93880; 93923; 93971; 96361; 96365; 96366; 96367; 96375; 96376; 97110; 97161; 97166; 97530; 97535; 99285; A9270; C1750; C9803; G0378; J0290; J0690; J0696; J1580; J1644; J1815; J2001; J2370; J2405; J2543; J2704; J7030; J7040; J7050; P9016; Q5105; Q9967; U0003; U0005

== ENCOUNTER 2021-11-08 15:03 | Outpatient (CLI) | payer MEDICARE, SELFPAY ==
--- NOTE | ~2021-11-08 | CT_ITS ---
EXAMINATION:CT chest high resolution wo co DATE: 11/08/2021 15:27 INDICATION: Lung nodule. TECHNIQUE: Computed tomography (CT) of the chest was performed without intravenous contrast. Automate d exposure control and iterative reconstruction technique were employed. The dose-length product (DLP ) was 129.60 mGy-cm. COMPARISON: CT abdomen and pelvis 08/13/2021, thyroid ultrasound 11/12/2021, neck CTA 01/29/2021 FINDINGS: There is mild emphysema. There is mild atelectasis in the lungs. There is a 5 mm nodule in right upper lobe. There is a 1.5 cm part solid nodule in right upper lobe, stable from 01/29/21. No p leural effusion. The heart size is normal. There are coronary artery calcifications. No pericardial e ffusion. A left internal jugular central venous catheter is seen with tip at the superior cavoatrial junction. There are gallstones in the gallbladder, which is normal in size. There is a 2.4 cm nodule in left thyroid lobe. There is mild thoracic spondylosis. IMPRESSION: 1. Lung nodules, likely benign. Noncontrast chest CT is recommended in one year. 2. 2.4 cm nodule in left thyroid lobe. Ultrasound-guided fine-needle aspiration is recommended. Reviewed, dictated and finalized at location A. IMPRESSION: 1. Lung nodules, likely benign. Noncontrast chest CT is recommended in one year . 2. 2.4 cm nodule in left thyroid lobe. Ultrasound-guided fine-needle aspiration is recommended.
--- NOTE | ~2021-11-08 | US_ITS ---
EXAMINATION: US thyroid DATE: 11/08/2021 15:43 INDICATION: Thyroid nodule TECHNIQUE: Multiple ultrasound images of the thyroid were obtained. COMPARISON: None. FINDINGS: The right thyroid lobe measures 2.7 x 0.8 x 0.8 cm. Likely benign 4 mm cystic TI RADS 1 nodule in the right thyroid lobe. The left thyroid lobe measures 3.6 x 1.6 x 1.7 cm. 2.4 cm wider than tall solid hypoechoic nodule with smooth margins and without echogenic foci in the left thyroid lobe. (TI-RADS 4, moderately suspicious , FNA if >=1.5 cm, annual followup is >=1 cm). There is normal echotexture, echogenicity and vascular flow throughout the remaining 50 thyroid gland. IMPRESSION: 1. 2.4 cm TI RADS 4 left thyroid nodule for which ultrasound-guided biopsy would be recommended. Reviewed, dictated and finalized at location A. IMPRESSION: 1. 2.4 cm TI RADS 4 left thyroid nodule for which ultrasound-guided biopsy woul d be recommended.
== END 2021-11-08 15:04 | disposition home or self-care (01) ==
PROVIDERS: PCP Internal Medicine; Visit Provider Nurse Practitioner
DX: R93.89 Abnormal findings on diagnostic imaging of other specified body structures (principal); E04.1 Nontoxic single thyroid nodule; R91.8 Other nonspecific abnormal finding of lung field
CPT/HCPCS: 71250; 76536

== ENCOUNTER 2021-12-06 10:14 | Outpatient (CLI) | payer MEDICARE, SELFPAY ==
--- NOTE | ~2021-12-06 | US_ITS ---
. EXAMINATION: US FNA w image guidance DATE: 12/06/2021 11:27 INDICATION: Nontoxic single thyroid nodule. TECHNIQUE: The procedure and its benefits and risks were discussed with the patient. Risks specifically discusse d included bleeding. The patient verbalized understanding of the risks and agreed to proceed. The nec k was prepped and draped in the usual sterile manner. 1% lidocaine was used for local anesthesia. 6 passes were made with a 25G needle into the lesion under ultrasound guidance. There were no immedia te complications. FINDINGS: Grayscale ultrasound images demonstrate needles advanced into a 2.4 cm nodule in left thyroid lobe fo r biopsy. IMPRESSION: 1. Ultrasound-guided fine needle aspiration of a left thyroid nodule. Reviewed, dictated and finalized at location A.
== END 2021-12-06 10:15 | disposition home or self-care (01) ==
PROVIDERS: PCP Internal Medicine; Visit Provider Nurse Practitioner
DX: E04.1 Nontoxic single thyroid nodule (principal)
CPT/HCPCS: 10005; 88173; 88305

== ENCOUNTER 2022-04-24 15:24 | Inpatient (IN) | payer MEDICARE, SELFPAY ==
[2022-04-24] VITALS (14 sets, daily range): BP systolic 120–199; BP diastolic 51–106; PULSE 78–85; RESP 14–32; TEMP 36.6; O2SAT 91–99; BMI 25.9
--- NOTE | ~2022-04-24 | CT_ITS ---
EXAMINATION: CT brain wo con DATE: 04/24/2022 16:35 INDICATION: Unresponsive TECHNIQUE: Computed tomography (CT) of the head was performed without intravenous contrast. The mA wa s adjusted according to patient size. Iterative reconstruction technique was employed. Exam dose: 68 1.00 mGy-cm total exam DLP. COMPARISON: 08/11/2021 CT brain FINDINGS: Bilateral vertebral artery calcification, particularly on the right. Prominent bilateral ca rotid siphon internal carotid artery calcifications. There is nonspecific diminished attenuation of the cerebral white matter, likely due to chronic small vessel ischemic changes. No intracranial mass lesion or hemorrhage or cerebrovascular accident is evident. No midline shift or mass effect. There is moderate central and cortical cerebral and mild cerebellar atrophy. No subdural or epidural hematoma is detected. Orbits are unremarkable. Mild soft tissue thickening of the lateral aspect of the left sphenoid sinus. The included paranasal sinuses and the mastoid air cells otherwise are normally developed and aerated. No fracture or bone destruction of the cranial vault. IMPRESSION: Cerebral atherosclerosis and chronic small vessel ischemic changes of cerebral white mat ter Moderate central and cortical cerebral and mild cerebellar atrophy No acute intracranial finding or skull fracture Reviewed, dictated and finalized at [facility]. Reviewed, dictated and finalized at location B. NGE DOUGH MIXER IMPRESSION: Cerebral atherosclerosis and chronic small vessel ischemic changes of cerebral white matter Moderate central and cortical cerebral and mild cerebellar atrophy No acute intracranial finding or skull fracture
--- NOTE | ~2022-04-24 | XR_ITS ---
EXAMINATION: XR chest 1V portable DATE: 04/28/2022 12:27 INDICATION: Unresponsive TECHNIQUE: frontal view of the chest was obtained. COMPARISON: Chest radiograph dated 04/25/2022 FINDINGS: Large-bore dual-lumen left internal jugular likely tunneled central venous dialysis catheter with dis willie tip at the high right atrium. Atherosclerotic calcific a cyst at the bilateral subclavian arterie s project over the apices of lungs. Mild linear discoid atelectasis at the lateral left midlung zone. No other airspace opacities, pulmonary edema, pleural effusion or pneumothorax. The cardiomediastina l silhouette is normal. Mild glandular calcific location. Surgical clips at the proximal medial left upper arm. IMPRESSION: 1. Mild discoid atelectasis in the left midlung zone. No other acute cardiopulmonary disease. Reviewed, dictated and finalized at location A. EST MANAGER IMPRESSION: 1. Mild discoid atelectasis in the left midlung zone. No other acute cardiopulm onary disease.
--- NOTE | ~2022-04-24 | XR_ITS ---
XR chest 1V portable DATE: 04/25/2022 12:29 INDICATION: Shortness of breath TECHNIQUE: Portable AP chest on 04/25/2022 at 1222 hours COMPARISON: 04/24/2022 portable AP chest at 1620 hours FINDINGS: Left internal jugular dialysis catheter, distal tip overlying right atrium. Heart size appears within normal limits. There is prominent thoracic aortic calcification. There are patchy infiltrates in both lower lung zones. There is pulmonary vascular redistribution sug gesting pulmonary venous hypertension. There is prominence of the minor fissure suggesting subpleural edema. No pleural effusion or pneumothorax. Diffuse osteopenia. IMPRESSION: Bilateral lower lung infiltrates, increased since 04/24/2022. Differential diagnosis for t he infiltrates includes aspiration pneumonitis, pneumonia, pulmonary edema Pulmonary vascular redistribution and prominence of the minor fissure, suggesting mild congestive marco a nges. Reviewed, dictated and finalized at location L. IFIED OPHTHALMIC MEDICAL TECHNICIAN IMPRESSION: Bilateral lower lung infiltrates, increased since 04/24/2022. Differ ential diagnosis for the infiltrates includes aspiration pneumonitis, pneumonia , pulmonary edema Pulmonary vascular redistribution and prominence of the minor fissure, suggesti ng mild congestive changes.
--- NOTE | ~2022-04-24 | US_ITS ---
EXAMINATION: US carotid duplex BI DATE: 04/26/2022 21:07 INDICATION: Syncope. TECHNIQUE: Grayscale, color Doppler, and pulsed Doppler images of the cervical carotid arteries were obtained. The degree of vessel stenosis is placed in one of the following categories: normal, <50%, 5 0-69%, >=70% but less than near-occlusion, near-occlusion, or total occlusion. Note that percent sten osis relative to normal distal artery lumen diameter is indirectly measured from velocity measurement s as described by Musa, et al. Radiology 2003; [id number]. COMPARISON: Ultrasound 08/13/2021 FINDINGS: RIGHT: The right common carotid artery (CCA) peak systolic velocity (PSV) is 82 cm/s. The right internal car otid artery (ICA) PSV is 66 cm/s. The right ICA end-diastolic velocity (EDV) is 6 cm/s. The right ICA /CCA PSV ratio is 0.8. Grayscale and color Doppler images yield an estimate of <50% diameter reductio n from plaque in the ICA. There is antegrade flow in the right vertebral artery. LEFT: The left CCA PSV is 89 cm/s. The left ICA PSV is 122 cm/s. The left ICA EDV is 14 cm/s. The left ICA/ CCA PSV ratio is 1.4. Grayscale and color Doppler images yield an estimate of <50% diameter reduction from plaque in the ICA. The left vertebral artery was not evaluated due to patient noncompliance. IMPRESSION: 1. <50% stenosis in the right internal carotid artery. 2. <50% stenosis in the left internal carotid artery. Reviewed, dictated and finalized at location A. ENSER WINDER
--- NOTE | ~2022-04-24 | XR_ITS ---
XR chest 1V portable DATE: 04/24/2022 16:24 INDICATION: Unresponsive. Vomiting. Drowsiness. TECHNIQUE: Portable upright AP chest on 04/24/2022 at 1620 hours COMPARISON: 08/23/2021 portable AP chest FINDINGS: Left internal jugular central venous catheter is again noted, distal tip overlying right at rium. There is extensive thoracic aortic calcification. Heart size appears within normal range. No hilar or mediastinal enlargement. There is mild to moderate elevation of the right leaf of diaphragm and mild infiltrate or atelectasis at the lung bases. The lungs otherwise appear clear. No pleural effusion or pulmonary vascular conge stion or pneumothorax is noted. Diffuse osteopenia. IMPRESSION: Mild to moderate elevation right diaphragm Mild bibasilar infiltrate or atelectasis Left internal jugular central venous catheter in right atrium Reviewed, dictated and finalized at location B. STMENT COUNSELOR
--- NOTE | ~2022-04-24 | CT_ITS ---
EXAMINATION: CTA chest PE protocol DATE: 04/25/2022 14:52 INDICATION: Hypoxia. TECHNIQUE: Computed tomography angiography (CTA) of the chest was performed with 100 mL Omnipaque-350 intravenous contrast timed to evaluate the pulmonary arteries. Coronal maximum intensity projection 3D-reconstructions were created by the technologist. Automated exposure control and iterative reconst ruction technique were employed. The dose-length product was 506.16 mGy-cm. COMPARISON: Chest CT 11/08/2021 FINDINGS: Motion artifact is noted. There are airspace opacities in the lower lobes with a dependent predominance. Again seen are centrilobular nodules in posterior segment right upper lobe. There are p eripheral groundglass opacities in right upper lobe. There is mild atelectasis in lingula. There are small pleural effusions. Cardiomegaly is noted. There are coronary artery calcifications. There are c alcifications aortic valve. No pericardial effusion. There is no pulmonary embolus. There are gallsto jennifer in the gallbladder, which is normal in size. Gallbladder wall thickening is noted. A left interna l jugular central venous catheter is seen with tip in the right atrium. There is mild thoracic spondy losis. IMPRESSION: 1. No pulmonary embolus. Sensitivity is moderately decreased by motion artifact. 2. Pneumonia involving the lower lobes and right upper lobe. 3. Small pleural effusions. 4. Cholelithiasis. Gallbladder wall thickening may be secondary to interstitial edema or chronic chol ecystitis. Reviewed, dictated and finalized at location A. DRAWER IMPRESSION: 1. No pulmonary embolus. Sensitivity is moderately decreased by motion artifact . 2. Pneumonia involving the lower lobes and right upper lobe. 3. Small pleural effusions. 4. Cholelithiasis. Gallbladder wall thickening may be secondary to interstitial edema or chronic cholecystitis.
--- NOTE | ~2022-04-24 | XR_ITS ---
EXAMINATION: XR barium swallow modified DATE: 04/26/2022 09:23 INDICATION: Aspiration TECHNIQUE: Modified barium esophagram was performed by myself who administered fluoroscopy, in conju nction with speech pathologist who administered barium in varying consistencies as per speech patholo gist documentation. This was recorded on tape. A single fluoroscopic spot image was recorded. Fluoros copy exposure time was 3.8 minutes. The DAP for this procedure was 3.3 Gycm2. FINDINGS: Oral stage: Adequate function. Pharyngeal phase: Reduced laryngeal elevation, reduced tongue base retraction, vallecular residue. Laryngeal penetration: Present with thin/nectar thickness. Aspiration: None. Laryngeal sensitivity: Absent. IMPRESSION: Abnormal modified barium swallow as above. Please refer to speech pathologist findings an d specific feeding recommendations. Reviewed, dictated and finalized at location A. TH AND SAFETY MANAGER IMPRESSION: Abnormal modified barium swallow as above. Please refer to speech p athologist findings and specific feeding recommendations.
--- NOTE | 2022-04-24 15:42 | ECG_ITS ---
Measurements Intervals [place] Rate: 84 P: 21 FL: 143 QRS: 21 QRSD: 96 T: 5 QT: 378 QTc: 448 Interpretive Statements SINUS RHYTHM ATRIAL PREMATURE COMPLEXES NONSPECIFIC ST & T-WAVE ABNORMALITY- INFERIOR LEADS BORDERLINE ECG COMPARED TO ECG 08/11/2021 11:07:01 SINUS RHYTHM NOW PRESENT Electronically Signed On 04-24-2022 20:25:33 [employer] by Floyd Multani D.O.
--- NOTE | 2022-04-24 15:42 | ED.AMS ---
HPI - Altered Mental Status General Chief Complaint: Altered Mental Status Stated Complaint: UNRESPONSIVE Time Seen by Provider: 04/24/22 15:42 Source: family and EMS Mode of arrival: EMS History of Present Illness HPI narrative: Patient 77 years old white female came to the emergency room by ambulance from dialysis center because of unresponsiveness during dialysis. Patient was eating and suddenly became unresponsive. Subsequently vomited twice. Patient did not have difficulty breathing or dyspnea is telling me that patient usually sleeps on average 14 to 18 hours a day, sometimes she sleeps while eating and keeps a food in her mouth for hours. She looks different in the emergency room compared to her baseline. Patient is DNR. denied that the patient had any fever, chills, nausea or vomiting today or in the previous days. And the denied that the patient had similar symptoms in the past. Related Data Home Medications Medication Instructions Recorded Confirmed multivit with 1 tablet PO DAILY 06/25/19 10/06/21 [id number]-jcmx-[id number]-lutein 8 mg iron-400 mcg-300 mcg tablet (Centrum Silver Women) omega-3 fatty acids 1,000 mg 500 mg PO DAILY 06/25/19 10/06/21 capsule (Fish Oil Concentrate) guanfacine 1 mg tablet 1 mg PO DAILY 08/26/19 10/06/21 ferrous sulfate 325 mg (65 mg 325 mg PO DAILY 08/12/21 10/06/21 iron) tablet,delayed release polyethylene glycol 3350 17 gram 17 g PO DAILY 08/12/21 10/06/21 oral powder packet (Miralax) calcium carbonate 500 mg calcium 500 mg PO TID 10/06/21 10/06/21 (1,250 mg) tablet cholecalciferol (vitamin D3) 125 125 mcg PO DAILY 10/06/21 10/06/21 mcg (5,000 unit) capsule Allergies Allergy/AdvReac Type Severity Reaction Status Date / Time Sulfa (Sulfonamide Allergy Mild RASH Verified 04/06/22 10:02 Antibiotics) Review of Systems Review of Systems: All systems reviewed & are unremarkable except as noted in HPI and below PMFSH Past Medical History Medical History Acute non-ST elevation myocardial infarction (NSTEMI) Anemia in chronic kidney disease, on chronic dialysis Atherosclerotic heart disease Bilateral carotid artery stenosis 70% stenosis bilateral carotids December 2018 CHF (congestive heart failure) Echocardiogram April 2020: EF 60 65%, grade 1 diastolic dysfunction, moderately increased left ventricular wall thickness, basal inferior wall, mid inferior wall are hypokinetic, moderate left atrial enlargement, mild mitral and tricuspid regurgitation, mild pulmonary hypertension with RVSP of 37 CVA (cerebral vascular accident) (~12/2016) Cerebellum and right occipital lobe due to septic emboli Diabetes mellitus Diabetic neuropathy End-stage renal disease on hemodialysis Initiated hemodialysis April 2020, transition to peritoneal dialysis thereafter End-stage renal disease on peritoneal dialysis Endocarditis Aortic valve endocarditis December 2016 Erythropoietin deficiency anemia Hypertension associated with diabetes Hypothyroidism Mixed hyperlipidemia Other heart block Renal osteodystrophy Surgical History Surgical History Amputation of toe of left foot (07/2021) Left 1st and 2nd toe for gangrene infection related to diabetic foot wound. History of coronary artery stent placement MO with 1 stent 2010 History of tonsillectomy and adenoidectomy History of tubal ligation History of vascular surgery Left lower extremity stent. Family History Family History Sibling Family history of Alzheimer's disease Grandparent Carcinoma of colon Father Family history of heart disease in male family member before age 55 Diabetes mellitus Mother Family history of heart disease in male family member before age 55 Diabetes mellitus Cerebrovascular accident Other Hypertension
--- NOTE | 2022-04-24 16:08 | PC.NURSE ---
Pt vomiting while laying on back, not attempting to turn on her own at all. This RN and Tamiko turning pt on her side and suctioning.
[2022-04-24 16:18] LABS: Alveolar/Arterial O2 Gradient 36.3 mmHg; Base Excess ABG 3.7 mEq/l (+/-2.0); Fractional Inspired Oxygen 21 %; HCO3 ABG 27.5 mEq/l (22.0-26.0); Oxygen Content ABG 13.1 %vol (16.0-22.0); Oxygen Saturation ABG 94.5 % (95.0-100.0); Oxyhemoglobin 91.2 % THb (90.0-100.0); PCO2 ABG 38.6 mmHg (35.0-45.0); PO2 ABG 67.2 mmHg (80.0-100.0); Total Hemoglobin 10.2 g/dL (12.0-18.0); pH ABG 7.471 (7.350-7.450)
[2022-04-24 16:19] LABS: Site Drawn RIGHT BRACHIAL
[2022-04-24 16:20] LABS: Device ROOM AIR
--- NOTE | 2022-04-24 16:30 | PC.NURSE ---
Pt vomiting multiple times and needing to be suctioned. Pt O2 dropping into the 70s at this time. Pt placed on 6L of O2
[2022-04-24 16:37] LABS: Basophils Absolute Auto 0.1 K/mm3 (0.0-0.1); Basophils Percent Auto 0.5 % (0.2-1.2); Eosinophils Absolute Auto 0.2 K/mm3 (0-0.3); Eosinophils Percent Auto 1.7 % (0-4.4); Hematocrit 34.3 % (37.0-47.0); Hemoglobin 10.1 g/dL (12.0-15.0); Immature Granulocyte Absolute 0.18 K/mm3 (0.00-0.031); Immature Granulocyte Percent A 1.3 % (0-0.5); Lymphocytes Absolute Auto 1.49 K/mm3 (0.9-3.2); Lymphocytes Percent Auto 10.9 % (18.3-44.2); Mean Corpuscular HGB Conc 29.4 g/dl (32-36); Mean Corpuscular Hemoglobin 28.6 pg (26-34); Mean Corpuscular Volume 97.2 fl (80-100); Mean Platelet Volume 9.3 fl (7.4-10.4); Monocytes Percent Auto 7.3 % (2.6-8.5); Neutrophils Absolute Auto 10.7 K/mm3 (1.3-6.7); Neutrophils Percent Auto 78.3 % (45.5-73.1); Platelet Count Result 341 k/mm3 (150-375); Red Blood Count 3.53 M/mm3 (4.2-5.4); Red Cell Distribution Width 17.9 % (11.5-14.5); White Blood Count 13.7 K/mm3 (4.5-10.0)
[2022-04-24 16:45] LABS: INR 1.2; Prothrombin Time 14.9 Seconds (11.1-14.7)
[2022-04-24 16:47] LABS: Alanine Aminotransferase 26 U/L (6-35); Albumin Level 3.8 g/dL (3.5-5.1); Alkaline Phosphatase 87 U/L (38-126); Anion Gap 6 mmol/L (8-16); Aspartate Amino Transferase 49 U/L (14-36); Bilirubin,Total 0.4 mg/dL (0.2-1.3); Blood Urea Nitrogen 16 mg/dL (7-17); Calcium 8.3 mg/dL (8.4-10.2); Carbon Dioxide 33 mmol/L (22-30); Chloride 99 mmol/L (98-107); Creatine Kinase 25 U/L (30-135); Estimated CRCL calculation 15 ml/min; Estimated Glomerular Filt Rate 18; Glucose 93 mg/dL (65-110); Potassium 4.3 mmol/L (3.4-5.0); Sodium 138 mmol/L (137-145)
[2022-04-24 16:57] LABS: Troponin I < 0.012 ng/mL (0.000-0.034)
[2022-04-24 17:02] LABS: Hypochromasia 1+ (NORMAL); Platelet Estimate Adequate (Adequate); Schistocytes None Seen (NORMAL)
[2022-04-24 17:03] LABS: Anisocytosis 2+ (NORMAL)
[2022-04-24 17:33] LABS: Bacteria Urine Trace /hpf; RBC Urine 0-2 /hpf (0-2); Squamous Epithelial Cell Urine Rare /hpf (Few); WBC Urine 0-3 /hpf
[2022-04-24 17:38] LABS: Appearance Urine Clear (Clear); Bilirubin Urine Negative (Negative); Blood Urine Negative (Negative); Color Urine Yellow (Yellow); Glucose Urine UA Trace mg/dL (Negative); Ketones Urine Negative (Negative); Leukocyte Esterase Ur Negative LEU/UL (Negative); Nitrate Urine Negative (Negative); Protein Urine 3+ mg/dL (Negative); Urobilinogen Urine 0.2 mg/dL (<2.0); pH Urine 8.5 (5.0-9.0)
[2022-04-24 17:39] LABS: Add Urine Microscopic? YES
[2022-04-24] MEDS: SODIUM CHLORIDE 0.9% IV 1,000 ML 50 ML IV CONT (17:54)
--- NOTE | 2022-04-24 17:54 | PC.NURSE ---
Pt more responsive at this time. Able to tell me her name, where she is and said it was 2021. Pt able to speak with
--- NOTE | 2022-04-24 17:56 | PC.NURSE ---
Pt 100% on 6L. O2 turned down to 2L
[2022-04-24 19:26] LABS: Influenza A QL RT-PCR Negative (Negative); Influenza B QL RT-PCR Negative (Negative); RSV RNA, RT-PCR Negative (Negative); SARS-CoV-2 RNA PCR Negative
--- NOTE | 2022-04-24 20:01 | PM.IMHP ---
H&P: HPI History of Present Illness Date/Time: 04/24/22 20:01 Chief Complaint: Altered mental status Narrative: This is a 77-year-old female with past medical history significant for end-stage renal disease on hemodialysis, insulin-dependent diabetes mellitus, hypothyroidism, left foot transmetatarsal amputation, peripheral diabetic neuropathy, stroke, anemia of chronic kidney disease. Patient was undergoing dialysis today when she had an episode of unresponsiveness was brought to the emergency room for evaluation of this episode, according to patient has been in her usual state of health. Overall functional status of the patient is limited, sleeps 14-18 hours a day, sometimes falls asleep with food in her mouth which holds for several hours. At the time of my visit patient denied any pain, no nausea, no vomiting, no diarrhea, no fevers, no rigors, no cough, no sputum production. At the moment disease incident took place patient was eating and swallowing. No vomit at this time. Preliminary workup was significant for CBC with a leukocyte count of 13,000. A CT of the head was reported as: FINDINGS: Bilateral vertebral artery calcification, particularly on the right. Prominent bilateral carotid siphon internal carotid artery calcifications. There is nonspecific diminished attenuation of the cerebral white matter, likely due to chronic small vessel ischemic changes. No intracranial mass lesion or hemorrhage or cerebrovascular accident is evident. No midline shift or mass effect. There is moderate central and cortical cerebral and mild cerebellar atrophy. No subdural or epidural hematoma is detected. Orbits are unremarkable. Mild soft tissue thickening of the lateral aspect of the left sphenoid sinus. The included paranasal sinuses and the mastoid air cells otherwise are normally developed and aerated. No fracture or bone destruction of the cranial vault. IMPRESSION:? Cerebral atherosclerosis and chronic small vessel ischemic changes of cerebral white matter Moderate central and cortical cerebral and mild cerebellar atrophy No acute intracranial finding or skull fracture FINDINGS: Left internal jugular central venous catheter is again noted, distal tip overlying right atrium. There is extensive thoracic aortic calcification. Heart size appears within normal range. No hilar or mediastinal enlargement. There is mild to moderate elevation of the right leaf of diaphragm and mild infiltrate or atelectasis at the lung bases. The lungs otherwise appear clear. No pleural effusion or pulmonary vascular congestion or pneumothorax is noted. Diffuse osteopenia.? IMPRESSION: Mild to moderate elevation right diaphragm Mild bibasilar infiltrate or atelectasis Left internal jugular central venous catheter in right atrium? Review of Systems Review of Systems: History taking is limited patient has no recollections of event Constitutional: Constitutional: Denies chills and Denies fever(s) Eyes: Eyes: Denies change in vision ENT: Denies dysphagia and Denies odynophagia Cardiovascular: Cardiovascular: Denies chest pain Respiratory: Respiratory: Denies chest congestion, Denies cough and Denies pain on inspiration Gastrointestinal: Gastrointestinal: Denies abdominal pain, Denies nausea and Denies vomiting Musculoskeletal: Musculoskeletal: Reports other (Left transmetatarsal amputation) Integumentary/Breasts: Skin/Breast: Reports wounds (Left foot stump) Neurologic: Reports syncope Psychiatric: Psychiatric: Reports no additional psychiatric complaints and Reports as per HPI Endocrine: Endocrine: Denies cold intolerance, Denies flushing, Denies heat intolerance, Denies polyphagia, Denies polydipsia and Denies palpitations Hematologic/Lymphatic: Hematologic/Lymphatic: Reports no additional hematologic/lymphatic complaints and Reports as per HPI Allergic/Immunologic: Allergic/Immunologic: Reports no additional allergic/immunologic complaints and Reports
--- NOTE | 2022-04-24 21:38 | ADMGEN ---
This patient, Jing Alfredo, was admitted to 3 [facility] Surg Room 305-02 at 2024. Patient/family oriented to hospital policies and general routines including ID bracelet, bed and alarms, visiting hours, pain management, procedures, bathroom and other care routines, personal items, smoking policy, room service/diet, and visiting hours. Information on how to activate the Rapid Response Team has been discussed. Patient/Family are encouraged to report perceived risks to care and to ask questions if they do not understand what they are told or what they should do.
[2022-04-24 23:48] LABS: Glucose Point of Care 105 mg/dl (65-105)
[2022-04-25] VITALS (18 sets, daily range): BP systolic 119–167; BP diastolic 41–88; PULSE 53–112; RESP 12–34; TEMP 36.4–39.1; O2SAT 68–100
[2022-04-25] MEDS: LEVOTHYROXINE SODIUM 75 MCG TABLET PO (05:48)
[2022-04-25 06:07] LABS: Glucose Point of Care 98 mg/dl (65-105)
--- NOTE | 2022-04-25 07:40 | PC.NURSE ---
At 0548, pt was administered Synthroid PO. After pt was given Synthroid, pt depends was changed and was turned to the left side. Upon returning pt back to supine, pt became unresponsive. Pt was sternal rubbed and pt was unresponsive, vitals stable, no pulses palpated on bilateral radial pulses. Rapid response was called and pt was attended to. Pt was sternal rubbed again with a slight faint yes in response to sternal rub and when pt name was called. At 0615 pt was stable, comfortable, and pt responded yes to Are you doing okay? Pt was left on 4L of O2 and head of bed was at 45 degrees. Close monitoring will be continued by RN and rest of medical staff.
--- NOTE | 2022-04-25 07:57 | PC.NURSE ---
At 0230 RN was at bedside and pt started to gag. Upon gagging pt was unable to clear secretions. Pt was place on left side to help clear secretions effectively. Pt had small amount of clear green emesis x1.
[2022-04-25] MEDS: FERROUS SULFATE 324 MG TABLET PO (09:13)
[2022-04-25] MEDS: CALCIUM CARBONATE (OSCAL) 500 MG TABLET PO (09:14)
[2022-04-25] MEDS: CHOLECALCIFEROL 1,000 UNITS TABLET 5000 UNITS PO (09:14)
[2022-04-25] MEDS: CLOPIDOGREL BISULFATE 75 MG TABLET PO (09:14)
[2022-04-25] MEDS: ISOSORBIDE MONONITRATE 30 MG TAB.ER.24H PO (09:14)
[2022-04-25] MEDS: guanFACINE HCL 1 MG TABLET PO (09:14)
[2022-04-25 09:20] LABS: Hematocrit 30.8 % (37.0-47.0); Hemoglobin 9.2 g/dL (12.0-15.0); Mean Corpuscular HGB Conc 29.9 g/dl (32-36); Mean Corpuscular Hemoglobin 29.2 pg (26-34); Mean Corpuscular Volume 97.8 fl (80-100); Mean Platelet Volume 9.2 fl (7.4-10.4); Platelet Count Result 289 k/mm3 (150-375); Red Blood Count 3.15 M/mm3 (4.2-5.4); Red Cell Distribution Width 18.1 % (11.5-14.5); White Blood Count 23.7 K/mm3 (4.5-10.0)
[2022-04-25 09:30] LABS: Anion Gap 9 mmol/L (8-16); Blood Urea Nitrogen 23 mg/dL (7-17); Calcium 7.9 mg/dL (8.4-10.2); Carbon Dioxide 25 mmol/L (22-30); Chloride 104 mmol/L (98-107); Estimated CRCL calculation 12 ml/min; Estimated Glomerular Filt Rate 14; Glucose 109 mg/dL (65-110); Potassium 5.1 mmol/L (3.4-5.0); Sodium 138 mmol/L (137-145)
[2022-04-25] MEDS: INSULIN GLARGINE (*BKC) 100 UNITS/ML 36 UNITS SUB-Q (10:39)
[2022-04-25 12:06] LABS: Glucose Point of Care 188 mg/dl (65-105)
[2022-04-25 12:23] LABS: Base Excess ABG 1.7 mEq/l (+/-2.0); HCO3 ABG 25.9 mEq/l (22.0-26.0); Oxygen Content ABG 12.4 %vol (16.0-22.0); Oxygen Saturation ABG 94.6 % (95.0-100.0); Oxyhemoglobin 91.9 % THb (90.0-100.0); PCO2 ABG 38.6 mmHg (35.0-45.0); PO2 ABG 69.1 mmHg (80.0-100.0); PO2 FiO2 Ratio Arterial Blood 1.38 %; Total Hemoglobin 9.5 g/dL (12.0-18.0); pH ABG 7.444 (7.350-7.450)
[2022-04-25 12:24] LABS: Device NASAL CANNULA; Fractional Inspired Oxygen 40 %; Modified Allen's Test Pass; Site Drawn RIGHT RADIAL
[2022-04-25 13:13] LABS: Lactic Acid Reflex 1.4 mmol/L (0.7-2.0)
--- NOTE | 2022-04-25 14:06 | PM.IMPN ---
Progress Note: A&P Assessment and Plan (1) Unresponsive episode: Code(s): R41.89 - Other symptoms and signs involving cognitive functions and awareness Status: Acute Assessment and Plan: Patient had unresponsive episode while at dialysis. Etiology for this unclear. Head CT on admission with no acute findings. another episode or patient was poorly responsive this afternoon. suspect the patient aspirated as the episode occurred while eating lunch, resulting in hypoxia. See plan below. (2) Hypoxia: Code(s): R09.02 - Hypoxemia Status: Acute Assessment and Plan: Patient noted to be hypoxic in the 70s today. O2 sats resolved after patient was placed on non-rebreather. CXR showed increased bilateral lower lung infiltrates concerning for aspiration pneumonia. believe the patient aspirated triggering episode of hypoxia. Patient currently maintaining adequate O2 sats on 4 L supplemental O2. Will proceed with CTA of the chest to ensure no pulmonary embolism contributing to symptoms, however this is less likely. discussed with Nephrology, okay to proceed with contrast and have plans for dialysis tomorrow (3) Aspiration pneumonia: Code(s): J69.0 - Pneumonitis due to inhalation of food and vomit Status: Acute Assessment and Plan: CXR revealed mild bibasilar infiltrates in based on patient presentation, there was concern for aspiration. Patient has been started on IV Zosyn. Unresponsive episode while eating lunch today, suspect repeat aspiration. Patient be made NPO at this time. Will proceed with speech therapy bedside evaluation. Implement aspiration precautions. blood cultures pending. Will attempt sputum culture. lactic acid within normal limits. (4) Leukocytosis: Code(s): D72.829 - Elevated white blood cell count, unspecified Status: Acute Assessment and Plan: Worsening leukocytosis today from 13 to 23. Suspect secondary to worsening aspiration. Continue broad-spectrum Zosyn. Monitor CBC with differential closely. (5) End-stage renal disease on hemodialysis: Code(s): N18.6 - End stage renal disease; Z99.2 - Dependence on renal dialysis Status: Acute Assessment and Plan: maintained on hemodialysis on Sunday, Sunday, Sunday. Appreciate nephrology consultation to continue hemodialysis during admission (6) Peripheral vascular disease: Onset Date: Unknown Code(s): I73.9 - Peripheral vascular disease, unspecified Status: Acute Assessment and Plan: Established with vascular surgeon, Dr. Ocasio at [facility]. Status post left transmetatarsal amputation With recent debridement last week. Continue with dressing changes daily. Continue Plavix (7) Insulin dependent type 2 diabetes mellitus: Onset Date: Unknown Code(s): E11.9 - Type 2 diabetes mellitus without complications; Z79.4 - snf (current) use of insulin Status: Acute Assessment and Plan: blood sugars are stable. Continue Accu-Cheks, sliding scale insulin, and hypoglycemic protocol. Check updated A1c Plan Case discussed with my supervising physician. Time Spent With Patient Time: 35 minutes of critical care time. Time with patient: Greater than 35 minutes Subjective Date/time seen: 04/25/22 14:06 Interval history: date of service: 04/25/2022 Jing Alfredo is a 77-year-old female with a history of ESRD on hemodialysis, anemia chronic disease, CAD, CHF, CVA, diabetes mellitus, hypertension, hypothyroidism, and hyperlipidemia who is seen in follow-up for an unresponsive episode. I evaluated the patient this morning with her at the bedside. Patient states that she was feeling well. Her was concerned that she was not speaking is clearly and that her arms were more swollen than normal. States that she is wheelchair-bound and he is able to help her from bed to the wheelcha
[2022-04-25] MEDS: HEPARIN SODIUM 5,000 UNITS/ML VIAL 5000 UNITS SUB-Q ×2 (14:15→21:37)
[2022-04-25] MEDS: COLLAGENASE OINT 30 GM TUBE 1 APPLIC TOPICAL (15:43)
[2022-04-25] MEDS: LIDOCAINE/PRILOCAINE CREAM 2.5-2.5% TUBE 1 EACH TOPICAL (15:43)
--- NOTE | 2022-04-25 16:00 | PM.CNNEP ---
Assessment and Plan Assessment and plan (1) ESRD (end stage renal disease): Code(s): N18.6 - End stage renal disease Status: Chronic Assessment and Plan: plan HD tomorrow and continue M/W/F dialysis schedule follow electrolytes, volume status, and clearance (2) Aspiration pneumonia: Code(s): J69.0 - Pneumonitis due to inhalation of food and vomit Status: Acute Assessment and Plan: as noted on presentation as well as by events earlier today NPO and speech therapy to evaluate on antibiotics follow culture results (3) Unresponsive episode: Code(s): R41.89 - Other symptoms and signs involving cognitive functions and awareness Status: Acute Assessment and Plan: presumably precipitated by/caused by hypoxia... since associated with oral intake, assumption is aspiration occurred leading to hypoxia and then unresponsiveness... follow mentation closely (4) Hypoxia: Code(s): R09.02 - Hypoxemia Status: Acute Assessment and Plan: thought to be secondary to aspiration continue supplemental oxygen follow respiratory status CTA of chest negative for PE (5) Insulin dependent type 2 diabetes mellitus: Onset Date: Unknown Code(s): E11.9 - Type 2 diabetes mellitus without complications; Z79.4 - alf (current) use of insulin Status: Chronic Assessment and Plan: follow accuchecks glycemic control Discussed case with YOBANY Beltrán earlier today Will continue to follow. History of Present Illness Reason for Consult Consult date: 04/25/22 Reason for consult: end stage renal disease Chief Complaint Chief complaint: unresponsive in a dialysis patient History of Present Illness Narrative: The patient is a 77-year-old female with a past medical history as outlined below who presented to [facility] Emergency Room for further evaluation of an episode of unresponsiveness. Apparently, the patient was at her dialysis treatment yesterday for her regularly scheduled outpatient dialysis treatment. While she was undergoing dialysis, she had an episode where she apparently became unresponsive when she was trying to eat something. Her dialysis treatment was halted and EMS was called with subsequent transfer to the emergency room for further assessment. According to the patient's , he admits that her overall clinical condition has somewhat deteriorated the fact that she sometimes sleeps 12 - 14 hours a day and does not do much in terms of activities of daily living. He also reports that she frequently falls asleep with food in her mouth as well. Further evaluation in the emergency room included routine blood test demonstrated labs consistent with her known history of end-stage renal disease as well as imaging including a CT scan of the head which did not demonstrate any acute intracranial hemorrhage. Her CBC did demonstrate a mildly elevated white blood cell count but no other significant abnormalities. She was subsequent admitted to the hospital for further evaluation and therapy. Renal consultation was requested due to her end-stage renal disease. The patient normally dialyzes on a Sunday, Sunday, Sunday dialysis schedule under the care of Dr. Rio Gee at [facility]. From a dialysis perspective, she is usually compliant with her treatments and has no major issues or problems that I am aware of. I am unclear how much of a dialysis treatment she had yesterday prior to her transfer to the ER but labs done today showed relative stability in her electrolytes and her volume status appears to be fairly stable as well. She is next due for dialysis tomorrow. Earlier today, I received a call from YOBANY Carter same the patient had another episode of unresponsiveness while eating food around lunchtime. Associated with this was significant/severe hypoxia with a concern for possible aspiration
[2022-04-25 16:41] LABS: Glucose Point of Care 136 mg/dl (65-105)
--- NOTE | 2022-04-25 17:09 | PHAR ---
PT'S HOME MED LIDOCAINE/PRILOSCAINE 2.5%/2.5% CREAM VERFIED BY PHARMACY
[2022-04-25 21:44] LABS: Glucose Point of Care 110 mg/dl (65-105)
[2022-04-26] VITALS (25 sets, daily range): BP systolic 102–173; BP diastolic 48–71; PULSE 57–95; RESP 14–22; TEMP 36–37.2; O2SAT 90–98
[2022-04-26 05:35] LABS: Basophils Absolute Auto 0.1 K/mm3 (0.0-0.1); Basophils Percent Auto 0.3 % (0.2-1.2); Eosinophils Absolute Auto 0.3 K/mm3 (0-0.3); Eosinophils Percent Auto 1.2 % (0-4.4); Hemoglobin 8.3 g/dL (12.0-15.0); Immature Granulocyte Absolute 0.18 K/mm3 (0.00-0.031); Immature Granulocyte Percent A 0.8 % (0-0.5); Lymphocytes Absolute Auto 1.03 K/mm3 (0.9-3.2); Lymphocytes Percent Auto 4.6 % (18.3-44.2); Mean Corpuscular HGB Conc 29.6 g/dl (32-36); Mean Corpuscular Hemoglobin 29.1 pg (26-34); Mean Corpuscular Volume 98.2 fl (80-100); Mean Platelet Volume 9.2 fl (7.4-10.4); Monocytes Absolute Auto 1.4 K/mm3 (0.1-0.6); Monocytes Percent Auto 6.1 % (2.6-8.5); Neutrophils Absolute Auto 19.4 K/mm3 (1.3-6.7); Platelet Count Result 279 k/mm3 (150-375); Red Blood Count 2.85 M/mm3 (4.2-5.4); White Blood Count 22.3 K/mm3 (4.5-10.0)
[2022-04-26 05:43] LABS: Potassium 4.5 mmol/L (3.4-5.0)
[2022-04-26 05:52] LABS: Alanine Aminotransferase 20 U/L (6-35); Albumin Level 3.1 g/dL (3.5-5.1); Alkaline Phosphatase 64 U/L (38-126); Anion Gap 9 mmol/L (8-16); Aspartate Amino Transferase 29 U/L (14-36); Bilirubin,Total 0.4 mg/dL (0.2-1.3); Blood Urea Nitrogen 29 mg/dL (7-17); Calcium 8.4 mg/dL (8.4-10.2); Carbon Dioxide 24 mmol/L (22-30); Chloride 101 mmol/L (98-107); Estimated CRCL calculation 9 ml/min; Estimated Glomerular Filt Rate 10; Glucose 113 mg/dL (65-110); Sodium 134 mmol/L (137-145)
[2022-04-26] MEDS: HEPARIN SODIUM 5,000 UNITS/ML VIAL 5000 UNITS SUB-Q ×2 (05:52→21:35)
[2022-04-26 06:19] LABS: Hepatitis B Surface Antigen Negative (Negative)
[2022-04-26 06:25] LABS: HAV RESULT Negative (Negative); Hepatitis B Core IgM Result Negative (Negative)
[2022-04-26 07:33] LABS: Hepatitis C Virus Antibody Negative (Negative)
[2022-04-26 08:37] LABS: Hepatitis B Surface Anti Res Positive
--- NOTE | 2022-04-26 10:00 | PCSTNOTE ---
Please refer to the Modified Barium Swallow Evaluation in the EMR.
[2022-04-26] MEDS: CHOLECALCIFEROL 1,000 UNITS TABLET 5000 UNITS PO (11:19)
[2022-04-26] MEDS: guanFACINE HCL 1 MG TABLET PO (11:20)
[2022-04-26] MEDS: ISOSORBIDE MONONITRATE 30 MG TAB.ER.24H PO (11:20)
[2022-04-26] MEDS: CLOPIDOGREL BISULFATE 75 MG TABLET PO (11:20)
[2022-04-26] MEDS: FERROUS SULFATE 324 MG TABLET PO (11:21)
[2022-04-26] MEDS: COLLAGENASE OINT 30 GM TUBE 1 APPLIC TOPICAL (11:24)
[2022-04-26] MEDS: LIDOCAINE/PRILOCAINE CREAM 2.5-2.5% TUBE 1 EACH TOPICAL (11:24)
--- NOTE | 2022-04-26 11:25 | WPDNEURCNPN ---
Assessment and Plan Assessment and plan (1) Unresponsive episode: Code(s): R41.89 - Other symptoms and signs involving cognitive functions and awareness Status: Acute (2) Hypoxia: Code(s): R09.02 - Hypoxemia Status: Acute (3) Aspiration pneumonia: Code(s): J69.0 - Pneumonitis due to inhalation of food and vomit Status: Acute (4) CKD (chronic kidney disease): Code(s): N18.9 - Chronic kidney disease, unspecified Status: Acute (5) CVA (cerebral vascular accident): Code(s): I63.9 - Cerebral infarction, unspecified Status: Acute (6) Diabetic neuropathy associated with diabetes mellitus due to underlying condition: Code(s): E08.40 - Diabetes mellitus due to underlying condition with diabetic neuropathy, unspecified Status: Chronic (7) Hyperlipidemia: Qualifiers: Hyperlipidemia type: unspecified Qualified Code(s): E78.5 - Hyperlipidemia, unspecified Code(s): E78.5 - Hyperlipidemia, unspecified Status: Acute (8) Essential (primary) hypertension: Code(s): I10 - Essential (primary) hypertension Status: Acute Plan Jing Alfredo is a 77 year old female with a history of NSTEMI, bilateral carotid disease, 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 Differential is quite broad at this point, could be related to hypoxic event vs carotid disease vs cardiogenic syncope vs less likely seizure. 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 Patient was in her usual state of healthy while getting dialyzed. She was eating lunch and suddenly became unresponsive. There was no seizure-like activity. Patient was taken to [place] ED where she was difficult to rouse. Eventually she did regain consciousness within 30 minutes of being in the ED and was back to baseline. Initial BP in the ED was 180s-190s systolic. CT head was unremarkable. Labs were significant for leukocytosis and uremia. She was admitted for further evaluation. Yesterday, she had another unresponsive episode while eating her lunch. She was found with food in her mouth and was hypoxic to the 70s. CXR was obtained which was concerning for aspiration pneumonia. She was started on broad spectrum antibiotics. Carotid Doppler have been done which showed <50% stenosis bilaterally. Review of Systems Constitutional: Constitutional: Reports no additional constitutional complaints Eyes: Eyes: Reports no additional eye complaints ENT: Reports dysphagia Cardiovascular: Cardiovascular: Reports no additional cardiovascular complaints Respiratory: Respiratory: Reports no additional respiratory complaints Gastrointestinal: Gastrointestinal: Reports diarrhea Genitourinary: Genitourinary: Reports no additional female genitourinary complaints Musculoskeletal: Comments: amputee, left toes Integumentary/Breasts: Comments: bruising of upper extremities Neurologic: Reports confusion Psychiatric: Psychiatric: Reports confusion PMFSH Past Medical History Medical History Acute non-ST elevation myocardial infarction (NSTEMI) Anemia in chronic kidney disease, on chronic dialysis Atherosclerotic heart disease Bilateral carotid artery stenosis 70% stenosis bilateral carotids December 2018 CHF (congestive heart failure) Echocardiogram April 2020: EF 60 65%, grade 1 di
--- NOTE | 2022-04-26 13:01 | P.PNNP_ITS ---
Progress Note: A&P Assessment and Plan (1) ESRD (end stage renal disease): Code(s): N18.6 - End stage renal disease Status: Chronic Assessment and Plan: * HD todayand continue M/W/ dialysis schedule * follow electrolytes, volume status, and clearance (2) Aspiration pneumonia: Code(s): J69.0 - Pneumonitis due to inhalation of food and vomit Status: Acute Assessment and Plan: * as noted on presentation as well as by events earlier yesterday (04/25/22) * on antibiotics * follow culture results (3) Unresponsive episode: Code(s): R41.89 - Other symptoms and signs involving cognitive functions and awareness Status: Acute Assessment and Plan: * presumably precipitated by/caused by hypoxia... * since associated with oral intake, assumption is aspiration occurred leading to hypoxia and then unresponsiveness... * follow mentation closely * Neurology recommendations noted (4) Hypoxia: Code(s): R09.02 - Hypoxemia Status: Acute Assessment and Plan: * thought to be secondary to aspiration * continue supplemental oxygen * follow respiratory status * CTA of chest negative for PE (5) Insulin dependent type 2 diabetes mellitus: Onset Date: Unknown Code(s): E11.9 - Type 2 diabetes mellitus without complications; Z79.4 - manager long term care (current) use of insulin Status: Chronic Assessment and Plan: * follow accuchecks * glycemic control Will continue to follow. Subjective Date/time seen: 04/26/22 13:01 Tolerating dialysis treatment at the time of my visit without any issue or problems (seen on HD at ~ 12:50PM); mentation seems back to baseline; no apparent distress voiced; no issues/events ovenright or earlier this AM. Exam Narrative: General: elderly female in NAD Heart: normal S1 and S2; no rub Lungs: decreased at bases Abdomen: soft, nontender, nondistended, positive bowel sounds Extremities: no cyanosis or clubbing; no edema Skin: warm and dry Objective Data Vital Signs Vital Signs: Vital Signs Temp Pulse Resp BP Pulse Ox O2 Del Method O2 Flow Rate 04/26/22 10:45 97.7 F 76 16 173/63 H 95 04/26/22 04:00 97.9 F 80 14 116/57 L 90 04/26/22 04:00 78 04/26/22 00:00 98.9 F 78 22 H 164/61 H 95 04/25/22 20:00 97.6 F 72 16 167/45 H 95 04/26/22 00:00 77 04/25/22 21:30 76 04/25/22 15:30 93 Nasal Cannula 4 04/25/22 16:00 77 04/25/22 15:46 98.6 F 76 16 154/50 H 93 Intake/Output Intake/Output: Intake & Output 04/23/22 04/24/22 04/25/22 04/26/22 23:59 23:59 23:59 23:59 Intake Total 800 475 50 Balance 800 475 50 Meds/Results Medications: Active Medications Generic Name Dose Route Start Last Admin Trade Name Freq PRN Reason Stop Dose Admin Calcium Carbonate 500 mg 04/25/22 08:00 04/26/22 08:00 Calcium Carbonate (Oscal) 500 Mg Tablet PO Not Given 0800,1200,1700 [facility] Clopidogrel Bisulfate 75 mg 04/25/22 09:00 04/26/22 11:20 Clopidogrel Bisulfate 75 Mg Tablet PO 75 mg DAILY [facility] Administration Collagenase 1 applic 04/25/22 0
--- NOTE | 2022-04-26 13:01 | PM.PNNEP ---
Progress Note: A&P Assessment and Plan (1) ESRD (end stage renal disease): Code(s): N18.6 - End stage renal disease Status: Chronic Assessment and Plan: HD todayand continue M/W/ dialysis schedule follow electrolytes, volume status, and clearance (2) Aspiration pneumonia: Code(s): J69.0 - Pneumonitis due to inhalation of food and vomit Status: Acute Assessment and Plan: as noted on presentation as well as by events earlier yesterday (04/25/22) on antibiotics follow culture results (3) Unresponsive episode: Code(s): R41.89 - Other symptoms and signs involving cognitive functions and awareness Status: Acute Assessment and Plan: presumably precipitated by/caused by hypoxia... since associated with oral intake, assumption is aspiration occurred leading to hypoxia and then unresponsiveness... follow mentation closely Neurology recommendations noted (4) Hypoxia: Code(s): R09.02 - Hypoxemia Status: Acute Assessment and Plan: thought to be secondary to aspiration continue supplemental oxygen follow respiratory status CTA of chest negative for PE (5) Insulin dependent type 2 diabetes mellitus: Onset Date: Unknown Code(s): E11.9 - Type 2 diabetes mellitus without complications; Z79.4 - buttermaker continuous churn (current) use of insulin Status: Chronic Assessment and Plan: follow accuchecks glycemic control Will continue to follow. Subjective Date/time seen: 04/26/22 13:01 Tolerating dialysis treatment at the time of my visit without any issue or problems (seen on HD at ~ 12:50PM); mentation seems back to baseline; no apparent distress voiced; no issues/events ovenright or earlier this AM. Exam Narrative: General: elderly female in NAD Heart: normal S1 and S2; no rub Lungs: decreased at bases Abdomen: soft, nontender, nondistended, positive bowel sounds Extremities: no cyanosis or clubbing; no edema Skin: warm and dry Objective Data Vital Signs Vital Signs: Vital Signs Temp Pulse Resp BP Pulse Ox O2 Del Method O2 Flow Rate 04/26/22 10:45 97.7 F 76 16 173/63 H 95 04/26/22 04:00 97.9 F 80 14 116/57 L 90 04/26/22 04:00 78 04/26/22 00:00 98.9 F 78 22 H 164/61 H 95 04/25/22 20:00 97.6 F 72 16 167/45 H 95 04/26/22 00:00 77 04/25/22 21:30 76 04/25/22 15:30 93 Nasal Cannula 4 04/25/22 16:00 77 04/25/22 15:46 98.6 F 76 16 154/50 H 93 Intake/Output Intake/Output: Intake & Output 04/23/22 04/24/22 04/25/22 04/26/22 23:59 23:59 23:59 23:59 Intake Total 800 475 50 Balance 800 475 50 Meds/Results Medications: Active Medications Generic Name Dose Route Start Last Admin Trade Name Diogenes PRN Reason Stop Dose Admin Calcium Carbonate 500 mg 04/25/22 08:00 04/26/22 08:00 Calcium Carbonate (Oscal) 500 Mg Tablet PO Not Given 0800,1200,1700 [facility] Clopidogrel Bisulfate 75 mg 04/25/22 09:00 04/26/22 11:20 Clopidogrel Bisulfate 75 Mg Tablet PO 75 mg DAILY [facility] Administration Collagenase 1 applic 04/25/22 09:00 04/26/22 11:24 Collagenase Oint 30 Gm Tube TOPICAL 1 applic DAILY [facility] Administration Epoetin Salvador-epbx 10,000 units 04/26/22 17:00 Epoetin Salvador-Epbx 10,000 Units/Ml Vial IV PUSH 04/26/22 17:01 ONCE ONE Ferrous Sulfate 324 mg 04/25/22 09:00 04/26/22 11:21 Ferrous Sulfate 324 Mg Tablet PO 324 mg DAILY [facility] Administration Gabapentin 400 mg 04/25/22 21:00 04/25/22 20:20 Gabapentin 400 Mg Capsule PO Not Given HS [facility] Guanfacine HCl 1 mg 04/25/22 09:00 04/26/22 11:20 Guanfacine Hcl 1 Mg Tablet PO 1 mg DAILY [facility] Administration Heparin Sodium (Porcine) 5,000 units 04/25/22 14:00 04/26/22 05:52 Heparin Sodium 5,000 Units/Ml Vial SUB-Q 5,000 units Q8HR [facility] Administration Piperacillin Sod/Tazobactam Sod 2.25 gm in 50 mls @ 1
--- NOTE | 2022-04-26 15:23 | PM.IMPN ---
Progress Note: A&P Assessment and Plan (1) Unresponsive episode: Code(s): R41.89 - Other symptoms and signs involving cognitive functions and awareness Status: Acute Assessment and Plan: Patient had unresponsive episode while at outpatient dialysis and again yesterday afternoon while eating lunch.. Etiology for this unclear. Head CT on admission with no acute findings. Possibly related to hypoxic episode following aspiration. See plan below. patient alert and oriented today. Patient evaluated by Neurology who recommends follow-up with carotid Doppler and MRI. Continue to monitor on telemetry. (2) Hypoxia: Code(s): R09.02 - Hypoxemia Status: Acute Assessment and Plan: Patient noted to be hypoxic in the 70s yesterday afternoon following unresponsive episode. O2 sats improved after patient was placed on non-rebreather. CXR showed increased bilateral lower lung infiltrates concerning for aspiration pneumonia. believe the patient aspirated triggering episode of hypoxia. Patient currently maintaining adequate O2 sats on 4 L supplemental O2. CTA negative for pulmonary embolism. (3) Aspiration pneumonia: Code(s): J69.0 - Pneumonitis due to inhalation of food and vomit Status: Acute Assessment and Plan: CXR revealed mild bibasilar infiltrates and based on patient presentation, there was concern for aspiration. unresponsive episode while eating lunch yesterday, suspect repeat aspiration. Patient made NPO. Completed MBS today with recommendations for pureed diet with mildly thickened liquids which will be continued. Continue with speech therapy exercises. Continue IV Zosyn. aspiration precautions in place. Sputum culture ordered, awaiting collection. Blood cultures pending, negative to date. Lactic acid within normal limits. Supportive care. (4) Leukocytosis: Code(s): D72.829 - Elevated white blood cell count, unspecified Status: Acute Assessment and Plan: Very mild improvement today with white blood cell count 22.3.Suspect secondary to aspiration pneumonia. Continue broad-spectrum Zosyn. Monitor CBC with differential closely. (5) End-stage renal disease on hemodialysis: Code(s): N18.6 - End stage renal disease; Z99.2 - Dependence on renal dialysis Status: Acute Assessment and Plan: Maintained on hemodialysis on Sunday, Sunday, Sunday. Appreciate nephrology consultation to continue hemodialysis during admission. patient being dialyzed today (6) Peripheral vascular disease: Onset Date: Unknown Code(s): I73.9 - Peripheral vascular disease, unspecified Status: Acute Assessment and Plan: Established with vascular surgeon, Dr. Ocasio at [facility]. Status post left transmetatarsal amputation with recent debridement last week. Continue with dressing changes daily. Continue Plavix (7) Insulin dependent type 2 diabetes mellitus: Onset Date: Unknown Code(s): E11.9 - Type 2 diabetes mellitus without complications; Z79.4 - [facility]PC (current) use of insulin Status: Chronic Assessment and Plan: blood sugars are stable. Continue Accu-Cheks, sliding scale insulin, and hypoglycemic protocol. Check updated A1c (8) Cholelithiasis NOS: Code(s): K80.20 - Calculus of gallbladder without cholecystitis without obstruction Status: Acute Assessment and Plan: evident on CTA of the chest performed yesterday. This is not a new finding and patient has been evaluated by General surgery for this in the past. She is asymptomatic and tolerating her diet. No indications for surgical intervention. Plan Time Spent With Patient Time with patient: 25 - 35 minutes Subjective Date/time seen: 04/26/22 15:23 Interval history: date of service: 04/26/2022 Jing Alfredo is a 77-year-old female with a history of ESRD on hemodialysis, anemia chronic d
[2022-04-26] MEDS: CALCIUM CARBONATE (OSCAL) 500 MG TABLET PO (16:59)
[2022-04-26 20:51] LABS: Glucose Point of Care 204 mg/dl (65-105)
[2022-04-26] MEDS: GABAPENTIN 400 MG CAPSULE PO (21:35)
[2022-04-26] MEDS: INSULIN GLARGINE (*BKC) 100 UNITS/ML 10 UNITS SUB-Q (21:36)
[2022-04-27] VITALS (8 sets, daily range): BP systolic 153–190; BP diastolic 48–60; PULSE 66–82; RESP 18–28; TEMP 36.1–37.2; O2SAT 93–100
[2022-04-27] MEDS: LEVOTHYROXINE SODIUM 75 MCG TABLET PO (05:38)
[2022-04-27] MEDS: HEPARIN SODIUM 5,000 UNITS/ML VIAL 5000 UNITS SUB-Q ×3 (05:38→21:10)
[2022-04-27 06:15] LABS: Hematocrit 30.1 % (37.0-47.0); Hemoglobin 8.7 g/dL (12.0-15.0); Mean Corpuscular HGB Conc 28.9 g/dl (32-36); Mean Corpuscular Hemoglobin 28.6 pg (26-34); Mean Platelet Volume 9.4 fl (7.4-10.4); Platelet Count Result 283 k/mm3 (150-375); Red Blood Count 3.04 M/mm3 (4.2-5.4); Red Cell Distribution Width 17.9 % (11.5-14.5); White Blood Count 17.4 K/mm3 (4.5-10.0)
[2022-04-27 06:33] LABS: Anion Gap 5 mmol/L (8-16); Blood Urea Nitrogen 16 mg/dL (7-17); Calcium 8.3 mg/dL (8.4-10.2); Carbon Dioxide 31 mmol/L (22-30); Chloride 101 mmol/L (98-107); Estimated CRCL calculation 13 ml/min; Estimated Glomerular Filt Rate 15; Glucose 117 mg/dL (65-110); Potassium 3.7 mmol/L (3.4-5.0); Sodium 137 mmol/L (137-145)
[2022-04-27 08:09] LABS: Glucose Point of Care 137 mg/dl (65-105)
[2022-04-27] MEDS: CHOLECALCIFEROL 1,000 UNITS TABLET 5000 UNITS PO (09:12)
[2022-04-27] MEDS: COLLAGENASE OINT 30 GM TUBE 1 APPLIC TOPICAL (09:13)
[2022-04-27] MEDS: CALCIUM CARBONATE (OSCAL) 500 MG TABLET PO ×3 (09:13→17:44)
[2022-04-27] MEDS: guanFACINE HCL 1 MG TABLET PO (09:13)
[2022-04-27] MEDS: ISOSORBIDE MONONITRATE 30 MG TAB.ER.24H PO (09:13)
[2022-04-27] MEDS: CLOPIDOGREL BISULFATE 75 MG TABLET PO (09:13)
[2022-04-27] MEDS: FERROUS SULFATE 324 MG TABLET PO (09:13)
[2022-04-27] MEDS: polyethylene glycoL 3350 17 GM POWD.PACK PO (09:14)
[2022-04-27] MEDS: LIDOCAINE/PRILOCAINE CREAM 2.5-2.5% TUBE 1 EACH TOPICAL (09:14)
[2022-04-27] MEDS: INSULIN GLARGINE (*BKC) 100 UNITS/ML 36 UNITS SUB-Q (09:15)
[2022-04-27 12:01] LABS: Glucose Point of Care 250 mg/dl (65-105)
--- NOTE | 2022-04-27 13:17 | PM.PNNEP ---
Progress Note: A&P Assessment and Plan (1) ESRD (end stage renal disease): Code(s): N18.6 - End stage renal disease Status: Chronic Assessment and Plan: HD tomorrow and continue M/W/F dialysis schedule follow electrolytes, volume status, and clearance (2) Aspiration pneumonia: Code(s): J69.0 - Pneumonitis due to inhalation of food and vomit Status: Acute Assessment and Plan: as noted on presentation as well as by events on 04/25/22 on antibiotics follow culture results (3) Unresponsive episode: Code(s): R41.89 - Other symptoms and signs involving cognitive functions and awareness Status: Acute Assessment and Plan: presumably precipitated by/caused by hypoxia... since associated with oral intake, assumption is aspiration occurred leading to hypoxia and then unresponsiveness... follow mentation closely Neurology recommendations noted testing noted to date (4) Hypoxia: Code(s): R09.02 - Hypoxemia Status: Acute Assessment and Plan: thought to be secondary to aspiration continue supplemental oxygen follow respiratory status CTA of chest negative for PE (5) Insulin dependent type 2 diabetes mellitus: Onset Date: Unknown Code(s): E11.9 - Type 2 diabetes mellitus without complications; Z79.4 - long term (current) use of insulin Status: Chronic Assessment and Plan: follow accuchecks glycemic control Will continue to follow. Subjective Date/time seen: 04/27/22 13:17 Tolerated dialysis treatment yesterday without any issue or problems; no apparent distress voiced at the time of my visit; no events overnight or earlier this morning; no other complaints to report currently. Exam Narrative: General: elderly female in NAD Heart: normal S1 and S2; no rub Lungs: decreased at bases Abdomen: soft, nontender, nondistended, positive bowel sounds Extremities: no cyanosis or clubbing; no edema Skin: warm and intact Objective Data Vital Signs Vital Signs: Vital Signs Temp Pulse Resp BP Pulse Ox O2 Del Method O2 Flow Rate 04/27/22 08:00 94 Nasal Cannula 4 04/27/22 08:00 82 04/27/22 08:45 99.0 F 82 18 190/57 H 97 04/27/22 04:00 98.6 F 77 28 H 161/48 H 93 04/27/22 04:00 74 04/27/22 00:00 97 F L 75 22 H 162/50 H 99 04/27/22 00:00 79 04/26/22 23:47 85 20 98 Nasal Cannula 4 04/26/22 20:00 97.5 F L 86 20 155/51 H 98 04/26/22 21:30 85 04/26/22 16:00 89 04/26/22 18:00 97.8 F 89 20 173/48 H 97 04/26/22 15:44 98.1 F 57 L 20 159/53 H 04/26/22 15:44 88 102/52 L 04/26/22 15:40 94 109/56 L 04/26/22 15:20 94 119/57 L 04/26/22 15:00 95 123/56 L 04/26/22 14:40 93 126/61 04/26/22 14:20 94 119/62 04/26/22 14:00 89 113/62 04/26/22 13:40 90 140/61 04/26/22 13:20 89 129/61 Intake/Output Intake/Output: Intake & Output 04/24/22 04/25/22 04/26/22 04/27/22 23:59 23:59 23:59 23:59 Intake Total 800 475 340 170 Output Total 1999 Balance 800 475 -1660 170 Meds/Results Medications: Active Medications Generic Name Dose Route Start Last Admin Trade Name Diogenes PRN Reason Stop Dose Admin Calcium Carbonate 500 mg 04/25/22 08:00 04/27/22 12:36 Calcium Carbonate (Oscal) 500 Mg Tablet PO 500 mg 0800,1200,1700 [facility] Administration Clopidogrel Bisulfate 75 mg 04/25/22 09:00 04/27/22 09:13 Clopidogrel Bisulfate 75 Mg Tablet PO 75 mg DAILY [facility] Administration Collagenase 1 applic 04/25/22 09:00 04/27/22 09:13 Collagenase Oint 30 Gm Tube TOPICAL 1 applic DAILY [facility] Administration Dextrose 12.5 gm 04/26/22 19:31 Dextrose 50% 25 Gm/50 Ml Syringe IV PUSH PRN PRN Hypoglycemia Protocol Ferrous Sulfate 324 mg 04/25/22 09:00 04/27/22 09:13 Ferrous Sulfate 324 Mg Tablet PO 3
[2022-04-27 14:05] LABS: Hemoglobin A1C 6.3 % (<5.7)
--- NOTE | 2022-04-27 16:05 | PM.IMPN ---
Progress Note: A&P Assessment and Plan (1) Unresponsive episode: Code(s): R41.89 - Other symptoms and signs involving cognitive functions and awareness Status: Acute Assessment and Plan: Patient had unresponsive episode while at outpatient dialysis and again yesterday afternoon while eating lunch.. Etiology for this unclear. Head CT on admission with no acute findings. Possibly related to hypoxic episode following aspiration. See plan below. patient alert and oriented today. Patient evaluated by Neurology who recommends follow-up with carotid Doppler and MRI. reviewed results of carotid Doppler today which revealed less than 50% stenosis of the bilateral internal carotid arteries. Awaiting MRI. Continue to monitor on telemetry. (2) Hypoxia: Code(s): R09.02 - Hypoxemia Status: Acute Assessment and Plan: Patient noted to be hypoxic in the 70s on 04/25following unresponsive episode. O2 sats improved after patient was placed on non-rebreather. CXR showed increased bilateral lower lung infiltrates concerning for aspiration pneumonia. believe the patient aspirated triggering episode of hypoxia. Patient currently maintaining adequate O2 sats on 4 L supplemental O2. CTA negative for pulmonary embolism. continue to wean oxygen as tolerated (3) Aspiration pneumonia: Code(s): J69.0 - Pneumonitis due to inhalation of food and vomit Status: Acute Assessment and Plan: CXR revealed mild bibasilar infiltrates and based on patient presentation, there was concern for aspiration. unresponsive episode while eating lunch on 04/25, suspect repeat aspiration. patient was initially made NPO while awaiting MBS which was completed yesterday. Recommendations for pureed diet with mildly thickened liquids which will be continued. Continue with speech therapy exercises. Continue IV Zosyn. aspiration precautions in place. Sputum culture ordered, awaiting collection. Blood cultures pending, negative to date. Lactic acid within normal limits. Supportive care. (4) Leukocytosis: Code(s): D72.829 - Elevated white blood cell count, unspecified Status: Acute Assessment and Plan: Improving today down to 17. .Suspect secondary to aspiration pneumonia. Continue broad-spectrum Zosyn. Monitor CBC with differential closely. (5) End-stage renal disease on hemodialysis: Code(s): N18.6 - End stage renal disease; Z99.2 - Dependence on renal dialysis Status: Acute Assessment and Plan: Maintained on hemodialysis on Sunday, Sunday, Sunday. Appreciate nephrology consultation to continue hemodialysis during admission. Last dialysis yesterday, 04/26 (6) Peripheral vascular disease: Onset Date: Unknown Code(s): I73.9 - Peripheral vascular disease, unspecified Status: Acute Assessment and Plan: Established with vascular surgeon, Dr. Ocasio at [facility]. Status post left transmetatarsal amputation with recent debridement on 04/20. Continue with dressing changes daily. Continue Plavix (7) Insulin dependent type 2 diabetes mellitus: Onset Date: Unknown Code(s): E11.9 - Type 2 diabetes mellitus without complications; Z79.4 - [facility] (current) use of insulin Status: Chronic Assessment and Plan: A1c is 6.3. blood sugars are stable. Continue Accu-Cheks, sliding scale insulin, and hypoglycemic protocol. (8) Cholelithiasis NOS: Code(s): K80.20 - Calculus of gallbladder without cholecystitis without obstruction Status: Acute Assessment and Plan: incidentally noted on on CTA of the chest. This is not a new finding and patient has been evaluated by General surgery for this in the past. Reviewed prior general surgery notes. She is asymptomatic and tolerating her diet. No indications for surgical intervention. Plan Time Spent With Patient Time with patient: Greater than
[2022-04-27 17:12] LABS: Glucose Point of Care 202 mg/dl (65-105)
[2022-04-27 20:41] LABS: Glucose Point of Care 155 mg/dl (65-105)
[2022-04-27] MEDS: INSULIN GLARGINE (*BKC) 100 UNITS/ML 10 UNITS SUB-Q (21:09)
[2022-04-27] MEDS: GABAPENTIN 400 MG CAPSULE PO (21:10)
[2022-04-28] VITALS (23 sets, daily range): BP systolic 112–182; BP diastolic 44–76; PULSE 64–93; RESP 14–20; TEMP 36–36.7; O2SAT 94–100
[2022-04-28] MEDS: HEPARIN SODIUM 5,000 UNITS/ML VIAL 5000 UNITS SUB-Q ×3 (05:57→21:57)
[2022-04-28] MEDS: LEVOTHYROXINE SODIUM 75 MCG TABLET PO (05:57)
[2022-04-28 06:56] LABS: Basophils Absolute Auto 0.1 K/mm3 (0.0-0.1); Basophils Percent Auto 0.4 % (0.2-1.2); Eosinophils Absolute Auto 0.7 K/mm3 (0-0.3); Eosinophils Percent Auto 4.2 % (0-4.4); Hematocrit 29.2 % (37.0-47.0); Hemoglobin 8.5 g/dL (12.0-15.0); Immature Granulocyte Absolute 0.21 K/mm3 (0.00-0.031); Immature Granulocyte Percent A 1.2 % (0-0.5); Lymphocytes Percent Auto 8.8 % (18.3-44.2); Mean Corpuscular HGB Conc 29.1 g/dl (32-36); Mean Corpuscular Hemoglobin 28.9 pg (26-34); Mean Corpuscular Volume 99.3 fl (80-100); Mean Platelet Volume 9.4 fl (7.4-10.4); Monocytes Absolute Auto 1.4 K/mm3 (0.1-0.6); Monocytes Percent Auto 8.3 % (2.6-8.5); Neutrophils Absolute Auto 13.1 K/mm3 (1.3-6.7); Neutrophils Percent Auto 77.1 % (45.5-73.1); Platelet Count Result 271 k/mm3 (150-375); Red Blood Count 2.94 M/mm3 (4.2-5.4); Red Cell Distribution Width 17.8 % (11.5-14.5)
[2022-04-28 07:10] LABS: Anion Gap 7 mmol/L (8-16); Blood Urea Nitrogen 25 mg/dL (7-17); Calcium 8.4 mg/dL (8.4-10.2); Carbon Dioxide 26 mmol/L (22-30); Chloride 103 mmol/L (98-107); Estimated CRCL calculation 11 ml/min; Estimated Glomerular Filt Rate 12; Glucose 77 mg/dL (65-110); Potassium 3.8 mmol/L (3.4-5.0); Sodium 136 mmol/L (137-145)
[2022-04-28] MEDS: CLOPIDOGREL BISULFATE 75 MG TABLET PO (08:19)
[2022-04-28] MEDS: ISOSORBIDE MONONITRATE 30 MG TAB.ER.24H PO (08:19)
[2022-04-28] MEDS: guanFACINE HCL 1 MG TABLET PO (08:19)
[2022-04-28] MEDS: FERROUS SULFATE 324 MG TABLET PO (08:19)
[2022-04-28] MEDS: CHOLECALCIFEROL 1,000 UNITS TABLET 5000 UNITS PO (08:19)
[2022-04-28] MEDS: CALCIUM CARBONATE (OSCAL) 500 MG TABLET PO ×3 (08:19→16:58)
[2022-04-28] MEDS: LIDOCAINE/PRILOCAINE CREAM 2.5-2.5% TUBE 1 EACH TOPICAL (08:20)
[2022-04-28] MEDS: COLLAGENASE OINT 30 GM TUBE 1 APPLIC TOPICAL (08:20)
[2022-04-28] MEDS: polyethylene glycoL 3350 17 GM POWD.PACK PO (08:20)
[2022-04-28] MEDS: INSULIN GLARGINE (*BKC) 100 UNITS/ML 36 UNITS SUB-Q (08:20)
[2022-04-28 08:23] LABS: Glucose Point of Care 82 mg/dl (65-105)
[2022-04-28] MEDS: SODIUM CHLORIDE 0.9% IV 1,000 ML 999 ML IV CONT (09:32)
--- NOTE | 2022-04-28 10:24 | PCSTNOTE ---
Patient in dialysis 8:30 am when therapist attempted ST session. Nurse reports patient has been consuming meals and tolerating pills with thickened liquids with no evidence of penetration/aspiration. All safe swallowing techniques/guidelines are posted on patient's white board and have been followed well.
[2022-04-28 11:46] LABS: Glucose Point of Care 105 mg/dl (65-105)
--- NOTE | 2022-04-28 11:46 | PM.PNNEP ---
Progress Note: A&P Assessment and Plan (1) ESRD (end stage renal disease): Code(s): N18.6 - End stage renal disease Status: Chronic Assessment and Plan: HD today and continue M/W/F dialysis schedule follow electrolytes, volume status, and clearance (2) Aspiration pneumonia: Code(s): J69.0 - Pneumonitis due to inhalation of food and vomit Status: Acute Assessment and Plan: as noted on presentation as well as by events on 04/25/22 on antibiotics follow culture results (3) Unresponsive episode: Code(s): R41.89 - Other symptoms and signs involving cognitive functions and awareness Status: Acute Assessment and Plan: presumably precipitated by/caused by hypoxia... since associated with oral intake, assumption is aspiration occurred leading to hypoxia and then unresponsiveness... follow mentation closely Neurology recommendations noted testing noted to date (4) Hypoxia: Code(s): R09.02 - Hypoxemia Status: Acute Assessment and Plan: thought to be secondary to aspiration continue supplemental oxygen follow respiratory status CTA of chest negative for PE (5) Insulin dependent type 2 diabetes mellitus: Onset Date: Unknown Code(s): E11.9 - Type 2 diabetes mellitus without complications; Z79.4 - custodial (current) use of insulin Status: Chronic Assessment and Plan: follow accuchecks glycemic control Will continue to follow. Subjective Date/time seen: 04/28/22 11:46 Tolerating dialysis treatment at the time of my visit (seen on HD at 11:30AM); no apparent distress voiced currently; no events overnight or earlier this AM; feels reasonably stable. Exam Narrative: General: elderly female in NAD Heart: normal S1 and S2; no rub Lungs: decreased at bases Abdomen: soft, nontender, nondistended, positive bowel sounds Extremities: no cyanosis or clubbing; no edema Skin: warm and intact Objective Data Vital Signs Vital Signs: Vital Signs Temp Pulse Resp BP Pulse Ox O2 Del Method O2 Flow Rate 04/28/22 11:46 93 112/52 L 04/28/22 11:30 78 118/54 L 04/28/22 11:10 79 122/58 L 04/28/22 10:50 78 120/53 L 04/28/22 10:30 79 128/61 04/28/22 10:10 77 127/57 L 04/28/22 09:59 94 Nasal Cannula 4 01/20/23 09:50 77 117/55 L 04/28/22 08:00 98 Nasal Cannula 4 04/28/22 08:00 68 04/28/22 09:30 77 116/56 L 04/28/22 09:10 71 114/55 L 04/28/22 08:35 4 04/28/22 08:35 98.0 F 71 16 143/64 H 04/28/22 08:49 72 140/62 04/28/22 04:00 97.3 F L 73 20 171/54 H 98 04/28/22 04:00 70 04/28/22 00:00 97.1 F L 69 20 158/60 H 96 04/28/22 00:00 68 04/27/22 20:00 97.6 F 70 20 165/60 H 100 04/27/22 20:00 98 4 04/27/22 20:00 69 04/27/22 16:00 66 04/27/22 15:48 97.6 F 66 18 153/50 H 98 Intake/Output Intake/Output: Intake & Output 04/25/22 04/26/22 04/27/22 04/28/22 23:59 23:59 23:59 23:59 Intake Total 475 340 800 140 Output Total 2000 Balance 475 -1660 800 140 Meds/Results Medications: Active Medications Generic Name Dose Route Start Last Admin Trade Name Diogenes PRN Reason Stop Dose Admin Calcium Carbonate 500 mg 04/25/22 08:00 04/28/22 08:19 Calcium Carbonate (Oscal) 500 Mg Tablet PO 500 mg 0800,1200,1700 OSIEL Administration Clopidogrel Bisulfate 75 mg 04/25/22 09:00 04/28/22 08:19 Clopidogrel Bisulfate 75 Mg Tablet PO 75 mg DAILY OSIEL Administration Collagenase 1 applic 04/25/22 09:00 04/28/22 08:20 Collagenase Oint 30 Gm Tube TOPICAL 1 applic DAILY OSIEL Administration Dextrose 12.5 gm 04/26/22 19:31 Dextrose 50% 25 Gm/50 Ml Syringe IV PUSH PRN PRN Hypoglycemia Protocol Epoetin Salvador-epbx 10,000 units 04/28/22 21:26 Epoetin Salvador-Epbx 10,000 Units/Ml Vi
[2022-04-28 12:21] LABS: Alveolar/Arterial O2 Gradient 144.3 mmHg; Base Excess ABG 5.5 mEq/l (+/-2.0); Carboxyhemoglobin 0.3 % THb (0-2.0); Fractional Inspired Oxygen 36 %; HCO3 ABG 29.6 mEq/l (22.0-26.0); Methemoglobin ABG 0.2 %THb (0-1.5); Oxygen Content ABG 13.5 %vol (16.0-22.0); Oxygen Saturation ABG 93.7 % (95.0-100.0); Oxyhemoglobin 91.3 % THb (90.0-100.0); PCO2 ABG 41.5 mmHg (35.0-45.0); PO2 ABG 64.2 mmHg (80.0-100.0); PO2 FiO2 Ratio Arterial Blood 1.78 %; Reduced Hemoglobin 8.2 %THb (0-5.0); Total Hemoglobin 10.5 g/dL (12.0-18.0); pH ABG 7.471 (7.350-7.450)
[2022-04-28 12:22] LABS: Device NASAL CANNULA; Site Drawn RIGHT BRACHIAL
[2022-04-28 12:25] LABS: Basophils Absolute Auto 0.1 K/mm3 (0.0-0.1); Basophils Percent Auto 0.6 % (0.2-1.2); Eosinophils Absolute Auto 0.5 K/mm3 (0-0.3); Eosinophils Percent Auto 3.2 % (0-4.4); Hematocrit 31.2 % (37.0-47.0); Hemoglobin 9.2 g/dL (12.0-15.0); Immature Granulocyte Absolute 0.42 K/mm3 (0.00-0.031); Immature Granulocyte Percent A 2.6 % (0-0.5); Lymphocytes Absolute Auto 1.74 K/mm3 (0.9-3.2); Lymphocytes Percent Auto 10.6 % (18.3-44.2); Mean Corpuscular HGB Conc 29.5 g/dl (32-36); Mean Corpuscular Hemoglobin 28.9 pg (26-34); Mean Corpuscular Volume 98.1 fl (80-100); Mean Platelet Volume 9.1 fl (7.4-10.4); Monocytes Absolute Auto 1.3 K/mm3 (0.1-0.6); Neutrophils Absolute Auto 12.3 K/mm3 (1.3-6.7); Platelet Count Result 280 k/mm3 (150-375); Red Blood Count 3.18 M/mm3 (4.2-5.4); Red Cell Distribution Width 17.6 % (11.5-14.5); White Blood Count 16.4 K/mm3 (4.5-10.0)
[2022-04-28 12:46] LABS: Alanine Aminotransferase 25 U/L (6-35); Albumin Level 3.2 g/dL (3.5-5.1); Alkaline Phosphatase 77 U/L (38-126); Anion Gap 5 mmol/L (8-16); Aspartate Amino Transferase 47 U/L (14-36); Bilirubin,Total 0.5 mg/dL (0.2-1.3); Blood Urea Nitrogen 9 mg/dL (7-17); Calcium 8.2 mg/dL (8.4-10.2); Carbon Dioxide 31 mmol/L (22-30); Chloride 104 mmol/L (98-107); Estimated CRCL calculation 25 ml/min; Estimated Glomerular Filt Rate 31; Glucose 120 mg/dL (65-110); Magnesium 1.8 mg/dL (1.6-2.3); Potassium 3.2 mmol/L (3.4-5.0); Sodium 140 mmol/L (137-145)
--- NOTE | 2022-04-28 15:29 | PM.IMPN ---
Progress Note: A&P Assessment and Plan (1) Unresponsive episode: Code(s): R41.89 - Other symptoms and signs involving cognitive functions and awareness Status: Acute Assessment and Plan: Patient had unresponsive episode while at outpatient dialysis prior to admission and again on 04/26 while eating lunch. Etiology for this unclear. Head CT on admission with no acute findings. Possibly related to hypoxic episode following aspiration. See plan below. Patient evaluated by Neurology who recommends follow-up with carotid Doppler and MRI. reviewed results of carotid Doppler which revealed less than 50% stenosis of the bilateral internal carotid arteries. MRI ordered, however awaiting information regarding cardiac and left lower extremity stent. Orders placed to obtain records. Continue to monitor on telemetry. Additional episode of poor arousability today. See subjective for further details. Continue with plan of care. Await MRI (2) Hypoxia: Code(s): R09.02 - Hypoxemia Status: Acute Assessment and Plan: Patient noted to be hypoxic in the 70s on 04/25 following unresponsive episode. O2 sats improved after patient was placed on non-rebreather. CXR showed increased bilateral lower lung infiltrates concerning for aspiration pneumonia. believe the patient aspirated triggering episode of hypoxia. Patient currently maintaining adequate O2 sats on 4 L supplemental O2. CTA negative for pulmonary embolism. continue to wean oxygen as tolerated (3) Aspiration pneumonia: Code(s): J69.0 - Pneumonitis due to inhalation of food and vomit Status: Acute Assessment and Plan: CXR revealed mild bibasilar infiltrates and based on patient presentation, there was concern for aspiration. unresponsive episode while eating lunch on 04/25, suspect repeat aspiration. patient was initially made NPO while awaiting MBS which was completed on 04/26. Recommendations for pureed diet with mildly thickened liquids which will be continued. Continue with speech therapy exercises. Continue IV Zosyn. aspiration precautions in place. Sputum culture ordered, awaiting collection. Blood cultures pending, negative to date. Lactic acid within normal limits. Supportive care. (4) Leukocytosis: Code(s): D72.829 - Elevated white blood cell count, unspecified Status: Acute Assessment and Plan: Improving today down to 17. .Suspect secondary to aspiration pneumonia. Continue broad-spectrum Zosyn. Monitor CBC with differential closely. (5) End-stage renal disease on hemodialysis: Code(s): N18.6 - End stage renal disease; Z99.2 - Dependence on renal dialysis Status: Acute Assessment and Plan: Maintained on hemodialysis on Sunday, Sunday, Sunday. Appreciate nephrology consultation to continue hemodialysis during admission. Patient received dialysis today, however was cut slightly short due to episode of poor arousability (6) Peripheral vascular disease: Onset Date: Unknown Code(s): I73.9 - Peripheral vascular disease, unspecified Status: Acute Assessment and Plan: Established with vascular surgeon, Dr. Ocasio at [facility]. Status post left transmetatarsal amputation with recent debridement on 04/20. Continue with dressing changes daily. Continue Plavix. Request to obtain records regarding left lower extremity stent from Dr. Ocasio in order to proceed with MRI. 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 blood sugars are stable. Continue Accu-Cheks, sliding scale insulin, and hypoglycemic protocol. (8) Cholelithiasis NOS: Code(s): K80.20 - Calculus of gallbladder without cholecystitis without obstruction Status: C
[2022-04-28 17:22] LABS: Glucose Point of Care 179 mg/dl (65-105)
[2022-04-28 20:54] LABS: Glucose Point of Care 146 mg/dl (65-105)
[2022-04-28] MEDS: INSULIN GLARGINE (*BKC) 100 UNITS/ML 10 UNITS SUB-Q (21:53)
[2022-04-28] MEDS: GABAPENTIN 400 MG CAPSULE PO (21:57)
[2022-04-29] VITALS (10 sets, daily range): BP systolic 139–182; BP diastolic 43–51; PULSE 52–87; RESP 14–16; TEMP 35.9–36.2; O2SAT 92–100
[2022-04-29] MEDS: HEPARIN SODIUM 5,000 UNITS/ML VIAL 5000 UNITS SUB-Q ×3 (05:13→21:18)
[2022-04-29] MEDS: LEVOTHYROXINE SODIUM 75 MCG TABLET PO (05:14)
[2022-04-29 06:04] LABS: Basophils Absolute Auto 0.1 K/mm3 (0.0-0.1); Basophils Percent Auto 0.8 % (0.2-1.2); Eosinophils Absolute Auto 0.6 K/mm3 (0-0.3); Eosinophils Percent Auto 4.3 % (0-4.4); Hematocrit 29.9 % (37.0-47.0); Hemoglobin 8.7 g/dL (12.0-15.0); Immature Granulocyte Absolute 0.36 K/mm3 (0.00-0.031); Immature Granulocyte Percent A 2.5 % (0-0.5); Lymphocytes Absolute Auto 1.51 K/mm3 (0.9-3.2); Lymphocytes Percent Auto 10.7 % (18.3-44.2); Mean Corpuscular HGB Conc 29.1 g/dl (32-36); Mean Corpuscular Hemoglobin 28.8 pg (26-34); Mean Platelet Volume 9.7 fl (7.4-10.4); Monocytes Absolute Auto 1.1 K/mm3 (0.1-0.6); Neutrophils Absolute Auto 10.5 K/mm3 (1.3-6.7); Neutrophils Percent Auto 73.7 % (45.5-73.1); Platelet Count Result 274 k/mm3 (150-375); Red Blood Count 3.02 M/mm3 (4.2-5.4); Red Cell Distribution Width 17.7 % (11.5-14.5); White Blood Count 14.2 K/mm3 (4.5-10.0)
[2022-04-29 06:19] LABS: Alanine Aminotransferase 22 U/L (6-35); Alkaline Phosphatase 55 U/L (38-126); Anion Gap 5 mmol/L (8-16); Aspartate Amino Transferase 42 U/L (14-36); Bilirubin,Total 0.3 mg/dL (0.2-1.3); Blood Urea Nitrogen 20 mg/dL (7-17); Calcium 8.3 mg/dL (8.4-10.2); Carbon Dioxide 32 mmol/L (22-30); Chloride 101 mmol/L (98-107); Estimated CRCL calculation 15 ml/min; Estimated Glomerular Filt Rate 17; Glucose 73 mg/dL (65-110); Potassium 3.7 mmol/L (3.4-5.0); Sodium 138 mmol/L (137-145)
[2022-04-29 07:58] LABS: Glucose Point of Care 72 mg/dl (65-105)
--- NOTE | 2022-04-29 08:28 | ECG_ITS ---
Measurements Intervals [place] Rate: 68 P: -33 NH: 159 QRS: 6 QRSD: 102 T: -5 QT: 435 QTc: 464 Interpretive Statements SINUS RHYTHM BORDERLINE T WAVE ABNORMALITY- INFERIOR LEADS BASELINE WANDER- V6 BORDERLINE ECG COMPARED TO ECG 04/24/2022 15:42:53 NO SIGNIFICANT CHANGES Electronically Signed On 04-29-2022 10:09:25 [employer] by Floyd Multani D.O.
[2022-04-29 10:25] LABS: Troponin I < 0.012 ng/mL (0.000-0.034)
[2022-04-29] MEDS: FERROUS SULFATE 324 MG TABLET PO (10:43)
[2022-04-29] MEDS: ISOSORBIDE MONONITRATE 30 MG TAB.ER.24H PO (10:43)
[2022-04-29] MEDS: CALCIUM CARBONATE (OSCAL) 500 MG TABLET PO ×3 (10:43→16:23)
[2022-04-29] MEDS: guanFACINE HCL 1 MG TABLET PO (10:43)
[2022-04-29] MEDS: CHOLECALCIFEROL 1,000 UNITS TABLET 5000 UNITS PO (10:43)
[2022-04-29] MEDS: CLOPIDOGREL BISULFATE 75 MG TABLET PO (10:43)
[2022-04-29] MEDS: COLLAGENASE OINT 30 GM TUBE 1 APPLIC TOPICAL (10:52)
[2022-04-29] MEDS: LIDOCAINE/PRILOCAINE CREAM 2.5-2.5% TUBE 1 EACH TOPICAL (10:52)
[2022-04-29 11:29] LABS: Glucose Point of Care 174 mg/dl (65-105)
[2022-04-29] MEDS: ACETAMINOPHEN 325 MG TABLET 650 MG PO (12:19)
--- NOTE | 2022-04-29 12:22 | PM.PNNEP ---
Progress Note: A&P Assessment and Plan (1) ESRD (end stage renal disease): Code(s): N18.6 - End stage renal disease Status: Chronic Assessment and Plan: HD yesterday and continue M/W/ dialysis schedule follow electrolytes, volume status, and clearance (2) Aspiration pneumonia: Code(s): J69.0 - Pneumonitis due to inhalation of food and vomit Status: Acute Assessment and Plan: as noted on presentation as well as by events on 04/25/22 on antibiotics follow culture results (3) Unresponsive episode: Code(s): R41.89 - Other symptoms and signs involving cognitive functions and awareness Status: Acute Assessment and Plan: presumably precipitated by/caused by hypoxia... since associated with oral intake, assumption is aspiration occurred leading to hypoxia and then unresponsiveness... HOWEVER, most recent episode (on 04/28/22) was not associated with eating/oral intake... follow mentation closely Neurology recommendations noted testing noted to date (4) Hypoxia: Code(s): R09.02 - Hypoxemia Status: Acute Assessment and Plan: thought to be secondary to aspiration continue supplemental oxygen follow respiratory status CTA of chest negative for PE (5) Insulin dependent type 2 diabetes mellitus: Onset Date: Unknown Code(s): E11.9 - Type 2 diabetes mellitus without complications; Z79.4 - half-way (current) use of insulin Status: Chronic Assessment and Plan: follow accuchecks glycemic control Will continue to follow. Subjective Date/time seen: 04/29/22 12:22 Events noted toward the end of dialysis treatment yesterday -- episode of unresponsiveness with only 10 minutes left of treatment -- this was not associated with eating as on previous instances; no other issues/problems/symptoms prior to or after the event; this apparently is exactly what happened at her outpatient dialysis unit that led to this hospitalization; she appears to be back to baseline currently. Exam Narrative: General: elderly female in NAD Heart: normal S1 and S2; no rub Lungs: decreased at bases Abdomen: soft, nontender, nondistended, positive bowel sounds Extremities: no cyanosis or clubbing; no edema Skin: warm and intact Objective Data Vital Signs Vital Signs: Vital Signs Temp Pulse Resp BP Pulse Ox O2 Del Method O2 Flow Rate 04/29/22 12:00 96.6 F L 52 L 16 139/51 L 100 04/29/22 04:00 97.1 F L 66 16 178/43 H 99 04/29/22 04:00 64 04/29/22 00:00 64 04/28/22 20:00 67 04/28/22 20:00 82 14 96 Nasal Cannula 4 04/28/22 20:00 97.8 F 64 14 155/47 H 100 04/28/22 21:22 82 96 Nasal Cannula 4 04/28/22 18:30 97.5 F L 72 18 142/45 H 99 Intake/Output Intake/Output: Intake & Output 04/26/22 04/27/22 04/28/22 04/29/22 23:59 23:59 23:59 23:59 Intake Total 340 850 460 528 Output Total 1999 2281 Ojrfbph -3214 850 1827 528 Meds/Results Medications: Active Medications Generic Name Dose Route Start Last Admin Trade Name Freq PRN Reason Stop Dose Admin Acetaminophen 650 mg 04/29/22 07:00 04/29/22 12:19 Acetaminophen 325 Mg Tablet PO 650 mg Q6H PRN Administration Mild Pain (1-3) or Fever Calcium Carbonate 500 mg 04/25/22 08:00 04/29/22 16:23 Calcium Carbonate (Oscal) 500 Mg Tablet PO 500 mg 0800,1200,1700 OSIEL Administration Clopidogrel Bisulfate 75 mg 04/25/22 09:00 04/29/22 10:43 Clopidogrel Bisulfate 75 Mg Tablet PO 75 mg DAILY OSIEL Administration Collagenase 1 applic 04/25/22 09:00 04/29/22 10:52 Collagenase Oint 30 Gm Tube TOPICAL 1 applic DAILY OSIEL Administration Dextrose 12.5 gm 04/26/22 19:31 Dextrose 50% 25 Gm/50 Ml Syringe IV PUSH PRN PRN Hypoglycemia Protocol Ferrous Sulfate 324 mg 04/25/22 09:00 04/29/22 10:43 Ferrous Sulfate 324 Mg Tablet PO 32
--- NOTE | 2022-04-29 12:22 | P.PNNP_ITS ---
Progress Note: A&P Assessment and Plan (1) ESRD (end stage renal disease): Code(s): N18.6 - End stage renal disease Status: Chronic Assessment and Plan: * HD yesterday and continue M/W/ dialysis schedule * follow electrolytes, volume status, and clearance (2) Aspiration pneumonia: Code(s): J69.0 - Pneumonitis due to inhalation of food and vomit Status: Acute Assessment and Plan: * as noted on presentation as well as by events on 04/25/22 * on antibiotics * follow culture results (3) Unresponsive episode: Code(s): R41.89 - Other symptoms and signs involving cognitive functions and awareness Status: Acute Assessment and Plan: * presumably precipitated by/caused by hypoxia... * since associated with oral intake, assumption is aspiration occurred leading to hypoxia and then unresponsiveness... * HOWEVER, most recent episode (on 04/28/22) was not associated with eating/oral intake... * follow mentation closely * Neurology recommendations noted * testing noted to date (4) Hypoxia: Code(s): R09.02 - Hypoxemia Status: Acute Assessment and Plan: * thought to be secondary to aspiration * continue supplemental oxygen * follow respiratory status * CTA of chest negative for PE (5) Insulin dependent type 2 diabetes mellitus: Onset Date: Unknown Code(s): E11.9 - Type 2 diabetes mellitus without complications; Z79.4 - [facility] (current) use of insulin Status: Chronic Assessment and Plan: * follow accuchecks * glycemic control Will continue to follow. Subjective Date/time seen: 04/29/22 12:22 Events noted toward the end of dialysis treatment yesterday -- episode of unresponsiveness with only 10 minutes left of treatment -- this was not associated with eating as on previous instances; no other issues/problems/symptoms prior to or after the event; this apparently is exactly what happened at her outpatient dialysis unit that led to this hospitalization; she appears to be back to baseline currently. Exam Narrative: General: elderly female in NAD Heart: normal S1 and S2; no rub Lungs: decreased at bases Abdomen: soft, nontender, nondistended, positive bowel sounds Extremities: no cyanosis or clubbing; no edema Skin: warm and intact Objective Data Vital Signs Vital Signs: Vital Signs Temp Pulse Resp BP Pulse Ox O2 Del Method O2 Flow Rate 04/29/22 12:00 96.6 F L 52 L 16 139/51 L 100 04/29/22 04:00 97.1 F L 66 16 178/43 H 99 04/29/22 04:00 64 04/29/22 00:00 64 04/28/22 20:00 67 04/28/22 20:00 82 14 96 Nasal Cannula 4 04/28/22 20:00 97.8 F 64 14 155/47 H 100 04/28/22 21:22 82 96 Nasal Cannula 4 04/28/22 18:30 97.5 F L 72 18 142/45 H 99 Intake/Output Intake/Output: Intake & Output 04/26/22 04/27/22 04/28/22 04/29/22 23:59 23:59 23:59 23:59 Intake Total 340 413 460 528 Output Total 1999 4373 Xtmrzav -1372 457 -7382 846 Meds/Results Medications: Active Medications Generic Name Dose Route Start Last Admin Trade Name Freq PRN Reason Stop Dose Admin Acetaminophen 650 mg 04/29/22 07:
[2022-04-29 13:53] LABS: Folic Acid 15.2 ng/mL (2.76->20)
--- NOTE | 2022-04-29 14:43 | PM.IMPN ---
Progress Note: A&P Assessment and Plan (1) Unresponsive episode: Code(s): R41.89 - Other symptoms and signs involving cognitive functions and awareness Status: Acute Assessment and Plan: Patient with a total of 3 unresponsive episodes over the past 5 days, two of which occurred during dialysis. Etiology for this unclear. Head CT on admission with no acute findings. Possibly related to hypoxia. No evidence of cardiogenic etiology. EKG unchanged, pt remains in normal sinus rhythm, and troponin negative. TSH, B12, folate within normal limits. Head CT with no acute findings. Carotid Doppler with <50% stenosis of bilateral internal carotid arteries. ABG with mild hypoxia, no evidence of hypercapnia. will obtain apnea link. MRI ordered, awaiting further information regarding patient's lower extremity stents before this can be completed. Attempting to obtain make/ model information from patient's vascular surgeon. appreciate neurology consultation. Patient may benefit from EEG. (2) Hypoxia: Code(s): R09.02 - Hypoxemia Status: Acute Assessment and Plan: Patient noted to be hypoxic in the 70s on 04/25 following unresponsive episode. O2 sats improved after patient was placed on non-rebreather. CXR showed increased bilateral lower lung infiltrates concerning for aspiration pneumonia. Patient currently maintaining adequate O2 sats on 4 L supplemental O2. CTA negative for pulmonary embolism. continue to wean oxygen as tolerated (3) Aspiration pneumonia: Code(s): J69.0 - Pneumonitis due to inhalation of food and vomit Status: Acute Assessment and Plan: CXR revealed mild bibasilar infiltrates and based on patient presentation, there was concern for aspiration. unresponsive episode with hypoxia while eating lunch on 04/25, suspect repeat aspiration. patient was initially made NPO while awaiting MBS which was completed on 04/26. Recommendations for pureed diet with mildly thickened liquids which will be continued. Continue with speech therapy exercises. Continue IV Zosyn. aspiration precautions in place. Sputum culture ordered, awaiting collection. Blood cultures pending, negative to date. Lactic acid within normal limits. Supportive care. (4) Leukocytosis: Code(s): D72.829 - Elevated white blood cell count, unspecified Status: Acute Assessment and Plan: Improving today down to 14 .Suspect secondary to aspiration pneumonia. Continue Zosyn. Monitor CBC with differential closely. (5) End-stage renal disease on hemodialysis: Code(s): N18.6 - End stage renal disease; Z99.2 - Dependence on renal dialysis Status: Acute Assessment and Plan: Maintained on hemodialysis on Sunday, Sunday, Sunday. Appreciate nephrology consultation to continue hemodialysis during admission. Last dialysis on 04/28/2022 (6) Peripheral vascular disease: Onset Date: Unknown Code(s): I73.9 - Peripheral vascular disease, unspecified Status: Acute Assessment and Plan: Established with vascular surgeon, Dr. Ocasio at [facility]. Status post left transmetatarsal amputation with recent debridement on 04/20. Continue with dressing changes daily. Continue Plavix. Request to obtain records regarding left lower extremity stent from Dr. Ocasio in order to proceed with MRI. 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 Blood sugars are stable. continue home Lantus. Continue Accu-Cheks, sliding scale insulin, and hypoglycemic protocol. (8) Cholelithiasis NOS: Code(s): K80.20 - Calculus of gallbladder without cholecystitis without obstruction
[2022-04-29 16:52] LABS: Glucose Point of Care 165 mg/dl (65-105)
[2022-04-29] MEDS: INSULIN GLARGINE (*BKC) 100 UNITS/ML 10 UNITS SUB-Q (21:16)
[2022-04-29 21:32] LABS: Glucose Point of Care 166 mg/dl (65-105)
[2022-04-29] MEDS: GABAPENTIN 400 MG CAPSULE PO (21:41)
--- NOTE | 2022-04-29 22:40 | PCRCNOTE ---
Apnea link started pt on room air.
--- NOTE | 2022-04-29 23:19 | PCRCNOTE ---
RN had to place pt on oxygen 2 liters. Pt was 84% Sp02 RA, Pt 2 liters NC, 95% Sp02.
[2022-04-30] VITALS (9 sets, daily range): BP systolic 132–179; BP diastolic 37–71; PULSE 60–66; RESP 14–18; TEMP 35.9–36.3; O2SAT 94–100
[2022-04-30] MEDS: HEPARIN SODIUM 5,000 UNITS/ML VIAL 5000 UNITS SUB-Q ×3 (06:33→22:09)
[2022-04-30 06:35] LABS: Hematocrit 30.2 % (37.0-47.0); Hemoglobin 8.8 g/dL (12.0-15.0); Mean Corpuscular HGB Conc 29.1 g/dl (32-36); Mean Corpuscular Hemoglobin 28.3 pg (26-34); Mean Corpuscular Volume 97.1 fl (80-100); Mean Platelet Volume 9.8 fl (7.4-10.4); Platelet Count Result 267 k/mm3 (150-375); Red Blood Count 3.11 M/mm3 (4.2-5.4); Red Cell Distribution Width 17.4 % (11.5-14.5); White Blood Count 13.5 K/mm3 (4.5-10.0)
[2022-04-30] MEDS: LEVOTHYROXINE SODIUM 75 MCG TABLET PO (06:46)
[2022-04-30 06:57] LABS: Alanine Aminotransferase 20 U/L (6-35); Albumin Level 3.1 g/dL (3.5-5.1); Alkaline Phosphatase 44 U/L (38-126); Anion Gap 6 mmol/L (8-16); Aspartate Amino Transferase 40 U/L (14-36); Bilirubin,Total 0.6 mg/dL (0.2-1.3); Blood Urea Nitrogen 26 mg/dL (7-17); Calcium 8.1 mg/dL (8.4-10.2); Carbon Dioxide 28 mmol/L (22-30); Chloride 97 mmol/L (98-107); Estimated CRCL calculation 12 ml/min; Estimated Glomerular Filt Rate 14; Glucose 58 mg/dL (65-110); Potassium 3.7 mmol/L (3.4-5.0); Sodium 131 mmol/L (137-145)
[2022-04-30] MEDS: GLUCOSE ORAL GEL 15 GM OF GLUCSE IN 37.5 GM TUBE PO (07:00)
[2022-04-30 07:28] LABS: Glucose Point of Care 101 mg/dl (65-105)
[2022-04-30 07:37] LABS: Glucose Point of Care 102 mg/dl (65-105)
[2022-04-30] MEDS: CHOLECALCIFEROL 1,000 UNITS TABLET 5000 UNITS PO (08:39)
[2022-04-30] MEDS: COLLAGENASE OINT 30 GM TUBE 1 APPLIC TOPICAL (08:39)
[2022-04-30] MEDS: guanFACINE HCL 1 MG TABLET PO (08:39)
[2022-04-30] MEDS: CLOPIDOGREL BISULFATE 75 MG TABLET PO (08:39)
[2022-04-30] MEDS: ISOSORBIDE MONONITRATE 30 MG TAB.ER.24H PO (08:39)
[2022-04-30] MEDS: LIDOCAINE/PRILOCAINE CREAM 2.5-2.5% TUBE 1 EACH TOPICAL (08:39)
[2022-04-30] MEDS: CALCIUM CARBONATE (OSCAL) 500 MG TABLET PO ×2 (08:39→17:58)
[2022-04-30] MEDS: FERROUS SULFATE 324 MG TABLET PO (08:39)
[2022-04-30] MEDS: polyethylene glycoL 3350 17 GM POWD.PACK PO (08:40)
[2022-04-30 11:39] LABS: Glucose Point of Care 194 mg/dl (65-105)
--- NOTE | 2022-04-30 12:08 | PM.PNNEP ---
Progress Note: A&P Assessment and Plan (1) ESRD (end stage renal disease): Code(s): N18.6 - End stage renal disease Status: Chronic Assessment and Plan: HD tomorrow and continue M/W/F dialysis schedule follow electrolytes, volume status, and clearance (2) Aspiration pneumonia: Code(s): J69.0 - Pneumonitis due to inhalation of food and vomit Status: Acute Assessment and Plan: as noted on presentation as well as by events on 04/25/22 on antibiotics follow culture results (3) Unresponsive episode: Code(s): R41.89 - Other symptoms and signs involving cognitive functions and awareness Status: Acute Assessment and Plan: presumably precipitated by/caused by hypoxia... since associated with oral intake, assumption is aspiration occurred leading to hypoxia and then unresponsiveness... HOWEVER, most recent episode (on 04/28/22 during dialysis) was not associated with eating/oral intake... follow mentation closely Neurology recommendations noted testing noted to date (4) Hypoxia: Code(s): R09.02 - Hypoxemia Status: Acute Assessment and Plan: thought to be secondary to aspiration continue supplemental oxygen follow respiratory status CTA of chest negative for PE (5) Insulin dependent type 2 diabetes mellitus: Onset Date: Unknown Code(s): E11.9 - Type 2 diabetes mellitus without complications; Z79.4 - [facility] (current) use of insulin Status: Chronic Assessment and Plan: follow accuchecks glycemic control Will continue to follow. Subjective Date/time seen: 04/30/22 12:08 No apparent issues or problems voiced at this time; issues with hypoglycemia earlier this AM but she was apparently asymptomatic; no other events overnight or earlier this morning expressed. Exam Narrative: General: elderly female in NAD Heart: normal S1 and S2; no rub Lungs: decreased at bases Abdomen: soft, nontender, nondistended, positive bowel sounds Extremities: no cyanosis or clubbing; no edema Skin: left foot in dressings Objective Data Vital Signs Vital Signs: Vital Signs Temp Pulse Resp BP Pulse Ox O2 Del Method O2 Flow Rate 04/30/22 08:30 99 Nasal Cannula 2 04/30/22 08:00 96.6 F L 64 14 132/37 L 99 04/30/22 06:00 97.3 F L 66 14 153/71 H 98 04/30/22 04:00 97.3 F L 66 14 153/41 H 98 04/30/22 04:00 65 04/30/22 00:00 62 04/30/22 00:00 97 F L 64 16 158/54 H 99 04/29/22 20:00 97 F L 56 L 16 182/48 H 100 04/29/22 20:00 59 L 04/29/22 23:23 87 14 95 Nasal Cannula 2 04/29/22 22:50 87 16 92 Room Air 04/29/22 16:00 76 Intake/Output Intake/Output: Intake & Output 04/27/22 04/28/22 04/29/22 04/30/22 23:59 23:59 23:59 23:59 Intake Total 266 885 3300 635 Output Total 2281 Balance 850 -1821 1108 635 Meds/Results Medications: Active Medications Generic Name Dose Route Start Last Admin Trade Name Freq PRN Reason Stop Dose Admin Acetaminophen 650 mg 04/29/22 07:00 04/29/22 12:19 Acetaminophen 325 Mg Tablet PO 650 mg Q6H PRN Administration Mild Pain (1-3) or Fever Calcium Carbonate 500 mg 04/25/22 08:00 04/30/22 12:15 Calcium Carbonate (Oscal) 500 Mg Tablet PO Not Given 0800,1200,1700 [facility] Clopidogrel Bisulfate 75 mg 04/25/22 09:00 04/30/22 08:39 Clopidogrel Bisulfate 75 Mg Tablet PO 75 mg DAILY OSIEL Administration Collagenase 1 applic 04/25/22 09:00 04/30/22 08:39 Collagenase Oint 30 Gm Tube TOPICAL 1 applic DAILY OSIEL Administration Dextrose 12.5 gm 04/26/22 19:31 Dextrose 50% 25 Gm/50 Ml Syringe IV PUSH PRN PRN Hypoglycemia Protocol Ferrous Sulfate 324 mg 04/25/22 09:00 04/30/22 08:39 Ferrous Sulfate 324 Mg Tablet PO 324 mg DAILY OSIEL Administration Gabapentin 400 mg 04/25/22 21:00 04/29/22 21:41 Gabapentin
--- NOTE | 2022-04-30 12:08 | P.PNNP_ITS ---
Progress Note: A&P Assessment and Plan (1) ESRD (end stage renal disease): Code(s): N18.6 - End stage renal disease Status: Chronic Assessment and Plan: * HD tomorrow and continue M/W/ dialysis schedule * follow electrolytes, volume status, and clearance (2) Aspiration pneumonia: Code(s): J69.0 - Pneumonitis due to inhalation of food and vomit Status: Acute Assessment and Plan: * as noted on presentation as well as by events on 04/25/22 * on antibiotics * follow culture results (3) Unresponsive episode: Code(s): R41.89 - Other symptoms and signs involving cognitive functions and awareness Status: Acute Assessment and Plan: * presumably precipitated by/caused by hypoxia... * since associated with oral intake, assumption is aspiration occurred leading to hypoxia and then unresponsiveness... * HOWEVER, most recent episode (on 04/28/22 during dialysis) was not associated with eating/oral intake... 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 Subjective Date/time seen: 04/30/22 12:08 No apparent issues or problems voiced at this time; issues with hypoglycemia earlier this AM but she was apparently asymptomatic; no other events overnight or earlier this morning expressed. Exam Narrative: General: elderly female in NAD Heart: normal S1 and S2; no rub Lungs: decreased at bases Abdomen: soft, nontender, nondistended, positive bowel sounds Extremities: no cyanosis or clubbing; no edema Skin: left foot in dressings Objective Data Vital Signs Vital Signs: Vital Signs Temp Pulse Resp BP Pulse Ox O2 Del Method O2 Flow Rate 04/30/22 08:30 99 Nasal Cannula 2 04/30/22 08:00 96.6 F L 64 14 132/37 L 99 04/30/22 06:00 97.3 F L 66 14 153/71 H 98 04/30/22 04:00 97.3 F L 66 14 153/41 H 98 04/30/22 04:00 65 04/30/22 00:00 62 04/30/22 00:00 97 F L 64 16 158/54 H 99 04/29/22 20:00 97 F L 56 L 16 182/48 H 100 04/29/22 20:00 59 L 04/29/22 23:23 87 14 95 Nasal Cannula 2 04/29/22 22:50 87 16 92 Room Air 04/29/22 16:00 76 Intake/Output Intake/Output: Intake & Output 04/27/22 04/28/22 04/29/22 04/30/22 23:59 23:59 23:59 23:59 Intake Total 226 369 3655 635 Output Total 2281 Balance 850 -1821 1108 635 Meds/Results Medications: Active Medications Generic Name Dose Route Start Last Admin Trade Name Diogenes PRN Reason Stop Dose Admin Acetaminophen 650 mg 04/29/22 07:00 04/29/22 12:19 Acetaminophen 325 Mg Tablet PO
--- NOTE | 2022-04-30 14:48 | PM.IMPN ---
Progress Note: A&P Assessment and Plan (1) Unresponsive episode: Code(s): R41.89 - Other symptoms and signs involving cognitive functions and awareness Status: Acute Assessment and Plan: Patient with a total of 3 unresponsive episodes over the past 5 days, two of which occurred during dialysis. Etiology for this unclear. Head CT on admission with no acute findings. Possibly related to hypoxia. No evidence of cardiogenic etiology. EKG unchanged, pt remains in normal sinus rhythm, and troponin negative. TSH, B12, folate within normal limits. Head CT with no acute findings. Carotid Doppler with <50% stenosis of bilateral internal carotid arteries. ABG with mild hypoxia, no evidence of hypercapnia. apnea link ordered yesterday, appears was started but unable to see report at this time. MRI ordered, awaiting further information regarding patient's lower extremity stents before this can be completed. Attempting to obtain make/ model information from patient's vascular surgeon; expect this information to be available tomorrow. Appreciate neurology consultation. Patient may benefit from EEG to rule out seizure as etiology for unresponsive episodes. (2) Hypoxia: Code(s): R09.02 - Hypoxemia Status: Acute Assessment and Plan: Patient noted to be hypoxic in the 70s on 04/25 following unresponsive episode. O2 sats improved after patient was placed on non-rebreather. CXR showed increased bilateral lower lung infiltrates concerning for aspiration pneumonia. Patient currently maintaining adequate O2 sats on 2 L supplemental O2. CTA negative for pulmonary embolism. continue to wean oxygen as tolerated (3) Aspiration pneumonia: Code(s): J69.0 - Pneumonitis due to inhalation of food and vomit Status: Acute Assessment and Plan: CXR revealed mild bibasilar infiltrates and based on patient presentation, there was concern for aspiration. unresponsive episode with hypoxia while eating lunch on 04/25, suspect repeat aspiration. patient was initially made NPO while awaiting MBS which was completed on 04/26. Recommendations for pureed diet with mildly thickened liquids which will be continued. Continue with speech therapy exercises. Continue IV Zosyn. aspiration precautions in place. Sputum culture ordered, awaiting collection. Blood cultures are negative. Lactic acid within normal limits. Supportive care. (4) Leukocytosis: Code(s): D72.829 - Elevated white blood cell count, unspecified Status: Acute Assessment and Plan: Improving today down to 13.5 .Suspect secondary to aspiration pneumonia. Continue Zosyn. Monitor CBC with differential closely. (5) End-stage renal disease on hemodialysis: Code(s): N18.6 - End stage renal disease; Z99.2 - Dependence on renal dialysis Status: Acute Assessment and Plan: Maintained on hemodialysis on Sunday, Sunday, Sunday. Appreciate nephrology consultation to continue hemodialysis during admission. Last dialysis on 04/28/2022 (6) Peripheral vascular disease: Onset Date: Unknown Code(s): I73.9 - Peripheral vascular disease, unspecified Status: Acute Assessment and Plan: Established with vascular surgeon, Dr. Ocasio at [facility]. Status post left transmetatarsal amputation with recent debridement on 04/20. Continue with dressing changes daily. Continue Plavix. Request to obtain records regarding left lower extremity stent from Dr. Ocasio in order to proceed with MRI. 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 patient had episode of hypoglycemia this morning with blood sugar of 58. Stop daytime in
--- NOTE | 2022-04-30 15:05 | PC.NURSE ---
4th and 5th digit on right foot are showing signs of possible necrosis. Around the site is reddened and inflamed. Pt is not complaining of pain. There is palpable +1 pulses felt at pedal pulse. Foot temperature equal bilaterally. Provider notified. Provider noted will come and assess patient. No orders received. Patient's family noted this is chronic for patient since 11/28.
[2022-04-30 16:54] LABS: Glucose Point of Care 131 mg/dl (65-105)
[2022-04-30 21:18] LABS: Glucose Point of Care 204 mg/dl (65-105)
[2022-04-30] MEDS: GABAPENTIN 400 MG CAPSULE PO (22:09)
[2022-04-30] MEDS: INSULIN GLARGINE (*BKC) 100 UNITS/ML 10 UNITS SUB-Q (22:11)
[2022-05-01] VITALS (18 sets, daily range): BP systolic 110–191; BP diastolic 40–66; PULSE 63–82; RESP 16–20; TEMP 36–36.9; O2SAT 95–100
--- NOTE | 2022-05-01 05:53 | PCRCNOTE ---
patient was on 2L of oxygen for the apnea study
[2022-05-01] MEDS: HEPARIN SODIUM 5,000 UNITS/ML VIAL 5000 UNITS SUB-Q ×3 (05:59→21:39)
[2022-05-01] MEDS: LEVOTHYROXINE SODIUM 75 MCG TABLET PO (06:01)
[2022-05-01 06:49] LABS: Hemoglobin 8.6 g/dL (12.0-15.0); Mean Corpuscular HGB Conc 29.7 g/dl (32-36); Mean Corpuscular Hemoglobin 28.7 pg (26-34); Mean Corpuscular Volume 96.7 fl (80-100); Mean Platelet Volume 9.5 fl (7.4-10.4); Platelet Count Result 250 k/mm3 (150-375); Red Cell Distribution Width 17.6 % (11.5-14.5); White Blood Count 13.6 K/mm3 (4.5-10.0)
[2022-05-01 06:58] LABS: Anion Gap 6 mmol/L (8-16); Blood Urea Nitrogen 31 mg/dL (7-17); Calcium 8.1 mg/dL (8.4-10.2); Carbon Dioxide 27 mmol/L (22-30); Chloride 97 mmol/L (98-107); Estimated CRCL calculation 10 ml/min; Estimated Glomerular Filt Rate 11; Glucose 85 mg/dL (65-110); Potassium 3.6 mmol/L (3.4-5.0); Sodium 130 mmol/L (137-145)
[2022-05-01 07:50] LABS: Glucose Point of Care 78 mg/dl (65-105)
--- NOTE | 2022-05-01 10:03 | PC.NURSE ---
Patient to dialysis per bed at 0955 05/01/22.
--- NOTE | 2022-05-01 10:56 | P.PNNP_ITS ---
Progress Note: A&P Assessment and Plan (1) ESRD (end stage renal disease): Code(s): N18.6 - End stage renal disease Status: Chronic Assessment and Plan: * HD today and continue M/W/ dialysis schedule * follow electrolytes, volume status, and clearance (2) Aspiration pneumonia: Code(s): J69.0 - Pneumonitis due to inhalation of food and vomit Status: Acute Assessment and Plan: * as noted on presentation as well as by events on 04/25/22 * on antibiotics * follow culture results (3) Unresponsive episode: Code(s): R41.89 - Other symptoms and signs involving cognitive functions and awareness Status: Acute Assessment and Plan: * presumably precipitated by/caused by hypoxia... * since associated with oral intake, assumption is aspiration occurred leading to hypoxia and then unresponsiveness... * HOWEVER, most recent episode (on 04/28/22 during dialysis) was not associated with eating/oral intake... * follow mentation closely * Neurology recommendations noted * testing noted to date * possible MRI of brain (once LE stents are verified to be compatible) (4) Hypoxia: Code(s): R09.02 - Hypoxemia Status: Acute Assessment and Plan: * thought to be secondary to aspiration * continue supplemental oxygen * follow respiratory status * CTA of chest negative for PE (5) Insulin dependent type 2 diabetes mellitus: Onset Date: Unknown Code(s): E11.9 - Type 2 diabetes mellitus without complications; Z79.4 - [facility] (current) use of insulin Status: Chronic Assessment and Plan: * follow accuchecks * glycemic control Will continue to follow. Subjective Date/time seen: 05/01/22 10:56 Tolerating dialysis treatment at the time of my visit (seen on HD at ~ 10:45AM); no apparent distress voiced; no other issues/events overnight or earlier this morning. Exam Narrative: General: elderly female in NAD Heart: normal S1 and S2; no rub Lungs: decreased at bases Abdomen: soft, nontender, nondistended, positive bowel sounds Extremities: no cyanosis or clubbing; no edema Skin: left foot in dressings in place Objective Data Vital Signs Vital Signs: Vital Signs Temp Pulse Resp BP Pulse Ox O2 Del Method O2 Flow Rate 05/01/22 04:00 97.6 F 63 20 167/56 H 98 04/30/22 20:00 99 Nasal Cannula 2 04/30/22 22:00 97 F L 60 18 179/53 H 100 04/30/22 20:00 97 F L 60 18 179/53 H 100 04/30/22 23:20 94 Nasal Cannula 2 04/30/22 14:00 96.6 F L 64 15 132/57 L 99 Intake/Output Intake/Output: Intake & Output 04/28/22 04/29/22 04/30/22 05/01/22 23:59 23:59 23:59 23:59 Intake Total 460 1108 1615 415 Output Total 2281 600 Balance -1821 1108 1015 415 Meds/Results Medications: Active Medications Generic Name Dose Route Start Last Admin Trade Name Freq PRN Reason Stop Dose Admin Acetaminophen 650 mg 04/29/22 07:00 04/29/22 12:19 Acetaminophen 325 Mg Tablet PO 650 mg Q6H PRN Administration Mild Pain (1-3) or Fever Calcium Carbonate 500 mg 04/25/22 08:00 04/30/22 17:58 Calcium Carbonate (Oscal) 500 Mg Tablet
--- NOTE | 2022-05-01 10:56 | PM.PNNEP ---
Progress Note: A&P Assessment and Plan (1) ESRD (end stage renal disease): Code(s): N18.6 - End stage renal disease Status: Chronic Assessment and Plan: HD today and continue M/W/ dialysis schedule follow electrolytes, volume status, and clearance (2) Aspiration pneumonia: Code(s): J69.0 - Pneumonitis due to inhalation of food and vomit Status: Acute Assessment and Plan: as noted on presentation as well as by events on 04/25/22 on antibiotics follow culture results (3) Unresponsive episode: Code(s): R41.89 - Other symptoms and signs involving cognitive functions and awareness Status: Acute Assessment and Plan: presumably precipitated by/caused by hypoxia... since associated with oral intake, assumption is aspiration occurred leading to hypoxia and then unresponsiveness... HOWEVER, most recent episode (on 04/28/22 during dialysis) was not associated with eating/oral intake... follow mentation closely Neurology recommendations noted testing noted to date possible MRI of brain (once LE stents are verified to be compatible) (4) Hypoxia: Code(s): R09.02 - Hypoxemia Status: Acute Assessment and Plan: thought to be secondary to aspiration continue supplemental oxygen follow respiratory status CTA of chest negative for PE (5) Insulin dependent type 2 diabetes mellitus: Onset Date: Unknown Code(s): E11.9 - Type 2 diabetes mellitus without complications; Z79.4 - intermediate (current) use of insulin Status: Chronic Assessment and Plan: follow accuchecks glycemic control Will continue to follow. Subjective Date/time seen: 05/01/22 10:56 Tolerating dialysis treatment at the time of my visit (seen on HD at ~ 10:45AM); no apparent distress voiced; no other issues/events overnight or earlier this morning. Exam Narrative: General: elderly female in NAD Heart: normal S1 and S2; no rub Lungs: decreased at bases Abdomen: soft, nontender, nondistended, positive bowel sounds Extremities: no cyanosis or clubbing; no edema Skin: left foot in dressings in place Objective Data Vital Signs Vital Signs: Vital Signs Temp Pulse Resp BP Pulse Ox O2 Del Method O2 Flow Rate 05/01/22 04:00 97.6 F 63 20 167/56 H 98 04/30/22 20:00 99 Nasal Cannula 2 04/30/22 22:00 97 F L 60 18 179/53 H 100 04/30/22 20:00 97 F L 60 18 179/53 H 100 04/30/22 23:20 94 Nasal Cannula 2 04/30/22 14:00 96.6 F L 64 15 132/57 L 99 Intake/Output Intake/Output: Intake & Output 04/28/22 04/29/22 04/30/22 05/01/22 23:59 23:59 23:59 23:59 Intake Total 460 1108 1615 415 Output Total 2281 600 Balance -1821 1108 1015 415 Meds/Results Medications: Active Medications Generic Name Dose Route Start Last Admin Trade Name Freq PRN Reason Stop Dose Admin Acetaminophen 650 mg 04/29/22 07:00 04/29/22 12:19 Acetaminophen 325 Mg Tablet PO 650 mg Q6H PRN Administration Mild Pain (1-3) or Fever Calcium Carbonate 500 mg 04/25/22 08:00 04/30/22 17:58 Calcium Carbonate (Oscal) 500 Mg Tablet PO 500 mg 0800,1200,1700 OSIEL Administration Clopidogrel Bisulfate 75 mg 04/25/22 09:00 04/30/22 08:39 Clopidogrel Bisulfate 75 Mg Tablet PO 75 mg DAILY OSIEL Administration Collagenase 1 applic 04/25/22 09:00 04/30/22 08:39 Collagenase Oint 30 Gm Tube TOPICAL 1 applic DAILY OSIEL Administration Dextrose 12.5 gm 04/26/22 19:31 Dextrose 50% 25 Gm/50 Ml Syringe IV PUSH PRN PRN Hypoglycemia Protocol Epoetin Salvador-epbx 10,000 units 05/01/22 17:00 Epoetin Salvador-Epbx 10,000 Units/Ml Vial IV PUSH 05/01/22 17:01 ONCE ONE Ferrous Sulfate 324 mg 04/25/22 09:00 04/30/22 08:39 Ferrous Sulfate 324 Mg Tablet PO 324 mg DAILY OSIEL Administration Gabapentin 400 mg 04/25/22 21:00 04/30/22 22:09 Gabapentin 400 Mg
[2022-05-01 11:46] LABS: Glucose Point of Care 102 mg/dl (65-105)
[2022-05-01] MEDS: EPOETIN ALFA-EPBX 10,000 UNITS/ML VIAL 10000 UNITS IV PUSH (13:33)
[2022-05-01] MEDS: ISOSORBIDE MONONITRATE 30 MG TAB.ER.24H PO (13:57)
[2022-05-01] MEDS: CHOLECALCIFEROL 1,000 UNITS TABLET 5000 UNITS PO (13:57)
[2022-05-01] MEDS: FERROUS SULFATE 324 MG TABLET PO (13:57)
[2022-05-01] MEDS: CLOPIDOGREL BISULFATE 75 MG TABLET PO (13:57)
[2022-05-01] MEDS: guanFACINE HCL 1 MG TABLET PO (14:00)
[2022-05-01] MEDS: LIDOCAINE/PRILOCAINE CREAM 2.5-2.5% TUBE 1 EACH TOPICAL (14:01)
[2022-05-01] MEDS: COLLAGENASE OINT 30 GM TUBE 1 APPLIC TOPICAL (14:09)
[2022-05-01] MEDS: levETIRAcetam 500 MG TABLET PO ×2 (14:33→21:39)
--- NOTE | 2022-05-01 15:37 | PM.IMPN ---
Progress Note: A&P Assessment and Plan (1) Unresponsive episode: Code(s): R41.89 - Other symptoms and signs involving cognitive functions and awareness Status: Acute Assessment and Plan: Patient with a total of 3 unresponsive episodes over the past 5 days, two of which occurred during dialysis. Etiology for this unclear. Head CT on admission with no acute findings. Possibly related to hypoxia. No evidence of cardiogenic etiology. EKG unchanged, pt remains in normal sinus rhythm, and troponin negative. Patient monitored on telemetry x48 hours, maintained sinus rhythm. TSH, B12, folate within normal limits. Head CT with no acute findings. Carotid Doppler with <50% stenosis of bilateral internal carotid arteries. ABG with mild hypoxia, no evidence of hypercapnia. Appreciate neurology consultation. Plan for EEG to rule out seizure etiology. MRI was ordered on 04/27/22 but not able to be completed due to presence of lower extremity stent. Patient was awaiting identification of stent material. This was obtained today, however now patient's family states that they do not wish to proceed with MRI. Discussed case with Neurology. Given negative head CT, felt that MRI is not necessary and can be deferred based on family wishes. (2) Hypoxia: Code(s): R09.02 - Hypoxemia Status: Acute Assessment and Plan: Patient noted to be hypoxic in the 70s on 04/25 following unresponsive episode. O2 sats improved after patient was placed on non-rebreather. CXR showed increased bilateral lower lung infiltrates concerning for aspiration pneumonia. Patient currently maintaining adequate O2 sats on 2 L supplemental O2. CTA negative for pulmonary embolism. continue to wean oxygen as tolerated. She will need home O2 eval prior to discharge. (3) Aspiration pneumonia: Code(s): J69.0 - Pneumonitis due to inhalation of food and vomit Status: Acute Assessment and Plan: CXR revealed mild bibasilar infiltrates and based on patient presentation, there was concern for aspiration. unresponsive episode with hypoxia while eating lunch on 04/25, suspect repeat aspiration. patient was initially made NPO while awaiting MBS which was completed on 04/26. Recommendations for pureed diet with mildly thickened liquids which will be continued. Continue with speech therapy exercises. Continue IV Zosyn. aspiration precautions in place. Sputum culture ordered, awaiting collection. Blood cultures are negative. Lactic acid within normal limits. Supportive care. (4) Leukocytosis: Code(s): D72.829 - Elevated white blood cell count, unspecified Status: Acute Assessment and Plan: Overall improved, remaining stable at 13.5. Suspect secondary to aspiration pneumonia. Continue Zosyn. Monitor CBC with differential closely. (5) End-stage renal disease on hemodialysis: Code(s): N18.6 - End stage renal disease; Z99.2 - Dependence on renal dialysis Status: Acute Assessment and Plan: Maintained on hemodialysis on Sunday, Sunday, Sunday. Appreciate nephrology consultation to continue hemodialysis during admission. Patient received dialysis this morning. (6) Peripheral vascular disease: Onset Date: Unknown Code(s): I73.9 - Peripheral vascular disease, unspecified Status: Acute Assessment and Plan: Established with vascular surgeon, Dr. Ocasio at [facility]. Status post left transmetatarsal amputation with recent debridement on 04/20. Continue with dressing changes daily. Continue Plavix. Spoke with MA at Dr. Ocasio office today regarding necrotic changes of right great and 2nd toe. Appointment scheduled for 05/04/2022 for evaluation. No indication for emergent evaluation. (7) Insulin dependent type 2 diabetes mellitus: Onset Date: Unknown Code(s): E11.9 - Type 2 diabetes mellitus without complications; Z79.4 - manager terminal (current) use of i
[2022-05-01] MEDS: ACETAMINOPHEN 325 MG TABLET 650 MG PO (16:05)
[2022-05-01 17:07] LABS: Glucose Point of Care 200 mg/dl (65-105)
[2022-05-01] MEDS: INSULIN GLARGINE (*BKC) 100 UNITS/ML 10 UNITS SUB-Q (21:23)
[2022-05-01] MEDS: GABAPENTIN 400 MG CAPSULE PO (21:39)
[2022-05-01 21:47] LABS: Glucose Point of Care 189 mg/dl (65-105)
[2022-05-02] VITALS: BP 165/45; PULSE 66; RESP 18; TEMP 35.8; O2SAT 98
[2022-05-02 04:00] VITALS: BP 156/56; PULSE 69; RESP 16; TEMP 36.3; O2SAT 94
[2022-05-02] MEDS: LEVOTHYROXINE SODIUM 75 MCG TABLET PO (06:09)
[2022-05-02] MEDS: HEPARIN SODIUM 5,000 UNITS/ML VIAL 5000 UNITS SUB-Q ×2 (06:09→12:52)
[2022-05-02 06:35] LABS: Hemoglobin 8.5 g/dL (12.0-15.0); Mean Corpuscular HGB Conc 29.3 g/dl (32-36); Mean Corpuscular Hemoglobin 28.8 pg (26-34); Mean Corpuscular Volume 98.3 fl (80-100); Mean Platelet Volume 9.5 fl (7.4-10.4); Platelet Count Result 266 k/mm3 (150-375); Red Blood Count 2.95 M/mm3 (4.2-5.4); Red Cell Distribution Width 17.9 % (11.5-14.5); White Blood Count 13.5 K/mm3 (4.5-10.0)
[2022-05-02 06:43] LABS: Anion Gap 6 mmol/L (8-16); Blood Urea Nitrogen 18 mg/dL (7-17); Calcium 8.1 mg/dL (8.4-10.2); Carbon Dioxide 30 mmol/L (22-30); Chloride 96 mmol/L (98-107); Estimated CRCL calculation 14 ml/min; Estimated Glomerular Filt Rate 16; Glucose 77 mg/dL (65-110); Potassium 3.2 mmol/L (3.4-5.0); Sodium 132 mmol/L (137-145)
[2022-05-02] MEDS: guanFACINE HCL 1 MG TABLET PO (08:29)
[2022-05-02] MEDS: FERROUS SULFATE 324 MG TABLET PO (08:29)
[2022-05-02] MEDS: CLOPIDOGREL BISULFATE 75 MG TABLET PO (08:29)
[2022-05-02] MEDS: CHOLECALCIFEROL 1,000 UNITS TABLET 5000 UNITS PO (08:29)
[2022-05-02] MEDS: levETIRAcetam 500 MG TABLET PO (08:29)
[2022-05-02] MEDS: ISOSORBIDE MONONITRATE 30 MG TAB.ER.24H PO (08:30)
[2022-05-02 08:34] LABS: Glucose Point of Care 77 mg/dl (65-105)
[2022-05-02 10:00] VITALS: PULSE 68; O2SAT 97
[2022-05-02 10:15] VITALS: PULSE 63; O2SAT 93
[2022-05-02 10:20] VITALS: PULSE 65; O2SAT 95
[2022-05-02 10:31] VITALS: BP 132/54; PULSE 67; RESP 16; TEMP 36.6; O2SAT 99
--- NOTE | 2022-05-02 10:33 | P.PNNP_ITS ---
Progress Note: A&P Assessment and Plan (1) ESRD (end stage renal disease): Code(s): N18.6 - End stage renal disease Status: Chronic Assessment and Plan: * HD tomorrow and continue M/W/ dialysis schedule * follow electrolytes, volume status, and clearance (2) Aspiration pneumonia: Code(s): J69.0 - Pneumonitis due to inhalation of food and vomit Status: Acute Assessment and Plan: * as noted on presentation as well as by events on 04/25/22 * on antibiotics * follow culture results (3) Unresponsive episode: Code(s): R41.89 - Other symptoms and signs involving cognitive functions and awareness Status: Acute Assessment and Plan: * presumably precipitated by/caused by hypoxia... * since associated with oral intake, assumption is aspiration occurred leading to hypoxia and then unresponsiveness... * HOWEVER, most recent episode (on 04/28/22 during dialysis) was not associated with eating/oral intake... * follow mentation closely * Neurology following * testing noted to date * family not interested in pursuing MRI of brain (4) Hypoxia: Code(s): R09.02 - Hypoxemia Status: Acute Assessment and Plan: * thought to be secondary to aspiration * continue supplemental oxygen PRN * follow respiratory status * CTA of chest negative for PE (5) Insulin dependent type 2 diabetes mellitus: Onset Date: Unknown Code(s): E11.9 - Type 2 diabetes mellitus without complications; Z79.4 - halfway (current) use of insulin Status: Chronic Assessment and Plan: * follow accuchecks * glycemic control Will continue to follow. Subjective Date/time seen: 05/02/22 10:33 Tolerated dialysis treatment yesterday without any issues or problems; no other acute issues/events at this time; family not interested in pursing MRI of brain as documented yesterday; no apparent distress noted. Exam Narrative: General: elderly female in NAD Heart: normal S1 and S2; no rub Lungs: decreased at bases Abdomen: soft, nontender, nondistended, positive bowel sounds Extremities: no cyanosis or clubbing; no edema Skin: left foot in dressings in place Objective Data Vital Signs Vital Signs: Vital Signs Temp Pulse Resp BP Pulse Ox O2 Del Method O2 Flow Rate 05/02/22 04:00 97.4 F L 69 16 156/56 H 94 05/02/22 00:00 96.4 F L 66 18 165/45 H 98 05/01/22 20:00 97.2 F L 65 16 143/41 H 100 05/01/22 20:10 95 Nasal Cannula 2 05/01/22 13:33 97.5 F L 75 16 155/54 H 05/01/22 13:28 77 153/56 H 05/01/22 13:20 81 110/57 L 05/01/22 13:00 82 125/49 L 05/01/22 12:40 79 132/60 05/01/22 12:20 79 126/60 05/01/22 12:00 74 114/57 L 05/01/22 11:40 70 135/60 05/01/22 11:20 71 134/54 L 05/01/22 11:00 73 133/65 05/01/22 10:40 68 191/40 H Intake/Output Intake/Output: Intake & Output 04/29/22 04/30/22 05/01/22 05/02/22 23:59 23:59 23:59 23:59 Intake Total 1108 1615 1155 0 Output Total 600 1600 0 Balance 1108 1015 -445 0 Meds/Results Medications: Active Medications Gene
--- NOTE | 2022-05-02 10:33 | PM.PNNEP ---
Progress Note: A&P Assessment and Plan (1) ESRD (end stage renal disease): Code(s): N18.6 - End stage renal disease Status: Chronic Assessment and Plan: HD tomorrow and continue M/W/F dialysis schedule follow electrolytes, volume status, and clearance (2) Aspiration pneumonia: Code(s): J69.0 - Pneumonitis due to inhalation of food and vomit Status: Acute Assessment and Plan: as noted on presentation as well as by events on 04/25/22 on antibiotics follow culture results (3) Unresponsive episode: Code(s): R41.89 - Other symptoms and signs involving cognitive functions and awareness Status: Acute Assessment and Plan: presumably precipitated by/caused by hypoxia... since associated with oral intake, assumption is aspiration occurred leading to hypoxia and then unresponsiveness... HOWEVER, most recent episode (on 04/28/22 during dialysis) was not associated with eating/oral intake... follow mentation closely Neurology following testing noted to date family not interested in pursuing MRI of brain (4) Hypoxia: Code(s): R09.02 - Hypoxemia Status: Acute Assessment and Plan: thought to be secondary to aspiration continue supplemental oxygen PRN follow respiratory status CTA of chest negative for PE (5) Insulin dependent type 2 diabetes mellitus: Onset Date: Unknown Code(s): E11.9 - Type 2 diabetes mellitus without complications; Z79.4 - [facility]CC (current) use of insulin Status: Chronic Assessment and Plan: follow accuchecks glycemic control Will continue to follow. Subjective Date/time seen: 05/02/22 10:33 Tolerated dialysis treatment yesterday without any issues or problems; no other acute issues/events at this time; family not interested in pursing MRI of brain as documented yesterday; no apparent distress noted. Exam Narrative: General: elderly female in NAD Heart: normal S1 and S2; no rub Lungs: decreased at bases Abdomen: soft, nontender, nondistended, positive bowel sounds Extremities: no cyanosis or clubbing; no edema Skin: left foot in dressings in place Objective Data Vital Signs Vital Signs: Vital Signs Temp Pulse Resp BP Pulse Ox O2 Del Method O2 Flow Rate 05/02/22 04:00 97.4 F L 69 16 156/56 H 94 05/02/22 00:00 96.4 F L 66 18 165/45 H 98 05/01/22 20:00 97.2 F L 65 16 143/41 H 100 05/01/22 20:10 95 Nasal Cannula 2 05/01/22 13:33 97.5 F L 75 16 155/54 H 05/01/22 13:28 77 153/56 H 05/01/22 13:20 81 110/57 L 05/01/22 13:00 82 125/49 L 05/01/22 12:40 79 132/60 05/01/22 12:20 79 126/60 05/01/22 12:00 74 114/57 L 05/01/22 11:40 70 135/60 05/01/22 11:20 71 134/54 L 05/01/22 11:00 73 133/65 05/01/22 10:40 68 191/40 H Intake/Output Intake/Output: Intake & Output 04/29/22 04/30/22 05/01/22 05/02/22 23:59 23:59 23:59 23:59 Intake Total 1108 1615 1155 0 Output Total 600 1600 0 Balance 1108 1015 -445 0 Meds/Results Medications: Active Medications Generic Name Dose Route Start Last Admin Trade Name Freq PRN Reason Stop Dose Admin Acetaminophen 650 mg 04/29/22 07:00 05/01/22 16:05 Acetaminophen 325 Mg Tablet PO 650 mg Q6H PRN Administration Mild Pain (1-3) or Fever Calcium Carbonate 500 mg 05/01/22 16:35 Calcium Carbonate (Oscal) 500 Mg Tablet PO 0800,1200,1700 PRN Indigestion Clopidogrel Bisulfate 75 mg 04/25/22 09:00 05/02/22 08:29 Clopidogrel Bisulfate 75 Mg Tablet PO 75 mg DAILY OSIEL Administration Collagenase 1 applic 04/25/22 09:00 05/01/22 14:09 Collagenase Oint 30 Gm Tube TOPICAL 1 applic DAILY OSIEL Administration Dextrose 12.5 gm 04/26/22 19:31 Dextrose 50% 25 Gm/50 Ml Syringe IV PUSH PRN PRN Hypoglycemia Protocol Ferrous Sulfate 324 mg 04/25/22
--- NOTE | 2022-05-02 10:59 | P.NEURO_ITS ---
Neurology EEG Report General Information Date of Study: 05/02/22 TEST eeg DIAGNOSIS Unresponsive episodes CONDITION OF RECORDING sleeping throughout the tracing EEG NUMBER [id number] CLINICAL HISTORY patient has been documented to have unresponsive episodes though patient slept throughout the setup and whole tracing. EEG DESCRIPTION Background rhythm consists of low to medium voltage 6 to 7 hertz per 2nd theta activity admixed with low to medium voltage 8 hertz per 2nd alpha activity. There is no change throughout the tracing during drowsiness or sleep. Hyperventilation not done. Photic stimulation not done. Non paroxysmal. Nonfocal. Nonlateralizing. IMPRESSION No evidence of any paroxysmal discharge though throughout the tracing patient was sleeping and also there was no evidence of any focal slow activity clinical correlation recommended. This particular tracing is not indicated of his status epilepticus, focal slow activity, or paroxysmal activity. Finding could be s uggestive of organic or metabolic encephalopathy. Clinical correlation recommended.
[2022-05-02 12:33] LABS: Glucose Point of Care 190 mg/dl (65-105)
--- NOTE | 2022-05-02 12:38 | WPDNEUROPN ---
Subjective Date/time seen: 05/02/22 12:38 Interval history: 77 years old lady admitted to the hospital through the emergency room and for the complaints of unresponsiveness during dialysis seen by Dr. 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 She does have ongoing aspiration pneumonia due to aspiration on food and vomitus and the treatment will be continued as such Objective Data Vital Signs Vital Signs: Vital Signs - 24 hr 05/01/22 12:40 05/01/22 13:00 05/01/22 13:20 Temperature Pulse Rate 79 82 81 Respiratory Rate Blood Pressure 132/60 125/49 L 110/57 L Pulse Oximetry Oxygen Delivery Oxygen Flow Rate Fraction of Inspired Oxygen 05/01/22 13:28 05/01/22 13:33 05/01/22 20:10 Temperature 36.4 C L Pulse Rate 77 75 Respiratory Rate 16 Blood Pressure 153/56 H 155/54 H Pulse Oximetry 95 Oxygen Delivery Nasal Cannula Oxygen Flow Rate 2 Fraction of Inspired Oxygen 28 05/01/22 20:00 05/02/22 00:00 05/02/22 04:00 Temperature 36.2 C L 35.8 C L 36.3 C L Pulse Rate 65 66 69 Respiratory Rate 16 18 16 Blood Pressure 143/41 H 165/45 H 156/56 H Pulse Oximetry 100 98 94 Oxygen Delivery Oxygen Flow Rate Fraction of Inspired Oxygen 05/02/22 10:31 Temperature 36.6 C Pulse Rate 67 Respiratory Rate 16 Blood Pressure 132/54 L Pulse Oximetry 99 Oxygen Delivery Oxygen Flow Rate Fraction of Inspired Oxygen Intake/Output Intake/Output: Intake & Output 04/29/22 04/30/22 05/01/22 05/02/22 23:59 23:59 23:59 23:59 Intake Total 1108 1615 1155 120 Output Total 600 1600 0 Balance 1108 1015 -445 120 Meds/Results Medications: Active Medications Generic Name Dose Route Start Last Admin Trade Name Freq PRN Reason Stop Dose Admin Acetaminophen 650 mg 04/29/22 07:00 05/01/22 16:05 Acetaminophen 325 Mg Tablet PO 650 mg Q6H PRN Administration Mild Pain (1-3) or Fever Calcium Carbonate 500 mg 05/01/22 16:35 Calcium Carbonate (Oscal) 500 Mg Tablet PO 0800,1200,1700 PRN Indigestion Clopidogrel Bisulfate 75 mg 04/25/22 09:00 05/02/22 08:29 Clopidogrel Bisulfate 75 Mg Tablet PO 75 mg DAILY OSIEL Administration Collagenase 1 applic 04/25/22 09:00 05/01/22 14:09 Collagenase Oint 30 Gm Tube TOPICAL 1 applic DAILY OSIEL Administration Dextrose 12.5 gm 04/26/22 19:31 Dextrose 50% 25 Gm/50 Ml Syringe IV PUSH PRN PRN Hypoglycemia Protocol Ferrous Sulfate 324 mg 04/25/22 09:00 05/02/22 08:29 Ferrous Sulfate 324 Mg Tablet PO 324 mg DAILY OSIEL Administration Gabapentin 400 mg 04/25/22 21:00 05/01/22 21:39 Gabapentin 400 Mg Capsule PO 400 mg HS OSIEL Administration Glucagon 1 mg 04/26/22 19:31 Glucagon For Inj 1 Mg Vial IM PRN PRN Hypoglycemia Protocol Glucose 15 gm 04/26/22 19:31 04/30/22 07:00 Glucose Oral Gel 15 Gm Of Glucse In 37.5 Gm Tube PO 15 gm PRN PRN Administration Hypoglycemia Protocol Guanfacine HCl 1 mg 04/25/22 09:00 05/02/22 08:29 Guanfacine Hcl 1 Mg Tablet PO 1 mg DAILY OSIEL Administration Heparin Sodium (Porcine) 5,000 units 04/25/22 14:00 05/02/22 06:09 Heparin Sodium 5,000 Units/Ml Vial SUB-Q 5,000 units Q8HR OSIEL Administration Albumin Human 50 mls @ 999 mls/hr 04/26/22 07:20 Albutein IVPB 05/26/22 07:19 Q10M PRN HYPOTENSION Dextrose 1,000 mls @ 100 mls
[2022-05-02] MEDS: POTASSIUM CHLORIDE 20 MEQ TABLET PO (12:52)
[2022-05-02] MEDS: COLLAGENASE OINT 30 GM TUBE 1 APPLIC TOPICAL (12:53)
[2022-05-02] MEDS: LIDOCAINE/PRILOCAINE CREAM 2.5-2.5% TUBE 1 EACH TOPICAL (12:53)
[2022-05-02] MEDS: ACETAMINOPHEN 325 MG TABLET 650 MG PO (13:03)
--- NOTE | 2022-05-02 13:23 | PCNWS ---
Weekly nutritional screen. Patient is tolerating Pureed, level 4, level 2 liquids, renal dialysis diet with adequate intake at 75-100%. Reports no interest in supplements. No weight loss reported. No nutritional needs at this time.
--- NOTE | 2022-05-02 13:34 | PM.DS ---
DS: Admitting Diagnosis Discharge Date 05/02/2022 Admitting Diagnosis Unresponsive episode DS: Discharge Diagnosis Discharge Diagnosis (1) Unresponsive episode: Code(s): R41.89 - Other symptoms and signs involving cognitive functions and awareness Status: Acute Assessment and Plan: Patient with a total of 3 unresponsive episodes over the past 5 days, two of which occurred during dialysis. Etiology unclear. Head CT on admission with no acute findings. Possibly related to hypoxia vs seizure. No evidence of cardiogenic etiology. EKG unchanged, pt remained in normal sinus rhythm on telemetry and troponin was negative. TSH, B12, folate within normal limits. Carotid Doppler with <50% stenosis of bilateral internal carotid arteries. ABG with mild hypoxia, no evidence of hypercapnia. She was seen in consultation by neurology. EEG completed with no acute findings. MRI was deferred based on pt/family wishes. Per neurology, pt started on Keppra 500 mg BID. (2) Hypoxia: Code(s): R09.02 - Hypoxemia Status: Acute Assessment and Plan: Patient noted to be hypoxic in the 70s on 04/25 following unresponsive episode. O2 sats improved after patient was placed on non-rebreather. CXR showed increased bilateral lower lung infiltrates concerning for aspiration pneumonia. See plan below. CTA negative for PE. She was weaned from oxygen and home oxygen evaluation was completed on 05/02, patient has no ongoing oxygen requirements. (3) Aspiration pneumonia: Code(s): J69.0 - Pneumonitis due to inhalation of food and vomit Status: Acute Assessment and Plan: CXR revealed mild bibasilar infiltrates and based on patient presentation, there was concern for aspiration. MBS was completed on 04/26/22 with recommendations for pureed diet with mildly thickened liquids. She continued to participate in speech therapy and progressed well. She was advanced to minced and moist diet and will continue thickened liquids. Continue outpatient speech therapy via home health. She completed 7 days of IV zosyn. Blood cultures negative. Lactic within normal limits. Supportive care provided. (4) Leukocytosis: Code(s): D72.829 - Elevated white blood cell count, unspecified Status: Acute Assessment and Plan: Improved. I have blood cell count elevated up to 23.7 initially, declined to 13.5. Cades to be secondary to aspiration pneumonia. (5) End-stage renal disease on hemodialysis: Code(s): N18.6 - End stage renal disease; Z99.2 - Dependence on renal dialysis Status: Acute Assessment and Plan: Maintained on hemodialysis on Sunday, Sunday, Sunday which was continued during admission. (6) Peripheral vascular disease: Onset Date: Unknown Code(s): I73.9 - Peripheral vascular disease, unspecified Status: Acute Assessment and Plan: Established with vascular surgeon, Dr. Ocasio at [facility]. Status post left transmetatarsal amputation with recent debridement on 04/20. Continue with dressing changes daily. Continue Plavix. Patient noted to have chronic appearing necrotic changes of right great and 2nd toe. Spoke with MA at Dr. Ocasio office regarding this and pt was scheduled for evaluation on 05/04/22 as an outpatient. (7) Insulin dependent type 2 diabetes mellitus: Onset Date: Unknown Code(s): E11.9 - Type 2 diabetes mellitus without complications; Z79.4 - longterm (current) use of insulin Status: Chronic Assessment and Plan: A1c is 6.3. patient had episode of hypoglycemia on 04/30 blood sugar of 58. Morning Lantus was stopped. Patient transitioned to once daily Lantus 20 units q.h.s. blood sugars remained stable on this regimen. She will monitor blood sugars at home and follow-up with PCP (8) Cholelithiasis NOS: Code(s): K80.20 - Calculus of gallbladder without cholecystitis without obstruction Status:
--- NOTE | 2022-05-02 14:05 | PCRCNOTE ---
HOME O2 EVAL COMPLETE. PATIENT DOES NOT REQUIRE OXYGEN AT THIS TIME. RN NOTIFIED.
--- NOTE | 2022-05-02 16:45 | PC.NURSE ---
After going through discharge paperwork, pt was attempting with assist of two staff to climb into wheelchair, when she stated she was dizzy. says this is normal for her. Unsafe to attempt stand and pivot at this time. Notified we would need to transfer her back home via EMS/stretcher. appeared upset that she had deteriorated to this condition during her hospitalization as she only had been lying in bed during her whole stay here . Reassured that pt would be receiving PT/OT/ST/RN care at home to help her return to her baseline. Pt upset but voiced understanding.
== END 2022-05-02 16:35 | disposition home health service (06) | DRG 177 ==
LOC: ANHED 18:39 → ANH3MEDSUR 19:51
PROVIDERS: Internal Medicine Nephrology; Admitting Provider Internal Medicine; Emergency Provider Emergency Medicine; Visit Provider Physician Assistant
DX: J69.0 Pneumonitis due to inhalation of food and vomit (principal); N18.6 End stage renal disease; I13.2 Hypertensive heart and chronic kidney disease with heart failure and with stage 5 chronic kidney disease, or end stage renal disease; I50.32 Chronic diastolic (congestive) heart failure; G93.40 Encephalopathy, unspecified; R09.02 Hypoxemia; R41.89 Other symptoms and signs involving cognitive functions and awareness; D72.829 Elevated white blood cell count, unspecified; E11.42 Type 2 diabetes mellitus with diabetic polyneuropathy; I73.9 Peripheral vascular disease, unspecified; E11.22 Type 2 diabetes mellitus with diabetic chronic kidney disease; I25.10 Atherosclerotic heart disease of native coronary artery without angina pectoris; D63.1 Anemia in chronic kidney disease; K80.20 Calculus of gallbladder without cholecystitis without obstruction; Z20.822 Contact with and (suspected) exposure to COVID-19; Z66 Do not resuscitate; Z99.2 Dependence on renal dialysis; I25.2 Old myocardial infarction; Z86.73 Personal history of transient ischemic attack (TIA), and cerebral infarction without residual deficits; Z95.5 Presence of coronary angioplasty implant and graft; Z89.422 Acquired absence of other left toe(s); Z87.891 Personal history of nicotine dependence; Z79.4 Long term (current) use of insulin
CPT/HCPCS: 36415; 36600; 70450; 71045; 71275; 80048; 80053; 80074; 81001; 82375; 82550; 82607; 82746; 82805; 82948; 83036; 83050; 83605; 83735; 84443; 84484; 85025; 85027; 85610; 85730; 86706; 87040; 87340; 87637; 92526; 92611; 93005; 93880; 94618; 94762; 95816; 96361; 96365; 96366; 96375; 96376; 99285; A9270; G0257; G0378; J0131; J1644; J1815; J2543; J7030; Q5105; Q9967